=== PATIENT | male | born 1965 | race Caucasian/White ===

== ENCOUNTER 2020-01-25 12:42 | Outpatient (REF) | payer OTHER, SELFPAY ==
--- NOTE | 2020-01-25 13:19 | US_ITS ---
EXAMINATION: NONINVASIVE ASSESSMENT OF THE ARTERIES OF LEFT LOWER EXTREMITY Anoml Miguel MD CLINICAL INFORMATION: Left calf pain with history of stent TECHNIQUE: Left lower extremity duplex ultrasound was performed with velocity measurements and waveform analysis in the common femoral arteries, profunda femoris arteries, proximal mid and distal superficial femoral arteries, popliteal arteries and tibial vessels. This study was performed only at rest. COMPARISON: None FINDINGS: Velocities in cm/sec and phasicity as well as the presence of plaque are reported below. LEFT LEG: Minimal plaque is seen and triphasic throughout. Common Femoral: 76 Profunda Femoris: 37 Proximal SFA: 58 Mid SFA: 70 Distal SFA: 73 Popliteal: 33 Posterior tibial: 49 IMPRESSION: There is no evidence of any hemodynamically significant lower extremity arterial disease by pressure, waveform or duplex Doppler criteria at rest.
[2020-01-25 14:43] LABS: MANUAL DIFF FLAG NO
[2020-01-25 14:46] LABS: Basophils Absolute Auto 0.1 X10*3/uL (0.0-0.2); Basophils Percent Auto 0.7 % (0-2); Eosinophils Absolute Auto 0.7 X10*3/uL (0.0-0.4); Eosinophils Percent Auto 6.5 % (0-4); Hematocrit 39.7 % (42-52); Imm Gran Abs Auto 0.06 X10*3/uL (0.00-0.03); Imm Gran Pct Auto 0.6 % (0.0-0.4); Lymphocytes Absolute Auto 2.7 X10*3/uL (1.2-4.9); Lymphocytes Percent Auto 25.1 % (20-40); Mean Corpuscular HGB Conc 32.7 g/dl (31.0-36.0); Mean Corpuscular Hemoglobin 29.9 pg (27.0-33.0); Mean Corpuscular Volume 91.3 fL (80-98); Mean Platelet Volume 10.7 fL (9.4-12.4); Monocytes Absolute Auto 0.7 X10*3/uL (0.1-1.2); Neutrophils Absolute Auto 6.4 X10*3/uL (2.0-8.3); Neutrophils Percent Auto 60.1 % (45-73); Platelet Count 238 X10*3/uL (160-400); Red Blood Count 4.35 X10*6/uL (4.60-5.80); White Blood Count 10.6 X10*3/uL (4.8-10.8)
[2020-01-25 15:11] LABS: Estimated Average Glucose 306 mg/dL; Hemoglobin A1c % 12.3 %
[2020-01-25 15:12] LABS: Alanine Aminotransferase 39 U/L (0-40); Albumin Level 4.2 g/dL (3.5-5.0); Alkaline Phosphatase 90 U/L (39-117); Anion Gap 13 (12-20); Aspartate Amino Transferase 31 U/L (5-37); Bilirubin Total 0.5 mg/dL (0.0-1.0); Blood Urea Nitrogen 21 mg/dL (9-16); C Reactive Protein 1.14 mg/dL (< or = 0.50); Calcium 10.1 mg/dL (8.4-10.2); Carbon Dioxide 29 mmol/L (22-29); Chloride 99 mmol/L (96-108); Estimated Glomerular Filt Rate > 60; Glucose Random 332 mg/dL (60-115); Potassium 5.1 mmol/l (3.3-5.1); Sodium 136 mmol/L (135-145); Total Protein 7.6 g/dL (6.5-8.0)
== END 2020-01-25 12:43 | disposition home or self-care (01) ==
LOC: HO.US 12:42
PROVIDERS: PCP Internal Medicine; Visit Provider Internal Medicine
DX: M79.662 Pain in left lower leg (principal)
CPT/HCPCS: 36415; 80053; 83036; 85025; 86140; 93926; 93971

== ENCOUNTER 2020-04-19 11:45 | Outpatient (REF) | payer OTHER, SELFPAY ==
[2020-04-19 12:38] LABS: MANUAL DIFF FLAG NO
[2020-04-19 12:39] LABS: Basophils Absolute Auto 0.1 X10*3/uL (0.0-0.2); Basophils Percent Auto 0.7 % (0-2); Eosinophils Absolute Auto 0.6 X10*3/uL (0.0-0.4); Eosinophils Percent Auto 5.7 % (0-4); Hematocrit 40.8 % (42-52); Hemoglobin 13.4 g/dl (14.0-18.0); Imm Gran Abs Auto 0.04 X10*3/uL (0.00-0.03); Imm Gran Pct Auto 0.4 % (0.0-0.4); Lymphocytes Absolute Auto 2.7 X10*3/uL (1.2-4.9); Lymphocytes Percent Auto 26.6 % (20-40); Mean Corpuscular HGB Conc 32.8 g/dl (31.0-36.0); Mean Corpuscular Volume 91.5 fL (80-98); Mean Platelet Volume 10.4 fL (9.4-12.4); Monocytes Absolute Auto 0.7 X10*3/uL (0.1-1.2); Monocytes Percent Auto 6.3 % (2-11); Neutrophils Absolute Auto 6.2 X10*3/uL (2.0-8.3); Neutrophils Percent Auto 60.3 % (45-73); Platelet Count 248 X10*3/uL (160-400); Red Blood Count 4.46 X10*6/uL (4.60-5.80); Red Cell Distribution Width 12.9 % (11.0-16.0); White Blood Count 10.3 X10*3/uL (4.8-10.8)
[2020-04-19 12:48] LABS: Estimated Average Glucose 312 mg/dL; Hemoglobin A1c % 12.5 %
[2020-04-19 13:06] LABS: Alanine Aminotransferase 35 U/L (0-40); Albumin Level 4.3 g/dL (3.5-5.0); Alkaline Phosphatase 86 U/L (39-117); Anion Gap 14 (12-20); Aspartate Amino Transferase 21 U/L (5-37); Bilirubin Total 0.6 mg/dL (0.0-1.0); Blood Urea Nitrogen 21 mg/dL (9-16); Calcium 9.8 mg/dL (8.4-10.2); Carbon Dioxide 28 mmol/L (22-29); Chloride 99 mmol/L (96-108); Estimated Glomerular Filt Rate > 60; Glucose Random 348 mg/dL (60-115); Potassium 5.1 mmol/l (3.3-5.1); Sodium 136 mmol/L (135-145)
[2020-04-19 14:37] LABS: Creatinine Urine 63.44 mg/dL; Microalbum/Creatinine Ratio Ur 77.2 ug/mg cr
== END 2020-04-19 11:46 | disposition home or self-care (01) ==
LOC: HO.LAB 11:45
PROVIDERS: PCP Internal Medicine; Visit Provider Internal Medicine
DX: E11.9 Type 2 diabetes mellitus without complications (principal); I10 Essential (primary) hypertension
CPT/HCPCS: 36415; 80053; 82043; 83036; 85025

== ENCOUNTER → 2020-05-15 12:59 | Outpatient (BNVA) | payer OTHER, SELFPAY | PROVIDERS: PCP Internal Medicine; Visit Provider Internal Medicine | DX: E66.01 Morbid (severe) obesity due to excess calories (principal); G47.33 Obstructive sleep apnea (adult) (pediatric); J98.4 Other disorders of lung | CPT/HCPCS: 99202 ==

== ENCOUNTER 2020-05-15 14:09 | Outpatient (REF) | payer OTHER, SELFPAY ==
--- NOTE | 2020-05-15 16:51 | PFT_ITS ---
FLOWS: FEV1 of 70% of predicted at 2.89 L. FVC 64% of predicted at 3.40 L. FEV1 to FVC ratio of 0.85. No bronchodilator response. LUNG VOLUMES: Total lung capacity 86% of predicted at 6.40 L. Residual volume 118% of predicted at 2.63 L. Slow vital capacity 73% of predicted at 3.77 L. Expiratory reserve volume 4% of predicted at 0.08 L. Diffusion capacity is normal. IMPRESSION: No obstructive or restrictive ventilatory defect. No bronchodilator response. Decreased expiratory reserve volume suggests extrathoracic restriction likely secondary to abdominal obesity. Neymar Vazquez MD AP/MODL / [id number]
== END 2020-05-15 14:10 | disposition home or self-care (01) ==
LOC: HO.RESP 14:09
PROVIDERS: Visit Provider Internal Medicine
DX: J98.4 Other disorders of lung (principal); E66.01 Morbid (severe) obesity due to excess calories
CPT/HCPCS: 94060; 94727; 94729

== ENCOUNTER 2020-06-26 12:36 | Emergency (ER) | payer OTHER, SELFPAY ==
--- NOTE | ~2020-06-26 | XR_ITS ---
EXAMINATION: XR FOOT, LEFT CLINICAL INFORMATION: Question foreign body COMPARISON: 01/15/2019 TECHNIQUE: AP, lateral, and oblique views of the left foot. FINDINGS: Patient is status post amputation of the fifth ray. There is a chronic fourth metatarsal fracture with prominent callus formation and bony remodeling. Increased healing since the prior study from 2019. There is no acute fractures seen. Alignment is otherwise maintained. No osseous erosions. Achilles heel spur. Mild soft tissue swelling of the forefoot. No radiopaque foreign body. XR/XR foot LT min 3V IMPRESSION: No radiopaque foreign body. Continued healing of the fourth metatarsal fracture with bone callus formation present. No acute osseous abnormality.
[2020-06-26 12:50] VITALS: BP 183/81; PULSE 91; RESP 16; TEMP 36.6; O2SAT 97; BMI 47.2
--- NOTE | 2020-06-26 15:14 | ED_ITS ---
HPI - Wound/Laceration General Chief Complaint: Wound/Laceration Stated Complaint: puncture wound - foot Time Seen by Provider: 06/26/20 15:14 Source: patient Mode of arrival: ambulatory Limitations: no limitations History of Present Illness HPI narrative: 54-year-old male with a past medical history of diabetes and neuropathy being followed by his PCP presenting to the ED with complaints of a puncture wound to his left foot after walking outside with his crocs outside unsure how he sustained a puncture wound. He is unsure if he has a foreign body. Reports he recently had his tetanus approximately 1 year ago. Denies any other symptoms complaints or concerns at this time. Onset (ago): hour(s) (A few hours prior to arrival) Location: other (Left foot plantar aspect) Place: outdoors Patient tetanus UTD: Yes Context: accidental Associated symptoms: none Related Data Home Medications Medication Instructions Recorded Confirmed clopidogrel 75 mg tablet 75 mg PO DAILY 05/15/20 gabapentin 300 mg capsule 300 mg PO QID PRN cap 05/15/20 glipizide 5 mg tablet 5 mg PO BID 05/15/20 insulin glargine 100 unit/mL (3 64 unit SUBCUT ONCE ml 05/15/20 mL) subcutaneous pen lisinopril 2.5 mg tablet 2.5 mg PO DAILY 05/15/20 metformin 1,000 mg tablet 1,000 mg PO BID 05/15/20 simvastatin 20 mg tablet 20 mg PO DAILY 05/15/20 Previous Rx's Medication Instructions Recorded ciprofloxacin HCl [Cipro] 500 mg PO BID 14 Days #28 tab 06/26/20 doxycycline monohydrate 100 mg PO BID 14 Days #28 cap 06/26/20 Allergies Allergy/AdvReac Type Severity Reaction Status Date / Time penicillin G Allergy Unknown Unknown Verified 05/15/20 13:31 Review of Systems Review of Systems: Constitutional : No Fever, No Chills, Cardiovascular : No Chest Pain, No SOB Respiratory : No Dyspnea Gastrointestinal : No abdominal pain Musculoskeletal : No Joint Swelling Skin : positive skin laceration, No Foreign bodies, No rash, No surrounding erythema Neuro : No Weakness, No Numbness/tingling Psych : No SI/HI/thoughts of self injury Yes all other systems are reviewed and are negative PMFSH Past Medical History Attestation statement: The following information was validated with the patient. Medical History Diabetes Morbid obesity RIGOBERTO (obstructive sleep apnea) Restrictive lung disease Social History Social History Advance Directives: No Advance Directives Information Provided: No Physical Exam Vital Signs: Vital Signs: Last Vital Signs Temp 97.8 F 06/26/20 12:50 Pulse 91 06/26/20 12:50 Resp 16 06/26/20 12:50 BP 183/81 H 06/26/20 12:50 Pulse Ox 97 06/26/20 12:50 Body Mass Index 47.2 vital signs have been reviewed as normal and appeared to be correct. Blood pressure hypertensive. Heart rate normal. Respiration rate normal. Temperature normal. Oxygen saturation normal. Appearance: Alert. Oriented X3. No acute distress. Head: Normal external exam. Normocephalic. Atraumatic. Eyes: PERRLA. EOMI. Conjunctiva and sclera normal. Eyelids normal. ENT: EAC normal. TM's Normal. Pharynx normal. Uvula midline. Moist mucous membranes. Neck: Normal inspection. Neck supple. FROM. No adenopathy. No meningeal signs. No neck mass noted. CVS: Normal heart rate and rhythm. Heart sound normal. No murmurs noted. Pulses normal throughout. Respiratory: No respiratory distress. Painless inspiration. Breath sounds normal. No wheezes/rales/rhonchi noted. Chest nontender. No accessory muscle usage noted or decreased air movement noted. Back: Full range of motion noted. Skin: Skin warm and dry. Normal skin color. Normal skin turgor. No rashes/lesions/lacerations noted. Extremities: To left plantar aspect distal aspect patient has puncture wound no foreign bodies noted. No signs of infection. No streaking/induration/fluctuance noted. No lower extremity edema. No calf tenderness noted. Otherwise all other Extremities exhibit normal range of motion and nontender. Neuro: Oriented X 3. No motor deficit. No sensory deficit. Reflexes normal. Course Course Course Narrative: 54-year-old male with a past medical history of diabetes and diabetic neuropathy being followed by his PCP presenting to the ED after he sustained a puncture wound prior to arrival outside of his house while wearing his shoes. He is unsure how he sustained the injury. No signs of infection at this time. X-ray negative for any foreign bodies. Will DC home with antibiotics and symptomatic treatment as patient is already on up-to-date on his tetanus and instructions return if any new or worsening symptoms to follow up with primary care provider. Patient understands agrees the plan. MDM - Wound/Laceration Medical Records Attestation: I reviewed the patient's medical records. Imaging Data Left foot x-ray: Attestation: I personally reviewed and interpreted this imaging study as follows: Radiologist's impression: FINDINGS: Patient is status post amputation of the fifth ray. There is a chronic fourth metatarsal fracture with prominent callus formation and bony remodeling. Increased healing since the prior study from 2019. There is no acute fractures seen. Alignment is otherwise maintained. No osseous erosions. Achilles heel spur. Mild soft tissue swelling of the forefoot. No radiopaque foreign body. XR/XR foot LT min 3V IMPRESSION: No radiopaque foreign body. Continued healing of the fourth metatarsal fracture with bone callus formation present. No acute osseous abnormality. Discharge Plan Discharge Clinical Impression: Puncture wound of foot Patient Disposition: Home, Self-Care Instructions: Puncture Wound in the Foot (ED) Additional Instructions: Your left foot x-ray revealed FINDINGS: Patient is status post amputation of the fifth ray. There is a chronic fourth metatarsal fracture with prominent callus formation and bony remodeling. Increased healing since the prior study from 2019. There is no acute fractures seen. Alignment is otherwise maintained. No osseous erosions. Achilles heel spur. Mild soft tissue swelling of the forefoot. No radiopaque foreign body. XR/XR foot LT min 3V IMPRESSION: No radiopaque foreign body. Continued healing of the fourth metatarsal fracture with bone callus formation present. No acute osseous abnormality. Please follow-up with your primary care provider and I provided you a efficiency clerk below. Return if any new or worsening symptoms. Prescriptions: New ciprofloxacin HCl [Cipro] 500 mg tablet 500 mg PO BID 14 Days Qty: 28 RF: 0 doxycycline monohydrate 100 mg capsule 100 mg PO BID 14 Days Qty: 28 RF: 0 No Action metformin 1,000 mg tablet 1,000 mg PO BID RF: 0 simvastatin 20 mg tablet 20 mg PO DAILY RF: 0 glipizide 5 mg tablet 5 mg PO BID RF: 0 lisinopril 2.5 mg tablet 2.5 mg PO DAILY RF: 0 clopidogrel [Plavix] 75 mg tablet 75 mg PO DAILY RF: 0 gabapentin 300 mg capsule 300 mg PO QID PRNRF: 0 Lantus Solostar U-100 Insulin 100 unit/mL (3 mL) insulin pen 64 unit subcut ONCE RF: 0 Referrals: Gagan Prater [Physician] - 2 days Print Language: Amharic
== END 2020-06-26 15:45 | disposition home or self-care (01) ==
PROVIDERS: Emergency Provider Emergency Medicine; PCP Internal Medicine
DX: S91.332A Puncture wound without foreign body, left foot, initial encounter (principal); W45.8XXA Other foreign body or object entering through skin, initial encounter; E11.9 Type 2 diabetes mellitus without complications; Y93.01 Activity, walking, marching and hiking; Y92.480 Sidewalk as the place of occurrence of the external cause; Y99.9 Unspecified external cause status
CPT/HCPCS: 73630; 99283

== ENCOUNTER → 2020-07-03 08:40 | Outpatient (REF) | payer OTHER, SELFPAY | LOC: HO.SL 08:40 | PROVIDERS: PCP Internal Medicine; Visit Provider Internal Medicine | DX: G47.33 Obstructive sleep apnea (adult) (pediatric) (principal); E66.01 Morbid (severe) obesity due to excess calories | CPT/HCPCS: 95806 ==

== ENCOUNTER 2020-07-05 08:54 | Outpatient (REF) | payer OTHER, SELFPAY ==
[2020-07-05 10:27] LABS: Basophils Absolute Auto 0.1 X10*3/uL (0.0-0.2); Basophils Percent Auto 0.7 % (0-2); Eosinophils Absolute Auto 0.6 X10*3/uL (0.0-0.4); Eosinophils Percent Auto 6.5 % (0-4); Hematocrit 40.9 % (42-52); Hemoglobin 13.2 g/dl (14.0-18.0); Imm Gran Abs Auto 0.02 X10*3/uL (0.00-0.03); Imm Gran Pct Auto 0.2 % (0.0-0.4); Lymphocytes Absolute Auto 2.4 X10*3/uL (1.2-4.9); Lymphocytes Percent Auto 24.8 % (20-40); MANUAL DIFF FLAG NO; Mean Corpuscular HGB Conc 32.3 g/dl (31.0-36.0); Mean Corpuscular Hemoglobin 29.7 pg (27.0-33.0); Mean Corpuscular Volume 91.9 fL (80-98); Mean Platelet Volume 10.4 fL (9.4-12.4); Monocytes Absolute Auto 0.6 X10*3/uL (0.1-1.2); Monocytes Percent Auto 6.5 % (2-11); Neutrophils Absolute Auto 5.8 X10*3/uL (2.0-8.3); Neutrophils Percent Auto 61.3 % (45-73); Platelet Count 227 X10*3/uL (160-400); Red Blood Count 4.45 X10*6/uL (4.60-5.80); Red Cell Distribution Width 12.8 % (11.0-16.0); White Blood Count 9.5 X10*3/uL (4.8-10.8)
[2020-07-05 10:42] LABS: Estimated Average Glucose 298 mg/dL
[2020-07-05 11:06] LABS: Alanine Aminotransferase 34 U/L (0-40); Albumin Level 4.3 g/dL (3.5-5.0); Alkaline Phosphatase 82 U/L (39-117); Anion Gap 14 (12-20); Aspartate Amino Transferase 27 U/L (5-37); Bilirubin Total 1.1 mg/dL (0.0-1.0); Blood Urea Nitrogen 19 mg/dL (9-16); Calcium 9.1 mg/dL (8.4-10.2); Carbon Dioxide 28 mmol/L (22-29); Chloride 98 mmol/L (96-108); Estimated Glomerular Filt Rate > 60; Glucose Fasting 325 mg/dL (60-99); Potassium 5.2 mmol/L (3.3-5.1); Sodium 135 mmol/L (135-145); Total Protein 7.7 g/dL (6.5-8.0)
== END 2020-07-05 08:55 | disposition home or self-care (01) ==
LOC: HO.10HDL 08:54
PROVIDERS: Visit Provider Internal Medicine
DX: E11.9 Type 2 diabetes mellitus without complications (principal); I12.9 Hypertensive chronic kidney disease with stage 1 through stage 4 chronic kidney disease, or unspecified chronic kidney disease; N18.9 Chronic kidney disease, unspecified
CPT/HCPCS: 36415; 80053; 83036; 85025

== ENCOUNTER → 2020-07-10 09:30 | Outpatient (BNVA) | payer OTHER, SELFPAY | PROVIDERS: PCP Internal Medicine; Visit Provider Internal Medicine | DX: G47.33 Obstructive sleep apnea (adult) (pediatric) (principal); E66.01 Morbid (severe) obesity due to excess calories; Z99.81 Dependence on supplemental oxygen | CPT/HCPCS: 99212 ==

== ENCOUNTER → 2020-08-08 19:18 | Outpatient (REF) | payer OTHER, SELFPAY | LOC: HO.SL 19:18 | PROVIDERS: PCP Internal Medicine; Visit Provider Internal Medicine | DX: G47.33 Obstructive sleep apnea (adult) (pediatric) (principal); G47.34 Idiopathic sleep related nonobstructive alveolar hypoventilation; R06.83 Snoring; E66.01 Morbid (severe) obesity due to excess calories | CPT/HCPCS: 95811 ==

== ENCOUNTER 2020-08-20 15:41 | Emergency (ER) | payer OTHER, SELFPAY ==
--- NOTE | ~2020-08-20 | XR_ITS ---
EXAMINATION: XR FOOT, LEFT CLINICAL INFORMATION: Concern for osteomyelitis of the metatarsal bone COMPARISON: 06/26/2020 TECHNIQUE: AP, lateral, and oblique views of the left foot. FINDINGS: Status post amputation of the fifth ray. Chronic fourth metatarsal fracture with surrounding callus formation and bony remodeling. No focal loss of bone mineral density to suggest osteomyelitis. There is cystic change in the middle cuneiform, which is unchanged since the prior study. Overlying soft tissues are intact. No radiopaque foreign body. XR/XR foot LT min 3V IMPRESSION: No radiographic evidence for osteomyelitis. Cystic change within the middle cuneiform, similar to the prior study. Status post amputation of the fifth ray. Chronic fourth metatarsal fracture with callus formation and bony remodeling.
[2020-08-20 15:58] VITALS: BP 148/90; PULSE 100; RESP 20; TEMP 36.8; O2SAT 95; BMI 44.7
--- NOTE | 2020-08-20 16:16 | ED.LOWEXIN ---
HPI - Extremity Injury (Lower) General Chief Complaint: Extremity Injury, Lower Stated Complaint: wound check Time Seen by Provider: 08/20/20 16:04 Source: patient Mode of arrival: ambulatory Limitations: no limitations History of Present Illness HPI Narrative: 54 yo male with DM, PVD here with chronic wound to L foot near 5th metatarsal - usually debrided at podiatry office but missed last week - notes last night increased blood spots and the area around it is white and raised no systemic symptoms, he did shower then put a bandaid on the wound ? area raised due to being wet complaint: other (chronic L foot wound) Onset (ago): day(s) (chronic but noted blood spots last night) Injury: Left: foot Type of Injury: puncture wound (nail puncture 5 weeks ago) Severity: mild Relieving factors: nothing Exacerbating factors: nothing Context: stepped on nail (5 weeks with podiatry since wound gets debrided weekly ) Associated symptoms: other (no foul odors but noted it seems to be more white with some red blood spots) Other symptoms: none Treatments prior to arrival: bandage Related Data Home Medications Medication Instructions Recorded Confirmed clopidogrel 75 mg tablet 75 mg PO DAILY 05/15/20 gabapentin 300 mg capsule 300 mg PO QID PRN cap 05/15/20 glipizide 5 mg tablet 5 mg PO BID 05/15/20 insulin glargine 100 unit/mL (3 64 unit SUBCUT ONCE ml 05/15/20 mL) subcutaneous pen lisinopril 2.5 mg tablet 2.5 mg PO DAILY 05/15/20 metformin 1,000 mg tablet 1,000 mg PO BID 05/15/20 simvastatin 20 mg tablet 20 mg PO DAILY 05/15/20 blood sugar diagnostic #10 ea 07/10/20 pen needle, diabetic 32 gauge x #50 ea 07/10/20 Previous Rx's Medication Instructions Recorded ciprofloxacin HCl [Cipro] 500 mg PO BID 14 Days #28 tab 06/26/20 doxycycline monohydrate 100 mg PO BID 14 Days #28 cap 06/26/20 cephalexin 500 mg PO BID 7 Days #14 cap 08/20/20 doxycycline hyclate 100 mg PO BID 7 Days #14 cap 08/20/20 Allergies Allergy/AdvReac Type Severity Reaction Status Date / Time penicillin G Allergy Unknown Unknown Verified 07/10/20 09:50 Review of Systems Review of Systems: Constitutional : No Fever, No Chills, Cardiovascular : No Chest Pain, No SOB Respiratory : No Dyspnea Gastrointestinal : No abdominal pain Musculoskeletal : No Joint Swelling Skin : No rash, positive skin lesion Neuro : No Weakness, No Numbness : no urinary smptoms All other systems are reviewed and are negative [facility] Past Medical History Attestation statement: The following information was validated with the patient. Medical History Diabetes Morbid obesity Nocturnal hypoxemia RIGOBERTO (obstructive sleep apnea) Restrictive lung disease Social History Social History (Updated 08/20/20 @ 16:21 by Renee Strong DO) Smoking Status: Never smoker Use of substances other than those prescribed or required for medical reasons: No Advance Directives: No Advance Directives Information Provided: No Physical Exam Vital Signs: Vital Signs: Last Vital Signs Temp 98.3 F 08/20/20 15:58 Pulse 100 08/20/20 15:58 Resp 20 08/20/20 15:58 BP 148/90 H 08/20/20 15:58 Pulse Ox 95 08/20/20 15:58 Body Mass Index 44.7 Appearance: Alert. Oriented X3. No acute distress. Eyes: Pupils equal, round and reactive to light. ENT: Pharynx normal. Neck: Normal inspection. Neck supple. CVS: Normal heart rate and rhythm. Pulses normal. Respiratory: No respiratory distress. Breath sounds normal. Abdomen: Soft and nontender. Skin: Skin warm and dry. Normal skin color. Normal skin turgor. Extremities: No lower extremity edema. No calf ttp L foot plantar surface puncture wound mild ss drainage no foul odor, area around it is thickened and white almost like a wet callous no signs of purulence, no cellulitis, no odor, 2+ DP pulse Neuro: Oriented X 3. No motor deficit. No sensory deficit. Course Course Course Narrative: chronically elevated glucose SQ insulin ordered, chronic elevated CRP, no WBC count no shift likely PO antibiotics and DC with close podiatry follow up at this time MDM - Extremity Injury (Lower) MDM Narrative Medical decision making narrative: 54 yo male with DM here with L foot chronic puncture wound - no signs of infection, suspect he kept a wet bandaid on the area and it became more thickened - no obvious infection, at this time given risk factors xray for osteo ordered, labs, infl markers, can follow up with his cosmetic consultant today - dispo per results and findings. Lab Data Result diagrams: 08/20/20 16:31 08/20/20 16:31 Labs: Lab Results 08/20/20 08/20/20 Range/Units 16:31 16:31 WBC 10.6 (4.8-10.8) X10*3/uL RBC 4.21 L (4.60-5.80) X10*6/uL Hgb 12.7 L (14.0-18.0) g/dl Hct 38.5 L (42-52) % MCV 91.4 (80-98) fL MCH 30.2 (27.0-33.0) pg MCHC 33.0 (31.0-36.0) g/dl RDW 13.0 (11.0-16.0) % Plt Count 197 (160-400) X10*3/uL MPV 10.1 (9.4-12.4) fL Immature Gran % (Auto) 0.2 (0.0-0.4) % Neut % (Auto) 70.1 (45-73) % Lymph % (Auto) 15.9 L (20-40) % Edwards % (Auto) 8.4 (2-11) % Eos % (Auto) 4.9 H (0-4) % Baso % (Auto) 0.5 (0-2) % Lymph # (Auto) 1.7 (1.2-4.9) X10*3/uL Edwards # (Auto) 0.9 (0.1-1.2) X10*3/uL Eos # (Auto) 0.5 H (0.0-0.4) X10*3/uL Baso # (Auto) 0.1 (0.0-0.2) X10*3/uL Abs Immat Gran (auto) 0.02 (0.00-0.03) X10*3/uL Absolute Neuts (auto) 7.5 (2.0-8.3) X10*3/uL Absolute Nucleated RBC 0.000 (0.0-0.012) X10*3/uL Nucleated RBC % (auto) 0.0 (0.0-0.2) /100WBC Sodium 135 (135-145) mmol/L Potassium 5.0 (3.3-5.1) mmol/L Chloride 98 (96-108) mmol/L Carbon Dioxide 28 (22-29) mmol/L Anion Gap 14 (12-20) BUN 21 H (9-16) mg/dL Creatinine 1.23 (0.5-1.4) mg/dL Estim Creat Clear Calc 104.5 Estimated GFR > 60 Random Glucose 417 H* (60-115) mg/dL Calcium 9.6 (8.4-10.2) mg/dL C-Reactive Protein 2.72 H (< or = 0.50) mg/dL Discharge Plan Discharge Clinical Impression: Puncture wound, Callus of foot, Acute hyperglycemia Patient Disposition: Home, Self-Care Instructions: Puncture Wound (ED) Additional Instructions: return to ED for any worsening symptoms or concerns PLEASE SEE YOUR ANVIL WORKER THIS WEEK SOON POSSIBLE keep wound clean and dry at all times Prescriptions: New doxycycline hyclate 100 mg capsule 100 mg PO BID 7 Days Qty: 14 RF: 0 cephalexin 500 mg capsule 500 mg PO BID 7 Days Qty: 14 RF: 0 No Action ciprofloxacin HCl [Cipro] 500 mg tablet 500 mg PO BID 14 Days Qty: 28 RF: 0 doxycycline monohydrate 100 mg capsule 100 mg PO BID 14 Days Qty: 28 RF: 0 (DME) pen needle, diabetic 32 gauge x 5/32 needle See Rx Instructions ea .ROUTE .MEDSUPPLY Qty: 50 RF: 0 (DME) FreeStyle Test Strip See Rx Instructions ea .ROUTE BID Qty: 10 RF: 0 metformin 1,000 mg tablet 1,000 mg PO BID RF: 0 simvastatin 20 mg tablet 20 mg PO DAILY RF: 0 glipizide 5 mg tablet 5 mg PO BID RF: 0 lisinopril 2.5 mg tablet 2.5 mg PO DAILY RF: 0 clopidogrel [Plavix] 75 mg tablet 75 mg PO DAILY RF: 0 gabapentin 300 mg capsule 300 mg PO QID PRNRF: 0 Lantus Solostar U-100 Insulin 100 unit/mL (3 mL) insulin pen 64 unit subcut ONCE RF: 0 Stand Alone Forms: Work/School Release
[2020-08-20 16:35] LABS: MANUAL DIFF FLAG NO
[2020-08-20 16:37] LABS: Basophils Absolute Auto 0.1 X10*3/uL (0.0-0.2); Basophils Percent Auto 0.5 % (0-2); Eosinophils Absolute Auto 0.5 X10*3/uL (0.0-0.4); Eosinophils Percent Auto 4.9 % (0-4); Hematocrit 38.5 % (42-52); Hemoglobin 12.7 g/dl (14.0-18.0); Imm Gran Abs Auto 0.02 X10*3/uL (0.00-0.03); Imm Gran Pct Auto 0.2 % (0.0-0.4); Lymphocytes Absolute Auto 1.7 X10*3/uL (1.2-4.9); Lymphocytes Percent Auto 15.9 % (20-40); Mean Corpuscular Hemoglobin 30.2 pg (27.0-33.0); Mean Corpuscular Volume 91.4 fL (80-98); Mean Platelet Volume 10.1 fL (9.4-12.4); Monocytes Absolute Auto 0.9 X10*3/uL (0.1-1.2); Monocytes Percent Auto 8.4 % (2-11); Neutrophils Absolute Auto 7.5 X10*3/uL (2.0-8.3); Neutrophils Percent Auto 70.1 % (45-73); Platelet Count 197 X10*3/uL (160-400); Red Blood Count 4.21 X10*6/uL (4.60-5.80); White Blood Count 10.6 X10*3/uL (4.8-10.8)
[2020-08-20 17:12] LABS: Anion Gap 14 (12-20); Blood Urea Nitrogen 21 mg/dL (9-16); C Reactive Protein 2.72 mg/dL (< or = 0.50); Calcium 9.6 mg/dL (8.4-10.2); Carbon Dioxide 28 mmol/L (22-29); Chloride 98 mmol/L (96-108); Creatinine Clr Calc Pharmacy 104.5; Estimated Glomerular Filt Rate > 60; Glucose Random 417 mg/dL (60-115); Sodium 135 mmol/L (135-145)
[2020-08-20 17:29] LABS: Erythrocyte Sedimentation Rate 44 MM/HR (0-15)
[2020-08-20] MEDS: Insulin Lispro 100 UNIT/ML 3 ML VIAL SUBCUT (18:19)
[2020-08-20] MEDS: cephALEXin 500 MG CAPSULE PO (18:19)
[2020-08-20 18:37] VITALS: BP 133/78; PULSE 97; RESP 14; O2SAT 100
[2020-08-20 19:04] LABS: Glucose, Whole Blood 291 mg/dL (60-115)
--- NOTE | 2020-08-20 19:07 | PC.NURSE ---
POC 291. DR CASTELAN aware. ok to d/c.
== END 2020-08-20 19:10 | disposition home or self-care (01) ==
PROVIDERS: Emergency Provider Emergency Medicine; PCP Internal Medicine
DX: L84 Corns and callosities (principal); E11.65 Type 2 diabetes mellitus with hyperglycemia; S91.332D Puncture wound without foreign body, left foot, subsequent encounter; W45.0XXD Nail entering through skin, subsequent encounter; Z79.4 Long term (current) use of insulin
CPT/HCPCS: 36415; 73630; 80048; 82947; 85025; 85652; 86140; 99283; 99284

== ENCOUNTER 2020-10-06 06:48 | Outpatient (REF) | payer OTHER, SELFPAY ==
[2020-10-06 07:47] LABS: MANUAL DIFF FLAG NO
[2020-10-06 07:54] LABS: Basophils Absolute Auto 0.1 X10*3/uL (0.0-0.2); Basophils Percent Auto 0.7 % (0-2); Eosinophils Absolute Auto 0.6 X10*3/uL (0.0-0.4); Hematocrit 40.6 % (42-52); Hemoglobin 13.1 g/dl (14.0-18.0); Imm Gran Abs Auto 0.04 X10*3/uL (0.00-0.03); Imm Gran Pct Auto 0.4 % (0.0-0.4); Lymphocytes Absolute Auto 2.3 X10*3/uL (1.2-4.9); Lymphocytes Percent Auto 25.4 % (20-40); Mean Corpuscular HGB Conc 32.3 g/dl (31.0-36.0); Mean Corpuscular Hemoglobin 29.4 pg (27.0-33.0); Mean Corpuscular Volume 91.2 fL (80-98); Mean Platelet Volume 10.5 fL (9.4-12.4); Monocytes Absolute Auto 0.7 X10*3/uL (0.1-1.2); Monocytes Percent Auto 8.1 % (2-11); Neutrophils Absolute Auto 5.5 X10*3/uL (2.0-8.3); Neutrophils Percent Auto 59.4 % (45-73); Platelet Count 239 X10*3/uL (160-400); Red Blood Count 4.45 X10*6/uL (4.60-5.80); Red Cell Distribution Width 13.2 % (11.0-16.0); White Blood Count 9.2 X10*3/uL (4.8-10.8)
[2020-10-06 08:03] LABS: Estimated Average Glucose 306 mg/dL; Hemoglobin A1c % 12.3 %
[2020-10-06 08:08] LABS: Microalbum/Creatinine Ratio Ur 94.7 ug/mg cr
[2020-10-06 08:12] LABS: Alanine Aminotransferase 35 U/L (0-40); Albumin Level 4.2 g/dL (3.5-5.0); Alkaline Phosphatase 82 U/L (39-117); Anion Gap 15 (12-20); Aspartate Amino Transferase 22 U/L (5-37); Bilirubin Total 0.5 mg/dL (0.0-1.0); Blood Urea Nitrogen 22 mg/dL (9-16); Calcium 9.4 mg/dL (8.4-10.2); Carbon Dioxide 23 mmol/L (22-29); Chloride 102 mmol/L (96-108); Estimated Glomerular Filt Rate 57; Glucose Random 273 mg/dL (60-115); Potassium 5.1 mmol/L (3.3-5.1); Sodium 135 mmol/L (135-145); Total Protein 7.8 g/dL (6.5-8.0)
== END 2020-10-06 06:49 | disposition home or self-care (01) ==
LOC: HO.LAB 06:48
PROVIDERS: PCP Internal Medicine; Visit Provider Internal Medicine
DX: E11.9 Type 2 diabetes mellitus without complications (principal); I10 Essential (primary) hypertension; G62.9 Polyneuropathy, unspecified; R25.2 Cramp and spasm
CPT/HCPCS: 36415; 80053; 82043; 83036; 85025

== ENCOUNTER 2020-10-07 14:38 | Inpatient (IN) | payer OTHER, SELFPAY ==
[2020-10-07] VITALS (8 sets, daily range): BP systolic 112–150; BP diastolic 56–81; PULSE 105–116; RESP 16–26; TEMP 37.7–39.4; O2SAT 92–95; BMI 44.7
--- NOTE | ~2020-10-07 | XR_ITS ---
EXAMINATION: XR FOOT, LEFT CLINICAL INFORMATION: Left foot pain, rule out osteomyelitis. COMPARISON: 08/20/2020 left foot radiographs. TECHNIQUE: AP, lateral, and oblique views of the left foot. FINDINGS: Post surgical changes are again seen with resection of the fifth digit. There is a healed fracture with callus formation and associated deformity in the fourth metatarsal. Nonacute deformity is also seen in the proximal aspects of the second and third metatarsals. Cystic changes in the middle cuneiform as well as in the anterior calcaneus is again seen without significant change. There is a moderate-sized retrocalcaneal spur. Mild soft tissue swelling is seen. XR/XR foot LT min 3V IMPRESSION: Old healed fractures and degenerative changes without fracture or overt evidence for osteomyelitis.
--- NOTE | ~2020-10-07 | MR_ITS ---
EXAMINATION: MRI FOOT, LEFT WITHOUT AND WITH CONTRAST CLINICAL INFORMATION: Nonhealing diabetic wound COMPARISON: Radiograph 10/07/2020. MRI 05/18/2018 TECHNIQUE: Multisequence multidimensional MR acquisition of the left forefoot on a 1.5 Sujey magnet performed before and after administration of 10 mL of Gadavist IV contrast. FINDINGS: Chronic healed fracture of the fourth metatarsal shaft. Chronic amputation of the fifth ray. No definite soft tissue defect identified. There is minimal superficial enhancement along the plantar aspect of the first digit. This may represent a wound. There is also some heterogeneous enhancement in the soft tissues laterally, near the base of the fourth metatarsal at the site of previous fifth digit amputation. No fluid collection. No bone marrow signal abnormality. No marrow edema. No abnormal enhancement. No clear evidence of osseous erosion. Small amount of fluid seen at the distal aspect of the extensor tendon sheath of the fourth digit, possibly tenosynovitis. Mild deep muscular edema. MR/MR foot LT wo/w con IMPRESSION: Chronic changes with amputation of the fifth ray. Chronic healed fourth metatarsal fracture. No acute bone marrow signal abnormality. There is mild soft tissue irregularity along the lateral forefoot. No drainable fluid collection identified.
--- NOTE | ~2020-10-07 | US_ITS ---
EXAMINATION: NONINVASIVE ASSESSMENT OF THE ARTERIES OF BOTH LOWER EXTREMITIES WITH DUPLEX CLINICAL INFORMATION: Nonhealing wound left foot TECHNIQUE: Bilateral duplex Doppler techniques with wave form analysis and measurement of velocities in the common femoral, profunda femoral, superficial femoral, popliteal and tibial arteries. The study was performed only at rest. COMPARISON: Previous exam January 2020 FINDINGS: a) AT REST: RIGHT LEG: Right direct duplex Doppler findings: There is vessel wall calcification. * Common femoral artery: 118 cm/s, Diastolic flow reversal: Yes * Superficial femoral artery (proximal, mid, distal): 82, 98 and 57 cm/s, Diastolic flow reversal: Yes * Popliteal artery: 45 cm/s, Diastolic flow reversal: Yes * Posterior tibial artery: 127 cm/s, Diastolic flow reversal: No area in the right peroneal artery is not seen. LEFT LEG: Left direct duplex Doppler findings: There is vessel wall calcification. * Common femoral artery: 96 cm/s, Diastolic flow reversal: Yes * Superficial femoral artery (proximal, mid, distal): 92, 112 and 75 cm/s, Diastolic flow reversal: Yes * Popliteal artery: 63 cm/s, Diastolic flow reversal: Yes * Posterior tibial artery: Occluded. The left peroneal artery is patent. Peak systolic velocities are 80 cm/s with a biphasic waveform. 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 Occluded left posterior tibial artery and increased peak systolic velocity and abnormal waveform in the right posterior tibial artery.
--- NOTE | ~2020-10-07 | US_ITS ---
EXAMINATION: US VENOUS ULTRASOUND WITH DOPPLER LOWER EXTREMITY, LEFT CLINICAL INFORMATION: Pain, swelling, rule out DVT COMPARISON: Venous ultrasound 10/04/2019 TECHNIQUE: Ultrasound of the deep veins is performed from the hip to the calf with compression sonography and color and pulse Doppler assessment. Spectral analysis with color-flow imaging is performed. Technically challenging exam due to patient body habitus and inability to completely compress due to discomfort. FINDINGS: There is normal venous compression and respiratory variation and augmented flow. The visualized common femoral vein, superficial femoral vein, profunda femoral vein, popliteal vein, and the trifurcation region shows no evidence of deep venous thrombosis. There is no significant popliteal fossa cyst. There is a shadowing calcification along the anterior lam If the patient's symptoms persist, followup ultrasound in 5 days 7 days might be of value to exclude proximal propagation from a non-visualized calf vein. US/US venous duplex LE LT IMPRESSION: No DVT demonstrated in the left lower extremity.
[2020-10-07] MEDS: Acetaminophen 325 MG TABLET 650 MG PO (15:13)
--- NOTE | 2020-10-07 15:30 | ED.WOUNDLAC ---
HPI - Wound/Laceration General Chief Complaint: Wound/Laceration Stated Complaint: wound check Time Seen by Provider: 10/07/20 15:03 Source: patient Mode of arrival: ambulatory Limitations: no limitations History of Present Illness HPI narrative: 54 yo male with hx of DM, PVD sees Nicki has had stent in the past, chronic L foot wound post stepping on a nail in August - follows up with [facility] wound management, they have had him on bactrim for increased drainage and changes to the wound on L foot for the past week, last night he noted fevers and increased purulence Onset (ago): month(s) (since August fluctuating in intensity but much worse in past two days) Extremity Location: left: foot Place: home Patient tetanus UTD: Yes Context: other (stepped on a nail in August) Associated symptoms: fever and other (nausea, increased drainage and odor from foot) Treatments prior to arrival: other (has been on bactrim) Related Data Home Medications Medication Instructions Recorded Confirmed clopidogrel 75 mg tablet 75 mg PO DAILY 05/15/20 gabapentin 300 mg capsule 300 mg PO QID PRN cap 05/15/20 glipizide 5 mg tablet 5 mg PO BID 05/15/20 insulin glargine 100 unit/mL (3 64 unit SUBCUT ONCE ml 05/15/20 mL) subcutaneous pen lisinopril 2.5 mg tablet 2.5 mg PO DAILY 05/15/20 metformin 1,000 mg tablet 1,000 mg PO BID 05/15/20 simvastatin 20 mg tablet 20 mg PO DAILY 05/15/20 blood sugar diagnostic #10 ea 07/10/20 pen needle, diabetic 32 gauge x #50 ea 07/10/20 Previous Rx's Medication Instructions Recorded ciprofloxacin HCl [Cipro] 500 mg PO BID 14 Days #28 tab 06/26/20 doxycycline monohydrate 100 mg PO BID 14 Days #28 cap 06/26/20 cephalexin 500 mg PO BID 7 Days #14 cap 08/20/20 doxycycline hyclate 100 mg PO BID 7 Days #14 cap 08/20/20 Allergies Allergy/AdvReac Type Severity Reaction Status Date / Time penicillin G Allergy Unknown Unknown Verified 07/10/20 09:50 Review of Systems Review of Systems: Constitutional : pos Fever, pos Chills ENT/Mouth : No sore throat, No Rhinorrhea Eyes: No Eye Pain, No Swelling, No Redness Cardiovascular : No Chest Pain, No SOB Respiratory : No Cough, No Sputum Gastrointestinal : No Nausea, No Vomiting, No Diarrhea, No abdominal Pain Genitourinary : No Dysuria, No Hematuria Musculoskeletal : No joint pain, No Myalgias, No Joint Swelling, pos L calf pain Skin : pos Skin Lesions, no skin rash Neuro : No Weakness, No Numbness, No Headache Psych : No Anxiety, No Depression Heme/Lymph: No Bruising, No Bleeding,No Lymphadenopathy Endocrine : No Polyuria, No Polydipsia All other systems reviewed and are negative [facility] Past Medical History Attestation statement: The following information was validated with the patient. Medical History Diabetes Morbid obesity Nocturnal hypoxemia RIGOBERTO (obstructive sleep apnea) Restrictive lung disease Social History Social History (Updated 10/07/20 @ 15:49 by Renee Strong DO) Patient Tobacco Use Status: Never used Tobacco Use of substances other than those prescribed or required for medical reasons: No Advance Directives: No Advance Directives Information Provided: No Physical Exam Vital Signs: Vital Signs: Last Vital Signs Temp 102.9 F H 10/07/20 14:58 Pulse 116 H 10/07/20 14:58 Resp 26 H 10/07/20 14:58 BP 119/75 10/07/20 14:58 Pulse Ox 94 10/07/20 14:58 Body Mass Index 44.7 Appearance: Alert. Oriented X3. No acute distress. Eyes: Pupils equal, round and reactive to light. ENT: Pharynx normal. Neck: Normal inspection. Neck supple. CVS: Normal heart rate and rhythm. Pulses normal. Respiratory: No respiratory distress. Breath sounds normal. Abdomen: Soft and nontender. Skin: Skin warm and dry. Normal skin color. Normal skin turgor. Extremities: No lower extremity edema. L mild calf ttp, good pulses noted foot is warm to the touch, plantar surface ulcerated area over L 5th MTP with odor and yellow drainage noted, area is wet Neuro: Oriented X 3. No motor deficit. No sensory deficit. MDM - Wound/Laceration MDM Narrative Medical decision making narrative: 54 yo male with hx of DM, PVD sees Nicki has had stent in the past, chronic L foot wound post stepping on a nail in August - follows up with [facility] wound management, they have had him on bactrim for increased drainage and changes to the wound on L foot for the past week, last night he noted fevers and increased purulence at this time is febrile, tachycardic no obvious abscess noted, will need xray for osteo, labs, infl markers, COVID swab, start empiric cefepime and vancomycin, hx of same in the past Discharge Plan Discharge Clinical Impression: Fever, 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 Patient Disposition: Admitted As Inpatient Prescriptions: No Action ciprofloxacin HCl [Cipro] 500 mg tablet 500 mg PO BID 14 Days Qty: 28 RF: 0 doxycycline monohydrate 100 mg capsule 100 mg PO BID 14 Days Qty: 28 RF: 0 doxycycline hyclate 100 mg capsule 100 mg PO BID 7 Days Qty: 14 RF: 0 cephalexin 500 mg capsule 500 mg PO BID 7 Days Qty: 14 RF: 0 (DME) pen needle, diabetic 32 gauge x 5/32 needle See Rx Instructions ea .ROUTE .MEDSUPPLY Qty: 50 RF: 0 (DME) FreeStyle Test Strip See Rx Instructions ea .ROUTE BID Qty: 10 RF: 0 metformin 1,000 mg tablet 1,000 mg PO BID RF: 0 simvastatin 20 mg tablet 20 mg PO DAILY RF: 0 glipizide 5 mg tablet 5 mg PO BID RF: 0 lisinopril 2.5 mg tablet 2.5 mg PO DAILY RF: 0 clopidogrel [Plavix] 75 mg tablet 75 mg PO DAILY RF: 0 gabapentin 300 mg capsule 300 mg PO QID PRNRF: 0 Lantus Solostar U-100 Insulin 100 unit/mL (3 mL) insulin pen 64 unit subcut ONCE RF: 0
[2020-10-07] MEDS: 0.9 % Sodium Chloride 500 ML IV (15:41)
[2020-10-07] MEDS: cefEPime HCl 2 GM in 0.9 % Sodium Chloride 50 ML IV (15:51)
[2020-10-07 15:55] LABS: MANUAL DIFF FLAG NO
[2020-10-07 15:56] LABS: Basophils Percent Auto 0.3 % (0-2); Eosinophils Absolute Auto 0.4 X10*3/uL (0.0-0.4); Eosinophils Percent Auto 4.8 % (0-4); Hematocrit 40.1 % (42-52); Hemoglobin 13.2 g/dl (14.0-18.0); Imm Gran Abs Auto 0.03 X10*3/uL (0.00-0.03); Imm Gran Pct Auto 0.4 % (0.0-0.4); Lymphocytes Absolute Auto 0.7 X10*3/uL (1.2-4.9); Lymphocytes Percent Auto 8.4 % (20-40); Mean Corpuscular HGB Conc 32.9 g/dl (31.0-36.0); Mean Corpuscular Hemoglobin 29.7 pg (27.0-33.0); Mean Corpuscular Volume 90.3 fL (80-98); Mean Platelet Volume 10.1 fL (9.4-12.4); Monocytes Absolute Auto 1.1 X10*3/uL (0.1-1.2); Monocytes Percent Auto 14.7 % (2-11); Neutrophils Absolute Auto 5.6 X10*3/uL (2.0-8.3); Neutrophils Percent Auto 71.4 % (45-73); Platelet Count 207 X10*3/uL (160-400); Red Blood Count 4.44 X10*6/uL (4.60-5.80); Red Cell Distribution Width 13.3 % (11.0-16.0); White Blood Count 7.8 X10*3/uL (4.8-10.8)
[2020-10-07 16:04] LABS: INTERNATIONAL NORM RATIO 1.1 (0.9-1.1); Prothrombin Time 13.4 SEC (10.8-13.0)
[2020-10-07 16:07] LABS: Partial Thromboplastin Time 30.6 SEC (24.1-38.0)
[2020-10-07 16:17] LABS: COVID-19 Test Negative (Negative)
[2020-10-07 16:25] LABS: Alanine Aminotransferase 34 U/L (0-40); Albumin Level 4.3 g/dL (3.5-5.0); Alkaline Phosphatase 81 U/L (39-117); Anion Gap 14 (12-20); Aspartate Amino Transferase 28 U/L (5-37); Bilirubin Direct 0.3 mg/dL (0.0-0.5); Bilirubin Total 0.6 mg/dL (0.0-1.0); Blood Urea Nitrogen 20 mg/dL (9-16); C Reactive Protein 2.46 mg/dL (< or = 0.50); Calcium 9.4 mg/dL (8.4-10.2); Carbon Dioxide 26 mmol/L (22-29); Chloride 100 mmol/L (96-108); Creatinine Clr Calc Pharmacy 82.9; Estimated Glomerular Filt Rate 47; Glucose Random 229 mg/dL (60-115); Magnesium 1.6 mg/dL (1.6-2.6); Potassium 4.8 mmol/L (3.3-5.1); Sodium 135 mmol/L (135-145); Total Protein 7.9 g/dL (6.5-8.0)
--- NOTE | 2020-10-07 16:31 | PC.NURSE ---
pt is here for evaluation and sepsis work up regarding a chronic wound on left outside foot approximately 1/2 dollar in size with yellow drainage noted on home dressing. pt has fever. Tylenol is pending effectiveness.
[2020-10-07 16:44] LABS: Lactic Acid 2.3 mmol/L (0.5-2.0)
[2020-10-07] MEDS: vancomycin HCL 1,000 MG, vancomycin HCL 750 MG in 0.9 % Sodium Chloride 500 ML 267.5 MG IV (16:47)
[2020-10-07] MEDS: ondansetron HCL 4 MG/2 ML VIAL IVPUSH (16:59)
--- NOTE | 2020-10-07 17:00 | PC.NURSE ---
episode vomiting x3 bile and water. vss. dr. wang provided verbal order for iv zofran.
[2020-10-07 17:50] LABS: Reflex Lactate? Lactic Acid Added
--- NOTE | 2020-10-07 18:16 | PC.NURSE ---
md aware of temp and plan to pack with ice.
[2020-10-07] MEDS: Ibuprofen 600 MG TABLET PO (18:40)
[2020-10-07 18:44] LABS: ~Lactic Acid-LAB USE ONLY 1.8 mmol/L (0.5-2.0)
[2020-10-07 21:24] LABS: Erythrocyte Sedimentation Rate 50 MM/HR (0-15)
[2020-10-07] MEDS: 0.9 % Sodium Chloride 1,000 ML 100 ML IVCONT (22:59)
[2020-10-07] MEDS: Heparin Sodium,Porcine 5,000 UNIT/ML VIAL 5000 UNIT SUBCUT (23:00)
[2020-10-07] MEDS: Gabapentin 300 MG CAPSULE PO (23:00)
--- NOTE | 2020-10-07 23:28 | PC.NURSE ---
first call to give report.
--- NOTE | 2020-10-07 23:59 | PC.NURSE ---
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 rn had no questions.
[2020-10-08] VITALS (9 sets, daily range): BP systolic 99–158; BP diastolic 61–82; PULSE 84–109; RESP 18–20; TEMP 37–38.8; O2SAT 91–95; BMI 47.2; BMI 45.1
[2020-10-08] MEDS: vancomycin HCL 500 MG in 0.9 % Sodium Chloride 100 ML 110 MG IV ×3 (01:15→15:16)
[2020-10-08] MEDS: 0.9 % Sodium Chloride Flush 3 ML SYRINGE IVFLUSH ×3 (01:15→15:17)
[2020-10-08] MEDS: Acetaminophen 325 MG TABLET 650 MG PO ×2 (03:27→12:12)
[2020-10-08] MEDS: cefEPime HCl 1 GM in 0.9 % Sodium Chloride 50 ML IV ×3 (03:35→20:43)
--- NOTE | 2020-10-08 06:13 | P.HPHOSP_ITS ---
History of Present Illness Date of Service: 10/07/20 Chief Complaint: non-healing wound This is a 54-year-old male with past medical history of diabetes, RIGOBERTO, nocturnal hypoxemia, restrictive lung disease, who presents to the hospital with a nonhealing left plantar wound. Patient reports that he has been dealing with this wound for 6 weeks, currently following wound care clinic at [facility], reports that he has been on antibiotics twice at this time and currently on Bactrim supposed to be completing it on Friday but he developed a fever at home and decided to come to the hospital. His fever at home was 99.5, he is also having chills, no significant pain in the foot but has constant drainage and malodorous discharge. Patient reports that he was feeling nauseous today had few episodes of vomiting, denies any abdominal pain diarrhea constipation, no urinary symptoms and no lower extremity edema. To the ED patient hemodynamically stable with vital significant for a temp of 102.9?, heart rate of 116, respiratory rate of 26, blood pressure 119/75, satting 94% on room air Labs are significant for WBC count of 7.8, hemoglobin of 13.2, a ESR 50, CRP of 2.46, BUN of 20, creatinine of 1.5 with a baseline around 1.2-1.3 Venous duplex shows no DVT demonstrated in the left lower extremity, Foot x-ray showed healed fractures and degenerative changes without fracture or overt evidence of osteomyelitis Patient will be admitted for further management Review of Systems Review of Systems: Yes all other systems are reviewed and are negative [facility] [place] Medical History Diabetes Morbid obesity Nocturnal hypoxemia RIGOBERTO (obstructive sleep apnea) Restrictive lung disease Social History Household Members: Family Do you presently have visiting nurse or other home services: No Patient Tobacco Use Status: Never used Tobacco Smoked in Last 30 Days: No Patient Interested in Nicotine Replacement: No Patient Given Instructions on How to Stop Smoking: No Second Hand Smoke Exposure: No Use of substances other than those prescribed or required for medical reasons: No Have you been hit, kicked, punched, or otherwise hurt by someone within the past year? If so, by whom?: No Do you feel safe in your current relationship?: No Is there a partner from a previous relationship who is making you feel unsafe now?: No Are you made to feel afraid or neglected: No [employer] Practices: roman catholic Cultural Healthcare Practices: would accept blood transfusion Advance Directives: No Advance Directives Information Provided: No Do you have thoughts of harming others: None Do you have a plan to hurt others: No Plan Meds Allergies Allergy/AdvReac Type Severity Reaction Status Date / Time penicillin G Allergy Unknown Unknown Verified 07/10/20 09:50 Active Medications: Current Medications Generic Name Dose Route Start Last Admin Trade Name Freq PRN Reason Stop Dose Admin Acetaminophen 650 mg 10/07/20 21:58 10/08/20 03:27 Acetaminophen 325 Mg Tablet PO 650 mg Q6H PRN Administration Pain, Mild (Pain Scale 1-3) Atorvastatin Calcium 20 mg 10/08/20 21:00 Atorvastatin Calcium 20 Mg Tablet PO BEDTIME [facility] Clopidogrel Bisulfate 75 mg 10/08/20 09:00 Clopidogrel Bisulfate 75 Mg Tablet PO DAILY MICHAEL Docusate Sodium 100 mg 10/07/20 21:58 Docusate Sodium 100 Mg Capsule PO DAILY PRN Constipation Gabapentin 300 mg 10/07/20 22:00 10/07/20 23:00 Gabapentin 300 Mg Capsule PO 300 mg TID MICHAEL Administration Heparin Sodium (Porcine) 5,000 unit 10/07/20 22:00 10/07/20 23:00 Heparin Sodium,Porcine 5,000 Unit/Ml Vial SUBCUT 5,000 unit Q12H MICHAEL Administration Sodium Chloride 1,000 mls @ 100 mls/hr 10/07/20 22:00 10/07/20 22:59 Ns IVCONT 100 mls/hr .Q10H MICHAEL Administration Vancomycin HCl 500 mg/ Sodium 110 mls @ 110 mls/hr 10/08/20 00:00 10/08/20 02:19 Chloride IV Infused Q8H [facility] Infusion Insulin Glargine 80 unit 10/08/20 09:00 Insulin Glargine,Hum.Rec.Anlog 100 Unit/Ml 10 Ml Vial SUBCUT DAILY [facility] Insulin Human Lispro 0 unit 10/08/20 07:30 Insulin Lispro 100 Unit/Ml 3 Ml Vial SUBCUT QIDACHS [facility] Protocol Lisinopril 2.5 mg 10/08/20 09:00 Lisinopril 2.5 Mg Tablet PO DAILY [facility] Protocol Ondansetron HCl 4 mg 10/07/20 21:58 Ondansetron Hcl 4 Mg/2 Ml Vial IVPUSH Q8H PRN Nausea and Vomiting Oxycodone HCl 5 mg 10/07/20 21:58 Oxycodone Hcl Immed Release 5 Mg Tablet PO Q6H PRN Pain, Severe (Pain Scale 7-10) Pharmacy Consult 1 each 10/07/20 21:58 Consult Rx Vancomycin Dosing MISCELLANE DAILY PRN Consult order Sodium Chloride 3 ml 10/08/20 00:00 10/08/20 01:15 0.9 % Sodium Chloride Flush 3 Ml Syringe IVFLUSH 3 ml [facility] Administration Home Medications Medication Instructions Recorded Confirmed Last Taken Type blood sugar diagnostic [FreeStyle 10/07/20 10/07/20 1 Day Ago History Test] ~10/06/20 clopidogrel 1 tab PO DAILY 10/07/20 10/07/20 1 Day Ago History ~10/06/20 gabapentin 1 cap PO TID 10/07/20 10/07/20 1 Day Ago History ~10/06/20 glipizide 1 tab PO BID 10/07/20 10/07/20 1 Day Ago History ~10/06/20 insulin glargine [Lantus Solostar 80 unit SUBCUT DAILY 10/07/20 10/07/20 1 Day Ago History U-100 Insulin] ~10/06/20 lisinopril 1 tab PO DAILY 10/07/20 10/07/20 1 Day Ago History ~10/06/20 metformin 1 tab PO BID 10/07/20 10/07/20 1 Day Ago History ~10/06/20 simvastatin 40 mg PO QPM 10/07/20 10/07/20 1 Day Ago History ~10/06/20 sulfamethoxazole-trimethoprim 1 tab PO BID 10/07/20 10/07/20 1 Day Ago History ~10/06/20 Physical Exam Vital Signs and Narrative: Vital Signs: Last Vital Signs Temp 99.8 F 10/08/20 04:47 Pulse 109 H 10/08/20 03:17 Resp 20 10/08/20 03:17 BP 158/78 H 10/08/20 03:17 Pulse Ox 94 10/08/20 03:17 Body Mass Index 45.1 Const: General: cooperative and no acute distress Orientation/consciousness: patient oriented x3 Eyes: General: appearance normal, both eyes and all related structures Pupils: Equal, round and reactive pupils present Resp: Effort & Inspection: normal respiratory effort and able to speak in complete sentences Cardio: Rate: regular rate Rhythm: regular rhythm GI: Palpation (GI): Soft to palpation Auscultation: normal bowel sounds Skin: General skin exam: no rashes or lesions noted Neuro: General: patient oriented x3 Cranial nerves: Yes Equal, round and reactive pupils present Cognition (Neuro): normal cognition Extrem: Other: Left plantar aspect of the foot with about 5 cm open wound, clear drainage, malodorous discharge General: Yes no pedal edema Results Labs CBC and Chem 7: 10/07/20 15:38 10/07/20 15:38 Labs: Laboratory Results - last 24 hr 10/07/20 10/07/20 10/07/20 15:38 15:38 15:38 MCV 90.3 MCH 29.7 MCHC 32.9 RDW 13.3 Plt Count 207 MPV 10.1 Immature Gran % (Auto) 0.4 Neut % (Auto) 71.4 Lymph % (Auto) 8.4 L Mills % (Auto) 14.7 H Eos % (Auto) 4.8 H Baso % (Auto) 0.3 Lymph # (Auto) 0.7 L Mills # (Auto) 1.1 Eos # (Auto) 0.4 Baso # (Auto) 0.0 Abs Immat Gran (auto) 0.03 Absolute Neuts (auto) 5.6 Absolute Nucleated RBC 0.000 Nucleated RBC % (auto) 0.0 ESR PT 13.4 H INR 1.1 APTT 30.6 Anion Gap 14 Estim Creat Clear Calc 82.9 Estimated GFR 47 Random Glucose 229 H Lactic Acid Lactic Acid Fup @ 2Hr Calcium 9.4 Magnesium 1.6 Total Bilirubin 0.6 Direct Bilirubin 0.3 AST 28 ALT 34 Alkaline Phosphatase 81 C-Reactive Protein 2.46 H Total Protein 7.9 Albumin 4.3 COVID-19 (VIVEK) COVID-19 Clin Com 10/07/20 10/07/20 10/07/20 15:38 15:39 15:39 MCV MCH MCHC RDW Plt Count MPV Immature Gran % (Auto) Neut % (Auto) Lymph % (Auto) Mills % (Auto) Eos % (Auto) Baso % (Auto) Lymph # (Auto) Mills # (Auto) Eos # (Auto) Baso # (Auto) Abs Immat Gran (auto) Absolute Neuts (auto) Absolute Nucleated RBC Nucleated RBC % (auto) ESR 50 H PT INR APTT Anion Gap Estim Creat Clear Calc Estimated GFR Random Glucose Lactic Acid 2.3 H* Lactic Acid Fup @ 2Hr Calcium Magnesium Total Bilirubin Direct Bilirubin AST ALT Alkaline Phosphatase C-Reactive Protein Total Protein Albumin COVID-19 (VIVEK) Negative COVID-19 Clin Com See Note 10/07/20 18:07 MCV MCH MCHC RDW Plt Count MPV Immature Gran % (Auto) Neut % (Auto) Lymph % (Auto) Mills % (Auto) Eos % (Auto) Baso % (Auto) Lymph # (Auto) Mills # (Auto) Eos # (Auto) Baso # (Auto) Abs Immat Gran (auto) Absolute Neuts (auto) Absolute Nucleated RBC Nucleated RBC % (auto) ESR PT INR APTT Anion Gap Estim Creat Clear Calc Estimated GFR Random Glucose Lactic Acid Lactic Acid Fup @ 2Hr 1.8 Calcium Magnesium Total Bilirubin Direct Bilirubin AST ALT Alkaline Phosphatase C-Reactive Protein Total Protein Albumin COVID-19 (VIVEK) COVID-19 Clin Com Imaging Radiologist's Impressions: Impressions Foot X-Ray 10/07/20 15:06 IMPRESSION: Old healed fractures and degenerative changes without fracture or overt evidence for osteomyelitis. Venous Duplex 10/07/20 15:21 IMPRESSION: No DVT demonstrated in the left lower extremity. Assessment and Plan (1) Sepsis: Status: Acute (2) Non-healing wound: Status: Acute (3) BIB (acute kidney injury): Status: Acute This is a 54-year-old male with past medical history of diabetes who presents to the hospital with complaints of nonhealing left plantar wound # sepsis - secondary to a diabetic foot wound - has fever, tachypnea, tachycardia with no leukocytosis - lactic acid of 2.3, elevated ESR and CRP - will start patient on broad-spectrum antibiotics including vanc and cefepime given history of diabetes - follow culture - IV fluids # nonhealing wound - cannot rule out osteomyelitis - elevated ESR and CRP - failed outpatient therapy x2 - MRI of the foot - surgical and infectious disease consult # BIB - possibly secondary to acute infection versus back to - discontinue After - IV fluids - follow BMP # diabetes - continue home meds - add low-dose sliding scale insulin - diabetic diet DVT prophylaxis: heparin subq Quality Stroke Does the patient have a stroke diagnosis?: No VTE Prior VTE?: No VTE Risk Level:: Medical - moderate - high VTE Device Contraindication: Treatment Not Indicated VTE Drug Contraindication: N/A - Med Ordered
[2020-10-08 06:27] LABS: MANUAL DIFF FLAG NO
[2020-10-08 06:31] LABS: Basophils Percent Auto 0.1 % (0-2); Eosinophils Absolute Auto 0.3 X10*3/uL (0.0-0.4); Eosinophils Percent Auto 3.5 % (0-4); Hematocrit 36.4 % (42-52); Imm Gran Abs Auto 0.03 X10*3/uL (0.00-0.03); Imm Gran Pct Auto 0.4 % (0.0-0.4); Lymphocytes Absolute Auto 0.7 X10*3/uL (1.2-4.9); Lymphocytes Percent Auto 9.3 % (20-40); Mean Corpuscular Hemoglobin 29.9 pg (27.0-33.0); Mean Corpuscular Volume 90.8 fL (80-98); Mean Platelet Volume 9.9 fL (9.4-12.4); Monocytes Absolute Auto 1.2 X10*3/uL (0.1-1.2); Neutrophils Percent Auto 69.7 % (45-73); Platelet Count 178 X10*3/uL (160-400); Red Blood Count 4.01 X10*6/uL (4.60-5.80); Red Cell Distribution Width 13.7 % (11.0-16.0); White Blood Count 7.2 X10*3/uL (4.8-10.8)
[2020-10-08] MEDS: Lactated Ringers 1,000 ML 100 ML IVCONT ×3 (06:50→17:43)
[2020-10-08 07:06] LABS: Anion Gap 14 (12-20); Blood Urea Nitrogen 22 mg/dL (9-16); Calcium 8.3 mg/dL (8.4-10.2); Carbon Dioxide 22 mmol/L (22-29); Chloride 102 mmol/L (96-108); Creatinine Clr Calc Pharmacy 92.3; Estimated Glomerular Filt Rate 53; Glucose Random 327 mg/dL (60-115); Sodium 133 mmol/L (135-145)
[2020-10-08 07:35] LABS: Glucose, Whole Blood 293 mg/dL (60-115)
[2020-10-08] MEDS: Heparin Sodium,Porcine 5,000 UNIT/ML VIAL 5000 UNIT SUBCUT ×2 (08:11→20:30)
[2020-10-08] MEDS: Gabapentin 300 MG CAPSULE PO ×3 (08:11→20:26)
[2020-10-08] MEDS: lisinopriL 2.5 MG TABLET PO (08:11)
[2020-10-08] MEDS: Clopidogrel Bisulfate 75 MG TABLET PO (08:11)
[2020-10-08] MEDS: Insulin Glargine,Hum.rec.anlog 100 UNIT/ML 10 ML VIAL 80 UNIT SUBCUT (08:12)
[2020-10-08] MEDS: Insulin Lispro 100 UNIT/ML 3 ML VIAL SUBCUT ×4 (08:12→20:29)
[2020-10-08] MEDS: metroNIDAZOLE/NS 500 MG/100 ML PIGGYBACK 100 MG IV ×2 (09:24→16:40)
--- NOTE | 2020-10-08 09:59 | P.CONGS_ITS ---
History of Present Illness Consult details Consult date: 10/08/20 Requesting physician: Rosita Gillespie Narrative: Mitchel Augustin is a 54-year-old male patient with history of diabetes, obstructive sleep apnea, and restrictive lung disease presenting with a heel of a nonhealing wound of the left foot and associated fever while at home. The injury to the foot occurred approximately 6 weeks ago after stepping on a nail. He has been treated and debrided by his plsql developer and by the [facility]. He has been treated with antibiotics in the past including most recent dose of Bactrim. He feels the wound has remained fairly stable with some bloody and yellowish discharge. He denies significant pain in the foot or redness extending up the foot. He did have fever and chills while at home there for presented to the emergency department. Previous workup in 2019 for infection of the left 5th toe revealed arterial occlusion in the left leg. He subsequently underwent a stent placement by Dr. Caceres. Subsequent noninvasive vascular studies on 01/25/2020 revealed no evidence of any hemodynamically significant lower extremity arterial disease by pressure, waveform or duplex Doppler criteria at rest. Foot x-rays obtained in the emergency department revealed no evidence of osteomyelitis. Laboratories revealed WBC of 7.8, ESR 50, CRP of 2.46, and venous Doppler negative for DVT. The patient is scheduled for a left foot MRI possibly today. Review of Systems Review of Systems: Yes all other systems are reviewed and are negative Constitutional: Constitutional: Reports chills, Reports fever(s) and Reports snoring Cardiovascular: Cardiovascular: Denies chest pain, Denies edema, Denies irregular heart rhythm and Reports dyspnea on exertion Respiratory: Respiratory: Reports dyspnea on exertion and Reports snoring Gastrointestinal: Gastrointestinal: Reports no additional gastrointestinal complaints Musculoskeletal: Musculoskeletal: Reports as per HPI Hematologic/Lymphatic: Hematologic/Lymphatic: Denies lymphadenopathy PMFSH Past Medical History Medical History Diabetes Morbid obesity Nocturnal hypoxemia RIGOBERTO (obstructive sleep apnea) Restrictive lung disease Social History Social History Household Members: Family Do you presently have visiting nurse or other home services: No Patient Tobacco Use Status: Never used Tobacco Smoked in Last 30 Days: No Patient Interested in Nicotine Replacement: No Patient Given Instructions on How to Stop Smoking: No Second Hand Smoke Exposure: No Use of substances other than those prescribed or required for medical reasons: No Currently Displaying Signs/Symptoms of Drug Intoxication Withdrawal: No Have you been hit, kicked, punched, or otherwise hurt by someone within the past year? If so, by whom?: No Do you feel safe in your current relationship?: No Is there a partner from a previous relationship who is making you feel unsafe now?: No Are you made to feel afraid or neglected: No Muslim Healthcare Practices: nondenominational Cultural Healthcare Practices: would accept blood transfusion Advance Directives: No Advance Directives Information Provided: No Do you have thoughts of harming others: None Do you have a plan to hurt others: No Plan Meds Allergies Allergy/AdvReac Type Severity Reaction Status Date / Time penicillin G Allergy Unknown Unknown Verified 07/10/20 09:50 Active Medications: Current Medications Generic Name Dose Route Start Last Admin Trade Name Freq PRN Reason Stop Dose Admin Acetaminophen 650 mg 10/07/20 21:58 10/08/20 03:27 Acetaminophen 325 Mg Tablet PO 650 mg Q6H PRN Administration Pain, Mild (Pain Scale 1-3) Atorvastatin Calcium 20 mg 10/08/20 21:00 Atorvastatin Calcium 20 Mg Tablet PO BEDTIME MICHAEL Clopidogrel Bisulfate 75 mg 10/08/20 09:00 10/08/20 08:11 Clopidogrel Bisulfate 75 Mg Tablet PO 75 mg DAILY MICHAEL Administration Docusate Sodium 100 mg 10/07/20 21:58 Docusate Sodium 100 Mg Capsule PO DAILY PRN Constipation Gabapentin 300 mg 10/07/20 22:00 10/08/20 08:11 Gabapentin 300 Mg Capsule PO 300 mg TID MICHAEL Administration Heparin Sodium (Porcine) 5,000 unit 10/07/20 22:00 10/08/20 08:11 Heparin Sodium,Porcine 5,000 Unit/Ml Vial SUBCUT 5,000 unit Q12H MICHAEL Administration Sodium Chloride 1,000 mls @ 100 mls/hr 10/07/20 22:00 10/08/20 09:01 Ns IVCONT Infused .Q10H MICHAEL Infusion Vancomycin HCl 500 mg/ Sodium 110 mls @ 110 mls/hr 10/08/20 00:00 10/08/20 09:15 Chloride IV Infused Q8H MICHAEL Infusion Lactated Ringer's 1,000 mls @ 100 mls/hr 10/08/20 06:30 10/08/20 08:13 Lr IVCONT 100 mls/hr .Q10H MICHAEL Administration Cefepime HCl 1 gm/ Sodium 50 mls @ 100 mls/hr 10/08/20 12:00 Chloride IV Q8H MICHAEL Metronidazole 500 mg in 100 mls @ 100 mls/hr 10/08/20 09:00 10/08/20 09:24 Flagyl IV 100 mls/hr Q8H MICHAEL Administration Insulin Glargine 80 unit 10/08/20 09:00 10/08/20 08:12 Insulin Glargine,Hum.Rec.Anlog 100 Unit/Ml 10 Ml Vial SUBCUT 80 unit DAILY [facility] Administration Insulin Human Lispro 0 unit 10/08/20 07:30 10/08/20 08:12 Insulin Lispro 100 Unit/Ml 3 Ml Vial SUBCUT 6 unit QIDACHS [facility] Administration Protocol Lisinopril 2.5 mg 10/08/20 09:00 10/08/20 08:11 Lisinopril 2.5 Mg Tablet PO 2.5 mg DAILY [facility] Administration Protocol Ondansetron HCl 4 mg 10/07/20 21:58 Ondansetron Hcl 4 Mg/2 Ml Vial IVPUSH Q8H PRN Nausea and Vomiting Oxycodone HCl 5 mg 10/07/20 21:58 Oxycodone Hcl Immed Release 5 Mg Tablet PO Q6H PRN Pain, Severe (Pain Scale 7-10) Pharmacy Consult 1 each 10/07/20 21:58 Consult Rx Vancomycin Dosing MISCELLANE DAILY PRN Consult order Sodium Chloride 3 ml 10/08/20 00:00 10/08/20 08:13 0.9 % Sodium Chloride Flush 3 Ml Syringe IVFLUSH 3 ml QSHIFT [facility] Administration Home Medications Medication Instructions Recorded Confirmed Last Taken Type blood sugar diagnostic [FreeStyle 10/07/20 10/07/20 1 Day Ago History Test] ~10/06/20 clopidogrel 1 tab PO DAILY 10/07/20 10/07/20 1 Day Ago History ~10/06/20 gabapentin 1 cap PO TID 10/07/20 10/07/20 1 Day Ago History ~10/06/20 glipizide 1 tab PO BID 10/07/20 10/07/20 1 Day Ago History ~10/06/20 insulin glargine [Lantus Solostar 80 unit SUBCUT DAILY 10/07/20 10/07/20 1 Day Ago History U-100 Insulin] ~10/06/20 lisinopril 1 tab PO DAILY 10/07/20 10/07/20 1 Day Ago History ~10/06/20 metformin 1 tab PO BID 10/07/20 10/07/20 1 Day Ago History ~10/06/20 simvastatin 40 mg PO QPM 10/07/20 10/07/20 1 Day Ago History ~10/06/20 sulfamethoxazole-trimethoprim 1 tab PO BID 10/07/20 10/07/20 1 Day Ago History ~10/06/20 Physical Exam Vital Signs: Vital Signs: Last Vital Signs Temp 98.7 F 10/08/20 07:55 Pulse 98 10/08/20 08:11 Resp 20 10/08/20 07:55 BP 118/70 10/08/20 08:11 Pulse Ox 94 10/08/20 07:55 Body Mass Index 45.1 Const: General: cooperative, comfortable, no acute distress, alert and awake Nutritional Appearance: obese Orientation/consciousness: patient oriented x3 Limitations: no limitations HENMT: Head: Yes normocephalic and Yes atraumatic Ears: hearing grossly normal bilaterally Resp: Effort & Inspection: normal respiratory effort Cardio: Jugular venous distension: no JVD Rate: regular rate Rhythm: regular rhythm Skin: General skin exam: no rashes or lesions noted Neuro: General: patient oriented x3 Extrem: Other: Ulceration on the plantar surface of the left foot located over the 4th and 5th metatarsal measuring approximately 2.5 cm in diameter. There is a small amount of callus surrounding the wound but no necrotic tissue. The base of the wound is granulating with a central area of yellow discharge. No exposed metatarsal is identified. (See photo below) Results Labs Result diagrams: 10/08/20 05:36 10/08/20 05:36 Labs: Abnormal lab results 10/07/20 10/07/20 10/07/20 Range/Units 15:38 15:38 15:38 RBC 4.44 L (4.60-5.80) X10*6/uL Hgb 13.2 L (14.0-18.0) g/dl Hct 40.1 L (42-52) % Lymph % (Auto) 8.4 L (20-40) % [place] % (Auto) 14.7 H (2-11) % Eos % (Auto) 4.8 H (0-4) % Lymph # (Auto) 0.7 L (1.2-4.9) X10*3/uL ESR (0-15) MM/HR PT 13.4 H (10.8-13.0) SEC Sodium (135-145) mmol/L BUN 20 H (9-16) mg/dL Creatinine 1.55 H (0.5-1.4) mg/dL POC Glucose (60-115) mg/dL Random Glucose 229 H (60-115) mg/dL Lactic Acid (0.5-2.0) mmol/L Calcium (8.4-10.2) mg/dL C-Reactive Protein 2.46 H (< or = 0.50) mg/dL 10/07/20 10/07/20 10/08/20 Range/Units 15:39 15:39 05:36 RBC 4.01 L (4.60-5.80) X10*6/uL Hgb 12.0 L (14.0-18.0) g/dl Hct 36.4 L (42-52) % Lymph % (Auto) 9.3 L (20-40) % [place] % (Auto) 17.0 H (2-11) % Eos % (Auto) (0-4) % Lymph # (Auto) 0.7 L (1.2-4.9) X10*3/uL ESR 50 H (0-15) MM/HR PT (10.8-13.0) SEC Sodium (135-145) mmol/L BUN (9-16) mg/dL Creatinine (0.5-1.4) mg/dL POC Glucose (60-115) mg/dL Random Glucose (60-115) mg/dL Lactic Acid 2.3 H* (0.5-2.0) mmol/L Calcium (8.4-10.2) mg/dL C-Reactive Protein (< or = 0.50) mg/dL 10/08/20 10/08/20 Range/Units 05:36 07:13 RBC (4.60-5.80) X10*6/uL Hgb (14.0-18.0) g/dl Hct (42-52) % Lymph % (Auto) (20-40) % [place] % (Auto) (2-11) % Eos % (Auto) (0-4) % Lymph # (Auto) (1.2-4.9) X10*3/uL ESR (0-15) MM/HR PT (10.8-13.0) SEC Sodium 133 L (135-145) mmol/L BUN 22 H (9-16) mg/dL Creatinine (0.5-1.4) mg/dL POC Glucose 293 H (60-115) mg/dL Random Glucose 327 H D (60-115) mg/dL Lactic Acid (0.5-2.0) mmol/L Calcium 8.3 L D (8.4-10.2) mg/dL C-Reactive Protein (< or = 0.50) mg/dL Short CBC 10/07/20 10/08/20 Range/Units 15:38 05:36 WBC 7.8 7.2 (4.8-10.8) X10*3/uL Hgb 13.2 L 12.0 L (14.0-18.0) g/dl Hct 40.1 L 36.4 L (42-52) % Plt Count 207 178 (160-400) X10*3/uL BMP 10/07/20 10/08/20 15:38 05:36 Sodium 135 133 L Potassium 4.8 5.0 Chloride 100 102 Carbon Dioxide 26 22 BUN 20 H 22 H Creatinine 1.55 H 1.40 Calcium 9.4 8.3 L D Liver Function 10/07/20 Range/Units 15:38 Total Bilirubin 0.6 (0.0-1.0) mg/dL Direct Bilirubin 0.3 (0.0-0.5) mg/dL AST 28 (5-37) U/L ALT 34 (0-40) U/L Alkaline Phosphatase 81 (39-117) U/L Albumin 4.3 (3.5-5.0) g/dL All other labs normal. Assessment and Plan (1) 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: Qualifiers: Diabetes mellitus type: type 1 Diabetic foot ulcer location: other Laterality: left Qualified Code(s): E10.621 - Type 1 diabetes mellitus with foot ulcer; L97.522 - Non-pressure chronic ulcer of other part of left foot with fat layer exposed Status: Acute 54-year-old male patient with history of diabetes and peripheral vascular disease, status post left 5th toe amputation now with a nonhealing wound of the plantar surface, possibly due to osteomyelitis. Initial x-rays are negative for osteomyelitis and an MRI is pending. No surgical debridement is required at this time. Wounds were redressed with silver calcium alginate and dry sterile dressings. If osteomyelitis is found on MRI, prolonged IV antibiotics may be required. Continue local wound care with silver calcium alginate and dry sterile dressings daily. Follow-up with wound care upon discharge. Procedures Date of Service Date of Service: 10/08/20
--- NOTE | 2020-10-08 11:08 | MHC.CM.PN ---
met with pt who stated he goes to [facility] he does not anticipate needing additional services and he will his own transportation home
[2020-10-08 11:32] LABS: Glucose, Whole Blood 330 mg/dL (60-115)
[2020-10-08 15:23] LABS: Glucose, Whole Blood 251 mg/dL (60-115)
--- NOTE | 2020-10-08 15:24 | HO.PM.IMPN ---
Subjective Subjective Date of Service: 10/08/20 Interval History: No pain of foot but he is neuropathic No fever/chills Physical Exam Vital Signs: Vital Signs: Last Vital Signs Temp 99.6 F 10/08/20 15:18 Pulse 89 10/08/20 15:18 Resp 18 10/08/20 15:18 BP 99/61 10/08/20 15:18 Pulse Ox 92 10/08/20 15:18 Body Mass Index 45.1 Gen: in no acute distress HEENT: sclera anicteric, moist mucus membranes Neck: supple Lungs: clear to auscultation bilaterally Heart: regular rate and rhythm, no murmurs Abd: soft, obese non-tender, non-distended Ext: no edema Skin: L plantar ulcer with yellow discharge. L 5th toe surgically absent Neuro: alert and oriented x3, dense neuropathy of feet Psych: appropriate affect Objective Data Current Medications Generic Name Dose Route Start Last Admin Trade Name Freq PRN Reason Stop Dose Admin Acetaminophen 650 mg 10/07/20 21:58 10/08/20 12:12 Acetaminophen 325 Mg Tablet PO 650 mg Q6H PRN Administration Pain, Mild (Pain Scale 1-3) Atorvastatin Calcium 20 mg 10/08/20 21:00 Atorvastatin Calcium 20 Mg Tablet PO BEDTIME MICHAEL Clopidogrel Bisulfate 75 mg 10/08/20 09:00 10/08/20 08:11 Clopidogrel Bisulfate 75 Mg Tablet PO 75 mg DAILY MICHAEL Administration Docusate Sodium 100 mg 10/07/20 21:58 Docusate Sodium 100 Mg Capsule PO DAILY PRN Constipation Gabapentin 300 mg 10/07/20 22:00 10/08/20 15:16 Gabapentin 300 Mg Capsule PO 300 mg TID MICHAEL Administration Heparin Sodium (Porcine) 5,000 unit 10/07/20 22:00 10/08/20 08:11 Heparin Sodium,Porcine 5,000 Unit/Ml Vial SUBCUT 5,000 unit Q12H MICHAEL Administration Sodium Chloride 1,000 mls @ 100 mls/hr 10/07/20 22:00 10/08/20 09:01 Ns IVCONT Infused .Q10H MICHAEL Infusion Vancomycin HCl 500 mg/ Sodium 110 mls @ 110 mls/hr 10/08/20 00:00 10/08/20 15:16 Chloride IV 110 mls/hr Q8H MICHAEL Administration Lactated Ringer's 1,000 mls @ 100 mls/hr 10/08/20 06:30 10/08/20 08:13 Lr IVCONT 100 mls/hr .Q10H [facility] Administration Cefepime HCl 1 gm/ Sodium 50 mls @ 100 mls/hr 10/08/20 12:00 10/08/20 12:21 Chloride IV Infused Q8H MICHAEL Infusion Metronidazole 500 mg in 100 mls @ 100 mls/hr 10/08/20 09:00 10/08/20 10:24 Flagyl IV Infused Q8H [facility] Infusion Insulin Glargine 80 unit 10/08/20 09:00 10/08/20 08:12 Insulin Glargine,Hum.Rec.Anlog 100 Unit/Ml 10 Ml Vial SUBCUT 80 unit DAILY [facility] Administration Insulin Human Lispro 0 unit 10/08/20 07:30 10/08/20 11:38 Insulin Lispro 100 Unit/Ml 3 Ml Vial SUBCUT 8 unit QIDACHS [facility] Administration Protocol Lisinopril 2.5 mg 10/08/20 09:00 10/08/20 08:11 Lisinopril 2.5 Mg Tablet PO 2.5 mg DAILY [facility] Administration Protocol Ondansetron HCl 4 mg 10/07/20 21:58 Ondansetron Hcl 4 Mg/2 Ml Vial IVPUSH Q8H PRN Nausea and Vomiting Oxycodone HCl 5 mg 10/07/20 21:58 Oxycodone Hcl Immed Release 5 Mg Tablet PO Q6H PRN Pain, Severe (Pain Scale 7-10) Pharmacy Consult 1 each 10/07/20 21:58 Consult Rx Vancomycin Dosing MISCELLANE DAILY PRN Consult order Sodium Chloride 3 ml 10/08/20 00:00 10/08/20 15:17 0.9 % Sodium Chloride Flush 3 Ml Syringe IVFLUSH 3 ml QSHIFT [facility] Administration Labs CBC & Chem 7: 10/08/20 05:36 10/08/20 05:36 Labs: Laboratory Results - last 24 hr 10/07/20 10/07/20 10/07/20 15:38 15:38 15:38 WBC 7.8 RBC 4.44 L Hgb 13.2 L Hct 40.1 L MCV 90.3 MCH 29.7 MCHC 32.9 RDW 13.3 Plt Count 207 MPV 10.1 Immature Gran % (Auto) 0.4 Neut % (Auto) 71.4 Lymph % (Auto) 8.4 L [place] % (Auto) 14.7 H Eos % (Auto) 4.8 H Baso % (Auto) 0.3 Lymph # (Auto) 0.7 L [place] # (Auto) 1.1 Eos # (Auto) 0.4 Baso # (Auto) 0.0 Abs Immat Gran (auto) 0.03 Absolute Neuts (auto) 5.6 Absolute Nucleated RBC 0.000 Nucleated RBC % (auto) 0.0 ESR PT 13.4 H INR 1.1 APTT 30.6 Sodium 135 Potassium 4.8 Chloride 100 Carbon Dioxide 26 Anion Gap 14 BUN 20 H Creatinine 1.55 H Estim Creat Clear Calc 82.9 Estimated GFR 47 POC Glucose Random Glucose 229 H Lactic Acid Lactic Acid Fup @ 2Hr Calcium 9.4 Magnesium 1.6 Total Bilirubin 0.6 Direct Bilirubin 0.3 AST 28 ALT 34 Alkaline Phosphatase 81 C-Reactive Protein 2.46 H Total Protein 7.9 Albumin 4.3 COVID-19 (VIVEK) COVID-19 Brigade 10/07/20 10/07/20 10/07/20 15:38 15:39 15:39 WBC RBC Hgb Hct MCV MCH MCHC RDW Plt Count MPV Immature Gran % (Auto) Neut % (Auto) Lymph % (Auto) [place] % (Auto) Eos % (Auto) Baso % (Auto) Lymph # (Auto) [place] # (Auto) Eos # (Auto) Baso # (Auto) Abs Immat Gran (auto) Absolute Neuts (auto) Absolute Nucleated RBC Nucleated RBC % (auto) ESR 50 H PT INR APTT Sodium Potassium Chloride Carbon Dioxide Anion Gap BUN Creatinine Estim Creat Clear Calc Estimated GFR POC Glucose Random Glucose Lactic Acid 2.3 H* Lactic Acid Fup @ 2Hr Calcium Magnesium Total Bilirubin Direct Bilirubin AST ALT Alkaline Phosphatase C-Reactive Protein Total Protein Albumin COVID-19 (VIVEK) Negative COVID-19 Brigade See Note 10/07/20 10/08/20 10/08/20 18:07 05:36 05:36 WBC 7.2 RBC 4.01 L Hgb 12.0 L Hct 36.4 L MCV 90.8 MCH 29.9 MCHC 33.0 RDW 13.7 Plt Count 178 MPV 9.9 Immature Gran % (Auto) 0.4 Neut % (Auto) 69.7 Lymph % (Auto) 9.3 L [place] % (Auto) 17.0 H Eos % (Auto) 3.5 Baso % (Auto) 0.1 Lymph # (Auto) 0.7 L [place] # (Auto) 1.2 Eos # (Auto) 0.3 Baso # (Auto) 0.0 Abs Immat Gran (auto) 0.03 Absolute Neuts (auto) 5.0 Absolute Nucleated RBC 0.000 Nucleated RBC % (auto) 0.0 ESR PT INR APTT Sodium 133 L Potassium 5.0 Chloride 102 Carbon Dioxide 22 Anion Gap 14 BUN 22 H Creatinine 1.40 Estim Creat Clear Calc 92.3 Estimated GFR 53 POC Glucose Random Glucose 327 H D Lactic Acid Lactic Acid Fup @ 2Hr 1.8 Calcium 8.3 L D Magnesium Total Bilirubin Direct Bilirubin AST ALT Alkaline Phosphatase C-Reactive Protein Total Protein Albumin COVID-19 (VIVEK) COVID-19 Brigade 10/08/20 10/08/20 10/08/20 07:13 11:04 15:15 WBC RBC Hgb Hct MCV MCH MCHC RDW Plt Count MPV Immature Gran % (Auto) Neut % (Auto) Lymph % (Auto) [place] % (Auto) Eos % (Auto) Baso % (Auto) Lymph # (Auto) [place] # (Auto) Eos # (Auto) Baso # (Auto) Abs Immat Gran (auto) Absolute Neuts (auto) Absolute Nucleated RBC Nucleated RBC % (auto) ESR PT INR APTT Sodium Potassium Chloride Carbon Dioxide Anion Gap BUN Creatinine Estim Creat Clear Calc Estimated GFR POC Glucose 293 H 330 H 251 H Random Glucose Lactic Acid Lactic Acid Fup @ 2Hr Calcium Magnesium Total Bilirubin Direct Bilirubin AST ALT Alkaline Phosphatase C-Reactive Protein Total Protein Albumin COVID-19 (VIVEK) COVID-19 Brigade Quality Stroke Does the patient have a stroke diagnosis?: No VTE Prior VTE?: No VTE Risk Level:: Medical - moderate - high VTE Device Contraindication: Treatment Not Indicated VTE Drug Contraindication: N/A - Med Ordered Assessment and Plan (1) Non-healing wound: Status: Acute (2) BIB (acute kidney injury): Status: Acute Assessment and Plan: 54yo M with uncontrolled DM2 [A1c 12.3], restrictive lung disease, RIGOBERTO, PAD s/p angioplasty L posterior tibial artery 2019 has had non-healing L plantar wound for past 6 weeks followed by [facility], most recently on SMX/TMP but developed fever admitted with severe sepsis from diabetic foot infection # infected diabetic foot ulcer - vanco + cefepime + metronidazole d#2. follow BCx. Superficial wound Cx at [facility] grew GBS + Aeromonas hydrophila - lactate normalized - concern of underling osteomyelitis- MRI pending - Surgery consulted, no debridement indicated; recommend local wound care with silver calcium alginate and dry sterile dressings daily - arterial Doppler US # BIB - likely due to sepsis, improving with IV fluid hydration # HTN - continue lisinopril # PAD - continue statin, clopidogrel # DM2 - basal/bolus insulin # VTE px - UFH
[2020-10-08 15:28] LABS: Vancomycin Trough 6.3 mcg/mL (10.0-20.0)
--- NOTE | 2020-10-08 18:37 | PC.NURSE ---
Patient OOB to recliner for majority of the day. General surgeon changed dressing to left foot. Vanco trough drawn. US of BLE's completed. No complaints of pain. Able to amb independently to bathroom. MRI pending. No complaints, no complications.
[2020-10-08 20:08] LABS: Glucose, Whole Blood 280 mg/dL (60-115)
[2020-10-08] MEDS: Atorvastatin Calcium 20 MG TABLET PO (20:26)
[2020-10-09] VITALS (7 sets, daily range): BP systolic 119–144; BP diastolic 62–78; PULSE 66–82; RESP 14–20; TEMP 36.4–37.2; O2SAT 92–95; BMI 46.5
[2020-10-09] MEDS: vancomycin HCL 1,250 MG in 0.9 % Sodium Chloride 250 ML 166.67 MG IV ×2 (00:29→07:58)
[2020-10-09] MEDS: Acetaminophen 325 MG TABLET 650 MG PO ×2 (01:57→21:01)
[2020-10-09] MEDS: metroNIDAZOLE/NS 500 MG/100 ML PIGGYBACK 100 MG IV ×3 (02:42→19:33)
[2020-10-09] MEDS: cefEPime HCl 1 GM in 0.9 % Sodium Chloride 50 ML IV ×3 (04:32→21:02)
[2020-10-09] MEDS: Lactated Ringers 1,000 ML 100 ML IVCONT (05:26)
[2020-10-09 06:40] LABS: Hematocrit 37.4 % (42-52); Hemoglobin 11.9 g/dl (14.0-18.0); Mean Corpuscular HGB Conc 31.8 g/dl (31.0-36.0); Mean Corpuscular Hemoglobin 29.3 pg (27.0-33.0); Mean Corpuscular Volume 92.1 fL (80-98); Mean Platelet Volume 10.4 fL (9.4-12.4); Platelet Count 162 X10*3/uL (160-400); Red Blood Count 4.06 X10*6/uL (4.60-5.80); Red Cell Distribution Width 13.6 % (11.0-16.0); White Blood Count 5.5 X10*3/uL (4.8-10.8)
[2020-10-09 06:56] LABS: Anion Gap 12 (12-20); Blood Urea Nitrogen 19 mg/dL (9-16); Calcium 8.4 mg/dL (8.4-10.2); Carbon Dioxide 25 mmol/L (22-29); Chloride 102 mmol/L (96-108); Creatinine Clr Calc Pharmacy 108.2; Estimated Glomerular Filt Rate > 60; Glucose Random 304 mg/dL (60-115); Sodium 134 mmol/L (135-145)
[2020-10-09 07:44] LABS: Glucose, Whole Blood 259 mg/dL (60-115)
[2020-10-09] MEDS: Insulin Lispro 100 UNIT/ML 3 ML VIAL SUBCUT ×4 (07:50→21:01)
[2020-10-09] MEDS: 0.9 % Sodium Chloride Flush 3 ML SYRINGE IVFLUSH ×3 (07:51→21:02)
[2020-10-09] MEDS: lisinopriL 2.5 MG TABLET PO (08:12)
[2020-10-09] MEDS: Gabapentin 300 MG CAPSULE PO ×3 (08:12→21:01)
[2020-10-09] MEDS: Clopidogrel Bisulfate 75 MG TABLET PO (08:12)
[2020-10-09] MEDS: Insulin Glargine,Hum.rec.anlog 100 UNIT/ML 10 ML VIAL 80 UNIT SUBCUT (09:02)
[2020-10-09] MEDS: Heparin Sodium,Porcine 5,000 UNIT/ML VIAL 5000 UNIT SUBCUT ×2 (10:11→21:03)
[2020-10-09 11:26] LABS: Glucose, Whole Blood 336 mg/dL (60-115)
--- NOTE | 2020-10-09 11:36 | MHC.CM.PN ---
Per ROUNDS discussion, Patient is not yet medically cleared for dc (MRI & ID Consult needed).Home/resume [facility] clinic is the goal and CM will follow for possible need to adjust the dc plan.
--- NOTE | 2020-10-09 12:17 | P.CONGS_ITS ---
History of Present Illness Consult details Consult date: 10/09/20 Narrative: Morbidly obese 55-year-old male presents for evaluation regarding nonhealing left lower extremity ulceration. Of note he is an uncontrolled diabetic. He has had a nonhealing ulcer and toe amputation in the past. He had undergone endovascular intervention and subsequently went on to heal that wound. Most recently 2-3 days ago [facility] noted increased pain and drainage from the plantar aspect of the foot. He noted some fevers and chills and subsequently came to the hospital. He now presents to us for vascular evaluation. Review of Systems Review of Systems: Yes all other systems are reviewed and are negative Constitutional: Constitutional: Reports no additional constitutional complaints ENT: Reports Normal hearing present Cardiovascular: Cardiovascular: Denies chest pain, Denies chest pain at rest, Denies chest pain with activity and Denies pedal edema Respiratory: Respiratory: Denies cough Gastrointestinal: Gastrointestinal: Denies abdominal pain Musculoskeletal: Musculoskeletal: Denies abnormal gait, Denies muscle cramps and Denies radiating pain into limb Integumentary/Breasts: Skin/Breast: Denies skin ulcer and Denies wounds Neurologic: Reports Normal hearing present and Denies abnormal gait Psychiatric: Psychiatric: Reports no additional psychiatric complaints PMFSH Past Medical History Medical History Diabetes Morbid obesity Nocturnal hypoxemia RIGOBERTO (obstructive sleep apnea) Restrictive lung disease Social History Social History Household Members: Family Do you presently have visiting nurse or other home services: No Patient Tobacco Use Status: Never used Tobacco Smoked in Last 30 Days: No Patient Interested in Nicotine Replacement: No Patient Given Instructions on How to Stop Smoking: No Second Hand Smoke Exposure: No Use of substances other than those prescribed or required for medical reasons: No Currently Displaying Signs/Symptoms of Drug Intoxication Withdrawal: No Have you been hit, kicked, punched, or otherwise hurt by someone within the past year? If so, by whom?: No Do you feel safe in your current relationship?: No Is there a partner from a previous relationship who is making you feel unsafe now?: No Are you made to feel afraid or neglected: No Congregational Healthcare Practices: advent Cultural Healthcare Practices: would accept blood transfusion Advance Directives: No Advance Directives Information Provided: No Do you have thoughts of harming others: None Do you have a plan to hurt others: No Plan service: No Meds Allergies Allergy/AdvReac Type Severity Reaction Status Date / Time penicillin G Allergy Unknown Unknown Verified 07/10/20 09:50 Active Medications: Current Medications Generic Name Dose Route Start Last Admin Trade Name Freq PRN Reason Stop Dose Admin Acetaminophen 650 mg 10/07/20 21:58 10/09/20 01:57 Acetaminophen 325 Mg Tablet PO 650 mg Q6H PRN Administration Pain, Mild (Pain Scale 1-3) Atorvastatin Calcium 20 mg 10/08/20 21:00 10/08/20 20:26 Atorvastatin Calcium 20 Mg Tablet PO 20 mg BEDTIME MICHAEL Administration Clopidogrel Bisulfate 75 mg 10/08/20 09:00 10/09/20 08:12 Clopidogrel Bisulfate 75 Mg Tablet PO 75 mg DAILY MICHAEL Administration Docusate Sodium 100 mg 10/07/20 21:58 Docusate Sodium 100 Mg Capsule PO DAILY PRN Constipation Gabapentin 300 mg 10/07/20 22:00 10/09/20 08:12 Gabapentin 300 Mg Capsule PO 300 mg TID MICHAEL Administration Heparin Sodium (Porcine) 5,000 unit 10/07/20 22:00 10/09/20 10:11 Heparin Sodium,Porcine 5,000 Unit/Ml Vial SUBCUT 5,000 unit Q12H MICHAEL Administration Cefepime HCl 1 gm/ Sodium 50 mls @ 100 mls/hr 10/08/20 12:00 10/09/20 05:30 Chloride IV Infused Q8H MICHAEL Infusion Metronidazole 500 mg in 100 mls @ 100 mls/hr 10/08/20 09:00 10/09/20 11:10 Flagyl IV Infused Q8H MICHAEL Infusion Vancomycin HCl 1,250 mg/ 250 mls @ 166.667 mls/hr 10/09/20 00:00 10/09/20 09:57 Sodium Chloride IV Infused Q8H MICHAEL Infusion Insulin Glargine 80 unit 10/08/20 09:00 10/09/20 09:02 Insulin Glargine,Hum.Rec.Anlog 100 Unit/Ml 10 Ml Vial SUBCUT 80 unit DAILY MICHAEL Administration Insulin Human Lispro 0 unit 10/08/20 07:30 10/09/20 11:43 Insulin Lispro 100 Unit/Ml 3 Ml Vial SUBCUT 10 unit QIDACHS MICHAEL Administration Protocol Lisinopril 2.5 mg 10/08/20 09:00 10/09/20 08:12 Lisinopril 2.5 Mg Tablet PO 2.5 mg DAILY [facility] Administration Protocol Ondansetron HCl 4 mg 10/07/20 21:58 Ondansetron Hcl 4 Mg/2 Ml Vial IVPUSH Q8H PRN Nausea and Vomiting Oxycodone HCl 5 mg 10/07/20 21:58 Oxycodone Hcl Immed Release 5 Mg Tablet PO Q6H PRN Pain, Severe (Pain Scale 7-10) Pharmacy Consult 1 each 10/07/20 21:58 Consult Rx Vancomycin Dosing MISCELLANE DAILY PRN Consult order Sodium Chloride 3 ml 10/08/20 00:00 10/09/20 07:51 0.9 % Sodium Chloride Flush 3 Ml Syringe IVFLUSH 3 ml QSHIFT [facility] Administration Home Medications Medication Instructions Recorded Confirmed Last Taken Type blood sugar diagnostic [FreeStyle 10/07/20 10/07/20 1 Day Ago History Test] ~10/06/20 clopidogrel 1 tab PO DAILY 10/07/20 10/07/20 1 Day Ago History ~10/06/20 gabapentin 1 cap PO TID 10/07/20 10/07/20 1 Day Ago History ~10/06/20 glipizide 1 tab PO BID 10/07/20 10/07/20 1 Day Ago History ~10/06/20 insulin glargine [Lantus Solostar 80 unit SUBCUT DAILY 10/07/20 10/07/20 1 Day Ago History U-100 Insulin] ~10/06/20 lisinopril 1 tab PO DAILY 10/07/20 10/07/20 1 Day Ago History ~10/06/20 metformin 1 tab PO BID 10/07/20 10/07/20 1 Day Ago History ~10/06/20 simvastatin 40 mg PO QPM 10/07/20 10/07/20 1 Day Ago History ~10/06/20 sulfamethoxazole-trimethoprim 1 tab PO BID 10/07/20 10/07/20 1 Day Ago History ~10/06/20 Physical Exam Vital Signs: Vital Signs: Last Vital Signs Temp 98.0 F 10/09/20 10:53 Pulse 75 10/09/20 10:53 Resp 20 10/09/20 10:53 BP 119/78 10/09/20 10:53 Pulse Ox 92 10/09/20 10:53 Body Mass Index 46.5 Const: General: cooperative, healthy appearing and comfortable O rientation/consciousness: oriented to person, oriented to place and oriented to time HENMT: Head: Yes normal to inspection Neck: Neck: Yes normal visual inspection Carotids: no bruits Chest: Chest palpation & inspection: normal inspection of the chest Resp: Effort & Inspection: normal respiratory effort and able to speak in complete sentences Auscultation: clear to auscultation bilaterally, no crackles, no rales, no rhonchi and no wheezes Cardio: Rate: regular rate Rhythm: regular rhythm Heart sounds: S1 normal heart sound present and S2 normal heart sound present Bruits: no carotid bruits Peripheral pulses: dorsalis pedis present (Left side DP signal) GI: Inspection: Yes normal to inspection Skin: Wounds: no wounds Hair: normal Neuro: General: oriented to person, oriented to place and oriented to time Cranial nerves: Yes CN's II-XII intact bilaterally and Yes Normal hearing present Cognition (Neuro): normal cognition Motor exam (neuro): 5/5 motor strength present throughout Extrem: Other: venous exam: No significant superficial varicosities or spider telangiectasias, minimal edema General: No clubbing, No cyanosis and No edema Psych: Appearance: grossly normal Mental Status: mental status grossly normal Speech and movement: Normal speech and movement present Results Labs Result diagrams: 10/09/20 05:17 10/09/20 05:17 Labs: Abnormal lab results 10/08/20 10/08/20 10/08/20 Range/Units 14:50 15:15 20:03 RBC (4.60-5.80) X10*6/uL Hgb (14.0-18.0) g/dl Hct (42-52) % Sodium (135-145) mmol/L BUN (9-16) mg/dL POC Glucose 251 H 280 H (60-115) mg/dL Random Glucose (60-115) mg/dL Vancomycin Trough 6.3 L (10.0-20.0) mcg/mL 10/09/20 10/09/20 10/09/20 Range/Units 05:17 05:17 07:10 RBC 4.06 L (4.60-5.80) X10*6/uL Hgb 11.9 L (14.0-18.0) g/dl Hct 37.4 L (42-52) % Sodium 134 L (135-145) mmol/L BUN 19 H (9-16) mg/dL POC Glucose 259 H (60-115) mg/dL Random Glucose 304 H (60-115) mg/dL Vancomycin Trough (10.0-20.0) mcg/mL 10/09/20 Range/Units 10:55 RBC (4.60-5.80) X10*6/uL Hgb (14.0-18.0) g/dl Hct (42-52) % Sodium (135-145) mmol/L BUN (9-16) mg/dL POC Glucose 336 H (60-115) mg/dL Random Glucose (60-115) mg/dL Vancomycin Trough (10.0-20.0) mcg/mL Short CBC 10/09/20 Range/Units 05:17 WBC 5.5 (4.8-10.8) X10*3/uL Hgb 11.9 L (14.0-18.0) g/dl Hct 37.4 L (42-52) % Plt Count 162 (160-400) X10*3/uL BMP 10/09/20 05:17 Sodium 134 L Potassium 5.0 Chloride 102 Carbon Dioxide 25 BUN 19 H Creatinine 1.20 Calcium 8.4 All other labs normal. Assessment and Plan (1) PAD (peripheral artery disease): Status: Acute In short patient has a nonhealing left foot ulcer. It appears that he has uncontrolled blood sugars. He has a plantar ulceration that may be mul tifactorial. I did discuss the importance of offloading. He may benefit from a peripheral intervention. We will await results of MR a study. Will plan for potential endovascular intervention pending results of that. General surgery following in regards to the wound. Thank you for allowing us to assist in this patient's care. If there are any questions or concerns please do not hesitate to contact us. Procedures Date of Service Date of Service: 10/09/20
--- NOTE | 2020-10-09 12:43 | HO.PM.IMPN ---
Subjective Subjective Date of Service: 10/09/20 Interval History: No foot pain but neuropathic No fever No N/V Upset at being hospitalized on [birth year] birthday Physical Exam Vital Signs: Vital Signs: Last Vital Signs Temp 98.0 F 10/09/20 10:53 Pulse 75 10/09/20 10:53 Resp 20 10/09/20 10:53 BP 119/78 10/09/20 10:53 Pulse Ox 92 10/09/20 10:53 Body Mass Index 46.5 Gen: in no acute distress HEENT: sclera anicteric, moist mucus membranes Neck: supple Lungs: clear to auscultation bilaterally Heart: regular rate and rhythm, no murmurs Abd: soft, obese non-tender, non-distended Ext: no edema Skin: L plantar ulcer, L 5th toe surgically absent Neuro: alert and oriented x3, dense neuropathy of feet Psych: appropriate affect Objective Data Current Medications Generic Name Dose Route Start Last Admin Trade Name Freq PRN Reason Stop Dose Admin Acetaminophen 650 mg 10/07/20 21:58 10/09/20 01:57 Acetaminophen 325 Mg Tablet PO 650 mg Q6H PRN Administration Pain, Mild (Pain Scale 1-3) Atorvastatin Calcium 20 mg 10/08/20 21:00 10/08/20 20:26 Atorvastatin Calcium 20 Mg Tablet PO 20 mg BEDTIME MICHAEL Administration Clopidogrel Bisulfate 75 mg 10/08/20 09:00 10/09/20 08:12 Clopidogrel Bisulfate 75 Mg Tablet PO 75 mg DAILY MICHAEL Administration Docusate Sodium 100 mg 10/07/20 21:58 Docusate Sodium 100 Mg Capsule PO DAILY PRN Constipation Gabapentin 300 mg 10/07/20 22:00 10/09/20 08:12 Gabapentin 300 Mg Capsule PO 300 mg TID MICHAEL Administration Heparin Sodium (Porcine) 5,000 unit 10/07/20 22:00 10/09/20 10:11 Heparin Sodium,Porcine 5,000 Unit/Ml Vial SUBCUT 5,000 unit Q12H MICHAEL Administration Cefepime HCl 1 gm/ Sodium 50 mls @ 100 mls/hr 10/08/20 12:00 10/09/20 05:30 Chloride IV Infused Q8H MCIHAEL Infusion Metronidazole 500 mg in 100 mls @ 100 mls/hr 10/08/20 09:00 10/09/20 11:10 Flagyl IV Infused Q8H MICHAEL Infusion Vancomycin HCl 1,250 mg/ 250 mls @ 166.667 mls/hr 10/09/20 00:00 10/09/20 09:57 Sodium Chloride IV Infused Q8H [facility] Infusion Insulin Glargine 80 unit 10/08/20 09:00 10/09/20 09:02 Insulin Glargine,Hum.Rec.Anlog 100 Unit/Ml 10 Ml Vial SUBCUT 80 unit DAILY [facility] Administration Insulin Human Lispro 0 unit 10/08/20 07:30 10/09/20 11:43 Insulin Lispro 100 Unit/Ml 3 Ml Vial SUBCUT 10 unit QIDACHS [facility] Administration Protocol Lisinopril 2.5 mg 10/08/20 09:00 10/09/20 08:12 Lisinopril 2.5 Mg Tablet PO 2.5 mg DAILY [facility] Administration Protocol Ondansetron HCl 4 mg 10/07/20 21:58 Ondansetron Hcl 4 Mg/2 Ml Vial IVPUSH Q8H PRN Nausea and Vomiting Oxycodone HCl 5 mg 10/07/20 21:58 Oxycodone Hcl Immed Release 5 Mg Tablet PO Q6H PRN Pain, Severe (Pain Scale 7-10) Pharmacy Consult 1 each 10/07/20 21:58 Consult Rx Vancomycin Dosing MISCELLANE DAILY PRN Consult order Sodium Chloride 3 ml 10/08/20 00:00 10/09/20 07:51 0.9 % Sodium Chloride Flush 3 Ml Syringe IVFLUSH 3 ml QSHIFT [facility] Administration Labs CBC & Chem 7: 10/09/20 05:17 10/09/20 05:17 Labs: Laboratory Results - last 24 hr 10/08/20 10/08/20 10/08/20 14:50 15:15 20:03 WBC RBC Hgb Hct MCV MCH MCHC RDW Plt Count MPV Absolute Nucleated RBC Nucleated RBC % (auto) Sodium Potassium Chloride Carbon Dioxide Anion Gap BUN Creatinine Estim Creat Clear Calc Estimated GFR POC Glucose 251 H 280 H Random Glucose Calcium Vancomycin Trough 6.3 L 10/09/20 10/09/20 10/09/20 05:17 05:17 07:10 WBC 5.5 RBC 4.06 L Hgb 11.9 L Hct 37.4 L MCV 92.1 MCH 29.3 MCHC 31.8 RDW 13.6 Plt Count 162 MPV 10.4 Absolute Nucleated RBC 0.000 Nucleated RBC % (auto) 0.0 Sodium 134 L Potassium 5.0 Chloride 102 Carbon Dioxide 25 Anion Gap 12 BUN 19 H Creatinine 1.20 Estim Creat Clear Calc 108.2 Estimated GFR > 60 POC Glucose 259 H Random Glucose 304 H Calcium 8.4 Vancomycin Trough 10/09/20 10:55 WBC RBC Hgb Hct MCV MCH MCHC RDW Plt Count MPV Absolute Nucleated RBC Nucleated RBC % (auto) Sodium Potassium Chloride Carbon Dioxide Anion Gap BUN Creatinine Estim Creat Clear Calc Estimated GFR POC Glucose 336 H Random Glucose Calcium Vancomycin Trough ITS Impressions Foot X-Ray 10/07/20 15:06 IMPRESSION: Old healed fractures and degenerative changes without fracture or overt evidence for osteomyelitis. Venous Duplex 10/07/20 15:21 IMPRESSION: No DVT demonstrated in the left lower extremity. Duplex Scan Lower Extremity Artery 10/08/20 10:54 IMPRESSION: Bilateral vessel wall calcification and trifurcation disease. Occluded left posterior tibial artery and increased peak systolic velocity and abnormal waveform in the right posterior tibial artery. Microbiology Microbiology Results: Microbiology 10/07/20 15:38 Blood Culture - Preliminary Blood - Venous No growth after 24 hours. 10/07/20 15:38 Blood Culture - Preliminary Blood - Venous No growth after 24 hours. Quality Stroke Does the patient have a stroke diagnosis?: No VTE Prior VTE?: No VTE Risk Level:: Medical - moderate - high VTE Device Contraindication: Treatment Not Indicated VTE Drug Contraindication: N/A - Med Ordered Assessment and Plan (1) Non-healing wound: Status: Acute (2) BIB (acute kidney injury): Status: Acute Assessment and Plan: hospital d#3 54yo M with uncontrolled DM2 [A1c 12.3], restrictive lung disease, RIGOBERTO, PAD s/p angioplasty L posterior tibial artery 2019 has had non-healing L plantar wound for past 6 weeks followed by [facility], most recently on SMX/TMP but developed fever admitted with severe sepsis from diabetic foot infection # infected diabetic foot ulcer - vanco + cefepime + metronidazole d#3. follow BCx; [place] [facility] [place] GBS + Aeromonas hydrophila - lactate normalized - concern of underling osteomyelitis- MRI pending - ID consult pending - Surgery consulted, no debridement indicated; recommend local wound care with silver calcium alginate and dry sterile dressings daily # PAD - L [employer] occlusion on arterial Doppler which has developed since prior negative exam 01/25/20 - Vascular Surgery consult # BIB - likely due to sepsis, resolved with IV fluid hydration # HTN - continue lisinopril # PAD - continue statin, clopidogrel # DM2 - basal/bolus insulin # VTE px - UFH
[2020-10-09 16:05] LABS: Glucose, Whole Blood 285 mg/dL (60-115)
[2020-10-09 17:25] LABS: Vancomycin Trough 13.2 mcg/mL (10.0-20.0)
[2020-10-09] MEDS: vancomycin HCL 1,000 MG in 0.9 % Sodium Chloride 250 ML 270 MG IV (17:58)
[2020-10-09 20:51] LABS: Glucose, Whole Blood 271 mg/dL (60-115)
[2020-10-09] MEDS: Atorvastatin Calcium 20 MG TABLET PO (21:01)
[2020-10-10] VITALS (7 sets, daily range): BP systolic 116–152; BP diastolic 62–87; PULSE 68–83; RESP 12–20; TEMP 36.3–36.8; O2SAT 92–98; BMI 45.3
[2020-10-10] MEDS: metroNIDAZOLE/NS 500 MG/100 ML PIGGYBACK 100 MG IV ×3 (01:29→16:52)
[2020-10-10] MEDS: cefEPime HCl 1 GM in 0.9 % Sodium Chloride 50 ML IV (04:17)
[2020-10-10] MEDS: vancomycin HCL 1,000 MG in 0.9 % Sodium Chloride 250 ML 270 MG IV (05:59)
[2020-10-10 07:04] LABS: Estimated Average Glucose 303 mg/dL; Hemoglobin A1c % 12.2 %
[2020-10-10 07:55] LABS: Glucose, Whole Blood 229 mg/dL (60-115)
[2020-10-10] MEDS: Insulin Lispro 100 UNIT/ML 3 ML VIAL SUBCUT ×4 (08:17→20:45)
[2020-10-10] MEDS: Gabapentin 300 MG CAPSULE PO ×3 (08:18→20:45)
[2020-10-10] MEDS: Insulin Glargine,Hum.rec.anlog 100 UNIT/ML 10 ML VIAL 85 UNIT SUBCUT (08:18)
[2020-10-10] MEDS: lisinopriL 2.5 MG TABLET PO (08:18)
[2020-10-10] MEDS: Clopidogrel Bisulfate 75 MG TABLET PO (08:18)
[2020-10-10] MEDS: 0.9 % Sodium Chloride Flush 3 ML SYRINGE IVFLUSH ×2 (08:19→20:45)
[2020-10-10 08:39] LABS: Anion Gap 13 (12-20); Blood Urea Nitrogen 16 mg/dL (9-16); Calcium 8.9 mg/dL (8.4-10.2); Carbon Dioxide 26 mmol/L (22-29); Chloride 101 mmol/L (96-108); Creatinine Clr Calc Pharmacy 131.9; Estimated Glomerular Filt Rate > 60; Glucose Random 247 mg/dL (60-115); Potassium 5.3 mmol/L (3.3-5.1); Sodium 135 mmol/L (135-145)
[2020-10-10] MEDS: Heparin Sodium,Porcine 5,000 UNIT/ML VIAL 5000 UNIT SUBCUT ×2 (09:18→20:45)
--- NOTE | 2020-10-10 10:25 | HO.VASCPN ---
Subjective Subjective Date of Service: 10/10/20 Patient reports: no new complaints Interval history: Pleasant obese 55-year-old diabetic gentleman presents for follow-up regarding nonhealing left foot ulceration. Of note he has undergone MRI and noninvasive arterial testing. He is now for vascular follow-up. Physical Exam Vital Signs: Vital Signs: Last Vital Signs Temp 98.1 F 10/10/20 08:00 Pulse 76 10/10/20 08:18 Resp 20 10/10/20 08:00 BP 145/86 H 10/10/20 08:18 Pulse Ox 98 10/10/20 08:00 Body Mass Index 45.3 Const: General: cooperative, healthy appearing and no acute distress Orientation/consciousness: oriented to person, oriented to place and oriented to time HENMT: Head: Yes normal to inspection Neck: Carotids: no bruits Chest: Chest palpation & inspection: normal inspection of the chest Resp: Effort & Inspection: normal respiratory effort and able to speak in complete sentences Auscultation: clear to auscultation bilaterally Cardio: Rate: regular rate Heart sounds: S1 normal heart sound present and S2 normal heart sound present GI: Inspection: Yes normal to inspection Skin: General skin exam: no rashes or lesions noted Wounds: wounds noted (Left plantar foot ulcer) Neuro: General: oriented to person, oriented to place, oriented to time and CN's II-XI intact bilaterally Extrem: General: Yes normal to inspection, Yes full ROM and Yes no clubbing, cyanosis or edema Psych: Appearance: grossly normal and well kempt Speech and movement: Normal speech and movement present Affect: normal affect Progress Note: A&P Assessment and plan (1) PAD (peripheral artery disease): Status: Acute Assessment and Plan: Patient has a nonhealing left foot ulceration. I have discussed the pathophysiology of peripheral vascular disease with the patient. I have also discussed risk factor modification. I have reviewed the patient's arterial testing which reveals occluded posterior tibial artery. the patient would benefit from a left leg endovascular peripheral angiogram with possible angioplasty, stent, and/or atherectomy. This has been discussed in detail with the patient along with risks, benefits, and complications. This includes but is not limited to bleeding, infection, heart attack, need for emergent surgical repair, limb ischemia, blood vessel damage, bleeding, puncture, kidney injury, bruising, allergic reaction, and skin reaction. The patient demonstrates a clear understanding. We will schedule for tomorrow morning. Thank you for allowing us to assist in this patient's care. Fall Risk Details Current Medications: Current Medications Generic Name Dose Route Start Last Admin Trade Name Nataly PRN Reason Stop Dose Admin Acetaminophen 650 mg 10/07/20 21:58 10/09/20 21:01 Acetaminophen 325 Mg Tablet PO 650 mg Q6H PRN Administration Pain, Mild (Pain Scale 1-3) Atorvastatin Calcium 20 mg 10/08/20 21:00 10/09/20 21:01 Atorvastatin Calcium 20 Mg Tablet PO 20 mg BEDTIME MICHAEL Administration Clopidogrel Bisulfate 75 mg 10/08/20 09:00 10/10/20 08:18 Clopidogrel Bisulfate 75 Mg Tablet PO 75 mg DAILY MICHAEL Administration Docusate Sodium 100 mg 10/07/20 21:58 Docusate Sodium 100 Mg Capsule PO DAILY PRN Constipation Gabapentin 300 mg 10/07/20 22:00 10/10/20 08:18 Gabapentin 300 Mg Capsule PO 300 mg TID MICHAEL Administration Heparin Sodium (Porcine) 5,000 unit 10/07/20 22:00 10/10/20 09:18 Heparin Sodium,Porcine 5,000 Unit/Ml Vial SUBCUT 5,000 unit Q12H MICHAEL Administration Cefepime HCl 1 gm/ Sodium 50 mls @ 100 mls/hr 10/08/20 12:00 10/10/20 04:48 Chloride IV Infused Q8H MICHAEL Infusion Metronidazole 500 mg in 100 mls @ 100 mls/hr 10/08/20 09:00 10/10/20 09:17 Flagyl IV 100 mls/hr Q8H MICHAEL Administration Vancomycin HCl 1,000 mg/ 270 mls @ 270 mls/hr 10/09/20 18:00 10/10/20 07:10 Sodium Chloride IV Infused Q12H MICHAEL Infusion Insulin Glargine 85 unit 10/10/20 09:00 10/10/20 08:18 Insulin Glargine,Hum.Rec.Anlog 100 Unit/Ml 10 Ml Vial SUBCUT 85 unit DAILY MICHAEL Administration Insulin Human Lispro 0 unit 10/08/20 07:30 10/10/20 08:17 Insulin Lispro 100 Unit/Ml 3 Ml Vial SUBCUT 6 unit QIDACHS MICHAEL Administration Protocol Lisinopril 2.5 mg 10/08/20 09:00 10/10/20 08:18 Lisinopril 2.5 Mg Tablet PO 2.5 mg DAILY MICHAEL Administration Protocol Ondansetron HCl 4 mg 10/07/20 21:58 Ondansetron Hcl 4 Mg/2 Ml Vial IVPUSH Q8H PRN Nausea and Vomiting Oxycodone HCl 5 mg 10/07/20 21:58 Oxycodone Hcl Immed Release 5 Mg Tablet PO Q6H PRN Pain, Severe (Pain Scale 7-10) Pharmacy Consult 1 each 10/07/20 21:58 Consult Rx Vancomycin Dosing MISCELLANE DAILY PRN Consult order Sodium Chloride 3 ml 10/08/20 00:00 10/10/20 08:19 0.9 % Sodium Chloride Flush 3 Ml Syringe IVFLUSH 3 ml QSHIFT MICHAEL Administration Time Spent With Patient Time: Total time spent is greater than 50% in coordination of care (as documented) at patient's floor/unit and/or counseling patient: Time with patient: 25 - 35 minutes Procedures Date of Service Date of Service: 10/10/20 Quality Stroke Does the patient have a stroke diagnosis?: No VTE Prior VTE?: No VTE Risk Level:: Medical - moderate - high VTE Device Contraindication: Treatment Not Indicated VTE Drug Contraindication: N/A - Med Ordered
--- NOTE | 2020-10-10 11:13 | W.PM.IDCN ---
History of Present Illness Data of Consult Service Date: 10/10/20 Requesting physician: Krystle Schilling Primary Care Provider: Shreyas Da Silva MD HPI Reason for consult: fever of unknown origin He presents to hospital with fever acutely three days ago. He has had left foot exudate worsening yellow then as well. He has temperature 102 and blood culture negative He has had fifth toe infection in past MRI shows no osteomyelitis. Review of Systems Review of Systems: Yes all other systems are reviewed and are negative PMFSH Past Medical History Medical History Diabetes Morbid obesity Nocturnal hypoxemia RIGOBERTO (obstructive sleep apnea) Restrictive lung disease Social History Social History Household Members: Family Do you presently have visiting nurse or other home services: No Patient Tobacco Use Status: Never used Tobacco Smoked in Last 30 Days: No Patient Interested in Nicotine Replacement: No Patient Given Instructions on How to Stop Smoking: No Second Hand Smoke Exposure: No Use of substances other than those prescribed or required for medical reasons: No Currently Displaying Signs/Symptoms of Drug Intoxication Withdrawal: No Have you been hit, kicked, punched, or otherwise hurt by someone within the past year? If so, by whom?: No Do you feel safe in your current relationship?: No Is there a partner from a previous relationship who is making you feel unsafe now?: No Are you made to feel afraid or neglected: No Zoroastrian Healthcare Practices: restoration Cultural Healthcare Practices: would accept blood transfusion Advance Directives: No Advance Directives Information Provided: No Do you have thoughts of harming others: None Do you have a plan to hurt others: No Plan service: No Meds Allergies Allergy/AdvReac Type Severity Reaction Status Date / Time penicillin G Allergy Unknown Unknown Verified 07/10/20 09:50 Active Medications: Current Medications Generic Name Dose Route Start Last Admin Trade Name Freq PRN Reason Stop Dose Admin Acetaminophen 650 mg 10/07/20 21:58 10/09/20 21:01 Acetaminophen 325 Mg Tablet PO 650 mg Q6H PRN Administration Pain, Mild (Pain Scale 1-3) Atorvastatin Calcium 20 mg 10/08/20 21:00 10/09/20 21:01 Atorvastatin Calcium 20 Mg Tablet PO 20 mg BEDTIME MICHAEL Administration Clopidogrel Bisulfate 75 mg 10/08/20 09:00 10/10/20 08:18 Clopidogrel Bisulfate 75 Mg Tablet PO 75 mg DAILY MICHAEL Administration Docusate Sodium 100 mg 10/07/20 21:58 Docusate Sodium 100 Mg Capsule PO DAILY PRN Constipation Gabapentin 300 mg 10/07/20 22:00 10/10/20 08:18 Gabapentin 300 Mg Capsule PO 300 mg TID MICHAEL Administration Heparin Sodium (Porcine) 5,000 unit 10/07/20 22:00 10/10/20 09:18 Heparin Sodium,Porcine 5,000 Unit/Ml Vial SUBCUT 5,000 unit Q12H MICHAEL Administration Metronidazole 500 mg in 100 mls @ 100 mls/hr 10/08/20 09:00 10/10/20 10:29 Flagyl IV Infused Q8H MICHAEL Infusion Vancomycin HCl 1,000 mg/ 270 mls @ 270 mls/hr 10/09/20 18:00 10/10/20 07:10 Sodium Chloride IV Infused Q12H MICHAEL Infusion Sodium Chloride 1,000 mls @ 100 mls/hr 10/11/20 06:00 Ns IVCONT .Q10H MICHAEL Insulin Glargine 85 unit 10/10/20 09:00 10/10/20 08:18 Insulin Glargine,Hum.Rec.Anlog 100 Unit/Ml 10 Ml Vial SUBCUT 85 unit DAILY [facility] Administration Insulin Human Lispro 0 unit 10/08/20 07:30 10/10/20 08:17 Insulin Lispro 100 Unit/Ml 3 Ml Vial SUBCUT 6 unit QIDACHS [facility] Administration Protocol Lisinopril 2.5 mg 10/08/20 09:00 10/10/20 08:18 Lisinopril 2.5 Mg Tablet PO 2.5 mg DAILY [facility] Administration Protocol Ondansetron HCl 4 mg 10/07/20 21:58 Ondansetron Hcl 4 Mg/2 Ml Vial IVPUSH Q8H PRN Nausea and Vomiting Oxycodone HCl 5 mg 10/07/20 21:58 Oxycodone Hcl Immed Release 5 Mg Tablet PO Q6H PRN Pain, Severe (Pain Scale 7-10) Pharmacy Consult 1 each 10/07/20 21:58 Consult Rx Vancomycin Dosing MISCELLANE DAILY PRN Consult order Sodium Chloride 3 ml 10/08/20 00:00 10/10/20 08:19 0.9 % Sodium Chloride Flush 3 Ml Syringe IVFLUSH 3 ml QSMTFT [facility] Administration Home Medications Medication Instructions Recorded Confirmed Last Taken Type blood sugar diagnostic [FreeStyle 10/07/20 10/07/20 1 Day Ago History Test] ~10/06/20 clopidogrel 1 tab PO DAILY 10/07/20 10/07/20 1 Day Ago History ~10/06/20 gabapentin 1 cap PO TID 10/07/20 10/07/20 1 Day Ago History ~10/06/20 glipizide 1 tab PO BID 10/07/20 10/07/20 1 Day Ago History ~10/06/20 insulin glargine [Lantus Solostar 80 unit SUBCUT DAILY 10/07/20 10/07/20 1 Day Ago History U-100 Insulin] ~10/06/20 lisinopril 1 tab PO DAILY 10/07/20 10/07/20 1 Day Ago History ~10/06/20 metformin 1 tab PO BID 10/07/20 10/07/20 1 Day Ago History ~10/06/20 simvastatin 40 mg PO QPM 10/07/20 10/07/20 1 Day Ago History ~10/06/20 sulfamethoxazole-trimethoprim 1 tab PO BID 10/07/20 10/07/20 1 Day Ago History ~10/06/20 Physical Exam Vital Signs: Vital Signs: Last Vital Signs Temp 97.4 F 10/10/20 11:00 Pulse 83 10/10/20 11:00 Resp 20 10/10/20 11:00 BP 129/74 10/10/20 11:00 Pulse Ox 95 10/10/20 11:00 Body Mass Index 45.3 Const: General: cooperative HENMT: Head: Yes normal to inspection Mouth: Normal oral and palatal mucosa present Resp: Effort & Inspection: normal respiratory effort Cardio: Rate: regular rate Rhythm: regular rhythm GI: Palpation (GI): Soft to palpation and nontender : General: Yes no CVA tenderness Back/Spine/Pelvis: Back: no CVA tenderness Skin: General skin exam: no rashes or lesions noted Extrem: Other: left foot slight exudate laterally,no acute purulence Results Labs CBC & Chem 7: 10/09/20 05:17 10/10/20 07:48 Labs: BMP 10/10/20 07:48 Sodium 135 Potassium 5.3 H Chloride 101 Carbon Dioxide 26 BUN 16 Creatinine 0.97 Calcium 8.9 Microbiology Microbiology Results: Microbiology 10/07/20 15:38 Blood - Venous Blood Culture - Preliminary No growth after 48 hours. 10/07/20 15:38 Blood - Venous Blood Culture - Preliminary No growth after 48 hours. Assessment and Plan (1) Sepsis: Status: Acute (2) Fever: Qualifiers: Fever type: unspecified Qualified Code(s): R50.9 - Fever, unspecified Status: Acute He has had fever He has possible reaction to Bactrim causing fever or more likely abscess in foot ,now resolving Suggest Since cultures are negative would give po Ceftin and Flagyl for 10 days as long as improving.
[2020-10-10 11:30] LABS: Glucose, Whole Blood 317 mg/dL (60-115)
[2020-10-10] MEDS: cefTRIAXone sodium 1 GM in 0.9 % Sodium Chloride 50 ML IV (11:50)
--- NOTE | 2020-10-10 15:00 | PC.NURSE ---
Skin assessment completed today. Pt. has a left plantar foot diabetic ulcer, Welch grade 1. No drainage noted. Silver alginate applied to wound bed covered with gauze and roll gauze. Edema noted on bilateral [id number]. Left 5th toe surgically absent.
--- NOTE | 2020-10-10 15:10 | P.PNIM_ITS ---
Subjective Subjective Date of Service: 10/10/20 Interval History: No new complaints Physical Exam Vital Signs: Vital Signs: Last Vital Signs Temp 98.1 F 10/10/20 15:00 Pulse 82 10/10/20 15:00 Resp 18 10/10/20 15:00 BP 152/86 H 10/10/20 15:00 Pulse Ox 96 10/10/20 15:00 Body Mass Index 45.3 Gen: in no acute distress HEENT: sclera anicteric, moist mucus membranes Neck: supple Lungs: clear to auscultation bilaterally Heart: regular rate and rhythm, no murmurs Abd: soft, obese non-tender, non-distended Ext: no edema Skin: L plantar ulcer, L 5th toe surgically absent Neuro: alert and oriented x3, dense neuropathy of feet Psych: appropriate affect Objective Data Current Medications Generic Name Dose Route Start Last Admin Trade Name Freq PRN Reason Stop Dose Admin Acetaminophen 650 mg 10/07/20 21:58 10/09/20 21:01 Acetaminophen 325 Mg Tablet PO 650 mg Q6H PRN Administration Pain, Mild (Pain Scale 1-3) Atorvastatin Calcium 20 mg 10/08/20 21:00 10/09/20 21:01 Atorvastatin Calcium 20 Mg Tablet PO 20 mg BEDTIME MICHAEL Administration Clopidogrel Bisulfate 75 mg 10/08/20 09:00 10/10/20 08:18 Clopidogrel Bisulfate 75 Mg Tablet PO 75 mg DAILY MICHAEL Administration Docusate Sodium 100 mg 10/07/20 21:58 Docusate Sodium 100 Mg Capsule PO DAILY PRN Constipation Gabapentin 300 mg 10/07/20 22:00 10/10/20 08:18 Gabapentin 300 Mg Capsule PO 300 mg TID MICHAEL Administration Heparin Sodium (Porcine) 5,000 unit 10/07/20 22:00 10/10/20 09:18 Heparin Sodium,Porcine 5,000 Unit/Ml Vial SUBCUT 5,000 unit Q12H MICHAEL Administration Metronidazole 500 mg in 100 mls @ 100 mls/hr 10/08/20 09:00 10/10/20 10:29 Flagyl IV Infused Q8H MICHAEL Infusion Vancomycin HCl 1,000 mg/ 270 mls @ 270 mls/hr 10/09/20 18:00 10/10/20 07:10 Sodium Chloride IV Infused Q12H MICHAEL Infusion Sodium Chloride 1,000 mls @ 100 mls/hr 10/11/20 06:00 Ns IVCONT .Q10H [facility] Ceftriaxone Sodium 1 gm/ 50 mls @ 100 mls/hr 10/10/20 12:00 10/10/20 12:20 Sodium Chloride IV Infused Q24H [facility] Infusion Insulin Glargine 85 unit 10/10/20 09:00 10/10/20 08:18 Insulin Glargine,Hum.Rec.Anlog 100 Unit/Ml 10 Ml Vial SUBCUT 85 unit DAILY [facility] Administration Insulin Human Lispro 0 unit 10/08/20 07:30 10/10/20 11:45 Insulin Lispro 100 Unit/Ml 3 Ml Vial SUBCUT 10 unit QIDACHS [facility] Administration Protocol Lisinopril 2.5 mg 10/08/20 09:00 10/10/20 08:18 Lisinopril 2.5 Mg Tablet PO 2.5 mg DAILY [facility] Administration Protocol Ondansetron HCl 4 mg 10/07/20 21:58 Ondansetron Hcl 4 Mg/2 Ml Vial IVPUSH Q8H PRN Nausea and Vomiting Oxycodone HCl 5 mg 10/07/20 21:58 Oxycodone Hcl Immed Release 5 Mg Tablet PO Q6H PRN Pain, Severe (Pain Scale 7-10) Pharmacy Consult 1 each 10/07/20 21:58 Consult Rx Vancomycin Dosing MISCELLANE DAILY PRN Consult order Sodium Chloride 3 ml 10/08/20 00:00 10/10/20 08:19 0.9 % Sodium Chloride Flush 3 Ml Syringe IVFLUSH 3 ml QSHIFT [facility] Administration Labs CBC & Chem 7: 10/09/20 05:17 10/10/20 07:48 Labs: Laboratory Results - last 24 hr 10/09/20 10/09/20 10/09/20 15:58 16:10 20:48 Sodium Potassium Chloride Carbon Dioxide Anion Gap BUN Creatinine Estim Creat Clear Calc Estimated GFR POC Glucose 285 H 271 H Random Glucose Estimat Average Glucose Hemoglobin A1c % Calcium Vancomycin Trough 13.2 10/10/20 10/10/20 10/10/20 05:57 07:28 07:48 Sodium 135 Potassium 5.3 H Chloride 101 Carbon Dioxide 26 Anion Gap 13 BUN 16 Creatinine 0.97 Estim Creat Clear Calc 131.9 Estimated GFR > 60 POC Glucose 229 H Random Glucose 247 H Estimat Average Glucose 303 Hemoglobin A1c % 12.2 Calcium 8.9 Vancomycin Trough 10/10/20 10:53 Sodium Potassium Chloride Carbon Dioxide Anion Gap BUN Creatinine Estim Creat Clear Calc Estimated GFR POC Glucose 317 H Random Glucose Estimat Average Glucose Hemoglobin A1c % Calcium Vancomycin Trough Microbiology Microbiology Results: Microbiology 10/07/20 15:38 Blood Culture - Preliminary Blood - Venous No growth after 48 hours. 10/07/20 15:38 Blood Culture - Preliminary Blood - Venous No growth after 48 hours. Quality Stroke Does the patient have a stroke diagnosis?: No VTE Prior VTE?: No VTE Risk Level:: Medical - moderate - high VTE Device Contraindication: Treatment Not Indicated VTE Drug Contraindication: N/A - Med Ordered Assessment and Plan (1) Non-healing wound: Status: Acute (2) BIB (acute kidney injury): Status: Acute Assessment and Plan: hospital d#4 54yo M with uncontrolled DM2 [A1c 12.3], restrictive lung disease, RIGOBERTO, PAD s/p angioplasty L posterior tibial artery 2019 has had non-healing L plantar wound for past 6 weeks followed by [facility], most recently on SMX/TMP but developed fever admitted with severe sepsis from diabetic foot infection # infected diabetic foot ulcer - ID consulted, ABX narrowed to ceftriaxone + metronidazole d#4; plan to d/c on cefuroxime + metronidazole for total 10 days. no evidence of osteomyelitis on MRI and no bacteremia; no hx of MRSA. 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
[2020-10-10 15:56] LABS: Glucose, Whole Blood 292 mg/dL (60-115)
[2020-10-10 20:09] LABS: Glucose, Whole Blood 295 mg/dL (60-115)
[2020-10-10] MEDS: Atorvastatin Calcium 20 MG TABLET PO (20:45)
[2020-10-11] VITALS (11 sets, daily range): BP systolic 114–147; BP diastolic 72–99; PULSE 61–95; RESP 16–18; TEMP -13.6–36.7; O2SAT 95–97
[2020-10-11] MEDS: metroNIDAZOLE/NS 500 MG/100 ML PIGGYBACK 100 MG IV ×2 (00:58→10:25)
[2020-10-11 06:19] LABS: Glucose, Whole Blood 236 mg/dL (60-115)
--- NOTE | 2020-10-11 06:22 | PC.NURSE ---
Pt valuables sent to security preop.
[2020-10-11] MEDS: 0.9 % Sodium Chloride 1,000 ML 100 ML IVCONT (06:34)
--- NOTE | 2020-10-11 09:19 | P.OP_ITS ---
Operative Note Operative Note Date of Service: 10/11/20 Narrative: Angiogram report from [facility] Preoperative diagnosis: Atherosclerosis of Left lower extremity with nonhealing ulcer Postoperative diagnosis: Same Procedure: 1. Ultrasound-guided right common femoral access 2. Aortogram with left lower extremity runoff 3. StarClose closure device placement Surgeon:Wilbur Caceres M.D. [employer] Teacher:None Anesthesia: Local with moderate conscious sedation for a total of 22 minutes, performed by vt Specimens:none Drains:none Estimated blood loss: Less than 10 ml Indications: 55-year-old gentleman with history of diabetes nonhealing left foot ulcer presents for endovascular intervention. The patient has signed the informed consent after reviewing risks, complications, benefits, and alternatives previously discussed with the patient in my office. The patient was given the opportunity to ask any additional questions or voice any concerns. All questions were answered to the patient's satisfaction. Procedure in detail: Patient was brought to the angiography suite prior to which a time-out was called for patient identification and site verification. Bilateral groins were prepped and draped in the standard surgical fashion. Under ultrasound guidance right common femoral was punctured with micro puncture needle and wire. Subsequently a precision 4 Spanish sheath was then placed. [place] wire was advanced to the level of the aorta. 4 Spanish Flush catheter was brought up and parked at the level of the renal arteries. Aortogram was then undertaken. Catheter was brought down to the level of the iliac bifurcation. Iliacs were subsequently imaged. Catheter was then brought in up and over to the left side SFA. Runoff study was then undertaken. we t hen exchanged out for a 90 cm trail Blazer catheter which was parked in the distal SFA through which below-knee study was undertaken. no intervention was indicated. Catheter wire and sheath were then removed and direct pressure was held for 10 minutes. Patient tolerated the procedure well. Was returned to recovery with stable vitals. Interpretation of films: 1. Ultrasound demonstrates appropriate femoral puncture. Image of which was saved. 2. Aortogram demonstrates appropriate caliber aorta. Minimal disease. Appropriate take-off of the renals. 3. Iliac images demonstrate Good flow with significant tortuosity 4. left lower extremity demonstrated good flow through the common femoral and profundus femoris. SFA was patent all the way to the popliteal popliteal was patent below knee vessels posterior tibial was most dominant and supplied all the way to the foot arch anterior tibial and peroneal were present somewhat smaller but did go to the level of the ankle. Conclusion: 1. Successful diagnostic angiogram. No intervention indicated. Adequate supply to heal ulcer. This note is constructed using voice recognition software. While every effort has been made to ensure accuracy, emergency medicine physician errors may have been included. Thank you for allowing me to participate in the care of your patient. Yours sincerely, Wilbur Caceres MD, FACS, R.P.V.I.
[2020-10-11] MEDS: Gabapentin 300 MG CAPSULE PO (10:19)
[2020-10-11] MEDS: lisinopriL 2.5 MG TABLET PO (10:19)
[2020-10-11] MEDS: Clopidogrel Bisulfate 75 MG TABLET PO (10:19)
[2020-10-11] MEDS: Acetaminophen 325 MG TABLET 650 MG PO (10:19)
[2020-10-11] MEDS: Heparin Sodium,Porcine 5,000 UNIT/ML VIAL 5000 UNIT SUBCUT (10:20)
--- NOTE | 2020-10-11 10:56 | MHC.CM.PN ---
Per ROUNDS discussion, Patient will be medically cleared for dc to home today to resume [facility] services. CM met with Patient who does not feel that he will need the VNA (he explained that his Daughter has been trained to do his dressing changes; DARLIN made MD aware). Patient is aware of the dc plan and eager to go home.
[2020-10-11] MEDS: Lidocaine HCl 1 % MPF 5 ML VIAL SUBCUT (11:35)
[2020-10-11 11:43] LABS: Glucose, Whole Blood 218 mg/dL (60-115)
--- NOTE | 2020-10-11 11:44 | P.DS_ITS ---
DS: Providers Provider Date of Service: 10/11/20 Date of admission: 10/07/20 21:57 Primary care physician: Shreyas Da Silva MD Consults: 10/07/20 21:58 Consult to General Surgery Routine Consulting Provider: Gagan Oshea Reason for consultation: non-healing wound Has provider been notified: No Consult to Infectious Diseases Routine Consulting Provider: Lor Delatorre Reason for consultation: 5 Has provider been notified: No 10/09/20 08:09 Consult to Vascular Surgery Routine Consulting Provider: Wilbur Caceres Reason for consultation: Occluded left posterior tibial artery DS: Diagnosis Discharge Diagnosis (1) Non-healing wound: Status: Acute (2) BIB (acute kidney injury): Status: Acute (3) Severe sepsis: Status: Acute (4) 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: Status: Acute (5) Diabetic foot infection: Status: Acute (6) PAD (peripheral artery disease): Status: Acute (7) Uncontrolled type 2 diabetes mellitus: Status: Acute DS: Medications Discharge Medications Home Medications: Home Medications Medication Instructions Recorded Confirmed FreeStyle Test 10/07/20 10/07/20 Lantus Solostar U-100 Insulin 80 unit SUBCUT DAILY 10/07/20 10/07/20 clopidogrel 1 tab PO DAILY 10/07/20 10/07/20 gabapentin 1 cap PO TID 10/07/20 10/07/20 glipizide 1 tab PO BID 10/07/20 10/07/20 lisinopril 1 tab PO DAILY 10/07/20 10/07/20 metformin 1 tab PO BID 10/07/20 10/07/20 simvastatin 40 mg PO QPM 10/07/20 10/07/20 Previous Rx's Medication Instructions Recorded cefuroxime axetil 500 mg PO BID #20 tab 10/11/20 metronidazole 500 mg PO TID #30 tab 10/11/20 DS: Summary Hospital Course Hospital Course: from admission history and physical by hospitalist Rosita Gillespie, 10/08/20: This is a 54-year-old male with past medical history of diabetes, RIGOBERTO, noct urnal hypoxemia, restrictive lung disease, who presents to the hospital with a nonhealing left plantar wound. Patient reports that he has been dealing with this wound for 6 weeks, currently following wound care clinic at [facility], reports that he has been on antibiotics twice at this time and currently on Bactrim supposed to be completing it on Friday but he developed a fever at home and decided to come to the hospital. His fever at home was 99.5, he is also having chills, no significant pain in the foot but has constant drainage and malodorous discharge. Patient reports that he was feeling nauseous today had few episodes of vomiting, denies any abdominal pain diarrhea constipation, no urinary symptoms and no lower extremity edema. To the ED patient hemodynamically stable with vital significant for a temp of 102.9?, heart rate of 116, respiratory rate of 26, blood pressure 119/75, satting 94% on room air Labs are significant for WBC count of 7.8, hemoglobin of 13.2, a ESR 50, CRP of 2.46, BUN of 20, creatinine of 1.5 with a baseline around 1.2-1.3 Venous duplex shows no DVT demonstrated in the left lower extremity, Foot x-ray showed healed fractures and degenerative changes without fracture or overt evidence of osteomyelitis The patient was admitted for severe sepsis from an infected non-healing left foot plantar wound. Sepsis resolved with broad-spectrum antibiotic treatment. Acute kidney injury resolved with IV fluid hydration. He was not bacteremic, and there was no osteomyelitis per MRI. ID was consulted and antibiotic coverage was narrowed to ceftriaxone and metronidazole. Surgery was consulted, and no debridement was indicated; local wound care with silver calcium alginate and dry sterile dressings daily was recommended. The rajwinder has a history of prior angioplasty of the left posterior tibial artery 2019; he was demonstrated to have another left posterior tibal artery occlusion on arterial Doppler. Vascular Surgery was consulted, and the patient was taken to the OR 10/11/20 for diagnostic angiogram, which demonstrated the left lower extremity had good flow through the common femoral and profundus femoris. The left SFA was patent all the way to the popliteal; the popliteal was patent below knee vessels; the posterior tibial was most dominant and supplied all the way to the foot arch; anterior tibial and peroneal were present, somewhat smaller, but did go to the level of the ankle. No angioplasty was needed. He was discharged home to continue follow up with [facility] and should see his primary care doctor in 1 week and the vascular surgeon in 2 weeks. He was prescribed 10 days of cefuroxime and metronidazole. Diabetes was noted to be uncontrolled with A1c of 12.2. The importance of low-carbohydrate diet was discussed and he was counseled to consider getting referred for a continuous glucose monitor to help better control his blood sugar. Time Spent with Patient Time attestation: Total time spent providing and/or coordinating discharge services: 40 Discharge coordination time: Greater than 30 minutes Quality: Stroke Does the patient have a stroke diagnosis?: No Physical Exam Vital Signs: Vital Signs: Last Vital Signs Temp 98 F 10/11/20 10:05 Pulse 80 10/11/20 11:30 Resp 18 10/11/20 11:30 BP 126/73 10/11/20 11:30 Pulse Ox 95 10/11/20 11:00 Body Mass Index 45.3 Gen: in no acute distress HEENT: sclera anicteric, moist mucus membranes Neck: supple Lungs: clear to auscultation bilaterally Heart: regular rate and rhythm, no murmurs Abd: soft, obese non-tender, non-distended Ext: no edema Skin: L plantar ulcer, L 5th toe surgically absent, no bleeding from angiogram site Neuro: alert and oriented x3, dense neuropathy of feet Psych: appropriate affect DS: Data Data Completed and Pending Completed studies during hospitalization [Text1]: Laboratory Results WBC 5.5 X10*3/uL (4.8-10.8) 10/09/20 05:17 RBC 4.06 X10*6/uL (4.60-5.80) L 10/09/20 05:17 Hgb 11.9 g/dl (14.0-18.0) L 10/09/20 05:17 Hct 37.4 % (42-52) L 10/09/20 05:17 MCV 92.1 fL (80-98) 10/09/20 05:17 MCH 29.3 pg (27.0-33.0) 10/09/20 05:17 MCHC 31.8 g/dl (31.0-36.0) 10/09/20 05:17 RDW 13.6 % (11.0-16.0) 10/09/20 05:17 Plt Count 162 X10*3/uL (160-400) 10/09/20 05:17 MPV 10.4 fL (9.4-12.4) 10/09/20 05:17 Immature Gran % (Auto) 0.4 % (0.0-0.4) 10/08/20 05:36 Neut % (Auto) 69.7 % (45-73) 10/08/20 05:36 Lymph % (Auto) 9.3 % (20-40) L 10/08/20 05:36 Bertie % (Auto) 17.0 % (2-11) H 10/08/20 05:36 Eos % (Auto) 3.5 % (0-4) 10/08/20 05:36 Baso % (Auto) 0.1 % (0-2) 10/08/20 05:36 Lymph # (Auto) 0.7 X10*3/uL (1.2-4.9) L 10/08/20 05:36 Bertie # (Auto) 1.2 X10*3/uL (0.1-1.2) 10/08/20 05:36 Eos # (Auto) 0.3 X10*3/uL (0.0-0.4) 10/08/20 05:36 Baso # (Auto) 0.0 X10*3/uL (0.0-0.2) 10/08/20 05:36 Abs Immat Gran (auto) 0.03 X10*3/uL (0.00-0.03) 10/08/20 05:36 Absolute Neuts (auto) 5.0 X10*3/uL (2.0-8.3) 10/08/20 05:36 Absolute Nucleated RBC 0.000 X10*3/uL (0.0-0.012) 10/09/20 05:17 Nucleated RBC % (auto) 0.0 /100WBC (0.0-0.2) 10/09/20 05:17 ESR 50 MM/HR (0-15) H 10/07/20 15:39 PT 13.4 SEC (10.8-13.0) H 10/07/20 15:38 INR 1.1 (0.9-1.1) 10/07/20 15:38 APTT 30.6 SEC (24.1-38.0) 10/07/20 15:38 Sodium 135 mmol/L (135-145) 10/10/20 07:48 Potassium 5.3 mmol/L (3.3-5.1) H 10/10/20 07:48 Chloride 101 mmol/L (96-108) 10/10/20 07:48 Carbon Dioxide 26 mmol/L (22-29) 10/10/20 07:48 Anion Gap 13 (12-20) 10/10/20 07:48 BUN 16 mg/dL (9-16) 10/10/20 07:48 Creatinine 0.97 mg/dL (0.5-1.4) 10/10/20 07:48 Estim Creat Clear Calc 131.9 10/10/20 07:48 Estimated GFR > 60 10/10/20 07:48 POC Glucose 218 mg/dL (60-115) H 10/11/20 10:55 Random Glucose 247 mg/dL (60-115) H 10/10/20 07:48 Estimat Average Glucose 303 mg/dL 10/10/20 05:57 Hemoglobin A1c % 12.2 % 10/10/20 05:57 Lactic Acid 2.3 mmol/L (0.5-2.0) H* 10/07/20 15:39 Lactic Acid Fup @ 2Hr 1.8 mmol/L (0.5-2.0) 10/07/20 18:07 Calcium 8.9 mg/dL (8.4-10.2) 10/10/20 07:48 Magnesium 1.6 mg/dL (1.6-2.6) 10/07/20 15:38 Total Bilirubin 0.6 mg/dL (0.0-1.0) 10/07/20 15:38 Direct Bilirubin 0.3 mg/dL (0.0-0.5) 10/07/20 15:38 AST 28 U/L (5-37) 10/07/20 15:38 ALT 34 U/L (0-40) 10/07/20 15:38 Alkaline Phosphatase 81 U/L (39-117) 10/07/20 15:38 C-Reactive Protein 2.46 mg/dL (< or = 0.50) H 10/07/20 15:38 Total Protein 7.9 g/dL (6.5-8.0) 10/07/20 15:38 Albumin 4.3 g/dL (3.5-5.0) 10/07/20 15:38 Vancomycin Trough 13.2 mcg/mL (10.0-20.0) 10/09/20 16:10 COVID-19 (VIVEK) Negative (Negative) 10/07/20 15:38 COVID-19 Clin Com See Note 10/07/20 15:38 Impressions Foot X-Ray 10/07/20 15:06 IMPRESSION: Old healed fractures and degenerative changes without fracture or overt evidence for osteomyelitis. Venous Duplex 10/07/20 15:21 IMPRESSION: No DVT demonstrated in the left lower extremity. Duplex Scan Lower Extremity Artery 10/08/20 10:54 IMPRESSION: Bilateral vessel wall calcification and trifurcation disease. Occluded left posterior tibial artery and increased peak systolic velocity and abnormal waveform in the right posterior tibial artery. 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 Chronic healed fourth metatarsal fracture. No acute bone marrow signal abnormality. There is mild soft tissue irregularity along the lateral forefoot. No drainable fluid collection identified. Discharge Plan Discharge Patient Disposition: Home, Self-Care Discharge Diagnosis: severe sepsis from infected diabetic foot ulcer peripheral arterial disease acute kidney injury, resolved uncontrolled diet Referrals: Shreyas Da Silva MD [Primary Care Provider] - 1 Week Wilbur Caceres MD [Physician] - 2 Weeks Discharge Medications: New cefuroxime axetil 500 mg tablet 500 mg PO BID Qty: 20 RF: 0 metronidazole 500 mg tablet 500 mg PO TID Qty: 30 RF: 0 Continued glipizide 10 mg tablet 1 tab PO BID RF: 0 clopidogrel 75 mg tablet 1 tab PO DAILY RF: 0 (DME) FreeStyle Test Strip MISCELLANEOUS RF: 0 simvastatin 40 mg tablet 40 mg PO QPM RF: 0 metformin 1,000 mg tablet 1 tab PO BID RF: 0 gabapentin 300 mg capsule 1 cap PO TID RF: 0 lisinopril 2.5 mg tablet 1 tab PO DAILY RF: 0 Lantus Solostar U-100 Insulin 100 unit/mL (3 mL) insulin pen 80 unit subcut DAILY RF: 0 Discontinued sulfamethoxazole-trimethoprim 800-160 mg tablet 1 tab PO BID RF: 0 Discharge Orders: Discharge Order (Routine); Ordered 10/11/20 Ordered By: Krystle Schilling Diet: diabetic diet and other Activity on Discharge: low-carb Stand Alone Forms: Patient Portal Discharge page Activity Restrictions/Additional Instructions: wound care: silver calcium alginate and dry sterile dressings daily Care Plan Goals: resolution of infection, closing of ulcer Health Concerns: sepsis from infected diabetic foot ulcer peripheral arterial disease uncontrolled diabetes Plan of Treatment: take 2 antibiotics for 10 days: cefuroxime 500 mg twice daily metronidazole 500 mg three times daily [do not drink alcohol while taking this medication] follow up with your primary care doctor in 1 week follow up with Dr Caceres, the vascular surgeon, in 2 weeks continue clopidogrel [Plavix] follow a low-carbohydrate diet and consider getting a continuous glucose monitor for tighter blood sugar control Assessment: as above Patient Instructions: Diabetic Foot Ulcers (DC)
[2020-10-11] MEDS: Insulin Glargine,Hum.rec.anlog 100 UNIT/ML 10 ML VIAL 85 UNIT SUBCUT (12:07)
[2020-10-11] MEDS: Insulin Lispro 100 UNIT/ML 3 ML VIAL SUBCUT (12:07)
[2020-10-11] MEDS: cefTRIAXone sodium 1 GM in 0.9 % Sodium Chloride 50 ML IV (12:14)
--- NOTE | 2020-10-11 12:37 | PC.NURSE ---
Diabetic ulcer on left plantar foot was seen and dressing was changed. Patient is being discharged today and will continue going to the wound clinic.
== END 2020-10-11 13:36 | disposition home or self-care (01) | DRG 720 ==
LOC: HO.ED 15:53 → HO.EDOVER 22:39 → HO.IMC 23:22
PROVIDERS: Internal Medicine; Surgery Vascular Surgery; Admitting Provider Internal Medicine; Emergency Provider Emergency Medicine; PCP Internal Medicine; Visit Provider Family Medicine
PROC: B41DZZZ Fluoroscopy of Aorta and Bilateral Lower Extremity Arteries (ICD-10-PCS; principal; 2020-10-11 07:30)
DX: A41.9 Sepsis, unspecified organism (principal); N17.9 Acute kidney failure, unspecified; E11.42 Type 2 diabetes mellitus with diabetic polyneuropathy; E11.51 Type 2 diabetes mellitus with diabetic peripheral angiopathy without gangrene; E11.621 Type 2 diabetes mellitus with foot ulcer; L97.522 Non-pressure chronic ulcer of other part of left foot with fat layer exposed; G47.33 Obstructive sleep apnea (adult) (pediatric); E66.01 Morbid (severe) obesity due to excess calories; R65.20 Severe sepsis without septic shock; Z68.42 Body mass index [BMI] 45.0-49.9, adult; I70.245 Atherosclerosis of native arteries of left leg with ulceration of other part of foot; Z20.822 Contact with and (suspected) exposure to COVID-19; Z88.0 Allergy status to penicillin; Z79.4 Long term (current) use of insulin; Z79.02 Long term (current) use of antithrombotics/antiplatelets; Z79.899 Other long term (current) drug therapy
CPT/HCPCS: 36247; 36415; 73630; 73720; 75630; 76937; 80048; 80076; 80202; 82947; 83036; 83605; 83735; 85025; 85027; 85610; 85652; 85730; 86140; 87040; 87635; 93925; 93971; 99152; 99285; A9585; C1769; C1887; J0692; J0696; J2405; J3370

== ENCOUNTER 2020-12-22 07:08 | Outpatient (REF) | payer MEDICARE, SELFPAY ==
[2020-12-22 08:09] LABS: Alanine Aminotransferase 24 U/L (0-40); Alkaline Phosphatase 70 U/L (39-117); Anion Gap 13 (12-20); Aspartate Amino Transferase 18 U/L (5-37); Bilirubin Total 0.6 mg/dL (0.0-1.0); Blood Urea Nitrogen 17 mg/dL (9-16); Calcium 9.7 mg/dL (8.4-10.2); Carbon Dioxide 25 mmol/L (22-29); Chloride 104 mmol/L (96-108); Estimated Glomerular Filt Rate > 60; Glucose Random 194 mg/dL (60-115); Potassium 4.8 mmol/L (3.3-5.1); Sodium 137 mmol/L (135-145); Total Protein 7.1 g/dL (6.5-8.0)
[2020-12-22 10:04] LABS: Estimated Average Glucose 226 mg/dL; Hemoglobin A1c % 9.5 %
== END 2020-12-22 07:09 | disposition home or self-care (01) ==
LOC: HO.LAB 07:08
PROVIDERS: PCP Internal Medicine; Visit Provider Internal Medicine
DX: E11.9 Type 2 diabetes mellitus without complications (principal); I10 Essential (primary) hypertension; G47.33 Obstructive sleep apnea (adult) (pediatric)
CPT/HCPCS: 36415; 80053; 83036

== ENCOUNTER 2021-02-22 07:50 | Outpatient (REF) | payer MEDICARE, SELFPAY ==
[2021-02-22 09:06] LABS: Estimated Average Glucose 223 mg/dL; Hemoglobin A1c % 9.4 %
[2021-02-22 09:12] LABS: Alanine Aminotransferase 27 U/L (0-40); Albumin Level 4.1 g/dL (3.5-5.0); Alkaline Phosphatase 82 U/L (39-117); Anion Gap 11 (12-20); Aspartate Amino Transferase 23 U/L (5-37); Bilirubin Total 0.7 mg/dL (0.0-1.0); Blood Urea Nitrogen 20 mg/dL (9-16); Calcium 9.6 mg/dL (8.4-10.2); Carbon Dioxide 28 mmol/L (22-29); Chloride 104 mmol/L (96-108); Estimated Glomerular Filt Rate > 60; Glucose Random 190 mg/dL (60-115); Potassium 5.3 mmol/L (3.3-5.1); Sodium 138 mmol/L (135-145); Total Protein 7.5 g/dL (6.5-8.0)
== END 2021-02-22 07:51 | disposition home or self-care (01) ==
LOC: HO.LAB 07:50
PROVIDERS: PCP Internal Medicine; Visit Provider Internal Medicine
DX: E11.9 Type 2 diabetes mellitus without complications (principal); E78.00 Pure hypercholesterolemia, unspecified
CPT/HCPCS: 36415; 80053; 83036

== ENCOUNTER 2021-03-27 07:07 | Outpatient (REF) | payer MEDICARE, SELFPAY ==
[2021-03-27 08:16] LABS: Estimated Average Glucose 229 mg/dL; Hemoglobin A1c % 9.6 %
[2021-03-27 08:23] LABS: Anion Gap 15 (12-20); Blood Urea Nitrogen 16 mg/dL (9-16); Carbon Dioxide 27 mmol/L (22-29); Chloride 102 mmol/L (96-108); Estimated Glomerular Filt Rate > 60; Glucose Random 216 mg/dL (60-115); Potassium 5.4 mmol/L (3.3-5.1); Sodium 139 mmol/L (135-145)
== END 2021-03-27 07:08 | disposition home or self-care (01) ==
LOC: HO.LAB 07:07
PROVIDERS: PCP Internal Medicine; Visit Provider Internal Medicine
DX: I10 Essential (primary) hypertension (principal); E11.9 Type 2 diabetes mellitus without complications; G47.33 Obstructive sleep apnea (adult) (pediatric); Z79.4 Long term (current) use of insulin
CPT/HCPCS: 36415; 80048; 83036

== ENCOUNTER 2021-07-16 07:07 | Outpatient (REF) | payer MEDICARE, MEDICAID, SELFPAY ==
[2021-07-16 08:33] LABS: Estimated Average Glucose 243 mg/dL; Hemoglobin A1c % 10.1 %
[2021-07-16 08:44] LABS: Anion Gap 14 (12-20); Blood Urea Nitrogen 17 mg/dL (9-16); Calcium 9.3 mg/dL (8.4-10.2); Carbon Dioxide 27 mmol/L (22-29); Chloride 102 mmol/L (96-108); Estimated Glomerular Filt Rate > 60; Glucose Random 195 mg/dL (60-115); Potassium 4.7 mmol/L (3.3-5.1); Sodium 138 mmol/L (135-145)
== END 2021-07-16 07:08 | disposition home or self-care (01) ==
LOC: HO.LAB 07:07
PROVIDERS: PCP Internal Medicine; Visit Provider Internal Medicine
DX: E11.9 Type 2 diabetes mellitus without complications (principal); G47.33 Obstructive sleep apnea (adult) (pediatric); I10 Essential (primary) hypertension; R60.0 Localized edema
CPT/HCPCS: 36415; 80048; 83036

== ENCOUNTER 2021-10-12 10:44 | Outpatient (REF) | payer MEDICARE, SELFPAY ==
[2021-10-12 13:22] LABS: MANUAL DIFF FLAG NO
[2021-10-12 13:26] LABS: Basophils Percent Auto 0.4 % (0-2); Eosinophils Absolute Auto 0.8 X10*3/uL (0.0-0.4); Eosinophils Percent Auto 8.8 % (0-4); Hematocrit 41.6 % (42.0-52.0); Hemoglobin 13.3 g/dl (14.0-18.0); Imm Gran Abs Auto 0.04 X10*3/uL (0.00-0.03); Imm Gran Pct Auto 0.4 % (0.0-0.4); Lymphocytes Absolute Auto 2.1 X10*3/uL (1.2-4.9); Lymphocytes Percent Auto 22.4 % (20-40); Mean Corpuscular Hemoglobin 29.5 pg (27.0-33.0); Mean Corpuscular Volume 92.2 fL (80.0-98.0); Mean Platelet Volume 10.6 fL (9.4-12.4); Monocytes Absolute Auto 0.7 X10*3/uL (0.1-1.2); Monocytes Percent Auto 7.1 % (2-11); Neutrophils Absolute Auto 5.8 x10*3/uL (2.0-8.3); Neutrophils Percent Auto 60.9 % (45-73); Platelet Count 232 X10*3/uL (160-400); Red Blood Count 4.51 X10*6/uL (4.60-5.80); White Blood Count 9.5 X10*3/uL (4.8-10.8)
[2021-10-12 13:41] LABS: Alanine Aminotransferase 30 U/L (0-40); Albumin Level 4.1 g/dL (3.5-5.0); Alkaline Phosphatase 100 U/L (39-117); Anion Gap 17 (12-20); Aspartate Amino Transferase 23 U/L (5-37); Bilirubin Total 0.7 mg/dL (0.0-1.0); Blood Urea Nitrogen 19 mg/dL (9-16); Calcium 9.7 mg/dL (8.4-10.2); Carbon Dioxide 27 mmol/L (22-29); Chloride 95 mmol/L (96-108); Estimated Glomerular Filt Rate 56; Glucose Random 399 mg/dL (60-115); Potassium 5.2 mmol/L (3.3-5.1); Sodium 134 mmol/L (135-145); Total Protein 7.9 g/dL (6.5-8.0)
[2021-10-12 14:09] LABS: Estimated Average Glucose 283 mg/dL; Hemoglobin A1c % 11.5 %
== END 2021-10-12 10:45 | disposition home or self-care (01) ==
LOC: HO.10HDL 10:44
PROVIDERS: Visit Provider Internal Medicine
DX: E11.9 Type 2 diabetes mellitus without complications (principal); G47.33 Obstructive sleep apnea (adult) (pediatric); I73.9 Peripheral vascular disease, unspecified
CPT/HCPCS: 36415; 80053; 83036; 85025

== ENCOUNTER 2021-11-01 08:36 | Outpatient (RCR) | payer MEDICARE, MEDICAID, SELFPAY | END 2022-01-09 12:29 | disposition home or self-care (01) | LOC: HO.WCC 08:36 | PROVIDERS: PCP Internal Medicine; Visit Provider Surgery | DX: E11.621 Type 2 diabetes mellitus with foot ulcer (principal); L97.522 Non-pressure chronic ulcer of other part of left foot with fat layer exposed; E11.40 Type 2 diabetes mellitus with diabetic neuropathy, unspecified; E11.610 Type 2 diabetes mellitus with diabetic neuropathic arthropathy; Z89.422 Acquired absence of other left toe(s); Z87.891 Personal history of nicotine dependence | CPT/HCPCS: 11042; 29445; 97597; 99212 ==

== ENCOUNTER 2022-01-01 18:35 | Emergency (ER) | payer MEDICARE, MEDICAID, SELFPAY ==
--- NOTE | ~2022-01-01 | CT_ITS ---
EXAMINATION: CT ABDOMEN AND PELVIS WITHOUT CONTRAST CLINICAL INFORMATION: Bilateral flank pain COMPARISON: None TECHNIQUE: Multidetector volumetric imaging was performed from the superior aspect of the liver through the pubic symphysis. Sagittal and coronal reformatted images were obtained on the technologist's workstation. This CT examination was performed using dose optimization techniques as appropriate, variously including the following: *Automated exposure control *Adjustment of mA and/or kV according to patient size (this includes techniques or standardized protocols for targeted exams where dose is matched to indication/reason for exam; i.e. extremities or head) *Use of iterative reconstruction technique DLP: 1525 mGy-cm FINDINGS: LUNG BASES: Heart size normal. Marked coronary calcifications are present. No suspicious lung masses are lesions are seen. LIVER, GALLBLADDER, AND BILIARY TREE: The liver is enlarged measuring 26 cm in cephalocaudad dimension but demonstrates attenuation which is probably low although it is greater than the spleen. I suspect hepatic steatosis as there appears to be focal fatty sparing around the gallbladder (4:38). No focal hepatic lesion or biliary ductal dilatation is present. The gallbladder is unremarkable with no evidence of radiopaque gallstones, gallbladder wall thickening, or obvious pericholecystic inflammatory changes. PANCREAS: Unremarkable. SPLEEN: Mild splenomegaly with the spleen measuring a maximum of 13.7 cm. ADRENAL GLANDS: Unremarkable. KIDNEYS AND URETERS: The kidneys are normal in size, shape, and attenuation. No hydronephrosis, hydroureter, or calculi seen. No perinephric stranding. BLADDER: Unremarkable. GASTROINTESTINAL TRACT: The small and large bowel are unremarkable. The appendix is quite small but unremarkable. ABDOMINAL WALL: A small right inguinal hernia is seen. LYMPH NODES: No retroperitoneal lymphadenopathy. VASCULAR: Atherosclerotic changes are present in aorta with some minimal infrarenal aortic dilatation with the maximal dimension of only 2.7 cm. PELVIC VISCERA: The prostate and seminal vesicles are unremarkable. OSSEOUS STRUCTURES: Degenerative changes are noted throughout the spine with the most disc space narrowing at L4-L5 with vacuum phenomena. CT/CT abdomen pelvis wo IV con IMPRESSION: 1. A cause for the patient's bilateral flank pain has not been found. 2. No nephrolithiasis. 3. Markedly enlarged fatty liver with mild splenomegaly. Other incidental findings as described above Fleischner guidelines were followed.
[2022-01-01 20:17] LABS: MANUAL DIFF FLAG NO
[2022-01-01 20:19] LABS: Basophils Absolute Auto 0.1 X10*3/uL (0.0-0.2); Basophils Percent Auto 0.8 % (0-2); Eosinophils Absolute Auto 0.5 X10*3/uL (0.0-0.4); Eosinophils Percent Auto 5.4 % (0-4); Hematocrit 40.8 % (42.0-52.0); Hemoglobin 13.5 g/dl (14.0-18.0); Imm Gran Abs Auto 0.03 X10*3/uL (0.00-0.03); Imm Gran Pct Auto 0.3 % (0.0-0.4); Lymphocytes Absolute Auto 2.5 X10*3/uL (1.2-4.9); Lymphocytes Percent Auto 27.6 % (20-40); Mean Corpuscular HGB Conc 33.1 g/dl (31.0-36.0); Mean Corpuscular Hemoglobin 29.9 pg (27.0-33.0); Mean Corpuscular Volume 90.3 fL (80.0-98.0); Mean Platelet Volume 10.3 fL (9.4-12.4); Monocytes Absolute Auto 0.6 X10*3/uL (0.1-1.2); Monocytes Percent Auto 6.5 % (2-11); Neutrophils Absolute Auto 5.4 x10*3/uL (2.0-8.3); Neutrophils Percent Auto 59.4 % (45-73); Platelet Count 215 X10*3/uL (160-400); Red Blood Count 4.52 X10*6/uL (4.60-5.80); Red Cell Distribution Width 13.3 % (11.0-16.0); White Blood Count 9.1 X10*3/uL (4.8-10.8)
[2022-01-01 20:38] LABS: COVID-19 Test Negative (Negative); IDNOW Serial# 16C4AD1C
[2022-01-01 21:06] LABS: Alanine Aminotransferase 31 U/L (0-40); Albumin Level 4.2 g/dL (3.5-5.0); Alkaline Phosphatase 87 U/L (39-117); Anion Gap 17 (12-20); Aspartate Amino Transferase 24 U/L (5-37); Bilirubin Total 0.5 mg/dL (0.0-1.0); Blood Urea Nitrogen 17 mg/dL (9-16); Calcium 9.5 mg/dL (8.4-10.2); Carbon Dioxide 28 mmol/L (22-29); Chloride 96 mmol/L (96-108); Estimated Glomerular Filt Rate 52; Glucose Random 520 mg/dL (60-115); Lipase 57 U/L (8-78); Potassium 4.6 mmol/L (3.3-5.1); Sodium 136 mmol/L (135-145); Total Protein 8.2 g/dL (6.5-8.0)
[2022-01-01 22:29] VITALS: BP 153/80; PULSE 95; RESP 16; TEMP 37.5; O2SAT 95; BMI 45.4
== END 2022-01-02 04:14 | disposition left against medical advice (07) ==
PROVIDERS: Physician Assistant; Emergency Provider Emergency Medicine
DX: R10.9 Unspecified abdominal pain (principal); R50.9 Fever, unspecified; Z20.822 Contact with and (suspected) exposure to COVID-19; E11.9 Type 2 diabetes mellitus without complications; E66.01 Morbid (severe) obesity due to excess calories; Z68.42 Body mass index [BMI] 45.0-49.9, adult
CPT/HCPCS: 36415; 74176; 80053; 83690; 85025; 87635; 99281; 99284

== ENCOUNTER 2022-01-02 11:51 | Outpatient (REF) | payer MEDICARE, MEDICAID, SELFPAY ==
--- NOTE | ~2022-01-02 | XR_ITS ---
EXAMINATION: XR CERVICAL SPINE CLINICAL INFORMATION: Neck pain. COMPARISON: X-ray of the cervical spine December 2013 TECHNIQUE: 4 views of the cervical spine were obtained. FINDINGS: Exam is slightly limited as the cervicothoracic junction is obscured by overlying bone and soft tissues on the lateral projection which includes swimmer's view. There are no prevertebral soft tissue or bony abnormalities demonstrated. No compression fractures or subluxations are identified. Alignment is maintained at the atlanto-axial articulation. The disc spaces are preserved. No endplate changes are seen. The prevertebral soft tissues are normal. The foramina are patent. XR/XR cervical spine 3V IMPRESSION: 1. Unremarkable exam and unchanged. 2. Slightly limited as the cervicothoracic junction is obscured on the lateral view.
== END 2022-01-02 11:52 | disposition home or self-care (01) ==
LOC: HO.XRAY 11:51
PROVIDERS: PCP Internal Medicine; Visit Provider Internal Medicine
DX: M54.2 Cervicalgia (principal)
CPT/HCPCS: 72040

== ENCOUNTER → 2022-01-14 14:22 | Outpatient (BNVA) | payer MEDICARE, MEDICAID, SELFPAY | PROVIDERS: PCP Internal Medicine; Visit Provider Internal Medicine | DX: G47.33 Obstructive sleep apnea (adult) (pediatric) (principal); J98.4 Other disorders of lung; E66.01 Morbid (severe) obesity due to excess calories | CPT/HCPCS: 99212 ==

== ENCOUNTER 2022-04-03 11:55 | Outpatient (REF) | payer MEDICARE, MEDICAID, SELFPAY ==
[2022-04-03 13:54] LABS: MANUAL DIFF FLAG NO
[2022-04-03 14:00] LABS: Basophils Absolute Auto 0.1 X10*3/uL (0.0-0.2); Basophils Percent Auto 0.9 % (0-2); Eosinophils Absolute Auto 0.5 X10*3/uL (0.0-0.4); Eosinophils Percent Auto 5.6 % (0-4); Hematocrit 40.7 % (42.0-52.0); Hemoglobin 13.4 g/dl (14.0-18.0); Imm Gran Abs Auto 0.03 X10*3/uL (0.00-0.03); Imm Gran Pct Auto 0.3 % (0.0-0.4); Lymphocytes Percent Auto 20.4 % (20-40); Mean Corpuscular HGB Conc 32.9 g/dl (31.0-36.0); Mean Corpuscular Hemoglobin 29.7 pg (27.0-33.0); Mean Corpuscular Volume 90.2 fL (80.0-98.0); Mean Platelet Volume 10.7 fL (9.4-12.4); Monocytes Absolute Auto 0.5 X10*3/uL (0.1-1.2); Monocytes Percent Auto 5.7 % (2-11); Neutrophils Absolute Auto 6.4 x10*3/uL (2.0-8.3); Neutrophils Percent Auto 67.1 % (45-73); Platelet Count 196 X10*3/uL (160-400); Red Blood Count 4.51 X10*6/uL (4.60-5.80); Red Cell Distribution Width 13.2 % (11.0-16.0); White Blood Count 9.5 X10*3/uL (4.8-10.8)
[2022-04-03 14:40] LABS: Estimated Average Glucose 289 mg/dL; Hemoglobin A1c % 11.7 %
[2022-04-03 15:12] LABS: Creatinine Urine 67.84 mg/dL; Microalbum/Creatinine Ratio Ur 73.7 ug/mg cr
[2022-04-03 15:18] LABS: Alanine Aminotransferase 27 U/L (0-40); Albumin Level 4.1 g/dL (3.5-5.0); Alkaline Phosphatase 85 U/L (39-117); Anion Gap 17 (12-20); Aspartate Amino Transferase 25 U/L (5-37); Bilirubin Total 0.9 mg/dL (0.0-1.0); Blood Urea Nitrogen 18 mg/dL (9-16); Calcium 9.6 mg/dL (8.4-10.2); Carbon Dioxide 27 mmol/L (22-29); Chloride 98 mmol/L (96-108); Estimated Glomerular Filt Rate > 60; Glucose Random 422 mg/dL (60-115); Potassium 4.8 mmol/L (3.3-5.1); Sodium 137 mmol/L (135-145); Total Protein 7.5 g/dL (6.5-8.0)
== END 2022-04-03 11:56 | disposition home or self-care (01) ==
LOC: HO.10HDL 11:55
PROVIDERS: Visit Provider Internal Medicine
DX: E11.9 Type 2 diabetes mellitus without complications (principal); N18.9 Chronic kidney disease, unspecified; G47.33 Obstructive sleep apnea (adult) (pediatric)
CPT/HCPCS: 36415; 80053; 82043; 83036; 85025

== ENCOUNTER 2022-07-17 10:26 | Outpatient (REF) | payer MEDICARE, MEDICAID, SELFPAY ==
[2022-07-17 13:34] LABS: MANUAL DIFF FLAG NO
[2022-07-17 13:39] LABS: Basophils Absolute Auto 0.1 X10*3/uL (0.0-0.2); Basophils Percent Auto 0.7 % (0-2); Eosinophils Absolute Auto 0.5 X10*3/uL (0.0-0.4); Eosinophils Percent Auto 5.8 % (0-4); Hematocrit 39.2 % (42.0-52.0); Hemoglobin 13.1 g/dl (14.0-18.0); Imm Gran Abs Auto 0.03 X10*3/uL (0.00-0.03); Imm Gran Pct Auto 0.4 % (0.0-0.4); Lymphocytes Absolute Auto 2.3 X10*3/uL (1.2-4.9); Lymphocytes Percent Auto 28.3 % (20-40); Mean Corpuscular HGB Conc 33.4 g/dl (31.0-36.0); Mean Corpuscular Hemoglobin 30.7 pg (27.0-33.0); Mean Corpuscular Volume 91.8 fL (80.0-98.0); Mean Platelet Volume 11.1 fL (9.4-12.4); Monocytes Absolute Auto 0.6 X10*3/uL (0.1-1.2); Monocytes Percent Auto 6.8 % (2-11); Neutrophils Absolute Auto 4.8 x10*3/uL (2.0-8.3); Platelet Count 194 X10*3/uL (160-400); Red Blood Count 4.27 X10*6/uL (4.60-5.80); Red Cell Distribution Width 13.1 % (11.0-16.0); White Blood Count 8.3 X10*3/uL (4.8-10.8)
[2022-07-17 13:54] LABS: Alanine Aminotransferase 27 U/L (0-40); Alkaline Phosphatase 83 U/L (39-117); Anion Gap 13 (12-20); Aspartate Amino Transferase 21 U/L (5-37); Blood Urea Nitrogen 11 mg/dL (9-16); Calcium 9.1 mg/dL (8.4-10.2); Carbon Dioxide 27 mmol/L (22-29); Chloride 103 mmol/L (96-108); Estimated Glomerular Filt Rate > 60; Glucose Random 230 mg/dL (60-115); Iron 80 mcg/dL (45-160); Magnesium 1.6 mg/dL (1.6-2.6); Percent Iron Saturation 30 % (15-50); Potassium 4.7 mmol/L (3.3-5.1); Sodium 138 mmol/L (135-145); Total Iron Binding Capacity 271 mcg/dL (228-428); Total Protein 7.3 g/dL (6.5-8.0); Unsaturated Iron Binding 191 ug/dL
[2022-07-17 14:05] LABS: Estimated Average Glucose 324 mg/dL; Hemoglobin A1c % 12.9 %
== END 2022-07-17 10:27 | disposition home or self-care (01) ==
LOC: HO.10HDL 10:26
PROVIDERS: Visit Provider Internal Medicine
DX: E11.9 Type 2 diabetes mellitus without complications (principal); G62.9 Polyneuropathy, unspecified
CPT/HCPCS: 36415; 80053; 83036; 83540; 83735; 85025

== ENCOUNTER 2022-09-30 17:52 | Emergency (ER) | payer MEDICARE, MEDICAID, SELFPAY ==
--- NOTE | ~2022-09-30 | CT_ITS ---
EXAMINATION: CT ABDOMEN AND PELVIS WITH CONTRAST CLINICAL INFORMATION: abd pain COMPARISON: 01/01/2022 TECHNIQUE: Multidetector volumetric imaging was performed from the superior aspect of the liver through the pubic symphysis following administration of 100 mL Omnipaque 300 intravenous contrast. Sagittal and coronal reformatted images were obtained on the technologist workstation.. This CT examination was performed using dose optimization techniques as appropriate, variously including the following: *Automated exposure control *Adjustment of mA and/or kV according to patient size (this includes techniques or standardized protocols for targeted exams where dose is matched to indication/reason for exam; i.e. extremities or head) *Use of iterative reconstruction technique DLP: 1166 mGy-cm FINDINGS: LUNG BASES: The visualized lung bases are unremarkable. Extensive coronary artery calcification again noted LIVER, GALLBLADDER, AND BILIARY TREE: Mild diffuse fatty infiltration of the liver but no focal hepatic lesions seen. The gallbladder is unremarkable with no evidence of radiopaque gallstones, gallbladder wall thickening, or obvious pericholecystic inflammatory changes. PANCREAS: Unremarkable. SPLEEN: Unremarkable. ADRENAL GLANDS: Unremarkable. KIDNEYS AND URETERS: The kidneys are normal in size, shape, and attenuation. No hydronephrosis, hydroureter, or calculi seen. No perinephric stranding. BLADDER: Decompressed but otherwise unremarkable GASTROINTESTINAL TRACT: A few scattered colonic diverticula are seen but no colonic wall thickening to suggest diverticulitis the appendix is grossly unremarkable where seen. Visualized small bowel grossly unremarkable ABDOMINAL WALL: Fat-containing left flank hernia similar to the prior study. Likely prior right inguinal hernia repair similar in appearance to the prior study. LYMPHOVASCULAR STRUCTURES: Vascular calcification within the abdominal aortic system. No bulky retroperitoneal or mesenteric adenopathy PELVIC VISCERA: Unremarkable. OSSEOUS STRUCTURES: Mild multilevel degenerative changes in the spine CT/CT abdomen pelvis w IV con IMPRESSION: Chronic appearing changes similar to the 01/01/2022 study. I do not appreciate any acute intra-abdominal process.
[2022-09-30 18:34] VITALS: BP 151/91; PULSE 97; RESP 18; TEMP 36.4; O2SAT 95; BMI 46.5
--- NOTE | 2022-09-30 18:34 | ED.NAVMDI ---
HPI - Nausea/Vomiting/Diarrhea General Chief complaint: Nausea/Vomiting/Diarrhea Stated complaint: Diarrhea Time Seen by Provider: 09/30/22 19:54 Related Data Home Medications Medication Instructions Recorded Confirmed blood sugar diagnostic (FreeStyle 10/07/20 10/07/20 Test strips) clopidogrel 75 mg tablet 1 tab PO DAILY 10/07/20 10/07/20 glipizide 10 mg tablet 1 tab PO BID 10/07/20 10/07/20 insulin glargine 100 unit/mL (3 80 unit subcut DAILY 10/07/20 10/07/20 mL) subcutaneous pen (Lantus Solostar U-100 Insulin) lisinopril 2.5 mg tablet 1 tab PO DAILY 10/07/20 10/07/20 metformin 1,000 mg tablet 1 tab PO BID 10/07/20 10/07/20 simvastatin 40 mg tablet 40 mg PO QPM 10/07/20 10/07/20 gabapentin 300 mg capsule 600 mg PO TID 01/14/22 Allergies Allergy/AdvReac Type Severity Reaction Status Date / Time penicillin G Allergy Unknown Unknown Verified 09/30/22 18:34 [facility] Past Medical History 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 Fever Morbid obesity Nocturnal hypoxemia Non-healing wound RIGOBERTO (obstructive sleep apnea) PAD (peripheral artery disease) Restrictive lung disease Sepsis Social History Social History Household Members: Family Do you presently have visiting nurse or other home services: No Alcohol intake: current Alcohol intake frequency: holidays/special occasions only Patient Tobacco Use Status: Former Tobacco user Smoked in Last 30 Days: No Second Hand Smoke Exposure: No Use of substances other than those prescribed or required for medical reasons: No Advance Directives: No Advance Directives Information Provided: No service: No Physical Exam Vital Signs: Vital Signs: Last Vital Signs Temp 97.5 F 09/30/22 20:01 Pulse 87 09/30/22 20:01 Resp 18 09/30/22 20:01 BP 138/79 09/30/22 20:01 Pulse Ox 93 09/30/22 20:01 O2 Del Method Room Air 09/30/22 20:01 BMI result Body Mass Index 46.5 Course Course Course Narrative: RME: 56yo M w/PMHx restrictive lung dz, obesity, RIGOBERTO, DM, c/o watery diarrhea x2 weeks. Denies brbpr or melena. denies recent abx, abdominal pain. Took Imodium with little relief Labs, UA, stool studies including C diff ordered Full HPI, ROS and PE to be performed by primary ED provider. Medications Administered Discontinued Medications Generic Name Dose Route Start Last Admin Trade Name Freq PRN Reason Stop Dose Admin Sodium Chloride 1,000 mls @ 999 mls/hr 09/30/22 20:45 09/30/22 21:16 Ns IV 09/30/22 21:45 999 mls/hr .Q1H1M MICHAEL Administration Insulin Human Regular 5 unit 09/30/22 20:41 09/30/22 21:14 Insulin Regular, Human 100 Unit/Ml 3 Ml Vial IVPUSH 09/30/22 20:42 5 unit ONCE ONE Administration Iohexol 100 ml 09/30/22 21:02 09/30/22 21:03 Iohexol 350 Mg/Ml 100 Ml Infus..Btl IV 09/30/22 21:03 100 ml ONCE ONE Administration Medical Decision Making Lab Data 09/30/22 18:43 09/30/22 18:43 Labs: Lab Results 09/30/22 09/30/22 09/30/22 Range/Units 18:43 18:43 21:05 WBC 12.0 H (4.8-10.8) X10*3/uL RBC 4.35 L (4.60-5.80) X10*6/uL Hgb 13.0 L (14.0-18.0) g/dl Hct 38.8 L (42.0-52.0) % MCV 89.2 (80.0-98.0) fL MCH 29.9 (27.0-33.0) pg MCHC 33.5 (31.0-36.0) g/dl RDW 13.3 (11.0-16.0) % Plt Count 210 (160-400) X10*3/uL MPV 10.5 (9.4-12.4) fL Immature Gran % (Auto) 0.3 (0.0-0.4) % Neut % (Auto) 59.2 (45-73) % Lymph % (Auto) 24.0 (20-40) % [place] % (Auto) 6.4 (2-11) % Eos % (Auto) 9.8 H (0-4) % Baso % (Auto) 0.3 (0-2) % Lymph # (Auto) 2.9 (1.2-4.9) X10*3/uL [place] # (Auto) 0.8 (0.1-1.2) X10*3/uL Eos # (Auto) 1.2 H (0.0-0.4) X10*3/uL Baso # (Auto) 0.0 (0.0-0.2) X10*3/uL Abs Immat Gran (auto) 0.04 H (0.00-0.03) X10*3/uL Absolute Neuts (auto) 7.1 (2.0-8.3) x10*3/uL Absolute Nucleated RBC 0.000 (0.0-0.012) X10*3/uL Nucleated RBC % (auto) 0.0 (0.0-0.2) /100WBC Sodium 139 (135-145) mmol/L Potassium 4.2 (3.3-5.1) mmol/L Chloride 103 (96-108) mmol/L Carbon Dioxide 26 (22-29) mmol/L Anion Gap 14 (12-20) BUN 14 (9-16) mg/dL Creatinine 1.13 (0.5-1.4) mg/dL Estim Creat Clear Calc 113.7 Estimated GFR > 60 Random Glucose 349 H (60-115) mg/dL Calcium 9.6 (8.4-10.2) mg/dL Magnesium 1.5 L (1.6-2.6) mg/dL Total Bilirubin 0.8 (0.0-1.0) mg/dL Direct Bilirubin 0.2 (0.0-0.5) mg/dL AST 17 (5-37) U/L ALT 24 (0-40) U/L Alkaline Phosphatase 87 (39-117) U/L Total Protein 7.4 (6.5-8.0) g/dL Albumin 3.9 (3.5-5.0) g/dL Lipase 93 H (8-78) U/L Urine Color Yellow Urine Appearance Clear Urine pH 5.5 (5.0-9.0) Ur Specific [place] >= 1.030 H (1.005-1.025) Urine Protein Trace (Neg-Trace) mg/dL Urine Glucose (UA) >=1000 H (Negative) mg/dL Urine Ketones Trace (Negative) mg/dL Urine Blood Negative (Negative) Urine Nitrite Negative (Negative) Ur Leukocyte Esterase Negative (Negative) Urine RBC 0-2 (0-2) /HPF Urine WBC 0-5 (0-5) /HPF Ur Squamous Epith Cells 0-2 (0-2) /HPF Urine Bacteria None Seen (None Seen) Hyaline Casts 0-2 (0-2) /LPF Discharge Plan Discharge Clinical Impression: Diarrhea Patient Disposition: Home, Self-Care Instructions: Acute Diarrhea (ED) Prescriptions: No Action glipizide 10 mg tablet 1 tab PO BID clopidogrel 75 mg tablet 1 tab PO DAILY (DME) FreeStyle Test Strip MISCELLANEOUS simvastatin 40 mg tablet 40 mg PO QPM metformin 1,000 mg tablet 1 tab PO BID lisinopril 2.5 mg tablet 1 tab PO DAILY Lantus Solostar U-100 Insulin 100 unit/mL (3 mL) insulin pen 80 unit subcut DAILY gabapentin 300 mg capsule 600 mg PO TID Referrals: Shreyas Da Silva MD [Primary Care Provider] - 10/02/22 Interventions: ED Discharge Assessment Last Done: 09/30/22 22:58 Discharge Date/Time: 09/30/22 22:59
[2022-09-30 18:52] LABS: MANUAL DIFF FLAG NO
[2022-09-30 19:07] LABS: Alanine Aminotransferase 24 U/L (0-40); Albumin Level 3.9 g/dL (3.5-5.0); Alkaline Phosphatase 87 U/L (39-117); Anion Gap 14 (12-20); Aspartate Amino Transferase 17 U/L (5-37); Bilirubin Direct 0.2 mg/dL (0.0-0.5); Bilirubin Total 0.8 mg/dL (0.0-1.0); Blood Urea Nitrogen 14 mg/dL (9-16); Calcium 9.6 mg/dL (8.4-10.2); Carbon Dioxide 26 mmol/L (22-29); Chloride 103 mmol/L (96-108); Creatinine Clr Calc Pharmacy 113.7; Estimated Glomerular Filt Rate > 60; Glucose Random 349 mg/dL (60-115); Lipase 93 U/L (8-78); Magnesium 1.5 mg/dL (1.6-2.6); Potassium 4.2 mmol/L (3.3-5.1); Sodium 139 mmol/L (135-145); Total Protein 7.4 g/dL (6.5-8.0)
[2022-09-30 19:10] LABS: Basophils Percent Auto 0.3 % (0-2); Eosinophils Absolute Auto 1.2 X10*3/uL (0.0-0.4); Eosinophils Percent Auto 9.8 % (0-4); Hematocrit 38.8 % (42.0-52.0); Imm Gran Abs Auto 0.04 X10*3/uL (0.00-0.03); Imm Gran Pct Auto 0.3 % (0.0-0.4); Lymphocytes Absolute Auto 2.9 X10*3/uL (1.2-4.9); Mean Corpuscular HGB Conc 33.5 g/dl (31.0-36.0); Mean Corpuscular Hemoglobin 29.9 pg (27.0-33.0); Mean Corpuscular Volume 89.2 fL (80.0-98.0); Mean Platelet Volume 10.5 fL (9.4-12.4); Monocytes Absolute Auto 0.8 X10*3/uL (0.1-1.2); Monocytes Percent Auto 6.4 % (2-11); Neutrophils Absolute Auto 7.1 x10*3/uL (2.0-8.3); Neutrophils Percent Auto 59.2 % (45-73); Platelet Count 210 X10*3/uL (160-400); Red Blood Count 4.35 X10*6/uL (4.60-5.80); Red Cell Distribution Width 13.3 % (11.0-16.0)
[2022-09-30 20:01] VITALS: BP 138/79; PULSE 87; RESP 18; TEMP 36.4; O2SAT 93
--- NOTE | 2022-09-30 20:46 | ED_ITS ---
HPI - Nausea/Vomiting/Diarrhea General Chief complaint: Nausea/Vomiting/Diarrhea Stated complaint: Diarrhea Time Seen by Provider: 09/30/22 19:54 History of Present Illness HPI Narrative: Patient is a 56-year-old male presents today with having diarrhea has been ongoing for about 2 weeks. Initially had some nausea associated with it now symptom has improved. Continue to have brown stool that is loose. Patient claims that the diarrhea has improved to a pasty kind of consistency. There is no fever no chills. Minimal abdominal pain. Patient is from home. No coughing or congestion or history symptom. Positive history diabetes. Positive history of peripheral vascular disease status post stents. No coughing or congestion or upper respiratory symptoms. No blood in stool. Related Data Home Medications Medication Instructions Recorded Confirmed blood sugar diagnostic (FreeStyle 10/07/20 10/07/20 Test strips) clopidogrel 75 mg tablet 1 tab PO DAILY 10/07/20 10/07/20 glipizide 10 mg tablet 1 tab PO BID 10/07/20 10/07/20 insulin glargine 100 unit/mL (3 80 unit subcut DAILY 10/07/20 10/07/20 mL) subcutaneous pen (Lantus Solostar U-100 Insulin) lisinopril 2.5 mg tablet 1 tab PO DAILY 10/07/20 10/07/20 metformin 1,000 mg tablet 1 tab PO BID 10/07/20 10/07/20 simvastatin 40 mg tablet 40 mg PO QPM 10/07/20 10/07/20 gabapentin 300 mg capsule 600 mg PO TID 01/14/22 Allergies Allergy/AdvReac Type Severity Reaction Status Date / Time penicillin G Allergy Unknown Unknown Verified 09/30/22 18:34 Review of Systems Review of Systems: Positive vomiting diarrhea Yes all other systems are reviewed and are negative PMFSH Past Medical History Attestation statement: The following information was validated with the patient. 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 Fever Morbid obesity Nocturnal hypoxemia Non-healing wound RIGOBERTO (obstructive sleep apnea) PAD (peripheral artery disease) Restrictive lung disease Sepsis Social History Social History Household Members: Family Do you presently have visiting nurse or other home services: No Alcohol intake: current Alcohol intake frequency: holidays/special occasions only Patient Tobacco Use Status: Former Tobacco user Smoked in Last 30 Days: No Second Hand Smoke Exposure: No Use of substances other than those prescribed or required for medical reasons: No Advance Directives: No Advance Directives Information Provided: No service: No Physical Exam Vital Signs: Vital Signs: Last Vital Signs Temp 97.5 F 09/30/22 20:01 Pulse 87 09/30/22 20:01 Resp 18 09/30/22 20:01 BP 138/79 09/30/22 20:01 Pulse Ox 93 09/30/22 20:01 O2 Del Method Room Air 09/30/22 20:01 BMI result Body Mass Index 46.5 Appearance: Alert. Oriented X3. No acute distress. Eyes: Pupils equal, round and reactive to light. ENT: Pharynx normal. Neck: Normal inspection. Neck supple. No lymph nodes noted. No crepitus CVS: Normal heart rate and rhythm. Pulses normal. Normal S1 and S2 Respiratory: No respiratory distress. Breath sounds normal. No Wheezing. No ra les Abdomen: Soft and nontender. No rigidity. No distention. good BS x4 Skin: Skin warm and dry. Normal skin color. Normal skin turgor. Extremities: No lower extremity edema. Neurovascular intact to all extremities. No Lacerations. No Rash Neuro: Oriented X 3. No motor deficit. No sensory deficit. Moving all extermities. No slurred speech Medications Administered Discontinued Medications Generic Name Dose Route Start Last Admin Trade Name Freq PRN Reason Stop Dose Admin Sodium Chloride 1,000 mls @ 999 mls/hr 09/30/22 20:45 09/30/22 21:16 Ns IV 09/30/22 21:45 999 mls/hr .Q1H1M MICHAEL Administration Insulin Human Regular 5 unit 09/30/22 20:41 09/30/22 21:14 Insulin Regular, Human 100 Unit/Ml 3 Ml Vial IVPUSH 09/30/22 20:42 5 unit ONCE ONE Administration Iohexol 100 ml 09/30/22 21:02 09/30/22 21:03 Iohexol 350 Mg/Ml 100 Ml Infus..Btl IV 09/30/22 21:03 100 ml ONCE ONE Administration Medical Decision Making Medical Decision Making MDM Narrative: Patient presents today with having loose stool generalized malaise diarrhea. The hemoglobin is 13 white count is 12. Patient's urine was grossly negative for any acute evidence of infection. CT scan of the abdomen pelvis was done. No obstruction noted. No abscess no perforation no evidence of diverticulitis. Patient well-appearing. Repeat abdominal exam is soft nontender. Will discharge patient home. Differential Diagnosis Differential Diagnoses: The differential diagnosis associated with the presentation includes Diarrhea, loose stool, obstruction, abscess, appendicitis Lab Data MDM Lab Attestation statement: I reviewed the patient's lab results. 09/30/22 18:43 09/30/22 18:43 Labs: Lab Results 09/30/22 09/30/22 09/30/22 Range/Units 18:43 18:43 21:05 WBC 12.0 H (4.8-10.8) X10*3/uL RBC 4.35 L (4.60-5.80) X10*6/uL Hgb 13.0 L (14.0-18.0) g/dl Hct 38.8 L (42.0-52.0) % MCV 89.2 (80.0-98.0) fL MCH 29.9 (27.0-33.0) pg MCHC 33.5 (31.0-36.0) g/dl RDW 13.3 (11.0-16.0) % Plt Count 210 (160-400) X10*3/uL MPV 10.5 (9.4-12.4) fL Immature Gran % (Auto) 0.3 (0.0-0.4) % Neut % (Auto) 59.2 (45-73) % Lymph % (Auto) 24.0 (20-40) % Cameron % (Auto) 6.4 (2-11) % Eos % (Auto) 9.8 H (0-4) % Baso % (Auto) 0.3 (0-2) % Lymph # (Auto) 2.9 (1.2-4.9) X10*3/uL Cameron # (Auto) 0.8 (0.1-1.2) X10*3/uL Eos # (Auto) 1.2 H (0.0-0.4) X10*3/uL Baso # (Auto) 0.0 (0.0-0.2) X10*3/uL Abs Immat Gran (auto) 0.04 H (0.00-0.03) X10*3/uL Absolute Neuts (auto) 7.1 (2.0-8.3) x10*3/uL Absolute Nucleated RBC 0.000 (0.0-0.012) X10*3/uL Nucleated RBC % (auto) 0.0 (0.0-0.2) /100WBC Sodium 139 (135-145) mmol/L Potassium 4.2 (3.3-5.1) mmol/L Chloride 103 (96-108) mmol/L Carbon Dioxide 26 (22-29) mmol/L Anion Gap 14 (12-20) BUN 14 (9-16) mg/dL Creatinine 1.13 (0.5-1.4) mg/dL Estim Creat Clear Calc 113.7 Estimated GFR > 60 Random Glucose 349 H (60-115) mg/dL Calcium 9.6 (8.4-10.2) mg/dL Magnesium 1.5 L (1.6-2.6) mg/dL Total Bilirubin 0.8 (0.0-1.0) mg/dL Direct Bilirubin 0.2 (0.0-0.5) mg/dL AST 17 (5-37) U/L ALT 24 (0-40) U/L Alkaline Phosphatase 87 (39-117) U/L Total Protein 7.4 (6.5-8.0) g/dL Albumin 3.9 (3.5-5.0) g/dL Lipase 93 H (8-78) U/L Urine Color Yellow Urine Appearance Clear Urine pH 5.5 (5.0-9.0) Ur Specific [place] >= 1.030 H (1.005-1.025) Urine Protein Trace (Neg-Trace) mg/dL Urine Glucose (UA) >=1000 H (Negative) mg/dL Urine Ketones Trace (Negative) mg/dL Urine Blood Negative (Negative) Urine Nitrite Negative (Negative) Ur Leukocyte Esterase Negative (Negative) Urine RBC 0-2 (0-2) /HPF Urine WBC 0-5 (0-5) /HPF Ur Squamous Epith Cells 0-2 (0-2) /HPF Urine Bacteria None Seen (None Seen) Hyaline Casts 0-2 (0-2) /LPF Radiology Impression Discussion of test interpretation with radiology: I have reviewed the radiologist's reading. External Record Review External record reviewed: Inpatient record Chronic Conditions Patient?s care impacted by: Diabetes Discharge Plan Discharge Clinical Impression: Diarrhea Patient Disposition: Home, Self-Care Instructions: Acute Diarrhea (ED) Prescriptions: No Action glipizide 10 mg tablet 1 tab PO BID clopidogrel 75 mg tablet 1 tab PO DAILY (DME) FreeStyle Test Strip MISCELLANEOUS simvastatin 40 mg tablet 40 mg PO QPM metformin 1,000 mg tablet 1 tab PO BID lisinopril 2.5 mg tablet 1 tab PO DAILY Lantus Solostar U-100 Insulin 100 unit/mL (3 mL) insulin pen 80 unit subcut DAILY gabapentin 300 mg capsule 600 mg PO TID Referrals: Shreyas Da Silva MD [Primary Care Provider] - 10/02/22
[2022-09-30] MEDS: iohexoL 350 MG/ML 100 ML INFUS..BTL IV (21:03)
[2022-09-30 21:12] LABS: Appearance Urine Clear; Color Urine Yellow; Glucose Urine UA >=1000 mg/dL (Negative); Leukocyte Esterase Urine Negative (Negative); Nitrite Urine Negative (Negative); PH 5.5 (5.0-9.0); Specific Gravity - Urine >= 1.030 (1.005-1.025); UMIC TRIGGER UACC YES; Urine Blood Negative (Negative); Urine Ketones Trace mg/dL (Negative); Urine Protein Trace mg/dL (Neg-Trace)
[2022-09-30] MEDS: Insulin Regular, Human 100 UNIT/ML 3 ML VIAL IVPUSH (21:14)
[2022-09-30 21:15] LABS: Bacteria Urine None Seen (None Seen); Hyaline Casts Urine 0-2 /LPF (0-2); RBC Urine 0-2 /HPF (0-2); Squamous Epithelial Cell Urine 0-2 /HPF (0-2); WBC Urine 0-5 /HPF (0-5)
[2022-09-30] MEDS: 0.9 % Sodium Chloride 1,000 ML 999 ML IV (21:16)
== END 2022-09-30 22:59 | disposition home or self-care (01) ==
PROVIDERS: Physician Assistant; Emergency Provider Emergency Medicine Emergency Medical Services; PCP Internal Medicine
DX: R19.7 Diarrhea, unspecified (principal); E11.9 Type 2 diabetes mellitus without complications; E66.01 Morbid (severe) obesity due to excess calories; Z68.42 Body mass index [BMI] 45.0-49.9, adult; G47.33 Obstructive sleep apnea (adult) (pediatric)
CPT/HCPCS: 36415; 74177; 80048; 80076; 81001; 83690; 83735; 85025; 96374; 99284; Q9967

== ENCOUNTER 2022-11-15 | Outpatient (REF) | payer MEDICARE, MEDICAID, SELFPAY ==
[2022-11-15 15:12] LABS: Glucose Random 85 mg/dL (60-115)
[2022-11-15 15:16] LABS: Estimated Average Glucose 243 mg/dL; Hemoglobin A1c % 10.1 %
== END 2022-11-15 00:01 | disposition home or self-care (01) ==
LOC: HO.LAB
PROVIDERS: Visit Provider Physician Assistant Surgical
DX: E11.65 Type 2 diabetes mellitus with hyperglycemia (principal); E66.9 Obesity, unspecified; I10 Essential (primary) hypertension; Z68.41 Body mass index [BMI] 40.0-44.9, adult
CPT/HCPCS: 36415; 82947; 83036; 99453

== ENCOUNTER 2022-11-15 13:30 | Outpatient (AMB) | payer MEDICARE, MEDICAID, SELFPAY ==
--- NOTE | 2022-11-15 14:26 | HO.OFFWMMET ---
Intake VS Expanded 11/15/22 14:51 Height 6 ft Weight 329 lb BMI 44.6 BP 133/65 Blood Pressure Location Rt brachial Blood Pressure Position Sitting Pulse 87 Pulse Source Pulse Oximeter Temp 98.2 F Temperature Source Temporal Artery Scan Pulse Oximetry 97 Oxygen Delivery Method Room Air Body Fat 127.2 Body Fat Percentage 38.7 Free Fat Mass 201.8 Muscle Mass 192 Visceral Mass 26.0 Water Mass 154.6 BMR 2,853 Intake Visit Reasons: (OV) metabolic group clinic Allergies penicillin G Allergy (Unknown, Verified 09/30/22 18:34) Unknown HPI HPI Comments History of Present Illness Details This is a 57 year old male who presents for metabolic clinic. They are being followed for obesity and related conditions, including diabetes and hypertension. Initial weight upon presentation on 11/15/22 was 329 pounds with a BMI of 44.6. Patient reports he is interested in the metabolic clinic and hopes to reduce weight and reliance on medications for his DM. 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 Fever Morbid obesity Nocturnal hypoxemia Non-healing wound RIGOBERTO (obstructive sleep apnea) PAD (peripheral artery disease) Restrictive lung disease Sepsis Social History Household Members: Family Do you presently have visiting nurse or other home services: No Alcohol intake: current Alcohol intake frequency: holidays/special occasions only Patient Tobacco Use Status: Former Tobacco user Second Hand Smoke Exposure: No service: No Physical Exam Vital Signs: Last Vital Signs Temp 98.2 F 11/15/22 14:51 Pulse 87 11/15/22 14:51 BP 133/65 11/15/22 14:51 Pulse Ox 97 11/15/22 14:51 Oxygen Delivery Method Room Air 11/15/22 14:51 BMI result Body Mass Index 44.6 Results Reviewed Results Reviewed: HgbA1c 10.1 down from 12.9 07/09/22 Assessment & Plan Assessment & Plan Orders: Orders Glucose Random Today E11.65 - Type 2 diabetes mellitus with hyperglycemia Hemoglobin A1c Today E11.65 - Type 2 diabetes mellitus with hyperglycemia Coding Level of Care Code 92522 [facility] Intital setup, [facility] Diagnoses
[2022-11-15 14:51] VITALS: BP 133/65; PULSE 87; TEMP 36.8; O2SAT 97; BMI 44.6
== END 2022-11-15 17:42 | disposition home or self-care (01) ==
LOC: HO.META 13:30
PROVIDERS: PCP Internal Medicine; Visit Provider Physician Assistant Surgical
DX: E11.65 Type 2 diabetes mellitus with hyperglycemia (principal)

== ENCOUNTER → 2022-11-22 13:45 | Outpatient (BNVA) | payer MEDICARE, MEDICAID, SELFPAY | PROVIDERS: PCP Internal Medicine; Visit Provider Physician Assistant Surgical | DX: E11.65 Type 2 diabetes mellitus with hyperglycemia (principal) ==

== ENCOUNTER 2022-11-29 13:35 | Outpatient (AMB) | payer MEDICARE, MEDICAID, SELFPAY ==
--- NOTE | 2022-11-29 13:51 | A.OFFVIS_ITS ---
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 Since last week, he had multiple hypoglycemic episodes including 1 where his blood sugar went down to 62, he was symptomatic and had some juice. Since then his Lantus has been discontinued as well as his glipizide and metformin. We have also recommended he stop his Jardiance. He did take his Jardiance this morning, blood sugar this morning was 112 and at 14:30 hours it was 72 although he was asymptomatic. He will not take any diabetic medications tomorrow although he is taking Ozempic and wishes to continue this until such time he can see that his hemoglobin A1c has responded favorably or if he continues to continue to run with symptomatic hypoglycemia. He reports that he continues to undergo weekly wound care for his left 4th metatarsal head wound on the plantar aspect of his foot and is expected to get a total contact cast. He states that he is going to go to [employer] in [place] to attempt to get gym membership. We have encouraged him to use the recumbent bike as this would cause the least amount of pressure on the plantar aspect of his left foot wound. He did report loose stools today, otherwise has been tolerating the meal plan. Weight today 318.6 lb, representing a 10.6 lb weight loss since initial presentation to the program on 11/15/22. Monitoring is data on the [employer] website reveals stable blood pressure, weight has been decreasing as above, and blood sugars as listed above. 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 Fever Morbid obesity Nocturnal hypoxemia Non-healing wound RIGOBERTO (obstructive sleep apnea) PAD (peripheral artery disease) Restrictive lung disease Sepsis Social History Household Members: Family Do you presently have visiting nurse or other home services: No Alcohol intake: current Alcohol intake frequency: holidays/special occasions only Patient Tobacco Use Status: Former Tobacco user Second Hand Smoke Exposure: No service: No Physical Exam Vital Signs: Last Vital Signs Temp 97.8 F 11/29/22 14:05 Pulse 92 11/29/22 14:05 BP 119/65 11/29/22 14:05 Pulse Ox 96 11/29/22 14:05 Oxygen Delivery Method Room Air 11/29/22 14:05 BMI result Body Mass Index 43.2 Assessment & Plan Assessment & Plan (1) Morbid obesity: Code(s): E66.01 - Morbid (severe) obesity due to excess calories Plan: Overall, he has shown significant improvement, he has been taken off of 4 diabetic medications. He will continue to monitor his blood sugars twice daily and as needed. It is recommended that he decrease the number of forks at dinner from 12 down to 10. He will continue his shakes and protein bar. Return to clinic next week. Coding Level of Care Code 92853 RPM each addnl 20 min Diagnoses Morbid obesity E66.01
[2022-11-29 14:05] VITALS: BP 119/65; PULSE 92; TEMP 36.6; O2SAT 96; BMI 43.2
== END 2022-11-29 15:43 | disposition home or self-care (01) ==
LOC: HO.META 13:35
PROVIDERS: PCP Internal Medicine; Visit Provider Physician Assistant Surgical
DX: E66.01 Morbid (severe) obesity due to excess calories (principal)
CPT/HCPCS: 99457

== ENCOUNTER → 2022-11-29 13:35 | Outpatient (BNVA) | payer MEDICARE, MEDICAID, SELFPAY | PROVIDERS: PCP Internal Medicine; Visit Provider Physician Assistant Surgical | DX: E11.65 Type 2 diabetes mellitus with hyperglycemia (principal); E66.01 Morbid (severe) obesity due to excess calories ==

== ENCOUNTER 2022-12-02 08:35 | Outpatient (RCR) | payer MEDICARE, MEDICAID, SELFPAY ==
--- NOTE | ~2022-12-02 | XR_ITS ---
EXAMINATION: XR FOOT, LEFT CLINICAL INFORMATION: Nonhealing wound; question osteomyelitis. COMPARISON: Prior radiographs, most recently 10/17/2020. TECHNIQUE: AP, lateral, and oblique views of the left foot. FINDINGS: Bony mineralization is normal. There is a pes planus configuration. There is very mild osteoarthritic change of the tibiotalar joint. Boehler's angle is normal. There is a large posterior calcaneal spur, and a minimal plantar calcaneal spur is seen. There are degenerative changes of the dorsal midfoot. There has been a prior amputation of the fifth digit. There is a healed fracture of the fourth metacarpal bone. There is periosteal thickening of the second and third metacarpal bones. There is mild osteoarthritic change of the first metatarsophalangeal joint. Mild bunion formation is seen. There is no focal soft tissue swelling, gas or foreign body. XR/XR foot LT min 3V IMPRESSION: There are stable postoperative and posttraumatic changes. No focal finding is seen to suggest acute osteomyelitis.
== END 2023-02-14 14:44 | disposition home or self-care (01) ==
LOC: HO.WCC 08:35
PROVIDERS: PCP Internal Medicine; Visit Provider Physician Assistant
DX: E11.621 Type 2 diabetes mellitus with foot ulcer (principal); E11.51 Type 2 diabetes mellitus with diabetic peripheral angiopathy without gangrene; L97.522 Non-pressure chronic ulcer of other part of left foot with fat layer exposed; E11.40 Type 2 diabetes mellitus with diabetic neuropathy, unspecified; Z89.422 Acquired absence of other left toe(s); Z87.891 Personal history of nicotine dependence
CPT/HCPCS: 11042; 11043; 15275; 73630; 97597; 99212; Q4187

== ENCOUNTER 2022-12-05 07:50 | Outpatient (REF) | payer MEDICARE, MEDICAID, SELFPAY ==
[2022-12-05 09:07] LABS: Estimated Average Glucose 203 mg/dL; Hemoglobin A1c % 8.7 %
[2022-12-05 09:42] LABS: Alanine Aminotransferase 19 U/L (0-40); Albumin Level 3.9 g/dL (3.5-5.0); Alkaline Phosphatase 83 U/L (39-117); Anion Gap 13 (12-20); Aspartate Amino Transferase 16 U/L (5-37); Bilirubin Total 0.7 mg/dL (0.0-1.0); Blood Urea Nitrogen 23 mg/dL (9-16); Calcium 9.5 mg/dL (8.4-10.2); Carbon Dioxide 24 mmol/L (22-29); Chloride 105 mmol/L (96-108); Estimated Glomerular Filt Rate > 60; Glucose Random 159 mg/dL (60-115); Potassium 4.7 mmol/L (3.3-5.1); Sodium 137 mmol/L (135-145)
[2022-12-05 11:05] LABS: Creatinine Urine 130.22 mg/dL; Microalbum/Creatinine Ratio Ur 37.6 ug/mg cr
== END 2022-12-05 07:51 | disposition home or self-care (01) ==
LOC: HO.LAB 07:50
PROVIDERS: PCP Internal Medicine; Visit Provider Internal Medicine
DX: E11.9 Type 2 diabetes mellitus without complications (principal); I73.9 Peripheral vascular disease, unspecified; E78.00 Pure hypercholesterolemia, unspecified
CPT/HCPCS: 36415; 80053; 82043; 83036

== ENCOUNTER 2022-12-11 08:45 | Outpatient (REF) | payer MEDICARE, MEDICAID, SELFPAY ==
[2022-12-11 09:10] LABS: MANUAL DIFF FLAG NO
[2022-12-11 10:01] LABS: Basophils Absolute Auto 0.1 X10*3/uL (0.0-0.2); Basophils Percent Auto 0.6 % (0-2); Eosinophils Absolute Auto 0.5 X10*3/uL (0.0-0.4); Eosinophils Percent Auto 4.9 % (0-4); Hematocrit 42.5 % (42.0-52.0); Hemoglobin 13.7 g/dl (14.0-18.0); Imm Gran Abs Auto 0.03 X10*3/uL (0.00-0.03); Imm Gran Pct Auto 0.3 % (0.0-0.4); Lymphocytes Absolute Auto 1.8 X10*3/uL (1.2-4.9); Lymphocytes Percent Auto 19.1 % (20-40); Mean Corpuscular HGB Conc 32.2 g/dl (31.0-36.0); Mean Platelet Volume 10.1 fL (9.4-12.4); Monocytes Absolute Auto 0.7 X10*3/uL (0.1-1.2); Monocytes Percent Auto 7.1 % (2-11); Neutrophils Absolute Auto 6.4 x10*3/uL (2.0-8.3); Platelet Count 244 X10*3/uL (160-400); Red Blood Count 4.72 X10*6/uL (4.60-5.80); Red Cell Distribution Width 13.2 % (11.0-16.0); White Blood Count 9.4 X10*3/uL (4.8-10.8)
[2022-12-11 10:26] LABS: Anion Gap 12 (12-20); Blood Urea Nitrogen 26 mg/dL (9-16); C Reactive Protein 1.47 mg/dL (< or = 0.50); Calcium 9.6 mg/dL (8.4-10.2); Carbon Dioxide 24 mmol/L (22-29); Chloride 105 mmol/L (96-108); Estimated Glomerular Filt Rate > 60; Glucose Random 221 mg/dL (60-115); Potassium 4.2 mmol/L (3.3-5.1); Sodium 137 mmol/L (135-145)
[2022-12-11 10:58] LABS: Erythrocyte Sedimentation Rate 53 MM/HR (0-15)
== END 2022-12-11 08:46 | disposition home or self-care (01) ==
LOC: HO.LAB 08:45
PROVIDERS: PCP Internal Medicine; Visit Provider Surgery
DX: S91.302A Unspecified open wound, left foot, initial encounter (principal)
CPT/HCPCS: 36415; 80048; 85025; 85652; 86140

== ENCOUNTER 2023-02-03 08:21 | Outpatient (REF) | payer MEDICARE, MEDICAID, SELFPAY ==
[2023-02-03 09:38] LABS: Alanine Aminotransferase 21 U/L (0-40); Alkaline Phosphatase 86 U/L (39-117); Anion Gap 13 (12-20); Aspartate Amino Transferase 20 U/L (5-37); Bilirubin Total 1.4 mg/dL (0.0-1.0); Blood Urea Nitrogen 15 mg/dL (9-16); Calcium 9.8 mg/dL (8.4-10.2); Carbon Dioxide 26 mmol/L (22-29); Chloride 104 mmol/L (96-108); Estimated Glomerular Filt Rate > 60; Glucose Random 134 mg/dL (60-115); Sodium 138 mmol/L (135-145); Total Protein 8.2 g/dL (6.5-8.0)
[2023-02-03 09:52] LABS: Estimated Average Glucose 140 mg/dL; Hemoglobin A1c % 6.5 % (<6.0)
== END 2023-02-03 08:22 | disposition home or self-care (01) ==
LOC: HO.LAB 08:21
PROVIDERS: PCP Internal Medicine; Visit Provider Internal Medicine
DX: E11.9 Type 2 diabetes mellitus without complications (principal); Z79.4 Long term (current) use of insulin
CPT/HCPCS: 36415; 80053; 83036

== ENCOUNTER 2023-02-08 14:34 | Emergency (ER) | payer MEDICARE, MEDICAID, SELFPAY ==
--- NOTE | 2023-02-08 15:06 | ED_ITS ---
HPI - General Adult General Chief complaint: Eye Problems Stated complaint: right eye pain Time Seen by Provider: 02/08/23 18:31 Source: patient, RN notes reviewed and old records reviewed Mode of arrival: ambulatory Limitations: no limitations History of Present Illness HPI narrative: 57-year-old male with past medical history significant for diabetes, hypertension, RIGOBERTO morbid obesity presents for evaluation of right eye pain. patient reports that he has an infection in his right eye and has been followed by ophthalmology for the last few weeks He follows with the [facility]. the patient was seen there 3 days ago on Friday. He reports that his symptoms were improving at that time however they decreased his tobramycin / dexamethasone from t.i.d. to b.i.d. since then the patient's symptoms have worsened he complains of irritation in his eye and some mild blurry vision he states that he now has some redness to his eyelids Related Data Home Medications Medication Instructions Recorded Confirmed blood sugar diagnostic (FreeStyle 10/07/20 11/29/22 Test strips) clopidogrel 75 mg tablet 1 tab PO DAILY 10/07/20 11/29/22 lisinopril 2.5 mg tablet 1 tab PO DAILY 10/07/20 11/29/22 simvastatin 40 mg tablet 40 mg PO QPM 10/07/20 11/29/22 pregabalin 300 mg capsule 300 mg PO BID 11/15/22 11/29/22 semaglutide 1 mg/dose (2 mg/1.5 1 mg subcut QWEEK 11/15/22 11/29/22 mL) subcutaneous pen injector (Ozempic) semaglutide 0.25 mg or 0.5 mg (2 mg subcut 11/22/22 11/29/22 mg/3 mL) subcutaneous pen injector (Ozempic) semaglutide 1 mg/dose (4 mg/3 mL) 1 mg subcut QWEEK 11/22/22 11/29/22 subcutaneous pen injector (Ozempic) Previous Rx's Medication Instructions Recorded blood sugar diagnostic #50 ea 12/27/22 sulfamethoxazole 800 1 tab PO BID #14 tabs 02/08/23 mg-trimethoprim 160 mg tablet (Bactrim DS) Allergies Allergy/AdvReac Type Severity Reaction Status Date / Time penicillin G Allergy Unknown Unknown Verified 02/08/23 15:20 Review of Systems Constitutional: Constitutional: Denies chills and Denies fever(s) Eyes: Eyes: Reports blurry vision, Reports eye discharge, Reports irritation and Reports eye pain PMF Past Medical History 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 Fever Morbid obesity Nocturnal hypoxemia Non-healing wound RIGOBERTO (obstructive sleep apnea) PAD (peripheral artery disease) Restrictive lung disease Sepsis Social History Social History Household Members: Family Do you presently have visiting nurse or other home services: No Alcohol intake: current Alcohol intake frequency: holidays/special occasions only Patient Tobacco Use Status: Former Tobacco user Smoked in Last 30 Days: No Second Hand Smoke Exposure: No Use of substances other than those prescribed or required for medical reasons: No Advance Directives: No Advance Directives Information Provided: No service: No Physical Exam ED Vital Signs: Vital Signs - 24 hr 02/08/23 15:07 02/08/23 18:57 Temperature 98.2 F 98.4 F Pulse Rate 86 86 Respiratory Rate 20 18 Blood Pressure 133/87 124/81 Pulse Oximetry 100 93 Oxygen Delivery Method Room Air Room Air BMI result Body Mass Index 38.0 Const General: healthy appearing, comfortable, no acute distress, alert and awake Nutritional Appearance: well nourished Orientation/consciousness: patient oriented x3 HENMT Head: Yes normocephalic and Yes atraumatic Eyes Other: patient has full range of motion of extraocular movements in all cardinal directions bilaterally without any discomfort Alignment and Position: alignment normal Periorbital: periorbital findings abnormal right periorbital swelling, periorbital tenderness and periorbital erythema; no ecchymosis and no crepitus Conjunctivae: conjunctival abnormal right conjunctival injection diffuse and discharge; Negative for conjunctival icterus, without chemosis, without pterygia and without subconjunctival hemmorhages Sclerae: scleral abnormal right without foreign bodies and without hemorrhages Pupils: Equal, round and reactive pupils present EOM: EOMs intact bilaterally and No Nystagmus present Neck Neck: Yes full ROM Resp Effort & Inspection: normal respiratory effort, able to speak in complete sentences and not labored Skin General skin exam: elasticity normal Neuro General: patient oriented x3 Cranial nerves: Yes CN's II-XII intact bilaterally, Yes Equal, round and reactive pupils present, Yes Bilaterally intact EOM present and No Nystagmus present Cognition (Neuro): normal cognition Extrem Other: Moving all extremities well without any obvious deformities Course Course Course Narrative: This is a rapid medical exam: Additional HPI, ROS, PE not included below will be deferred to primary provider. Patient is a 57-year-old male with history of DM reporting that he is currently being treated for an infection to his right eye. Is currently on tobramycin with dexamethasone drops. 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 Woke today with increased redness, pain, and swelling. Reports blurred vision in right eye. Medications Administered Discontinued Medications Generic Name Dose Route Start Last Admin Trade Name Nataly PRN Reason Stop Dose Admin Trimethoprim/Sulfamethoxazole 1 tab 02/08/23 19:40 02/08/23 19:48 Sulfamethox/Trimeth 800/160 Tablet PO 02/08/23 19:41 1 tab ONCE ONE Administration Medical Decision Making Medical Decision Making MDM Narrative: 57-year-old male presents for evaluation of right eye pain. He is being treated for conjunctivitis with tobramycin and dexamethasone. He appears to have some mild periorbital erythema and edema. I have a low suspicion for preseptal cellulitis as the patient has full range of motion without any discomfort whatsoever. His symptoms are rather acute has a worsened over the last 24 hours. He does appear to have a mild cellulitis around the eye however which will be treated with Bactrim. however, I did still offered to get a CT scan and labs to completely rule this out. The patient declines as he feels is less likely and I agree. I am comfortable discharging the patient without a CT scan at this time but encouraged the patient to return for new or worsening symptoms. He was encouraged to return immediately if he has any loss of vision. Intra-ocular pressure is 12-13 mmHg on the right measured with a Johnathon-Pen. This rules out glaucoma. the patient reports that he has very close follow-up with his railroad yard worker Differential Diagnosis Differential Diagnoses: The differential diagnosis associated with the presentation includes Cellulitis Conjunctivitis Scleritis Iritis Preseptal cellulitis glaucoma Tests considered The following testing was considered but not selected: labs and a CT scan. Patient ultimately declined after discussing risks and benefits Discharge Plan Discharge Clinical Impression: Cellulitis, periorbital Patient Disposition: Home, Self-Care Instructions: Cellulitis (ED) Additional Instructions: I recommend increasing your eye drops back to 3 times a day take Bactrim twice daily for the next 7 days call your railroad yard worker on Friday to schedule follow-up and explain your symptoms return for new or worsening symptoms Prescriptions: New sulfamethoxazole-trimethoprim [Bactrim DS] 800-160 mg tablet 1 tab PO BID Qty: 14 0RF No Action (DME) blood sugar diagnostic Strip See Rx Instructions .Route Qty: 50 6RF Rx Instructions: As directed clopidogrel 75 mg tablet 1 tab PO DAILY (DME) FreeStyle Test Strip MISCELLANEOUS simvastatin 40 mg tablet 40 mg PO QPM lisinopril 2.5 mg tablet 1 tab PO DAILY pregabalin 300 mg capsule 300 mg PO BID Ozempic 1 mg/dose (2 mg/1.5 mL) pen injector 1 mg subcut QWEEK Ozempic 1 mg/dose (4 mg/3 mL) pen injector 1 mg subcut QWEEK Ozempic 0.25 mg or 0.5 mg (2 mg/3 mL) pen injector subcut Interventions: ED Discharge Assessment Last Done: 02/08/23 19:48 Discharge Date/Time: 02/08/23 19:50
[2023-02-08 15:07] VITALS: BP 133/87; PULSE 86; RESP 20; TEMP 36.8; O2SAT 100; BMI 38.0
[2023-02-08 18:57] VITALS: BP 124/81; PULSE 86; RESP 18; TEMP 36.9; O2SAT 93
[2023-02-08] MEDS: Sulfamethox/Trimeth 800/160 TABLET 1 TAB PO (19:48)
== END 2023-02-08 19:50 | disposition home or self-care (01) ==
PROVIDERS: Emergency Provider Emergency Medicine; PCP Internal Medicine
DX: L03.213 Periorbital cellulitis (principal); H57.11 Ocular pain, right eye; E11.9 Type 2 diabetes mellitus without complications; I10 Essential (primary) hypertension; E66.9 Obesity, unspecified; Z68.38 Body mass index [BMI] 38.0-38.9, adult; Z87.891 Personal history of nicotine dependence; Z79.899 Other long term (current) drug therapy
CPT/HCPCS: 99283; 99284

== ENCOUNTER 2023-09-03 06:55 | Emergency (ER) | payer MEDICARE, MEDICAID, SELFPAY ==
--- NOTE | ~2023-09-03 | XR_ITS ---
EXAMINATION: XR FOOT, LEFT CLINICAL INFORMATION: Wound plantar surface. COMPARISON: 12/10/2022 TECHNIQUE: 3 views of the left foot. FINDINGS: Prior amputation of the fifth digit. Old healed fracture deformities of third and fourth metatarsals. No acute osseous injury. No periarticular osteoporosis, erosions or active periostitis. Question presence of superficial wound at the lateral and plantar aspect of the foot. There is no deep soft tissue gas or radiopaque foreign body. There are calcaneal enthesophytes at sites of attachment of the Achilles tendon and plantar aponeurosis. An old stable lucency within the calcaneus could represent an intraosseous lipoma. Peripheral vascular calcifications are noted. XR/XR foot LT min 3V IMPRESSION: No acute radiographic abnormalities within the chronically deformed left foot. No evidence of osteomyelitis.
[2023-09-03 07:10] VITALS: BP 115/88; PULSE 121; RESP 16; TEMP 36.5; O2SAT 98; BMI 42.4
--- NOTE | 2023-09-03 07:14 | ECG_ITS ---
Test Reason : tachy Blood Pressure : / mmHG Vent. Rate : 104 BPM Atrial Rate : 104 BPM P-R Int : 192 ms QRS Dur : 098 ms QT Int : 358 ms P-R-T Axes : 006 -18 072 degrees QTc Int : 470 ms Sinus tachycardia Otherwise normal ECG When compared with ECG of 09-MAY-2006 03:42, No significant change was found Referred By: Generic ED Physician Electronically Signed By:MARGARET MEJIA MD
[2023-09-03 07:32] LABS: MANUAL DIFF FLAG NO
[2023-09-03 07:35] LABS: Basophils Absolute Auto 0.1 X10*3/uL (0.0-0.2); Basophils Percent Auto 0.7 % (0-2); Eosinophils Absolute Auto 0.5 X10*3/uL (0.0-0.4); Eosinophils Percent Auto 5.3 % (0-4); Hemoglobin 14.5 g/dl (14.0-18.0); Imm Gran Abs Auto 0.03 X10*3/uL (0.00-0.03); Imm Gran Pct Auto 0.3 % (0.0-0.4); Lymphocytes Absolute Auto 1.1 X10*3/uL (1.2-4.9); Lymphocytes Percent Auto 11.2 % (20-40); Mean Corpuscular HGB Conc 33.7 g/dl (31.0-36.0); Mean Corpuscular Hemoglobin 30.1 pg (27.0-33.0); Mean Corpuscular Volume 89.2 fL (80.0-98.0); Mean Platelet Volume 10.1 fL (9.4-12.4); Monocytes Absolute Auto 0.8 X10*3/uL (0.1-1.2); Monocytes Percent Auto 8.7 % (2-11); Neutrophils Percent Auto 73.8 % (45-73); Platelet Count 199 X10*3/uL (160-400); Red Blood Count 4.82 X10*6/uL (4.60-5.80); White Blood Count 9.6 X10*3/uL (4.8-10.8)
[2023-09-03 07:47] LABS: Lactic Acid 1.4 mmol/L (0.5-2.0)
[2023-09-03 07:49] LABS: Anion Gap 16 (12-20); Blood Urea Nitrogen 13 mg/dL (9-16); Calcium 9.8 mg/dL (8.4-10.2); Carbon Dioxide 23 mmol/L (22-29); Chloride 102 mmol/L (96-108); Creatinine Clr Calc Pharmacy 94.9; Estimated Glomerular Filt Rate 59; Glucose Random 289 mg/dL (60-115); Potassium 4.2 mmol/L (3.3-5.1); Sodium 137 mmol/L (135-145)
--- NOTE | 2023-09-03 11:53 | ED_ITS ---
HPI - General Adult General Chief complaint: Nausea/Vomiting/Diarrhea Stated complaint: n/v Related Data Home Medications ?Medication ?Instructions ?Recorded ?Confirmed blood sugar diagnostic (FreeStyle 10/07/20 11/29/22 Test strips) clopidogrel 75 mg tablet 1 tab PO DAILY 10/07/20 11/29/22 lisinopril 2.5 mg tablet 1 tab PO DAILY 10/07/20 11/29/22 simvastatin 40 mg tablet 40 mg PO QPM 10/07/20 11/29/22 pregabalin 300 mg capsule 300 mg PO BID 11/15/22 11/29/22 semaglutide 1 mg/dose (2 mg/1.5 1 mg subcut QWEEK 11/15/22 11/29/22 mL) subcutaneous pen injector (Ozempic) semaglutide 0.25 mg or 0.5 mg (2 mg subcut 11/22/22 11/29/22 mg/3 mL) subcutaneous pen injector (Ozempic) semaglutide 1 mg/dose (4 mg/3 mL) 1 mg subcut QWEEK 11/22/22 11/29/22 subcutaneous pen injector (Ozempic) Previous Rx's ?Medication ?Instructions ?Recorded blood sugar diagnostic #50 ea 12/27/22 sulfamethoxazole 800 1 tab PO BID #14 tabs 02/08/23 mg-trimethoprim 160 mg tablet (Bactrim DS) Allergies Allergy/AdvReac Type Severity Reaction Status Date / Time penicillin G Allergy Unknown Unknown Verified 09/03/23 07:12 [facility] Past Medical History 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 Fever Morbid obesity Nocturnal hypoxemia Non-healing wound RIGOBERTO (obstructive sleep apnea) PAD (peripheral artery disease) Restrictive lung disease Sepsis Social History Social History Household Members: Family Do you presently have visiting nurse or other home services: No Alcohol intake: current Alcohol intake frequency: holidays/special occasions only Patient Tobacco Use Status: Former Tobacco user Second Hand Smoke Exposure: No Advance Directives: Yes Advance Directives Information Provided: No Advance Directives on File: No service: No Physical Exam ED Vital Signs: Vital Signs - 24 hr 09/03/23 07:10 Temperature 97.7 F Pulse Rate 121 H Respiratory Rate 16 Blood Pressure 115/88 Pulse Oximetry 98 Oxygen Delivery Method Room Air BMI result Body Mass Index 42.4 Course Course Course Narrative: This is a rapid medical exam performed by Malathi Osman NP: Additional HPI, ROS, PE not included below will be deferred to primary provider. Patient initially triage prior to arrival of this provider. Patient returned to triage to ask about labs and reporting wound to left foot. States the wound is chronic and [facility], was last seen there approximately October of last year. Denies fevers. Reports last night noted bloody drainage. Patient is diabetic. Black wound to plantar surface of left foot, no active drainage, 2+ DP and PT pulses, prior toe amputation. Plan: x-ray, viral swabs, add ESR/CRP Medical Decision Making Lab Data 09/03/23 07:26 09/03/23 07:26 Labs: Lab Results 09/03/23 09/03/23 Range/Units 07:26 15:29 WBC 9.6 (4.8-10.8) X10*3/uL RBC 4.82 (4.60-5.80) X10*6/uL Hgb 14.5 (14.0-18.0) g/dl Hct 43.0 (42.0-52.0) % MCV 89.2 (80.0-98.0) fL MCH 30.1 (27.0-33.0) pg MCHC 33.7 (31.0-36.0) g/dl RDW 14.0 (11.0-16.0) % Plt Count 199 (160-400) X10*3/uL MPV 10.1 (9.4-12.4) fL Immature Gran % (Auto) 0.3 (0.0-0.4) % Neut % (Auto) 73.8 H (45-73) % Lymph % (Auto) 11.2 L (20-40) % Sharp % (Auto) 8.7 (2-11) % Eos % (Auto) 5.3 H (0-4) % Baso % (Auto) 0.7 (0-2) % Lymph # (Auto) 1.1 L (1.2-4.9) X10*3/uL Sharp # (Auto) 0.8 (0.1-1.2) X10*3/uL Eos # (Auto) 0.5 H (0.0-0.4) X10*3/uL Baso # (Auto) 0.1 (0.0-0.2) X10*3/uL Abs Immat Gran (auto) 0.03 (0.00-0.03) X10*3/uL Absolute Neuts (auto) 7.0 (2.0-8.3) x10*3/uL Absolute Nucleated RBC 0.000 (0.0-0.012) X10*3/uL Nucleated RBC % (auto) 0.0 (0.0-0.2) /100WBC ESR 34 H (0-15) MM/HR Sodium 137 (135-145) mmol/L Potassium 4.2 (3.3-5.1) mmol/L Chloride 102 (96-108) mmol/L Carbon Dioxide 23 (22-29) mmol/L Anion Gap 16 (12-20) BUN 13 (9-16) mg/dL Creatinine 1.27 (0.5-1.4) mg/dL Estim Creat Clear Calc 94.9 Estimated GFR 59 Random Glucose 289 H (60-115) mg/dL Lactic Acid 1.4 (0.5-2.0) mmol/L Calcium 9.8 (8.4-10.2) mg/dL C-Reactive Protein 1.55 H (< or = 0.50) mg/dL Influenza Type A (PCR) NEGATIVE (Negative) Influenza Type B (PCR) NEGATIVE (Negative) RSV RNA Qual (PCR) NEGATIVE (Negative) SARS-CoV-2 RNA (RT-PCR) NEGATIVE (Negative) Discharge Plan Discharge Clinical Impression: Diagnosis unknown Patient Disposition: Left W/O Completing Treatment Prescriptions: No Action (DME) blood sugar diagnostic Strip See Rx Instructions .Route Qty: 50 6RF Rx Instructions: As directed clopidogrel 75 mg tablet 1 tab PO DAILY (DME) FreeStyle Test Strip MISCELLANEOUS simvastatin 40 mg tablet 40 mg PO QPM lisinopril 2.5 mg tablet 1 tab PO DAILY sulfamethoxazole-trimethoprim [Bactrim DS] 800-160 mg tablet 1 tab PO BID Qty: 14 0RF pregabalin 300 mg capsule 300 mg PO BID Ozempic 1 mg/dose (2 mg/1.5 mL) pen injector 1 mg subcut QWEEK Ozempic 1 mg/dose (4 mg/3 mL) pen injector 1 mg subcut QWEEK Ozempic 0.25 mg or 0.5 mg (2 mg/3 mL) pen injector subcut Discharge Date/Time: 09/03/23 17:26
[2023-09-03 13:48] LABS: C Reactive Protein 1.55 mg/dL (< or = 0.50)
[2023-09-03 14:25] LABS: Erythrocyte Sedimentation Rate 34 MM/HR (0-15)
[2023-09-03 16:21] LABS: Influenza A PCR NEGATIVE (Negative); Influenza B PCR NEGATIVE (Negative); Resp Syncy Virus RNA Qual PCR NEGATIVE (Negative); SARS COV2 PCR INHOUSE NEGATIVE (Negative)
== END 2023-09-03 17:26 | disposition left against medical advice (07) ==
PROVIDERS: Registered Nurse Emergency; Emergency Provider Emergency Medicine; PCP Internal Medicine
DX: L97.529 Non-pressure chronic ulcer of other part of left foot with unspecified severity (principal); R11.2 Nausea with vomiting, unspecified; R00.0 Tachycardia, unspecified; E11.9 Type 2 diabetes mellitus without complications; Z79.899 Other long term (current) drug therapy; Z03.818 Encounter for observation for suspected exposure to other biological agents ruled out
CPT/HCPCS: 0241U; 36415; 73630; 80048; 83605; 85025; 85652; 86140; 87040; 93005; 99283

== ENCOUNTER → 2023-09-03 07:14 | Outpatient (BNV) | payer MEDICARE, MEDICAID, SELFPAY | PROVIDERS: PCP Internal Medicine; Visit Provider Internal Medicine Cardiovascular Disease | DX: R00.0 Tachycardia, unspecified (principal) | CPT/HCPCS: 93010 ==

== ENCOUNTER 2023-10-02 08:20 | Outpatient (AMB) | payer MEDICARE, MEDICAID, SELFPAY ==
--- NOTE | 2023-10-02 08:30 | A.OFFVIS_ITS ---
Vital Signs 3 10/02/23 08:36 Height 6 ft Weight 295 lb BMI 40.0 Intake Visit Reasons: Lump on neck, needs drainage Intake Note: Patient is seen in office for evaluation and treatment of a lump on the neck, needs drainage. Pt c/o: onset 2 wks ago, redness, swelling, painful to the touch and when sleeping, denies discharge, or other concerns Wheel Buffer Required: No Accompanied by: Self / Same As Patient Allergies penicillin G Allergy (Unknown, Verified 10/02/23 08:31) Unknown Medication List - Last Reconciled 10/02/23 by Gagan Oshea MD blood sugar diagnostic (FreeStyle Test strips) blood sugar diagnostic As directed clopidogrel 1 tab PO DAILY glipizide 10 mg PO BID lisinopril 1 tab PO DAILY metformin 1,000 mg PO BID pregabalin 300 mg PO BID semaglutide (Ozempic) mg subcut simvastatin 40 mg PO QPM HPI Comments Details: 57-year-old male patient presenting with skin infection involving the left posterior neck. This started prior to and he was placed on oral antibiotics (doxycycline) which did not help and in fact area of redness increased. He subsequently was evaluated at [facility] and admitted for IV antibiotics and further testing. CT and ultrasound was negative for abscess collection. He was admitted over the weekend and subsequently discharged home on Keflex which did seem to help decrease the size, although not completely. He returns today off the antibiotics noting increased pain and redness at the same location. He presents today for possible incision and drainage. 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 Fever Nocturnal hypoxemia Diabetes Restrictive lung disease RIGOBERTO (obstructive sleep apnea) Morbid obesity Surgical History Hx of amputation Hx of right inguinal hernia repair Hx of eye surgery Social History Household Members: Family Do you presently have visiting nurse or other home services: No Alcohol intake: current Alcohol intake frequency: holidays/special occasions only Patient Tobacco Use Status: Former Tobacco user Second Hand Smoke Exposure: No service: No Review of Systems Const All systems reviewed & are unremarkable except as noted in HPI and below Denies chills, Denies fever(s), Denies headache(s), Denies poor appetite and Denies weakness ENT Denies headache(s) Card Denies chest pain, Denies irregular heart rhythm, Denies palpitations and Denies dyspnea Resp Denies cough, Denies excessive phlegm production and Denies dyspnea GI Denies abdominal pain, Denies bloating, Denies change in bowel habits, Denies constipation, Denies heartburn, Denies diarrhea, Denies nausea and Denies vomiting Denies difficulty urinating and Denies urinary frequency Musc Denies back pain, Denies muscle weakness and Denies numbness Skin/Breast Reports as per HPI, Denies changing lesions, Reports erythema and Denies unusual bruising Neuro Denies headache(s), Denies numbness, Denies paresthesias and Denies weakness Psych Denies anxiety and Denies depression Endo Denies palpitations Rivera/Lymph Denies lymphadenopathy Physical Exam Vital Signs: BMI result Body Mass Index 40.0 Const General: cooperative and no acute distress Nutritional Appearance: well nourished Orientation/consciousness: patient oriented x3 Limitations: no limitations HEENT Head: Yes normocephalic and Yes atraumatic Ears: hearing grossly normal bilaterally Neck Other: Area of redness involving the left posterior neck below the hairline. Area measuring approximately 3 cm is noted which is tender to palpation. No fluctuant areas are appreciated. No palpable cyst is noted within this location. No clear evidence of an abscess. Neck images: 2 1. Area of redness and tenderness posterior left neck. Resp Effort & Inspection: normal respiratory effort, no audible wheezes, no cough and no respiratory distress Cardio Jugular venous distension: no JVD GI Inspection: Yes normal to inspection Skin Other: Warm, dry, no rash Neuro General: patient oriented x3 Extrem General: Yes no clubbing, cyanosis or edema Assessment & Plan Assessment & Plan (1) Cellulitis, neck: Code(s): L03.221 - Cellulitis of neck Category: Medical Plan 57-year-old male patient presenting with persistent area of pain, redness and no fluctuance. There is no evidence of an abscess at this time by clinical examination. I recommended restarting antibiotics which may need to be extended for a longer period of time. He will return in 1 week for follow-up examination. Medications: New 2 cephalexin 750 mg PO BID 28 caps 0RF 14 days L03.221 - Cellulitis of neck Coding Level of Care Code New Pt Level 4 (00661) Diagnoses Cellulitis, neck L03.221
[2023-10-02 08:36] VITALS: BMI 40.0
== END 2023-10-02 08:49 | disposition home or self-care (01) ==
PROVIDERS: PCP Internal Medicine; Referring Provider Internal Medicine; Visit Provider Surgery
DX: L03.221 Cellulitis of neck (principal)
CPT/HCPCS: 99214

== ENCOUNTER → 2023-10-02 08:20 | Outpatient (BNVA) | payer MEDICARE, MEDICAID, SELFPAY | PROVIDERS: PCP Internal Medicine; Referring Provider Internal Medicine; Visit Provider Surgery | DX: L03.221 Cellulitis of neck (principal) | CPT/HCPCS: 99212 ==

== ENCOUNTER 2023-10-09 09:14 | Outpatient (AMB) | payer MEDICARE, MEDICAID, SELFPAY ==
--- NOTE | 2023-10-09 09:16 | A.OFFVIS_ITS ---
Vital Signs 3 10/09/23 09:22 Height 6 ft Weight 301 lb BMI 40.8 BP 172/96 H Blood Pressure Location Lt brachial Position Sitting Pulse 111 H Intake Visit Reasons: 1 week follow up Lump on neck Intake Note: Patient is seen in office for one week follow up visit, following lump on the neck. 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 Resources Benefits Coordinator Required: No Accompanied by: Self / Same As Patient Allergies penicillin G Allergy (Unknown, Verified 10/02/23 08:31) Unknown Medication List - Last Reconciled 10/09/23 by Gagan Oshea MD blood sugar diagnostic (FreeStyle Test strips) blood sugar diagnostic As directed cephalexin 750 mg PO BID 14 days clopidogrel 1 tab PO DAILY glipizide 10 mg PO BID lisinopril 1 tab PO DAILY metformin 1,000 mg PO BID pregabalin 300 mg PO BID semaglutide (Ozempic) mg subcut simvastatin 40 mg PO QPM HPI Comments Details: Patient returns 1 week following previous examination of the posterior neck cellulitis. Overall he feels improved and has continued to take his antibiotics as prescribed. He denies any difficulty with the antibiotics. He still feels a several small lumps in his small amount of discomfort when palpated however there is overall improvement. 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 Fever Nocturnal hypoxemia Diabetes Restrictive lung disease RIGOBERTO (obstructive sleep apnea) Morbid obesity Surgical History Hx of amputation Hx of right inguinal hernia repair Hx of eye surgery Social History Household Members: Family Do you presently have visiting nurse or other home services: No Alcohol intake: current Alcohol intake frequency: holidays/special occasions only Patient Tobacco Use Status: Former Tobacco user Second Hand Smoke Exposure: No service: No Review of Systems Const All systems reviewed & are unremarkable except as noted in HPI and below Physical Exam Const General: cooperative and no acute distress Nutritional Appearance: well nourished Orientation/consciousness: patient oriented x3 Limitations: no limitations HEENT Head: Yes normocephalic and Yes atraumatic Ears: hearing grossly normal bilaterally Neck Other: Area of redness involving the left posterior neck below the hairline. Area measuring approximately 2 cm and is much smaller than previously noted last week. Two small pustules are noted in the periphery but did not appear to be a central cause of this cellulitis. No palpable abscess/fluctuance is noted. Neck images: 2 1. 2 cm area of erythema Resp Effort & Inspection: normal respiratory effort, no audible wheezes, no cough and no respiratory distress Cardio Jugular venous distension: no JVD GI Inspection: Yes normal to inspection Skin Other: Warm, dry, no rash Neuro General: patient oriented x3 Extrem General: Yes no clubbing, cyanosis or edema Assessment & Plan Assessment & Plan (1) Cellulitis, neck: Code(s): L03.221 - Cellulitis of neck Category: Medical Plan: Overall patient is improved with decreased tenderness and redness in the posterior neck. He will continue the antibiotics as prescribed and return in 2 weeks for follow-up examination. He is welcome to call sooner for any new concerns. Coding Level of Care Code Est Pt Level 3 (83240) Diagnoses Cellulitis, neck L03.221
[2023-10-09 09:22] VITALS: BP 172/96; PULSE 111; BMI 40.8
== END 2023-10-09 09:29 | disposition home or self-care (01) ==
PROVIDERS: PCP Internal Medicine; Visit Provider Surgery
DX: L03.221 Cellulitis of neck (principal)
CPT/HCPCS: 99213

== ENCOUNTER → 2023-10-09 09:14 | Outpatient (BNVA) | payer MEDICARE, MEDICAID, SELFPAY | PROVIDERS: PCP Internal Medicine; Visit Provider Surgery | DX: L03.221 Cellulitis of neck (principal) | CPT/HCPCS: 99212 ==

== ENCOUNTER 2023-10-20 08:36 | Outpatient (RCR) | payer MEDICARE, MEDICAID, SELFPAY ==
--- NOTE | ~2023-10-20 | XR_ITS ---
EXAMINATION: XR CHEST CLINICAL INFORMATION: Pretreatment for hyperbaric chamber. COMPARISON: 05/18/2018 TECHNIQUE: 2 views of the chest were obtained. FINDINGS: The lungs are moderately expanded. No focal consolidation. No pleural effusion. Cardiac silhouette is unchanged. XR/XR chest 2V IMPRESSION: No acute abnormality.
[2023-11-04 12:16] LABS: MANUAL DIFF FLAG NO
[2023-11-04 12:25] LABS: Basophils Absolute Auto 0.1 X10*3/uL (0.0-0.2); Basophils Percent Auto 1.1 % (0-2); Eosinophils Absolute Auto 0.3 X10*3/uL (0.0-0.4); Hematocrit 40.3 % (42.0-52.0); Hemoglobin 13.7 g/dl (14.0-18.0); Imm Gran Abs Auto 0.03 X10*3/uL (0.00-0.03); Imm Gran Pct Auto 0.4 % (0.0-0.4); Lymphocytes Absolute Auto 1.9 X10*3/uL (1.2-4.9); Mean Corpuscular Volume 88.2 fL (80.0-98.0); Mean Platelet Volume 9.4 fL (9.4-12.4); Monocytes Absolute Auto 0.6 X10*3/uL (0.1-1.2); Monocytes Percent Auto 7.4 % (2-11); Neutrophils Percent Auto 63.1 % (45-73); Platelet Count 276 X10*3/uL (160-400); Red Blood Count 4.57 X10*6/uL (4.60-5.80); Red Cell Distribution Width 12.9 % (11.0-16.0)
[2023-11-04 12:45] LABS: Estimated Average Glucose 286 mg/dL; Hemoglobin A1C 361.6629 umol/L; Hemoglobin A1c % 11.6 % (<6.0)
[2023-11-04 13:00] LABS: Anion Gap 14 (12-20); Blood Urea Nitrogen 13 mg/dL (9-16); C Reactive Protein 0.84 mg/dL (< or = 0.50); Calcium 9.5 mg/dL (8.4-10.2); Carbon Dioxide 25 mmol/L (22-29); Chloride 97 mmol/L (96-108); Estimated Glomerular Filt Rate 57; Glucose Random 509 mg/dL (60-115); Sodium 131 mmol/L (135-145)
[2023-11-04 13:12] LABS: Erythrocyte Sedimentation Rate 61 MM/HR (0-15)
--- NOTE | 2023-11-17 | ECG_ITS ---
Test Reason : PRE TREATMENT HYPERBARIC OXYGEN Blood Pressure : / mmHG Vent. Rate : 102 BPM Atrial Rate : 102 BPM P-R Int : 174 ms QRS Dur : 096 ms QT Int : 338 ms P-R-T Axes : -08 -24 051 degrees QTc Int : 440 ms Sinus tachycardia Normal ECG When compared with ECG of 03-SEP-2023 07:15, No significant change was found Referred By: Carrie Barnhart Electronically Signed By:Karel Real
== END 2024-02-27 15:07 | disposition admitted as inpatient to this hospital (09) ==
LOC: HO.WCC 08:36
PROVIDERS: PCP Internal Medicine; Visit Provider Physician Assistant
DX: E11.621 Type 2 diabetes mellitus with foot ulcer (principal); L97.522 Non-pressure chronic ulcer of other part of left foot with fat layer exposed; L97.526 Non-pressure chronic ulcer of other part of left foot with bone involvement without evidence of necrosis; E11.40 Type 2 diabetes mellitus with diabetic neuropathy, unspecified; L84 Corns and callosities; L08.9 Local infection of the skin and subcutaneous tissue, unspecified; A49.02 Methicillin resistant Staphylococcus aureus infection, unspecified site; L53.9 Erythematous condition, unspecified; I10 Essential (primary) hypertension; Z79.84 Long term (current) use of oral hypoglycemic drugs; Z79.2 Long term (current) use of antibiotics; Z89.422 Acquired absence of other left toe(s); Z87.891 Personal history of nicotine dependence
CPT/HCPCS: 11042; 11044; 36415; 71046; 80048; 83036; 84134; 85025; 85652; 86140; 87070; 87073; 87077; 87147; 87185; 87186; 87205; 93005; 99213

== ENCOUNTER 2023-10-24 08:39 | Outpatient (REF) | payer MEDICARE, MEDICAID, SELFPAY | END 2023-10-24 08:40 | disposition home or self-care (01) | LOC: HO.LNP 08:39 | PROVIDERS: PCP Internal Medicine; Visit Provider Surgery | DX: L72.3 Sebaceous cyst (principal); L03.221 Cellulitis of neck; Z79.2 Long term (current) use of antibiotics | CPT/HCPCS: 11421; 88304 ==

== ENCOUNTER 2023-10-24 08:39 | Outpatient (AMB) | payer MEDICARE, MEDICAID, SELFPAY ==
[2023-10-24 08:54] VITALS: BMI 40.8
--- NOTE | 2023-10-24 08:54 | MHC.OFFVIS ---
Vital Signs 10/24/23 08:54 Height 6 ft Weight 301 lb BMI 40.8 Intake Visit Reasons: 2 week follow up Lump on neck Intake Note: This patient presents for a two week follow-up for cellulitis neck. Patient c/o; reports swelling has improved, reports still has a few more tablets left to complete antibiotic. 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 He was treated with antibiotics and is now much improved. He still feels a palpable lump of the lower hairline and would like to have this excised. There has been no bleeding or discharge noted. 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 Fever Nocturnal hypoxemia Diabetes Restrictive lung disease RIGOBERTO (obstructive sleep apnea) Morbid obesity Surgical History Hx of amputation Hx of right inguinal hernia repair Hx of eye surgery Social History Household Members: Family Do you presently have visiting nurse or other home services: No Alcohol intake: current Alcohol intake frequency: holidays/special occasions only Patient Tobacco Use Status: Former Tobacco user Second Hand Smoke Exposure: No service: No Review of Systems Const All systems reviewed & are unremarkable except as noted in HPI and below Physical Exam Vital Signs: BMI result Body Mass Index 40.8 Const General: cooperative and no acute distress Nutritional Appearance: well nourished Orientation/consciousness: patient oriented x3 Limitations: no limitations HEENT Head: Yes normocephalic and Yes atraumatic Ears: hearing grossly normal bilaterally Neck Other: Previous 2 cm area of inflammation is now much smaller measuring approximately 1 cm in diameter. There is no fluctuance and the surrounding erythema is gone. Neck images: 1. Resp Effort & Inspection: normal respiratory effort, no audible wheezes, no cough and no respiratory distress Cardio Jugular venous distension: no JVD GI Inspection: Yes normal to inspection Skin Other: Warm, dry, no rash Neuro General: patient oriented x3 Extrem General: Yes no clubbing, cyanosis or edema Office Procedures Excision Details: Preoperative diagnosis: Sebaceous cyst posterior neck Postoperative diagnosis: Same Procedure: Excision of sebaceous cyst posterior neck Surgeon: Gagan Oshea MD Hadoop Application Developer: None Anesthesia: Local Indications for procedure: Previously infected sebaceous cyst posterior neck now measuring 1 cm in diameter Operative findings: 1 cm sebaceous cyst posterior neck without abscess Specimen: Sebaceous cyst posterior neck Estimated blood loss: Less than 2 mL Complications: None Procedure details: Patient was placed in a right lateral decubitus position. The site of surgery was confirmed with the patient informed consent assured. Skin was prepped with Betadine and draped in a sterile fashion. Local anesthesia was infiltrated circumferentially around the palpable cyst. Elliptical incision was then made with a scalpel and carried out through subcutaneous tissue. The cyst was completely excised and sent to pathology for further examination. Light pressure was held to maintain hemostasis. Skin was then closed using interrupted 4-0 nylon sutures. Sterile dressings consisting of 2 x 2 gauze and paper tape were then applied. The patient tolerated the procedure well. He was discharged in stable condition. [id number] scalp/neck/hands/feet/genitalia 0.6cm-1cm Procedure code (CPT) selection complete Assessment & Plan Assessment & Plan (1) Cellulitis, neck: Code(s): L03.221 - Cellulitis of neck Category: Medical Plan Patient underwent excision of a sebaceous cyst today and tolerated the procedure well. He will return in 1 week for suture removal. Coding Level of Care Code Procedure Only Diagnoses Cellulitis, neck L03.221 CPT Codes Scalp/Neck/Hands/Feet/Genetalia - CPT: 82790-[id number] scalp/neck/hands/feet/genitalia 0.6cm-1cm ([id number])
== END 2023-10-24 09:29 | disposition home or self-care (01) ==
PROVIDERS: PCP Internal Medicine; Visit Provider Surgery
DX: L03.221 Cellulitis of neck (principal)
CPT/HCPCS: 11421

== ENCOUNTER 2023-10-31 09:16 | Outpatient (AMB) | payer MEDICARE, MEDICAID, SELFPAY ==
--- NOTE | 2023-10-31 09:18 | MHC.OFFVIS ---
Vital Signs 10/31/23 09:25 Height 6 ft Weight 293 lb BMI 39.7 BP 164/92 H Blood Pressure Location Lt brachial Position Sitting Pulse 113 H Intake Visit Reasons: 1 week follow up Lump on neck Intake Note: Patient is seen in office for follow up visit, post excision of neck lump. 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 He tolerated the procedure well and returns today for suture removal. Pathology results were consistent with a ruptured epidermal inclusion cyst. 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 Fever Nocturnal hypoxemia Diabetes Restrictive lung disease RIGOBERTO (obstructive sleep apnea) Morbid obesity Surgical History Hx of amputation Hx of right inguinal hernia repair Hx of eye surgery Social History Household Members: Family Do you presently have visiting nurse or other home services: No Alcohol intake: current Alcohol intake frequency: holidays/special occasions only Patient Tobacco Use Status: Former Tobacco user Second Hand Smoke Exposure: No service: No Physical Exam Const General: no acute distress Nutritional Appearance: well nourished Orientation/consciousness: patient oriented x3 Limitations: no limitations Neck Other: Incision clean, dry, and intact. Sutures removed and wounds found to be well healed. Skin Other: Warm, dry, no rash Neuro General: patient oriented x3 Assessment & Plan Assessment & Plan (1) Sebaceous cyst: Code(s): L72.3 - Sebaceous cyst Category: Medical Plan 58-year-old male patient returning 1 week following excision of an epidermal inclusion cyst of the neck. He tolerated the procedure well and his wounds are healing nicely. He should follow up as needed. Coding Level of Care Code Global (11652) Diagnoses Sebaceous cyst L72.3
[2023-10-31 09:25] VITALS: BP 164/92; PULSE 113; BMI 39.7
== END 2023-10-31 09:28 | disposition home or self-care (01) ==
PROVIDERS: PCP Internal Medicine; Visit Provider Surgery
DX: L72.3 Sebaceous cyst (principal)
CPT/HCPCS: 99024

== ENCOUNTER → 2023-10-31 09:16 | Outpatient (BNVA) | payer MEDICARE, MEDICAID, SELFPAY | PROVIDERS: PCP Internal Medicine; Visit Provider Surgery | DX: Z48.817 Encounter for surgical aftercare following surgery on the skin and subcutaneous tissue (principal); Z98.890 Other specified postprocedural states | CPT/HCPCS: 99212 ==

== ENCOUNTER 2023-11-04 12:16 | Outpatient (REF) | payer MEDICARE, MEDICAID, SELFPAY ==
--- NOTE | ~2023-11-04 | MR_ITS ---
EXAMINATION: MR FOOT WITHOUT AND WITH CONTRAST, LEFT CLINICAL INFORMATION: Left foot infection. Nonhealing wound. Evaluate for osteomyelitis. 5th metatarsal resection. COMPARISON: Multiple priors, most recent left foot radiographs dated 09/03/2023 and MRI dated 10/09/2020. TECHNIQUE: MRI of the left foot was performed before and after the intravenous administration of 10 mL Gadavist on a high-field scanner. FINDINGS: Soft tissue ulceration and postsurgical artifact along the lateral aspect of the midfoot in the region of the resected 5th metatarsal. Adjacent skin thickening and subcutaneous edema with postcontrast enhancement, consistent with cellulitis. No organized fluid collection or discrete abscess formation. The 4th metatarsal again demonstrates a chronic fracture in unchanged anatomic alignment. There is marrow edema within the mid shaft of the 4th metatarsal in the region of the fracture. This is adjacent to the soft tissue ulceration/cellulitis and demonstrates increased T2 with mildly decreased T1 signal and postcontrast enhancement. Given the proximity to the ulceration, findings likely represent early osteomyelitis. No 1st, 2nd, or 3rd metatarsal stress reaction or fracture. No concerning lytic or blastic osseous lesion. Diffuse fatty replacement of the visualized flexor and extensor tendons. No acute tendon tear or tendon retraction. Intact Lisfranc ligament. MR/MR foot LT wo/w con IMPRESSION: 1. Soft tissue ulceration and cellulitis along the lateral aspect of the midfoot in the region of the resected 5th metatarsal. No discrete abscess formation. 2. Marrow edema within the mid shaft of the 4th metatarsal adjacent to the soft tissue ulceration, likely representing early osteomyelitis. There is an associated healed fracture in this region which appears similar when compared to prior examinations. 3. Diffuse fatty replacement of the visualized flexor and extensor tendons.
[2023-11-04] MEDS: gadobutroL 10 ML VIAL IVPUSH (14:23)
== END 2023-11-04 12:17 | disposition home or self-care (01) ==
LOC: HO.MRI 12:16
PROVIDERS: PCP Internal Medicine; Visit Provider Physician Assistant
DX: L08.9 Local infection of the skin and subcutaneous tissue, unspecified (principal)
CPT/HCPCS: 73720; A9585

== ENCOUNTER → 2023-11-17 10:37 | Outpatient (BNV) | payer MEDICARE, MEDICAID, SELFPAY | PROVIDERS: PCP Internal Medicine; Visit Provider Internal Medicine Cardiovascular Disease | DX: R00.0 Tachycardia, unspecified (principal) | CPT/HCPCS: 93010 ==

== ENCOUNTER 2024-01-03 07:54 | Outpatient (REF) | payer MEDICARE, SELFPAY ==
[2024-01-03 08:16] LABS: MANUAL DIFF FLAG NO
[2024-01-03 08:53] LABS: Basophils Absolute Auto 0.1 X10*3/uL (0.0-0.2); Basophils Percent Auto 0.9 % (0-2); Eosinophils Absolute Auto 0.5 X10*3/uL (0.0-0.4); Eosinophils Percent Auto 6.7 % (0-4); Hematocrit 40.5 % (42.0-52.0); Hemoglobin 13.2 g/dl (14.0-18.0); Imm Gran Abs Auto 0.02 X10*3/uL (0.00-0.03); Imm Gran Pct Auto 0.2 % (0.0-0.4); Lymphocytes Percent Auto 24.3 % (20-40); Mean Corpuscular HGB Conc 32.6 g/dl (31.0-36.0); Mean Corpuscular Hemoglobin 29.2 pg (27.0-33.0); Mean Corpuscular Volume 89.6 fL (80.0-98.0); Mean Platelet Volume 9.5 fL (9.4-12.4); Monocytes Absolute Auto 0.8 X10*3/uL (0.1-1.2); Monocytes Percent Auto 9.7 % (2-11); Neutrophils Absolute Auto 4.7 x10*3/uL (2.0-8.3); Neutrophils Percent Auto 58.2 % (45-73); Platelet Count 272 X10*3/uL (160-400); Red Blood Count 4.52 X10*6/uL (4.60-5.80); Red Cell Distribution Width 13.9 % (11.0-16.0); White Blood Count 8.1 X10*3/uL (4.8-10.8)
[2024-01-03 09:14] LABS: Estimated Average Glucose 177 mg/dL; Hemoglobin A1c % 7.8 % (<6.0)
[2024-01-03 09:22] LABS: Alanine Aminotransferase 17 U/L (0-40); Albumin Level 3.8 g/dL (3.5-5.0); Alkaline Phosphatase 96 U/L (39-117); Anion Gap 13 (12-20); Aspartate Amino Transferase 16 U/L (5-37); Bilirubin Total 0.8 mg/dL (0.0-1.0); Blood Urea Nitrogen 19 mg/dL (9-16); Calcium 9.4 mg/dL (8.4-10.2); Carbon Dioxide 25 mmol/L (22-29); Chloride 103 mmol/L (96-108); Cholesterol 202 mg/dL (<200); Estimated Glomerular Filt Rate > 60; Glucose Fasting 157 mg/dL (60-99); HDL Cholesterol 38 mg/dL (>40); LDL Cholesterol Calculated 140 mg/dL (<100); Potassium 4.1 mmol/L (3.3-5.1); Sodium 137 mmol/L (135-145); Total Protein 8.2 g/dL (6.5-8.0); Triglycerides 122 mg/dL (<150)
[2024-01-03 09:26] LABS: Creatinine Urine 171.17 mg/dL; Microalbum/Creatinine Ratio Ur 24.5 ug/mg cr (<30)
[2024-01-03 09:39] LABS: Prostate Specific Antigen 0.28 ng/mL (<0.05-4.0)
[2024-01-03 14:57] LABS: Appearance Urine Clear; Color Urine Yellow; Glucose Urine UA Negative (Negative); Leukocyte Esterase Urine Negative (Negative); Nitrite Urine Negative (Negative); Specific Gravity - Urine 1.025 (1.005-1.025); Urine Blood Negative (Negative); Urine Ketones Negative (Negative); Urine Protein Trace mg/dL (Neg-Trace)
== END 2024-01-03 07:55 | disposition home or self-care (01) ==
LOC: HO.LAB 07:54
PROVIDERS: PCP Internal Medicine; Visit Provider Internal Medicine
DX: I10 Essential (primary) hypertension (principal); E11.9 Type 2 diabetes mellitus without complications; E78.00 Pure hypercholesterolemia, unspecified; Z12.5 Encounter for screening for malignant neoplasm of prostate
CPT/HCPCS: 36415; 80053; 80061; 81003; 82043; 82570; 83036; 84153; 85025

== ENCOUNTER 2024-01-07 14:24 | Inpatient (IN) | payer MEDICARE, SELFPAY ==
--- NOTE | ~2024-01-07 | XR_ITS ---
EXAMINATION: XR FOOT, LEFT CLINICAL INFORMATION: Evaluate for osteomyelitis. COMPARISON: X-rays of right foot August 2023. TECHNIQUE: AP, lateral, and oblique views of the left foot. FINDINGS: There are postoperative changes related to resection of the 5th metatarsal, distal 4th metatarsal and middle 3rd portion of the 3rd metatarsal. The remaining bony joints are unremarkable. Arterial calcification present. Posterior calcaneal spurs. XR/XR foot LT min 3V IMPRESSION: Postoperative changes . No radiographic signs of osteomyelitis Electronically signed by: Jose Carolina MD 01/07/2024 04:54 PM EDT
--- NOTE | ~2024-01-07 | US_ITS ---
EXAMINATION: COLOR-FLOW DUPLEX IMAGING OF THE BILATERAL LOWER EXTREMITY ARTERIAL SYSTEM WITH VELOCITY MEASUREMENTS CLINICAL INFORMATION: The patient is a 58 year-old man with risk factors for peripheral vascular disease including hyperlipidemia and diabetes. The patient presents with a nonhealing ulcer. RIGHT FEMORAL RUNOFF VELOCITIES: The right common femoral artery peak systolic velocity is 76.4 cm/s. The waveform is triphasic. The right profunda femoral artery peak systolic velocity is 43.7 cm/s. The waveform is triphasic. The right proximal superficial femoral artery peak systolic velocity is 78.9 cm/s. The waveform is triphasic. The right mid superficial femoral artery peak systolic velocity is 70.2 cm/s. The waveform is triphasic. The right distal superficial femoral artery peak systolic velocity is 60.9 cm/s. The waveform is triphasic. The right popliteal artery peak systolic velocity is 55.3 cm/s. The waveform is triphasic. The right posterior tibial artery peak systolic velocity is 102.0 cm/s. The waveform is triphasic. LEFT FEMORAL RUNOFF VELOCITIES: The left common femoral artery peak systolic velocity 83.4 cm/s. The waveform is triphasic. The left profunda femoral artery peak systolic velocity is 54.3 cm/s. The waveform is monophasic. The left proximal superficial femoral artery peak systolic velocity is 73.0 cm/s. The waveform is triphasic. The left mid superficial femoral artery peak systolic velocity is 88.8 cm/s. The waveform is triphasic. The left distal superficial femoral artery peak systolic velocity is 65.9 cm/s. The waveform is triphasic. The left popliteal artery peak systolic velocity is 57.8 cm/s. The waveform is triphasic. The left posterior tibial artery peak systolic velocity is 126.0 cm/s. The waveform is monophasic. US/US arterial duplex LE BI IMPRESSION: 1. No hemodynamically significant right lower extremity inflow or outflow arterial disease is seen. 2. There is hemodynamically significant obstructive arterial disease of the left posterior tibial artery. Electronically signed by: Gagan He MD 01/12/2024 09:56 PM EDT
--- NOTE | ~2024-01-07 | US_ITS ---
EXAMINATION: Noninvasive assessment of the arteries of both lower extremities to include a single level PVR exam and ANKLE BRACHIAL INDICES (ABIs). CLINICAL INFORMATION: Peripheral vascular disease TECHNIQUE: The ankle/brachial indices of the distal posterior tibial and the dorsalis pedis arteries were obtained of the lower extremity arterial system bilaterally; along with pressures and pulse volume recordings at the ankle level. The study was performed at rest. COMPARISON: None FINDINGS: 1. ANKLE-BRACHIAL INDICES: RIGHT: Noncompressible LEFT: Noncompressible 2. ANKLE PVR WAVEFORMS: RIGHT: Normal LEFT: Normal US/US JUAN complete IMPRESSION: Noncompressible ankle brachial indices Electronically signed by: Wilton Flores MD 03/03/2024 02:06 PM [facility]
--- NOTE | ~2024-01-07 | MR_ITS ---
EXAMINATION: MR FOOT WITHOUT AND WITH CONTRAST, LEFT CLINICAL INFORMATION: Left foot edema. Erythema. Plantar wound infection. COMPARISON: Radiograph dated 01/07/2024. TECHNIQUE: MRI of the left foot was performed before and after the intravenous administration of 10 mL Gadavist on a high-field scanner. FINDINGS: The fifth metatarsal and toe are absent, as are the distal half of the fourth metatarsal and a small portion of the third metatarsal shaft. There is a plantar/lateral wound at the left forefoot/midfoot in the region of prior surgery measuring 1.5 x 2.4 cm with surrounding skin thickening and hyperenhancement. There is a fluid-containing tract deep to this, contiguous with a 4 x 1.2 x 3.5 cm complex peripherally enhancing collection, most consistent with a abscess. This abscess abuts the plantar/lateral margins of the remaining portions of the fourth and third metatarsal bases. Marrow edema signal and postcontrast enhancement are present in both. There is loss of fat signal intensity within the distal margin of the fourth metatarsal base on T1-weighted images, consistent with osteomyelitis. There is a high probability of osteomyelitis in the distal margin third metatarsal base based upon the marrow signal abnormality in the adjacent abscess. Additional edema signal and enhancement are noted at the proximal margin of the shaft fragment of the third metatarsal, also concerning for osteomyelitis in the context of the adjacent abscess. No additional sites of osteomyelitis are identified. 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 There is fatty atrophy of the intrinsic foot musculature with increased signal intensity on T2-weighted images this is most typical of denervation atrophy from diabetic neuropathy. Soft tissues are diffusely swollen with associated subcutaneous edema. No appreciable tenosynovitis. MR/MR foot LT wo/w con IMPRESSION: 1. A 4 cm abscess at the plantar/lateral margin of the left forefoot/midfoot with a contiguous plantar wound. 2. Osteomyelitis at the distal margin of the fourth metatarsal base. The margins of the third metatarsal fragments are also edematous and enhancing which, in the context of the adjacent abscess, constitutes a high probability of acute osteomyelitis. Electronically signed by: Juanpablo Warren MD 01/08/2024 03:49 PM EDT
--- NOTE | 2024-01-07 15:03 | ED_ITS ---
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 For last 24 hours it is noticed slight redness of the dorsum of the foot no fever no chills also has a slight purulent discharge at the base of the 3th metatarsal patient came here as a re-evaluation is not happy at [facility] Related Data Home Medications ?Medication ?Instructions ?Recorded ?Confirmed blood sugar diagnostic (FreeStyle 10/07/20 10/24/23 Test strips) clopidogrel 75 mg tablet 1 tab PO DAILY 10/07/20 10/24/23 lisinopril 2.5 mg tablet 1 tab PO DAILY 10/07/20 10/24/23 simvastatin 40 mg tablet 40 mg PO QPM 10/07/20 10/24/23 pregabalin 300 mg capsule 300 mg PO BID 11/15/22 10/24/23 semaglutide 0.25 mg or 0.5 mg (2 mg subcut 11/22/22 10/24/23 mg/3 mL) subcutaneous pen injector (Ozempic) glipizide 10 mg tablet 10 mg PO BID 10/02/23 10/24/23 metformin 1,000 mg tablet 1,000 mg PO BID 10/02/23 10/24/23 Previous Rx's ?Medication ?Instructions ?Recorded blood sugar diagnostic #50 ea 12/27/22 cephalexin 750 mg capsule 750 mg PO BID 14 days #28 caps 10/02/23 Allergies Allergy/AdvReac Type Severity Reaction Status Date / Time penicillin G Allergy Unknown Unknown Verified 01/07/24 15:09 Review of Systems 2 Review of Systems: Yes all other systems are reviewed and are negative PMFSH Past Medical History Medical History PAD (peripheral artery disease) Non-healing wound Sepsis 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 Fever Nocturnal hypoxemia Diabetes Restrictive lung disease RIGOBERTO (obstructive sleep apnea) Morbid obesity Surgical History Hx of amputation Hx of right inguinal hernia repair Hx of eye surgery Social History Social History Household Members: Family Do you presently have visiting nurse or other home services: No Alcohol intake: current Alcohol intake frequency: does not drink Patient Tobacco Use Status: Former Tobacco user Smoked in Last 30 Days: No Second Hand Smoke Exposure: No Use of substances other than those prescribed or required for medical reasons: No Advance Directives: No Advance Directives Information Provided: No service: No Physical Exam ED Vital Signs: Vital Signs - 24 hr 01/07/24 15:05 01/08/24 01:28 Temperature 99.3 F 98.4 F Pulse Rate 118 H 87 Respiratory Rate 20 17 Blood Pressure 142/82 H 102/70 Pulse Oximetry 97 95 Oxygen Delivery Method Room Air Room Air BMI result Body Mass Index 40.0 Appearance: Alert. Oriented X3. No acute distress. Obese Eyes: No pallor or icterus ENT: Pharynx normal. Oral Mucosa moist Neck: Normal inspection. Neck supple. CVS: Normal heart rate and rhythm. Pulses normal. Respiratory: No respiratory distress. Equal air entry bilateral, no wheezing/rales/rhonchi Abdomen: Soft and nontender. Bowel sounds are present, , no CVA tenderness Skin: Skin warm and dry. Normal skin color. Normal skin turgor. Extremities: No lower extremity edema. No calf tenderness erythematous area of the dorsum of the left foot with wound in the bottom in the picture as described Neuro: Oriented X 3. No motor deficit. Course Course Course Narrative: This is a rapid medical exam performed by Malathi Osman NP: Additional HPI, ROS, PE not included below will be deferred to primary provider. Patient is a 58-year-old male presenting to ED with left foot redness, recent surgery at [facility], prior to surgery patient was septic, just finished IV Vanco. Temp 99.1 here. Plan: labs, cultures, xray Medications Administered Generic Name Dose Route Start Last Admin Trade Name Freq PRN Reason Stop Dose Admin Acetaminophen 975 mg 01/08/24 04:53 01/08/24 06:26 Acetaminophen 325 Mg Tablet PO 975 mg Q6H PRN Administration Pain, Mild (Pain Scale 1-3), fever or headache Discontinued Medications Generic Name Dose Route Start Last Admin Trade Name Nataly PRN Reason Stop Dose Admin Acetaminophen 975 mg 01/07/24 23:16 01/07/24 23:19 Acetaminophen 325 Mg Tablet PO 01/07/24 23:17 975 mg ONCE ONE Administration Sodium Chloride 1,000 mls @ 999 mls/hr 01/08/24 02:34 01/08/24 04:14 Ns IV 01/08/24 03:34 Infused .Q1H1M ONE Infusion Vancomycin HCl 2,000 mg in 500 mls @ 250 mls/hr 01/08/24 02:34 01/08/24 04:12 Vancomycin/Ns IV 01/08/24 04:33 250 mls/hr ONCE ONE Administration Cefepime HCl 2 gm/ Sodium 50 mls @ 100 mls/hr 01/08/24 02:36 01/08/24 03:46 Chloride IV 01/08/24 03:05 Infused ONCE ONE Infusion Medical Decision Making Medical Decision Making [facility] Narrative: Patient with reinfection of the left foot x-ray negative for bony erosion vitals slightly elevated will admit patient for IV treatment and surgical evaluation Differential Diagnosis Differential Diagnoses: The differential diagnosis associated with the presentation includes Osteomyelitis/Charcot foot/cellulitis Admission/Observation Consideration of admission/observation: Escalation of care including admission/observation considered Consult Healthcare Provider Management of the patient was discussed with: Hospitalist Lab Data [facility] Lab Attestation statement: I reviewed the patient's lab results. 01/07/24 17:32 01/07/24 17:32 Labs: Lab Results 01/07/24 01/07/24 01/08/24 Range/Units 17:32 21:28 01:42 WBC 13.0 H (4.8-10.8) X10*3/uL RBC 4.21 L (4.60-5.80) X10*6/uL Hgb 12.5 L (14.0-18.0) g/dl Hct 37.5 L (42.0-52.0) % MCV 89.1 (80.0-98.0) fL MCH 29.7 (27.0-33.0) pg MCHC 33.3 (31.0-36.0) g/dl RDW 13.8 (11.0-16.0) % Plt Count 272 (160-400) X10*3/uL MPV 9.6 (9.4-12.4) fL Immature Gran % (Auto) 0.4 (0.0-0.4) % Neut % (Auto) 75.2 H (45-73) % Lymph % (Auto) 13.2 L (20-40) % Hendricks % (Auto) 8.4 (2-11) % Eos % (Auto) 2.3 (0-4) % Baso % (Auto) 0.5 (0-2) % Lymph # (Auto) 1.7 (1.2-4.9) X10*3/uL Hendricks # (Auto) 1.1 (0.1-1.2) X10*3/uL Eos # (Auto) 0.3 (0.0-0.4) X10*3/uL Baso # (Auto) 0.1 (0.0-0.2) X10*3/uL Abs Immat Gran (auto) 0.05 H (0.00-0.03) X10*3/uL Absolute Neuts (auto) 9.8 H (2.0-8.3) x10*3/uL Absolute Nucleated RBC 0.000 (0.0-0.012) X10*3/uL Nucleated RBC % (auto) 0.0 (0.0-0.2) /100WBC ESR 88 H (0-15) MM/HR Sodium 136 (135-145) mmol/L Potassium 4.1 (3.3-5.1) mmol/L Chloride 100 (96-108) mmol/L Carbon Dioxide 28 (22-29) mmol/L Anion Gap 12 (12-20) BUN 15 (9-16) mg/dL Creatinine 1.25 (0.5-1.4) mg/dL Estim Creat Clear Calc 92.2 Estimated GFR 60 POC Glucose 125 H 162 H (60-115) mg/dL Random Glucose 226 H (60-115) mg/dL Lactic Acid 1.2 (0.5-2.0) mmol/L Calcium 9.7 (8.4-10.2) mg/dL Total Bilirubin 1.2 H (0.0-1.0) mg/dL AST 15 (5-37) U/L ALT 11 (0-40) U/L Alkaline Phosphatase 90 (39-117) U/L C-Reactive Protein 23.85 H (< or = 0.50) mg/dL Total Protein 8.8 H (6.5-8.0) g/dL Albumin 3.8 (3.5-5.0) g/dL Independent Interpretation I performed an independent interpretation of an: Plain X-Ray Radiology Impression Discussion of test interpretation with radiology: I have reviewed the radiologist's reading. Discharge Plan Discharge Clinical Impression: Diabetic foot infection Patient Disposition: Admitted As Inpatient Interventions: Admission Worksheet (ED) Last Done: 01/08/24 05:29 Discharge Date/Time: 01/08/24 06:19
[2024-01-07 15:05] VITALS: BP 142/82; PULSE 118; RESP 20; TEMP 37.4; O2SAT 97; BMI 40.0
--- NOTE | 2024-01-07 17:38 | MHC.EDTECH ---
Venipuncture x 2. First attempt unsuccessful. Second attempt collected bc x1 and blood labs. Additional draw needed for 2nd cultures.
[2024-01-07 17:40] LABS: MANUAL DIFF FLAG NO
[2024-01-07 17:44] LABS: Basophils Absolute Auto 0.1 X10*3/uL (0.0-0.2); Basophils Percent Auto 0.5 % (0-2); Eosinophils Absolute Auto 0.3 X10*3/uL (0.0-0.4); Eosinophils Percent Auto 2.3 % (0-4); Hematocrit 37.5 % (42.0-52.0); Hemoglobin 12.5 g/dl (14.0-18.0); Imm Gran Abs Auto 0.05 X10*3/uL (0.00-0.03); Imm Gran Pct Auto 0.4 % (0.0-0.4); Lymphocytes Absolute Auto 1.7 X10*3/uL (1.2-4.9); Lymphocytes Percent Auto 13.2 % (20-40); Mean Corpuscular HGB Conc 33.3 g/dl (31.0-36.0); Mean Corpuscular Hemoglobin 29.7 pg (27.0-33.0); Mean Corpuscular Volume 89.1 fL (80.0-98.0); Mean Platelet Volume 9.6 fL (9.4-12.4); Monocytes Absolute Auto 1.1 X10*3/uL (0.1-1.2); Monocytes Percent Auto 8.4 % (2-11); Neutrophils Absolute Auto 9.8 x10*3/uL (2.0-8.3); Neutrophils Percent Auto 75.2 % (45-73); Platelet Count 272 X10*3/uL (160-400); Red Blood Count 4.21 X10*6/uL (4.60-5.80); Red Cell Distribution Width 13.8 % (11.0-16.0)
[2024-01-07 17:53] LABS: Lactic Acid 1.2 mmol/L (0.5-2.0)
[2024-01-07 17:59] LABS: Alanine Aminotransferase 11 U/L (0-40); Albumin Level 3.8 g/dL (3.5-5.0); Alkaline Phosphatase 90 U/L (39-117); Anion Gap 12 (12-20); Aspartate Amino Transferase 15 U/L (5-37); Bilirubin Total 1.2 mg/dL (0.0-1.0); Blood Urea Nitrogen 15 mg/dL (9-16); C Reactive Protein 23.85 mg/dL (< or = 0.50); Calcium 9.7 mg/dL (8.4-10.2); Carbon Dioxide 28 mmol/L (22-29); Chloride 100 mmol/L (96-108); Creatinine Clr Calc Pharmacy 92.2; Estimated Glomerular Filt Rate 60; Glucose Random 226 mg/dL (60-115); Potassium 4.1 mmol/L (3.3-5.1); Sodium 136 mmol/L (135-145); Total Protein 8.8 g/dL (6.5-8.0)
[2024-01-07 19:50] LABS: Erythrocyte Sedimentation Rate 88 MM/HR (0-15)
[2024-01-07 21:34] LABS: Glucose, Whole Blood 125 mg/dL (60-115)
[2024-01-07] MEDS: Acetaminophen 325 MG TABLET 975 MG PO (23:19)
[2024-01-08 01:28] VITALS: BP 102/70; PULSE 87; RESP 17; TEMP 36.9; O2SAT 95
[2024-01-08 01:48] LABS: Glucose, Whole Blood 162 mg/dL (60-115)
[2024-01-08] MEDS: cefEPime HCl 2 GM in 0.9 % Sodium Chloride 50 ML IV ×3 (03:16→19:41)
[2024-01-08] MEDS: 0.9 % Sodium Chloride 1,000 ML 999 ML IV (03:16)
--- NOTE | 2024-01-08 03:41 | PC.NURSE ---
previous dressing removed for MD assessment. per MD to keep open to air. iv established. ivf and abx infusing per mar. awaiting admission orders. pt is axox4 had steady gait with ambulation call niño within reach.
[2024-01-08] MEDS: vancomycin/NS 2,000 MG/500 ML PLAST..BAG 250 MG IV (04:12)
--- NOTE | 2024-01-08 05:11 | P.HPHOSP_ITS ---
History of Present Illness Date of Service: 01/08/24 Attending physician on admission: Nica Mann Chief Complaint: Left foot swelling and redness Mitchel Augustin is a 58 years old man with past medical history significant for type 2 diabetes mellitus on insulin, hyperlipidemia, peripheral vascular disease and obesity presents to the emergency department complaining of left foot swelling and worsening redness that he noted yesterday. He denied any fever or chills. Patient recently underwent left 5th toe amputation at [facility] due to osteomyelitis and received a course of vancomycin IV which he was completed last week. He was noted to have drainage from the surgical site by REPRODUCTION TECHNICIAN. He reported no acute cardiopulmonary, gastrointestinal or genitourinary symptoms. In the ED, he was found to have normal vital signs. Blood workup was remarkable for leukocytosis of 13.0 and elevated CRP, 23.85. There is no lactic acidosis. There are no electrolyte imbalances and renal function is normal. LFTs are unremarkable. Left foot x-ray showed no radiographic signs of osteomyelitis. ED tx: Acetaminophen 900 75 mg p.o., NS 1 L bolus, vancomycin 2 g IV, cefepime 2 g IV Review of Systems 2 Review of Systems: All 12 systems were reviewed and normal except as noted in HPI. [facility] Medical History PAD (peripheral artery disease) Non-healing wound Sepsis 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 Fever Nocturnal hypoxemia Diabetes Restrictive lung disease RIGOBERTO (obstructive sleep apnea) Morbid obesity Surgical History Hx of amputation Hx of right inguinal hernia repair Hx of eye surgery Social History Household Members: Family Do you presently have visiting nurse or other home services: No Alcohol intake: current Alcohol intake frequency: does not drink Patient Tobacco Use Status: Former Tobacco user Smoked in Last 30 Days: No Second Hand Smoke Exposure: No Use of substances other than those prescribed or required for medical reasons: No Advance Directives: No Advance Directives Information Provided: No service: No Meds Allergies Allergy/AdvReac Type Severity Reaction Status Date / Time penicillin G Allergy Unknown Unknown Verified 01/07/24 15:09 Active Medications: Current Medications Acetaminophen (Acetaminophen 325 Mg Tablet) 975 mg PO Q6H PRN PRN Reason: Pain, Mild (Pain Scale 1-3), fever or headache Enoxaparin Sodium (Enoxaparin Sodium 40 Mg/0.4 Ml Syringe) 40 mg SUBCUT Q24H [facility] Sodium Chloride (0.9 % Sodium Chloride Flush 3 Ml Syringe) 3 ml IVFLUSH QSHIFT [facility] Home Medications ?Medication ?Instructions ?Recorded ?Confirmed ?Last Taken ?Type blood sugar diagnostic (FreeStyle 10/07/20 10/24/23 1 Day Ago History Test strips) ~10/06/20 clopidogrel 75 mg tablet 1 tab PO DAILY 10/07/20 10/24/23 1 Day Ago History ~10/06/20 lisinopril 2.5 mg tablet 1 tab PO DAILY 10/07/20 10/24/23 1 Day Ago History ~10/06/20 simvastatin 40 mg tablet 40 mg PO QPM 10/07/20 10/24/23 1 Day Ago History ~10/06/20 pregabalin 300 mg capsule 300 mg PO BID 11/15/22 10/24/23 Unknown History semaglutide 0.25 mg or 0.5 mg (2 mg subcut 11/22/22 10/24/23 Unknown History mg/3 mL) subcutaneous pen injector (Ozempic) glipizide 10 mg tablet 10 mg PO BID 10/02/23 10/24/23 Unknown History metformin 1,000 mg tablet 1,000 mg PO BID 10/02/23 10/24/23 Unknown History Physical Exam 2 Vital Signs and Narrative: Vital Signs: Last Vital Signs Temp 98.4 F 01/08/24 01:28 Pulse 87 01/08/24 01:28 Resp 17 01/08/24 01:28 BP 102/70 01/08/24 01:28 Pulse Ox 95 01/08/24 01:28 O2 Del Method Room Air 01/08/24 01:28 BMI result Body Mass Index 40.0 Constitutional - Awake and Alert, No apparent distress. Pleasant. Cooperative. Obese. HEENT - PERRL, EOMI Heart - S1S2, RRR, No edema Lungs - Normal lung expansion, Normal respiratory effort, No respiratory distress, CTA bilaterally Abdomen - NT / ND; +BS; No rebound or guarding Extremities: Skin - Warm/Dry Neurological - Alert & oriented x3. No focal weakness grossly noted. Normal speech. Psychological - Appropriate affect Results Labs 01/07/24 17:32 01/07/24 17:32 Labs: Laboratory Results - last 24 hr 01/07/24 01/07/24 01/08/24 17:32 21:28 01:42 MCV 89.1 MCH 29.7 MCHC 33.3 RDW 13.8 Plt Count 272 MPV 9.6 Immature Gran % (Auto) 0.4 Neut % (Auto) 75.2 H Lymph % (Auto) 13.2 L Preble % (Auto) 8.4 Eos % (Auto) 2.3 Baso % (Auto) 0.5 Lymph # (Auto) 1.7 Preble # (Auto) 1.1 Eos # (Auto) 0.3 Baso # (Auto) 0.1 Abs Immat Gran (auto) 0.05 H Absolute Neuts (auto) 9.8 H Absolute Nucleated RBC 0.000 Nucleated RBC % (auto) 0.0 ESR 88 H Anion Gap 12 Estim Creat Clear Calc 92.2 Estimated GFR 60 POC Glucose 125 H 162 H Random Glucose 226 H Lactic Acid 1.2 Calcium 9.7 Total Bilirubin 1.2 H AST 15 ALT 11 Alkaline Phosphatase 90 C-Reactive Protein 23.85 H Total Protein 8.8 H Albumin 3.8 Imaging Radiologist's Impressions: Impressions Foot X-Ray 01/07/24 15:05 IMPRESSION: Postoperative changes . No radiographic signs of osteomyelitis Electronically signed by: Jose Carolina MD 01/07/2024 04:54 PM EDT RP Assessment and Plan (1) Cellulitis of left foot: Status: Acute (2) RIGOBERTO (obstructive sleep apnea): Status: Acute (3) Morbid obesity: Status: Acute Plan Mitchel Augustin is a 58 y/o man admitted with. * Left foot cellulitis, suspecting associated osteomyelitis and infected plantar diabetic ulcer. Admit to hospitalist service. She had wound culture. Continue empiric IV antibiotic therapy with ceftriaxone and vancomycin. Surgery consult. * Type 2 diabetes mellitus. BG checks before meals at bedtime. Continue Lantus, insulin sliding scale and glipizide. Diabetic diet. Check hemoglobin A1c. * Peripheral vascular disease. Continue Plavix and statin. * Obesity. BMI 40.0 kg/m2. Weight loss. He is on Ozempic. * Hyperlipidemia. Continue statin. * On lisinopril. Renal protective purposes. * Obstructive sleep apnea. Will order nocturnal CPAP. DVT prophylaxis: Lovenox Code status: Full Patient will need hospitalization for at least 2 midnights for left foot cellulitis and possible osteomyelitis treatment with IV antibiotics and evaluation by Surgical Service. Quality Stroke Does the patient have a stroke diagnosis?: No VTE Prior VTE?: No VTE Risk Level:: Medical - moderate - high VTE Device Contraindication: Treatment Not Indicated VTE Drug Contraindication: N/A - Med Ordered
[2024-01-08] MEDS: Acetaminophen 325 MG TABLET 975 MG PO (06:26)
[2024-01-08 07:08] VITALS: BP 117/61; PULSE 84; RESP 18; TEMP 36.7; O2SAT 97
[2024-01-08 07:35] LABS: Glucose, Whole Blood 148 mg/dL (60-115)
[2024-01-08 07:58] LABS: Creatinine Clr Calc Pharmacy 113.1; Estimated Glomerular Filt Rate > 60
[2024-01-08] MEDS: Enoxaparin Sodium 40 MG/0.4 ML SYRINGE SUBCUT (09:07)
[2024-01-08] MEDS: 0.9 % Sodium Chloride Flush 3 ML SYRINGE IVFLUSH ×3 (09:14→21:38)
--- NOTE | 2024-01-08 09:30 | PHA.MEDREC ---
Pharmacy Consult ? Medication Reconciliation Pharmacy has completed the medication reconciliation. Spoke to patient and confirmed medication list. Patient stated he finished his vanco infusion on 12/29/23, he no longer takes ibuprofen, he uses 80 units of basaglar at bedtime and he injects 2 mg of ozempic every friday (last dose 01/06/24). Last medication dose was yesterday morning.
[2024-01-08 11:22] LABS: Glucose, Whole Blood 250 mg/dL (60-115)
[2024-01-08] MEDS: Insulin Lispro 100 UNIT/ML 3 ML VIAL SUBCUT ×3 (11:56→21:27)
[2024-01-08] MEDS: Morphine Sulfate 2 MG/ML CARTRIDGE IVPUSH ×3 (12:32→21:34)
[2024-01-08] MEDS: gadobutroL 10 ML VIAL IVPUSH (14:26)
--- NOTE | 2024-01-08 14:50 | MHC.CM.PN ---
IMM delivered. Patient lives in a home w/ daughter, son in law, grandchildren. Reports his son in law assists w/ ADL's PRN. Daughter provides meals. Ambulates w/ walking boot. Uses electric scooter for long distances. Has a CPAP, but reports he has not used it in years and does not have a supplier for replacement supplies. Active w/ [facility] for SN/wound care. Recently finished a course of IV vanco at home, supplied by [facility]. PCP Shreyas Da Silva MD States his daughter, Michelle, is HCA. Copy of HCP requested. DP: Goal is home resume services. Awaiting surgical consult. If IV abx are needed, would prefer to use [facility] again. Daughter will transport. CM will continue to follow.
--- NOTE | 2024-01-08 15:09 | P.CONGS_ITS ---
History of Present Illness Consult details Consult date: 01/09/24 Requesting physician: Radha Navarro Narrative: THE PATIENT IS A 58-YEAR-OLD MALE WITH DIABETES WHO IS KNOWN TO me from wound care who had left lateral foot infection with underlying osteomyelitis and underwent extensive resection with primary closure at [facility] with Dr. Gabriel. Generally his wound was doing pretty well with just a small opening which Dr. Garbiel was following. He was discharged from the Wound Care Service last week after evaluating him and everything looks really quite good. Apparently the wound started getting worse last few days having more discharge and increased erythema coming all the way up his foot. As a result the patient comes into the emergency room and is admitted for diabetic foot infection with cellulitis. Review of Systems 2 Review of Systems: Yes all other systems are reviewed and are negative PMFSH Past Medical History Medical History PAD (peripheral artery disease) Non-healing wound Sepsis 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 Fever Nocturnal hypoxemia Diabetes Restrictive lung disease RIGOBERTO (obstructive sleep apnea) Morbid obesity Surgical History Surgical History Hx of amputation Hx of right inguinal hernia repair Hx of eye surgery Social History Social History Household Members: Family Housing: Apartment Do you presently have visiting nurse or other home services: Yes ([facility], wound clinic) Alcohol intake: current Alcohol intake frequency: does not drink Patient Tobacco Use Status: Former Tobacco user Smoked in Last 30 Days: No Second Hand Smoke Exposure: No Use of substances other than those prescribed or required for medical reasons: No Currently Displaying Signs/Symptoms of Drug Intoxication Withdrawal: No Have you been hit, kicked, punched, or otherwise hurt by someone within the past year? If so, by whom?: No Do you feel safe in your current relationship?: No Current Relationship Is there a partner from a previous relationship who is making you feel unsafe now?: No Are you made to feel afraid or neglected: No Advance Directives: No Advance Directives Information Provided: Yes Advance Directives on File: Yes Do you have a plan to hurt others: No Plan Recently lost weight without trying: No Eating poorly because of decreased appetite: No Nutrition Risks: No Nutritional Risk Poor oral hygiene: No service: No Meds Allergies Allergy/AdvReac Type Severity Reaction Status Date / Time penicillin G Allergy Unknown Unknown Verified 01/07/24 15:09 Active Medications: Current Medications Acetaminophen (Acetaminophen 325 Mg Tablet) 975 mg PO Q6H PRN PRN Reason: Pain, Mild (Pain Scale 1-3), fever or headache Last Admin: 01/08/24 06:26 Dose: 975 mg Enoxaparin Sodium (Enoxaparin Sodium 40 Mg/0.4 Ml Syringe) 40 mg SUBCUT Q24H [facility] Last Admin: 01/08/24 09:07 Dose: 40 mg Glucose (Glucose Gel 15 Gm Gel..Gram.) 15 gm PO Q15M PRN; Protocol PRN Reason: per Hypoglycemia Standing Ord. Dextrose (D10) 250 mls @ 750 mls/hr IV Q15M PRN; Protocol PRN Reason: per Hypoglycemia Standing Ord. Cefepime HCl 2 gm/ Sodium (Chloride) 50 mls @ 100 mls/hr IV Q8H [facility] Last Infusion: 01/08/24 12:31 Dose: Infused Vancomycin HCl 1,000 mg/ (Sodium Chloride) 270 mls @ 270 mls/hr IV Q12H [facility] Insulin Human Lispro (Insulin Lispro 100 Unit/Ml 3 Ml Vial) 0 unit SUBCUT QIDACHS [facility]; Protocol Last Admin: 01/08/24 11:56 Dose: 4 unit Morphine Sulfate (Morphine Sulfate 2 Mg/Ml Cartridge) 2 mg IVPUSH Q4H PRN; Protocol PRN Reason: Pain, Moderate(Pain Scale 4-6) Last Admin: 01/08/24 12:32 Dose: 2 mg Pharmacy Consult (Consult Rx Vancomycin Dosing) 1 each MISCELLANE DAILY PRN PRN Reason: Consult order Sodium Chloride (0.9 % Sodium Chloride Flush 3 Ml Syringe) 3 ml IVFLUSH QSHIFT [facility] Last Admin: 01/08/24 09:14 Dose: 3 ml Home Medications ?Medication ?Instructions ?Recorded ?Confirmed ?Last Taken ?Type blood sugar diagnostic (FreeStyle 10/07/20 10/24/23 1 Day Ago History Test strips) ~10/06/20 clopidogrel 75 mg tablet 1 tab PO DAILY 10/07/20 01/08/24 01/07/24 History lisinopril 2.5 mg tablet 1 tab PO DAILY 10/07/20 01/08/24 01/07/24 History simvastatin 40 mg tablet 40 mg PO DAILY@199910/07/20 01/08/24 01/06/24 History semaglutide 0.25 mg or 0.5 mg (2 2 mg subcut TU 11/22/22 01/08/24 01/06/24 History mg/3 mL) subcutaneous pen injector (Ozempic) glipizide 10 mg tablet 10 mg PO BID 10/02/23 01/08/24 01/07/24 History metformin 1,000 mg tablet 1,000 mg PO BID 10/02/23 01/08/24 01/07/24 History empagliflozin 10 mg tablet 10 mg PO DAILY 01/08/24 01/08/24 01/07/24 History (Jardiance) insulin glargine 100 unit/mL (3 80 unit subcut BEDTIME 01/08/24 01/08/24 01/06/24 History mL) subcutaneous pen (Basaglar KwikPen U-100 Insulin) Physical Exam 2 Vital Signs: Vital Signs: Last Vital Signs Temp 98.1 F 01/08/24 07:08 Pulse 84 01/08/24 07:08 Resp 18 01/08/24 07:08 BP 117/61 01/08/24 07:08 Pulse Ox 97 01/08/24 07:08 O2 Del Method Room Air 01/08/24 07:08 BMI result Body Mass Index 40.0 Const: General: cooperative, healthy appearing, comfortable and no acute distress Skin: Other: Patient's left foot going to lower leg area has some extensive erythema and some swelling and edema that has more prominent than it was last week. There is an opening along the incision area which when probing has some purulent material and tracts superiorly and medially. From around the 6 o'clock to 12 o'clock position. The area was irrigated and then packed. Results Labs 01/07/24 17:32 01/08/24 07:36 Labs: Abnormal lab results 01/07/24 01/07/24 01/08/24 Range/Units 17:32 21:28 01:42 WBC 13.0 H (4.8-10.8) X10*3/uL RBC 4.21 L (4.60-5.80) X10*6/uL Hgb 12.5 L (14.0-18.0) g/dl Hct 37.5 L (42.0-52.0) % Neut % (Auto) 75.2 H (45-73) % Lymph % (Auto) 13.2 L (20-40) % Abs Immat Gran (auto) 0.05 H (0.00-0.03) X10*3/uL Absolute Neuts (auto) 9.8 H (2.0-8.3) x10*3/uL ESR 88 H (0-15) MM/HR POC Glucose 125 H 162 H (60-115) mg/dL Random Glucose 226 H (60-115) mg/dL Total Bilirubin 1.2 H (0.0-1.0) mg/dL C-Reactive Protein 23.85 H (< or = 0.50) mg/dL Total Protein 8.8 H (6.5-8.0) g/dL 01/08/24 01/08/24 Range/Units 07:12 11:18 WBC (4.8-10.8) X10*3/uL RBC (4.60-5.80) X10*6/uL Hgb (14.0-18.0) g/dl Hct (42.0-52.0) % Neut % (Auto) (45-73) % Lymph % (Auto) (20-40) % Abs Immat Gran (auto) (0.00-0.03) X10*3/uL Absolute Neuts (auto) (2.0-8.3) x10*3/uL ESR (0-15) MM/HR POC Glucose 148 H 250 H (60-115) mg/dL Random Glucose (60-115) mg/dL Total Bilirubin (0.0-1.0) mg/dL C-Reactive Protein (< or = 0.50) mg/dL Total Protein (6.5-8.0) g/dL Short CBC 01/07/24 Range/Units 17:32 WBC 13.0 H (4.8-10.8) X10*3/uL Hgb 12.5 L (14.0-18.0) g/dl Hct 37.5 L (42.0-52.0) % Plt Count 272 (160-400) X10*3/uL BMP 09/18/24 09/19/24 17:32 07:36 Sodium 136 Potassium 4.1 Chloride 100 Carbon Dioxide 28 BUN 15 Creatinine 1.25 1.02 Calcium 9.7 Liver Function 01/07/24 Range/Units 17:32 Total Bilirubin 1.2 H (0.0-1.0) mg/dL AST 15 (5-37) U/L ALT 11 (0-40) U/L Alkaline Phosphatase 90 (39-117) U/L Albumin 3.8 (3.5-5.0) g/dL All other labs normal. Imaging Additional studies: Ordering Physician: Nica Barkley MD Date of Service: 01/08/24 Procedure(s): MR foot LT wo/w con Accession Number(s): [id number] cc: Shreyas Da Silva MD; Nica Barkley MD~ EXAMINATION: MR FOOT WITHOUT AND WITH CONTRAST, LEFT CLINICAL INFORMATION: Left foot edema. Erythema. Plantar wound infection. COMPARISON: Radiograph dated 01/07/2024. TECHNIQUE: MRI of the left foot was performed before and after the intravenous administration of 10 mL Gadavist on a high-field scanner. FINDINGS: The fifth metatarsal and toe are absent, as are the distal half of the fourth metatarsal and a small portion of the third metatarsal shaft. There is a plantar/lateral wound at the left forefoot/midfoot in the region of prior surgery measuring 1.5 x 2.4 cm with surrounding skin thickening and hyperenhancement. There is a fluid-containing tract deep to this, contiguous with a 4 x 1.2 x 3.5 cm complex peripherally enhancing collection, most consistent with a abscess. This abscess abuts the plantar/lateral margins of the remaining portions of the fourth and third metatarsal bases. Marrow edema signal and postcontrast enhancement are present in both. There is loss of fat signal intensity within the distal margin of the fourth metatarsal base on T1-weighted images, consistent with osteomyelitis. There is a high probability of osteomyelitis in the distal margin third metatarsal base based upon the marrow signal abnormality in the adjacent abscess. Additional edema signal and enhancement are noted at the proximal margin of the shaft fragment of the third metatarsal, also concerning for osteomyelitis in the context of the adjacent abscess. No additional sites of osteomyelitis are identified. 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 There is fatty atrophy of the intrinsic foot musculature with increased signal intensity on T2-weighted images this is most typical of denervation atrophy from diabetic neuropathy. Soft tissues are diffusely swollen with associated subcutaneous edema. No appreciable tenosynovitis. MR/MR foot LT wo/w con IMPRESSION: 1. A 4 cm abscess at the plantar/lateral margin of the left forefoot/midfoot with a contiguous plantar wound. 2. Osteomyelitis at the distal margin of the fourth metatarsal base. The margins of the third metatarsal fragments are also edematous and enhancing which, in the context of the adjacent abscess, constitutes a high probability of acute osteomyelitis. Electronically signed by: Juanpablo Warren MD 01/08/2024 03:49 PM EDT Dictated By: Juanpablo Warren MD Signed By: <Electronically signed by Juanpablo Warren MD in OV> 01/08/24 1549 Assessment and Plan (1) Diabetic foot infection: Status: Acute Plan 58-year-old male recently status post left lateral foot resection for osteomyelitis at [facility] with Dr. Gabriel. Postoperatively initially did very well except for now the wound has opened there is a deeper open space consistent with a abscess. The area was probed and irrigated in his guide rail cleaner. Area will be packed with Nu Gauze and plan to change daily. IV antibiotics as prescribed by medical team and follow up on culture results. Apparently the MRI done today shows findings consistent with acute osteomyelitis. Procedures Date of Service Date of Service: 01/09/24
--- NOTE | 2024-01-08 15:35 | HO.WOUND ---
Wound consult: Attempted Arrival to bedside patient reports he was just seen by Dr. Ochoa - will defer topical treatments to Dr. Lopes.
[2024-01-08 16:00] VITALS: BP 157/74; PULSE 92; RESP 16; TEMP 36.8; O2SAT 98
--- NOTE | 2024-01-08 16:06 | PM.EVENT ---
Event Note Date of Service: 01/08/24 Event Note: Patient already seen by hospitalist team this morning Seen and examined again Still has lot of left foot pain Physical exam nebs per H and P Assessment and plan as per H and P: Left foot cellulitis/with plantar ulcer Continue IV antibiotics, vascular consult IV pain medication for pain control. Time Spent With Patient Time: Total time managing care of this patient today ____ minutes.
[2024-01-08] MEDS: vancomycin HCL 1,000 MG in 0.9 % Sodium Chloride 250 ML 270 MG IV (16:25)
[2024-01-08 16:29] LABS: Glucose, Whole Blood 221 mg/dL (60-115)
[2024-01-08] MEDS: Atorvastatin Calcium 20 MG TABLET PO (19:42)
[2024-01-08 19:56] VITALS: BP 138/82; PULSE 112; RESP 18; TEMP 37; O2SAT 97
--- NOTE | 2024-01-08 20:13 | PC.RT ---
pt refused CPAP
[2024-01-08 20:29] LABS: Glucose, Whole Blood 209 mg/dL (60-115)
[2024-01-08] MEDS: Insulin Glargine,Hum.rec.anlog 100 UNIT/ML 10 ML VIAL 80 UNIT SUBCUT (21:28)
[2024-01-09] MEDS: cefEPime HCl 2 GM in 0.9 % Sodium Chloride 50 ML IV ×3 (03:08→19:55)
[2024-01-09] MEDS: vancomycin HCL 1,000 MG in 0.9 % Sodium Chloride 250 ML 270 MG IV ×2 (03:55→16:29)
[2024-01-09 03:57] VITALS: BP 131/62; PULSE 98; RESP 18; TEMP 37.2; O2SAT 95
[2024-01-09 05:57] LABS: MANUAL DIFF FLAG NO
[2024-01-09 06:02] LABS: Basophils Absolute Auto 0.1 X10*3/uL (0.0-0.2); Basophils Percent Auto 0.6 % (0-2); Eosinophils Absolute Auto 0.4 X10*3/uL (0.0-0.4); Eosinophils Percent Auto 3.5 % (0-4); Hematocrit 34.5 % (42.0-52.0); Hemoglobin 11.7 g/dl (14.0-18.0); Imm Gran Abs Auto 0.06 X10*3/uL (0.00-0.03); Imm Gran Pct Auto 0.6 % (0.0-0.4); Lymphocytes Absolute Auto 1.3 X10*3/uL (1.2-4.9); Lymphocytes Percent Auto 12.6 % (20-40); Mean Corpuscular HGB Conc 33.9 g/dl (31.0-36.0); Mean Corpuscular Volume 88.5 fL (80.0-98.0); Mean Platelet Volume 9.9 fL (9.4-12.4); Monocytes Percent Auto 9.5 % (2-11); Neutrophils Absolute Auto 7.4 x10*3/uL (2.0-8.3); Neutrophils Percent Auto 73.2 % (45-73); Platelet Count 276 X10*3/uL (160-400); Red Cell Distribution Width 13.3 % (11.0-16.0)
[2024-01-09 06:17] LABS: Anion Gap 12 (12-20); Blood Urea Nitrogen 17 mg/dL (9-16); Calcium 9.1 mg/dL (8.4-10.2); Carbon Dioxide 25 mmol/L (22-29); Chloride 101 mmol/L (96-108); Creatinine Clr Calc Pharmacy 97.7; Estimated Glomerular Filt Rate > 60; Glucose Random 195 mg/dL (60-115); Sodium 134 mmol/L (135-145)
[2024-01-09 07:25] LABS: Estimated Average Glucose 169 mg/dL; Hemoglobin A1c % 7.5 % (<6.0)
[2024-01-09 07:29] VITALS: BP 122/74; PULSE 92; RESP 16; TEMP 37; O2SAT 95
--- NOTE | 2024-01-09 07:51 | P.PNIM_ITS ---
Subjective Subjective Date of Service: 01/09/24 Interval History: foot osteo Review of Systems pain somewhat improving no fevers or chills Physical Exam 2 Vital Signs: Vital Signs: Last Vital Signs Temp 98.6 F 01/09/24 07:29 Pulse 92 01/09/24 07:29 Resp 16 01/09/24 07:29 BP 122/74 01/09/24 07:29 Pulse Ox 95 01/09/24 07:29 O2 Del Method Room Air 01/09/24 07:29 BMI result Body Mass Index 40.0 Appearance: Alert.? Oriented X3.? cvs: [id number], [id number] . res: clear to auscultation ,no rhonchii or wheezing abd: no rebound or guarding ,nt, bs present. ext : left foot erythema/swelling seems similar neuro: axo3 , nonfocal. Objective Data Active Medications Acetaminophen (Acetaminophen 325 Mg Tablet) 975 mg PO Q6H PRN PRN Reason: Pain, Mild (Pain Scale 1-3), fever or headache Last Admin: 01/08/24 06:26 Dose: 975 mg Documented By: THOR Atorvastatin Calcium (Atorvastatin Calcium 20 Mg Tablet) 20 mg PO DAILY@1999 [facility] Last Admin: 01/08/24 19:42 Dose: 20 mg Documented By: KILO Clopidogrel Bisulfate (Clopidogrel Bisulfate 75 Mg Tablet) 75 mg PO DAILY [facility] Empagliflozin (Empagliflozin 10 Mg Tablet) 10 mg PO DAILY [facility] Enoxaparin Sodium (Enoxaparin Sodium 40 Mg/0.4 Ml Syringe) 40 mg SUBCUT Q24H [facility] Last Admin: 01/08/24 09:07 Dose: 40 mg Documented By: ALEJA Glucose (Glucose Gel 15 Gm Gel..Gram.) 15 gm PO Q15M PRN; Protocol PRN Reason: per Hypoglycemia Standing Ord. Dextrose (D10) 250 mls @ 750 mls/hr IV Q15M PRN; Protocol PRN Reason: per Hypoglycemia Standing Ord. Cefepime HCl 2 gm/ Sodium (Chloride) 50 mls @ 100 mls/hr IV Q8H [facility] Last Infusion: 01/09/24 03:51 Dose: Infused Documented By: KILO Vancomycin HCl 1,000 mg/ (Sodium Chloride) 270 mls @ 270 mls/hr IV Q12H [facility] Last Infusion: 01/09/24 05:02 Dose: Infused Documented By: KILO Insulin Glargine (Insulin Glargine,Hum.Rec.Anlog 100 Unit/Ml 10 Ml Vial) 80 unit SUBCUT BEDTIME [facility] Last Admin: 01/08/24 21:28 Dose: 80 unit Documented By: KILO Insulin Human Lispro (Insulin Lispro 100 Unit/Ml 3 Ml Vial) 0 unit SUBCUT QIDACHS [facility]; Protocol Last Admin: 01/08/24 21:27 Dose: 4 unit Documented By: KILO Lisinopril (Lisinopril 2.5 Mg Tablet) 2.5 mg PO DAILY [facility]; Protocol Morphine Sulfate (Morphine Sulfate 2 Mg/Ml Cartridge) 2 mg IVPUSH Q4H PRN; Protocol PRN Reason: Pain, Moderate(Pain Scale 4-6) Last Admin: 01/08/24 21:34 Dose: 2 mg Documented By: KLIO Non-Formulary Medication (Semaglutide [Ozempic]) 2 mg SUBCUT TU [facility] Pharmacy Consult (Consult Rx Vancomycin Dosing) 1 each MISCELLANE DAILY PRN PRN Reason: Consult order Sodium Chloride (0.9 % Sodium Chloride Flush 3 Ml Syringe) 3 ml IVFLUSH QSHIFT [facility] Last Admin: 01/08/24 21:38 Dose: 3 ml Documented By: KILO Labs 01/09/24 05:40 01/09/24 05:40 Labs: Laboratory Results - last 24 hr 01/08/24 01/08/24 01/08/24 07:36 11:18 16:19 MCV MCH MCHC RDW Plt Count MPV Immature Gran % (Auto) Neut % (Auto) Lymph % (Auto) [place] % (Auto) Eos % (Auto) Baso % (Auto) Lymph # (Auto) [place] # (Auto) Eos # (Auto) Baso # (Auto) Abs Immat Gran (auto) Absolute Neuts (auto) Absolute Nucleated RBC Nucleated RBC % (auto) Anion Gap Estim Creat Clear Calc 113.1 Estimated GFR > 60 POC Glucose 250 H 221 H Random Glucose Estimat Average Glucose Hemoglobin A1c % Calcium 01/08/24 01/09/24 20:25 05:40 MCV 88.5 MCH 30.0 MCHC 33.9 RDW 13.3 Plt Count 276 MPV 9.9 Immature Gran % (Auto) 0.6 H Neut % (Auto) 73.2 H Lymph % (Auto) 12.6 L [place] % (Auto) 9.5 Eos % (Auto) 3.5 Baso % (Auto) 0.6 Lymph # (Auto) 1.3 [place] # (Auto) 1.0 Eos # (Auto) 0.4 Baso # (Auto) 0.1 Abs Immat Gran (auto) 0.06 H Absolute Neuts (auto) 7.4 Absolute Nucleated RBC 0.000 Nucleated RBC % (auto) 0.0 Anion Gap 12 Estim Creat Clear Calc 97.7 Estimated GFR > 60 POC Glucose 209 H Random Glucose 195 H Estimat Average Glucose 169 Hemoglobin A1c % 7.5 H Calcium 9.1 D Microbiology Microbiology Results: Microbiology 01/07/24 19:35 Blood Culture - Preliminary Blood - Venous No growth after 24 hours. 01/07/24 17:32 Blood Culture - Preliminary Blood - Venous No growth after 24 hours. 01/08/24 06:20 Gram Stain - Final Foot - Drainage Assessment and Plan (1) Cellulitis of left foot: Status: Acute Assessment and Plan: 58 y/o man admitted with. Left foot cellulitis, suspecting associated osteomyelitis and infected plantar diabetic ulcer. esr 88,crp 23.8 blood cultures neg@24hrs mri-4 cm abscess at the plantar/lateral margin of the left forefoot/midfoot with a contiguous plantar wound. Osteomyelitis at the distal margin of the fourth metatarsal base. The margins of the third metatarsal fragments are also edematous and enhancing which, in the context of the adjacent abscess, constitutes a high probability of acute osteomyelitis. continue IV antibiotic therapy with ceftriaxone and vancomycin. surgery following Type 2 diabetes mellitus. hemoglobin A1c 7.5. BG checks before meals at bedtime. Continue Lantus, insulin sliding scale and glipizide. Diabetic diet. Peripheral vascular disease. Continue Plavix and statin. Obesity. BMI 40.0 kg/m2. Weight loss. He is on Ozempic. Hyperlipidemia. Continue statin.On lisinopril. Obstructive sleep apnea. Will order nocturnal CPAP. mprbid obesity -encouraged to lose weight and cut down calories. DVT prophylaxis: Lovenox Code status: Full ongoing need hospitalization for left foot cellulitis and osteomyelitis treatment with IV antibiotics and evaluation by Surgical Service Quality Stroke Does the patient have a stroke diagnosis?: No VTE Prior VTE?: No VTE Risk Level:: Medical - moderate - high VTE Device Contraindication: Treatment Not Indicated VTE Drug Contraindication: N/A - Med Ordered
[2024-01-09 08:01] LABS: Glucose, Whole Blood 199 mg/dL (60-115)
[2024-01-09] MEDS: Morphine Sulfate 2 MG/ML CARTRIDGE IVPUSH ×2 (08:10→15:40)
[2024-01-09] MEDS: Insulin Lispro 100 UNIT/ML 3 ML VIAL SUBCUT ×4 (08:11→19:59)
[2024-01-09] MEDS: Clopidogrel Bisulfate 75 MG TABLET PO (08:12)
[2024-01-09] MEDS: Enoxaparin Sodium 40 MG/0.4 ML SYRINGE SUBCUT (08:12)
[2024-01-09] MEDS: Empagliflozin 10 MG TABLET PO (08:12)
[2024-01-09] MEDS: 0.9 % Sodium Chloride Flush 3 ML SYRINGE IVFLUSH ×3 (08:12→20:00)
[2024-01-09] MEDS: lisinopriL 2.5 MG TABLET PO (08:12)
[2024-01-09 11:24] LABS: Glucose, Whole Blood 218 mg/dL (60-115)
--- NOTE | 2024-01-09 12:34 | MHC.CM.PN ---
EMR reviewed and per MD rounds, pt is not medically cleared for discharge due to management of cellulitis and osteomyelitis, with blood cultures pending.
[2024-01-09 15:08] LABS: Vancomycin Random 13.7 mcg/mL (15-20)
[2024-01-09 15:40] VITALS: RESP 18
[2024-01-09 16:00] VITALS: BP 145/75; PULSE 91; RESP 18; TEMP 36.8; O2SAT 98
[2024-01-09 16:16] LABS: Glucose, Whole Blood 241 mg/dL (60-115)
--- NOTE | 2024-01-09 18:03 | PM.PNGS ---
Subjective Subjective Date of Service: 01/09/24 Interval history: No new complaints Denies severe pain States left foot feels ?puffy? Physical Exam Vital Signs: Vital Signs: Last Vital Signs Temp 98.2 F 01/09/24 16:00 Pulse 91 01/09/24 16:00 Resp 18 01/09/24 16:00 BP 145/75 H 01/09/24 16:00 Pulse Ox 98 01/09/24 16:00 O2 Del Method Room Air 01/09/24 16:00 BMI result Body Mass Index 40.0 Const: General: comfortable and no acute distress Resp: Effort & Inspection: normal respiratory effort Extrem: Other: Some cellulitis of the left foot, wound on the plantar aspect, no pus, appears clean Objective Data Active Medications Acetaminophen (Acetaminophen 325 Mg Tablet) 975 mg PO Q6H PRN PRN Reason: Pain, Mild (Pain Scale 1-3), fever or headache Last Admin: 01/08/24 06:26 Dose: 975 mg Documented By: THOR Atorvastatin Calcium (Atorvastatin Calcium 20 Mg Tablet) 20 mg PO DAILY@1999 [facility] Last Admin: 01/08/24 19:42 Dose: 20 mg Documented By: KILO Clopidogrel Bisulfate (Clopidogrel Bisulfate 75 Mg Tablet) 75 mg PO DAILY [facility] Last Admin: 01/09/24 08:12 Dose: 75 mg Documented By: ALBERTO Empagliflozin (Empagliflozin 10 Mg Tablet) 10 mg PO DAILY [facility] Last Admin: 01/09/24 08:12 Dose: 10 mg Documented By: ALBERTO Enoxaparin Sodium (Enoxaparin Sodium 40 Mg/0.4 Ml Syringe) 40 mg SUBCUT Q24H [facility] Last Admin: 01/09/24 08:12 Dose: 40 mg Documented By: ALBERTO Glucose (Glucose Gel 15 Gm Gel..Gram.) 15 gm PO Q15M PRN; Protocol PRN Reason: per Hypoglycemia Standing Ord. Dextrose (D10) 250 mls @ 750 mls/hr IV Q15M PRN; Protocol PRN Reason: per Hypoglycemia Standing Ord. Cefepime HCl 2 gm/ Sodium (Chloride) 50 mls @ 100 mls/hr IV Q8H [facility] Last Infusion: 01/09/24 11:36 Dose: Infused Documented By: ALBERTO Vancomycin HCl 1,000 mg/ (Sodium Chloride) 270 mls @ 270 mls/hr IV Q12H [facility] Last Infusion: 01/09/24 17:36 Dose: Infused Documented By: JESSICA Insulin Glargine (Insulin Glargine,Hum.Rec.Anlog 100 Unit/Ml 10 Ml Vial) 80 unit SUBCUT BEDTIME [facility] Last Admin: 01/08/24 21:28 Dose: 80 unit Documented By: KILO Insulin Human Lispro (Insulin Lispro 100 Unit/Ml 3 Ml Vial) 0 unit SUBCUT QIDACHS [facility]; Protocol Last Admin: 01/09/24 16:29 Dose: 4 unit Documented By: JESSICA Lisinopril (Lisinopril 2.5 Mg Tablet) 2.5 mg PO DAILY [facility]; Protocol Last Admin: 01/09/24 08:12 Dose: 2.5 mg Documented By: ALBERTO Morphine Sulfate (Morphine Sulfate 2 Mg/Ml Cartridge) 2 mg IVPUSH Q4H PRN; Protocol PRN Reason: Pain, Moderate(Pain Scale 4-6) Last Admin: 01/09/24 15:40 Dose: 2 mg Documented By: JESSICA Non-Formulary Medication (Semaglutide [Ozempic]) 2 mg SUBCUT TU [facility] Pharmacy Consult (Consult Rx Vancomycin Dosing) 1 each MISCELLANE DAILY PRN PRN Reason: Consult order Sodium Chloride (0.9 % Sodium Chloride Flush 3 Ml Syringe) 3 ml IVFLUSH QSHIFT [facility] Last Admin: 01/09/24 15:43 Dose: 3 ml Documented By: JESSICA Labs 01/09/24 05:40 01/09/24 05:40 Labs: Laboratory Results - last 24 hr 01/08/24 01/09/24 01/09/24 20:25 05:40 07:57 MCV 88.5 MCH 30.0 MCHC 33.9 RDW 13.3 Plt Count 276 MPV 9.9 Immature Gran % (Auto) 0.6 H Neut % (Auto) 73.2 H Lymph % (Auto) 12.6 L [place] % (Auto) 9.5 Eos % (Auto) 3.5 Baso % (Auto) 0.6 Lymph # (Auto) 1.3 [place] # (Auto) 1.0 Eos # (Auto) 0.4 Baso # (Auto) 0.1 Abs Immat Gran (auto) 0.06 H Absolute Neuts (auto) 7.4 Absolute Nucleated RBC 0.000 Nucleated RBC % (auto) 0.0 Anion Gap 12 Estim Creat Clear Calc 97.7 Estimated GFR > 60 POC Glucose 209 H 199 H Random Glucose 195 H Estimat Average Glucose 169 Hemoglobin A1c % 7.5 H Calcium 9.1 D Random Vancomycin 01/09/24 01/09/24 01/09/24 11:19 13:59 16:11 MCV MCH MCHC RDW Plt Count MPV Immature Gran % (Auto) Neut % (Auto) Lymph % (Auto) [place] % (Auto) Eos % (Auto) Baso % (Auto) Lymph # (Auto) [place] # (Auto) Eos # (Auto) Baso # (Auto) Abs Immat Gran (auto) Absolute Neuts (auto) Absolute Nucleated RBC Nucleated RBC % (auto) Anion Gap Estim Creat Clear Calc Estimated GFR POC Glucose 218 H 241 H Random Glucose Estimat Average Glucose Hemoglobin A1c % Calcium Random Vancomycin 13.7 L Microbiology Microbiology Results: Microbiology 01/08/24 06:20 Gram Stain - Final Foot - Drainage Routine Culture - Preliminary Culture in progress. 01/07/24 19:35 Blood Culture - Preliminary Blood - Venous No growth after 24 hours. 01/07/24 17:32 Blood Culture - Preliminary Blood - Venous No growth after 24 hours. Procedures Date of Service Date of Service: 01/09/24 Progress Note: A&P Assessment and plan (1) Cellulitis of left foot: Status: Acute Assessment and Plan: Has open wound on the plantar aspect from bone resection by addiction medicine physician with some cellulitic changes Continue IV antibiotics Left leg elevation Looks well overall Time Spent With Patient Time: Total time managing care of this patient today ____ minutes. Quality Stroke Does the patient have a stroke diagnosis?: No VTE Prior VTE?: No VTE Risk Level:: Medical - moderate - high VTE Device Contraindication: Treatment Not Indicated VTE Drug Contraindication: N/A - Med Ordered
[2024-01-09 19:39] VITALS: BP 141/73; PULSE 95; RESP 16; TEMP 36.6; O2SAT 97
[2024-01-09 19:45] LABS: Glucose, Whole Blood 185 mg/dL (60-115)
[2024-01-09] MEDS: Atorvastatin Calcium 20 MG TABLET PO (19:55)
[2024-01-09] MEDS: Insulin Glargine,Hum.rec.anlog 100 UNIT/ML 10 ML VIAL 80 UNIT SUBCUT (19:56)
[2024-01-10] MEDS: cefEPime HCl 2 GM in 0.9 % Sodium Chloride 50 ML IV ×3 (02:57→18:08)
[2024-01-10] MEDS: vancomycin HCL 1,000 MG in 0.9 % Sodium Chloride 250 ML 270 MG IV ×2 (02:58→15:22)
[2024-01-10] MEDS: Morphine Sulfate 2 MG/ML CARTRIDGE IVPUSH ×2 (03:39→11:38)
[2024-01-10 03:57] VITALS: BP 124/71; PULSE 107; RESP 16; TEMP 36.3; O2SAT 92
[2024-01-10 07:23] VITALS: BP 130/69; PULSE 80; RESP 18; TEMP 36.5; O2SAT 93
[2024-01-10 07:29] LABS: Glucose, Whole Blood 183 mg/dL (60-115)
[2024-01-10 07:47] LABS: Creatinine Clr Calc Pharmacy 91.5; Estimated Glomerular Filt Rate 59
[2024-01-10] MEDS: Insulin Lispro 100 UNIT/ML 3 ML VIAL SUBCUT ×4 (07:55→21:37)
[2024-01-10 08:24] VITALS: BP 130/69
[2024-01-10] MEDS: Enoxaparin Sodium 40 MG/0.4 ML SYRINGE SUBCUT (08:24)
[2024-01-10] MEDS: lisinopriL 2.5 MG TABLET PO (08:24)
[2024-01-10] MEDS: 0.9 % Sodium Chloride Flush 3 ML SYRINGE IVFLUSH ×3 (08:25→21:39)
[2024-01-10] MEDS: Empagliflozin 10 MG TABLET PO (08:25)
[2024-01-10] MEDS: Clopidogrel Bisulfate 75 MG TABLET PO (08:30)
--- NOTE | 2024-01-10 08:59 | HO.PM.IMPN ---
Subjective Subjective Date of Service: 01/10/24 Interval History: foot osteo Review of Systems pain somewhat improving no fevers or chills Physical Exam Vital Signs: Vital Signs: Last Vital Signs Temp 97.7 F 01/10/24 07:23 Pulse 80 01/10/24 07:23 Resp 18 01/10/24 07:23 BP 130/69 01/10/24 08:24 Pulse Ox 93 01/10/24 07:23 O2 Del Method Room Air 01/10/24 07:23 BMI result Body Mass Index 40.0 Appearance: Alert.? Oriented X3.? cvs: rrr, [id number] . res: clear to auscultation ,no rhonchii or wheezing abd: no rebound or guarding ,nt, bs present. ext : left foot erythema/swelling seems similar neuro: axo3 , nonfocal. Objective Data Active Medications Acetaminophen (Acetaminophen 325 Mg Tablet) 975 mg PO Q6H PRN PRN Reason: Pain, Mild (Pain Scale 1-3), fever or headache Last Admin: 01/08/24 06:26 Dose: 975 mg Documented By: THOR Atorvastatin Calcium (Atorvastatin Calcium 20 Mg Tablet) 20 mg PO DAILY@1999 [facility] Last Admin: 01/09/24 19:55 Dose: 20 mg Documented By: KILO Clopidogrel Bisulfate (Clopidogrel Bisulfate 75 Mg Tablet) 75 mg PO DAILY [facility] Last Admin: 01/10/24 08:30 Dose: 75 mg Documented By: GAGAN Empagliflozin (Empagliflozin 10 Mg Tablet) 10 mg PO DAILY [facility] Last Admin: 01/10/24 08:25 Dose: 10 mg Documented By: GAGAN Enoxaparin Sodium (Enoxaparin Sodium 40 Mg/0.4 Ml Syringe) 40 mg SUBCUT Q24H [facility] Last Admin: 01/10/24 08:24 Dose: 40 mg Documented By: GAGAN Glucose (Glucose Gel 15 Gm Gel..Gram.) 15 gm PO Q15M PRN; Protocol PRN Reason: per Hypoglycemia Standing Ord. Dextrose (D10) 250 mls @ 750 mls/hr IV Q15M PRN; Protocol PRN Reason: per Hypoglycemia Standing Ord. Cefepime HCl 2 gm/ Sodium (Chloride) 50 mls @ 100 mls/hr IV Q8H [facility] Last Infusion: 01/10/24 03:29 Dose: Infused Documented By: KILO Vancomycin HCl 1,000 mg/ (Sodium Chloride) 270 mls @ 270 mls/hr IV Q12H [facility] Last Infusion: 01/10/24 04:36 Dose: Infused Documented By: KILO Insulin Glargine (Insulin Glargine,Hum.Rec.Anlog 100 Unit/Ml 10 Ml Vial) 80 unit SUBCUT BEDTIME [facility] Last Admin: 01/09/24 19:56 Dose: 80 unit Documented By: KILO Insulin Human Lispro (Insulin Lispro 100 Unit/Ml 3 Ml Vial) 0 unit SUBCUT QIDACHS [facility]; Protocol Last Admin: 01/10/24 07:55 Dose: 2 unit Documented By: GAGAN Lisinopril (Lisinopril 2.5 Mg Tablet) 2.5 mg PO DAILY [facility]; Protocol Last Admin: 01/10/24 08:24 Dose: 2.5 mg Documented By: GAGAN Morphine Sulfate (Morphine Sulfate 2 Mg/Ml Cartridge) 2 mg IVPUSH Q4H PRN; Protocol PRN Reason: Pain, Moderate(Pain Scale 4-6) Last Admin: 01/10/24 03:39 Dose: 2 mg Documented By: KILO Non-Formulary Medication (Semaglutide [Ozempic]) 2 mg SUBCUT TU [facility] Pharmacy Consult (Consult Rx Vancomycin Dosing) 1 each MISCELLANE DAILY PRN PRN Reason: Consult order Sodium Chloride (0.9 % Sodium Chloride Flush 3 Ml Syringe) 3 ml IVFLUSH QSHIFT [facility] Last Admin: 01/10/24 08:25 Dose: 3 ml Documented By: GAGAN Labs 01/09/24 05:40 01/10/24 05:52 Labs: Laboratory Results - last 24 hr 01/09/24 01/09/24 01/09/24 11:19 13:59 16:11 Estim Creat Clear Calc Estimated GFR POC Glucose 218 H 241 H Random Vancomycin 13.7 L 01/09/24 01/10/24 01/10/24 19:41 05:52 07:26 Estim Creat Clear Calc 91.5 Estimated GFR 59 POC Glucose 185 H 183 H Random Vancomycin Microbiology Microbiology Results: Microbiology 01/08/24 06:20 Gram Stain - Final Foot - Drainage Routine Culture - Preliminary Culture in progress. 01/07/24 19:35 Blood Culture - Preliminary Blood - Venous No growth after 48 hours. 01/07/24 17:32 Blood Culture - Preliminary Blood - Venous No growth after 48 hours. Assessment and Plan (1) Cellulitis of left foot: Status: Acute Assessment and Plan: 58 y/o man admitted with. Left foot cellulitisand acute osteomyelitis od 4th metatarsal as well as possible 3metatarsal also and infected plantar diabetic ulcer. esr 88,crp 23.8 blood cultures neg@48 hrs mri-4 cm abscess at the plantar/lateral margin of the left forefoot/midfoot with a contiguous plantar wound. Osteomyelitis at the distal margin of the fourth metatarsal base. The margins of the third metatarsal fragments are also edematous and enhancing which, in the context of the adjacent abscess, constitutes a high probability of acute osteomyelitis. continue IV antibiotic therapy with ceftriaxone and vancomycin. Id eval added for antibbiotics management,surgery following-cellulitis Type 2 diabetes mellitus. hemoglobin A1c 7.5. BG checks before meals at bedtime. Continue Lantus, insulin sliding scale and glipizide. Diabetic diet. Peripheral vascular disease. Continue Plavix and statin. Obesity. BMI 40.0 kg/m2. Weight loss. He is on Ozempic. Hyperlipidemia. Continue statin.On lisinopril. Obstructive sleep apnea. Will order nocturnal CPAP. mprbid obesity -encouraged to lose weight and cut down calories. DVT prophylaxis: Lovenox. Code status: Full ongoing need hospitalization for left foot cellulitis and osteomyelitis treatment with IV antibiotics and evaluation by Surgical Service Quality Stroke Does the patient have a stroke diagnosis?: No VTE Prior VTE?: No VTE Risk Level:: Medical - moderate - high VTE Device Contraindication: Treatment Not Indicated VTE Drug Contraindication: N/A - Med Ordered
--- NOTE | 2024-01-10 09:44 | PM.PNGS ---
Subjective Subjective Date of Service: 01/10/24 Interval history: Denies complaints Denies significant pain Says he wants to go home Physical Exam Vital Signs: Vital Signs: Last Vital Signs Temp 97.7 F 01/10/24 07:23 Pulse 80 01/10/24 07:23 Resp 18 01/10/24 07:23 BP 130/69 01/10/24 08:24 Pulse Ox 93 01/10/24 07:23 O2 Del Method Room Air 01/10/24 07:23 BMI result Body Mass Index 40.0 Const: General: comfortable and no acute distress Resp: Effort & Inspection: normal respiratory effort Extrem: Other: Left foot - open wound on the plantar aspect clean, packing in place Cellulitis on the foot has improved significantly Objective Data Active Medications Acetaminophen (Acetaminophen 325 Mg Tablet) 975 mg PO Q6H PRN PRN Reason: Pain, Mild (Pain Scale 1-3), fever or headache Last Admin: 01/08/24 06:26 Dose: 975 mg Documented By: THOR Atorvastatin Calcium (Atorvastatin Calcium 20 Mg Tablet) 20 mg PO DAILY@1999 [facility] Last Admin: 01/09/24 19:55 Dose: 20 mg Documented By: KILO Clopidogrel Bisulfate (Clopidogrel Bisulfate 75 Mg Tablet) 75 mg PO DAILY [facility] Last Admin: 01/10/24 08:30 Dose: 75 mg Documented By: GAGAN Empagliflozin (Empagliflozin 10 Mg Tablet) 10 mg PO DAILY [facility] Last Admin: 01/10/24 08:25 Dose: 10 mg Documented By: GAGAN Enoxaparin Sodium (Enoxaparin Sodium 40 Mg/0.4 Ml Syringe) 40 mg SUBCUT Q24H [facility] Last Admin: 01/10/24 08:24 Dose: 40 mg Documented By: GAGAN Glucose (Glucose Gel 15 Gm Gel..Gram.) 15 gm PO Q15M PRN; Protocol PRN Reason: per Hypoglycemia Standing Ord. Dextrose (D10) 250 mls @ 750 mls/hr IV Q15M PRN; Protocol PRN Reason: per Hypoglycemia Standing Ord. Cefepime HCl 2 gm/ Sodium (Chloride) 50 mls @ 100 mls/hr IV Q8H [facility] Last Infusion: 01/10/24 03:29 Dose: Infused Documented By: KILO Vancomycin HCl 1,000 mg/ (Sodium Chloride) 270 mls @ 270 mls/hr IV Q12H [facility] Last Infusion: 01/10/24 04:36 Dose: Infused Documented By: KILO Insulin Glargine (Insulin Glargine,Hum.Rec.Anlog 100 Unit/Ml 10 Ml Vial) 80 unit SUBCUT BEDTIME [facility] Last Admin: 01/09/24 19:56 Dose: 80 unit Documented By: KILO Insulin Human Lispro (Insulin Lispro 100 Unit/Ml 3 Ml Vial) 0 unit SUBCUT QIDACHS [facility]; Protocol Last Admin: 01/10/24 07:55 Dose: 2 unit Documented By: GAGAN Lisinopril (Lisinopril 2.5 Mg Tablet) 2.5 mg PO DAILY [facility]; Protocol Last Admin: 01/10/24 08:24 Dose: 2.5 mg Documented By: GAGAN Morphine Sulfate (Morphine Sulfate 2 Mg/Ml Cartridge) 2 mg IVPUSH Q4H PRN; Protocol PRN Reason: Pain, Moderate(Pain Scale 4-6) Last Admin: 01/10/24 03:39 Dose: 2 mg Documented By: KILO Non-Formulary Medication (Semaglutide [Ozempic]) 2 mg SUBCUT TU [facility] Pharmacy Consult (Consult Rx Vancomycin Dosing) 1 each MISCELLANE DAILY PRN PRN Reason: Consult order Sodium Chloride (0.9 % Sodium Chloride Flush 3 Ml Syringe) 3 ml IVFLUSH QSHIFT [facility] Last Admin: 01/10/24 08:25 Dose: 3 ml Documented By: GAGAN Labs 01/09/24 05:40 01/10/24 05:52 Labs: Laboratory Results - last 24 hr 01/09/24 01/09/24 01/09/24 11:19 13:59 16:11 Estim Creat Clear Calc Estimated GFR POC Glucose 218 H 241 H Random Vancomycin 13.7 L 01/09/24 01/10/24 01/10/24 19:41 05:52 07:26 Estim Creat Clear Calc 91.5 Estimated GFR 59 POC Glucose 185 H 183 H Random Vancomycin Microbiology Microbiology Results: Microbiology 01/08/24 06:20 Gram Stain - Final Foot - Drainage Routine Culture - Preliminary Culture in progress. 01/07/24 19:35 Blood Culture - Preliminary Blood - Venous No growth after 48 hours. 01/07/24 17:32 Blood Culture - Preliminary Blood - Venous No growth after 48 hours. Procedures Date of Service Date of Service: 01/10/24 Progress Note: A&P Assessment and plan (1) Cellulitis of left foot: Status: Acute Assessment and Plan: I have changed the packing on his the wound Cellulitis much improved Continue daily wound care Antibiotics Will need VNA on discharge Recommend follow up with his trust administrative assistant on discharge Time Spent With Patient Time: Total time managing care of this patient today ____ minutes. Quality Stroke Does the patient have a stroke diagnosis?: No VTE Prior VTE?: No VTE Risk Level:: Medical - moderate - high VTE Device Contraindication: Treatment Not Indicated VTE Drug Contraindication: N/A - Med Ordered
[2024-01-10 11:11] LABS: Glucose, Whole Blood 185 mg/dL (60-115)
[2024-01-10 14:30] LABS: Vancomycin Random 17.2 mcg/mL (15-20)
--- NOTE | 2024-01-10 14:38 | HE.PHANOTE ---
re: vanco dosing continue with current regimen and recheck levels 01/10 @1400. May need a dose decrease if continues to have increases in vanco levels as he is slightly higher than expected at this time (trough today is 17.2 but expected trough is 15.5). As peak expected trough is 17.9 this may lead to levels greater than 20.
[2024-01-10 15:11] VITALS: BP 143/76; PULSE 88; RESP 18; TEMP 36.6; O2SAT 95
[2024-01-10 16:09] LABS: Glucose, Whole Blood 170 mg/dL (60-115)
[2024-01-10 19:51] VITALS: BP 116/59; PULSE 116; RESP 18; TEMP 36.9; O2SAT 96
[2024-01-10 20:42] LABS: Glucose, Whole Blood 229 mg/dL (60-115)
[2024-01-10] MEDS: Atorvastatin Calcium 20 MG TABLET PO (21:37)
[2024-01-10] MEDS: Insulin Glargine,Hum.rec.anlog 100 UNIT/ML 10 ML VIAL 80 UNIT SUBCUT (21:38)
[2024-01-11] VITALS: BP 127/59; PULSE 107; RESP 18; TEMP 37.1; O2SAT 94
[2024-01-11] MEDS: Morphine Sulfate 2 MG/ML CARTRIDGE IVPUSH ×3 (00:13→20:55)
[2024-01-11 00:40] VITALS: RESP 16
[2024-01-11] MEDS: cefEPime HCl 2 GM in 0.9 % Sodium Chloride 50 ML IV ×3 (03:25→18:07)
[2024-01-11] MEDS: vancomycin HCL 1,000 MG in 0.9 % Sodium Chloride 250 ML 270 MG IV (04:08)
[2024-01-11 06:52] LABS: Creatinine Clr Calc Pharmacy 93.8; Estimated Glomerular Filt Rate > 60
[2024-01-11 07:29] LABS: Glucose, Whole Blood 153 mg/dL (60-115)
[2024-01-11 07:52] VITALS: BP 120/69
[2024-01-11] MEDS: Clopidogrel Bisulfate 75 MG TABLET PO (07:52)
[2024-01-11] MEDS: Empagliflozin 10 MG TABLET PO (07:52)
[2024-01-11] MEDS: Insulin Lispro 100 UNIT/ML 3 ML VIAL SUBCUT ×4 (07:52→20:49)
[2024-01-11] MEDS: Enoxaparin Sodium 40 MG/0.4 ML SYRINGE SUBCUT (07:52)
[2024-01-11] MEDS: lisinopriL 2.5 MG TABLET PO (07:52)
[2024-01-11] MEDS: 0.9 % Sodium Chloride Flush 3 ML SYRINGE IVFLUSH ×2 (07:58→17:19)
[2024-01-11 08:01] VITALS: BP 120/67; PULSE 96; RESP 12; TEMP 36.6; O2SAT 94
[2024-01-11 11:45] LABS: Glucose, Whole Blood 177 mg/dL (60-115)
--- NOTE | 2024-01-11 13:33 | P.PNIM_ITS ---
Subjective Subjective Date of Service: 01/11/24 Interval History: foot osteo Review of Systems pain somewhat improving no fevers or chills Physical Exam 2 Vital Signs: Vital Signs: Last Vital Signs Temp 97.8 F 01/11/24 08:01 Pulse 96 01/11/24 08:01 Resp 12 01/11/24 08:01 BP 120/67 01/11/24 08:01 Pulse Ox 94 01/11/24 08:01 O2 Del Method Room Air 01/11/24 08:01 BMI result Body Mass Index 40.0 Appearance: Alert.? Oriented X3.? cvs: rrr, [id number] . res: clear to auscultation ,no rhonchii or wheezing abd: no rebound or guarding ,nt, bs present. ext : left foot erythema/swelling seems similar neuro: axo3 , nonfocal. Objective Data Active Medications Acetaminophen (Acetaminophen 325 Mg Tablet) 975 mg PO Q6H PRN PRN Reason: Pain, Mild (Pain Scale 1-3), fever or headache Last Admin: 01/08/24 06:26 Dose: 975 mg Documented By: THOR Atorvastatin Calcium (Atorvastatin Calcium 20 Mg Tablet) 20 mg PO DAILY@1999 [facility] Last Admin: 01/10/24 21:37 Dose: 20 mg Documented By: KILO Clopidogrel Bisulfate (Clopidogrel Bisulfate 75 Mg Tablet) 75 mg PO DAILY [facility] Last Admin: 01/11/24 07:52 Dose: 75 mg Documented By: GAGAN Empagliflozin (Empagliflozin 10 Mg Tablet) 10 mg PO DAILY [facility] Last Admin: 01/11/24 07:52 Dose: 10 mg Documented By: GAGAN Enoxaparin Sodium (Enoxaparin Sodium 40 Mg/0.4 Ml Syringe) 40 mg SUBCUT Q24H [facility] Last Admin: 01/11/24 07:52 Dose: 40 mg Documented By: GAGAN Glucose (Glucose Gel 15 Gm Gel..Gram.) 15 gm PO Q15M PRN; Protocol PRN Reason: per Hypoglycemia Standing Ord. Dextrose (D10) 250 mls @ 750 mls/hr IV Q15M PRN; Protocol PRN Reason: per Hypoglycemia Standing Ord. Cefepime HCl 2 gm/ Sodium (Chloride) 50 mls @ 100 mls/hr IV Q8H [facility] Last Infusion: 01/11/24 11:42 Dose: Infused Documented By: GAGAN Vancomycin HCl 1,000 mg/ (Sodium Chloride) 270 mls @ 270 mls/hr IV Q12H [facility] Last Infusion: 01/11/24 05:26 Dose: Infused Documented By: ADALGISA Insulin Glargine (Insulin Glargine,Hum.Rec.Anlog 100 Unit/Ml 10 Ml Vial) 80 unit SUBCUT BEDTIME [facility] Last Admin: 01/10/24 21:38 Dose: 80 unit Documented By: KILO Insulin Human Lispro (Insulin Lispro 100 Unit/Ml 3 Ml Vial) 0 unit SUBCUT QIDACHS [facility]; Protocol Last Admin: 01/11/24 11:53 Dose: 2 unit Documented By: GAGAN Lisinopril (Lisinopril 2.5 Mg Tablet) 2.5 mg PO DAILY [facility]; Protocol Last Admin: 01/11/24 07:52 Dose: 2.5 mg Documented By: GAGAN Morphine Sulfate (Morphine Sulfate 2 Mg/Ml Cartridge) 2 mg IVPUSH Q4H PRN; Protocol PRN Reason: Pain, Moderate(Pain Scale 4-6) Last Admin: 01/11/24 07:58 Dose: 2 mg Documented By: GAGAN Non-Formulary Medication (Semaglutide [Ozempic]) 2 mg SUBCUT TU [facility] Pharmacy Consult (Consult Rx Vancomycin Dosing) 1 each MISCELLANE DAILY PRN PRN Reason: Consult order Sodium Chloride (0.9 % Sodium Chloride Flush 3 Ml Syringe) 3 ml IVFLUSH QSHIFT [facility] Last Admin: 01/11/24 07:58 Dose: 3 ml Documented By: GAGAN Labs 01/09/24 05:40 01/11/24 05:41 Labs: Laboratory Results - last 24 hr 01/10/24 01/10/24 01/10/24 13:58 16:00 20:34 Estim Creat Clear Calc Estimated GFR POC Glucose 170 H 229 H Random Vancomycin 17.2 01/11/24 01/11/24 01/11/24 05:41 07:18 11:40 Estim Creat Clear Calc 93.8 Estimated GFR > 60 POC Glucose 153 H 177 H Random Vancomycin Microbiology Microbiology Results: Microbiology 01/08/24 06:20 Gram Stain - Final Foot - Drainage Routine Culture - Preliminary Staphylococcus aureus Assessment and Plan (1) Cellulitis of left foot: Status: Acute Assessment and Plan: 58 y/o man admitted with. Left foot cellulitisand acute osteomyelitis od 4th metatarsal as well as possible 3metatarsal also and infected plantar diabetic ulcer. esr 88,crp 23.8 blood cultures neg@48 hrs mri-4 cm abscess at the plantar/lateral margin of the left forefoot/midfoot with a contiguous plantar wound. Osteomyelitis at the distal margin of the fourth metatarsal base. The margins of the third metatarsal fragments are also edematous and enhancing which, in the context of the adjacent abscess, constitutes a high probability of acute osteomyelitis. continue IV antibiotic therapy with ceftriaxone and vancomycin. Id eval added for antibbiotics management,surgery following-cellulitis ,picc line order placed. Type 2 diabetes mellitus. hemoglobin A1c 7.5. BG checks before meals at bedtime. Continue Lantus, insulin sliding scale and glipizide. Diabetic diet. Peripheral vascular disease. Continue Plavix and statin. Obesity. BMI 40.0 kg/m2. Weight loss. He is on Ozempic. Hyperlipidemia. Continue statin.On lisinopril. Obstructive sleep apnea. Will order nocturnal CPAP. mprbid obesity -encouraged to lose weight and cut down calories. DVT prophylaxis: Lovenox. Code status: Full ongoing need hospitalization for left foot cellulitis and osteomyelitis treatment with IV antibiotics and evaluation by Surgical Service Quality Stroke Does the patient have a stroke diagnosis?: No VTE Prior VTE?: No VTE Risk Level:: Medical - moderate - high VTE Device Contraindication: Treatment Not Indicated VTE Drug Contraindication: N/A - Med Ordered
[2024-01-11 14:34] LABS: Vancomycin Random 19.9 mcg/mL (15-20)
--- NOTE | 2024-01-11 14:54 | HE.PHANOTE ---
RE VANCO SCR STABLE AT 1.23 BUT LEVEL IS HIGHER THAN EXPECTED AT 19.9. WILL DECREASE DOSE TO 750 Q12 WITH EXPECTED AUC 443 AND TROUGH 14.8. RECHECK LEVEL 01/11 @1700 (ALSO PUSHED BACK DOSING BY 3 HOURS TO GIVE PT SOME TIME TO CLEAR A LITTLE MORE VANCO BEFORE NEXT DOSE)
[2024-01-11 15:05] VITALS: BP 135/77; PULSE 98; RESP 18; TEMP 36.3; O2SAT 98
[2024-01-11 16:11] LABS: Glucose, Whole Blood 221 mg/dL (60-115)
[2024-01-11] MEDS: vancomycin HCL 750 MG in 0.9 % Sodium Chloride 250 ML 265 MG IV (18:34)
[2024-01-11 20:13] LABS: Glucose, Whole Blood 193 mg/dL (60-115)
[2024-01-11] MEDS: Atorvastatin Calcium 20 MG TABLET PO (20:45)
[2024-01-11] MEDS: Insulin Glargine,Hum.rec.anlog 100 UNIT/ML 10 ML VIAL 80 UNIT SUBCUT (20:49)
[2024-01-11 23:53] VITALS: BP 134/63; PULSE 84; RESP 16; TEMP 36.6; O2SAT 95
[2024-01-12] MEDS: 0.9 % Sodium Chloride Flush 3 ML SYRINGE IVFLUSH ×3 (00:57→16:11)
[2024-01-12] MEDS: cefEPime HCl 2 GM in 0.9 % Sodium Chloride 50 ML IV ×3 (03:43→18:54)
[2024-01-12] MEDS: vancomycin HCL 750 MG in 0.9 % Sodium Chloride 250 ML 265 MG IV ×2 (06:03→20:05)
[2024-01-12 07:15] VITALS: BP 146/68; PULSE 87; RESP 16; TEMP 36.6; O2SAT 95
[2024-01-12] MEDS: Empagliflozin 10 MG TABLET PO (07:24)
[2024-01-12] MEDS: Enoxaparin Sodium 40 MG/0.4 ML SYRINGE SUBCUT (07:24)
[2024-01-12] MEDS: Clopidogrel Bisulfate 75 MG TABLET PO (07:24)
[2024-01-12 07:27] LABS: Glucose, Whole Blood 212 mg/dL (60-115)
[2024-01-12] MEDS: Insulin Lispro 100 UNIT/ML 3 ML VIAL SUBCUT ×4 (07:27→20:06)
[2024-01-12 07:31] LABS: Creatinine Clr Calc Pharmacy 93.8; Estimated Glomerular Filt Rate > 60
[2024-01-12] MEDS: oxyCODONE HCl Immed Release 5 MG TABLET 10 MG PO ×2 (09:22→13:34)
--- NOTE | 2024-01-12 11:09 | HO.PICC ---
PICC Line Insertion NPICC Diagnosis: Osteomyelitis left foot Indication: Long-Term antibiotics Pertinent Labs: reviewed Technique: Following informed consent including risks, benefits and alternatives and using sterile technique including cap and mask, sterile gown, glove and drape, the right arm was prepped and draped in the usual sterile fashion of full barrier technique with CHG. Following completion of [place] Protocol the skin and soft tissues were anesthetized with 1% Lidocaine plain. Using ultrasound guidance, right basilic vein access was obtained on second attempt. Over an 0.018 wire through peel-away sheath, a 4FR single lumen PASV PICC line was positioned. Catheter length is 48 CM internal length, 0 CM external length, for a total trimmed length of 48 CM. The procedure was performed in S272. Tip verification was performed by Maribel Curran with Nila 3CG. Tip located in SVC. Ultrasound was used to document vein patency and for needle entry. A formal ultrasound picture and cardiac rhythm strip was recorded. [employer] has released the line for use and it is currently dressed with a StatLock, Tegaderm, and CHG disc. Verification has been performed for blood return and line patency. Arm Circumference: 41 CM Equipment: iProcure PowerPICC SOLO Catheter Type: 4FR single lumen PASV PICC Lot #: [id number]
--- NOTE | 2024-01-12 11:16 | PM.CNGS ---
History of Present Illness Consult details Consult date: 01/12/24 Reason for consult: wound care Narrative: 58-year-old gentleman presented to the hospital for nonhealing left foot ulcer. He had actually been seen back in September of 2020 for similar reason. Of note he is a type 2 diabetic with a history of hyperlipidemia and peripheral vascular disease. Of note he most recently underwent left 5th toe amputation at [facility] secondary to osteomyelitis. He presented to our emergency department with drainage from the wound site. He now presents to us for vascular evaluation. Review of Systems Review of Systems: Yes all other systems are reviewed and are negative Constitutional: Constitutional: Reports no additional constitutional complaints ENT: Reports Normal hearing present Cardiovascular: Cardiovascular: Denies chest pain, Denies chest pain at rest, Denies chest pain with activity and Denies pedal edema Respiratory: Respiratory: Denies cough Gastrointestinal: Gastrointestinal: Denies abdominal pain Musculoskeletal: Musculoskeletal: Denies abnormal gait, Denies muscle cramps and Denies radiating pain into limb Integumentary/Breasts: Skin/Breast: Denies skin ulcer and Denies wounds Neurologic: Reports Normal hearing present and Denies abnormal gait Psychiatric: Psychiatric: Reports no additional psychiatric complaints [facility] Past Medical History Medical History (Updated 01/12/24 @ 11:19 by Wilbur Caceres MD) PAD (peripheral artery disease) Non-healing wound Sepsis 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 Fever Nocturnal hypoxemia Diabetes Restrictive lung disease RIGOBERTO (obstructive sleep apnea) Morbid obesity Surgical History Surgical History Hx of amputation Hx of right inguinal hernia repair Hx of eye surgery Social History Social History Household Members: Family Housing: Apartment Do you presently have visiting nurse or other home services: Yes ([facility]na, wound clinic) Alcohol intake: current Alcohol intake frequency: does not drink Patient Tobacco Use Status: Former Tobacco user Smoked in Last 30 Days: No Second Hand Smoke Exposure: No Use of substances other than those prescribed or required for medical reasons: No Currently Displaying Signs/Symptoms of Drug Intoxication Withdrawal: No Have you been hit, kicked, punched, or otherwise hurt by someone within the past year? If so, by whom?: No Do you feel safe in your current relationship?: No Current Relationship Is there a partner from a previous relationship who is making you feel unsafe now?: No Are you made to feel afraid or neglected: No Advance Directives: No Advance Directives Information Provided: No Advance Directives on File: Yes Do you have a plan to hurt others: No Plan Recently lost weight without trying: No Eating poorly because of decreased appetite: No Nutrition Risks: No Nutritional Risk Poor oral hygiene: No service: No Meds Allergies Allergy/AdvReac Type Severity Reaction Status Date / Time penicillin G Allergy Unknown Unknown Verified 01/07/24 15:09 Active Medications: Current Medications Acetaminophen (Acetaminophen 325 Mg Tablet) 975 mg PO Q6H PRN PRN Reason: Pain, Mild (Pain Scale 1-3), fever or headache Last Admin: 01/08/24 06:26 Dose: 975 mg Atorvastatin Calcium (Atorvastatin Calcium 20 Mg Tablet) 20 mg PO DAILY@1999 [facility] Last Admin: 01/11/24 20:45 Dose: 20 mg Clopidogrel Bisulfate (Clopidogrel Bisulfate 75 Mg Tablet) 75 mg PO DAILY [facility] Last Admin: 01/12/24 07:24 Dose: 75 mg Empagliflozin (Empagliflozin 10 Mg Tablet) 10 mg PO DAILY [facility] Last Admin: 01/12/24 07:24 Dose: 10 mg Enoxaparin Sodium (Enoxaparin Sodium 40 Mg/0.4 Ml Syringe) 40 mg SUBCUT Q24H [facility] Last Admin: 01/12/24 07:24 Dose: 40 mg Glucose (Glucose Gel 15 Gm Gel..Gram.) 15 gm PO Q15M PRN; Protocol PRN Reason: per Hypoglycemia Standing Ord. Dextrose (D10) 250 mls @ 750 mls/hr IV Q15M PRN; Protocol PRN Reason: per Hypoglycemia Standing Ord. Cefepime HCl 2 gm/ Sodium (Chloride) 50 mls @ 100 mls/hr IV Q8H [facility] Last Infusion: 01/12/24 04:13 Dose: Infused Vancomycin HCl 750 mg/ Sodium (Chloride) 265 mls @ 265 mls/hr IV Q12H [facility] Last Infusion: 01/12/24 07:18 Dose: Infused Insulin Glargine (Insulin Glargine,Hum.Rec.Anlog 100 Unit/Ml 10 Ml Vial) 80 unit SUBCUT BEDTIME [facility] Last Admin: 01/11/24 20:49 Dose: 80 unit Insulin Human Lispro (Insulin Lispro 100 Unit/Ml 3 Ml Vial) 0 unit SUBCUT QIDACHS [facility]; Protocol Last Admin: 01/12/24 07:27 Dose: 4 unit Non-Formulary Medication (Semaglutide [Ozempic]) [address] [facility] Oxycodone HCl (Oxycodone Hcl Immed Release 5 Mg Tablet) 10 mg PO Q4H PRN PRN Reason: Pain, Mild (Pain Scale 1-3) Last Admin: 01/12/24 09:22 Dose: 10 mg Pharmacy Consult (Consult Rx Vancomycin Dosing) 1 each MISCELLANE DAILY PRN PRN Reason: Consult order Sodium Chloride (0.9 % Sodium Chloride Flush 3 Ml Syringe) 3 ml IVFLUSH [facility] Last Admin: 01/12/24 07:23 Dose: 3 ml Home Medications ?Medication ?Instructions ?Recorded ?Confirmed ?Last Taken ?Type blood sugar diagnostic (FreeStyle 10/07/20 10/24/23 1 Day Ago History Test strips) ~10/06/20 clopidogrel 75 mg tablet 1 tab PO DAILY 10/07/20 01/08/24 01/07/24 History lisinopril 2.5 mg tablet 1 tab PO DAILY 10/07/20 01/08/24 01/07/24 History simvastatin 40 mg tablet 40 mg PO DAILY@199910/07/20 01/08/24 01/06/24 History semaglutide 0.25 mg or 0.5 mg (2 2 mg subcut 11/22/22 01/08/24 01/06/24 History mg/3 mL) subcutaneous pen injector (Ozempic) glipizide 10 mg tablet 10 mg PO BID 10/02/23 01/08/24 01/07/24 History metformin 1,000 mg tablet 1,000 mg PO BID 10/02/23 01/08/24 01/07/24 History empagliflozin 10 mg tablet 10 mg PO DAILY 01/08/24 01/08/24 01/07/24 History (Jardiance) insulin glargine 100 unit/mL (3 80 unit subcut BEDTIME 01/08/24 01/08/24 01/06/24 History mL) subcutaneous pen (Basaglar KwikPen U-100 Insulin) Physical Exam Vital Signs: Vital Signs: Last Vital Signs Temp 97.9 F 01/12/24 07:15 Pulse 87 01/12/24 07:15 Resp 16 01/12/24 07:15 BP 146/68 H 01/12/24 07:15 Pulse Ox 95 01/12/24 07:15 O2 Del Method Room Air 01/12/24 07:15 O2 Flow Rate 3 01/11/24 23:53 BMI result Body Mass Index 40.0 Const: General: cooperative, healthy appearing and comfortable Orientation/consciousness: oriented to person, oriented to place and oriented to time HEENT: Head: Yes normal to inspection Neck: Neck: Yes normal visual inspection Carotids: no bruits Chest: Chest palpation & inspection: normal inspection of the chest Resp: Effort & Inspection: normal respiratory effort and able to speak in complete sentences Auscultation: clear to auscultation bilaterally, no crackles, no rales, no rhonchi and no wheezes Cardio: Rate: regular rate Rhythm: regular rhythm Heart sounds: S1 normal heart sound present and S2 normal heart sound present Bruits: no carotid bruits Peripheral pulses: Peripheral pulses 2+ throughout GI: Inspection: Yes normal to inspection Skin: Other: Left 5th toe amp site with drainage some mild erythema of the foot Wounds: amputation site Hair: normal Neuro: General: oriented to person, oriented to place and oriented to time Cranial nerves: Yes CN's II-XII intact bilaterally and Yes Normal hearing present Cognition (Neuro): normal cognition Motor exam (neuro): 5/5 motor strength present throughout Extrem: Other: venous exam: No significant superficial varicosities or spider telangiectasias, minimal edema General: No clubbing, No cyanosis and No edema Psych: Appearance: grossly normal Mental Status: mental status grossly normal Speech and movement: Normal speech and movement present Results Labs 01/09/24 05:40 01/12/24 05:25 Labs: Abnormal lab results 01/11/24 01/11/24 01/11/24 Range/Units 11:40 15:52 20:01 POC Glucose 177 H 221 H 193 H (60-115) mg/dL 01/12/24 Range/Units 07:19 POC Glucose 212 H (60-115) mg/dL BMP 01/12/24 05:25 Creatinine 1.23 All other labs normal. Assessment and Plan (1) PAD (peripheral artery disease): Status: Acute Plan In short patient is a diabetic with a nonhealing ulcer. He may have an element of peripheral vascular disease. He is in the process of getting a PICC line with IV antibiotics which may be helpful for him. I would like to better assess his arterial status to ensure that that is intact. We did check it in September of 2020 and has not followed up since that time. I have ordered noninvasive testing and will follow up with the patient after noninvasive testing. Thank you for allowing us to assist in his care. If there are any questions or concerns please do not hesitate to contact us. Procedures Date of Service Date of Service: 01/12/24
[2024-01-12 11:20] LABS: Glucose, Whole Blood 154 mg/dL (60-115)
[2024-01-12] MEDS: Acetaminophen 325 MG TABLET 975 MG PO (13:34)
--- NOTE | 2024-01-12 14:00 | MHC.CM.PN ---
EMR REVIEWED AND PER MD ROUNDS, PT WILL NOT BE CLEARED FOR DC HOME WITH RESUMPTION OF CARE WITH ENHABIT. (NEEDS PICC, CONSULT WITH VASCULAR SURGERY) PT WILL DC TOMORROW, [facility] UPDATED WELL ENHABIT FOR RESUMPTION OF IV RX AND FDC. CM WILL CONTINUE TO FOLLOW FOR ANY CHANGE TO DC PLAN. FINAL IMM DELIVERED TO PT
--- NOTE | 2024-01-12 14:21 | P.PNIM_ITS ---
Subjective Subjective Date of Service: 01/12/24 Interval History: foot osteo Review of Systems seems improving blood culture neg @48hrs no fevers picc line placed Physical Exam 2 Vital Signs: Vital Signs: Last Vital Signs Temp 97.9 F 01/12/24 07:15 Pulse 87 01/12/24 07:15 Resp 16 01/12/24 07:15 BP 146/68 H 01/12/24 07:15 Pulse Ox 95 01/12/24 07:15 O2 Del Method Room Air 01/12/24 07:15 O2 Flow Rate 3 01/11/24 23:53 BMI result Body Mass Index 40.0 Appearance: Alert.? Oriented X3.? cvs: rrr, [id number] . res: clear to auscultation ,no rhonchii or wheezing abd: no rebound or guarding ,nt, bs present. ext : left foot erythema soemwhat improving neuro: axo3 , nonfocal. Objective Data Active Medications Acetaminophen (Acetaminophen 325 Mg Tablet) 975 mg PO Q6H PRN PRN Reason: Pain, Mild (Pain Scale 1-3), fever or headache Last Admin: 01/12/24 13:34 Dose: 975 mg Documented By: KATIE Atorvastatin Calcium (Atorvastatin Calcium 20 Mg Tablet) 20 mg PO DAILY@1999 [facility] Last Admin: 01/11/24 20:45 Dose: 20 mg Documented By: SANTIAGO Clopidogrel Bisulfate (Clopidogrel Bisulfate 75 Mg Tablet) 75 mg PO DAILY [facility] Last Admin: 01/12/24 07:24 Dose: 75 mg Documented By: KATIE Empagliflozin (Empagliflozin 10 Mg Tablet) 10 mg PO DAILY [facility] Last Admin: 01/12/24 07:24 Dose: 10 mg Documented By: KATIE Enoxaparin Sodium (Enoxaparin Sodium 40 Mg/0.4 Ml Syringe) 40 mg SUBCUT Q24H [facility] Last Admin: 01/12/24 07:24 Dose: 40 mg Documented By: KATIE Glucose (Glucose Gel 15 Gm Gel..Gram.) 15 gm PO Q15M PRN; Protocol PRN Reason: per Hypoglycemia Standing Ord. Dextrose (D10) 250 mls @ 750 mls/hr IV Q15M PRN; Protocol PRN Reason: per Hypoglycemia Standing Ord. Cefepime HCl 2 gm/ Sodium (Chloride) 50 mls @ 100 mls/hr IV Q8H [facility] Last Infusion: 01/12/24 12:06 Dose: Infused Documented By: KATIE Vancomycin HCl 750 mg/ Sodium (Chloride) 265 mls @ 265 mls/hr IV Q12H [facility] Last Infusion: 01/12/24 07:18 Dose: Infused Documented By: KATIE Insulin Glargine (Insulin Glargine,Hum.Rec.Anlog 100 Unit/Ml 10 Ml Vial) 80 unit SUBCUT BEDTIME [facility] Last Admin: 01/11/24 20:49 Dose: 80 unit Documented By: SANTIAGO Insulin Human Lispro (Insulin Lispro 100 Unit/Ml 3 Ml Vial) 0 unit SUBCUT QIDACHS [facility]; Protocol Last Admin: 01/12/24 11:32 Dose: 2 unit Documented By: KATIE Non-Formulary Medication (Semaglutide [Ozempic]) 2 mg SUBCUT TU [facility] Oxycodone HCl (Oxycodone Hcl Immed Release 5 Mg Tablet) 10 mg PO Q4H PRN PRN Reason: Pain, Mild (Pain Scale 1-3) Last Admin: 01/12/24 13:34 Dose: 10 mg Documented By: KATIE Pharmacy Consult (Consult Rx Vancomycin Dosing) 1 each MISCELLANE DAILY PRN PRN Reason: Consult order Sodium Chloride (0.9 % Sodium Chloride Flush 3 Ml Syringe) 3 ml IVFLUSH QSHIFT [facility] Last Admin: 01/12/24 07:23 Dose: 3 ml Documented By: KATIE Labs 01/09/24 05:40 01/12/24 05:25 Labs: Laboratory Results - last 24 hr 01/11/24 01/11/24 01/11/24 14:09 15:52 20:01 Estim Creat Clear Calc Estimated GFR POC Glucose 221 H 193 H Random Vancomycin 19.9 01/12/24 01/12/24 01/12/24 05:25 07:19 11:16 Estim Creat Clear Calc 93.8 Estimated GFR > 60 POC Glucose 212 H 154 H Random Vancomycin Microbiology Microbiology Results: Microbiology 01/08/24 06:20 Gram Stain - Final Foot - Drainage Routine Culture - Final Methicillin Res Staph Aureus Assessment and Plan (1) Cellulitis of left foot: Status: Acute Assessment and Plan: 58 y/o man admitted with. Left foot cellulitisand acute osteomyelitis od 4th metatarsal as well as possible 3metatarsal also and infected plantar diabetic ulcer. esr 88,crp 23.8 blood cultures neg@48 hrs mri-4 cm abscess at the plantar/lateral margin of the left forefoot/midfoot with a contiguous plantar wound. Osteomyelitis at the distal margin of the fourth metatarsal base. The margins of the third metatarsal fragments are also edematous and enhancing which, in the context of the adjacent abscess, constitutes a high probability of acute osteomyelitis. vanco trough 19.9 continue IV antibiotic therapy with cefpime and vancomycin( intialted 01/07). d/w vascular -doppler studies added Id eval added for antibbiotics management,surgery following-cellulitis ,picc line order placed. Type 2 diabetes mellitus. hemoglobin A1c 7.5. BG checks before meals at bedtime. Continue Lantus, insulin sliding scale and glipizide. Diabetic diet. Peripheral vascular disease. Continue Plavix and statin. Obesity. BMI 40.0 kg/m2. Weight loss. He is on Ozempic. Hyperlipidemia. Continue statin.On lisinopril. Obstructive sleep apnea. Will order nocturnal CPAP. mprbid obesity -encouraged to lose weight and cut down calories. DVT prophylaxis: Lovenox. Code status: Full ongoing need hospitalization for left foot cellulitis and osteomyelitis treatment with IV antibiotics, picc line ,antibiotics arrnagement ,vascular dopplers and vascular follow up Quality Stroke Does the patient have a stroke diagnosis?: No VTE Prior VTE?: No VTE Risk Level:: Medical - moderate - high VTE Device Contraindication: Treatment Not Indicated VTE Drug Contraindication: N/A - Med Ordered
--- NOTE | 2024-01-12 14:44 | P.CNID_ITS ---
History of Present Illness Data of Consult Service Date: 01/12/24 Requesting physician: Radha Navraro Primary Care Provider: Shreyas Da Silva MD HPI Reason for consult: left foot OM He presents with left foot discomfort over last two weeks. 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 He has had orthopedics he said work on shaving bone over last year. Review of Systems 2 Review of Systems: Yes all other systems are reviewed and are negative PMFSH Past Medical History Medical History PAD (peripheral artery disease) Non-healing wound Sepsis 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 Fever Nocturnal hypoxemia Diabetes Restrictive lung disease RIGOBERTO (obstructive sleep apnea) Morbid obesity Family History Family history: reviewed and not pertinent Surgical History Surgical History Hx of amputation Hx of right inguinal hernia repair Hx of eye surgery Social History Social History Household Members: Family Housing: Apartment Do you presently have visiting nurse or other home services: Yes ([facility]na, wound clinic) Alcohol intake: current Alcohol intake frequency: does not drink Patient Tobacco Use Status: Former Tobacco user Smoked in Last 30 Days: No Second Hand Smoke Exposure: No Use of substances other than those prescribed or required for medical reasons: No Currently Displaying Signs/Symptoms of Drug Intoxication Withdrawal: No Have you been hit, kicked, punched, or otherwise hurt by someone within the past year? If so, by whom?: No Do you feel safe in your current relationship?: No Current Relationship Is there a partner from a previous relationship who is making you feel unsafe now?: No Are you made to feel afraid or neglected: No Advance Directives: No Advance Directives Information Provided: No Advance Directives on File: Yes Do you have a plan to hurt others: No Plan Recently lost weight without trying: No Eating poorly because of decreased appetite: No Nutrition Risks: No Nutritional Risk Poor oral hygiene: No service: No Meds Allergies Allergy/AdvReac Type Severity Reaction Status Date / Time penicillin G Allergy Unknown Unknown Verified 01/07/24 15:09 Active Medications: Current Medications Acetaminophen (Acetaminophen 325 Mg Tablet) 975 mg PO Q6H PRN PRN Reason: Pain, Mild (Pain Scale 1-3), fever or headache Last Admin: 01/12/24 13:34 Dose: 975 mg Atorvastatin Calcium (Atorvastatin Calcium 20 Mg Tablet) 20 mg PO DAILY@1999 [facility] Last Admin: 01/11/24 20:45 Dose: 20 mg Clopidogrel Bisulfate (Clopidogrel Bisulfate 75 Mg Tablet) 75 mg PO DAILY [facility] Last Admin: 01/12/24 07:24 Dose: 75 mg Empagliflozin (Empagliflozin 10 Mg Tablet) 10 mg PO DAILY [facility] Last Admin: 01/12/24 07:24 Dose: 10 mg Enoxaparin Sodium (Enoxaparin Sodium 40 Mg/0.4 Ml Syringe) 40 mg SUBCUT Q24H [facility] Last Admin: 01/12/24 07:24 Dose: 40 mg Glucose (Glucose Gel 15 Gm Gel..Gram.) 15 gm PO Q15M PRN; Protocol PRN Reason: per Hypoglycemia Standing Ord. Dextrose (D10) 250 mls @ 750 mls/hr IV Q15M PRN; Protocol PRN Reason: per Hypoglycemia Standing Ord. Cefepime HCl 2 gm/ Sodium (Chloride) 50 mls @ 100 mls/hr IV Q8H [facility] Last Infusion: 01/12/24 12:06 Dose: Infused Vancomycin HCl 750 mg/ Sodium (Chloride) 265 mls @ 265 mls/hr IV Q12H [facility] Last Infusion: 01/12/24 07:18 Dose: Infused Insulin Glargine (Insulin Glargine,Hum.Rec.Anlog 100 Unit/Ml 10 Ml Vial) 80 unit SUBCUT BEDTIME [facility] Last Admin: 01/11/24 20:49 Dose: 80 unit Insulin Human Lispro (Insulin Lispro 100 Unit/Ml 3 Ml Vial) 0 unit SUBCUT QIDACHS [facility]; Protocol Last Admin: 01/12/24 11:32 Dose: 2 unit Non-Formulary Medication (Semaglutide [Ozempic]) 2 mg SUBCUT TU [facility] Oxycodone HCl (Oxycodone Hcl Immed Release 5 Mg Tablet) 10 mg PO Q4H PRN PRN Reason: Pain, Mild (Pain Scale 1-3) Last Admin: 01/12/24 13:34 Dose: 10 mg Pharmacy Consult (Consult Rx Vancomycin Dosing) 1 each MISCELLANE DAILY PRN PRN Reason: Consult order Sodium Chloride (0.9 % Sodium Chloride Flush 3 Ml Syringe) 3 ml IVFLUSH QSHIFT [facility] Last Admin: 01/12/24 07:23 Dose: 3 ml Home Medications ?Medication ?Instructions ?Recorded ?Confirmed ?Last Taken ?Type blood sugar diagnostic (FreeStyle 10/07/20 10/24/23 1 Day Ago History Test strips) ~10/06/20 clopidogrel 75 mg tablet 1 tab PO DAILY 10/07/20 01/08/24 01/07/24 History lisinopril 2.5 mg tablet 1 tab PO DAILY 10/07/20 01/08/24 01/07/24 History simvastatin 40 mg tablet 40 mg PO DAILY@199910/07/20 01/08/24 01/06/24 History semaglutide 0.25 mg or 0.5 mg (2 2 mg subcut TU 11/22/22 01/08/24 01/06/24 History mg/3 mL) subcutaneous pen injector (Ozempic) glipizide 10 mg tablet 10 mg PO BID 10/02/23 01/08/24 01/07/24 History metformin 1,000 mg tablet 1,000 mg PO BID 10/02/23 01/08/24 01/07/24 History empagliflozin 10 mg tablet 10 mg PO DAILY 01/08/24 01/08/24 01/07/24 History (Jardiance) insulin glargine 100 unit/mL (3 80 unit subcut BEDTIME 01/08/24 01/08/24 01/06/24 History mL) subcutaneous pen (Basaglar KwikPen U-100 Insulin) Physical Exam 2 Vital Signs: Vital Signs: Last Vital Signs Temp 97.9 F 01/12/24 07:15 Pulse 87 01/12/24 07:15 Resp 16 01/12/24 07:15 BP 146/68 H 01/12/24 07:15 Pulse Ox 95 01/12/24 07:15 O2 Del Method Room Air 01/12/24 07:15 O2 Flow Rate 3 01/11/24 23:53 BMI result Body Mass Index 40.0 Const: General: cooperative HEENT: Head: Yes normal to inspection Face and sinus: Yes normal facial exam Mouth: Normal oral and palatal mucosa present Teeth and gingiva: d entition normal Eyes: General: appearance normal, both eyes and all related structures P upils: Equal, round and reactive pupils present Resp: Effort & Inspection: normal respiratory effort Cardio: Rate: regular rate Rhythm: regular rhythm GI: Palpation (GI): Soft to palpation and nontender : General: Yes no CVA tenderness Back/Spine/Pelvis: Back: no CVA tenderness Skin: General skin exam: no rashes or lesions noted Neuro: General: moves all extremities Cranial nerves: Yes Equal, round and reactive pupils present Extrem: Other: left foot redness/swelling laterally neuropathy General: Yes normal to inspection Psych: Appearance: grossly normal Results Labs 01/09/24 05:40 01/12/24 05:25 Labs: BMP 01/12/24 05:25 Creatinine 1.23 Microbiology Microbiology Results: Microbiology 01/08/24 06:20 Foot - Drainage Gram Stain - Final 01/08/24 06:20 Foot - Drainage Routine Culture - Final Methicillin Res Staph Aureus 01/07/24 19:35 Blood - Venous Blood Culture - Preliminary No growth after 48 hours. 01/07/24 17:32 Blood - Venous Blood Culture - Preliminary No growth after 48 hours. Assessment and Plan (1) PAD (peripheral artery disease): Status: Acute (2) Cellulitis of left foot: Status: Acute (3) Diabetic foot infection: Status: Acute Plan He has likely despite amputation left fifth toe some OM left in metatarsals. Would give six weeks IV Vancomycin , weekly creatinine and Vancomycin levels and switch to Daptomycin if not working. F/u Dr Caceres.
[2024-01-12 15:28] VITALS: BP 116/72; PULSE 89; RESP 20; TEMP 36.4; O2SAT 95
[2024-01-12 16:19] LABS: Glucose, Whole Blood 178 mg/dL (60-115)
--- NOTE | 2024-01-12 18:18 | HE.PHANOTE ---
RE: VANCO DOSING Random came back as 18. Continue with dose of 750 mg q12h, next random is scheduled for 01/12/24 @1700.
[2024-01-12 19:17] VITALS: BP 112/71; PULSE 90; RESP 20; TEMP 36.8; O2SAT 93
[2024-01-12 20:05] LABS: Glucose, Whole Blood 240 mg/dL (60-115)
[2024-01-12] MEDS: Insulin Glargine,Hum.rec.anlog 100 UNIT/ML 10 ML VIAL 80 UNIT SUBCUT (20:05)
[2024-01-12] MEDS: Atorvastatin Calcium 20 MG TABLET PO (20:06)
[2024-01-12] MEDS: 0.9 % Sodium Chloride Flush 10 ML SYRINGE 5 ML IVFLUSH (20:23)
[2024-01-13] MEDS: 0.9 % Sodium Chloride Flush 3 ML SYRINGE IVFLUSH ×2 (00:02→08:03)
[2024-01-13] MEDS: cefEPime HCl 2 GM in 0.9 % Sodium Chloride 50 ML IV (04:34)
[2024-01-13 04:35] VITALS: BP 126/64; PULSE 85; RESP 16; TEMP 36.1; O2SAT 94
[2024-01-13 06:59] LABS: Anion Gap 13 (12-20); Blood Urea Nitrogen 24 mg/dL (9-16); Carbon Dioxide 26 mmol/L (22-29); Chloride 102 mmol/L (96-108); Creatinine Clr Calc Pharmacy 99.4; Estimated Glomerular Filt Rate > 60; Glucose Random 190 mg/dL (60-115); Potassium 4.5 mmol/L (3.3-5.1); Sodium 136 mmol/L (135-145)
[2024-01-13 07:30] VITALS: BP 144/88; PULSE 74; RESP 16; TEMP 36; O2SAT 98
[2024-01-13 07:38] LABS: Glucose, Whole Blood 160 mg/dL (60-115)
[2024-01-13] MEDS: vancomycin HCL 750 MG in 0.9 % Sodium Chloride 250 ML 265 MG IV (08:03)
[2024-01-13] MEDS: Clopidogrel Bisulfate 75 MG TABLET PO (08:03)
[2024-01-13] MEDS: Empagliflozin 10 MG TABLET PO (08:03)
[2024-01-13] MEDS: 0.9 % Sodium Chloride Flush 10 ML SYRINGE 5 ML IVFLUSH (08:04)
[2024-01-13] MEDS: Insulin Lispro 100 UNIT/ML 3 ML VIAL SUBCUT (08:04)
[2024-01-13] MEDS: Enoxaparin Sodium 40 MG/0.4 ML SYRINGE SUBCUT (08:05)
[2024-01-13] MEDS: oxyCODONE HCl Immed Release 5 MG TABLET 10 MG PO (08:12)
--- NOTE | 2024-01-13 10:10 | PM.DS ---
DS: Providers Provider Date of Service: 01/13/24 Date of admission: 01/08/24 04:59 Date of discharge: 01/13/24 Primary care physician: Shreyas Da Silva MD Consults: 01/08/24 06:04 Consult to Wound Care Routine Reason for consultation: Left plantar ulcer 01/08/24 06:22 Consult to General Surgery Routine Consulting Provider: [facility] [place] General Surgeons Reason for consultation: Left foot infected diabetic ulcer Has provider been notified: No 01/08/24 08:23 Consult to Vascular Surgery Routine Consulting Provider: [facility] [place] Vascular Services Reason for consultation: foot infection/dm foot Has provider been notified: No 01/10/24 09:31 Consult to Infectious Diseases Routine Consulting Provider: [facility] [place] Infectious Disease [facility] Reason for consultation: Foot osteo Has provider been notified: No DS: Diagnosis Discharge Diagnosis (1) PAD (peripheral artery disease): Status: Acute (2) Cellulitis of left foot: Status: Acute (3) Diabetic foot infection: Status: Acute DS: Summary Hospital Course Hospital Course: from initial hpi: 58 years old man with past medical history significant for type 2 diabetes mellitus on insulin, hyperlipidemia, peripheral vascular disease and obesity presents to the emergency department complaining of left foot swelling and worsening redness that he noted yesterday. He denied any fever or chills. Patient recently underwent left 5th toe amputation at [facility] due to osteomyelitis and received a course of vancomycin IV which he was completed last week. He was noted to have drainage from the surgical site by [employer]. He reported no acute cardiopulmonary, gastrointestinal or genitourinary symptoms. In the ED, he was found to have normal vital signs. Blood workup was remarkable for leukocytosis of 13.0 and elevated CRP, 23.85. There is no lactic acidosis. There are no electrolyte imbalances and renal function is normal. LFTs are unremarkable. Left foot x-ray showed no radiographic signs of osteomyelitis. ED tx: Acetaminophen 900 75 mg p.o., NS 1 L bolus, vancomycin 2 g IV, cefepime 2 g IV hospital course: Patient was admitted for left foot cellulitis and acute osteomyelitis of the 4th metatarsal as well as possible 3rd metatarsal and infected plantar diabetic foot ulcer. Arterial duplex did show left posterior tibial occlusive disease, patient will continue on Plavix and statin and follow up outpatient for vascular follow-up. Was seen by infectious disease recommended 6 weeks of IV vancomycin which will be completed 02/18/2024. Patient will continue treatment at home. For diabetes was continued on basal bolus insulin, for morbid obesity weight loss recommended he is on Ozempic at home. For hyperlipidemia he will continue on statin. Time Attestation Discharge Coordination Time (in mins): 32 Quality: Safe Use of Opioids Does Pt have an Active Cancer Diagnosis on the Problem List?: No Quality: Stroke Does the patient have a stroke diagnosis?: No Physical Exam Vital Signs: Vital Signs: Last Vital Signs Temp 96.8 F 01/13/24 07:30 Pulse 74 01/13/24 07:30 Resp 16 01/13/24 07:30 BP 144/88 H 01/13/24 07:30 Pulse Ox 98 01/13/24 07:30 O2 Del Method Room Air 01/13/24 07:30 O2 Flow Rate 3 01/11/24 23:53 BMI result Body Mass Index 40.0 General: AO X 3, no acute distress Resp: CTA bilateral, no accessory muscles used CVS: S1,S2,RRR GI: soft, non tender, non distended Neuro: motor grossly intact, alert Psych: appropriate affect, appropriate insight DS: Data Data Completed and Pending Completed studies during hospitalization [Text1]: Procedures Fluoroscopy of Aorta and Bilateral Lower Extremity Arteries (10/07/20) Labs on day of discharge: Laboratory Results - last 24 hr 01/12/24 01/12/24 01/12/24 11:16 16:09 17:25 Sodium Potassium Chloride Carbon Dioxide Anion Gap BUN Creatinine Estim Creat Clear Calc Estimated GFR POC Glucose 154 H 178 H Random Glucose Calcium Random Vancomycin 18.0 01/12/24 01/13/24 01/13/24 19:56 06:13 07:32 Sodium 136 Potassium 4.5 Chloride 102 Carbon Dioxide 26 Anion Gap 13 BUN 24 H Creatinine 1.16 Estim Creat Clear Calc 99.4 Estimated GFR > 60 POC Glucose 240 H 160 H Random Glucose 190 H Calcium 10.0 D Random Vancomycin Discharge Plan Discharge Anticipated Discharge Date/Time: 01/13/24 10:05 Patient Disposition: Home Health Service Discharge Diagnosis: dfu/om, pvd Referrals: Shreyas Da Silva MD [Primary Care Provider] - 1 Week Lor Delatorre MD [Physician] - 1 Week Wilbur Marie MD [Physician] - 1 Week Discharge Medications: New vancomycin 750 mg recon soln 750 mg IV Q12H Qty: 10 0RF Continued (DME) blood sugar diagnostic Strip See Rx Instructions .Route Qty: 50 6RF Rx Instructions: As directed clopidogrel 75 mg tablet 1 tab PO DAILY (DME) FreeStyle Test Strip MISCELLANEOUS simvastatin 40 mg tablet 40 mg PO DAILY@2000 lisinopril 2.5 mg tablet 1 tab PO DAILY Jardiance 10 mg tablet 10 mg PO DAILY insulin glargine [Basaglar KwikPen U-100 Insulin] 100 unit/mL (3 mL) insulin pen 80 unit subcut BEDTIME Ozempic 0.25 mg or 0.5 mg (2 mg/3 mL) pen injector 2 mg subcut TU metformin 1,000 mg tablet 1,000 mg PO BID glipizide 10 mg tablet 10 mg PO BID Discharge Orders: Discharge Order (Routine); Ordered 01/13/24 Ordered By: Xavi Monae Diet: Diabetic diet Activity on Discharge: As tolerated Stand Alone Forms: Patient Portal Discharge page Print Language: Sami Care Plan Goals: manage dfu/om, pvd Health Concerns: dfu/om, pvd Plan of Treatment: 6 weeks of iv vancomycin - end date feb 18, 2024, follow up with dr marie for PVD - continue plavix and statin Assessment: see above
--- NOTE | 2024-01-13 10:16 | P.F2F_ITS ---
Service Date Service Date: 01/13/24 Encounter Date of encounter: 01/13/24 Reasons for Services Signs and symptoms assessed: Difficulty ambulating due to left lower extremity diabetic foot ulcer Reason for long term: medication management, medication treatment and teach disease management Homebound: Leaving the home is medically contraindicated at this time without the asist of a device and/or another person due th the listed conditions above and below. Reason homebound: unsteady gait / fall risk Certification: Based on the above findings, I certify that this patient is confined to the home and needs intermittent long term care, physical therapy and/or speech therapy, or continues to need occupational therapy. The patient is under my care, and I have initiated the establishment of the plan of care. The patient will be followed by a physician who will periodically review the plan of care. Time Spent With Patient Time: Total time managing care of this patient today ____ minutes.
--- NOTE | 2024-01-13 10:31 | MHC.CM.PN ---
Per MD rounds patient medically cleared for dc home w/ [facility] and [place] for IV vanco. Daughter will provide transport home. RN aware. Patient will administer vanco dose tonight and Mikala will see patient tomorrow. Patient recently completed a course of IV abx at home and is proficient w/ administration.
== END 2024-01-13 10:55 | disposition home health service (06) | DRG 565 ==
LOC: HO.ED 01-08 02:02 → HO.EDOVER 01-08 05:02 → HO.S3 01-08 05:28
PROVIDERS: Internal Medicine; Registered Nurse Emergency; Admitting Provider Internal Medicine; Emergency Provider Internal Medicine; PCP Internal Medicine; Visit Provider Internal Medicine
DX: T87.44 Infection of amputation stump, left lower extremity (principal); L02.612 Cutaneous abscess of left foot; L03.116 Cellulitis of left lower limb; Z68.41 Body mass index [BMI] 40.0-44.9, adult; M86.172 Other acute osteomyelitis, left ankle and foot; L97.426 Non-pressure chronic ulcer of left heel and midfoot with bone involvement without evidence of necrosis; I70.244 Atherosclerosis of native arteries of left leg with ulceration of heel and midfoot; E78.5 Hyperlipidemia, unspecified; G47.33 Obstructive sleep apnea (adult) (pediatric); E11.51 Type 2 diabetes mellitus with diabetic peripheral angiopathy without gangrene; E66.01 Morbid (severe) obesity due to excess calories; Z71.3 Dietary counseling and surveillance; Z87.891 Personal history of nicotine dependence; Z79.4 Long term (current) use of insulin; Z79.84 Long term (current) use of oral hypoglycemic drugs; Z79.85 Long-term (current) use of injectable non-insulin antidiabetic drugs; Z79.899 Other long term (current) drug therapy
CPT/HCPCS: 36415; 36573; 73630; 73720; 80048; 80053; 80202; 82565; 82947; 83036; 83605; 85025; 85652; 86140; 87040; 87070; 87077; 87186; 87205; 93923; 93925; 99285; A9585; C1751; J0692; J1650; J2270; J3370

== ENCOUNTER → 2024-01-08 04:59 | Outpatient (BNV) | payer MEDICARE, SELFPAY | PROVIDERS: Admitting Provider Internal Medicine; Emergency Provider Internal Medicine; PCP Internal Medicine; Visit Provider Surgery | DX: L03.116 Cellulitis of left lower limb (principal) | CPT/HCPCS: 99222; 99231; 99232 ==

== ENCOUNTER → 2024-01-08 04:59 | Outpatient (BNV) | payer MEDICARE, SELFPAY | PROVIDERS: Admitting Provider Internal Medicine; Emergency Provider Internal Medicine; PCP Internal Medicine; Visit Provider Internal Medicine | DX: I73.9 Peripheral vascular disease, unspecified (principal); L03.116 Cellulitis of left lower limb; E11.628 Type 2 diabetes mellitus with other skin complications; L08.9 Local infection of the skin and subcutaneous tissue, unspecified | CPT/HCPCS: 99222 ==

== ENCOUNTER → 2024-01-08 04:59 | Outpatient (BNV) | payer MEDICARE, SELFPAY | PROVIDERS: Admitting Provider Internal Medicine; Emergency Provider Internal Medicine; PCP Internal Medicine; Visit Provider Internal Medicine | DX: L03.116 Cellulitis of left lower limb (principal); E11.621 Type 2 diabetes mellitus with foot ulcer | CPT/HCPCS: 99223; 99231; 99232; 99239; 99499; G0180 ==

== ENCOUNTER → 2024-01-08 04:59 | Outpatient (BNV) | payer MEDICARE, SELFPAY | PROVIDERS: Admitting Provider Internal Medicine; Emergency Provider Internal Medicine; PCP Internal Medicine; Visit Provider Surgery Vascular Surgery | DX: E11.621 Type 2 diabetes mellitus with foot ulcer (principal); L03.116 Cellulitis of left lower limb; I73.9 Peripheral vascular disease, unspecified | CPT/HCPCS: 99222 ==

== ENCOUNTER 2024-01-23 13:17 | Outpatient (REF) | payer MEDICARE, SELFPAY | END 2024-01-23 13:18 | disposition home or self-care (01) | LOC: HO.RADIR 13:17 | PROVIDERS: Visit Provider Radiology Vascular & Interventional Radiology | DX: Z13.89 Encounter for screening for other disorder (principal) ==

== ENCOUNTER 2024-01-26 07:42 | Outpatient (REF) | payer MEDICARE, SELFPAY ==
--- NOTE | ~2024-01-26 | IR_ITS ---
CLINICAL HISTORY: Current PICC is partially dislodged. PROCEDURES: 1. Real-time ultrasound-guided access into the right basilic vein after documentation of selected vessel patency, and permanent imaging storing in the patient record. 2. Placement of a 5 fr 48 cm, dual lumen power PICC CLINICIANS: Tony Chirinos PA-C MEDICATIONS: -Lidocaine 1% 10 mL SQ. -Antibiotics: None. Complications: None. Estimated blood loss: <5 ml Specimens: None. Contrast: None. Fluoroscopy time: 0.7 min Procedure note: The procedure, risks, benefits, and alternatives were carefully explained to the patient and written informed consent was obtained. The patient was placed supine on the fluoroscopy table. A timeout was performed. The right arm was prepped and draped in usual sterile fashion. Using ultrasound and fluoroscopic guidance, venous access was achieved into the basilic vein with a micropuncture set. A peel-away sheath was advanced over the wire. The 0.018 inch wire was advanced into the right atrium. A 5 fr, 48 cm, single-lumen power PICC was advanced over the wire, with the tip positioned at the cavoatrial junction. The wire was removed. The catheter was tested and secured with a a 3-0 nylon suture. The previous, nonfunctioning PICC was then removed entirely. A permanent ultrasound image and chest fluoroscopic image was saved to PACS. The patient was stable after the procedure and was transferred to the floor. FINDINGS: 1. Patent right basilic vein 2. Placement of a 5 fr 48 cm, single-lumen PASV PICC 3. Removal of nonfunctioning PICC IR/IR cvc replace non tunneled IMPRESSION: Placement of a 5 fr 48 cm, single-lumen PASV power PICC and removal of the previous nonfunctioning PACS. PLAN: -The catheter may be used immediately. This procedure was performed by Tony Chirinos PA-C, and directly supervised by Dr. Stewart Electronically signed by: Juanpablo Stewart MD 01/26/2024 05:09 PM EDT
[2024-01-26 10:53] LABS: Vancomycin Trough 11.6 mcg/mL (10.0-20.0)
== END 2024-01-26 07:43 | disposition home or self-care (01) ==
LOC: HO.RADIR 07:42
PROVIDERS: PCP Internal Medicine; Visit Provider Internal Medicine
DX: L03.116 Cellulitis of left lower limb (principal)
CPT/HCPCS: 36415; 36580; 76937; 80202; C1751; J2003

== ENCOUNTER → 2024-01-26 08:00 | Outpatient (BNV) | payer MEDICARE, SELFPAY | PROVIDERS: PCP Internal Medicine; Visit Provider Radiology Diagnostic Radiology | DX: T82.524A Displacement of infusion catheter, initial encounter (principal) | CPT/HCPCS: 36580; 76937; 77001 ==

== ENCOUNTER 2024-01-28 11:27 | Outpatient (AMB) | payer MEDICARE, SELFPAY ==
--- NOTE | 2024-01-28 11:24 | MHC.OFFVIS ---
Vital Signs 01/28/24 11:37 Height 6 ft Weight 314 lb BMI 42.6 Pulse 100 Pulse Source Pulse Oximeter Temp 98.7 F Temp Source Oral Pulse Oximetry (%) 98 Oxygen Delivery Method Room Air Intake Visit Reasons: [facility] re[facility] osteomyelitis Allergies penicillin G Allergy (Unknown, Verified 01/28/24 11:24) Unknown HPI HPI [facility] reff osteomyelitis: Details: He has complaints about PICC line discomfort. He has had line evaluated . He feels better at this time but wondered who to contact if has line discomfort. [facility] Medical History PAD (peripheral artery disease) Non-healing wound Sepsis 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 Fever Nocturnal hypoxemia Diabetes Restrictive lung disease RIGOBERTO (obstructive sleep apnea) Morbid obesity Surgical History Hx of amputation Hx of right inguinal hernia repair Hx of eye surgery Social History Household Members: Family Housing: Apartment Do you presently have visiting nurse or other home services: Yes ([facility]na, wound clinic) Alcohol intake: current Alcohol intake frequency: does not drink Patient Tobacco Use Status: Former Tobacco user Second Hand Smoke Exposure: No service: No Review of Systems Const All systems reviewed & are unremarkable except as noted in HPI and below Physical Exam Vital Signs: Last Vital Signs Temp 98.7 F 01/28/24 11:37 Pulse 100 01/28/24 11:37 Pulse Ox 98 01/28/24 11:37 Oxygen Delivery Method Room Air 01/28/24 11:37 BMI result Body Mass Index 42.6 Const General: cooperative Orientation/consciousness: patient oriented x3 HEENT Head: Yes normal to inspection Mouth: Normal oral and palatal mucosa present Eyes General: appearance normal, both eyes and all related structures Pupils: Equal, round and reactive pupils present Resp Effort & Inspection: normal respiratory effort Cardio Rate: regular rate Rhythm: regular rhythm GI Palpation (GI): Soft to palpation and nontender General: Yes no CVA tenderness Back/Spine/Pelvis Back: no CVA tenderness Skin General skin exam: no rashes or lesions noted Neuro General: patient oriented x3 Cranial nerves: Yes CN's II-XII intact bilaterally and Yes Equal, round and reactive pupils present Extrem Other: still healing wound area,no cellulitis Psych Appearance: grossly normal Assessment & Plan Assessment & Plan (1) Cellulitis of left foot: Code(s): L03.116 - Cellulitis of left lower limb Category: Medical Plan: na (2) PAD (peripheral artery disease): Code(s): I73.9 - Peripheral vascular disease, unspecified Category: Medical Plan: Continue antibiotics. Call PCP if not feeling well or ER if chills or foot looks worse. See as scheduled. Coding Level of Care Code Est Pt Level 3 (32862) Diagnoses Cellulitis of left foot L03.116 PAD (peripheral artery disease) I73.9
[2024-01-28 11:37] VITALS: PULSE 100; TEMP 37.1; O2SAT 98; BMI 42.6
== END 2024-01-28 13:08 | disposition home or self-care (01) ==
PROVIDERS: PCP Internal Medicine; Visit Provider Internal Medicine
DX: L03.116 Cellulitis of left lower limb (principal); I73.9 Peripheral vascular disease, unspecified
CPT/HCPCS: 99213

== ENCOUNTER → 2024-01-28 11:27 | Outpatient (BNVA) | payer MEDICARE, SELFPAY | PROVIDERS: PCP Internal Medicine; Visit Provider Internal Medicine | DX: M86.9 Osteomyelitis, unspecified (principal); L03.116 Cellulitis of left lower limb; I73.9 Peripheral vascular disease, unspecified; Z79.2 Long term (current) use of antibiotics; Z95.828 Presence of other vascular implants and grafts | CPT/HCPCS: 99212 ==

== ENCOUNTER 2024-02-09 11:18 | Outpatient (AMB) | payer MEDICARE, SELFPAY ==
--- NOTE | 2024-02-09 11:26 | MHC.OFFVIS ---
Vital Signs 02/09/24 11:33 Height 6 ft Weight 315 lb BMI 42.7 Pulse 112 H Pulse Source Pulse Oximeter Temp 99.1 F Temp Source Oral Pulse Oximetry (%) 97 Oxygen Delivery Method Room Air Intake Visit Reasons: follow up wound/ok per Allergies penicillin G Allergy (Unknown, Verified 02/09/24 11:33) Unknown HPI HPI follow up wound/ok per : Details: He has MRSA tetracycline resistant He is done with antibiotics on February 17 [facility] Medical History PAD (peripheral artery disease) Non-healing wound Sepsis 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 Fever Nocturnal hypoxemia Diabetes Restrictive lung disease RIGOBERTO (obstructive sleep apnea) Morbid obesity Surgical History Hx of amputation Hx of right inguinal hernia repair Hx of eye surgery Social History Household Members: Family Housing: Apartment Do you presently have visiting nurse or other home services: Yes ([facility]na, wound clinic) Alcohol intake: current Alcohol intake frequency: does not drink Patient Tobacco Use Status: Former Tobacco user Second Hand Smoke Exposure: No service: No Review of Systems Const All systems reviewed & are unremarkable except as noted in HPI and below Physical Exam Vital Signs: Last Vital Signs Temp 99.1 F 02/09/24 11:33 Pulse 112 H 02/09/24 11:33 Pulse Ox 97 02/09/24 11:33 Oxygen Delivery Method Room Air 02/09/24 11:33 BMI result Body Mass Index 42.7 Const Other: General: cooperative Orientation/consciousness: patient oriented x3 HEENT Head: Yes normal to inspection Mouth: Normal oral and palatal mucosa present Eyes General: appearance normal, both eyes and all related structures Pupils: Equal, round and reactive pupils present Resp Effort & Inspection: normal respiratory effort Cardio Rate: regular rate Rhythm: regular rhythm GI Palpation (GI): Soft to palpation and nontender General: Yes no CVA tenderness Back/Spine/Pelvis Back: no CVA tenderness Skin General skin exam: no rashes or lesions noted Neuro General: patient oriented x3 Cranial nerves: Yes CN's II-XII intact bilaterally and Yes Equal, round and reactive pupils present Extrem General: Yes normal to inspection Psych Appearance: grossly normal Assessment & Plan Assessment & Plan (1) Diabetic foot infection: Comment: He has clean foot ulcer Code(s): E11.628 - Type 2 diabetes mellitus with other skin complications; L08.9 - Local infection of the skin and subcutaneous tissue, unspecified Category: Medical Plan Stop antibiotics Followup Wound Care. Orders: Orders IR cvc remove any age 1002/09/24 E11.628 - Type 2 diabetes mellitus with other skin complications, L08.9 - Local infection of the skin and subcutaneous tissue, unspecified Coding Level of Care Code Est Pt Level 3 (57380) Diagnoses Diabetic foot infection E11.628; L08.9
[2024-02-09 11:33] VITALS: PULSE 112; TEMP 37.3; O2SAT 97; BMI 42.7
== END 2024-02-09 12:04 | disposition home or self-care (01) ==
LOC: HO.HID 11:18
PROVIDERS: PCP Internal Medicine; Visit Provider Internal Medicine
DX: E11.628 Type 2 diabetes mellitus with other skin complications (principal); L08.9 Local infection of the skin and subcutaneous tissue, unspecified
CPT/HCPCS: 99213

== ENCOUNTER → 2024-02-09 11:18 | Outpatient (BNVA) | payer MEDICARE, SELFPAY | PROVIDERS: PCP Internal Medicine; Visit Provider Internal Medicine | DX: E11.628 Type 2 diabetes mellitus with other skin complications (principal); L08.9 Local infection of the skin and subcutaneous tissue, unspecified | CPT/HCPCS: 99212 ==

== ENCOUNTER 2024-03-10 11:10 | Inpatient (IN) | payer MEDICARE, SELFPAY ==
--- NOTE | ~2024-03-10 | XR_ITS ---
EXAMINATION: XR FOOT, LEFT CLINICAL INFORMATION: hx of amputations, c/f osteo COMPARISON: X-ray dated January 07, 2024 TECHNIQUE: AP, lateral, and oblique views of the left foot. FINDINGS: Periosteal bone reaction and sclerosis at the proximal third and fourth metatarsals. Edema pattern in the plantar and dorsal aspect of the lateral foot. Postsurgical changes, unchanged. Well-corticated to lytic lesion in the calcaneus, likely benign Atherosclerosis disease.. XR/XR foot LT min 3V IMPRESSION: Concerning cellulitis/ osteomyelitis at the proximal fourth and fifth metatarsals and lateral aspect of the left foot. Electronically signed by: Rafael Dias MD 03/10/2024 12:29 PM [facility]
--- NOTE | ~2024-03-10 | IR_ITS ---
CLINICAL HISTORY: Needs long-term IV access for IV antibiotics.] Right upper extremity DVT. PROCEDURES: 1. Real-time ultrasound guided access into the right internal jugular vein after documentation of selective vessel patency, and permanent imaging storing in the patient records. 2. Placement of a 5 Fr, 23 cm tunneled, single-lumen power injectable Fraga CLINICIAN: Tony Chirinos PA-C MEDICATIONS: -Lidocaine 1% 10 ml, SQ. -Additional details, please see nursing flowsheet. Complications: None. Estimated blood loss: <5 ml Specimens: None. Contrast: None. Fluoroscopy time: 0.9 min PROCEDURE NOTE: The procedure, risks, benefits, and alternatives were carefully explained to the patient and written informed consent was obtained. The patient was placed supine on the fluoroscopy table. A timeout was performed. The right neck and chest was prepped and draped in usual sterile fashion. Local anesthesia was administered to the right neck access site with lidocaine. Under ultrasound guidance, the right internal jugular vein was accessed with a 5 fr micropuncture set. A permanent ultrasound picture was saved. A peel-away sheath was advanced over the wire. The catheter was measured and cut to length. Next, subcutaneous lidocaine was administered to the chest. Using blunt dissection, a subcutaneous tunnel was created that connects from the upper chest to the venotomy site. The catheter was pulled through the tunnel. The catheter was advanced through the sheath, which was subsequent peeled away. The catheter was tested, flushed, and sutured to the skin with its tip in the cavoatrial junction. The venotomy site was closed with surgical glue. A dry sterile dressing was applied to the chest and the venotomy site. A permanent chest fluoroscopic image was saved demonstrating the catheter tip in the cavoatrial junction. The patient was stable after the procedure was transferred back to the floor. IR/IR cvc insert central tunnel IMPRESSION: Placement of a tunneled single lumen Fraga catheter. PLAN: -The catheter may be used immediately. This procedure was performed by Tony Chirinos PA-C, and supervised by Dr. Raygoza Electronically signed by: Edwar Ovalle MD 03/22/2024 04:21 PM [facility]
--- NOTE | ~2024-03-10 | XR_ITS ---
EXAMINATION: XR CHEST CLINICAL INFORMATION: Line placement COMPARISON: November 17, 2023 TECHNIQUE: Frontal portable view of the chest was obtained. 1547 hours FINDINGS: No significant abnormality is noted involving the heart, lungs, mediastinum, bony thorax or soft tissues. XR/XR chest 1V IMPRESSION: Unremarkable examination. Electronically signed by: William Wolf MD 03/15/2024 06:18 PM [facility]
--- NOTE | ~2024-03-10 | US_ITS ---
EXAMINATION: US TRIPLEX LOWER EXTREMITY, LEFT CLINICAL INFORMATION: Recurrent foot infection, thigh pain COMPARISON: None available. TECHNIQUE: Color-flow triplex imaging with spectral analysis and compression Doppler were performed on the left lower extremity. FINDINGS: Respiratory variation, normal compression and augmented flow are noted throughout the left lower extremity. The visualized common femoral vein, superficial femoral vein, profunda femoral vein, popliteal vein and posterior tibial venous segments show no evidence of deep venous thrombosis. The left peroneal vein is not well visualized. There is no Yi's cyst. US/US venous duplex LE LT IMPRESSION: No evidence of deep venous thrombosis involving the left lower extremity. Electronically signed by: Mitchel Carrizales MD 03/10/2024 12:20 PM [facility]
--- NOTE | 2024-03-10 11:18 | ED_ITS ---
HPI - General Adult General Chief complaint: Extremity Injury, Lower Stated complaint: l foot [id number] Time Seen by Provider: 03/10/24 11:56 Source: patient Mode of arrival: ambulatory Limitations: no limitations History of Present Illness ED Provider: Irene Nevarez PA-C HPI narrative: Patient is a 58 year old assigned male at with a history of RIGOBERTO, PAD, DM, and left 5th metatarsal amputation presenting to the emergency department today feeling generally unwell with concerns of a worsening left foot infection. Patient states that he saw his fiber machine tender yesterday he debrided the wound and packed it with iodine then started him on PO Bactrim. Patient states that he took 1 dose of his antibiotic. Patient states that he started to feel unwell with nausea and general malaise. Patient denies any dizziness, lightheadedness, abdominal pain, vomiting, fever, chills, blurry vision, double vision, loss of vision, chest pain, difficulty breathing, shortness of breath, back pain, night sweats, pain with urination, increased urinary frequency, increased urinary urgency, blood in his urine or stool, syncope or a near syncopal episode, recent trauma or falls, bowel incontinence, bladder incontinence, or any other complaints at this time. Relieving factors: none Exacerbating factors: none Associated symptoms: nausea/vomiting Treatments prior to arrival: other (Bactrim - 1 dose.) Related Data Home Medications ?Medication ?Instructions ?Recorded ?Confirmed blood sugar diagnostic (FreeStyle 10/07/20 10/24/23 Test strips) clopidogrel 75 mg tablet 1 tab PO DAILY 10/07/20 03/10/24 simvastatin 40 mg tablet 40 mg PO DAILY@1900 10/07/20 03/10/24 semaglutide 0.25 mg or 0.5 mg (2 2 mg subcut SA 11/22/22 03/10/24 mg/3 mL) subcutaneous pen injector (Ozempic) glipizide 10 mg tablet 10 mg PO BID 10/02/23 03/10/24 metformin 1,000 mg tablet 1,000 mg PO BID 10/02/23 03/10/24 empagliflozin 10 mg tablet 10 mg PO DAILY 01/08/24 03/10/24 (Jardiance) insulin glargine 100 unit/mL (3 80 unit subcut BEDTIME 01/08/24 03/10/24 mL) subcutaneous pen (Basaglar KwikPen U-100 Insulin) lisinopril 2.5 mg tablet 2.5 mg PO DAILY 02/09/24 03/10/24 insulin glargine 100 unit/mL (3 30 unit subcut DAILY 03/10/24 03/10/24 mL) subcutaneous pen (Basaglar KwikPen U-100 Insulin) omeprazole 20 mg capsule,delayed 20 mg PO BID@0630,1630 03/10/24 03/10/24 release sulfamethoxazole 800 1 tab PO BID 03/10/24 03/10/24 mg-trimethoprim 160 mg tablet Previous Rx's ?Medication ?Instructions ?Recorded blood sugar diagnostic #50 ea 12/27/22 Allergies Allergy/AdvReac Type Severity Reaction Status Date / Time penicillin G Allergy Unknown Unknown Verified 03/10/24 11:20 Review of Systems 2 Constitutional: Constitutional: Reports no additional constitutional complaints, Denies chills, Denies fever(s), Reports malaise and Denies night sweats Eyes: Eyes: Reports no additional eye complaints, Denies blurry vision, Denies change in vision, Denies diplopia, Denies eye discharge, Denies loss of vision and Denies eye pain ENT: Denies dizziness Cardiovascular: Cardiovascular: Reports no additional cardiovascular complaints, Denies chest pain, Denies lightheadedness, Denies Loss of Consciousness and Denies dyspnea Respiratory: Respiratory: Reports no additional respiratory complaints and Denies dyspnea Gastrointestinal: Gastrointestinal: Reports no additional gastrointestinal complaints, Denies abdominal pain, Denies melena, Denies hematochezia, Denies change in bowel habits, Denies change in stool character, Reports nausea and Denies vomiting Genitourinary: Genitourinary: Reports no additional male genitourinary complaints, Denies hematuria, Denies oliguria, Denies difficulty urinating, Denies dysuria, Denies urinary frequency, Denies urinary hesitancy, Denies urinary incontinence and Denies urinary urgency Musculoskeletal: Musculoskeletal: Reports no additional musculoskeletal complaints, Denies numbness and Denies tingling Comments: left foot wound Neurologic: Denies dizziness, Denies loss of vision, Denies numbness and Denies tingling Psychiatric: Psychiatric: Reports no additional psychiatric complaints Endocrine: Endocrine: Reports no additional endocrine complaints Hematologic/Lymphatic: Hematologic/Lymphatic: Reports no additional hematologic/lymphatic complaints Allergic/Immunologic: Allergic/Immunologic: Reports no additional allergic/immunologic complaints [facility] Past Medical History Attestation statement: The following information was validated with the patient. Source: old records reviewed and nursing notes reviewed Medical History PAD (peripheral artery disease) Non-healing wound Sepsis 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 Fever Nocturnal hypoxemia Diabetes Restrictive lung disease RIGOBERTO (obstructive sleep apnea) Morbid obesity Surgical History Hx of amputation Hx of right inguinal hernia repair Hx of eye surgery Social History Social History Household Members: Family Housing: Apartment Do you presently have visiting nurse or other home services: Yes ([facility], wound clinic) Alcohol intake: current Alcohol intake frequency: holidays/special occasions only Alcohol type: hard liquor Patient Tobacco Use Status: Former Tobacco user Smoked in Last 30 Days: No Second Hand Smoke Exposure: No Use of substances other than those prescribed or required for medical reasons: No Advance Directives: No Advance Directives Information Provided: Yes Do you have a plan to hurt others: No Plan service: No Physical Exam ED Vital Signs: Vital Signs - 24 hr 03/10/24 11:19 03/10/24 12:00 Temperature 98.9 F 99.6 F Pulse Rate 122 H 118 H Respiratory Rate 19 20 Blood Pressure 114/81 142/72 H Pulse Oximetry 99 96 Oxygen Delivery Method Room Air Room Air BMI result Body Mass Index 41.0 Const General: cooperative, no acute distress, alert and awake Nutritional Appearance: well nourished Orientation/consciousness: patient oriented x3 Limitations: no limitations [facility] Head: Yes normal to inspection and Yes atraumatic Ears: hearing grossly normal bilaterally and external ears normal General nose exam: Normal external nose present, no nasal discharge noted and no epistaxis Face and sinus: Yes normal facial exam, No abrasion and No laceration Mouth: Normal oral and palatal mucosa present, no drooling and no muffled voice Eyes General: appearance normal, both eyes and all related structures Periorbital: periorbital findings normal Eyelids: Yes eyelids normal Conjunctivae: conjunctivae normal Pupils: Equal, round and reactive pupils present EOM: EOMs intact bilaterally Neck Neck: Yes normal visual inspection, Yes full ROM and Yes no lymphadenopathy Chest Chest palpation & inspection: normal inspection of the chest Resp Effort & Inspection: normal respiratory effort and able to speak in complete sentences GI Inspection: Yes normal to inspection Neuro General: patient oriented x3 and moves all extremities Cranial nerves: Yes Equal, round and reactive pupils present Cognition (Neuro): normal cognition Extrem Other: left foot is status post 5th metatarsal amputation wound present to the lateroplantar left foot with surrounding erythema extending to the dorsal aspect of the left foot General: Yes capillary refill normal Psych Appearance: grossly normal Mental Status: mental status grossly normal Affect: normal affect Attitude: cooperative Thought process: Normal thought process present Thought content: Normal thought content present Insight: Good insight present (Psych) Course Course Course Narrative: This is a rapid medical exam performed by Malathi Osman NP: Additional HPI, ROS, PE not included below will be deferred to primary provider. Patient is a 58-year-old male with history of DM, recurrent diabetic foot infections including surgery presenting with complaint of left foot swelling. Saw his surgeon yesterday who was concerned with how the foot appeared, referred pt to the ED. Patient also complaining of left thigh pain today which is new for him. Decreased appetite. Plan: labs, U/S, blood cultures, xray Medications Administered Generic Name Dose Route Start Last Admin Trade Name Freq PRN Reason Stop Dose Admin Enoxaparin Sodium 40 mg 03/10/24 14:00 03/10/24 13:48 Enoxaparin Sodium 40 Mg/0.4 Ml Syringe SUBCUT 40 mg Q24H MICHAEL Administration Discontinued Medications Generic Name Dose Route Start Last Admin Trade Name Freq PRN Reason Stop Dose Admin Ceftriaxone Sodium 1 gm 03/10/24 12:38 03/10/24 12:44 Ceftriaxone Sodium 1 Gm Vial IVPUSH 03/10/24 12:39 1 gm ONCE ONE Administration Vancomycin HCl 2,000 mg in 500 mls @ 250 mls/hr 03/10/24 12:45 03/10/24 12:53 Vancomycin/Ns IV 03/10/24 14:44 250 mls/hr ONCE ONE Administration Lactated Ringer's 1,000 mls @ 999 mls/hr 03/10/24 13:45 03/10/24 13:48 Lr IV 03/10/24 14:45 999 mls/hr .Q1H1M MICHAEL Administration Ondansetron HCl 4 mg 03/10/24 12:47 03/10/24 12:52 Ondansetron Hcl 4 Mg/2 Ml Vial IVPUSH 03/10/24 12:48 4 mg ONCE ONE Administration Medical Decision Making Medical Decision Making [facility] Narrative: Patient is a 58 year old assigned male at with a history of RIGOBERTO, PAD, DM, and left 5th metatarsal amputation presenting to the emergency department today feeling generally unwell with concerns of a worsening left foot infection. Patient's physical exam was as noted in the physical exam portion of this note. Patient's blood work showed WBC 15.4, ESR 88, lactic 2.2, and CRP 35.55. Patient's x-ray of the right foot showed worsening osteomyelitis. I spoke to the hospitalist team who agreed to admission. Patient's clinical presentation is not consistent with sepsis @1238. I spoke to the hospitalist team who agreed to admission. I explained my physical exam findings as well as all test results to the patient. I answered all questions asked by the patient. Patient received IV vanc and ceftriaxone (rather than Zosyn because of PCN allergy). Patient verbalized agreement and understanding with this treatment plan and admission. Differential Diagnosis Differential Diagnoses: The differential diagnosis associated with the presentation includes Osteomyelitis Admission/Observation Consideration of admission/observation: Escalation of care including admission/observation considered Patient admitted. Consult Healthcare Provider Management of the patient was discussed with: Hospitalist (agreed to admission as noted in the MDM Rationale portion of this note.) Lab Data [facility] Lab Attestation statement: I reviewed the patient's lab results. My interpretation of these results are in the MDM Rationale portion of this note. 03/10/24 11:49 03/10/24 11:49 Labs: Lab Results 03/10/24 03/10/24 Range/Units 11:43 11:49 WBC 15.4 H (4.8-10.8) X10*3/uL RBC 4.43 L (4.60-5.80) X10*6/uL Hgb 13.3 L (14.0-18.0) g/dl Hct 38.8 L (42.0-52.0) % MCV 87.6 (80.0-98.0) fL MCH 30.0 (27.0-33.0) pg MCHC 34.3 (31.0-36.0) g/dl RDW 13.4 (11.0-16.0) % Plt Count 184 D (160-400) X10*3/uL MPV 10.5 (9.4-12.4) fL Immature Gran % (Auto) 0.6 H (0.0-0.4) % Neut % (Auto) 82.1 H (45-73) % Lymph % (Auto) 8.3 L (20-40) % [place] % (Auto) 7.5 (2-11) % Eos % (Auto) 1.0 (0-4) % Baso % (Auto) 0.5 (0-2) % Lymph # (Auto) 1.3 (1.2-4.9) X10*3/uL [place] # (Auto) 1.2 (0.1-1.2) X10*3/uL Eos # (Auto) 0.2 (0.0-0.4) X10*3/uL Baso # (Auto) 0.1 (0.0-0.2) X10*3/uL Abs Immat Gran (auto) 0.10 H (0.00-0.03) X10*3/uL Absolute Neuts (auto) 12.7 H (2.0-8.3) x10*3/uL Absolute Nucleated RBC 0.000 (0.0-0.012) X10*3/uL Nucleated RBC % (auto) 0.0 (0.0-0.2) /100WBC ESR 88 H (0-15) MM/HR Sodium 133 L (135-145) mmol/L Potassium 4.1 (3.3-5.1) mmol/L Chloride 97 (96-108) mmol/L Carbon Dioxide 27 (22-29) mmol/L Anion Gap 13 (12-20) BUN 14 (9-16) mg/dL Creatinine 1.16 (0.5-1.4) mg/dL Estim Creat Clear Calc 100.7 Estimated GFR > 60 POC Glucose 349 H (60-115) mg/dL Random Glucose 392 H* (60-115) mg/dL Lactic Acid 2.2 H* (0.5-2.0) mmol/L Calcium 9.6 (8.4-10.2) mg/dL Total Bilirubin 1.9 H (0.0-1.0) mg/dL AST 25 (5-37) U/L ALT 14 (0-40) U/L Alkaline Phosphatase 104 (39-117) U/L C-Reactive Protein 35.55 H (< or = 0.50) mg/dL Total Protein 8.9 H (6.5-8.0) g/dL Albumin 4.0 (3.5-5.0) g/dL Independent Interpretation I performed an independent interpretation of an: Plain X-Ray and Ultrasound Interpretation: My interpretation is in agreement with the radiologist's impression of these imaging studies. L EXAMINATION: XR FOOT, LEFT CLINICAL INFORMATION: hx of amputations, c/f osteo COMPARISON: X-ray dated January 07, 2024 TECHNIQUE: AP, lateral, and oblique views of the left foot. FINDINGS: Periosteal bone reaction and sclerosis at the proximal third and fourth metatarsals. Edema pattern in the plantar and dorsal aspect of the lateral foot. Postsurgical changes, unchanged. Well-corticated to lytic lesion in the calcaneus, likely benign Atherosclerosis disease.. XR/XR foot LT min 3V IMPRESSION: Concerning cellulitis/ osteomyelitis at the proximal fourth and fifth metatarsals and lateral aspect of the left foot. Electronically signed by: Rafael Dias MD 03/10/2024 12:29 PM [facility] Dictated By: Rafael Burton MD Signed By: Electronically signed by Rafael Cash MD 03/10/24 1229 EXAMINATION: US TRIPLEX LOWER EXTREMITY, LEFT CLINICAL INFORMATION: Recurrent foot infection, thigh pain COMPARISON: None available. TECHNIQUE: Color-flow triplex imaging with spectral analysis and compression Doppler were performed on the left lower extremity. FINDINGS: Respiratory variation, normal compression and augmented flow are noted throughout the left lower extremity. The visualized common femoral vein, superficial femoral vein, profunda femoral vein, popliteal vein and posterior tibial venous segments show no evidence of deep venous thrombosis. The left peroneal vein is not well visualized. There is no Yi's cyst. US/US venous duplex LE LT IMPRESSION: No evidence of deep venous thrombosis involving the left lower extremity. Electronically signed by: Mitchel Carrizales MD 03/10/2024 12:20 PM [facility] Dictated By: Mitchel Carrizales MD Signed By: Electronically signed by Mitchel Carrizales MD 03/10/24 1220 Radiology Impression Discussion of test interpretation with radiology: I have reviewed the radiologist's reading. Chronic Conditions Patient?s care impacted by: Diabetes Critical Care Time Critical Care Time Critical Care Time: Yes Total Critical Care Time: 57 Attestation: I spent 57 minutes of Critical Care Time with this patient. This does not include time spent on separately reported billable procedures. Discharge Plan Discharge Clinical Impression: Osteomyelitis Patient Disposition: Admitted As Inpatient
[2024-03-10 11:19] VITALS: BP 114/81; PULSE 122; RESP 19; TEMP 37.2; O2SAT 99; BMI 41.0
[2024-03-10 11:46] LABS: Glucose, Whole Blood 349 mg/dL (60-115)
[2024-03-10 11:56] LABS: MANUAL DIFF FLAG NO
[2024-03-10 11:57] LABS: Basophils Absolute Auto 0.1 X10*3/uL (0.0-0.2); Basophils Percent Auto 0.5 % (0-2); Eosinophils Absolute Auto 0.2 X10*3/uL (0.0-0.4); Hematocrit 38.8 % (42.0-52.0); Hemoglobin 13.3 g/dl (14.0-18.0); Imm Gran Pct Auto 0.6 % (0.0-0.4); Lymphocytes Absolute Auto 1.3 X10*3/uL (1.2-4.9); Lymphocytes Percent Auto 8.3 % (20-40); Mean Corpuscular HGB Conc 34.3 g/dl (31.0-36.0); Mean Corpuscular Volume 87.6 fL (80.0-98.0); Mean Platelet Volume 10.5 fL (9.4-12.4); Monocytes Absolute Auto 1.2 X10*3/uL (0.1-1.2); Monocytes Percent Auto 7.5 % (2-11); Neutrophils Absolute Auto 12.7 x10*3/uL (2.0-8.3); Neutrophils Percent Auto 82.1 % (45-73); Platelet Count 184 X10*3/uL (160-400); Red Blood Count 4.43 X10*6/uL (4.60-5.80); Red Cell Distribution Width 13.4 % (11.0-16.0); White Blood Count 15.4 X10*3/uL (4.8-10.8)
[2024-03-10 12:00] VITALS: BP 142/72; PULSE 118; RESP 20; TEMP 37.6; O2SAT 96
[2024-03-10 12:15] LABS: Lactic Acid 2.2 mmol/L (0.5-2.0)
[2024-03-10 12:16] LABS: Alanine Aminotransferase 14 U/L (0-40); Alkaline Phosphatase 104 U/L (39-117); Anion Gap 13 (12-20); Aspartate Amino Transferase 25 U/L (5-37); Bilirubin Total 1.9 mg/dL (0.0-1.0); Blood Urea Nitrogen 14 mg/dL (9-16); C Reactive Protein 35.55 mg/dL (< or = 0.50); Calcium 9.6 mg/dL (8.4-10.2); Carbon Dioxide 27 mmol/L (22-29); Chloride 97 mmol/L (96-108); Creatinine Clr Calc Pharmacy 100.7; Estimated Glomerular Filt Rate > 60; Glucose Random 392 mg/dL (60-115); Potassium 4.1 mmol/L (3.3-5.1); Sodium 133 mmol/L (135-145); Total Protein 8.9 g/dL (6.5-8.0)
[2024-03-10 12:31] LABS: Erythrocyte Sedimentation Rate 88 MM/HR (0-15)
[2024-03-10] MEDS: cefTRIAXone sodium 1 GM VIAL IVPUSH (12:44)
[2024-03-10] MEDS: ondansetron HCL 4 MG/2 ML VIAL IVPUSH (12:52)
[2024-03-10] MEDS: vancomycin/NS 2,000 MG/500 ML PLAST..BAG 250 MG IV (12:53)
--- NOTE | 2024-03-10 12:58 | PM.IMHP ---
History of Present Illness Date of Service: 03/10/24 Attending physician on admission: Bernarda De Paz Chief Complaint: Foot infection, fever Pt is a 58-year-old male with a PMH significant for HLD, insulin-dependent type 2 diabetes, peripheral vascular disease, hx of osteo, and RIGOBERTO not compliant with CPAP who presents to the ED with?fever and worsening left foot infection. Patient previously diagnosed with osteomyelitis in at [facility] and had amputation of left 5th digit. Was discharged on 6 weeks of vancomycin. Patient presented to the hospital here at [facility] on 01/08/2024 and treated for acute osteomyelitis of 4th metatarsal as well as possible 3rd metatarsal and was discharged again on 6 weeks of vancomycin. Patient follows with Dr. Gabriel at [facility] and presented there yesterday for follow-up visit where patient had temperature of 101.4 degrees, and left foot was noted to be swollen and red after 8 was unwrapped. Wound was debrided and packed with iodine and patient was started on Bactrim p.o.. Patient's fever increased at home to 103.4 last night inpatient began taking Tylenol. This morning awoke and felt much worse with nausea, vomiting, and general malaise. Denies abdominal pain or diarrhea. No chest pain/pressure, palpitations. Denies shortness or breath or difficulty breathing. In the ED pt was tachycardic up to 122, hypertensive up to 142/72, and mildly elevated temp of 99.6 degrees. Labs were significant for leukocytosis of 15.4, ESR 88, CRP 35.55, sodium 133, glucose 392, lactic acid 2.2, and T bili of 1.9. X-ray of left foot concerning for cellulitis/osteomyelitis at proximal 4th and 5th metatarsals and lateral aspect of left foot. ?Left lower extremity venous duplex negative for DVT. Pt was treated with ondansetron, ceftriaxone, and vancomycin. Pt will be admitted to the hospital for treatment and further evaluation of acute osteomyelitis of left foot with sepsis. Review of Systems Review of Systems: Negative except for that which is stated in the HPI. [facility] Medical History PAD (peripheral artery disease) Non-healing wound Sepsis 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 Fever Nocturnal hypoxemia Diabetes Restrictive lung disease RIGOBERTO (obstructive sleep apnea) Morbid obesity Surgical History Hx of amputation Hx of right inguinal hernia repair Hx of eye surgery Social History Household Members: Family Housing: Apartment Do you presently have visiting nurse or other home services: Yes ([facility], wound clinic) Alcohol intake: current Alcohol intake frequency: does not drink Patient Tobacco Use Status: Former Tobacco user Second Hand Smoke Exposure: No Advance Directives: No Advance Directives Information Provided: Yes Do you have a plan to hurt others: No Plan service: No Meds Allergies Allergy/AdvReac Type Severity Reaction Status Date / Time penicillin G Allergy Unknown Unknown Verified 03/10/24 11:20 Active Medications: Current Medications Vancomycin HCl (Vancomycin/Ns) 2,000 mg in 500 mls @ 250 mls/hr IV ONCE ONE Stop: 03/10/24 14:44 Last Admin: 03/10/24 12:53 Dose: 250 mls/hr Home Medications ?Medication ?Instructions ?Recorded ?Confirmed ?Last Taken ?Type blood sugar diagnostic (FreeStyle 10/07/20 10/24/23 1 Day Ago History Test strips) ~10/06/20 clopidogrel 75 mg tablet 1 tab PO DAILY 10/07/20 01/08/24 01/07/24 History simvastatin 40 mg tablet 40 mg PO DAILY@199910/07/20 01/08/24 01/06/24 History semaglutide 0.25 mg or 0.5 mg (2 2 mg subcut TU 11/22/22 01/08/24 01/06/24 History mg/3 mL) subcutaneous pen injector (Ozempic) glipizide 10 mg tablet 10 mg PO BID 10/02/23 01/08/24 01/07/24 History metformin 1,000 mg tablet 1,000 mg PO BID 10/02/23 01/08/24 01/07/24 History empagliflozin 10 mg tablet 10 mg PO DAILY 01/08/24 01/08/24 01/07/24 History (Jardiance) insulin glargine 100 unit/mL (3 80 unit subcut BEDTIME 01/08/24 01/08/24 01/06/24 History mL) subcutaneous pen (Stan Scott U-100 Insulin) lisinopril 2.5 mg tablet 2.5 mg PO DAILY 02/09/24 Unknown History Physical Exam Vital Signs and Narrative: Vital Signs: Last Vital Signs Temp 99.6 F 03/10/24 12:00 Pulse 118 H 03/10/24 12:00 Resp 20 03/10/24 12:00 BP 142/72 H 03/10/24 12:00 Pulse Ox 96 03/10/24 12:00 O2 Del Method Room Air 03/10/24 12:00 BMI result Body Mass Index 41.0 General: AOx3, no acute distress Resp: CTA bilaterally CVS: S1, S2, regular rate, tachycardic GI: +BS, NT, no distention Skin: Warm, dry Neuro: Cranial nerves II-XII grossly intact bilaterally. Motor grossly intact bilaterally Extremities: Left foot erythematous and swollen with chronic wound on plantar aspect as pictured below Psych: Appropriate affect Results Labs 03/10/24 11:49 03/10/24 11:49 Labs: Laboratory Results - last 24 hr 03/10/24 03/10/24 11:43 11:49 MCV 87.6 MCH 30.0 MCHC 34.3 RDW 13.4 Plt Count 184 D MPV 10.5 Immature Gran % (Auto) 0.6 H Neut % (Auto) 82.1 H Lymph % (Auto) 8.3 L [place] % (Auto) 7.5 Eos % (Auto) 1.0 Baso % (Auto) 0.5 Lymph # (Auto) 1.3 [place] # (Auto) 1.2 Eos # (Auto) 0.2 Baso # (Auto) 0.1 Abs Immat Gran (auto) 0.10 H Absolute Neuts (auto) 12.7 H Absolute Nucleated RBC 0.000 Nucleated RBC % (auto) 0.0 ESR 88 H Anion Gap 13 Estim Creat Clear Calc 100.7 Estimated GFR > 60 POC Glucose 349 H Random Glucose 392 H* Lactic Acid 2.2 H* Calcium 9.6 Total Bilirubin 1.9 H AST 25 ALT 14 Alkaline Phosphatase 104 C-Reactive Protein 35.55 H Total Protein 8.9 H Albumin 4.0 Imaging Radiologist's Impressions: Impressions Foot X-Ray 03/10/24 11:20 IMPRESSION: Concerning cellulitis/ osteomyelitis at the proximal fourth and fifth metatarsals and lateral aspect of the left foot. Electronically signed by: Rafael Dias MD 03/10/2024 12:29 PM EST RP Venous Duplex 03/10/24 11:49 IMPRESSION: No evidence of deep venous thrombosis involving the left lower extremity. Electronically signed by: Mitchel Carrizales MD 03/10/2024 12:20 PM EST RP Assessment and Plan (1) Cellulitis of left foot: Status: Acute (2) Diabetic foot infection: Status: Acute (3) Osteomyelitis: Qualifiers: Osteomyelitis type: other acute Osteomyelitis location: foot Laterality: left Qualified Code(s): M86.172 - Other acute osteomyelitis, left ankle and foot Status: Acute Plan Pt is a 58-year-old male with a PMH significant for HLD, insulin-dependent type 2 diabetes, peripheral vascular disease, hx of osteo, and RIGOBERTO not compliant with CPAP who presents to the ED with?fever and worsening left foot infection. Pt will be admitted to the hospital for treatment and further evaluation of acute osteomyelitis of left foot with sepsis. Acute left foot osteomyelitis Secondary to chronic diabetic foot ulcer ESR 88, CRP 35.55, x-ray showing likely cellulitis/osteomyelitis at proximal 4th and 5th metatarsals and lateral aspect of left foot Meets sepsis criteria: Tachycardia, leukocytosi; lactic acid 2.2 Will give IVF, treat with vancomycin and ceftriaxone, started 03/10/2024 Vascular surgery consult Insulin-dependent type 2 diabetes Poorly controlled, random glucose 392 at time of presentation Place on sliding scale insulin, Lantus Diabetic diet Continue glipizide, Jardiance, and lisinopril Hold metformin HLD Continue statin Peripheral artery disease Continue clopidogrel Full Code Attending:?Dr. De Paz DVT Prophylaxis: Lovenox Pt will require a hospitalization of at least two nights for treatment of?acute left foot osteomyelitis meeting sepsis criteria that will require administration of IV antibiotics and specialist consultation with vascular surgery for possible surgical intervention. Quality Stroke Does the patient have a stroke diagnosis?: No VTE Prior VTE?: No VTE Risk Level:: Medical - moderate - high VTE Device Contraindication: Treatment Not Indicated VTE Drug Contraindication: N/A - Med Ordered
[2024-03-10] MEDS: Lactated Ringers 1,000 ML 999 ML IV (13:48)
[2024-03-10] MEDS: Enoxaparin Sodium 40 MG/0.4 ML SYRINGE SUBCUT (13:48)
[2024-03-10 13:54] LABS: Reflex Lactate? Lactic Acid Added
--- NOTE | 2024-03-10 14:11 | PHA.MEDREC ---
Pharmacy Consult ? Medication Reconciliation Pharmacy has completed the medication reconciliation. Spoke to patient and confirmed medication list. Patient said he takes Basaglar 30 units in the morning and 80 units at bedtime. He confirmed he is still taking Jardiance 10 mg (even though I reminded him that he last picked up 30 day supply on 11/03/23) and lisinopril 2.5 mg (last parts picker 90 day supply on 08/25/23). He takes Ozempic 2 mg on Friday. He no longer takes oxycodone nor ibuprofen. He took one dose of the Bactrim DS yesterday 03/09/24. Last dose of medications was yesterday 03/09/24 morning.
--- NOTE | 2024-03-10 14:22 | PM.CNGS ---
History of Present Illness Consult details Consult date: 03/10/24 Narrative: We are consulted for Serafin, a pleasant 58-year-old male patient, presenting to the ER today with concerns of an ongoing left foot ulcer with infection. He recently completed a 12 week course of IV vanco, completing on February 17. He is also status post L5 toe amputation by [facility] [place]. He has been seen by Dr. Caceres on January 11 when he came into the ER for similar issues of a nonhealing ulcer and recently had an arterial duplex on that day. He endorses pain in the foot. He just recently saw his vascular surgeon yesterday and was placed on p.o. Bactrim for the infection. X-ray in the ER today notes osteomyelitis in the proximal 4th and 5th metatarsals and lateral aspect of the left foot. He is being admitted for IV antibiotics. Review of Systems Constitutional: Constitutional: Reports as per HPI and Denies weakness ENT: Reports Normal hearing present and Denies dizziness Cardiovascular: Cardiovascular: Reports as per HPI, Denies chest pain, Denies chest pain at rest, Denies chest pain with activity, Denies dyspnea and Denies dyspnea on exertion Respiratory: Respiratory: Reports as per HPI, Denies cough, Denies dyspnea and Denies dyspnea on exertion Gastrointestinal: Gastrointestinal: Reports as per HPI, Denies abdominal pain, Denies nausea and Denies vomiting Musculoskeletal: Musculoskeletal: Denies numbness Integumentary/Breasts: Skin/Breast: Reports as per HPI, Denies erythema and Denies wounds Neurologic: Reports Normal hearing present, Denies dizziness, Denies numbness, Denies Sensory deficit (Neuro) and Denies weakness Psychiatric: Psychiatric: Reports no additional psychiatric complaints Endocrine: Endocrine: Reports no additional endocrine complaints [facility] Past Medical History Medical History PAD (peripheral artery disease) Non-healing wound Sepsis 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 Fever Nocturnal hypoxemia Diabetes Restrictive lung disease RIGOBERTO (obstructive sleep apnea) Morbid obesity Surgical History Surgical History Hx of amputation Hx of right inguinal hernia repair Hx of eye surgery Social History Social History Household Members: Family Housing: Apartment Do you presently have visiting nurse or other home services: Yes (vna, wound clinic) Alcohol intake: current Alcohol intake frequency: holidays/special occasions only Alcohol type: hard liquor Patient Tobacco Use Status: Former Tobacco user Smoked in Last 30 Days: No Second Hand Smoke Exposure: No Use of substances other than those prescribed or required for medical reasons: No Advance Directives: No Advance Directives Information Provided: Yes Do you have a plan to hurt others: No Plan service: No Meds Allergies Allergy/AdvReac Type Severity Reaction Status Date / Time penicillin G Allergy Unknown Unknown Verified 03/10/24 11:20 Active Medications: Current Medications Acetaminophen (Acetaminophen 325 Mg Tablet) 650 mg PO Q6H PRN PRN Reason: Pain, Mild (Pain Scale 1-3), fever or headache Benzonatate (Benzonatate 100 Mg Capsule) 100 mg PO TID PRN PRN Reason: Cough Calcium Carbonate (Calcium Carbonate 750 Mg Tab.Chew) 750 mg PO Q4H PRN PRN Reason: Heartburn Ceftriaxone Sodium (Ceftriaxone Sodium 1 Gm Vial) 1 gm IVPUSH Q24H MICHAEL Enoxaparin Sodium (Enoxaparin Sodium 40 Mg/0.4 Ml Syringe) 40 mg SUBCUT Q24H [facility] Last Admin: 03/10/24 13:48 Dose: 40 mg Glucose (Glucose Gel 15 Gm Gel..Gram.) 15 gm PO Q15M PRN; Protocol PRN Reason: per Hypoglycemia Standing Ord. Vancomycin HCl (Vancomycin/Ns) 2,000 mg in 500 mls @ 250 mls/hr IV ONCE ONE Stop: 03/10/24 14:44 Last Admin: 03/10/24 12:53 Dose: 250 mls/hr Dextrose (D10) 250 mls @ 750 mls/hr IV Q15M PRN; Protocol PRN Reason: per Hypoglycemia Standing Ord. Lactated Ringer's (Lr) 1,000 mls @ 999 mls/hr IV .Q1H1M MICHAEL Stop: 03/10/24 14:45 Last Admin: 03/10/24 13:48 Dose: 999 mls/hr Vancomycin HCl 1,250 mg/ (Sodium Chloride) 250 mls @ 166.667 mls/hr IV Q12H MICHAEL Insulin Human Lispro (Insulin Lispro 100 Unit/Ml 3 Ml Vial) 0 unit SUBCUT QIDACHS [facility]; Protocol Magnesium Hydroxide (Milk Of Magnesia 30 Ml Oral.Susp) 30 ml PO DAILY PRN PRN Reason: Constipation Melatonin (Melatonin 3 Mg Tablet) 6 mg PO BEDTIME PRN PRN Reason: Insomnia Ondansetron HCl (Ondansetron Hcl 4 Mg/2 Ml Vial) 4 mg IVPUSH Q8H PRN PRN Reason: Nausea and Vomiting Pharmacy Consult (Consult Rx Vancomycin Dosing) 1 each MISCELLANE DAILY PRN PRN Reason: Consult order Sodium Chloride (0.9 % Sodium Chloride Flush 3 Ml Syringe) 3 ml IVFLUSH [facility] Medications ?Medication ?Instructions ?Recorded ?Confirmed ?Last Taken ?Type blood sugar diagnostic (FreeStyle 10/07/20 10/24/23 1 Day Ago History Test strips) ~10/06/20 clopidogrel 75 mg tablet 1 tab PO DAILY 10/07/20 03/10/24 03/09/24 History simvastatin 40 mg tablet 40 mg PO DAILY@1900 10/07/20 03/10/24 03/08/24 History semaglutide 0.25 mg or 0.5 mg (2 2 mg subcut SA 11/22/22 03/10/24 03/06/24 History mg/3 mL) subcutaneous pen injector (Ozempic) glipizide 10 mg tablet 10 mg PO BID 10/02/23 03/10/24 03/09/24 History metformin 1,000 mg tablet 1,000 mg PO BID 10/02/23 03/10/24 03/09/24 History empagliflozin 10 mg tablet 10 mg PO DAILY 01/08/24 03/10/24 03/09/24 History (Jardiance) insulin glargine 100 unit/mL (3 80 unit subcut BEDTIME 01/08/24 03/10/24 03/08/24 History mL) subcutaneous pen (Basaglar KwikPen U-100 Insulin) lisinopril 2.5 mg tablet 2.5 mg PO DAILY 02/09/24 03/10/24 03/09/24 History insulin glargine 100 unit/mL (3 30 unit subcut DAILY 03/10/24 03/10/24 03/09/24 History mL) subcutaneous pen (Basaglar KwikPen U-100 Insulin) omeprazole 20 mg capsule,delayed 20 mg PO BID@0630,1630 03/10/24 03/10/24 03/09/24 History release sulfamethoxazole 800 1 tab PO BID 03/10/24 03/10/24 03/09/24 History mg-trimethoprim 160 mg tablet Physical Exam Vital Signs: Vital Signs: Last Vital Signs Temp 99.6 F 03/10/24 12:00 Pulse 118 H 03/10/24 12:00 Resp 20 03/10/24 12:00 BP 142/72 H 03/10/24 12:00 Pulse Ox 96 03/10/24 12:00 O2 Del Method Room Air 03/10/24 12:00 BMI result Body Mass Index 41.0 Const: General: comfortable and no acute distress Orientation/consciousness: patient oriented x3 HEENT: Ears: hearing grossly normal bilaterally Resp: Effort & Inspection: normal respiratory effort and able to speak in complete sentences Auscultation: clear to auscultation bilaterally Cardio: Rate: regular rate Rhythm: regular rhythm Heart sounds: S1 normal heart sound present and S2 normal heart sound present Bruits: no abdominal aortic bruits, no carotid bruits, no femoral bruits and no renal bruits GI: Palpation (GI): No Abdominal aortic bruit present Neuro: General: patient oriented x3 Cranial nerves: Yes Normal hearing present Sensory Exam: No Sensory deficit (Neuro) Extrem: Other: Left foot: Wrapped in Kerlix, just dressed, did not take dressing down. Palpable DP pulses. Results Labs 03/10/24 11:49 03/10/24 11:49 Labs: Abnormal lab results 03/10/24 03/10/24 Range/Units 11:43 11:49 WBC 15.4 H (4.8-10.8) X10*3/uL RBC 4.43 L (4.60-5.80) X10*6/uL Hgb 13.3 L (14.0-18.0) g/dl Hct 38.8 L (42.0-52.0) % Immature Gran % (Auto) 0.6 H (0.0-0.4) % Neut % (Auto) 82.1 H (45-73) % Lymph % (Auto) 8.3 L (20-40) % Abs Immat Gran (auto) 0.10 H (0.00-0.03) X10*3/uL Absolute Neuts (auto) 12.7 H (2.0-8.3) x10*3/uL ESR 88 H (0-15) MM/HR Sodium 133 L (135-145) mmol/L POC Glucose 349 H (60-115) mg/dL Random Glucose 392 H* (60-115) mg/dL Lactic Acid 2.2 H* (0.5-2.0) mmol/L Total Bilirubin 1.9 H (0.0-1.0) mg/dL C-Reactive Protein 35.55 H (< or = 0.50) mg/dL Total Protein 8.9 H (6.5-8.0) g/dL Short CBC 03/10/24 Range/Units 11:49 WBC 15.4 H (4.8-10.8) X10*3/uL Hgb 13.3 L (14.0-18.0) g/dl Hct 38.8 L (42.0-52.0) % Plt Count 184 D (160-400) X10*3/uL BMP 03/10/24 11:49 Sodium 133 L Potassium 4.1 Chloride 97 Carbon Dioxide 27 BUN 14 Creatinine 1.16 Calcium 9.6 Liver Function 03/10/24 Range/Units 11:49 Total Bilirubin 1.9 H (0.0-1.0) mg/dL AST 25 (5-37) U/L ALT 14 (0-40) U/L Alkaline Phosphatase 104 (39-117) U/L Albumin 4.0 (3.5-5.0) g/dL All other labs normal. Assessment and Plan (1) PAD (peripheral artery disease): Status: Acute Plan Mitchel presented to the ER earlier today with concerns of an infection in his left foot. He saw his surgeon yesterday at [facility] for a follow up to left 5 toe amputation. He recently completed a 12 week course of IV vanco on February 17. He was recently seen by Dr. Caceres on 01/11 at a last ER visit, and an arterial duplex was completed, which reveals left post tibial occlusive disease. He was advised to follow up outpatient with Dr. Caceres, there was no further appointments made after discharge. At this point, there is no acute surgical intervention required. We will not need to repeat the arterial duplex at this point, since it was only done less than 2 months ago. We will continue to monitor. We do advise the patient follow up with his vascular surgeon at [facility]. Thank you for the consult. If there are any questions or concerns, please do not hesitate to reach out to us. Procedures Date of Service Date of Service: 03/10/24
[2024-03-10 14:54] LABS: ~Lactic Acid-LAB USE ONLY 1.9 mmol/L (0.5-2.0)
[2024-03-10] MEDS: Acetaminophen 325 MG TABLET 650 MG PO (17:11)
[2024-03-10 17:14] VITALS: BP 123/59; PULSE 112; RESP 16; TEMP 38.3; O2SAT 93
[2024-03-10 17:16] LABS: Glucose, Whole Blood 297 mg/dL (60-115)
[2024-03-10] MEDS: Insulin Lispro 100 UNIT/ML 3 ML VIAL SUBCUT ×2 (17:17→21:29)
[2024-03-10] MEDS: oxyCODONE HCl Immed Release 5 MG TABLET PO (17:21)
--- NOTE | 2024-03-10 17:29 | PC.NURSE ---
Patient came in with lle cellulitis. iv 20g right AC getting iv vanco, and rocephin. Alert and oriented x 3. ambulates independently. voiding in urinal. Hx of iv antibiotics at home via PICC line . POC- cover with 6 units. temp-101.0 tylenol just given and oxycodone for 7/10 pain in left foot (wears a walking boot)
[2024-03-10 18:34] VITALS: BP 104/55; PULSE 112; RESP 20; TEMP 37.3; O2SAT 93
[2024-03-10 19:55] LABS: Glucose, Whole Blood 328 mg/dL (60-115)
[2024-03-10] MEDS: vancomycin HCL 1,250 MG in 0.9 % Sodium Chloride 250 ML 166.67 MG IV (23:15)
[2024-03-10] MEDS: Insulin Glargine,Hum.rec.anlog 100 UNIT/ML 10 ML VIAL 56 UNIT SUBCUT (23:17)
[2024-03-10] MEDS: glipiZIDE 10 MG TABLET PO (23:23)
[2024-03-11] MEDS: Acetaminophen 325 MG TABLET 650 MG PO (03:25)
[2024-03-11 03:58] VITALS: BP 131/60; PULSE 85; RESP 20; TEMP 36.8; O2SAT 95
--- NOTE | 2024-03-11 04:58 | PC.NURSE ---
postive blood cx gram positive cocci in clusters aware
[2024-03-11] MEDS: Pantoprazole Sodium 20 MG TABLET.DR 40 MG PO ×2 (05:53→16:06)
[2024-03-11 06:48] LABS: Anion Gap 13 (12-20); Blood Urea Nitrogen 16 mg/dL (9-16); Carbon Dioxide 23 mmol/L (22-29); Chloride 101 mmol/L (96-108); Creatinine Clr Calc Pharmacy 107.1; Estimated Glomerular Filt Rate > 60; Glucose Random 199 mg/dL (60-115); Potassium 3.6 mmol/L (3.3-5.1); Sodium 133 mmol/L (135-145)
[2024-03-11 06:55] LABS: Hematocrit 33.2 % (42.0-52.0); Hemoglobin 11.4 g/dl (14.0-18.0); Mean Corpuscular HGB Conc 34.3 g/dl (31.0-36.0); Mean Corpuscular Hemoglobin 29.8 pg (27.0-33.0); Mean Corpuscular Volume 86.9 fL (80.0-98.0); Mean Platelet Volume 10.3 fL (9.4-12.4); Platelet Count 180 X10*3/uL (160-400); Red Blood Count 3.82 X10*6/uL (4.60-5.80); Red Cell Distribution Width 13.4 % (11.0-16.0); White Blood Count 11.9 X10*3/uL (4.8-10.8)
[2024-03-11 07:06] VITALS: BP 135/72; PULSE 102; RESP 18; TEMP 36.8; O2SAT 99
[2024-03-11 07:24] LABS: Glucose, Whole Blood 166 mg/dL (60-115)
[2024-03-11] MEDS: Insulin Lispro 100 UNIT/ML 3 ML VIAL SUBCUT ×3 (08:17→16:29)
[2024-03-11] MEDS: Insulin Glargine,Hum.rec.anlog 100 UNIT/ML 10 ML VIAL 23 UNIT SUBCUT (08:18)
[2024-03-11] MEDS: glipiZIDE 10 MG TABLET PO ×2 (08:18→21:16)
[2024-03-11] MEDS: Empagliflozin 10 MG TABLET PO (08:18)
[2024-03-11] MEDS: Clopidogrel Bisulfate 75 MG TABLET PO (08:19)
[2024-03-11] MEDS: 0.9 % Sodium Chloride Flush 3 ML SYRINGE IVFLUSH ×3 (08:20→22:00)
[2024-03-11 08:23] VITALS: BP 120/59
[2024-03-11] MEDS: lisinopriL 2.5 MG TABLET PO (08:23)
--- NOTE | 2024-03-11 09:39 | MHC.CM.PN ---
IMM DELIVERED PT LIVES WITH DAUGHTER AND GRANDCHILDREN. PT USES WALKING BOOT FOR MOBILITY. USES CANE PRN. PT HAS AN ELECTRIC SCOOTER FOR LONG DISTANCE. ACTIVE WITH ENHABIT VNA. + HCP PER PT, STATES HE HAS ONE ON FILE HERE. WILL ATTEMPT TO LOCATE. PCP DR. PICHARDO DP: HOME WITH RESUMPTION OF ENHABIT [facility]NA IS THE GOAL. DAUGHTER WILL TRANSPORT. CM WILL CONTINUE TO FOLLOW FOR ANY CHANGE TO DC PLAN/NEEDS.
--- NOTE | 2024-03-11 09:54 | HO.PM.IMPN ---
Subjective Subjective Date of Service: 03/11/24 Interval History: Follow-up on MRSA bacteremia, and osteomyelitis of the foot Physical Exam Vital Signs: Vital Signs: Last Vital Signs Temp 98.2 F 03/11/24 07:06 Pulse 102 H 03/11/24 07:06 Resp 18 03/11/24 07:06 BP 120/59 L 03/11/24 08:23 Pulse Ox 99 03/11/24 07:06 O2 Del Method Room Air 03/11/24 07:06 BMI result Body Mass Index 41.0 General: AO X 3, no acute distress Resp: CTA bilateral CVS: S1,S2,RRR GI: +BS, NT, no distention Skin/msk: see pics in H and P Neuro: motor grossly intact Psych: appropriate affect Objective Data Active Medications Acetaminophen (Acetaminophen 325 Mg Tablet) 650 mg PO Q6H PRN PRN Reason: Pain, Mild (Pain Scale 1-3), fever or headache Last Admin: 03/11/24 03:25 Dose: 650 mg Documented By: TRENT Atorvastatin Calcium (Atorvastatin Calcium 20 Mg Tablet) 20 mg PO DAILY@1900 [facility] Benzonatate (Benzonatate 100 Mg Capsule) 100 mg PO TID PRN PRN Reason: Cough Calcium Carbonate (Calcium Carbonate 750 Mg Tab.Chew) 750 mg PO Q4H PRN PRN Reason: Heartburn Ceftriaxone Sodium (Ceftriaxone Sodium 1 Gm Vial) 1 gm IVPUSH Q24H [facility] Clopidogrel Bisulfate (Clopidogrel Bisulfate 75 Mg Tablet) 75 mg PO DAILY [facility] Last Admin: 03/11/24 08:19 Dose: 75 mg Documented By: DEVON Empagliflozin (Empagliflozin 10 Mg Tablet) 10 mg PO DAILY [facility] Last Admin: 03/11/24 08:18 Dose: 10 mg Documented By: DEVON Enoxaparin Sodium (Enoxaparin Sodium 40 Mg/0.4 Ml Syringe) 40 mg SUBCUT Q24H [facility] Last Admin: 03/10/24 13:48 Dose: 40 mg Documented By: RACHEL Glipizide (Glipizide 10 Mg Tablet) 10 mg PO BID [facility] Last Admin: 03/11/24 08:18 Dose: 10 mg Documented By: DEVON Glucose (Glucose Gel 15 Gm Gel..Gram.) 15 gm PO Q15M PRN; Protocol PRN Reason: per Hypoglycemia Standing Ord. Dextrose (D10) 250 mls @ 750 mls/hr IV Q15M PRN; Protocol PRN Reason: per Hypoglycemia Standing Ord. Vancomycin HCl 1,250 mg/ (Sodium Chloride) 250 mls @ 166.667 mls/hr IV Q12H [facility] Last Infusion: 03/11/24 00:53 Dose: Infused Documented By: OLAMIDE Insulin Glargine (Insulin Glargine,Hum.Rec.Anlog 100 Unit/Ml 10 Ml Vial) 56 unit SUBCUT BEDTIME [facility] Last Admin: 03/10/24 23:17 Dose: 56 unit Documented By: OLAMIDE Insulin Glargine (Insulin Glargine,Hum.Rec.Anlog 100 Unit/Ml 10 Ml Vial) 23 unit SUBCUT DAILY [facility] Last Admin: 03/11/24 08:18 Dose: 23 unit Documented By: DEVON Insulin Human Lispro (Insulin Lispro 100 Unit/Ml 3 Ml Vial) 0 unit SUBCUT QIDACHS [facility]; Protocol Last Admin: 03/11/24 08:17 Dose: 2 unit Documented By: DEVON Lisinopril (Lisinopril 2.5 Mg Tablet) 2.5 mg PO DAILY [facility]; Protocol Last Admin: 03/11/24 08:23 Dose: 2.5 mg Documented By: DEVON Magnesium Hydroxide (Milk Of Magnesia 30 Ml Oral.Susp) 30 ml PO DAILY PRN PRN Reason: Constipation Melatonin (Melatonin 3 Mg Tablet) 6 mg PO BEDTIME PRN PRN Reason: Insomnia Ondansetron HCl (Ondansetron Hcl 4 Mg/2 Ml Vial) 4 mg IVPUSH Q8H PRN PRN Reason: Nausea and Vomiting Oxycodone HCl (Oxycodone Hcl Immed Release 5 Mg Tablet) 5 mg PO Q4H PRN PRN Reason: Pain, Severe (Pain Scale 7-10) Last Admin: 03/10/24 17:21 Dose: 5 mg Documented By: RACHEL Pantoprazole Sodium (Pantoprazole Sodium 20 Mg Tablet.) 40 mg PO BID@0630,1630 [facility] Last Admin: 03/11/24 05:53 Dose: 40 mg Documented By: OLAMIDE Pharmacy Consult (Consult Rx Vancomycin Dosing) 1 each MISCELLANE DAILY PRN PRN Reason: Consult order Sodium Chloride (0.9 % Sodium Chloride Flush 3 Ml Syringe) 3 ml IVFLUSH QSHIFT [facility] Last Admin: 03/11/24 08:20 Dose: 3 ml Documented By: DEVON Labs 03/11/24 05:48 03/11/24 05:48 Labs: Laboratory Results - last 24 hr 03/10/24 03/10/24 03/10/24 11:43 11:49 14:34 MCV 87.6 MCH 30.0 MCHC 34.3 RDW 13.4 Plt Count 184 D MPV 10.5 Immature Gran % (Auto) 0.6 H Neut % (Auto) 82.1 H Lymph % (Auto) 8.3 L [place] % (Auto) 7.5 Eos % (Auto) 1.0 Baso % (Auto) 0.5 Lymph # (Auto) 1.3 [place] # (Auto) 1.2 Eos # (Auto) 0.2 Baso # (Auto) 0.1 Abs Immat Gran (auto) 0.10 H Absolute Neuts (auto) 12.7 H Absolute Nucleated RBC 0.000 Nucleated RBC % (auto) 0.0 ESR 88 H Anion Gap 13 Estim Creat Clear Calc 100.7 Estimated GFR > 60 POC Glucose 349 H Random Glucose 392 H* Lactic Acid 2.2 H* Lactic Acid F/U @ 2Hr 1.9 Calcium 9.6 Total Bilirubin 1.9 H AST 25 ALT 14 Alkaline Phosphatase 104 C-Reactive Protein 35.55 H Total Protein 8.9 H Albumin 4.0 03/10/24 03/10/24 03/11/24 17:09 19:51 05:48 MCV 86.9 MCH 29.8 MCHC 34.3 RDW 13.4 Plt Count 180 MPV 10.3 Immature Gran % (Auto) Neut % (Auto) Lymph % (Auto) [place] % (Auto) Eos % (Auto) Baso % (Auto) Lymph # (Auto) [place] # (Auto) Eos # (Auto) Baso # (Auto) Abs Immat Gran (auto) Absolute Neuts (auto) Absolute Nucleated RBC 0.000 Nucleated RBC % (auto) 0.0 ESR Anion Gap 13 Estim Creat Clear Calc 107.1 Estimated GFR > 60 POC Glucose 297 H 328 H Random Glucose 199 H Lactic Acid Lactic Acid F/U @ 2Hr Calcium 9.0 D Total Bilirubin AST ALT Alkaline Phosphatase C-Reactive Protein Total Protein Albumin 03/11/24 07:08 MCV MCH MCHC RDW Plt Count MPV Immature Gran % (Auto) Neut % (Auto) Lymph % (Auto) [place] % (Auto) Eos % (Auto) Baso % (Auto) Lymph # (Auto) [place] # (Auto) Eos # (Auto) Baso # (Auto) Abs Immat Gran (auto) Absolute Neuts (auto) Absolute Nucleated RBC Nucleated RBC % (auto) ESR Anion Gap Estim Creat Clear Calc Estimated GFR POC Glucose 166 H Random Glucose Lactic Acid Lactic Acid F/U @ 2Hr Calcium Total Bilirubin AST ALT Alkaline Phosphatase C-Reactive Protein Total Protein Albumin Microbiology Microbiology Results: Microbiology 03/10/24 11:49 Blood Culture - Preliminary Blood - Venous Prelim: GPC Gram Stain only 03/10/24 11:49 Blood Culture - Preliminary Blood - Venous Prelim: GPC Gram Stain only Assessment and Plan (1) Osteomyelitis: Status: Acute (2) MRSA bacteremia: Status: Acute Plan 58/m with HLD, insulin-dependent type 2 diabetes, peripheral vascular disease, hx of osteo and MRSA bacteremia completed 6 weeks of IV vanco on february 18, , and RIGOBERTO not compliant with CPAP who presents to the ED with?fever and worsening left foot infection and is admitted again with osteomylitis and MRSA bacteremia again. Acute left foot osteomyelitis MRSA bacteremia Secondary to chronic diabetic foot ulcer -continue Vanco and discuss with ID to consider Dapto -surgery consult (Iss[facility]) Acute lactic acidosis d/t sepsis, resolved. Insulin-dependent type 2 diabetes with hyperglycemia Poorly controlled, better today continue lantus and ssi, glipizide and jardiance diabetic diet metformin on hold HLD Continue statin Peripheral artery disease Continue clopidogrel Full Code DVT Prophylaxis: Lovenox need for inpt: IV Abx for bacteremia and osteomylitis and waiting for final cultues Quality Stroke Does the patient have a stroke diagnosis?: No VTE Prior VTE?: No VTE Risk Level:: Medical - moderate - high VTE Device Contraindication: Treatment Not Indicated VTE Drug Contraindication: N/A - Med Ordered
[2024-03-11 10:25] LABS: Vancomycin Random 14.2 mcg/mL (15-20)
[2024-03-11 11:01] LABS: Glucose, Whole Blood 254 mg/dL (60-115)
[2024-03-11] MEDS: vancomycin HCL 1,250 MG in 0.9 % Sodium Chloride 250 ML 166.6 MG IV (11:42)
--- NOTE | 2024-03-11 11:46 | MHC.IC ---
Blood Culture preliminary result + for MRSA. Place contact precautions pending final result.
[2024-03-11] MEDS: cefTRIAXone sodium 1 GM VIAL IVPUSH (12:06)
[2024-03-11] MEDS: Enoxaparin Sodium 40 MG/0.4 ML SYRINGE SUBCUT (13:47)
--- NOTE | 2024-03-11 14:02 | P.PNVS_ITS ---
<Statement entered by Wilbur Caceres MD - 03/11/24 16:43> I have seen and evaluated the patient and agree with history, findings, assessment and plan documented by Eva Bowen PA-c. This is a complex 58-year-old gentleman actually known to me. We had seen him several years back and on 10/11/2020 he underwent angiogram and at that time it was shown to be negative. He has recurrent nonhealing ulcers of his left foot with underlying osteomyelitis. He does see podiatry from [facility]. At the current time his vascular status does appear to be stable. He has elected to go with additional IV antibiotics in is not interested in further amputation at the current time. He is stable from our perspective and can follow up with us as an outpatient. Thank you for allowing us to assist in his care. Subjective Subjective Date of Service: 03/11/24 Interval history: Mitchel is doing fine, he is frustrated about not knowing the reasons why his foot continues to get infected despite treatment. He does continue to have pain in his left foot. He has no other concerns today. Physical Exam Vital Signs: Vital Signs: Last Vital Signs Temp 98.2 F 03/11/24 07:06 Pulse 102 H 03/11/24 07:06 Resp 18 03/11/24 07:06 BP 120/59 L 03/11/24 08:23 Pulse Ox 99 03/11/24 07:06 O2 Del Method Room Air 03/11/24 07:06 BMI result Body Mass Index 41.0 Const: General: comfortable and no acute distress Orientation/consciousness: patient oriented x3 HEENT: Ears: hearing grossly normal bilaterally Resp: Effort & Inspection: normal respiratory effort and able to speak in complete sentences Auscultation: clear to auscultation bilaterally Cardio: Rate: regular rate Rhythm: regular rhythm Heart sounds: S1 normal heart sound present and S2 normal heart sound present Bruits: no abdominal aortic bruits, no carotid bruits, no femoral bruits and no renal bruits GI: Palpation (GI): No Abdominal aortic bruit present Neuro: General: patient oriented x3 Cranial nerves: Yes CN's II-XII intact bilaterally Extrem: Other: Dressing just applied to left foot, not taken down. Progress Note: A&P Assessment and plan (1) Osteomyelitis: Status: Acute Assessment and Plan: Mitchel presented yesterday for increased pain in his foot with possible infection. He is frustrated that this has continued despite multiple IV Abx for it. He continues on IV Abx. He states his foot continues to hurt. He is followed by [facility]iat[facility], whom mentioned that, due to his Charcot foot, he may benefit from a surgery to correct this once the infection can clear. Arterial duplex was done in Dec and revealed hemodynamically significant arterial dx of the left posterior tibial artery. He did not follow up with us after that. His last diagnostic angio was in September 2020, which revealed no barriers to healing ulcers. At this point, there is no acute surgical intervention. We will follow up with him outpatient with possible endovascular intervention. Thank you for the consult. We will continue to monitor. If there are any questions or concerns, please do not hesitate to reach out. Time Spent With Patient Time: Total time managing care of this patient today __25__ minutes. Procedures Date of Service Date of Service: 03/11/24 Quality Stroke Does the patient have a stroke diagnosis?: No VTE Prior VTE?: No VTE Risk Level:: Medical - moderate - high VTE Device Contraindication: Treatment Not Indicated VTE Drug Contraindication: N/A - Med Ordered
--- NOTE | 2024-03-11 14:30 | HO.WOUND ---
Wound Consult: Initial 58yr old? Male admitted to [facility] on 03/10/24 - See progress notes and H&P for detailed history.? Wound consult placed for Left Foot wound.? Patient agreeable to assessment and photo documentation.? Left Plantar Wound Etiology: Diabetic wound Measurements: 0.3cm x 0.3cm x 1.5cm Wound Bed: unable to visualize wound bed Drainage / Odor: no odor serosang noted Edges: ? macerated and unattached Martha wound: hot / warm, red pink erythema and swelling noted Pain: denies reports neuropathy Goals of Treatment: ? Packing to allow for autolytic debridement Recommendations: 1. Provide adequate and supplemental nutrition.? 2. When applicable maintain blood glucose levels per Providers order. 3. Left Plantar Wound - Cleanse and Irrigate with NS, apply skin prep to periwound allow to dry. Lightly pack wound bed with gauze strip packing, be sure to leave wick for easy removal, cover with dry gauze, ABD and wrap. Change daily. Re-consult wound care Nurse for wound deterioration or wound changes.
--- NOTE | 2024-03-11 14:59 | PM.CNGS ---
History of Present Illness Consult details Consult date: 03/11/24 Narrative: 58-year-old male with multiple medical problems including diabetes, obstructive sleep apnea, with a chronic plantar ulcer on the left foot. He has no neuropathy as well. He was admitted because of fever up to 103. He also was bacteremic. He had a biopsy of the 4th metatarsal by a avionics repair technician in the past. The site apparently has not healed at all in several months He has had recurrent osteomyelitis on this area. He has been treated with antibiotics multiple times in the past He is admitted now for another episode of osteomyelitis with an ulcer on the plantar aspect with drainage. He denies any fever or chills otherwise Review of Systems Constitutional: Constitutional: Denies chills and Denies fever(s) Cardiovascular: Cardiovascular: Denies chest pain and Reports dyspnea on exertion Respiratory: Respiratory: Denies cough and Reports dyspnea on exertion Gastrointestinal: Gastrointestinal: Denies hematochezia and Denies change in bowel habits Genitourinary: Genitourinary: Denies hematuria and Denies difficulty urinating Musculoskeletal: Musculoskeletal: Denies back pain and Denies limited range of motion Neurologic: Denies focal weakness and Denies convulsions Psychiatric: Psychiatric: Denies depression and Denies mood swings PMFSH Past Medical History Medical History PAD (peripheral artery disease) Non-healing wound Sepsis 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 Fever Nocturnal hypoxemia Diabetes Restrictive lung disease RIGOBERTO (obstructive sleep apnea) Morbid obesity Surgical History Surgical History Hx of amputation Hx of right inguinal hernia repair Hx of eye surgery Social History Social History Household Members: Family Housing: Apartment Do you presently have visiting nurse or other home services: No Alcohol intake: current Alcohol intake frequency: holidays/special occasions only Alcohol type: hard liquor Patient Tobacco Use Status: Former Tobacco user Second Hand Smoke Exposure: No service: No Meds Allergies Allergy/AdvReac Type Severity Reaction Status Date / Time penicillin G Allergy Unknown Unknown Verified 03/10/24 11:20 Active Medications: Current Medications Acetaminophen (Acetaminophen 325 Mg Tablet) 650 mg PO Q6H PRN PRN Reason: Pain, Mild (Pain Scale 1-3), fever or headache Last Admin: 03/11/24 03:25 Dose: 650 mg Atorvastatin Calcium (Atorvastatin Calcium 20 Mg Tablet) 20 mg PO DAILY@1900 [facility] Benzonatate (Benzonatate 100 Mg Capsule) 100 mg PO TID PRN PRN Reason: Cough Calcium Carbonate (Calcium Carbonate 750 Mg Tab.Chew) 750 mg PO Q4H PRN PRN Reason: Heartburn Ceftriaxone Sodium (Ceftriaxone Sodium 1 Gm Vial) 1 gm IVPUSH Q24H [facility] Last Admin: 03/11/24 12:06 Dose: 1 gm Clopidogrel Bisulfate (Clopidogrel Bisulfate 75 Mg Tablet) 75 mg PO DAILY [facility] Last Admin: 03/11/24 08:19 Dose: 75 mg Empagliflozin (Empagliflozin 10 Mg Tablet) 10 mg PO DAILY [facility] Last Admin: 03/11/24 08:18 Dose: 10 mg Enoxaparin Sodium (Enoxaparin Sodium 40 Mg/0.4 Ml Syringe) 40 mg SUBCUT Q24H [facility] Last Admin: 03/11/24 13:47 Dose: 40 mg Glipizide (Glipizide 10 Mg Tablet) 10 mg PO BID [facility] Last Admin: 03/11/24 08:18 Dose: 10 mg Glucose (Glucose Gel 15 Gm Gel..Gram.) 15 gm PO Q15M PRN; Protocol PRN Reason: per Hypoglycemia Standing Ord. Dextrose (D10) 250 mls @ 750 mls/hr IV Q15M PRN; Protocol PRN Reason: per Hypoglycemia Standing Ord. Vancomycin HCl 1,250 mg/ (Sodium Chloride) 250 mls @ 166.667 mls/hr IV Q12H [facility] Last Infusion: 03/11/24 13:50 Dose: Infused Insulin Glargine (Insulin Glargine,Hum.Rec.Anlog 100 Unit/Ml 10 Ml Vial) 56 unit SUBCUT BEDTIME [facility] Last Admin: 03/10/24 23:17 Dose: 56 unit Insulin Glargine (Insulin Glargine,Hum.Rec.Anlog 100 Unit/Ml 10 Ml Vial) 23 unit SUBCUT DAILY [facility] Last Admin: 03/11/24 08:18 Dose: 23 unit Insulin Human Lispro (Insulin Lispro 100 Unit/Ml 3 Ml Vial) 0 unit SUBCUT QIDACHS [facility]; Protocol Last Admin: 03/11/24 11:42 Dose: 6 unit Lisinopril (Lisinopril 2.5 Mg Tablet) 2.5 mg PO DAILY [facility]; Protocol Last Admin: 03/11/24 08:23 Dose: 2.5 mg Magnesium Hydroxide (Milk Of Magnesia 30 Ml Oral.Susp) 30 ml PO DAILY PRN PRN Reason: Constipation Melatonin (Melatonin 3 Mg Tablet) 6 mg PO BEDTIME PRN PRN Reason: Insomnia Ondansetron HCl (Ondansetron Hcl 4 Mg/2 Ml Vial) 4 mg IVPUSH Q8H PRN PRN Reason: Nausea and Vomiting Oxycodone HCl (Oxycodone Hcl Immed Release 5 Mg Tablet) 5 mg PO Q4H PRN PRN Reason: Pain, Severe (Pain Scale 7-10) Last Admin: 03/10/24 17:21 Dose: 5 mg Pantoprazole Sodium (Pantoprazole Sodium 20 Mg Tablet.) 40 mg PO BID@0630,1630 [facility] Last Admin: 03/11/24 05:53 Dose: 40 mg Pharmacy Consult (Consult Rx Vancomycin Dosing) 1 each MISCELLANE DAILY PRN PRN Reason: Consult order Sodium Chloride (0.9 % Sodium Chloride Flush 3 Ml Syringe) 3 ml IVFLUSH QSHIFT [facility] Last Admin: 03/11/24 08:20 Dose: 3 ml Home Medications ?Medication ?Instructions ?Recorded ?Confirmed ?Last Taken ?Type blood sugar diagnostic (Charleeyle 10/07/20 10/24/23 1 Day Ago History Test strips) ~10/06/20 clopidogrel 75 mg tablet 1 tab PO DAILY 10/07/20 03/10/24 03/09/24 History simvastatin 40 mg tablet 40 mg PO DAILY@1900 10/07/20 03/10/24 03/08/24 History semaglutide 0.25 mg or 0.5 mg (2 2 mg subcut SA 11/22/22 03/10/24 03/06/24 History mg/3 mL) subcutaneous pen injector (Ozempic) glipizide 10 mg tablet 10 mg PO BID 10/02/23 03/10/24 03/09/24 History metformin 1,000 mg tablet 1,000 mg PO BID 10/02/23 03/10/24 03/09/24 History empagliflozin 10 mg tablet 10 mg PO DAILY 01/08/24 03/10/24 03/09/24 History (Jardiance) lisinopril 2.5 mg tablet 2.5 mg PO DAILY 02/09/24 03/10/24 03/09/24 History omeprazole 20 mg capsule,delayed 20 mg PO BID@0630,1630 03/10/24 03/10/24 03/09/24 History release Physical Exam Vital Signs: Vital Signs: Last Vital Signs Temp 98.2 F 03/11/24 07:06 Pulse 102 H 03/11/24 07:06 Resp 18 03/11/24 07:06 BP 120/59 L 03/11/24 08:23 Pulse Ox 99 03/11/24 07:06 O2 Del Method Room Air 03/11/24 07:06 BMI result Body Mass Index 41.0 Const: Other: Morbidly obese, appears comfortable General: comfortable and no acute distress Orientation/consciousness: patient oriented x3 Neck: Neck: Yes no lymphadenopathy Resp: Auscultation: clear to auscultation bilaterally Cardio: Rhythm: regular rhythm GI: Palpation (GI): Soft to palpation, nontender and no guarding Neuro: General: patient oriented x3 Extrem: Other: Chronic edema of the left foot, with a plantar ulcer about 1.5 cm in diameter, scanty drainage Results Labs 03/11/24 05:48 03/15/24 05:09 Labs: Abnormal lab results 03/10/24 03/10/24 03/11/24 Range/Units 17:09 19:51 05:48 WBC 11.9 H (4.8-10.8) X10*3/uL RBC 3.82 L (4.60-5.80) X10*6/uL Hgb 11.4 L (14.0-18.0) g/dl Hct 33.2 L (42.0-52.0) % Sodium 133 L (135-145) mmol/L POC Glucose 297 H 328 H (60-115) mg/dL Random Glucose 199 H (60-115) mg/dL Random Vancomycin (15-20) mcg/mL 03/11/24 03/11/24 03/11/24 Range/Units 07:08 10:03 10:57 WBC (4.8-10.8) X10*3/uL RBC (4.60-5.80) X10*6/uL Hgb (14.0-18.0) g/dl Hct (42.0-52.0) % Sodium (135-145) mmol/L POC Glucose 166 H 254 H (60-115) mg/dL Random Glucose (60-115) mg/dL Random Vancomycin 14.2 L (15-20) mcg/mL Short CBC 03/11/24 Range/Units 05:48 WBC 11.9 H (4.8-10.8) X10*3/uL Hgb 11.4 L (14.0-18.0) g/dl Hct 33.2 L (42.0-52.0) % Plt Count 180 (160-400) X10*3/uL BMP 03/11/24 05:48 Sodium 133 L Potassium 3.6 Chloride 101 Carbon Dioxide 23 BUN 16 Creatinine 1.09 Calcium 9.0 D All other labs normal. Imaging Additional studies: Laboratory Results WBC 11.9 X10*3/uL (4.8-10.8) H 03/11/24 05:48 RBC 3.82 X10*6/uL (4.60-5.80) L 03/11/24 05:48 Hgb 11.4 g/dl (14.0-18.0) L 03/11/24 05:48 Hct 33.2 % (42.0-52.0) L 03/11/24 05:48 MCV 86.9 fL (80.0-98.0) 03/11/24 05:48 MCH 29.8 pg (27.0-33.0) 03/11/24 05:48 MCHC 34.3 g/dl (31.0-36.0) 03/11/24 05:48 RDW 13.4 % (11.0-16.0) 03/11/24 05:48 Plt Count 180 X10*3/uL (160-400) 03/11/24 05:48 MPV 10.3 fL (9.4-12.4) 03/11/24 05:48 Immature Gran % (Auto) 0.6 % (0.0-0.4) H 03/10/24 11:49 Neut % (Auto) 82.1 % (45-73) H 03/10/24 11:49 Lymph % (Auto) 8.3 % (20-40) L 03/10/24 11:49 [place] % (Auto) 7.5 % (2-11) 03/10/24 11:49 Eos % (Auto) 1.0 % (0-4) 03/10/24 11:49 Baso % (Auto) 0.5 % (0-2) 03/10/24 11:49 Lymph # (Auto) 1.3 X10*3/uL (1.2-4.9) 03/10/24 11:49 [place] # (Auto) 1.2 X10*3/uL (0.1-1.2) 03/10/24 11:49 Eos # (Auto) 0.2 X10*3/uL (0.0-0.4) 03/10/24 11:49 Baso # (Auto) 0.1 X10*3/uL (0.0-0.2) 03/10/24 11:49 Abs Immat Gran (auto) 0.10 X10*3/uL (0.00-0.03) H 03/10/24 11:49 Absolute Neuts (auto) 12.7 x10*3/uL (2.0-8.3) H 03/10/24 11:49 Absolute Nucleated RBC 0.000 X10*3/uL (0.0-0.012) 03/11/24 05:48 Nucleated RBC % (auto) 0.0 /100WBC (0.0-0.2) 03/11/24 05:48 ESR 88 MM/HR (0-15) H 03/10/24 11:49 Sodium 133 mmol/L (135-145) L 03/11/24 05:48 Potassium 3.6 mmol/L (3.3-5.1) 03/11/24 05:48 Chloride 101 mmol/L (96-108) 03/11/24 05:48 Carbon Dioxide 23 mmol/L (22-29) 03/11/24 05:48 Anion Gap 13 (12-20) 03/11/24 05:48 BUN 16 mg/dL (9-16) 03/11/24 05:48 Creatinine 1.09 mg/dL (0.5-1.4) 03/11/24 05:48 Estim Creat Clear Calc 107.1 03/11/24 05:48 Estimated GFR > 60 03/11/24 05:48 POC Glucose 254 mg/dL (60-115) H 03/11/24 10:57 Random Glucose 199 mg/dL (60-115) H 03/11/24 05:48 Lactic Acid 2.2 mmol/L (0.5-2.0) H* 03/10/24 11:49 Lactic Acid F/U @ 2Hr 1.9 mmol/L (0.5-2.0) 03/10/24 14:34 Calcium 9.0 mg/dL (8.4-10.2) D 03/11/24 05:48 Total Bilirubin 1.9 mg/dL (0.0-1.0) H 03/10/24 11:49 AST 25 U/L (5-37) 03/10/24 11:49 ALT 14 U/L (0-40) 03/10/24 11:49 Alkaline Phosphatase 104 U/L (39-117) 03/10/24 11:49 C-Reactive Protein 35.55 mg/dL (< or = 0.50) H 03/10/24 11:49 Total Protein 8.9 g/dL (6.5-8.0) H 03/10/24 11:49 Albumin 4.0 g/dL (3.5-5.0) 03/10/24 11:49 Random Vancomycin 14.2 mcg/mL (15-20) L 03/11/24 10:03 Impressions Foot X-Ray 03/10/24 11:20 IMPRESSION: Concerning cellulitis/ osteomyelitis at the proximal fourth and fifth metatarsals and lateral aspect of the left foot. Electronically signed by: Rafael Dias MD 03/10/2024 12:29 PM EST RP Venous Duplex 03/10/24 11:49 IMPRESSION: No evidence of deep venous thrombosis involving the left lower extremity. Electronically signed by: Mitchel Carrizales MD 03/10/2024 12:20 PM EST RP Assessment and Plan (1) Osteomyelitis: Qualifiers: Laterality: left Osteomyelitis location: foot Osteomyelitis type: other acute Qualified Code(s): M86.172 - Other acute osteomyelitis, left ankle and foot Status: Acute He has a persistent plantar ulcer on the left foot along with suggestion of osteomyelitis in the 4th and the 3rd proximal metatarsals. He had a previous biopsy of this metatarsal in the past He has had this treated with antibiotics 3 times with a PICC line. He had been evaluated by vascular surgery and there is no intervention planned I did explain to him the option of BKA in view of this recurrent and persistent plantar ulcer with osteomyelitis of the metatarsals proximally but he does not want this option. He says he wants to proceed with another round of long-term IV antibiotics. He does not appear septic at this time. I emphasized to him that good blood sugar control is important for control of his chronic infection as well. Procedures Date of Service Date of Service: 03/23/24
[2024-03-11 15:10] VITALS: BP 123/63; PULSE 83; RESP 16; TEMP 36.7; O2SAT 97
[2024-03-11 16:16] LABS: Glucose, Whole Blood 164 mg/dL (60-115)
[2024-03-11] MEDS: Atorvastatin Calcium 20 MG TABLET PO (18:37)
[2024-03-11 19:15] VITALS: BP 126/62; PULSE 84; RESP 18; TEMP 37.1; O2SAT 94
[2024-03-11 20:18] LABS: Glucose, Whole Blood 146 mg/dL (60-115)
[2024-03-11] MEDS: oxyCODONE HCl Immed Release 5 MG TABLET PO (21:15)
[2024-03-11] MEDS: Insulin Glargine,Hum.rec.anlog 100 UNIT/ML 10 ML VIAL 56 UNIT SUBCUT (21:16)
[2024-03-11] MEDS: vancomycin HCL 1,250 MG in 0.9 % Sodium Chloride 250 ML 166.67 MG IV (22:06)
[2024-03-12 03:46] VITALS: BP 129/64; PULSE 84; RESP 18; TEMP 36.9; O2SAT 98
[2024-03-12] MEDS: Pantoprazole Sodium 20 MG TABLET.DR 40 MG PO ×2 (06:28→17:11)
[2024-03-12 07:07] VITALS: BP 150/77; PULSE 102; RESP 18; TEMP 36.6; O2SAT 98
[2024-03-12 07:29] LABS: Glucose, Whole Blood 144 mg/dL (60-115)
--- NOTE | 2024-03-12 08:20 | P.PNIM_ITS ---
Subjective Subjective Date of Service: 03/12/24 Interval History: Follow-up on MRSA bacteremia, and osteomyelitis of the foot The patient has previously completed 12 weeks of IV antibioitics ending end january Physical Exam 2 Vital Signs: Vital Signs: Last Vital Signs Temp 97.9 F 03/12/24 07:07 Pulse 102 H 03/12/24 07:07 Resp 18 03/12/24 07:07 BP 150/77 H 03/12/24 07:07 Pulse Ox 98 03/12/24 07:07 O2 Del Method Room Air 03/12/24 07:07 BMI result Body Mass Index 41.0 Const: Other: General: AO X 3, no acute distress Resp: CTA bilateral CVS: S1,S2,RRR GI: +BS, NT, no distention Skin: No rash MSK: wound dressing in place Neuro: motor grossly intact Psych: appropriate affect Objective Data Active Medications Acetaminophen (Acetaminophen 325 Mg Tablet) 650 mg PO Q6H PRN PRN Reason: Pain, Mild (Pain Scale 1-3), fever or headache Last Admin: 03/11/24 03:25 Dose: 650 mg Documented By: TRENT Atorvastatin Calcium (Atorvastatin Calcium 20 Mg Tablet) 20 mg PO DAILY@1900 [facility] Last Admin: 03/11/24 18:37 Dose: 20 mg Documented By: DEVON Benzonatate (Benzonatate 100 Mg Capsule) 100 mg PO TID PRN PRN Reason: Cough Calcium Carbonate (Calcium Carbonate 750 Mg Tab.Chew) 750 mg PO Q4H PRN PRN Reason: Heartburn Ceftriaxone Sodium (Ceftriaxone Sodium 1 Gm Vial) 1 gm IVPUSH Q24H [facility] Last Admin: 03/11/24 12:06 Dose: 1 gm Documented By: DEVON Clopidogrel Bisulfate (Clopidogrel Bisulfate 75 Mg Tablet) 75 mg PO DAILY [facility] Last Admin: 03/11/24 08:19 Dose: 75 mg Documented By: DEVON Empagliflozin (Empagliflozin 10 Mg Tablet) 10 mg PO DAILY [facility] Last Admin: 03/11/24 08:18 Dose: 10 mg Documented By: DEVON Enoxaparin Sodium (Enoxaparin Sodium 40 Mg/0.4 Ml Syringe) 40 mg SUBCUT Q24H [facility] Last Admin: 03/11/24 13:47 Dose: 40 mg Documented By: DEVON Glipizide (Glipizide 10 Mg Tablet) 10 mg PO BID [facility] Last Admin: 03/11/24 21:16 Dose: 10 mg Documented By: BETTY Glucose (Glucose Gel 15 Gm Gel..Gram.) 15 gm PO Q15M PRN; Protocol PRN Reason: per Hypoglycemia Standing Ord. Dextrose (D10) 250 mls @ 750 mls/hr IV Q15M PRN; Protocol PRN Reason: per Hypoglycemia Standing Ord. Vancomycin HCl 1,250 mg/ (Sodium Chloride) 250 mls @ 166.667 mls/hr IV Q12H [facility] Insulin Glargine (Insulin Glargine,Hum.Rec.Anlog 100 Unit/Ml 10 Ml Vial) 56 unit SUBCUT BEDTIME [facility] Last Admin: 03/11/24 21:16 Dose: 56 unit Documented By: BETTY Insulin Glargine (Insulin Glargine,Hum.Rec.Anlog 100 Unit/Ml 10 Ml Vial) 23 unit SUBCUT DAILY [facility] Last Admin: 03/11/24 08:18 Dose: 23 unit Documented By: DEVON Insulin Human Lispro (Insulin Lispro 100 Unit/Ml 3 Ml Vial) 0 unit SUBCUT QIDACHS [facility]; Protocol Last Admin: 03/12/24 07:46 Dose: Not Given Documented By: DEVON Non-Admin Reason: No Insulin Coverage Lisinopril (Lisinopril 2.5 Mg Tablet) 2.5 mg PO DAILY [facility]; Protocol Last Admin: 03/11/24 08:23 Dose: 2.5 mg Documented By: DEVON Magnesium Hydroxide (Milk Of Magnesia 30 Ml Oral.Susp) 30 ml PO DAILY PRN PRN Reason: Constipation Melatonin (Melatonin 3 Mg Tablet) 6 mg PO BEDTIME PRN PRN Reason: Insomnia Ondansetron HCl (Ondansetron Hcl 4 Mg/2 Ml Vial) 4 mg IVPUSH Q8H PRN PRN Reason: Nausea and Vomiting Oxycodone HCl (Oxycodone Hcl Immed Release 5 Mg Tablet) 5 mg PO Q4H PRN PRN Reason: Pain, Severe (Pain Scale 7-10) Last Admin: 03/11/24 21:15 Dose: 5 mg Documented By: BETTY Pantoprazole Sodium (Pantoprazole Sodium 20 Mg Tablet.) 40 mg PO BID@0630,1630 [facility] Last Admin: 03/12/24 06:28 Dose: 40 mg Documented By: BETTY Pharmacy Consult (Consult Rx Vancomycin Dosing) 1 each MISCELLANE DAILY PRN PRN Reason: Consult order Sodium Chloride (0.9 % Sodium Chloride Flush 3 Ml Syringe) 3 ml IVFLUSH QSHIFT [facility] Last Admin: 03/11/24 22:00 Dose: 3 ml Documented By: BETTY Labs 03/11/24 05:48 03/12/24 08:11 Labs: Laboratory Results - last 24 hr 03/11/24 03/11/24 03/11/24 10:03 10:57 16:12 POC Glucose 254 H 164 H Random Vancomycin 14.2 L 03/11/24 03/12/24 20:11 07:13 POC Glucose 146 H 144 H Random Vancomycin Microbiology Microbiology Results: Microbiology 03/10/24 11:49 Blood Culture - Preliminary Blood - Venous Prelim: GPC Gram Stain only 03/10/24 11:49 Blood Culture - Preliminary Blood - Venous Prelim: GPC Gram Stain only Assessment and Plan (1) Osteomyelitis: Status: Acute (2) MRSA bacteremia: Status: Acute Plan 58/m with HLD, insulin-dependent type 2 diabetes, peripheral vascular disease, hx of osteo and MRSA bacteremia completed 6 weeks of IV vanco on february 18, , and RIGOBERTO not compliant with CPAP who presents to the ED with?fever and worsening left foot infection and is admitted again with osteomylitis and MRSA bacteremia again. Acute left foot osteomyelitis, recurrne recurrent MRSA bacteremia Secondary to chronic diabetic foot ulcer -continue Vanco and discuss with ID to consider Dapto -surgery consult (Issac) recommend possible ampuation but he doesn't want ampuation done in the hospital and will follow up with his plastics fabricator or welder -repeat blood cultures today Acute lactic acidosis d/t sepsis, resolved. Insulin-dependent type 2 diabetes with hyperglycemia Poorly controlled, better today continue lantus and ssi, glipizide and jardiance diabetic diet metformin on hold HLD Continue statin Peripheral artery disease Continue clopidogrel Full Code DVT Prophylaxis: Lovenox need for inpt: IV Abx for bacteremia and osteomylitis and waiting for final cultues Quality Stroke Does the patient have a stroke diagnosis?: No VTE Prior VTE?: No VTE Risk Level:: Medical - moderate - high VTE Device Contraindication: Treatment Not Indicated VTE Drug Contraindication: N/A - Med Ordered
--- NOTE | 2024-03-12 08:29 | HO.VASCPN ---
Subjective Subjective Date of Service: 03/12/24 Interval history: Mitchel is doing well this morning. He is sleeping well, and getting out of bed. He is eating and drinking well. He continues to endorse pain in the left foot. Physical Exam Vital Signs: Vital Signs: Last Vital Signs Temp 97.9 F 03/12/24 07:07 Pulse 102 H 03/12/24 07:07 Resp 18 03/12/24 07:07 BP 150/77 H 03/12/24 07:07 Pulse Ox 98 03/12/24 07:07 O2 Del Method Room Air 03/12/24 07:07 BMI result Body Mass Index 41.0 Const: General: comfortable and no acute distress Orientation/consciousness: patient oriented x3 HEENT: Ears: hearing grossly normal bilaterally Resp: Effort & Inspection: normal respiratory effort and able to speak in complete sentences Auscultation: clear to auscultation bilaterally Cardio: Rate: regular rate Rhythm: regular rhythm Heart sounds: S1 normal heart sound present and S2 normal heart sound present Bruits: no abdominal aortic bruits, no carotid bruits, no femoral bruits and no renal bruits GI: Palpation (GI): No Abdominal aortic bruit present Neuro: General: patient oriented x3 Cranial nerves: Yes CN's II-XII intact bilaterally Extrem: Other: Left foot wrapped, not taken down this morning. Progress Note: A&P Assessment and plan (1) Cellulitis of left foot: Status: Acute Assessment and Plan: Mitchel remains stable from a vascular standpoint. We will follow him outpatient for further evaluation and treatment. We will continue to monitor. If there are any questions or concerns, please do not hesitate to reach out. Time Spent With Patient Time: Total time managing care of this patient today __20__ minutes. Procedures Date of Service Date of Service: 03/12/24 Quality Stroke Does the patient have a stroke diagnosis?: No VTE Prior VTE?: No VTE Risk Level:: Medical - moderate - high VTE Device Contraindication: Treatment Not Indicated VTE Drug Contraindication: N/A - Med Ordered
[2024-03-12 08:42] LABS: Creatinine Clr Calc Pharmacy 99.8; Estimated Glomerular Filt Rate > 60; Vancomycin Random 20.3 mcg/mL (15-20)
[2024-03-12] MEDS: Insulin Glargine,Hum.rec.anlog 100 UNIT/ML 10 ML VIAL 23 UNIT SUBCUT (08:51)
[2024-03-12] MEDS: Clopidogrel Bisulfate 75 MG TABLET PO (08:52)
[2024-03-12 08:53] VITALS: BP 121/71
[2024-03-12] MEDS: lisinopriL 2.5 MG TABLET PO (08:53)
[2024-03-12] MEDS: 0.9 % Sodium Chloride Flush 3 ML SYRINGE IVFLUSH ×3 (08:53→20:20)
[2024-03-12] MEDS: Empagliflozin 10 MG TABLET PO (08:53)
[2024-03-12] MEDS: glipiZIDE 10 MG TABLET PO ×2 (08:54→20:16)
[2024-03-12] MEDS: vancomycin HCL 1,000 MG in 0.9 % Sodium Chloride 250 ML 270 MG IV (09:04)
[2024-03-12 11:04] LABS: Glucose, Whole Blood 223 mg/dL (60-115)
[2024-03-12] MEDS: cefTRIAXone sodium 1 GM VIAL IVPUSH (12:15)
[2024-03-12] MEDS: Insulin Lispro 100 UNIT/ML 3 ML VIAL SUBCUT ×2 (12:15→20:17)
--- NOTE | 2024-03-12 12:22 | MHC.CM.PN ---
EMR REVIEWED AND PER MD ROUNDS, PT WILL NEED 6 WKS IV ABT RX. DAUGHTER/PT MANAGE IV AT HOME, WILL REFER TO [facility] ([facility] WAS USED PREVIOUSLY BUT NO LONGER IN BUSINESS) PICC LINE TO BE PLACED WHEN CULTURES CLEARED. CM WILL CONTINUE TO FOLLOW FOR ANY CHANGE TO DC PLAN/NEEDS.
--- NOTE | 2024-03-12 12:24 | PC.NURSE ---
Patient upset and anxious this am about Vanco trough not being drawn on time,phlebotomy was contacted twice by police department secretary,strap stitcher Cristiana was able to obtain specimen,Vanco dose was administered within time parameters,patient reassured.
[2024-03-12] MEDS: Enoxaparin Sodium 40 MG/0.4 ML SYRINGE SUBCUT (14:13)
[2024-03-12 15:34] VITALS: BP 128/69; PULSE 81; RESP 18; TEMP 36.8; O2SAT 96
[2024-03-12 16:23] LABS: Glucose, Whole Blood 135 mg/dL (60-115)
[2024-03-12] MEDS: DAPTOmycin 1,000 MG in 0.9 % Sodium Chloride 50 ML 140 MG IV (18:50)
[2024-03-12 19:55] VITALS: BP 128/66; PULSE 89; RESP 17; TEMP 37; O2SAT 93
[2024-03-12 20:03] LABS: Glucose, Whole Blood 188 mg/dL (60-115)
[2024-03-12] MEDS: Atorvastatin Calcium 20 MG TABLET PO (20:16)
[2024-03-12] MEDS: Insulin Glargine,Hum.rec.anlog 100 UNIT/ML 10 ML VIAL 56 UNIT SUBCUT (20:16)
[2024-03-13 03:19] VITALS: BP 141/76; PULSE 92; RESP 17; TEMP 36.7; O2SAT 94
[2024-03-13] MEDS: Acetaminophen 325 MG TABLET 650 MG PO (03:49)
[2024-03-13] MEDS: Pantoprazole Sodium 20 MG TABLET.DR 40 MG PO ×2 (06:18→18:23)
[2024-03-13 07:33] LABS: Creatinine Clr Calc Pharmacy 94.2; Estimated Glomerular Filt Rate > 60
[2024-03-13 07:48] VITALS: BP 134/73; PULSE 81; RESP 18; TEMP 36.3; O2SAT 96
[2024-03-13 07:58] LABS: Glucose, Whole Blood 183 mg/dL (60-115)
[2024-03-13] MEDS: lisinopriL 2.5 MG TABLET PO (08:53)
[2024-03-13] MEDS: glipiZIDE 10 MG TABLET PO ×2 (08:53→21:20)
[2024-03-13] MEDS: Clopidogrel Bisulfate 75 MG TABLET PO (08:53)
[2024-03-13] MEDS: Empagliflozin 10 MG TABLET PO (08:53)
[2024-03-13] MEDS: Insulin Lispro 100 UNIT/ML 3 ML VIAL SUBCUT ×3 (08:54→21:20)
[2024-03-13] MEDS: 0.9 % Sodium Chloride Flush 3 ML SYRINGE IVFLUSH ×2 (08:56→18:24)
[2024-03-13] MEDS: Insulin Glargine,Hum.rec.anlog 100 UNIT/ML 10 ML VIAL 23 UNIT SUBCUT (08:56)
--- NOTE | 2024-03-13 09:28 | P.PNIM_ITS ---
Subjective Subjective Date of Service: 03/13/24 Interval History: Follow-up on MRSA bacteremia, and osteomyelitis of the foot The patient has previously completed 12 weeks of IV antibioitics ending end january doing ok with no sings or symptoms of sepsis Physical Exam 2 Vital Signs: Vital Signs: Last Vital Signs Temp 97.4 F 03/13/24 07:48 Pulse 81 03/13/24 07:48 Resp 18 03/13/24 07:48 BP 134/73 03/13/24 07:48 Pulse Ox 96 03/13/24 07:48 O2 Del Method Room Air 03/13/24 07:48 BMI result Body Mass Index 41.0 Const: Other: General: AO X 3, no acute distress Resp: CTA bilateral CVS: S1,S2,RRR GI: +BS, NT, no distention Skin: No rash MSK: wound dressing in place Neuro: motor grossly intact Psych: appropriate affect Objective Data Active Medications Acetaminophen (Acetaminophen 325 Mg Tablet) 650 mg PO Q6H PRN PRN Reason: Pain, Mild (Pain Scale 1-3), fever or headache Last Admin: 03/13/24 03:49 Dose: 650 mg Documented By: ANDRZEJ Atorvastatin Calcium (Atorvastatin Calcium 20 Mg Tablet) 20 mg PO DAILY@1900 [facility] Last Admin: 03/12/24 20:16 Dose: 20 mg Documented By: ANDRZEJ Benzonatate (Benzonatate 100 Mg Capsule) 100 mg PO TID PRN PRN Reason: Cough Calcium Carbonate (Calcium Carbonate 750 Mg Tab.Chew) 750 mg PO Q4H PRN PRN Reason: Heartburn Clopidogrel Bisulfate (Clopidogrel Bisulfate 75 Mg Tablet) 75 mg PO DAILY [facility] Last Admin: 03/13/24 08:53 Dose: 75 mg Documented By: PERLA Empagliflozin (Empagliflozin 10 Mg Tablet) 10 mg PO DAILY [facility] Last Admin: 03/13/24 08:53 Dose: 10 mg Documented By: PERLA Enoxaparin Sodium (Enoxaparin Sodium 40 Mg/0.4 Ml Syringe) 40 mg SUBCUT Q24H [facility] Last Admin: 03/12/24 14:13 Dose: 40 mg Documented By: DEVON Glipizide (Glipizide 10 Mg Tablet) 10 mg PO BID [facility] Last Admin: 03/13/24 08:53 Dose: 10 mg Documented By: PERLA Glucose (Glucose Gel 15 Gm Gel..Gram.) 15 gm PO Q15M PRN; Protocol PRN Reason: per Hypoglycemia Standing Ord. Dextrose (D10) 250 mls @ 750 mls/hr IV Q15M PRN; Protocol PRN Reason: per Hypoglycemia Standing Ord. Daptomycin 1,000 mg/ Sodium (Chloride) 70 mls @ 140 mls/hr IV Q24H [facility] Last Infusion: 03/12/24 19:50 Dose: Infused Documented By: ANDRZEJ Insulin Glargine (Insulin Glargine,Hum.Rec.Anlog 100 Unit/Ml 10 Ml Vial) 56 unit SUBCUT BEDTIME [facility] Last Admin: 03/12/24 20:16 Dose: 56 unit Documented By: ANDRZEJ Insulin Glargine (Insulin Glargine,Hum.Rec.Anlog 100 Unit/Ml 10 Ml Vial) 23 unit SUBCUT DAILY [facility] Last Admin: 03/13/24 08:56 Dose: 23 unit Documented By: PERLA Insulin Human Lispro (Insulin Lispro 100 Unit/Ml 3 Ml Vial) 0 unit SUBCUT QIDACHS [facility]; Protocol Last Admin: 03/13/24 08:54 Dose: 2 unit Documented By: PERLA Lisinopril (Lisinopril 2.5 Mg Tablet) 2.5 mg PO DAILY [facility]; Protocol Last Admin: 03/13/24 08:53 Dose: 2.5 mg Documented By: PERLA Magnesium Hydroxide (Milk Of Magnesia 30 Ml Oral.Susp) 30 ml PO DAILY PRN PRN Reason: Constipation Melatonin (Melatonin 3 Mg Tablet) 6 mg PO BEDTIME PRN PRN Reason: Insomnia Ondansetron HCl (Ondansetron Hcl 4 Mg/2 Ml Vial) 4 mg IVPUSH Q8H PRN PRN Reason: Nausea and Vomiting Oxycodone HCl (Oxycodone Hcl Immed Release 5 Mg Tablet) 5 mg PO Q4H PRN PRN Reason: Pain, Severe (Pain Scale 7-10) Last Admin: 03/11/24 21:15 Dose: 5 mg Documented By: BETTY Pantoprazole Sodium (Pantoprazole Sodium 20 Mg Tablet.) 40 mg PO BID@0630,1630 [facility] Last Admin: 03/13/24 06:18 Dose: 40 mg Documented By: ANDRZEJ Pharmacy Consult (Consult Rx Vancomycin Dosing) 1 each MISCELLANE DAILY PRN PRN Reason: Consult order Sodium Chloride (0.9 % Sodium Chloride Flush 3 Ml Syringe) 3 ml IVFLUSH QSHIFT [facility] Last Admin: 03/13/24 08:56 Dose: 3 ml Documented By: PERLA Labs 03/11/24 05:48 03/13/24 06:01 Labs: Laboratory Results - last 24 hr 03/12/24 03/12/24 03/12/24 11:00 16:18 19:40 Hold Purple Top Estim Creat Clear Calc Estimated GFR POC Glucose 223 H 135 H 188 H 03/13/24 03/13/24 06:01 07:33 Hold Purple Top SEE NOTE Estim Creat Clear Calc 94.2 Estimated GFR > 60 POC Glucose 183 H Microbiology Microbiology Results: Microbiology 03/10/24 11:49 Blood Culture - Final Blood - Venous Methicillin Res Staph Aureus 03/10/24 11:49 Blood Culture - Final Blood - Venous Methicillin Res Staph Aureus Assessment and Plan (1) Osteomyelitis: Status: Acute (2) MRSA bacteremia: Status: Acute Plan 58/m with HLD, insulin-dependent type 2 diabetes, peripheral vascular disease, hx of osteo and MRSA bacteremia completed 6 weeks of IV vanco on february 18, , and RIGOBERTO not compliant with CPAP who presents to the ED with?fever and worsening left foot infection and is admitted again with osteomylitis and MRSA bacteremia again. Acute left foot osteomyelitis, Secondary to chronic diabetic foot ulcerrecurrent recurrent MRSA bacteremia previously treated with vanco -vanco changed to Daptomycin on 03/12, follow cpk weekly -repeat culture 03/12 pending -surgery consult (Issac) recommend possible ampuation but he doesn't want ampuation done in the hospital and will follow up with his road train driver. I spoke to his road train driver who agrees that he need amputation but stated that the patient has resisted ampuation only opting for removal of the involved bone. Acute lactic acidosis d/t sepsis, resolved. Insulin-dependent type 2 diabetes with hyperglycemia Poorly controlled, better today continue lantus and ssi, glipizide and jardiance diabetic diet metformin on hold HLD Continue statin Peripheral artery disease Continue clopidogrel Full Code DVT Prophylaxis: Lovenox need for inpt: IV Abx for bacteremia and osteomylitis and waiting for final cultues Quality Stroke Does the patient have a stroke diagnosis?: No VTE Prior VTE?: No VTE Risk Level:: Medical - moderate - high VTE Device Contraindication: Treatment Not Indicated VTE Drug Contraindication: N/A - Med Ordered
[2024-03-13 11:39] LABS: Glucose, Whole Blood 190 mg/dL (60-115)
[2024-03-13] MEDS: Enoxaparin Sodium 40 MG/0.4 ML SYRINGE SUBCUT (13:55)
--- NOTE | 2024-03-13 16:00 | PC.NURSE ---
Pt requested primary RN to see patient after speaking with myself and clin sup. Primary RN notified to see patient per his request.
[2024-03-13 16:22] VITALS: BP 133/79; PULSE 93; RESP 18; TEMP 37.4; O2SAT 98
[2024-03-13 16:24] LABS: Glucose, Whole Blood 125 mg/dL (60-115)
[2024-03-13] MEDS: Atorvastatin Calcium 20 MG TABLET PO (18:23)
[2024-03-13] MEDS: DAPTOmycin 1,000 MG in 0.9 % Sodium Chloride 50 ML 140 MG IV (18:24)
[2024-03-13 20:00] VITALS: BP 113/61; PULSE 82; RESP 18; TEMP 36.8; O2SAT 97
[2024-03-13 20:03] LABS: Glucose, Whole Blood 160 mg/dL (60-115)
[2024-03-13] MEDS: Insulin Glargine,Hum.rec.anlog 100 UNIT/ML 10 ML VIAL 56 UNIT SUBCUT (21:20)
[2024-03-13] MEDS: oxyCODONE HCl Immed Release 5 MG TABLET PO (21:30)
--- NOTE | 2024-03-14 00:21 | W.PM.IDCN ---
History of Present Illness Data of Consult Service Date: 03/13/24 Requesting physician: Abimael Lambert Primary Care Provider: Shreyas Da Silva MD HPI Reason for consult: MRSA bacteremia, left foot chronic nonhealing wound He presents from Podiatrists office with worsening left foot wound when seen in office. He has had chronic MRSA wound in foot since at least October. He has had multiple po and IV antibiotics and area has acutely worsened. He is angry and says it is all the doctors' fault and he is going to do something about it Specifically he finished six weeks IV Vancomycin which I told him wasnt going to be curative but hoping for healing over of wound at least for now. He had prior left 5th amp and has seen Podiatry and Vascular in past. He had foot stable at my prior visit and switched to po Bactrim 02/15 which I did call in to his pharmacy which he claims didnt get the message and it was all because no one could get a hold of me and I dont return Dr Lambert's calls. I told him I called in script and then sent it in again when he says he didnt get it and I do talk to Dr Lambert when he asks a question. When I looked at his foot today in detail he says I dont know how to put his boot on correctly and kicked his left foot out at me. Review of Systems Review of Systems: Yes all other systems are reviewed and are negative [facility] Past Medical History Medical History PAD (peripheral artery disease) Non-healing wound Sepsis 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 Fever Nocturnal hypoxemia Diabetes Restrictive lung disease RIGOBERTO (obstructive sleep apnea) Morbid obesity Family History Family history: reviewed and not pertinent Surgical History Surgical History Hx of amputation Hx of right inguinal hernia repair Hx of eye surgery Social History Social History Household Members: Family Housing: Apartment Do you presently have visiting nurse or other home services: No Alcohol intake: current Alcohol intake frequency: holidays/special occasions only Alcohol type: hard liquor Patient Tobacco Use Status: Former Tobacco user Second Hand Smoke Exposure: No service: No Meds Allergies Allergy/AdvReac Type Severity Reaction Status Date / Time penicillin G Allergy Unknown Unknown Verified 03/10/24 11:20 Active Medications: Current Medications Acetaminophen (Acetaminophen 325 Mg Tablet) 650 mg PO Q6H PRN PRN Reason: Pain, Mild (Pain Scale 1-3), fever or headache Last Admin: 03/13/24 03:49 Dose: 650 mg Atorvastatin Calcium (Atorvastatin Calcium 20 Mg Tablet) 20 mg PO DAILY@1900 [facility] Last Admin: 03/13/24 18:23 Dose: 20 mg Benzonatate (Benzonatate 100 Mg Capsule) 100 mg PO TID PRN PRN Reason: Cough Calcium Carbonate (Calcium Carbonate 750 Mg Tab.Chew) 750 mg PO Q4H PRN PRN Reason: Heartburn Clopidogrel Bisulfate (Clopidogrel Bisulfate 75 Mg Tablet) 75 mg PO DAILY [facility] Last Admin: 03/13/24 08:53 Dose: 75 mg Empagliflozin (Empagliflozin 10 Mg Tablet) 10 mg PO DAILY [facility] Last Admin: 03/13/24 08:53 Dose: 10 mg Enoxaparin Sodium (Enoxaparin Sodium 40 Mg/0.4 Ml Syringe) 40 mg SUBCUT Q24H [facility] Last Admin: 03/13/24 13:55 Dose: 40 mg Glipizide (Glipizide 10 Mg Tablet) 10 mg PO BID [facility] Last Admin: 03/13/24 21:20 Dose: 10 mg Glucose (Glucose Gel 15 Gm Gel..Gram.) 15 gm PO Q15M PRN; Protocol PRN Reason: per Hypoglycemia Standing Ord. Dextrose (D10) 250 mls @ 750 mls/hr IV Q15M PRN; Protocol PRN Reason: per Hypoglycemia Standing Ord. Daptomycin 1,000 mg/ Sodium (Chloride) 70 mls @ 140 mls/hr IV Q24H [facility] Last Infusion: 03/13/24 19:05 Dose: Infused Insulin Glargine (Insulin Glargine,Hum.Rec.Anlog 100 Unit/Ml 10 Ml Vial) 56 unit SUBCUT BEDTIME [facility] Last Admin: 03/13/24 21:20 Dose: 56 unit Insulin Glargine (Insulin Glargine,Hum.Rec.Anlog 100 Unit/Ml 10 Ml Vial) 23 unit SUBCUT DAILY [facility] Last Admin: 03/13/24 08:56 Dose: 23 unit Insulin Human Lispro (Insulin Lispro 100 Unit/Ml 3 Ml Vial) 0 unit SUBCUT QIDACHS [facility]; Protocol Last Admin: 03/13/24 21:20 Dose: 2 unit Lisinopril (Lisinopril 2.5 Mg Tablet) 2.5 mg PO DAILY [facility]; Protocol Last Admin: 03/13/24 08:53 Dose: 2.5 mg Magnesium Hydroxide (Milk Of Magnesia 30 Ml Oral.Susp) 30 ml PO DAILY PRN PRN Reason: Constipation Melatonin (Melatonin 3 Mg Tablet) 6 mg PO BEDTIME PRN PRN Reason: Insomnia Ondansetron HCl (Ondansetron Hcl 4 Mg/2 Ml Vial) 4 mg IVPUSH Q8H PRN PRN Reason: Nausea and Vomiting Oxycodone HCl (Oxycodone Hcl Immed Release 5 Mg Tablet) 5 mg PO Q4H PRN PRN Reason: Pain, Severe (Pain Scale 7-10) Last Admin: 03/13/24 21:30 Dose: 5 mg Pantoprazole Sodium (Pantoprazole Sodium 20 Mg Tablet.) 40 mg PO BID@0630,1630 [facility] Last Admin: 03/13/24 18:23 Dose: 40 mg Pharmacy Consult (Consult Rx Vancomycin Dosing) 1 each MISCELLANE DAILY PRN PRN Reason: Consult order Sodium Chloride (0.9 % Sodium Chloride Flush 3 Ml Syringe) [facility] Last Admin: 03/13/24 18:24 Dose: 3 ml Home Medications ?Medication ?Instructions ?Recorded ?Confirmed ?Last Taken ?Type blood sugar diagnostic (FreeStyle 10/07/20 10/24/23 1 Day Ago History Test strips) ~10/06/20 clopidogrel 75 mg tablet 1 tab PO DAILY 10/07/20 03/10/24 03/09/24 History simvastatin 40 mg tablet 40 mg PO DAILY@1900 10/07/20 03/10/24 03/08/24 History semaglutide 0.25 mg or 0.5 mg (2 2 mg subcut SA 11/22/22 03/10/24 03/06/24 History mg/3 mL) subcutaneous pen injector (Ozempic) glipizide 10 mg tablet 10 mg PO BID 10/02/23 03/10/24 03/09/24 History metformin 1,000 mg tablet 1,000 mg PO BID 10/02/23 03/10/24 03/09/24 History empagliflozin 10 mg tablet 10 mg PO DAILY 01/08/24 03/10/24 03/09/24 History (Jardiance) insulin glargine 100 unit/mL (3 80 unit subcut BEDTIME 01/08/24 03/10/24 03/08/24 History mL) subcutaneous pen (Basaglar KwikPen U-100 Insulin) lisinopril 2.5 mg tablet 2.5 mg PO DAILY 02/09/24 03/10/24 03/09/24 History insulin glargine 100 unit/mL (3 30 unit subcut DAILY 03/10/24 03/10/24 03/09/24 History mL) subcutaneous pen (Basaglar KwikPen U-100 Insulin) omeprazole 20 mg capsule,delayed 20 mg PO BID@0630,1630 03/10/24 03/10/24 03/09/24 History release sulfamethoxazole 800 1 tab PO BID 03/10/24 03/10/24 03/09/24 History mg-trimethoprim 160 mg tablet Physical Exam Vital Signs: Vital Signs: Last Vital Signs Temp 98.2 F 03/13/24 20:00 Pulse 82 03/13/24 20:00 Resp 18 03/13/24 20:00 BP 113/61 03/13/24 20:00 Pulse Ox 97 03/13/24 20:00 O2 Del Method Room Air 03/13/24 20:00 BMI result Body Mass Index 41.0 Extrem: Other: left foot open area laterally plantar some malodor,drainage neuropathy Results Labs 03/11/24 05:48 03/13/24 06:01 Labs: BMP 03/13/24 06:01 Creatinine 1.24 Microbiology Microbiology Results: Microbiology 03/12/24 08:17 Blood - Venous Blood Culture - Preliminary No growth after 24 hours. 03/12/24 08:11 Blood - Venous Blood Culture - Preliminary No growth after 24 hours. 03/10/24 11:49 Blood - Venous Blood Culture - Final Methicillin Res Staph Aureus 03/10/24 11:49 Blood - Venous Blood Culture - Final Methicillin Res Staph Aureus Assessment and Plan (1) MRSA bacteremia: Status: Acute (2) Osteomyelitis: Status: Acute (3) Osteomyelitis: Qualifiers: Osteomyelitis type: other acute Osteomyelitis location: foot Laterality: left Qualified Code(s): M86.172 - Other acute osteomyelitis, left ankle and foot Status: Acute Plan MRSA bacteremia ,likely from nonhealing left foot OM He has had multiple attempts at healing He has had Vancomycin in past and levels regularly done and therapeutic (17-19 usually). He can have Daptomycin,but it doesnt have superiority over Vancomycin here,but can be alternative but Vancomycin which howeverv would not have negatively affected his healing earlier. Check TTE evaluate endocarditis. Vascular opinion for some definitive surgical possibilities,including and not limited to amputation. Recheck blood cultures. May follow with [facility] per patient choice.
--- NOTE | 2024-03-14 00:41 | PM.EVENT ---
Event Note Date of Service: 03/14/24 Event Note: needs six week IV Daptomycin with weekly CK and creatinine and CBC Time Spent With Patient Time: Total time managing care of this patient today ____ minutes.
[2024-03-14 03:38] VITALS: BP 118/64; PULSE 74; RESP 20; TEMP 36.2; O2SAT 94
[2024-03-14] MEDS: Pantoprazole Sodium 20 MG TABLET.DR 40 MG PO ×2 (05:55→16:59)
[2024-03-14 06:52] LABS: Creatinine Clr Calc Pharmacy 105.2; Estimated Glomerular Filt Rate > 60
--- NOTE | 2024-03-14 07:33 | P.PNIM_ITS ---
Subjective Subjective Date of Service: 03/14/24 Interval History: Follow-up on MRSA bacteremia, and osteomyelitis of the foot The patient has previously completed 12 weeks of IV antibioitics (Vanco) ending end of january doing ok with no sings or symptoms of sepsis Physical Exam 2 Vital Signs: Vital Signs: Last Vital Signs Temp 97.2 F 03/14/24 03:38 Pulse 74 03/14/24 03:38 Resp 20 03/14/24 03:38 BP 118/64 03/14/24 03:38 Pulse Ox 94 03/14/24 03:38 O2 Del Method Room Air 03/14/24 03:38 BMI result Body Mass Index 41.0 Const: Other: General: AO X 3, no acute distress Resp: CTA bilateral CVS: S1,S2,RRR GI: +BS, NT, no distention Skin: No rash MSK: wound dressing in place Neuro: motor grossly intact Psych: appropriate affect Objective Data Active Medications Acetaminophen (Acetaminophen 325 Mg Tablet) 650 mg PO Q6H PRN PRN Reason: Pain, Mild (Pain Scale 1-3), fever or headache Last Admin: 03/13/24 03:49 Dose: 650 mg Documented By: ANDRZEJ Atorvastatin Calcium (Atorvastatin Calcium 20 Mg Tablet) 20 mg PO DAILY@1900 [facility] Last Admin: 03/13/24 18:23 Dose: 20 mg Documented By: PERLA Benzonatate (Benzonatate 100 Mg Capsule) 100 mg PO TID PRN PRN Reason: Cough Calcium Carbonate (Calcium Carbonate 750 Mg Tab.Chew) 750 mg PO Q4H PRN PRN Reason: Heartburn Clopidogrel Bisulfate (Clopidogrel Bisulfate 75 Mg Tablet) 75 mg PO DAILY [facility] Last Admin: 03/13/24 08:53 Dose: 75 mg Documented By: PERLA Empagliflozin (Empagliflozin 10 Mg Tablet) 10 mg PO DAILY [facility] Last Admin: 03/13/24 08:53 Dose: 10 mg Documented By: PERLA Enoxaparin Sodium (Enoxaparin Sodium 40 Mg/0.4 Ml Syringe) 40 mg SUBCUT Q24H [facility] Last Admin: 03/13/24 13:55 Dose: 40 mg Documented By: PERAL Glipizide (Glipizide 10 Mg Tablet) 10 mg PO BID [facility] Last Admin: 03/13/24 21:20 Dose: 10 mg Documented By: ANDRZEJ Glucose (Glucose Gel 15 Gm Gel..Gram.) 15 gm PO Q15M PRN; Protocol PRN Reason: per Hypoglycemia Standing Ord. Dextrose (D10) 250 mls @ 750 mls/hr IV Q15M PRN; Protocol PRN Reason: per Hypoglycemia Standing Ord. Daptomycin 1,000 mg/ Sodium (Chloride) 70 mls @ 140 mls/hr IV Q24H [facility] Last Infusion: 03/13/24 19:05 Dose: Infused Documented By: ANDRZEJ Insulin Glargine (Insulin Glargine,Hum.Rec.Anlog 100 Unit/Ml 10 Ml Vial) 56 unit SUBCUT BEDTIME [facility] Last Admin: 03/13/24 21:20 Dose: 56 unit Documented By: ANDRZEJ Insulin Glargine (Insulin Glargine,Hum.Rec.Anlog 100 Unit/Ml 10 Ml Vial) 23 unit SUBCUT DAILY [facility] Last Admin: 03/13/24 08:56 Dose: 23 unit Documented By: PERLA Insulin Human Lispro (Insulin Lispro 100 Unit/Ml 3 Ml Vial) 0 unit SUBCUT QIDACHS [facility]; Protocol Last Admin: 03/13/24 21:20 Dose: 2 unit Documented By: ANDRZEJ Lisinopril (Lisinopril 2.5 Mg Tablet) 2.5 mg PO DAILY [facility]; Protocol Last Admin: 03/13/24 08:53 Dose: 2.5 mg Documented By: PERLA Magnesium Hydroxide (Milk Of Magnesia 30 Ml Oral.Susp) 30 ml PO DAILY PRN PRN Reason: Constipation Melatonin (Melatonin 3 Mg Tablet) 6 mg PO BEDTIME PRN PRN Reason: Insomnia Ondansetron HCl (Ondansetron Hcl 4 Mg/2 Ml Vial) 4 mg IVPUSH Q8H PRN PRN Reason: Nausea and Vomiting Oxycodone HCl (Oxycodone Hcl Immed Release 5 Mg Tablet) 5 mg PO Q4H PRN PRN Reason: Pain, Severe (Pain Scale 7-10) Last Admin: 03/13/24 21:30 Dose: 5 mg Documented By: ANDRZEJ Pantoprazole Sodium (Pantoprazole Sodium 20 Mg Tablet.) 40 mg PO BID@0630,1630 [facility] Last Admin: 03/14/24 05:55 Dose: 40 mg Documented By: ANDRZEJ Pharmacy Consult (Consult Rx Vancomycin Dosing) 1 each MISCELLANE DAILY PRN PRN Reason: Consult order Sodium Chloride (0.9 % Sodium Chloride Flush 3 Ml Syringe) 3 ml IVFLUSH QSHIFT [facility] Last Admin: 03/14/24 01:13 Dose: Not Given Documented By: ANDRZEJ Non-Admin Reason: Previously Administered Labs 03/11/24 05:48 03/14/24 05:42 Labs: Laboratory Results - last 24 hr 03/13/24 03/13/24 03/13/24 06:01 07:33 11:27 Estim Creat Clear Calc 94.2 Estimated GFR > 60 POC Glucose 183 H 190 H 03/13/24 03/13/24 03/14/24 16:16 19:48 05:42 Estim Creat Clear Calc 105.2 Estimated GFR > 60 POC Glucose 125 H 160 H Microbiology Microbiology Results: Microbiology 03/12/24 08:17 Blood Culture - Preliminary Blood - Venous No growth after 24 hours. 03/12/24 08:11 Blood Culture - Preliminary Blood - Venous No growth after 24 hours. 03/10/24 11:49 Blood Culture - Final Blood - Venous Methicillin Res Staph Aureus 03/10/24 11:49 Blood Culture - Final Blood - Venous Methicillin Res Staph Aureus Assessment and Plan (1) Osteomyelitis: Status: Acute (2) MRSA bacteremia: Status: Acute Plan 58/m with HLD, insulin-dependent type 2 diabetes, peripheral vascular disease, hx of osteo and MRSA bacteremia completed 6 weeks of IV vanco on february 18, , and RIGOBERTO not compliant with CPAP who presents to the ED with?fever and worsening left foot infection and is admitted again with osteomylitis and MRSA bacteremia again. Acute left foot osteomyelitis, Secondary to chronic diabetic foot ulcerrecurrent recurrent MRSA bacteremia previously treated with vanco -vanco changed to Daptomycin on 03/12, follow cpk weekly -repeat culture 03/12 pending -surgery consult (Issac) recommend possible ampuation but he doesn't want ampuation done in the hospital and will follow up with his skid road worker. I spoke to his skid road worker who agrees that he need amputation but stated that the patient has resisted ampuation only opting for removal of the involved bone. -Seen by vascular: no indication for acute intervention -TTE tomorrow Acute lactic acidosis d/t sepsis, resolved. Insulin-dependent type 2 diabetes with hyperglycemia Poorly controlled, better today continue lantus and ssi, glipizide and jardiance diabetic diet metformin on hold HLD Continue statin Peripheral artery disease Continue clopidogrel Full Code DVT Prophylaxis: Lovenox need for inpt: IV Abx for bacteremia and osteomylitis and waiting for final cultues Quality Stroke Does the patient have a stroke diagnosis?: No VTE Prior VTE?: No VTE Risk Level:: Medical - moderate - high VTE Device Contraindication: Treatment Not Indicated VTE Drug Contraindication: N/A - Med Ordered
[2024-03-14 07:50] LABS: Glucose, Whole Blood 131 mg/dL (60-115)
[2024-03-14 08:00] VITALS: BP 135/76; PULSE 107; RESP 18; TEMP 36.5; O2SAT 98
[2024-03-14] MEDS: lisinopriL 2.5 MG TABLET PO (08:59)
[2024-03-14] MEDS: Clopidogrel Bisulfate 75 MG TABLET PO (08:59)
[2024-03-14] MEDS: glipiZIDE 10 MG TABLET PO ×2 (08:59→20:35)
[2024-03-14] MEDS: 0.9 % Sodium Chloride Flush 3 ML SYRINGE IVFLUSH ×2 (08:59→16:59)
[2024-03-14] MEDS: Empagliflozin 10 MG TABLET PO (09:00)
[2024-03-14] MEDS: Insulin Glargine,Hum.rec.anlog 100 UNIT/ML 10 ML VIAL 23 UNIT SUBCUT (09:00)
[2024-03-14 11:20] LABS: Glucose, Whole Blood 180 mg/dL (60-115)
[2024-03-14] MEDS: Insulin Lispro 100 UNIT/ML 3 ML VIAL SUBCUT (12:06)
[2024-03-14] MEDS: Enoxaparin Sodium 40 MG/0.4 ML SYRINGE SUBCUT (13:16)
[2024-03-14 15:19] VITALS: BP 126/73; PULSE 78; RESP 18; TEMP 36.9; O2SAT 97
[2024-03-14 16:33] LABS: Glucose, Whole Blood 107 mg/dL (60-115)
[2024-03-14] MEDS: DAPTOmycin 1,000 MG in 0.9 % Sodium Chloride 50 ML 140 MG IV (17:00)
[2024-03-14] MEDS: oxyCODONE HCl Immed Release 5 MG TABLET PO (17:19)
[2024-03-14] MEDS: Atorvastatin Calcium 20 MG TABLET PO (17:52)
[2024-03-14 20:00] VITALS: BP 122/73; PULSE 86; RESP 20; TEMP 36.8; O2SAT 97
[2024-03-14 20:13] LABS: Glucose, Whole Blood 136 mg/dL (60-115)
[2024-03-14] MEDS: Insulin Glargine,Hum.rec.anlog 100 UNIT/ML 10 ML VIAL 56 UNIT SUBCUT (20:34)
[2024-03-15 03:14] VITALS: BP 128/62; PULSE 87; RESP 20; TEMP 36.2; O2SAT 96
[2024-03-15 05:53] LABS: Estimated Glomerular Filt Rate 53
[2024-03-15] MEDS: Pantoprazole Sodium 20 MG TABLET.DR 40 MG PO ×2 (06:09→17:51)
--- NOTE | 2024-03-15 07:00 | CA_ITS ---
Transthoracic Echocardiogram Patient (Last, First, Middle): Mitchel Augustin A Gender: Male Date of : 1965 Age: 58 Procedure Date: 03/15/2024 Procedure Type: Transthoracic Echocardiogram Location: S3E Height: 182.88 cm Weight: 136.08 kg BSA: 2.53 m2 Heart Rate: bpm BP: 122 / 80 mmHg Order Builder Loader: JADEN Referring MD: Abimael Lambert MD Symptoms: bacteremia Study Quality: Technically Difficult due to body habitus ECG Rhythm: Sinus Conclusions: - The left ventricular systolic function is low normal. The calculated ejection fraction is 53% by biplane method. - No obvious valvular pathology seen on this study. Findings Left Ventricle Normal left ventricular cavity size. There is mildly increased left ventricular wall thickness. The left ventricular systolic function is low normal. The calculated ejection fraction is 53% by biplane method. There is no evidence of regional wall motion abnormalities. Evidence suggests grade I (mild) diastolic dysfunction. Right Ventricle Moderately increased right ventricular cavity size. There is normal right ventricular systolic function. Atria The left atrium is mildly dilated. The right atrium is normal in size. Aortic Valve There is a normal trileaflet aortic valve. There is no aortic valve stenosis. There is no aortic valve regurgitation. Mitral Valve The mitral valve appears normal. There is no mitral valve regurgitation. There is no mitral valve stenosis. Pulmonic Valve The pulmonic valve is likely normal. Tricuspid Valve There is trace tricuspid valve regurgitation. There is no evidence of pulmonary hypertension. Great Vessels The asc aorta is normal in size. Venous The inferior vena cava is mildly dilated and collapses greater than 50% with inspiration. Pericardium/Pleural There is no evidence of pericardial effusion. Prior Study Comparison No prior study available for comparison. Recommendations, Care & Conclusions No obvious valvular pathology seen on this study. Consider a MICAELA if clinically appropriate. Measurements 2D Linear Measurements IVSd: 1.22 0.6-0.9/0.6-1.0 cm LVIDd: 4.85 3.9-5.3/4.2-5.9 cm LVIDd Index: 1.92 2.4-3.2/2.2-3.1 cm/m2 LVIDs: 3.27 2.0-3.6 cm LVPWd: 1.25 0.7-1.1 cm Ao Root: 3.50 2.1-3.5 cm LA Diam: 4.30 2.7-3.8/3.0-4.0 cm LAIDs Index: 1.70 1.5-2.3 cm/m2 LV Mass: 289.26 67-162/88-224 g LV Mass Index: 114.33 43-95/49-115 g/m2 LVOT Diam: 2.50 3.0+(-)1.3 cm 2D Systolic Function EF 4C: 50.70 >55% EF 2C: 51.60 >55% EF BiP: 53.00 >55% Mitral Valve MV VTI: 0.24 MV Pk Everardo: 0.98 MV Mn Everardo: 0.59 MV Pk Grad: 4.00 MV Mn Grad: 2.00 MV Pk E: 0.57 MV PK A: 1.04 MV Decel Time: 158.00 E/A: 0.60 E'Lateral: 4.68 E'Medial: 5.00 E/E' Med: 11.50 E/E' Lat: 12.30 PHT: 46.00 MVA PHT: 4.78 MVA Continuity: 4.18 Decel [place]: 3.63 Aortic Valve AoV Pk Everardo: 1.66 AoV Mn Everardo: 1.08 AoV VTI: 0.35 AoV Pk Grad: 11.00 Aov Mn Grad: 6.00 JONO Cont.VTI: 2.89 LVOT LVOT Pk Everardo: 0.97 LVOT Mn Everardo: 0.65 LVOT VTI: 0.21 LVOT Pk Grad: 4.00 LVOT Mn Grad: 2.00 LVOT Diam: 2.50 LVOT Area: 4.91 Diastolic Function MV Pk E: 0.57 MV Pk A: 1.04 E/A: 0.60 E'Medial: 5.00 E/E' Med: 11.50 E' Laterial: 4.68 E/E' Lat: 12.30 Right Ventricle TAPSE (mm): 36.00 TVS' Everardo: 14.00 Tricuspid Valve TR Pk Everardo: 1.72 TR Pk Grad: 12.00 RA Press: 3.00 RVSP: 15.00 Great Vessels Aorta Ao Root-2D: 3.50 2.0-3.7 cm Ao Asc: 3.50 2.1-3.4 cm Pulmonary Valve PV Pk Everardo: 1.46 Peak PV Grad: 9.00 Updated in Other Vendor System with Status of Final Des Ramirez MD electronically signed on 03/15/2024 11:24:05 AM with status of Final
[2024-03-15 07:35] LABS: Glucose, Whole Blood 169 mg/dL (60-115)
[2024-03-15 07:57] VITALS: BP 106/59; PULSE 88; RESP 18; TEMP 36.6; O2SAT 97
[2024-03-15] MEDS: Insulin Lispro 100 UNIT/ML 3 ML VIAL SUBCUT ×2 (08:18→11:47)
[2024-03-15] MEDS: Insulin Glargine,Hum.rec.anlog 100 UNIT/ML 10 ML VIAL 23 UNIT SUBCUT (08:19)
[2024-03-15] MEDS: Clopidogrel Bisulfate 75 MG TABLET PO (08:19)
[2024-03-15] MEDS: lisinopriL 2.5 MG TABLET PO (08:19)
[2024-03-15] MEDS: glipiZIDE 10 MG TABLET PO ×2 (08:20→20:59)
[2024-03-15] MEDS: Empagliflozin 10 MG TABLET PO (08:20)
--- NOTE | 2024-03-15 08:30 | P.PNIM_ITS ---
Subjective Subjective Date of Service: 03/15/24 Interval History: Follow-up on MRSA bacteremia, and osteomyelitis of the foot he previously completed 12 weeks of IV antibioitics (Vanco) ending end january no sings of sepsis, recent blood culture from 03/12 negative at 48 hrs Physical Exam 2 Vital Signs: Vital Signs: Last Vital Signs Temp 97.2 F 03/15/24 03:14 Pulse 87 03/15/24 03:14 Resp 20 03/15/24 03:14 BP 128/62 03/15/24 03:14 Pulse Ox 96 03/15/24 03:14 O2 Del Method Room Air 03/15/24 03:14 BMI result Body Mass Index 41.0 Const: Other: General: AO X 3, no acute distress Resp: CTA bilateral CVS: S1,S2,RRR GI: +BS, NT, no distention Skin: No rash MSK: wound dressing in place Neuro: motor grossly intact Psych: appropriate affect Objective Data Active Medications Acetaminophen (Acetaminophen 325 Mg Tablet) 650 mg PO Q6H PRN PRN Reason: Pain, Mild (Pain Scale 1-3), fever or headache Last Admin: 03/13/24 03:49 Dose: 650 mg Documented By: ANDRZEJ Atorvastatin Calcium (Atorvastatin Calcium 20 Mg Tablet) 20 mg PO DAILY@1900 [facility] Last Admin: 03/14/24 17:52 Dose: 20 mg Documented By: ALBERTO Benzonatate (Benzonatate 100 Mg Capsule) 100 mg PO TID PRN PRN Reason: Cough Calcium Carbonate (Calcium Carbonate 750 Mg Tab.Chew) 750 mg PO Q4H PRN PRN Reason: Heartburn Clopidogrel Bisulfate (Clopidogrel Bisulfate 75 Mg Tablet) 75 mg PO DAILY [facility] Last Admin: 03/14/24 08:59 Dose: 75 mg Documented By: ALBERTO Empagliflozin (Empagliflozin 10 Mg Tablet) 10 mg PO DAILY [facility] Last Admin: 03/14/24 09:00 Dose: 10 mg Documented By: ALBERTO Enoxaparin Sodium (Enoxaparin Sodium 40 Mg/0.4 Ml Syringe) 40 mg SUBCUT Q24H [facility] Last Admin: 03/14/24 13:16 Dose: 40 mg Documented By: ALBERTO Glipizide (Glipizide 10 Mg Tablet) 10 mg PO BID [facility] Last Admin: 03/14/24 20:35 Dose: 10 mg Documented By: SCARLETT Glucose (Glucose Gel 15 Gm Gel..Gram.) 15 gm PO Q15M PRN; Protocol PRN Reason: per Hypoglycemia Standing Ord. Dextrose (D10) 250 mls @ 750 mls/hr IV Q15M PRN; Protocol PRN Reason: per Hypoglycemia Standing Ord. Daptomycin 1,000 mg/ Sodium (Chloride) 70 mls @ 140 mls/hr IV Q24H [facility] Last Infusion: 03/14/24 17:52 Dose: Infused Documented By: ALBERTO Insulin Glargine (Insulin Glargine,Hum.Rec.Anlog 100 Unit/Ml 10 Ml Vial) 56 unit SUBCUT BEDTIME [facility] Last Admin: 03/14/24 20:34 Dose: 56 unit Documented By: SCARLETT Insulin Glargine (Insulin Glargine,Hum.Rec.Anlog 100 Unit/Ml 10 Ml Vial) 23 unit SUBCUT DAILY [facility] Last Admin: 03/14/24 09:00 Dose: 23 unit Documented By: ALBERTO Insulin Human Lispro (Insulin Lispro 100 Unit/Ml 3 Ml Vial) 0 unit SUBCUT QIDACHS [facility]; Protocol Last Admin: 03/14/24 21:34 Dose: Not Given Documented By: SCARLETT Non-Admin Reason: No Insulin Coverage Lisinopril (Lisinopril 2.5 Mg Tablet) 2.5 mg PO DAILY [facility]; Protocol Last Admin: 03/14/24 08:59 Dose: 2.5 mg Documented By: ALBERTO Magnesium Hydroxide (Milk Of Magnesia 30 Ml Oral.Susp) 30 ml PO DAILY PRN PRN Reason: Constipation Melatonin (Melatonin 3 Mg Tablet) 6 mg PO BEDTIME PRN PRN Reason: Insomnia Ondansetron HCl (Ondansetron Hcl 4 Mg/2 Ml Vial) 4 mg IVPUSH Q8H PRN PRN Reason: Nausea and Vomiting Oxycodone HCl (Oxycodone Hcl Immed Release 5 Mg Tablet) 5 mg PO Q4H PRN PRN Reason: Pain, Severe (Pain Scale 7-10) Last Admin: 03/14/24 17:19 Dose: 5 mg Documented By: ALBERTO Pantoprazole Sodium (Pantoprazole Sodium 20 Mg Tablet.Dr) 40 mg PO BID@0630,1630 [facility] Last Admin: 03/14/24 16:59 Dose: 40 mg Documented By: ALBERTO Pharmacy Consult (Consult Rx Vancomycin Dosing) 1 each MISCELLANE DAILY PRN PRN Reason: Consult order Sodium Chloride (0.9 % Sodium Chloride Flush 3 Ml Syringe) 3 ml IVFLUSH QSHIFT [facility] Last Admin: 03/14/24 22:42 Dose: Not Given Documented By: SCARLETT Non-Admin Reason: No Access Labs 03/11/24 05:48 03/15/24 05:09 Labs: Laboratory Results - last 24 hr 03/14/24 03/14/24 03/14/24 05:42 07:34 11:15 Estim Creat Clear Calc 105.2 Estimated GFR > 60 POC Glucose 131 H 180 H 03/14/24 03/14/24 16:29 19:58 Estim Creat Clear Calc Estimated GFR POC Glucose 107 136 H Microbiology Microbiology Results: Microbiology 03/12/24 08:17 Blood Culture - Preliminary Blood - Venous No growth after 48 hours. 03/12/24 08:11 Blood Culture - Preliminary Blood - Venous No growth after 48 hours. Assessment and Plan (1) Osteomyelitis: Status: Acute (2) MRSA bacteremia: Status: Acute Plan 58-year-old male with a history of hyperlipidemia, insulin-dependent type 2 diabetes, peripheral vascular disease, osteomyelitis, and MRSA bacteremia (completed 6 weeks of IV vancomycin on 02/18), as well as RIGOBERTO non-compliant with CPAP. He presents to the ED with fever and worsening left foot infection and is admitted for recurrent osteomyelitis and MRSA bacteremia. Acute left foot osteomyelitis: Secondary to chronic diabetic foot ulcer and recurrent MRSA bacteremia, previously treated with vancomycin. started on vancomycin changed to daptomycin on 03/12; follow CPK weekly. Repeat blood cultures from 03/12 negative at 48 hours. Surgery consultation (Dr. Davenport) recommended possible amputation, but the patient prefers outpatient care and will follow up with his lawn care specialist, who agrees that amputation is needed but notes the patient prefers removal of the involved bone. Vascular surgery consult: No indication for acute intervention. ID recommends 6 weeks of Daptomycin, check weekly CPK and CBC TTE ordered to exclude endocarditis. PICC line requested. Acute lactic acidosis: Secondary to sepsis; resolved. Insulin-dependent type 2 diabetes: Poorly controlled, now improving. Continue Lantus, SSI, glipizide, Jardiance, and diabetic diet. Hold metformin. Hyperlipidemia: Continue statin. Peripheral artery disease: Continue clopidogrel. DVT prophylaxis: Lovenox. Plan: Inpatient admission for IV antibiotics (daptomycin) to treat bacteremia and osteomyelitis, awaiting final cultures. Code Status: Full code. Quality Stroke Does the patient have a stroke diagnosis?: No VTE Prior VTE?: No VTE Risk Level:: Medical - moderate - high VTE Device Contraindication: Treatment Not Indicated VTE Drug Contraindication: N/A - Med Ordered
--- NOTE | 2024-03-15 08:56 | P.DS_ITS ---
DS: Providers Provider Date of admission: 03/10/24 13:35 Primary care physician: Shreyas Da Silva MD Consults: 03/10/24 13:34 Consult to Vascular Surgery Routine Consulting Provider: [facility] V[facility] Services Reason for consultation: Osteo left foot, hx of PAD 03/10/24 19:23 Consult to Wound Care Routine Reason for consultation: left foot wound Has provider been notified: No 03/11/24 10:13 Consult to General Surgery Routine Consulting Provider: Shreyas Davenport Reason for consultation: osteomylitis ? need ampuation 03/12/24 16:23 Consult to Infectious Diseases Routine Consulting Provider: [facility] Infectious Disease Center Reason for consultation: MRSA bacteremia Has provider been notified: No DS: Diagnosis Discharge Diagnosis (1) Osteomyelitis: Status: Acute (2) MRSA bacteremia: Status: Acute DS: Summary Hospital Course Hospital Course: admission hpi Chief Complaint: Foot infection, fever Pt is a 58-year-old male with a PMH significant for HLD, insulin-dependent type 2 diabetes, peripheral vascular disease, hx of osteo, and RIGOBERTO not compliant with CPAP who presents to the ED with?fever and worsening left foot infection. Patient previously diagnosed with osteomyelitis in October/November at [facility] and had amputation of left 5th digit. Was discharged on 6 weeks of vancomycin. Patient presented to the hospital here at [facility] on 01/08/2024 and treated for acute osteomyelitis of 4th metatarsal as well as possible 3rd metatarsal and was discharged again on 6 weeks of vancomycin. Patient follows with Dr. Gabriel at [facility] and presented there yesterday for follow-up visit where patient had temperature of 101.4 degrees, and left foot was noted to be swollen and red after 8 was unwrapped. Wound was debrided and packed with iodine and patient was started on Bactrim p.o.. Patient's fever increased at home to 103.4 last night inpatient began taking Tylenol. This morning awoke and felt much worse with nausea, vomiting, and general malaise. Denies abdominal pain or diarrhea. No chest pain/pressure, palpitations. Denies shortness or breath or difficulty breathing. In the ED pt was tachycardic up to 122, hypertensive up to 142/72, and mildly elevated temp of 99.6 degrees. Labs were significant for leukocytosis of 15.4, ESR 88, CRP 35.55, sodium 133, glucose 392, lactic acid 2.2, and T bili of 1.9. X-ray of left foot concerning for cellulitis/osteomyelitis at proximal 4th and 5th metatarsals and lateral aspect of left foot. ?Left lower extremity venous duplex negative for DVT. Pt was treated with ondansetron, ceftriaxone, and vancomycin. Pt will be admitted to the hospital for treatment and further evaluation of acute Hospital course: Acute osteomylitis of the left food, MRSA bacteremia 58-year-old male with a history of hyperlipidemia, insulin-dependent type 2 diabetes, peripheral vascular disease, osteomyelitis, and MRSA bacteremia (completed 6 weeks of IV vancomycin on 02/18), as well as RIGOBERTO non-compliant with CPAP. He presented to the ED with fever and worsening left foot infection, and workup revealed osteomyelitis of the left foot associated with recurrent MRSA bacteremia. He was evaluated by surgery (Dr. Davenport), and due to the non-healing nature of the wound and bone, possible amputation was advised. However, the patient is not ready for amputation at this time and will explore this with his aluminum hydroxide process operator on an outpatient basis. In the meantime, he opted for another course of IV antibiotics. Vancomycin was initiated but changed to daptomycin on 03/12 per ID recommendations, with a planned six-week course and weekly monitoring of CPK and CBC. Repeat blood cultures from 03/10 were negative at 48 hours. A PICC line was placed for home infusion of IV antibiotics. The patient was seen by vascular surgery (Dr. Caceres), which recommended possible outpatient vascular testing. I discussed the case with his aluminum hydroxide process operator (Dr. Jhony Gabriel), who also advised amputation, but the patient again declined and prefers removal of the involved bone instead, to be addressed on an outpatient basis. An echocardiogram showed no evidence of endocarditis. Acute lactic acidosis: Secondary to sepsis; resolved. Insulin-dependent type 2 diabetes: resume home meds Hyperlipidemia: Continue statin. Peripheral artery disease: Continue Plavix dispo: home with [facility] Time Attestation Discharge Coordination Time (in mins): 40 Quality: Safe Use of Opioids Does Pt have an Active Cancer Diagnosis on the Problem List?: No Quality: Stroke Does the patient have a stroke diagnosis?: No Physical Exam Vital Signs: Vital Signs: Last Vital Signs Temp 97.9 F 03/15/24 07:57 Pulse 88 03/15/24 07:57 Resp 18 03/15/24 07:57 BP 106/59 L 03/15/24 07:57 Pulse Ox 97 03/15/24 07:57 O2 Del Method Room Air 03/15/24 07:57 BMI result Body Mass Index 41.0 DS: Data Data Completed and Pending Completed studies during hospitalization [Text1]: Procedures Labs on day of discharge: Laboratory Results - last 24 hr 03/14/24 03/14/24 03/14/24 11:15 16:29 19:58 Creatinine Estim Creat Clear Calc Estimated GFR POC Glucose 180 H 107 136 H Total Creatine Kinase 03/15/24 03/15/24 05:09 07:31 Creatinine 1.39 Estim Creat Clear Calc 84.0 Estimated GFR 53 POC Glucose 169 H Total Creatine Kinase 81 Preliminary micro results at discharge 03/12/24 08:17 Blood Culture - Preliminary Blood - Venous No growth after 48 hours. 03/12/24 08:11 Blood Culture - Preliminary Blood - Venous No growth after 48 hours. Discharge Plan Discharge Patient Disposition: Home, Self-Care Discharge Diagnosis: MRSA bacteremia, osteomylitis of the foot, diabetic foot ulcer Referrals: Shreyas Da Silva MD [Primary Care Provider] - 1 Week Discharge Medications: New daptomycin 500 mg Recon Soln 1,000 mg IV Q24H Qty: 38 0RF Continued (DME) blood sugar diagnostic Strip See Rx Instructions .Route Qty: 50 6RF Rx Instructions: As directed clopidogrel 75 mg tablet 1 tab PO DAILY (DME) FreeStyle Test Strip MISCELLANEOUS simvastatin 40 mg tablet 40 mg PO DAILY@1900 Jardiance 10 mg tablet 10 mg PO DAILY insulin glargine [Basaglar KwikPen U-100 Insulin] 100 unit/mL (3 mL) insulin pen 80 unit subcut BEDTIME omeprazole 20 mg capsule,delayed release(DR/EC) 20 mg PO BID@0630,1630 insulin glargine [Basaglar KwikPen U-100 Insulin] 100 unit/mL (3 mL) insulin pen 30 unit subcut DAILY Ozempic 0.25 mg or 0.5 mg (2 mg/3 mL) pen injector 2 mg subcut SA metformin 1,000 mg tablet 1,000 mg PO BID glipizide 10 mg tablet 10 mg PO BID lisinopril 2.5 mg tablet 2.5 mg PO DAILY Discontinued sulfamethoxazole-trimethoprim 800-160 mg tablet 1 tab PO BID Diet: Diabetic diet Activity on Discharge: As tolerated Stand Alone Forms: Patient Portal Discharge page Print Language: Maltese Care Plan Goals: resolution of MRSA bacteremia and Osteomylitis of the foot Health Concerns: MRSA bacteremia, osteomyelitis of the foot, diabetic foot ulcer Plan of Treatment: IV Daptomycin daily until 2024 Check CPK and CBC every week on Mondays while on daptomycin. Follow-up with your doctor in a week Ask your doctor to make infectious Disease follow-up will Norman Munoz infectious Disease Assessment: See above
[2024-03-15 11:31] LABS: Glucose, Whole Blood 210 mg/dL (60-115)
--- NOTE | 2024-03-15 13:14 | MHC.CM.PN ---
DP: PT IS AWAITING PICC PLACEMENT TODAY THEN DC HOME WITH RESUMPTION OF [facility] AND RESUMPTION OF HOME SERVICES [facility]. [facility] LIAISON IN TO MEET AND DO TEACH.
--- NOTE | 2024-03-15 14:00 | PC.NURSE ---
Patient off unit for PICC placement
--- NOTE | 2024-03-15 17:17 | PC.NURSE ---
This nurse placed a#22 g angio to L hand + blood return and flushes with ease
[2024-03-15] MEDS: DAPTOmycin 1,000 MG in 0.9 % Sodium Chloride 50 ML 140 MG IV (17:29)
--- NOTE | 2024-03-15 17:30 | PC.NURSE ---
Patient came up at 1720, IR unable to placed PICC, 22 gauge peripheral IV placed by IR RN in the left hand. Plan is to have IR place PICC tomorrow morning. Patient agreeable with the plan. Daptomycin administred as scheduled
[2024-03-15 17:51] LABS: Glucose, Whole Blood 109 mg/dL (60-115)
[2024-03-15] MEDS: 0.9 % Sodium Chloride Flush 3 ML SYRINGE IVFLUSH ×2 (17:52→21:13)
[2024-03-15 19:06] VITALS: BP 121/70; PULSE 82; RESP 16; TEMP 36.7; O2SAT 94
[2024-03-15] MEDS: oxyCODONE HCl Immed Release 5 MG TABLET PO (19:17)
--- NOTE | 2024-03-15 19:22 | PC.NURSE ---
Left plantar wound dressing ordered to be changed daily, dressing changed per order, patient tolerated procedure well but started to complain of pain and asked for pain medication. Msg sent to provider to order pain medication for patient. Patient aware.
[2024-03-15 20:49] LABS: Glucose, Whole Blood 113 mg/dL (60-115)
--- NOTE | 2024-03-15 21:11 | PC.NURSE ---
Pt poc-113 pt refused lantus insulin.
[2024-03-16 03:45] VITALS: BP 110/67; PULSE 86; RESP 18; TEMP 36.4; O2SAT 96
[2024-03-16] MEDS: Pantoprazole Sodium 20 MG TABLET.DR 40 MG PO (05:31)
[2024-03-16 07:17] VITALS: BP 125/77; PULSE 81; RESP 18; TEMP 36.2; O2SAT 95
[2024-03-16 07:28] LABS: Glucose, Whole Blood 159 mg/dL (60-115)
[2024-03-16] MEDS: glipiZIDE 10 MG TABLET PO (08:14)
[2024-03-16] MEDS: Insulin Lispro 100 UNIT/ML 3 ML VIAL SUBCUT (08:14)
[2024-03-16] MEDS: Insulin Glargine,Hum.rec.anlog 100 UNIT/ML 10 ML VIAL 23 UNIT SUBCUT (08:14)
[2024-03-16] MEDS: lisinopriL 2.5 MG TABLET PO (08:14)
[2024-03-16] MEDS: Clopidogrel Bisulfate 75 MG TABLET PO (08:14)
[2024-03-16] MEDS: Empagliflozin 10 MG TABLET PO (08:14)
[2024-03-16] MEDS: 0.9 % Sodium Chloride Flush 3 ML SYRINGE IVFLUSH (08:18)
--- NOTE | 2024-03-16 08:52 | HO.VASCPN ---
Subjective Subjective Date of Service: 03/16/24 Interval history: Mitchel is doing well this morning. He is waiting to go down and have a PICC line placed for outpatient IV Abx. He states his foot feels the same. He has been up and out of bed and using a boot to walk around. Physical Exam Vital Signs: Vital Signs: Last Vital Signs Temp 97.1 F 03/16/24 07:17 Pulse 81 03/16/24 07:17 Resp 18 03/16/24 07:17 BP 125/77 03/16/24 07:17 Pulse Ox 95 03/16/24 07:17 O2 Del Method Room Air 03/16/24 07:17 BMI result Body Mass Index 41.0 Const: General: comfortable and no acute distress Orientation/consciousness: patient oriented x3 HEENT: Ears: hearing grossly normal bilaterally Resp: Effort & Inspection: normal respiratory effort and able to speak in complete sentences Auscultation: clear to auscultation bilaterally Cardio: Rate: regular rate Rhythm: regular rhythm Heart sounds: S1 normal heart sound present and S2 normal heart sound present Bruits: no abdominal aortic bruits, no carotid bruits, no femoral bruits and no renal bruits GI: Palpation (GI): No Abdominal aortic bruit present Neuro: General: patient oriented x3 Cranial nerves: Yes CN's II-XII intact bilaterally Extrem: Other: Left foot in boot this morning. Progress Note: A&P Assessment and plan (1) PAD (peripheral artery disease): Status: Acute Assessment and Plan: Mitchel is stable from a vascular standpoint. We will have him follow up with us outpatient for further evaluation and treatment. He can continue with his current dressing changes and wear the boot. If there are any questions or concerns, please do not hesitate to reach out to us. Time Spent With Patient Time: Total time managing care of this patient today ___25_ minutes. Procedures Date of Service Date of Service: 03/16/24 Quality Stroke Does the patient have a stroke diagnosis?: No VTE Prior VTE?: No VTE Risk Level:: Medical - moderate - high VTE Device Contraindication: Treatment Not Indicated VTE Drug Contraindication: N/A - Med Ordered
[2024-03-16 11:26] VITALS: BP 147/82; PULSE 86; RESP 15; O2SAT 99
[2024-03-16 11:36] VITALS: BP 136/96; PULSE 88; RESP 14; O2SAT 98
[2024-03-16 11:46] VITALS: BP 142/87; PULSE 77; RESP 12; O2SAT 98
--- NOTE | 2024-03-16 11:50 | PM.PROC ---
Brief Operative Note Date of procedure: 03/16/24 Pre-op diagnosis: Needs medical secretary receptionist IV access for antibiotics Post-op diagnosis: other (Same, RUE DVT) Procedure: RUE PICC attempted however, wire would not pass centrally. Venogram demonstrates extensive clot throughout right subclavian vein. Given these findings, it was determined a Fraga would be most appropriate catheter. Right IJ 24 cm SL Fraga placed using US and FL. Tip at cavoatrial junction. Ok for use. Medical team was contacted regarding RUE DVT. They will start anticoagulation after placement of Fraga. Given the patient's lack of symtpoms (no arm edema or pain), no thrombectomy/thrombolysis is needed at this time.
[2024-03-16 11:56] VITALS: BP 131/93; PULSE 77; RESP 10; TEMP 36.2; O2SAT 98
[2024-03-16] MEDS: Heparin Sodium,Porcine Flush 500 UNIT/5 ML SYRINGE IVFLUSH (12:01)
[2024-03-16 12:52] LABS: Glucose, Whole Blood 182 mg/dL (60-115)
--- NOTE | 2024-03-16 13:06 | P.DS_ITS ---
DS: Providers Provider Date of Service: 03/16/24 Date of admission: 03/10/24 13:35 Date of discharge: 03/16/24 Primary care physician: Shreyas Da Silva MD Consults: 03/10/24 13:34 Consult to Vascular Surgery Routine Consulting Provider: [facility] [place] [place] Vascular Services Reason for consultation: Osteo left foot, hx of PAD 03/10/24 19:23 Consult to Wound Care Routine Reason for consultation: left foot wound Has provider been notified: No 03/11/24 10:13 Consult to General Surgery Routine Consulting Provider: Shreyas Davenport Reason for consultation: osteomylitis ? need ampuation 03/12/24 16:23 Consult to Infectious Diseases Routine Consulting Provider: [facility] [place] [place] Infectious Disease Center Reason for consultation: MRSA bacteremia Has provider been notified: No Attending physician on discharge: Radha Navarro Discharging clinician: Radha Navarro DS: Diagnosis Discharge Diagnosis (1) PAD (peripheral artery disease): Status: Acute DS: Summary Hospital Course Hospital Course: admission hpi Chief Complaint: Foot infection, fever Pt is a 58-year-old male with a PMH significant for HLD, insulin-dependent type 2 diabetes, peripheral vascular disease, hx of osteo, and RIGOBERTO not compliant with CPAP who presents to the ED with?fever and worsening left foot infection. Patient previously diagnosed with osteomyelitis in at [facility] and had amputation of left 5th digit. Was discharged on 6 weeks of vancomycin. Patient presented to the hospital here at [facility] [place] [place] on 01/08/2024 and treated for acute osteomyelitis of 4th metatarsal as well as possible 3rd metatarsal and was discharged again on 6 weeks of vancomycin. Patient follows with Dr. Gabriel at [facility] Podiatry and presented there yesterday for follow-up visit where patient had temperature of 101.4 degrees, and left foot was noted to be swollen and red after 8 was unwrapped. Wound was debrided and packed with iodine and patient was started on Bactrim p.o.. Patient's fever increased at home to 103.4 last night inpatient began taking Tylenol. This morning awoke and felt much worse with nausea, vomiting, and general malaise. Denies abdominal pain or diarrhea. No chest pain/pressure, palpitations. Denies shortness or breath or difficulty breathing. In the ED pt was tachycardic up to 122, hypertensive up to 142/72, and mildly elevated temp of 99.6 degrees. Labs were significant for leukocytosis of 15.4, ESR 88, CRP 35.55, sodium 133, glucose 392, lactic acid 2.2, and T bili of 1.9. X-ray of left foot concerning for cellulitis/osteomyelitis at proximal 4th and 5th metatarsals and lateral aspect of left foot. ?Left lower extremity venous duplex negative for DVT. Pt was treated with ondansetron, ceftriaxone, and vanco mycin. Pt will be admitted to the hospital for treatment and further evaluation of acute Hospital course: Acute osteomylitis of the left food, MRSA bacteremia: 58-year-old male with a history of hyperlipidemia, insulin-dependent type 2 diabetes, peripheral vascular disease, osteomyelitis, and MRSA bacteremia (completed 6 weeks of IV vancomycin on 02/18), as well as RIGOBERTO non-compliant with CPAP. He presented to the ED with fever and worsening left foot infection, and workup revealed osteomyelitis of the left foot associated with recurrent MRSA bacteremia. He was evaluated by surgery (Dr. Davenport), and due to the non-healing nature of the wound and bone, possible amputation was advised. However, the patient is not ready for amputation at this time and will explore this with his certified nutritionist on an outpatient basis. In the meantime, he opted for another course of IV antibiotics. Vancomycin was initiated but changed to daptomycin on 03/12 per ID recommendati ons, with a planned six-week course and weekly monitoring of CPK and CBC. Repeat blood cultures from 03/10 were negative at 48 hours. A PICC line was placed for home infusion of IV antibiotics. The patient was seen by vascular surgery (Dr. Caceres), which recommended possible outpatient vascular testing. I discussed the case with his certified nutritionist (Dr. Jhony Gabriel), who also advised amputation, but the patient again declined and prefers removal of the involved bone instead, to be addressed on an outpatient basis. An echocardiogram showed no evidence of endocarditis. Acute lactic acidosis: Secondary to sepsis; resolved. patient went for picc line where venogram found to have Extensive clot throughout right subclavian vein-start on eliquis( use 10 mg(2tabs) po bid until 03/22/24 , then switch to eliquis 5 mg po bid ( on 03/23/24) .hold plavix until on eliquis. Peripheral artery disease: hold Plavix until on eliquis plan: IV Daptomycin daily until 2024 Check CPK and CBC every week on Mondays while on daptomycin. extensive clot throughout right subclavian vein-start on eliquis( use 10 mg(2tabs) po bid until 03/22/24 , then switch to eliquis 5 mg po bid ( on 03/23/24) .hold plavix until on eliquis. Follow-up with your doctor in a week Ask your doctor to make infectious Disease follow-up will Norman Munoz inf ectious Disease. consider follow up outpatient with vascular . Stop taking Simvastatin until after you complete Daptomycin therapy. dm:lantus adjusted to 56 units at bedtime and 23 units daily. follow up pcp ,vascular surgery outpatient ,also consider hematology eval outpatient for dvt(new right subclavian-please see above). Please see wound care instructions in discharge instructions. Assessment and plan coordination time spent 40 minute. Above management discussed with the patient detail length he understand and in agreement with the plan. Time Attestation Total time managing care of this patient today: 40 mintues. Discharge Coordination Time (in mins): 40 min Quality: Safe Use of Opioids Does Pt have an Active Cancer Diagnosis on the Problem List?: No Quality: Stroke Does the patient have a stroke diagnosis?: No Physical Exam Vital Signs: Vital Signs: Last Vital Signs Temp 97.1 F 03/16/24 11:56 Pulse 77 03/16/24 11:56 Resp 10 L 03/16/24 11:56 BP 131/93 H 03/16/24 11:56 Pulse Ox 98 03/16/24 11:56 O2 Del Method Room Air 03/16/24 11:56 BMI result Body Mass Index 41.0 General: AO X 3, no acute distress Resp: CTA bilateral CVS: S1,S2,RRR GI: +BS, NT, no distention Skin: No rash MSK: wound dressing in place Neuro: motor grossly intact Psych: appropriate affect DS: Data Data Completed and Pending Completed studies during hospitalization [Text1]: Procedures Fluoroscopy of Aorta and Bilateral Lower Extremity Arteries (10/07/20) Insertion of Infusion Device into Superior Vena Cava, Percutaneous Approach (01/08/24) Ultrasonography of Superior Vena Cava, Guidance (01/08/24) Labs on day of discharge: Laboratory Results - last 24 hr 03/15/24 03/15/24 03/16/24 17:47 20:35 07:22 POC Glucose 109 113 159 H 03/16/24 12:47 POC Glucose 182 H Preliminary micro results at discharge 03/12/24 08:17 Blood Culture - Preliminary Blood - Venous No growth after 48 hours. 03/12/24 08:11 Blood Culture - Preliminary Blood - Venous No growth after 48 hours. Imaging Chest x-ray: Radiologist's impression: ITS Impressions Foot X-Ray 03/10/24 11:20 IMPRESSION: Concerning cellulitis/ osteomyelitis at the proximal fourth and fifth metatarsals and lateral aspect of the left foot. Electronically signed by: Rafael Dias MD 03/10/2024 12:29 PM EST RP Venous Duplex 03/10/24 11:49 IMPRESSION: No evidence of deep venous thrombosis involving the left lower extremity. Electronically signed by: Mitchel Carrizales MD 03/10/2024 12:20 PM EST RP Chest X-Ray 03/15/24 15:45 IMPRESSION: Unremarkable examination. Electronically signed by: William Wolf MD 03/15/2024 06:18 PM EST RP Discharge Plan Discharge Anticipated Discharge Date/Time: 03/15/24 16:39 Patient Disposition: Home, Self-Care Discharge Diagnosis: MRSA bacteremia, osteomylitis of the foot, diabetic foot ulcer, dvt right subclavian Referrals: [facility] [Other] - 1 Week (HOME INFUSION SERVICES FOR IV MEDICATION/SUPPLIES) [facility] [Outside] - 3-5 Days (RESUMPTION OF HOME CARE SERVICES: A NURSE WILL CALL YOU TO SET UP RESUMPTION VISIT) Shreyas Da Silva MD [Primary Care Provider] - 1 Week Wilbur Caceres MD [Physician] - 1 Week Discharge Medications: New daptomycin 500 mg Recon Soln 1,000 mg IV Q24H Qty: 38 0RF Eliquis 5 mg Tablet 10 mg PO BID Qty: 90 0RF Rx Instructions: take eliquis 10 mg(2 tabs ) po bid until 03/22/24 then switch to eliquis 5 mg po bid ( on 03/23/24). oxycodone 5 mg capsule 5 mg PO BID PRN (Reason: pain (scale score 4-6)) Qty: 10 0RF Rx Instructions: Partial Fill upon patient request. Continued (DME) blood sugar diagnostic Strip See Rx Instructions .Route Qty: 50 6RF Rx Instructions: As directed (DME) FreeStyle Test Strip MISCELLANEOUS Jardiance 10 mg tablet 10 mg PO DAILY omeprazole 20 mg capsule,delayed release(DR/EC) 20 mg PO BID@0630,1630 Ozempic 0.25 mg or 0.5 mg (2 mg/3 mL) pen injector 2 mg subcut SA metformin 1,000 mg tablet 1,000 mg PO BID glipizide 10 mg tablet 10 mg PO BID lisinopril 2.5 mg tablet 2.5 mg PO DAILY Changed insulin glargine [Basaglar KwikPen U-100 Insulin] 100 unit/mL (3 mL) insulin pen 56 unit subcut BEDTIME Qty: 15 0RF insulin glargine [Basaglar KwikPen U-100 Insulin] 100 unit/mL (3 mL) insulin pen 23 unit subcut DAILY Qty: 15 0RF Held clopidogrel 75 mg tablet 1 tab PO DAILY Hold Instructions: Resume on 04/21/24. simvastatin 40 mg tablet 40 mg PO DAILY@1900 Hold Instructions: Resume on 04/27/24. Discontinued sulfamethoxazole-trimethoprim 800-160 mg tablet 1 tab PO BID Discharge Orders: Discharge Order (Routine); Ordered 03/15/24 Ordered By: Abimael Lambert Diet: Diabetic diet Activity on Discharge: As tolerated Stand Alone Forms: Patient Portal Discharge page Print Language: Arabic Activity Restrictions/Additional Instructions: Topical Wound Care Recommendations: 1. Maintain blood glucose levels per Providers order. Blood glucose control will be important in healing. 2. Left Plantar Wound - Cleanse and Irrigate with NS, apply skin prep to periwound allow to dry. Lightly pack wound bed with gauze strip packing, be sure to leave wick for easy removal, cover with dry gauze, ABD and wrap. Change daily. Recommend Dr. Caceres Vascular Surgeon for outpatient follow up.? His office is located at [address] [place] [address] [address], [place] [address], call for an appointment at time of discharge [phone] Care Plan Goals: resolution of MRSA bacteremia and Osteomylitis of the foot Health Concerns: MRSA bacteremia, osteomyelitis of the foot, diabetic foot ulcer Plan of Treatment: IV Daptomycin daily until 2024 Check CPK and CBC every week on Mondays while on daptomycin. extensive clot throughout right subclavian vein-start on eliquis( use 10 mg(2tabs) po bid until 03/22/24 , then switch to eliquis 5 mg po bid ( on 03/23/24) .hold plavix until on eliquis. Follow-up with your doctor in a week Ask your doctor to make infectious Disease follow-up will Norman Munoz infectious Disease. consider follow up outpatient with vascular . Stop taking Simvastatin until after you complete Daptomycin therapy Assessment: See above Discharge Date/Time: 03/16/24 14:46
--- NOTE | 2024-03-16 13:33 | W.MHC.F2F ---
Service Date Service Date: 03/16/24 Encounter Date of encounter: 03/16/24 Encounter: dvt , acute osteomyelitis. Reasons for Services Signs and symptoms assessed: Any new fever, arm pain or new symptoms. Reason for nursing home: medication management, medication treatment and teach disease management MD Overseeing Care: Shreyas Da Silva Homebound: Leaving the home is medically contraindicated at this time without the asist of a device and/or another person due th the listed conditions above and below. Reason homebound: weakness related to hospital stay Homebound supporting statement: Patient is generalized weak with multiple comorbidities including acute osteomyelitis, and acute DVT right subclavian-need long-term antibiotics, help with lab draws, appointments, medical management. Certification: Based on the above findings, I certify that this patient is confined to the home and needs intermittent nursing home care, physical therapy and/or speech therapy, or continues to need occupational therapy. The patient is under my care, and I have initiated the establishment of the plan of care. The patient will be followed by a physician who will periodically review the plan of care. Time Spent With Patient Time: Total time managing care of this patient today ____ minutes.
--- NOTE | 2024-03-16 13:46 | MHC.CM.PN ---
Second IMM given 03/16. Pt is medically cleared for discharge home with resumption of previous [facility] and [facility] home infusion services. Pts daughter will transport him home.
[2024-03-16] MEDS: Apixaban 5 MG TABLET 10 MG PO (14:05)
--- NOTE | 2024-03-16 14:48 | PC.NURSE ---
Pt did not want to wait for narc script. Script faxed to [facility] in [place] at this time.
== END 2024-03-16 14:46 | disposition home or self-care (01) | DRG 872 ==
LOC: HO.ED 11:56 → HO.EDOVER 13:45 → HO.S3 17:17
PROVIDERS: Hospitalist; Internal Medicine; Physician Assistant Surgical; Registered Nurse Emergency; Admitting Provider Student in an Organized Health Care Education/Training Program; Emergency Provider Emergency Medicine; PCP Internal Medicine; Visit Provider Internal Medicine
DX: A41.9 Sepsis, unspecified organism (principal); M86.172 Other acute osteomyelitis, left ankle and foot; L97.429 Non-pressure chronic ulcer of left heel and midfoot with unspecified severity; E87.21 Acute metabolic acidosis; Z68.41 Body mass index [BMI] 40.0-44.9, adult; G47.33 Obstructive sleep apnea (adult) (pediatric); E11.69 Type 2 diabetes mellitus with other specified complication; E78.5 Hyperlipidemia, unspecified; I70.244 Atherosclerosis of native arteries of left leg with ulceration of heel and midfoot; E11.51 Type 2 diabetes mellitus with diabetic peripheral angiopathy without gangrene; B95.62 Methicillin resistant Staphylococcus aureus infection as the cause of diseases classified elsewhere; E66.01 Morbid (severe) obesity due to excess calories; Z71.3 Dietary counseling and surveillance; E11.65 Type 2 diabetes mellitus with hyperglycemia; Z87.891 Personal history of nicotine dependence; Z91.199 Patient's noncompliance with other medical treatment and regimen due to unspecified reason; Z86.14 Personal history of Methicillin resistant Staphylococcus aureus infection; Z79.4 Long term (current) use of insulin; Z79.02 Long term (current) use of antithrombotics/antiplatelets; Z79.84 Long term (current) use of oral hypoglycemic drugs; Z79.85 Long-term (current) use of injectable non-insulin antidiabetic drugs; Z79.899 Other long term (current) drug therapy
CPT/HCPCS: 36415; 36558; 71045; 73630; 75820; 80048; 80053; 80202; 82550; 82565; 82947; 83605; 85025; 85027; 85652; 86140; 87040; 87077; 87147; 87186; 87205; 93306; 93971; 99285; C1751; C1769; J0696; J0878; J1642; J1650; J2405; J3370; J3371; J7120

== ENCOUNTER → 2024-03-10 11:20 | Outpatient (BNV) | payer MEDICARE, SELFPAY | PROVIDERS: Emergency Provider Emergency Medicine; PCP Internal Medicine; Visit Provider Radiology Diagnostic Radiology | DX: L03.116 Cellulitis of left lower limb (principal) | CPT/HCPCS: 73630 ==

== ENCOUNTER 2024-03-10 13:35 | Outpatient (BNV) | payer MEDICARE, SELFPAY | END 2024-03-15 07:00 | PROVIDERS: Admitting Provider Student in an Organized Health Care Education/Training Program; Emergency Provider Emergency Medicine; PCP Internal Medicine; Visit Provider Internal Medicine | DX: I51.89 Other ill-defined heart diseases (principal); R78.81 Bacteremia | CPT/HCPCS: 93306 ==

== ENCOUNTER 2024-03-10 13:35 | Outpatient (BNV) | payer MEDICARE, SELFPAY | END 2024-03-16 11:00 | PROVIDERS: Admitting Provider Student in an Organized Health Care Education/Training Program; Emergency Provider Emergency Medicine; PCP Internal Medicine; Visit Provider Physician Assistant Surgical | DX: I82.621 Acute embolism and thrombosis of deep veins of right upper extremity (principal) | CPT/HCPCS: 36558; 76937 ==

== ENCOUNTER → 2024-03-10 13:35 | Outpatient (BNV) | payer MEDICARE, SELFPAY | PROVIDERS: Admitting Provider Student in an Organized Health Care Education/Training Program; Emergency Provider Emergency Medicine; PCP Internal Medicine; Visit Provider Internal Medicine | DX: R78.81 Bacteremia (principal); B95.62 Methicillin resistant Staphylococcus aureus infection as the cause of diseases classified elsewhere; M86.9 Osteomyelitis, unspecified; M86.172 Other acute osteomyelitis, left ankle and foot | CPT/HCPCS: 99222; 99499 ==

== ENCOUNTER → 2024-03-10 13:35 | Outpatient (BNV) | payer MEDICARE, SELFPAY | PROVIDERS: Admitting Provider Student in an Organized Health Care Education/Training Program; Emergency Provider Emergency Medicine; PCP Internal Medicine; Visit Provider Physician Assistant Surgical | DX: L03.116 Cellulitis of left lower limb (principal) | CPT/HCPCS: 99222; 99232 ==

== ENCOUNTER → 2024-03-10 13:35 | Outpatient (BNV) | payer MEDICARE, SELFPAY | PROVIDERS: Admitting Provider Student in an Organized Health Care Education/Training Program; Emergency Provider Emergency Medicine; PCP Internal Medicine; Visit Provider Surgery | DX: M86.172 Other acute osteomyelitis, left ankle and foot (principal) | CPT/HCPCS: 99222 ==

== ENCOUNTER → 2024-03-10 13:35 | Outpatient (BNV) | payer MEDICARE, SELFPAY | PROVIDERS: Admitting Provider Student in an Organized Health Care Education/Training Program; Emergency Provider Emergency Medicine; PCP Internal Medicine; Visit Provider Student in an Organized Health Care Education/Training Program | DX: I73.9 Peripheral vascular disease, unspecified (principal); E11.621 Type 2 diabetes mellitus with foot ulcer; R78.81 Bacteremia | CPT/HCPCS: 99223; 99232; 99239; G0180 ==

== ENCOUNTER → 2024-05-06 08:46 | Outpatient (BNV) | payer MEDICARE, SELFPAY | PROVIDERS: PCP Internal Medicine; Visit Provider Physician Assistant Surgical | DX: Z45.2 Encounter for adjustment and management of vascular access device (principal) | CPT/HCPCS: 36589 ==

== ENCOUNTER 2024-05-18 07:32 | Outpatient (REF) | payer MEDICARE, SELFPAY ==
--- OUTSIDE RECORDS SUMMARY | 2024-05-18 07:41 | XMS_ITS | Encounter Summary ---
Author Organization [facility] Address [address] [place] [address] Care Team Providers Care [employer] Manager Name Role Phone Shreyas Da Silva MD Primary Care Provider [phone] Reason for Visit * Reason Comments Foot Pain Chronic osteomyeliti s of left foot (CMS/HCC)Dehiscence of operative wound, subsequent encounterUlcer of left heel, with fat layer exposed (CMS/HCC Encounter Details Date Type Department Care Team (Late st Contact Info) Description 05/10/2024 9:15 AM EST Office Visit Orthopedic Surgery - [place] [address] [id number] Gato Gabriel, [address] [facility] Ronnie [address] [place] [id number] Controlled type 2 diabetes mellitus with diabetic polyneuropathy, without long-term current use of insulin ([facility]) (Primary Dx); History of amputation of left foot through metatarsal bone (CMS/[facility]); Charcot foot due to diabetes mellitus (CMS/HCC); Onychomycosis; Callus; Localized edema Social History Tobacco Use Types Packs/Day Years Used Date Smoking Tobacco: Former Cigarettes Passive Smoke Exposure: Past Smokeless Tobacco: Never Tobacco Cessation:Counseling Given: Not Answered Alcohol Use Standard Drinks/Week Comments No 0 (1 standard drink = 0.6 oz pur e alcohol) Sex and Gender Information Value Date Recorded Sex Assigned at Male 03/25/2024 5:25 PM EST Gender Identity Male 03/25/2024 5:25 PM EST Sexual Orientation Straight 03/25/2024 5: 25 PM EST Job Start Date Occupation Industry Not on file Not on file Not on file documented as of this encounter Last Filed Vital Signs Vital Sign Reading Time Taken Comments Blood Pressure - - Pulse - - Temperature - - Respiratory Rate - - Oxygen Saturation - - Inhaled Oxygen Concentration - - Weight 133 kg (294 lb) 05/10/2024 9:14 AM EST Height 182.9 cm (6' 0.01 ) 05/10/2024 9:14 AM ES T Body Mass Index 39.86 05/10/2024 9:14 AM EST documented in this encounter Progress Notes * Gato Gabriel DPM - 05/10/2024 9:15 AM EST Referring MD: Avinash Last PCP visit: 12/09/2023 IDENTIFIER: @TITLE@ Demetria is a 58 y.o. year old male who presents for consultation. CC: Left foot ulceration HPI: 58-year-old diabetic male returns office status post removal of exostosis from the left foot. Patient has gone without a dressing and has been using the cam boot during the previous week. Patient notes that he has had no increased redness or drainage coming from the area. Patient is happy with the progress. Patient notes that he does not have new Plastizote inserts that have been developed since he has had multiple amputation and bone debridements. ROS: GENERAL: Pt denies nausea, fever, vomiting, chills, or shortness of breath. Pt in NAD. CARDIOLOGY: pt denies chest pain, palpitations LUNGS: pt denies shortness of breath MUSCULOSKELETAL: See HPI, otherwise no joint pain or swelling, back pain, or muscle pain. SKIN: see HPI, otherwise no lesions, rash or itching NEURO: No persistent headache, weakness or numbness The remainder of the review of systems is noncontributory PAST MEDICAL HISTORY: Patient Active Problem List Diagnosis Hyperlipidemia Morbid obesity (CMS/HCC) Sleep apnea Type 2 diabetes mellitus (CMS/HCC) Chronic osteomyelitis of left foot (CMS/HCC) Exostosis of left foot SOCIAL HISTORY: Social History Tobacco Use Smoking status: Former Types: Cigarettes Passive exposure: Past Smokeless tobacco: Never Substance Use Topics Alcohol use: No ACTIVE MEDICATIONS: Outpatient Medications Marked as Taking for the 05/10/24 encounter (Office Visit) with Gato Gabriel DPM Medication Sig Dispense Refill apixaban (ELIQUIS) 5 mg tablet Take 1 tablet (5 mg total) by mouth 2 (two) times a day. blood glucose control, normal (Glucose Control) solution Use to calibrate glucometer blood-glucose meter kit 1 Device by Does not apply route. Use daily to blood sugars daily DAPTOmycin in 0.9 % sod chlor 1,000 mg/100 mL piggyback Infuse 4 mg/kg into a venous catheter 1 (one) time each day. empagliflozin (Jardiance) 10 mg tablet Take 1 tablet (10 mg total) by mouth 1 (one) time each day. glipiZIDE (GLUCOTROL) 10 mg tablet Take 1 tablet (10 mg total) by mouth 2 (two) times a day before meals. insulin glargine,hum.rec.anlog (BASAGLAR KWIKPEN U-100 INSULIN SUBQ) Inject 80 Units under the skinat bedtime. insulin glargine,hum.rec.anlog (BASAGLAR KWIKPEN U-100 INSULIN SUBQ) Inject 30 Units under the skin1 (one) time each day. lancets lancets 1 Strip daily. lisinopriL (PRINIVIL,ZESTRIL) 2.5 mg tablet Take 1 tablet (2.5 mg total) by mouth 1 (one) time eachday. metFORMIN (FORTAMET) 1,000 mg 24 hr tablet Take 1 tablet (1,000 mg total) by mouth 2 (two) times a day. Do not crush, chew, or split. semaglutide (OZEMPIC) 2 mg/dose (8 mg/3 mL) injection pen Inject 2 mg under the skin every 7 (seven) days. ALLERGIES: @ALL@ PHYSICAL EXAM: Height 1.829 m (72.01 ), weight 133 kg (294 lb). PODIATRIC EXAMINATION: GENERAL: Patient appears well nourished, with NAD. VASCULAR: Dorsalis pedis pulses are 1/4 bilaterally and Posterior tibial pulses are 2/4 bilaterally. Capillary filling time within normal limits the digits. No pallor on elevation or rubor on dependency. Positive hair growth. No varicosities. Denies rest pain or claudication pain. NEUROLOGICAL: Sharp/dull sensation diminished, protective sensation diminished on [place]. Multipleperipheral rhombus bilaterally ORTHOPEDIC: Good muscle strength 5/5 of all flexors and extensors. Dorsi flexion of ankle ,10 degrees, plantar flexion WNL. No muscle atrophy. 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 Charcot arthropathy of the left foot DERMATOLOGICAL:.No new openings or redness. Scar tissue has continued to resolve to the lateral aspect of the left foot. BIOMECHANICS: STJ ROM wnl, MTJ ROM wnl, 1st MPJ ROM wnl. IMAGING: Imaging: Notable Charcot breakdown of the midtarsal joint with medial displacement. Some concern for heterotopic bone formation at the resected base of the fourth metatarsal. IMPRESSION: 1. Controlled type 2 diabetes mellitus with diabetic polyneuropathy, without long-term current use of insulin ([facility]) 2. History of amputation of left foot through metatarsal bone ([facility]) 3. Charcot foot due to diabetes mellitus ([facility]) 4. Onychomycosis 5. Callus 6. Localized edema PLAN: Pt was seen and examined, history reviewed. Patient's wound to the left lateral foot continues to stay healed. Patient requires updated Plastizote inserts. New prescription was given for a Plastizote insert with a lateral flange to left foot and a toe filler. Patient was also given a prescription for carbon fiber gait plates to decrease forefoot pressure and when ambulating. Patient will start using his old diabetic shoe with Plastizote insert over the next week and will return in 2 weeks for site check Patient was given a prescription for diabetic shoes with 3 sets of custom Plastizote inserts to allow for proper and safe ambulation and decrease chances of future ulceration Gato Gabriel DPM documented in this encounter Plan of Treatment Upcoming Encounters Date Type Department Care Team (Late st Contact Info) Description 05/24/2024 9:00 AM EST Office Visit Orthopedic Surgery - [place] [address] [phone] Gato Gabriel DPM [address] [id number] documented as of this encounter Visit Diagnoses Diagnosis Controlled type 2 diabetes mellitus with diabetic polyneuropathy, without long- term current use of insulin ([facility])- Primary History of amputation of left foot through metatarsal bone ([facility]) Charcot foot due to diabetes mellitus ([facility]) Onychomycosis Dermatophytosis of nail Callus Corns and callosities Localized edema Edema documented in this encounter Orders General Supply Count Last Ordered Date First Or dered Date DIABETIC CUSTOM MOLDED SHOE WITH INSERTS 1 05/10/2024 documented in this encounter Care Teams [employer] Relationship Specialty Start Date End Date Shreyas Da Silva MD [address] [place] [address] Dr Sheila MA PCP - General 11/04/23 documented as of this encounter
--- OUTSIDE RECORDS SUMMARY | 2024-05-18 07:41 | XMS_ITS | Encounter Summary ---
[facility] Organization [facility] Address [address] [place] [address] Care Team Providers Care [employer] Truck Driver Name Role Phone Shreyas Da Silva MD Primary Care Provider [phone] Reason for Visit * Reason Comments Foot Pain A1c- 8.2 11/30/23Chro honorio osteomyelitis of left foot (CMS/HCC)Dehiscence of operative wound, subsequent encounterUlcer of left heel, with fat layer exposed (CMS/HCC Encounter Details Date Type Department Care Team (Late st Contact Info) Description 04/20/2024 8:30 AM EST Office Visit Orthopedic Surgery - [place] [address] [facility] [address] [place] [phone] Gato Gabriel, DPM 175 [facility] [address] [place] [id number] Dehiscence of operative wound, subsequent encounter (Primary Dx); Ulcer of left heel, with fat layer exposed (CMS/HCC) Social History Tobacco Use Types Packs/Day Years [...] - - Weight 133 kg (294 lb) 04/20/2024 8:22 AM EST Height 182.9 cm (6' 0.01 ) 04/20/2024 8:22 AM ES T Body Mass Index 39.86 04/20/2024 8:22 AM EST documented in this encounter Progress Notes * Gato Gabriel DPM - 04/20/2024 8:30 AM EST Referring MD: Avinash Last PCP visit: 12/09/2023 IDENTIFIER: @TITLE@ Demetria is a 58 y.o. year old male who presents for consultation. CC: Left foot ulceration HPI: 58-year-old male returns office 3 week status post removal of exostosis from the left foot. Patienthas been on and off again weightbearing to the left foot in a offloading cam boot. Patient is kept the dressing clean dry and intact to left foot. Patient continues to receive daptomycin IV. Patient denies fever nausea vomit shortness of breath ROS: GENERAL: Pt denies nausea, fever, vomiting, [...] Outpatient Medications Marked as Taking for the 04/20/24 encounter (Office Visit) with Gato Gabriel DPM Medication Sig Dispense Refill acetaminophen (Tylenol 8 Hour) 650 mg 8 hr tablet Take 1 tablet (650 mg total) by mouth every 8 (eight) hours if needed for mild pain. Do not crush, chew, or split. 90 tablet 0 apixaban (ELIQUIS) 5 mg tablet Take 1 [...] Sharp/dull sensation diminished, protective sensation diminished on [place]. Multipleperipheral rhombus bilaterally ORTHOPEDIC: Good muscle strength 5/5 of all flexors and extensors. Dorsi flexion of ankle ,10 degrees, plantar flexion WNL. No muscle atrophy. 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 Charcot arthropathy of the left foot DERMATOLOGICAL:.Wound to the plantar aspect of the foot has healed Wound dehiscence to the lateral aspect of the foot at the surgical site distally. 1 cm has healed well 2 cm remain dehisced. Sutures are not well coapted or holding skin together. Wound extends into the subcutaneous tissue with fibrotic tissue throughout and serous drainage. Some malodor. Periwound erythema that is not streaking or extending proximally BIOMECHANICS: STJ ROM wnl, MTJ ROM wnl, 1st MPJ ROM wnl. IMAGING: Imaging: Notable Charcot breakdown of the midtarsal joint with medial displacement. Some concern for heterotopic bone formation at the resected base of the fourth metatarsal. IMPRESSION: 1. Dehiscence of operative wound, subsequent encounter 2. Ulcer of left heel, with fat layer exposed (CMS/HCC) PLAN: Pt was seen and examined, history reviewed. Patient's left foot shows lateral surgical wound dehiscence. Wound required debridement as described below. Patient was dressed with an offloading U pad and Betadine DSD. Patient structured to continue with dressing changes every other day. Patient instructed to finish course of IV antibiotics. Patient will be reevaluated next week for possible increase or change in antibiotics Open wound selective debridement of devitalized soft tissue, fibrin, epidermis, dermis, thru skin and subcutaneous tissue, first 20 sq cm or less, using sterile sharp dissection #15 scalpel blade of the left foot wound dehiscence. Pt. deferred anesthesia. . Devitalized tissue was not sent to pathology. Gato Gabriel DPM documented in this encounter Plan of Treatment Upcoming Encounters Date Type Department Care Team (Late st Contact Info) Description 05/24/2024 9:00 AM EST Office Visit Orthopedic Surgery - [place] [address] [phone] Gato Gabriel DPM [address] [address] documented as of this encounter Visit Diagnoses Diagnosis Dehiscence of operative wound, subsequent encounter- Primary Ulcer of left heel, with fat layer exposed (CMS/HCC) documented in this encounter Care Teams [employer] Truck Driver Relationship Specialty Start Date End Date Shreyas Da Silva MD [address] [place] [address] Dr Sheila MA PCP - General 11/04/23 documented as of this encounter
--- OUTSIDE RECORDS SUMMARY | 2024-05-18 07:41 | XMS_ITS | Encounter Summary ---
[facility] Address [address] [place] [address] Care Team Providers Care Customer Relations Assistant Name Role Phone Shreyas Da Silva MD Primary Care Provider [phone] Reason for Visit * Reason Comments Foot Pain Chronic osteomyeliti s of left foot (CMS/HCC)Dehiscence of operative wound, subsequent encounterUlcer of left heel, with fat layer exposed (CMS/HCC Encounter Details Date Type Department Care Team (Latest Contact Info) Description 05/03/2024 8:30 AM EST Office Visit Orthopedic Surgery - [place] [address] [phone] Gato Gabriel, DPM [address] [address] Postoperative state (Primary Dx) Social History Tobacco Use Types Packs/Day Years [...] - - Weight 133 kg (294 lb) 05/03/2024 8:44 AM EST Height 182.9 cm (6' 0.01 ) 05/03/2024 8:44 AM ES T Body Mass Index 39.86 05/03/2024 8:44 AM EST documented in this encounter Progress Notes * Gato Gabriel DPM - 05/03/2024 8:30 AM EST Referring MD: Avinash Last PCP visit: 12/09/2023 IDENTIFIER: @TITLE@ Demetria is a 58 y.o. year old male who presents for consultation. CC: Left foot ulceration HPI: 58-year-old male returns office for week status post removal of exostosis from the left foot. Patient has been on and off again weightbearing to the left foot in a offloading cam boot. Patient is kept the dressing clean dry and intact to left foot. Patient is no longer on antibiotics. Patient relates that he recently had some vomiting but denies fever chills shortness of breath or nausea ROS: GENERAL: Pt denies nausea, fever, vomiting, [...] Active Problem List Diagnosis Hyperlipidemia Morbid obesity ([facility]) Sleep apnea Type 2 diabetes mellitus ([facility]) Chronic osteomyelitis of left foot ([facility]) Exostosis of left foot SOCIAL HISTORY: Social History Tobacco Use Smoking status: Former Types: Cigarettes Passive exposure: Past Smokeless tobacco: Never Substance Use Topics Alcohol use: No ACTIVE MEDICATIONS: Outpatient Medications Marked as Taking for the 05/03/24 encounter (Office Visit) with Gato Gabriel DPM [...] Sharp/dull sensation diminished, protective sensation diminished on [place]. Multipleperipheral rhombus bilaterally ORTHOPEDIC: Good muscle strength 5/5 of all flexors and extensors. Dorsi flexion of ankle ,10 degrees, plantar flexion WNL. No muscle atrophy. 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 Charcot arthropathy of the left foot DERMATOLOGICAL:.Wound appears to be close to the plantar aspect of the foot. Incision line to the lateral aspect of the foot is closed as well. Some erythema about the lateral aspect of the foot without concern for infection. No fluctuance no drainage. BIOMECHANICS: STJ ROM wnl, MTJ ROM wnl, 1st MPJ ROM wnl. IMAGING: Imaging: Notable Charcot breakdown of the midtarsal joint with medial displacement. Some concern for heterotopic bone formation at the resected base of the fourth metatarsal. IMPRESSION: 1. Postoperative state PLAN: Pt was seen and examined, history reviewed. Patient's surgical site appears to have closed and healed. Patient placed in a Umang bandage and instructed to use offloading cam boot for the next week. Patient will return after using an offloading pad on the foot for reevaluation. If patient remains closed we will consider a prescription to follow-up with the cable tool operator and create a Plastizote insert with a lateral flange in order to put the footinto a rectus position to decrease pressure on the bony prominences Gato Gabriel DPM documented in this encounter Plan of Treatment Upcoming Encounters Date Type Department Care Team (Late st Contact Info) Description 05/24/2024 9:00 AM EST Office Visit Orthopedic Surgery - [place] [phone] [phone] Gato Gabriel DPM [address] [phone] documented as of this encounter Visit Diagnoses Diagnosis Postoperative state- Primary Other postprocedural status documented in this encounter Care Teams Customer Relations Assistant Relationship Specialty Start Date End Date Shreyas Da Silva MD [address] [place] [address] Dr Trujillo [facility] ISIDRO Sifuentes PCP - General 11/04/23 documented as of this encounter
--- OUTSIDE RECORDS SUMMARY | 2024-05-18 07:41 | XMS_ITS | Clinical Summary ---
Author Organization 175 [facility] Address [address] [place] [address] Phone Care Team Providers Care [employer] Name Role Phone Shreyas Da Silva MD Primary Care Provider [phone] Allergies Active Allergy Reactions Criticality Noted Date Comments Penicillins Unknown Low 11/11/2023 Childhood-unknown rxn Medications Medication Sig Dispensed Refills Start Date End Date Status blood-glucose meter kit 1 Device by Does not apply route. Use daily to blood sugars daily 08/31/2010 Active blood glucose control, normal (Glucose Control) solution Use to calibrate glucometer 08/14/2010 Active lancets lancets 1 Strip daily. 08/14/2010 Activ e DAPTOmycin in 0.9 % sod chlor 1,000 mg/100 mL piggyback Infuse 4 mg/kg into a venous catheter 1 (one) time each day. Active apixaban (ELIQUIS) 5 mg tablet Take 1 tablet (5 mg total) by mouth 2 (two) times a day. Active lisinopriL (PRINIVIL,ZESTRIL) 2.5 mg tablet Take 1 tablet (2.5 mg total) by mouth 1 (one) time each day. Active metFORMIN (FORTAMET) 1,000 mg 24 hr tablet Take 1 tablet (1,000 mg total) by mouth 2 (two) times a day. Do not crush, chew, or split. Active glipiZIDE (GLUCOTROL) 10 mg tablet Take 1 tablet (10 mg total) by mouth 2 (two) times a day before meals. Active insulin glargine,hum.rec.a nlog (BASAGLAR KWIKPEN U-100 INSULIN SUBQ) Inject 80 Units under the skin at bedtime. 10/15/2022 Active insulin glargine,hum.rec.a nlog (BASAGLAR KWIKPEN U-100 INSULIN SUBQ) Inject 30 Units under the skin 1 (one) time each day. Active semaglutide (OZEMPIC) 2 mg/dose (8 mg/3 mL) injection pen Inject 2 mg under the skin every 7 (seven) days. Active empagliflozin (Jardiance) 10 mg tablet Take 1 tablet (10 mg total) by mouth 1 (one) time each day. Active acetaminophen (Tylenol 8 Hour) 650 mg 8 hr tablet Take 1 tablet (650 mg total) by mouth every 8 (eight) hours if needed for mild pain. Do not crush, chew, or split. 90 tablet 04/02/2024 05/02/2024 Active Problems Problem Noted Date Diagnosed Date Chronic osteomyelitis of left foot 03/22/2024 Exostosis of left foot 03/22/2024 Hyperlipidemia 08/14/2010 Morbid obesity 08/14/2010 Type 2 diabetes mellitus 08/14/2010 Sleep apnea 07/31/2010 Encounters Date Type Department Care Team Description 05/10/2024 9:15 AM EST Office Visit Orthopedic Surgery [place] [address] [phone] Gato Gabriel DPM Controlled type 2 diabetes mellitus with diabetic polyneuropathy, without long-term current use of insulin ([facility]) (Primary Dx); History of amputation of left foot through metatarsal bone ([facility]); Charcot foot due to diabetes mellitus ([facility]); Onychomycosis; Callus; Localized edema 05/03/2024 8:30 AM EST Office Visit Orthopedic Surgery [facility] [address] [phone] Gato Gabriel DPM Postoperative state (Primary Dx) 04/26/2024 10:30 AM EST Office Visit Orthopedic Surgery [facility] [address] [address] Gato Gabriel DPM Dehiscence of operative wound, subsequent encounter (Primary Dx); Ulcer of left heel, with fat layer exposed (CMS/HCC) 04/20/2024 8:30 AM EST Office Visit Orthopedic Surgery [facility] [address] [phone] Gato Gabriel DPM Dehiscence of operative wound, subsequent encounter (Primary Dx); Ulcer of left heel, with fat layer exposed (CMS/HCC) 04/08/2024 8:30 AM EST Office Visit Orthopedic Surgery [place] [address] [address] Gato Gabriel DPM Postoperative state (Primary Dx) 04/02/2024 7:30 AM EST Anesthesia Event [facility] OR [address] [place] [phone] [facility]rice Godinez MD [facility] 04/02/2024 7:30 AM EST - 04/02/2024 9:00 AM EST Surgery [facility] OR [address] [place] [phone] Gato Gabriel DPM EXCISION BONE SPUR LEFT LOWER EXTREMITY [21659 (CPT??)] 04/02/2024 6:00 AM EST - 04/02/2024 9:48 AM EST Hospital Encounter [facility] OR [address] [place] [phone] Gato Gabriel DPM Chronic osteomyelitis of left foot (CMS/HCC); Exostosis of left foot Discharge Disposition: Home or Self Care 03/29/2024 9:00 AM EST Office Visit Orthopedic Surgery [place] [address] [address] Gato Gabriel DPM Chronic osteomyelitis of left foot (CMS/HCC) (Primary Dx); Dehiscence of operative wound, subsequent encounter; Cellulitis of left foot; Midfoot ulceration, left, with necrosis of muscle (CMS/HCC) 03/22/2024 8:30 AM EST Office Visit Orthopedic Surgery [place] [address] [phone] Gato Gabriel DPM Left foot pain (Primary Dx); Chronic osteomyelitis of left foot (CMS/HCC); Dehiscence of operative wound, subsequent encounter; Ulcer of left heel, with fat layer exposed (CMS/HCC); Exostosis of left foot 03/12/2024 Telephone Orthopedic Surgery [facility] [address] [phone] Gato Gabriel DPM 03/09/2024 1:45 PM EST Office Visit Orthopedic Surgery [facility] [address] [phone] Gato Gabriel DPM Left foot pain (Primary Dx); Dehiscence of operative wound, subsequent encounter; Chronic osteomyelitis of left foot (CMS/HCC); Cellulitis of left foot; 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, left, with necrosis of bone (CMS/HCC) 03/02/2024 9:00 AM EST Office Visit Orthopedic Surgery [facility] [address] [address] Gato Gabriel DPM Chronic osteomyelitis of left foot (CMS/HCC) (Primary Dx); Dehiscence of operative wound, subsequent encounter; Ulcer of left heel, with fat layer exposed (CMS/HCC) 02/25/2024 10:15 AM EST Office Visit Orthopedic Surgery [place] [address] [address] Gato Gabriel DPM Chronic osteomyelitis of left foot (CMS/HCC) (Primary Dx); Dehiscence of operative wound, subsequent encounter; Ulcer of left heel, with fat layer exposed (CMS/HCC) from Last 3 Months Immunizations Name Administration Dates Next Due Tdap Tetanus diptheria acell ular pertussis (Boostrix; Adacel) 7yo and older 07/31/2010 Surgical History Surgery Date Site/Laterality Comments HERNIA REPAIR R -03/18/01 PROCEDURE: REPAIR INGUINAL HERNIA SMALL INTESTINE SURGERY STENT PERIPHERAL VASCULAR Left CALF FOOT TENDON SURGERY Left BONE CURETTAGE Left FOOT BONE EXOSTOSIS EXCISION Left FOOT Medical History Medical History Date Comments Sleep apnea 07/31/2010 DX:Sleep apnea Morbid obesity (CMS/HCC) 08/14/2010 DX:Morb id obesity ([facility]) Hyperlipidemia 08/14/2010 DX:Hyperlipidemi a Osteomyelitis of ankle or fo ot, left, acute (CMS/HCC) Bone spur of foot left Arm vein blood clot R BICEP Diabetes 1.5, managed as type 2 ([facility]) Port-A-Cath in place ROY R U PPER CHEST Family History Relation Name Status Comments Father (Age 68) PR, diabet es, hyperlipidemia Mother Alive HTN, diabetes, CABG Social History Tobacco Use Types Packs/Day Years [...] file Not on file Not on file Obstetrics History Last Filed Vital Signs Vital Sign Reading Time Taken Comments Blood Pressure 117/81 04/02/2024 8:50 AM EST Pulse 88 04/02/2024 8:50 AM EST Temperature 36.7 ??C (98.1 ??F) 04/02/2024 8:50 AM ES T Respiratory Rate 16 04/02/2024 8:41 AM EST Oxygen Saturation 98% 04/02/2024 8:50 AM EST Inhaled Oxygen Concentration - - Weight 133 kg (294 lb) 05/10/2024 9:14 AM EST Height 182.9 cm (6' 0.01 ) 05/10/2024 9:14 AM ES T Body Mass Index 39.86 05/10/2024 9:14 AM EST Plan of Treatment Upcoming Encounters Date Type Department Care Team (Late st Contact Info) Description 05/24/2024 9:00 AM EST Office Visit Orthopedic Surgery - [place] [address] [phone] Gato Gabriel, EMEKA 175 [facility] [address] [place] [phone] Health Maintenance Due Date Last Done Comments Diabetes: Annual Foot Exam 1976 Diabetes: Annual Retina Eye Exam 1976 Hepatitis B Vaccines (1 of 3 - 19+ 3-dose series) 1985 Diabetes: Annual GFR (Glomerular Filtration Rate) 11/30/2011 11/29/2010 Zoster Vaccines (2 of 2) 07/16/2021 05/21/2021 Cholesterol Screening (Lipid Panel) 05/15/2023 11/29/2010 Colorectal Cancer Screening: Colonoscopy 05/15/2023 Depression Screening 05/15/2023 HIV Screening 05/15/2023 Hepatitis C Screening 05/15/2023 Medicare Annual Wellness Visit 05/15/2023 Social Influencers of Health Screening 05/15/2023 Diabetes: Annual Urine Albumin-Creatinine Ratio (uACR) 05/23/2023 Diabetes: Blood Sugar Control Test (HGBA1C) 05/23/2023 11/29/2010 COVID-19 Vaccine ( season) 2023 02/02/2023, 02/22/2022, 01/24/2021, Additional history exists Influenza Vaccine (#1) 2023 , 02/22/2022, 01/24/2021 DTaP,Tdap,and Td Vaccines (6 - Td or Tdap) 05/09/2032 05/09/2022, 11/25/2018, 10/23/2018, Additional history exists MMR Vaccines Aged Out 12/07/2018 No longer eligi ble based on patient's age to complete this topic Pneumococcal Vaccine: Pediatrics (0 to 5 Years) and At-Risk Patients (6 to 64 Years) Completed 02/02/2023 HIB Vaccines Aged Out No longer eligi ble based on patient's age to complete this topic HPV Vaccines Aged Out No longer eligi ble based on patient's age to complete this topic Hepatitis A Vaccines Aged Out No long er eligible based on patient's age to complete this topic IPV Vaccines Aged Out No longer eligi ble based on patient's age to complete this topic Meningococcal ACWY Vaccine Aged Out N o longer eligible based on patient's age to complete this topic RSV Immunization Patients Under 20 months Aged Out No longer eligible based on patient's age to complete this topic Varicella Vaccines Aged Out No longer eligible based on patient's age to complete this topic Procedures Procedure Name Priority Date/Time Associated Diagnosis Comments XR FOOT 3+ VIEWS LEFT Routine 04/08/2024 8:33 AM EST Follow-up exam TISSUE EXAM Routine 04/02/2024 8:05 AM EST Chronic osteomyelitis of left foot (CMS/HCC) Exostosis of left foot CULTURE WOUND DEEP Routine 04/02/2024 8:05 AM EST Chronic osteomyelitis of left foot (CMS/HCC) Exostosis of left foot IA PARTIAL EXCISION BONE TARSAL OR METATARSAL BONE EXCEPT TALUS/CALCANEUS 04/02/2024 7:30 AM EST Chronic osteomyelitis of left foot (CMS/HCC) Exostosis of left foot Case Notes CONMED IA PARTIAL EXCISION BONE TARSAL OR METATARSAL BONE EXCEPT TALUS/CALCANEUS 04/02/2024 7:30 AM EST Chronic osteomyelitis of left foot (CMS/HCC) Exostosis of left foot Case Notes CONMED POCT GLUCOSE BLOOD Routine 04/02/2024 6:15 AM EST XR FOOT 3+ VIEWS LEFT Routine 03/09/2024 2:00 PM EST Left foot pain ORTHO X-RAY FOOT (3 VIEWS) Routine 02/17/2024 1:37 PM EDT Pain in left foot HM ANNUAL BMP BLOOD TEST Routine 11/29/2010 HEMOGLOBIN A1C Routine 11/29/2010 LIPID PANEL Routine 11/29/2010 from Last 3 Months or Most Recently Relevant to Health Maintenance Results * XR Foot 3+ Views Left (04/08/2024 8:33 AM EST) Only the most recent of2 resultswithin the time period is included. Anatomical Region Laterality Modality Lower Extremities, Foot Left Computed Radiography Narrative 04/16/2024 3:58 PM EST Left foot 3 views weightbearing: Postoperative x-ray showing recent removal of exostosis from the plantar aspect of the left foot Gato Gabriel DPHermelindo IMG XR PROCEDURES * Tissue exam (04/02/2024 8:05 AM EST) Final Diagnosis Foot, Left 4th metatarsal - clean margin : -VIABLE APPEARING BONE WITH REPARATIVE CHANGES 04/06/2024 1:23 PM EST [facility] 04/06/2024 1:23 PM [facility] Gross Description A. Foot, Left, Left 4th metatarsal - clean margin: Labeled left fourth, foot . Received in formalin is a 2.7 x 2.5 x 1.1 cm irregular pink-yellow bone fragment with moderate attached rubbery tissue. The trabecular bone is pink-yellow and unremarkable. The specimen is serially sectioned and entirely submitted in three cassettes following decalcification , two pieces each. TERESO 1 one 04/06/2024 1:23 PM [facility] Disclaimer Unless otherwise specified, all tissue is 10% NB formalin fixed and paraffin embedded. 04/06/2024 1:23 PM [facility] Bone Structure of left foot / Unknown 04/02/2024 8:05 AM EST 04/02/2024 10:26 AM EST Comment:In Formallin @ 08 Gato Gabriel DPHermelindo LAB PATHOLOGY ORDER JAISON [facility] [address] [place] [address], * (ABNORMAL) Culture wound deep (04/02/2024 8:05 AM EST) Culture, Wound Enterobacter cloacae complex(A) CATALINA 04/05/2024 11:18 AM EST [facility] Comment: The organism value for this result has been updated. These results have been appended to the previously preliminary verified report. This is an edited result. Previous organism was Gram negative bacilli on 04/03/2024 at 1105 EST. Gram Stain Result No polymorphonuclear leukocytes, No epithelial cells, and No organisms noted 04/05/2024 11:18 AM EST [facility] Swab Structure of left foot / Unknown 04/02/2024 8:05 AM EST 04/02/2024 8:38 AM EST Narrative Organism Antibiotic Method Susceptibility Enterobacter cloacae complex Amoxicillin/Clavulanate CATALINA >=32 ug/ml: Resistant Enterobacter cloacae complex Cefoxitin CATALINA >=64 ug/ml: Resistant Enterobacter cloacae complex Ceftazidime CATALINA <=0.5 ug/ml: Susceptible Enterobacter cloacae complex Cefepime CATALINA <=0.12 ug/ml: Susceptible Enterobacter cloacae complex Meropenem ACTALINA <=0.25 ug/ml: Susceptible Enterobacter cloacae complex Amikacin CATALINA 4 ug/ml: Susceptible Enterobacter cloacae complex Gentamicin CATALINA <=1 ug/ml: Susceptible Enterobacter cloacae complex Ciprofloxacin CATALINA <=0.06 ug/ml: Susceptible Enterobacter cloacae complex Levofloxacin CATALINA <=0.12 ug/ml: Susceptible Enterobacter cloacae complex Trimethoprim/Sulfamethoxaz ole CATALINA <=20 ug/ml: Susceptible Gato Gabriel DPM LAB MICROBIOLOGY - GENERAL ORDERABLES [facility] [address] [place] [address], * (ABNORMAL) POCT Glucose, blood (04/02/2024 6:15 AM EST) Glucose POCT 312(H) 70 - 100 mg/dL 04/02/2024 6:16 AM EST [facility] Blood Capillary blood specimen / Unknown 04/02/2024 6:15 AM EST 04/02/2024 6:17 AM EST Gtao Gabriel DPM LAB POINT OF CARE T EST DOCKED DEVICE UNSOLICITED RESULTS [facility] [address] [place] [address], * ORTHO X-RAY FOOT (3 VIEWS) (02/17/2024 1:37 PM EDT) Anatomical Region Laterality Modality Radiographic Angelita ging 02/17/2024 1:30 PM EDT Narrative 02/18/2024 8:35 PM EDT Left foot 3 views weightbearing: Charcot arthropathy through the midfoot. ??Severe metatarsus abductus. ??Previous resection of the fifth and fourth metatarsal with pathologic fracture to the third metatarsal. ??Hypertrophic bone formation to the plantar midfoot from removal base of the fourth metatarsal Procedure Note Gato Gabriel DPM - 02/21/2024 Left foot 3 views weightbearing: Charcot arthropathy through the midfoot.Severe metatarsus abductus. Previous resection of the fifth and fourthmetatarsal with pathologic fracture to the third metatarsal. Hypertrophicbone formation to the plantar midfoot from removal base of the fourthmetatarsal Gato Gabriel DPM IMG XR PROCEDURES * Annual BMP Blood Test (11/29/2010) [facility] Annual BMP Blood Test Abstracted Historical Provider [facility] * (ABNORMAL) Hemoglobin A1c (11/29/2010) [facility] Hemoglobin A1C 8.2(A) 4.0 - 6.0 % Blood Venous blood specimen / Unknown Historical Provider LAB BLOOD ORDERAB LES * (ABNORMAL) Lipid panel (11/29/2010) [facility] LDL/HDL Ratio 4 0 - 4 Triglycerides 88 0 - 150 mg/dL Cholesterol 200 0 - 200 mg/dL HDL 55 40 mg/dL LDL Cholesterol 128(A) 0 - 100 mg/dL Blood Venous blood specimen / Unknown Historical Provider LAB BLOOD ORDERAB LES from Last 3 Months or Most Recently Relevant to Health Maintenance Advance Directives * Full Code - Default (Latest Code Status on File) Date Activated Date Inactivated Comments 04/02/2024 6:06 AM 04/02/2024 11:49 AM This is o rder is used when code status has not been discussed with the patient, or code status is otherwise unknown/unconfirmed To update the patient's code status, place a code status order. Do not modify or discontinue any currently active code status orders. Care Teams [employer] Relationship Specialty Start Date End Date Shreyas Da Silva MD [address] [place] [address] Dr Sheila [place] PCP - General 11/04/23
--- OUTSIDE RECORDS SUMMARY | 2024-05-18 07:41 | XMS_ITS | Encounter Summary ---
Author Organization [facility] Address [address] [place] [address] Care Team Providers Care Director Clinical Operations Name Role Phone Shreyas Da Silva MD Primary Care Provider [phone] Reason for Visit * Reason Comments Foot Pain Chronic osteomyeliti s of left foot (CMS/HCC)Dehiscence of operative wound, subsequent encounterUlcer of left heel, with fat layer exposed (CMS/HCC Encounter Details Date Type Department Care Team (Late st Contact Info) Description 04/26/2024 10:30 AM EST Office Visit Orthopedic Surgery - [place] 250 175 [facility] [address] [place] [phone] Gato Gabriel, DPM 175 [facility] [address] [place] [address] Dehiscence of operative wound, subsequent encounter (Primary [...] - - Weight 133 kg (294 lb) 04/26/2024 10:28 AM EST Height 182.9 cm (6' 0.01 ) 04/26/2024 10:28 AM Wing GILMAN Body Mass Index 39.86 04/26/2024 10:28 AM EST documented in this encounter Progress Notes * Gato Gabriel DPM - 04/26/2024 10:30 AM EST Referring MD: Avinash Last PCP [...] Outpatient Medications Marked as Taking for the 04/26/24 encounter (Office Visit) with Gato Gabriel DPM [...] Sharp/dull sensation diminished, protective sensation diminished on [place]. Multipleperipheral rhombus bilaterally ORTHOPEDIC: Good muscle strength 5/5 of all flexors and extensors. Dorsi flexion of ankle ,10 degrees, plantar flexion WNL. No muscle atrophy. 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 Charcot arthropathy of the left foot DERMATOLOGICAL:.Wound to the plantar aspect of the foot has healed Continued wound dehiscence to the lateral aspect of the foot at the surgical site distally. 1 cm has healed well 2 cm remain dehisced. Wound extends into the subcutaneous tissue with fibrotic tissue throughout and serous drainage. No further malodor. Periwound erythema that is not streaking [...] with dressing changes every other day. Patient does not appear to have any continued infection tothe left foot does not require continued antibiotics. Patient will be reevaluated next week Open wound selective debridement of devitalized soft [...] AM EST Office Visit Orthopedic Surgery - [place] [address] [phone] Gato Gabriel DPM [address] [address] documented as of this encounter Visit Diagnoses Diagnosis Dehiscence of operative wound, subsequent encounter- Primary Ulcer of left heel, with fat layer exposed ([facility]) documented in this encounter Care Teams Director Clinical Operations Relationship Specialty Start Date End Date Shreyas Da Silva MD [address] [place] [address] Dr Sheila [place] PCP - General 11/04/23 documented as of this encounter
[2024-05-18 07:58] LABS: MANUAL DIFF FLAG NO
[2024-05-18 08:23] LABS: Basophils Absolute Auto 0.1 X10*3/uL (0.0-0.2); Eosinophils Absolute Auto 0.3 X10*3/uL (0.0-0.4); Hematocrit 39.6 % (42.0-52.0); Imm Gran Abs Auto 0.03 X10*3/uL (0.00-0.03); Imm Gran Pct Auto 0.4 % (0.0-0.4); Lymphocytes Absolute Auto 2.2 X10*3/uL (1.2-4.9); Lymphocytes Percent Auto 27.9 % (20-40); Mean Corpuscular HGB Conc 32.8 g/dl (31.0-36.0); Mean Corpuscular Hemoglobin 29.5 pg (27.0-33.0); Mean Corpuscular Volume 89.8 fL (80.0-98.0); Monocytes Absolute Auto 0.5 X10*3/uL (0.1-1.2); Monocytes Percent Auto 6.2 % (2-11); Neutrophils Absolute Auto 4.7 x10*3/uL (2.0-8.3); Neutrophils Percent Auto 60.5 % (45-73); Platelet Count 210 X10*3/uL (160-400); Red Blood Count 4.41 X10*6/uL (4.60-5.80); Red Cell Distribution Width 13.9 % (11.0-16.0); White Blood Count 7.7 X10*3/uL (4.8-10.8)
[2024-05-18 08:38] LABS: Estimated Average Glucose 352 mg/dL; Hemoglobin A1C 433.0475 umol/L; Hemoglobin A1c % 13.9 % (<6.0); Total Hemoglobin (HGBA1C) 3370.8741 umol/L
[2024-05-18 08:56] LABS: Creatinine Urine 101.79 mg/dL; Microalbum/Creatinine Ratio Ur 168.9 ug/mg cr (<30)
[2024-05-18 09:08] LABS: Alanine Aminotransferase 20 U/L (0-40); Albumin Level 3.9 g/dL (3.5-5.0); Alkaline Phosphatase 101 U/L (39-117); Anion Gap 12 (12-20); Aspartate Amino Transferase 20 U/L (5-37); Bilirubin Total 0.6 mg/dL (0.0-1.0); Blood Urea Nitrogen 18 mg/dL (9-16); Calcium 9.1 mg/dL (8.4-10.2); Carbon Dioxide 26 mmol/L (22-29); Chloride 99 mmol/L (96-108); Estimated Glomerular Filt Rate > 60; Glucose Random 353 mg/dL (60-115); Potassium 4.4 mmol/L (3.3-5.1); Sodium 133 mmol/L (135-145); Total Protein 8.6 g/dL (6.5-8.0)
== END 2024-05-18 07:33 | disposition home or self-care (01) ==
LOC: HO.LAB 07:32
PROVIDERS: PCP Internal Medicine; Visit Provider Internal Medicine
DX: E11.9 Type 2 diabetes mellitus without complications (principal); I10 Essential (primary) hypertension; E78.00 Pure hypercholesterolemia, unspecified
CPT/HCPCS: 36415; 80053; 82043; 82570; 83036; 85025

== ENCOUNTER 2024-06-07 13:49 | Outpatient (REF) | payer MEDICARE, SELFPAY ==
--- NOTE | ~2024-06-07 | MR_ITS ---
EXAMINATION: MR CERVICAL SPINE WITHOUT CONTRAST CLINICAL INFORMATION: Radiculopathy. COMPARISON: None available. TECHNIQUE: MRI of the cervical spine was obtained using routine sequences without contrast. FINDINGS: Craniocervical junction is intact. Multilevel marginal osteophyte formation and disc desiccation C3 C7 more conspicuous at C6-7. Bone marrow STIR signal in the anterior endplates of C6-7. Reverse curvature apex at C5-C6. Grade 1 anterolisthesis C3 C7-T1 and likely C4-5. Cervical spinal cord signal is normal. C2-3: Broad-based disc osteophyte complex formation. Facet joint hypertrophy. Reduced AP diameter of the thecal sac. No cord compression. Left neuroforamina stenosis. C3-4: Asymmetric left-sided disc osteophyte complex formation abutting the cord. No cord signal abnormality. Facet joint hypertrophy. Bilateral neuroforamina stenosis left greater than the right side. C4-5: Central disc osteophyte complex formation abutting the cord. Facet joint hypertrophy. Reduced AP diameter of the thecal sac. C5-6: Central disc osteophyte complex formation resulting in ventral deformity of the spinal cord. No cord signal abnormality. No neuroforamina stenosis. C6-7: Broad-based disc osteophyte complex formation resulting in cord deformity. CSF effacement of the thecal sac. Bilateral neuroforamina stenosis on a degenerative basis. No cord signal abnormality. C7-T1: Broad-based disc osteophyte complex formation. Facet joint hypertrophy as well as ligamentum flavum. Reduced AP diameter of the thecal sac. Left neuroforamina stenosis on a degenerative basis. Flow-void signal within the mean vessels is normal. No prevertebral compartment hematoma or mass. MR/MR cervical spine wo con IMPRESSION: Multilevel cervical spondylosis, C2-3 to C6-7 resulting in central spinal canal stenosis and likely cord compression at C6-7, C5-6 and C3-4 without cord edema and or myelopathy. Electronically signed by: Rafael Dias MD 06/08/2024 11:48 AM EST
--- OUTSIDE RECORDS SUMMARY | 2024-06-07 13:56 | XMS_ITS | Clinical Summary ---
Author Organization 175 [facility] Address [address] [place] [address] Phone Care Team Providers Care Electric Meter Repairer Apprentice Name Role Phone Shreyas Da Silva MD Primary Care Provider Allergies Active Allergy Reactions Criticality Noted Date Comments Penicillins Unknown Low 11/11/2023 Childhood-unknown rxn Medications blood-glucose meter kit 1 Device by Does not apply route. Use daily to blood sugars daily 1 Active blood glucose control, normal (Glucose Control) solution Use to calibrate glucometer 1 Active lancets lancets 1 Strip daily. 1 Active DAPTOmycin in 0.9 % sod chlor 1,000 mg/100 mL piggyback Infuse 4 mg/kg into a venous catheter 1 (one) time each day. Active apixaban (ELIQUIS) 5 mg tablet Take 1 tablet (5 mg total) by mouth 2 (two) times a day. Active lisinopriL (PRINIVIL,ZESTR IL) 2.5 mg tablet Take 1 tablet (2.5 [...] times a day before meals. Active insulin glargine,hum.re c.anlog (BASAGLAR KWIKPEN U-100 INSULIN SUBQ) Inject 80 Units under the skin at bedtime. Active insulin glargine,hum.re c.anlog (BASAGLAR KWIKPEN U-100 INSULIN SUBQ) Inject 30 Units under the skin 1 (one) time each day. Active semaglutide (OZEMPIC) 2 mg/dose (8 mg/3 mL) injection pen Inject 2 mg under the skin every 7 (seven) days. Active empagliflozin (Jardiance) 10 mg tablet Take 1 tablet (10 mg total) by mouth 1 (one) time each day. Active Active Problems Problem Noted Date Diagnosed Date Chronic osteomyelitis of left foot 03/22/2024 Exostosis of left foot 03/22/2024 Hyperlipidemia 08/14/2010 Morbid obesity 08/14/2010 Type 2 diabetes mellitus 08/14/2010 Sleep apnea 07/31/2010 Encounters Date Type Department Care Team Description 05/24/2024 9:00 AM EST Office Visit Orthopedic [address] [phone] Gato Gabriel DPM Controlled type 2 diabetes mellitus with diabetic polyneuropathy, without long-term current use of insulin (CMS/HCC) (Primary Dx); History of amputation of left foot through metatarsal bone (CMS/HCC); Charcot foot due to diabetes mellitus (CMS/HCC); Ulcer of toe of right foot, with fat layer exposed (CMS/HCC); Onychomycosis 05/10/2024 9:15 AM EST Office Visit Orthopedic [address] [phone] Gato Gabriel DPM Controlled type 2 diabetes mellitus with diabetic polyneuropathy, without long-term current use of insulin (CMS/HCC) (Primary Dx); History of amputation of left foot through metatarsal bone (CMS/HCC); Charcot foot due to diabetes mellitus (CMS/HCC); Onychomycosis; Callus; Localized edema 05/03/2024 8:30 AM EST Office Visit Orthopedic [address] [phone] Gato Gabriel DPM Postoperative state (Primary Dx) 04/26/2024 10:30 AM EST Office Visit Orthopedic Surgery [place] [address] [phone] Gato Gabriel DPM Dehiscence of operative wound, subsequent encounter (Primary Dx); Ulcer of left heel, with fat layer exposed ([facility]) 04/20/2024 8:30 AM EST Office Visit Orthopedic Surgery [place] [address] [phone] Gato Gabriel DPM Dehiscence of operative wound, subsequent encounter (Primary Dx); Ulcer of left heel, with fat layer exposed ([facility]) 04/08/2024 8:30 AM EST Office Visit Orthopedic Surgery [place] [address] [phone] Gato Gabriel DPM Postoperative state (Primary Dx) 04/02/2024 7:30 AM EST Anesthesia Event [facility] OR [address] [place] [phone] Patrice Godinez MD [facility] 04/02/2024 7:30 AM EST - 04/02/2024 9:00 AM EST Surgery [facility] OR [address] [place] [phone] Gato Gabriel DPM EXCISION BONE SPUR LEFT LOWER EXTREMITY [31433 (CPT??)] 04/02/2024 6:00 AM EST - 04/02/2024 9:48 AM EST Hospital Encounter [facility] OR [address] [place] [phone] Gato Gabriel DPM Chronic osteomyelitis of left foot ([facility]); Exostosis of left foot Discharge Disposition: Home or Self Care 03/29/2024 9:00 AM EST Office Visit Orthopedic [place] [address] [phone] Gato Gabriel DPM Chronic osteomyelitis of left foot (CMS/HCC) (Primary Dx); Dehiscence of operative wound, subsequent encounter; Cellulitis of left foot; Midfoot ulceration, left, with necrosis of muscle (CMS/HCC) 03/22/2024 8:30 AM EST Office Visit Orthopedic Surgery [place] [address] [phone] Gato Gabriel DPM Left foot pain (Primary Dx); Chronic osteomyelitis of left foot (CMS/HCC); Dehiscence of operative wound, subsequent encounter; Ulcer of left heel, with fat layer exposed (CMS/HCC); Exostosis of left foot 03/12/2024 Telephone Orthopedic Surgery [place] [address] [phone] Gato Gabriel DPM 03/09/2024 1:45 PM EST Office Visit Orthopedic Surgery [place] [address] [phone] Gato Gabriel DPM Left foot pain (Primary Dx); Dehiscence of operative wound, subsequent encounter; Chronic osteomyelitis of left foot (CMS/HCC); Cellulitis of left foot; 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, left, with necrosis of bone (CMS/HCC) from Last 3 Months Immunizations Name [...] Morbid obesity (CMS/HCC) 08/14/2010 DX:Morb id obesity ([facility]) Hyperlipidemia 08/14/2010 DX:Hyperlipidemi a Osteomyelitis of ankle or fo ot, left, acute (CMS/HCC) Bone spur of foot left Arm vein blood clot R BICEP Diabetes 1.5, managed as type 2 (CMS/HCC) Port-A-Cath in place ROY R U PPER CHEST Family History Relation Name Status Comments Father (Age 68) [place], diabet es, hyperlipidemia Mother Alive HTN, diabetes, [...] Assigned at Male 03/25/2024 5:25 PM EST Legal Sex Male 8:19 PM EST Gender Identity Male 03/25/2024 5:25 PM EST Sexual Orientation Straight 03/25/2024 5: 25 PM EST Obstetrics History Last Filed Vital Signs Vital Sign Reading Time Taken Comments Blood Pressure 117/81 04/02/2024 8:50 AM EST Pulse 88 04/02/2024 8:50 AM EST Temperature 36.7 ??C (98.1 ??F) 04/02/2024 8:50 AM ES T Respiratory Rate 16 04/02/2024 8:41 AM EST Oxygen Saturation 98% 04/02/2024 8:50 AM EST Inhaled Oxygen Concentration - - Weight 133 kg (294 lb) 05/24/2024 8:45 AM EST Height 182.9 cm (6' 0.01 ) 05/24/2024 8:45 AM ES T Body Mass Index 39.86 05/24/2024 8:45 AM EST Plan of Treatment Upcoming Encounters Date Type Department Care Team (Late st Contact Info) Description 07/26/2024 8:45 AM EDT Office Visit Orthopedic Surgery - [place] [address] [phone] Hernesto Youssef, DPM [address] [address] Health Maintenance Due Date Last Done Comments [...] age to complete this topic Pneumococcal Vaccine: 50+ Years Completed 02/02/2023 Pneumococcal Vaccine: Pediatrics (0 to 5 Years) [...] patient's age to complete this topic Meningococcal B Vacine Aged Out No lo nger eligible based on patient's age to complete [...] left foot (CMS/HCC) Exostosis of left foot OR PARTIAL EXCISION BONE TARSAL OR METATARSAL BONE EXCEPT TALUS/CALCANEUS 04/02/2024 7:30 AM EST Chronic osteomyelitis of left foot (CMS/HCC) Exostosis of left foot Case Notes CONMED OR PARTIAL EXCISION BONE TARSAL OR METATARSAL BONE EXCEPT TALUS/CALCANEUS 04/02/2024 7:30 AM EST Chronic osteomyelitis of left foot (CMS/HCC) Exostosis of left foot Case Notes CONMED POCT GLUCOSE BLOOD Routine 04/02/2024 6:15 AM EST XR FOOT 3+ VIEWS LEFT Routine 03/09/2024 2:00 PM EST Left foot pain HM ANNUAL BMP BLOOD TEST Routine 11/29/2010 [...] the plantar aspect of the left foot us Gato Gabriel DPM IMG XR PROCEDURES Final Res ult * Tissue exam (04/02/2024 8:05 AM EST) Final Diagnosis Foot, Left 4th metatarsal - clean margin : -VIABLE APPEARING BONE WITH REPARATIVE CHANGES 04/06/2024 1:23 PM EST [facility] Clinical Information In [employer] @ 0810 04/06/2024 1:[address] [facility] Gross Description A. Foot, Left, Left [...] each. TERESO 1 one 04/06/2024 1:[address] [facility] Disclaimer Unless otherwise specified, all tissue is 10% NB formalin fixed and paraffin embedded. 04/06/2024 1:[address] [facility] Bone Structure of left foot / Unknown 04/02/2024 8:05 AM EST 04/02/2024 10:26 AM EST Comment:In [employer] @ 08Weixinhai Gato Gabriel DP LAB PATHOLOGY ORDERABLES Fi nal Result [facility] [address] [place] [address], * (ABNORMAL) Culture wound deep (04/02/2024 8:05 AM EST) Culture, Wound Enterobacter cloacae complex(A) CATALINA 04/05/2024 11:18 AM EST [facility] Comment: The organism value for this result has been updated. These results have been appended to the previously preliminary verified report. This is an edited result. Previous organism was Gram negative bacilli on 04/03/2024 at 1105 EST. Gram Stain Result No polymorphonuclear leukocytes, No epithelial cells, and No organisms noted 04/05/2024 11:18 AM EST [facility] Swab Structure of left foot / Unknown 04/02/2024 8:05 AM EST 04/02/2024 8:38 AM EST Narrative Organism Antibiotic Method Susceptibility Enterobacter cloacae complex Amoxicillin/Clavulanate CATALINA >=32 ug/ml: Resistant Enterobacter cloacae complex Cefoxitin CATALINA >=64 ug/ml: Resistant Enterobacter cloacae complex Ceftazidime CATALINA <=0.5 ug/ml: Susceptible Enterobacter cloacae complex Cefepime CATALINA <=0.12 ug/ml: Susceptible Enterobacter cloacae complex Meropenem CATALINA <=0.25 ug/ml: Susceptible Enterobacter cloacae complex Amikacin CATALINA 4 ug/ml: Susceptible Enterobacter cloacae complex Gentamicin CATALINA <=1 ug/ml: Susceptible Enterobacter cloacae complex Ciprofloxacin CATALINA <=0.06 ug/ml: Susceptible Enterobacter cloacae complex Levofloxacin CATALINA <=0.12 ug/ml: Susceptible Enterobacter cloacae complex Trimethoprim/Sulfamethoxaz ole CATALINA <=20 ug/ml: Susceptible us Gato Gabriel DPM LAB MICROBIOLOGY - GENERAL ORDERABLES Final Result [facility] [address] [place] [address], [place] [phone] * (ABNORMAL) POCT Glucose, blood (04/02/2024 6:15 AM EST) [facility] Glucose POCT 312(H) 70 - 100 mg/dL 04/02/2024 6:16 AM EST [facility] Blood Capillary blood specimen / Unknown 04/02/2024 6:15 AM EST 04/02/2024 6:17 AM EST us Gato Gabriel DPHermelindo LAB POINT OF CARE T EST DOCKED DEVICE UNSOLICITED RESULTS Final Result Performing Organization Address [facility]/ZIP Co de Phone Number [facility] [address] [place] [address], [place] [phone] * Annual BMP Blood Test (11/29/2010) [facility] Annual BMP Blood Test Abstracted Historical Provider HEALTH MAINTENANCE Final Result * (ABNORMAL) Hemoglobin A1c (11/29/2010) Hemoglobin A1C 8.2(A) 4.0 - 6.0 % Blood Venous blood specimen / Unknown [facility] Provider LAB BLOOD ORDERABLES Bibi l Result * (ABNORMAL) Lipid panel (11/29/2010) LDL/HDL Ratio 4 0 - 4 Triglycerides 88 0 - 150 mg/dL Cholesterol 200 0 - 200 mg/dL HDL 55 >=40 mg/dL LDL Cholesterol 128(A) 0 - 100 mg/dL Blood Venous blood specimen / Unknown [facility] Provider LAB BLOOD ORDERABLES Bibi l Result from Last 3 Months or Most Recently Relevant to Health Maintenance Insurance [facility] MEDICARE ADVANTAGE Advance Directives * Full Code - Default [...] currently active code status orders. Care Teams Electric Meter Repairer Apprentice Relationship Specialty Start Date End Date Shreyas Da Silva MD [address] [place] [address] Dr Sheila [place] PCP - General 11/04/23
--- OUTSIDE RECORDS SUMMARY | 2024-06-07 13:56 | XMS_ITS | Encounter Summary ---
Author Organization [facility] Address [address] [place] [address] Care Team Providers Care Radiology Equipment Servicer Name Role Phone Shreyas Da Silva MD Primary Care Provider [phone] Reason for Visit * Reason Comments Foot Pain Chronic osteomyeliti s of left foot (CMS/HCC)Dehiscence of operative wound, subsequent encounterUlcer of left heel, with fat layer exposed (CMS/HCC Encounter Details Date Type Department Care Team (Late st Contact Info) Description 05/10/2024 9:15 AM EST Office Visit Orthopedic Surgery - [place] [address] [phone] Gato Gabriel, DP 175 [facility] Ronnie [address] [place] [phone] Controlled type 2 diabetes mellitus with diabetic polyneuropathy, without long-term current use of insulin ([facility]) (Primary Dx); History of amputation of left foot through metatarsal bone (CMS/[facility]); Charcot foot due to diabetes mellitus (CMS/HCC); [...] Orientation Straight 03/25/2024 5: 25 PM EST documented as of this encounter Last Filed [...] Sharp/dull sensation diminished, protective sensation diminished on [place]. Multipleperipheral rhombus bilaterally ORTHOPEDIC: Good muscle strength [...] polyneuropathy, without long-term current use of insulin ([facility]) 2. History of amputation of left foot through metatarsal bone ([facility]) 3. Charcot foot due to diabetes mellitus ([facility]) 4. Onychomycosis 5. Callus 6. Localized edema [...] AM EDT Office Visit Orthopedic Surgery - [place] [address] [phone] Hernesto Youssef DPM [address] [phone] documented as of this encounter Visit Diagnoses Diagnosis Controlled type 2 diabetes mellitus with diabetic polyneuropathy, without long- term current use of insulin ([facility])- Primary History of amputation of left foot through metatarsal bone ([facility]) Charcot foot due to diabetes mellitus ([facility]) Onychomycosis Dermatophytosis of nail Callus Corns and callosities Localized edema Edema documented in this encounter Orders General Supply Count Last Ordered Date First Or dered Date DIABETIC CUSTOM MOLDED SHOE WITH INSERTS 1 05/10/2024 documented in this encounter Care Teams Radiology Equipment Servicer Relationship Specialty Start Date End Date Shreyas Da Silva MD [address] [place] [address] Dr Sheila [place] PCP - General 11/04/23 documented as of this encounter
--- OUTSIDE RECORDS SUMMARY | 2024-06-07 13:56 | XMS_ITS | Encounter Summary ---
Author Organization [facility] Address [address] [place] [address] Care Team Providers Care Dry Boss Name Role Phone Shreyas Da Silva MD Primary Care Provider [phone] Reason for Visit * Reason Comments Foot Pain Chronic osteomyeliti s of left foot (CMS/HCC)Dehiscence of operative wound, subsequent encounterUlcer of left heel, with fat layer exposed (CMS/HCC Encounter Details Date Type Department Care Team (Late st Contact Info) Description 05/24/2024 9:00 AM EST Office Visit Orthopedic Surgery - [place] [address] [phone] Gato Gabriel, DP [address] [address] Controlled type 2 diabetes mellitus with diabetic polyneuropathy, without long-term current use of insulin (CMS/[facility]) (Primary Dx); History of amputation of left foot through metatarsal bone (CMS/HCC); Charcot foot due to diabetes mellitus (CMS/HCC); Ulcer of toe of right foot, with fat layer exposed (CMS/HCC); Onychomycosis Social History Tobacco Use Types Packs/Day Years [...] Mass Index 39.86 05/24/2024 8:45 AM EST documented in this encounter Progress Notes * Gato Gabriel DPM - 05/24/2024 9:00 AM EST Referring MD: Avinash Last PCP visit: 12/09/2023 IDENTIFIER: @TITLE@ Demetria is a 58 y.o. year old male who presents for consultation. CC: Left foot ulceration HPI: 58-year-old diabetic male returns office. Patient has been dealing with wound dehiscence and open wounds associated with Charcot neuropathy. Patient has been healed as of 05/10/24 and has been using his old diabetic shoes. Patient is waiting for new diabetic shoes to be created with a lateral flangeto prevent turning in of the foot. Patient notes he has not had any open areas or redness. Patient does note a lesion over the right great toe. Patient notes his nails are thickened and misshapened causing rubbing in close toed shoes ROS: GENERAL: Pt denies nausea, fever, vomiting, [...] Outpatient Medications Marked as Taking for the 05/24/24 encounter (Office Visit) with Gato Gabriel DPM Medication Sig Dispense Refill blood glucose control, normal (Glucose Control) solution Use to calibrate glucometer blood-glucose meter kit 1 Device by Does not apply route. Use daily to blood sugars daily empagliflozin (Jardiance) 10 mg tablet Take 1 [...] Sharp/dull sensation diminished, protective sensation diminished on [place]. Multipleperipheral rhombus bilaterally ORTHOPEDIC: Good muscle strength 5/5 of all flexors and extensors. Dorsi flexion of ankle ,10 degrees, plantar flexion WNL. No muscle atrophy. 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 Charcot arthropathy of the left foot DERMATOLOGICAL:.No new openings to the left foot. Some remaining scar tissue from multiple surgeries. Lesion over the right great toe dorsally over the IP joint with some periwound erythema but no breakdown further than skin layer. Area appears to be healing BIOMECHANICS: STJ ROM wnl, MTJ ROM wnl, 1st MPJ ROM wnl. IMAGING: Imaging: Notable Charcot breakdown of the midtarsal joint with medial displacement. Some concern for heterotopic bone formation at the resected base of the fourth metatarsal. IMPRESSION: 1. Controlled type 2 diabetes mellitus with diabetic polyneuropathy, without long-term current use of insulin ([facility]) 2. History of amputation of left foot through metatarsal bone ([facility]) 3. Charcot foot due to diabetes mellitus ([facility]) 4. Ulcer of toe of right foot, with fat layer exposed ([facility]) 5. Onychomycosis PLAN: Pt was seen and examined, history reviewed. Patient instructed to continue checking his feet daily in order to limit chances for new ulcerationand pressure sores from developing. Patient will return immediately if he starts noticing color changes in the bottom of the foot. Patient instructed to follow-up with his round kiln drawer for diabetic shoes with a lateral flange for theleft foot. Patient instructed to keep an eye on the right great toe wound as it could become infected and if it does needs to be treated aggressively. Patient instructed to check his shoes and be sure that his toe is not rubbing in the toebox. Nail debridement performed to nails 1-5 bilateral as nails were described to be causing pain and difficulty for walking while in shoegear at their previous length. They were debrided in thickness andlength, with no incident. Clinical evidence of mycosis is documented which required active treatment. Patient expressed immediate relief. Patient is to RTC in 9 weeks Gato Gabriel DPM documented in this encounter Plan of Treatment Upcoming Encounters Date Type Department Care Team (Late st Contact Info) Description 07/26/2024 8:45 AM EDT Office Visit Orthopedic Surgery - [place] [address] [phone] Hernesto Youssef, DPM [address] [address] documented as of this encounter Visit Diagnoses Diagnosis Controlled type 2 diabetes mellitus with diabetic polyneuropathy, without long- term current use of insulin ([facility])- Primary History of amputation of left foot through metatarsal bone ([facility]) Charcot foot due to diabetes mellitus ([facility]) Ulcer of toe of right foot, with fat layer exposed ([facility]) Onychomycosis Dermatophytosis of nail documented in this encounter Care Teams Dry Boss Relationship Specialty Start Date End Date Shreyas Da Silva MD [address] [place] [address] Dr Sosa [place] PCP - General 11/04/23 documented as of this encounter
== END 2024-06-07 13:50 | disposition home or self-care (01) ==
LOC: HO.MRI 13:49
PROVIDERS: PCP Internal Medicine; Visit Provider Registered Nurse
DX: M54.12 Radiculopathy, cervical region (principal)
CPT/HCPCS: 72141

== ENCOUNTER → 2024-06-07 14:02 | Outpatient (BNV) | payer MEDICARE, SELFPAY | PROVIDERS: PCP Internal Medicine; Visit Provider Radiology Diagnostic Radiology | DX: M47.812 Spondylosis without myelopathy or radiculopathy, cervical region (principal); M48.02 Spinal stenosis, cervical region | CPT/HCPCS: 72141 ==

== ENCOUNTER 2024-06-08 09:25 | Outpatient (REF) | payer MEDICARE, SELFPAY ==
--- NOTE | 2024-06-08 09:30 | EMG_ITS ---
Bilateral median and ulnar motor and sensory studies were performed. Bilateral radial sensory studies were performed and paraspinal muscles were tested with a needle. 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 MD JOSE MANUEL Brown/GRECIA / [id number]
--- OUTSIDE RECORDS SUMMARY | 2024-06-08 10:12 | XMS_ITS | Encounter Summary ---
Author Organization [facility] Address [address] [place] [address] Care Team Providers Care Notary Public Name Role Phone Shreyas Da Silva MD Primary Care Provider Reason for Visit * Reason Comments Foot Pain Chronic osteomyeliti s of left foot (CMS/HCC)Dehiscence of operative wound, subsequent encounterUlcer of left heel, with fat layer exposed (CMS/HCC Encounter Details Date Type Department Care Team (Late st Contact Info) Description 05/24/2024 9:00 AM EST Office Visit Orthopedic Surgery - [place] [address] [phone] Gato Gabriel, DP [address] [address] Controlled type 2 diabetes mellitus with diabetic polyneuropathy, without long-term current use of insulin (CMS/[facility]) (Primary Dx); History of amputation of [...] Sharp/dull sensation diminished, protective sensation diminished on [place]. Multipleperipheral rhombus bilaterally ORTHOPEDIC: Good muscle strength [...] polyneuropathy, without long-term current use of insulin ([facility]) 2. History of amputation of left foot through metatarsal bone ([facility]) 3. Charcot foot due to diabetes mellitus ([facility]) 4. Ulcer of toe of right foot, with fat layer exposed ([facility]) 5. Onychomycosis PLAN: Pt was seen and examined, history reviewed. Patient instructed to continue checking his feet daily in order to limit chances for new ulcerationand pressure sores from developing. Patient will return immediately if he starts noticing color changes in the bottom of the foot. Patient instructed to follow-up with his dietary director for diabetic shoes with a lateral flange [...] AM EDT Office Visit Orthopedic Surgery - [place] [address] [phone] Hernesto Youssef, DPM [address] [address] documented as of this encounter Visit Diagnoses Diagnosis Controlled type 2 diabetes mellitus with diabetic polyneuropathy, without long- term current use of insulin ([facility])- Primary History of amputation of left foot through metatarsal bone ([facility]) Charcot foot due to diabetes mellitus ([facility]) Ulcer of toe of right foot, with fat layer exposed ([facility]) Onychomycosis Dermatophytosis of nail documented in this encounter Care Teams Notary Public Relationship Specialty Start Date End Date Shreyas Da Silva MD [address] [place] [address] Dr Sosa [place] PCP - General 11/04/23 documented as of this encounter
--- OUTSIDE RECORDS SUMMARY | 2024-06-08 10:12 | XMS_ITS | Encounter Summary ---
[facility] Address [address] [place] [address] Care Team Providers Care Benefits Administrator Name Role Phone Shreyas Da Silva MD Primary Care Provider [phone] Reason for Visit * Reason Comments Foot Pain Chronic osteomyeliti s of left foot (CMS/HCC)Dehiscence of operative wound, subsequent encounterUlcer of left heel, with fat layer exposed (CMS/HCC Encounter Details Date Type Department Care Team (Late st Contact Info) Description 05/10/2024 9:15 AM EST Office Visit Orthopedic Surgery - [place] [address] [phone] Gato Gabriel, DP 175 [facility] Ronnie [address] [place] [phone] Controlled type 2 diabetes mellitus with diabetic polyneuropathy, without long-term current use of insulin ([facility]) (Primary Dx); History of amputation of left foot through metatarsal bone (CMS/[facility]); Charcot foot due to diabetes mellitus [...] sensation diminished, protective sensation diminished on [place]. Multipleperipheral rhombus bilaterally ORTHOPEDIC: Good muscle strength [...] polyneuropathy, without long-term current use of insulin ([facility]) 2. History of amputation of left foot through metatarsal bone ([facility]) 3. Charcot foot due to diabetes mellitus ([facility]) 4. Onychomycosis 5. Callus 6. Localized [...] AM EDT Office Visit Orthopedic Surgery - [place] [address] [phone] Hernesto Youssef DPM [address] [address] documented as of this encounter Visit Diagnoses Diagnosis Controlled type 2 diabetes mellitus with diabetic polyneuropathy, without long- term current use of insulin ([facility])- Primary History of amputation of left foot through metatarsal bone ([facility]) Charcot foot due to diabetes mellitus ([facility]) Onychomycosis Dermatophytosis of nail Callus Corns and callosities Localized edema Edema documented in this encounter Orders General Supply Count Last Ordered Date First Or dered Date DIABETIC CUSTOM MOLDED SHOE WITH INSERTS 1 05/10/2024 documented in this encounter Care Teams Benefits Administrator Relationship Specialty Start Date End Date Shreyas Da Silva MD [address] [place] [address] Dr Sheila [place] PCP - General 11/04/23 documented as of this encounter
--- OUTSIDE RECORDS SUMMARY | 2024-06-08 10:12 | XMS_ITS | Clinical Summary ---
Author Organization 175 [facility] Address 175 [place] [address] Phone Care Team Providers Care Ship Washer Name Role Phone Shreyas Da Silva MD Primary Care Provider [phone] Allergies Active Allergy Reactions Criticality Noted Date [...] 05/24/2024 9:00 AM EST Office Visit Orthopedic [address] [phone] Gato Gabriel DPM Controlled type 2 diabetes mellitus with diabetic polyneuropathy, without long-term current use of insulin (CMS/HCC) (Primary Dx); History of amputation of left foot through metatarsal bone (CMS/HCC); Charcot foot due to diabetes mellitus (CMS/HCC); Ulcer of toe of right foot, with fat layer exposed (CMS/HCC); Onychomycosis 05/10/2024 9:15 AM EST Office Visit Orthopedic [address] [phone] Gato Gabriel DPM Controlled type 2 diabetes mellitus with diabetic polyneuropathy, without long-term current use of insulin (CMS/HCC) (Primary Dx); History of amputation of left foot through metatarsal bone (CMS/HCC); Charcot foot due to diabetes mellitus (CMS/HCC); Onychomycosis; Callus; Localized edema 05/03/2024 8:30 AM EST Office Visit Orthopedic [address] [phone] Gato Gabriel DPM Postoperative state (Primary Dx) 04/26/2024 10:30 AM EST Office Visit Orthopedic Surgery [place] [address] [phone] Gato Gabriel DPM Dehiscence of operative wound, subsequent encounter (Primary Dx); Ulcer of left heel, with fat layer exposed ([facility]) 04/20/2024 8:30 AM EST Office Visit Orthopedic Surgery [place] [address] [phone] Gato Gabriel DPM Dehiscence of operative wound, subsequent encounter (Primary Dx); Ulcer of left heel, with fat layer exposed ([facility]) 04/08/2024 8:30 AM EST Office Visit Orthopedic Surgery [place] [address] [phone] Gato Gabriel DPM Postoperative state (Primary Dx) 04/02/2024 7:30 AM EST Anesthesia Event [facility] [place] [address] [place] [phone] Patrice Godinez MD [facility] 04/02/2024 7:30 AM EST - 04/02/2024 9:00 AM EST Surgery [facility] OR [address] [place] [phone] Gato Gabriel DPM EXCISION BONE SPUR LEFT LOWER EXTREMITY [54890 (CPT??)] 04/02/2024 6:00 AM EST - 04/02/2024 9:48 AM EST Hospital Encounter [facility] [place] [address] [place] [phone] Gato Gabriel DPM Chronic osteomyelitis of left foot ([facility]); Exostosis of left foot Discharge Disposition: Home or Self Care 03/29/2024 9:00 AM EST Office Visit Orthopedic [place] [address] [phone] Gato Gabriel DPM Chronic osteomyelitis of left foot (CMS/HCC) (Primary Dx); Dehiscence of operative wound, subsequent encounter; Cellulitis of left foot; Midfoot ulceration, left, with necrosis of muscle (CMS/HCC) 03/22/2024 8:30 AM EST Office Visit Orthopedic Surgery [place] [address] [phone] Gato Gabriel DPM Left foot pain (Primary Dx); Chronic osteomyelitis of left foot (CMS/HCC); Dehiscence of operative wound, subsequent encounter; Ulcer of left heel, with fat layer exposed (CMS/HCC); Exostosis of left foot 03/12/2024 Telephone Orthopedic Surgery [place] [address] [phone] Gato Gabriel DPM 03/09/2024 1:45 PM EST Office Visit Orthopedic Surgery [place] [address] [phone] Gato Gabriel DPM Left foot pain (Primary [...] Morbid obesity (CMS/HCC) 08/14/2010 DX:Morb id obesity ([facility]) Hyperlipidemia 08/14/2010 DX:Hyperlipidemi a Osteomyelitis of ankle or fo ot, left, acute (CMS/HCC) Bone spur of foot left Arm vein blood clot R BICEP Diabetes 1.5, managed as type 2 (CMS/HCC) Port-A-Cath in place ROY R U PPER CHEST Family History Relation Name Status Comments Father (Age 68) [place], diabet es, hyperlipidemia Mother Alive HTN, diabetes, [...] AM EDT Office Visit Orthopedic Surgery - [place] [address] [phone] Hernesto Youssef, DPM [address] [phone] Health Maintenance Due Date Last Done Comments [...] left foot (CMS/HCC) Exostosis of left foot [place] PARTIAL EXCISION BONE TARSAL OR METATARSAL BONE EXCEPT TALUS/CALCANEUS 04/02/2024 7:30 AM EST Chronic osteomyelitis of left foot (CMS/HCC) Exostosis of left foot Case Notes CONMED [place] PARTIAL EXCISION BONE TARSAL OR METATARSAL BONE [...] WITH REPARATIVE CHANGES 04/06/2024 1:23 PM EST [facility] Clinical Information In TapZen @ 0810 04/06/2024 1:23 PM [facility] Gross Description A. Foot, [...] each. TERESO 1 one 04/06/2024 1:23 PM [facility] Disclaimer Unless otherwise specified, all tissue is 10% NB formalin fixed and paraffin embedded. 04/06/2024 1:23 PM [facility] Bone Structure of left foot / Unknown 04/02/2024 8:05 AM EST 04/02/2024 10:26 AM EST Comment:In FormalOpenbucks @ 08Gigaclear Gato Gabriel DP LAB PATHOLOGY ORDERABLES Fi nal Result [facility] [address] [place] [address], * (ABNORMAL) Culture wound deep (04/02/2024 8:05 AM EST) Culture, Wound Enterobacter cloacae complex(A) CATALINA 04/05/2024 11:18 AM EST [facility] Comment: The organism value for this result has been updated. These results have been appended to the previously preliminary verified report. This is an edited result. Previous organism was Gram negative bacilli on 04/03/2024 at 1105 EST. Gram Stain Result No polymorphonuclear leukocytes, No epithelial cells, and No organisms noted 04/05/2024 11:18 AM EST [facility] Swab Structure of left foot [...] LAB MICROBIOLOGY - GENERAL ORDERABLES Final Result [facility] [address] [place] [address], [place] [phone] * (ABNORMAL) POCT Glucose, blood (04/02/2024 6:15 AM EST) [facility] Glucose POCT 312(H) 70 - 100 mg/dL 04/02/2024 6:16 AM EST [facility] Blood Capillary blood specimen / Unknown 04/02/2024 6:15 AM EST 04/02/2024 6:17 AM EST us Gato Gabriel DPHermelindo LAB POINT OF CARE T EST DOCKED DEVICE UNSOLICITED RESULTS Final Result Performing Organization Address [facility]/ZIP Co de Phone Number [facility] [address] [place] [address], [place] [phone] * Annual BMP Blood Test (11/29/2010) [facility] Annual BMP Blood Test Abstracted Historical Provider HEALTH MAINTENANCE Final Result * (ABNORMAL) Hemoglobin A1c (11/29/2010) Hemoglobin A1C 8.2(A) 4.0 - 6.0 % Blood Venous blood specimen / Unknown [facility] Provider LAB BLOOD ORDERABLES Bibi l Result * (ABNORMAL) Lipid panel (11/29/2010) LDL/HDL Ratio 4 0 - 4 Triglycerides 88 0 - 150 mg/dL Cholesterol 200 0 - 200 mg/dL HDL 55 >=40 mg/dL LDL Cholesterol 128(A) 0 - 100 mg/dL Blood Venous blood specimen / Unknown [facility] Provider LAB BLOOD ORDERABLES Bibi l Result from Last 3 Months or Most Recently Relevant to Health Maintenance Insurance [facility] ADVANTAGE Advance Directives * Full Code [...] currently active code status orders. Care Teams Ship Washer Relationship Specialty Start Date End Date Shreyas Da Silva MD [address] [place] [address] Dr Sheila [place] PCP - General 11/04/23
== END 2024-06-08 09:26 | disposition home or self-care (01) ==
LOC: HO.NEURO 09:25
PROVIDERS: PCP Internal Medicine; Visit Provider Registered Nurse
DX: M54.12 Radiculopathy, cervical region (principal)
CPT/HCPCS: 95886; 95911

== ENCOUNTER 2024-06-26 07:30 | Outpatient (REF) | payer MEDICARE, SELFPAY ==
[2024-06-26 08:40] LABS: Estimated Average Glucose 349 mg/dL; Hemoglobin A1c % 13.8 % (<6.0)
[2024-06-26 09:00] LABS: Alanine Aminotransferase 16 U/L (0-40); Anion Gap 13 (12-20); Aspartate Amino Transferase 30 U/L (5-37); Blood Urea Nitrogen 13 mg/dL (9-16); Carbon Dioxide 26 mmol/L (22-29); Chloride 104 mmol/L (96-108); Cholesterol 159 mg/dL (<200); Estimated Glomerular Filt Rate > 60; Glucose Fasting 154 mg/dL (60-99); HDL Cholesterol 30 mg/dL (>40); LDL Cholesterol Calculated 97 mg/dL (<100); Potassium 4.6 mmol/L (3.3-5.1); Sodium 138 mmol/L (135-145); Triglycerides 162 mg/dL (<150)
== END 2024-06-26 07:31 | disposition home or self-care (01) ==
LOC: HO.LAB 07:30
PROVIDERS: Visit Provider Family Medicine
DX: I10 Essential (primary) hypertension (principal); E11.9 Type 2 diabetes mellitus without complications; E78.00 Pure hypercholesterolemia, unspecified
CPT/HCPCS: 36415; 80051; 80061; 82550; 82565; 82947; 83036; 84450; 84460; 84520

== ENCOUNTER 2024-06-30 09:46 | Outpatient (AMB) | payer MEDICARE, SELFPAY ==
--- NOTE | 2024-06-30 09:47 | MHC.PC.OV ---
Vital Signs 06/30/24 09:48 Height 6 ft Weight 294 lb BMI 39.9 BP 124/78 Respiration 16 Pulse 104 H Pulse Source Pulse Oximeter Temp 97.8 F Pulse Oximetry (%) 97 Oxygen Delivery Method Room Air Intake Visit Reasons: needed a 2 week f/u Retail Interior Designer Required: No Accompanied by: Self / Same As Patient Allergies penicillin G Allergy (Unknown, Verified 06/30/24 09:51) Unknown Tobacco use date assessed: 06/30/24 Dental Screening Dental Screen Date: 06/30/24 Did you have a dental visit in the last 12 months?: Yes Did you have a dental problem in the last 6 months where you did not have access to dental care?: No PFSH Medical History PAD (peripheral artery disease) Non-healing wound Sepsis 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 Fever Nocturnal hypoxemia Diabetes Restrictive lung disease RIGOBERTO (obstructive sleep apnea) Morbid obesity Surgical History Hx of amputation Hx of right inguinal hernia repair Hx of eye surgery Family History (Updated 06/30/24 @ 09:56 by JOCELYNE Álvarez) Father Diabetes Heart attack Mother Hypertension Pre-diabetes Social History Household Members: Family Housing: Apartment Do you presently have visiting nurse or other home services: No Alcohol intake: current Alcohol intake frequency: holidays/special occasions only Alcohol type: hard liquor Patient Tobacco Use Status: Former Tobacco user Second Hand Smoke Exposure: No service: No Current occupational status: retired Cognitive needs: No Hearing needs: No Vision needs: Yes (reading glasses) Questionnaire PHQ-9 Over the last 2 weeks, how often have you been bothered by any of the following problems? 1. Little interest or pleasure in doing things: not at all 2. Feeling down, depressed, or hopeless: not at all 3. Trouble falling or staying asleep, or sleeping too much: not at all 4. Feeling tired or having little energy: not at all 5. Poor appetite or overeating: not at all 6. Feeling bad about yourself - or that you are a failure or have let yourself or your family down: not at all 7. Trouble concentrating on things, such as reading the newspaper or watching television: not at all 8. Moving or speaking so slowly that other people could have noticed. Or the opposite - being so fidgety or restless that you have been moving around a lot more than usual: not at all 9. Thoughts that you would be better off or of hurting yourself in some way: not at all Total score: 0 Source: Developed by Drs. Oc Leslie, Albertina Sutherland, Gelacio Harrell and colleagues, with an educational andres from [employer]. Thrive Questionnaire Date Thrive assessed: 06/30/24 I am a: Patient What is your living situation today?: I have a steady place to live Within the past 12 months, did the food you bought not last and you didn't have the money to get more?: Never true Within the past 12 months, did you worry whether your food would run out before you got money to buy more?: Never true Do you have trouble paying for medicines?: No Do you have trouble getting transportation to medical appointments?: No Do you have trouble paying your heating and electricity bill?: No Do you have trouble taking care of your child, family member or friend?: No Do you have trouble with day-to-day activities such as bathing, preparing meals, shopping, managing finances, etc.?: No Are you currently unemployed and looking for a job?: No Are you interested in more education?: No Please select the resources that you would like help with: None THRIVE Score: 0 AUDIT C Alcohol Use Questionnaire (AUDIT-C) 1. How often do you have a drink containing alcohol?: Monthly or less 2. How many drinks containing alcohol do you have on a typical day when you are drinking?: 1 or 2 3. How often do you have six or more drinks on one occasion?: Never Total Score: 1 DANY-7 AMB Questionnaire DANY-7 Date DANY - 7 assessed: 06/30/24 Feeling nervous, anxious, or on edge: 0 = Not at all Not being able to stop or control worryin = Not at all Worrying too much about different things: 0 = Not at all Trouble relaxin = Not at all Being so restless that it is hard to sit still: 0 = Not at all Becoming easily annoyed or irritable: 0 = Not at all Feeling afraid as if something awful might happen: 0 = Not at all Total DANY-7 score (0-4 normal; 5-9 mild; 10-14 moderate; 15-21 severe): 0 Source: Developed by Drs. Oc Leslie, Albertina Sutherland, Gelacio Harrell and colleagues, with an educational andres from [employer]. Physical exam (Primary Care) Vital Signs: Last Vital Signs Temp 97.8 F 06/30/24 09:48 Pulse 104 H 06/30/24 09:48 Resp 16 06/30/24 09:48 BP 124/78 06/30/24 09:48 Pulse Ox 97 06/30/24 09:48 Oxygen Delivery Method Room Air 06/30/24 09:48 BMI result Body Mass Index 39.9 Tobacco/Smoking Status: Tobacco use Status Tobacco use date assessed 06/30/24 06/30/24 09:57 Patient Tobacco Use Status Former Tobacco user 06/30/24 09:47 PHQ-9: PHQ-9 Score PHQ-9: Total score 0 06/30/24 09:57 Thrive Assessment: Date of Thrive Assessment Date Thrive assessed 06/30/24 06/30/24 09:57 Coding Level of Care Code New Pt Level 4 (50000) Complex EM visit Add On G2211 Diagnoses Uncontrolled type 2 diabetes mellitus E11.65 Diabetic foot infection E11.628; L08.9 Assessment & Plan Assessment & Plan (1) Uncontrolled type 2 diabetes mellitus: Code(s): E11.65 - Type 2 diabetes mellitus with hyperglycemia Category: Medical Plan: Patient has now discontinued all antibiotics. Ozempic was restarted a week ago. Steroid injections have been stopped. Glipizide has been discontinued. Basaglar insulin dosage has been increased by 10 units at night. Patient was advised to check blood sugars. Repeat A1c in 2 months. (2) Diabetic foot infection: Comment: He has clean foot ulcer Code(s): E11.628 - Type 2 diabetes mellitus with other skin complications; L08.9 - Local infection of the skin and subcutaneous tissue, unspecified Category: Medical Plan: Condition is stable. Plan History of Present Illness The patient is a 58-year-old male presenting for diabetes management and medication adjustment. The patient has Type 2 Diabetes Mellitus and reports that his blood sugars fluctuated between 112 to 156 mg/dL, with his last A1c notably high. He had a recent foot infection leading to interrupted medication regimens, having been treated with vancomycin and daptomycin. He has since resumed Ozempic and remains on Basaglar insulin. There is noted leg and foot swelling, which has improved significantly but still has tenderness. He reports tingling in his hands, for which he will see a neurosurgeon due to bone spurs on his spine. Additionally, there are concerns about hypertension, but specifics were not discussed. 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 - Participated in gym activities, focusing on walking and gradual fitness improvement following a long period in a TDX boot. - Dietary habits involve minimal sugar and carbohydrate intake though consumes pasta, bread, and simple carbohydrate snacks. Review of Systems - Cardiovascular: Reports previous elevated heart rate 109 bpm, current heart rate 105 bpm. - Musculoskeletal: Reports leg and foot swelling; reports tingling in hands. Physical Exam General: Appearance normal, both eyes and all related structures Nutritional Appearance: Well nourished Orientation/consciousness: Patient oriented x3 Limitations: No limitations Head: Normal to inspection Neck: Normal visual inspection Chest: Normal palpation of entire chest wall Respiratory: Normal respiratory effort Neurology: Patient oriented x3, tingling in hands noted Results - Labs: Reports high A1c value. Plan The plan for managing Type 2 Diabetes Mellitus involves discontinuing Glipizide, increasing Basaglar insulin to 90 units at night while keeping the morning dosage at 30 units, and re-evaluating the patient's A1c in two months. The patient has resumed Ozempic therapy. He will have an upcoming neurosurgical consult for addressed bone spurs contributing to suspected peripheral neuropathy. The patient is encouraged to continue lifestyle modifications through exercise and a controlled diet, focusing on reduced carbohydrate intake. Patient was informed and verbally consented to the use of an ambient scribe for clinic note documentation during this visit. Discussion Notes I discussed the discontinuation of Glipizide with the patient due to the current insulin regimen being adequate. I recommended increasing Basaglar insulin from 80 to 90 units at night to improve glycemic control, while maintaining 30 units in the morning, and arranged for a future A1c re-evaluation. The patient is maintaining communication with his neurosurgical team regarding his spinal condition. Further consultations will be necessary for detailed investigative results from [facility] Neurosurgery. I emphasized the importance of an active lifestyle and low carbohydrate diet to aid in blood sugar control. Patient Instructions - Discontinue Glipizide immediately. - Increase nighttime Basaglar insulin dosage to 90 units. - Maintain morning Basaglar insulin dosage at 30 units. - Continue Ozempic as prescribed. - Schedule an A1c test in two months. - Engage in moderate exercise, focusing on walking to improve fitness safely. - Maintain a balanced diet with reduced carbohydrate intake. - Monitor for any new or worsening symptoms and report to the clinic.
[2024-06-30 09:48] VITALS: BP 124/78; PULSE 104; RESP 16; TEMP 36.6; O2SAT 97; BMI 39.9
--- OUTSIDE RECORDS SUMMARY | 2024-06-30 10:52 | XMS_ITS | Clinical Summary ---
Author Organization 175 [facility] Address [address] [place] [address] Phone Care Team Providers Care Production Support Consultant Name Role Phone Shreyas Da Silva MD Primary Care Provider [phone] Allergies Active Allergy Reactions Criticality Noted Date [...] 05/24/2024 9:00 AM EST Office Visit Orthopedic [address] [phone] Gato Gabriel DPM Controlled type 2 diabetes mellitus with diabetic polyneuropathy, without long-term current use of insulin (CMS/HCC) (Primary Dx); History of amputation of left foot through metatarsal bone (CMS/HCC); Charcot foot due to diabetes mellitus (CMS/HCC); Ulcer of toe of right foot, with fat layer exposed (CMS/HCC); Onychomycosis 05/10/2024 9:15 AM EST Office Visit Orthopedic [address] [phone] Gato Gabriel DPM Controlled type 2 diabetes mellitus with diabetic polyneuropathy, without long-term current use of insulin (CMS/HCC) (Primary Dx); History of amputation of left foot through metatarsal bone (CMS/HCC); Charcot foot due to diabetes mellitus (CMS/HCC); Onychomycosis; Callus; Localized edema 05/03/2024 8:30 AM EST Office Visit Orthopedic [address] [phone] Gato Gabriel DPM Postoperative state (Primary Dx) 04/26/2024 10:30 AM EST Office Visit Orthopedic Surgery [place] [phone] [phone] Gato Gabriel DPM Dehiscence of operative wound, subsequent encounter (Primary Dx); Ulcer of left heel, with fat layer exposed (CMS/HCC) 04/20/2024 8:30 AM EST Office Visit Orthopedic Surgery [place] [address] [phone] Gato Gabriel DPM Dehiscence of operative wound, subsequent encounter (Primary Dx); Ulcer of left heel, with fat layer exposed (CMS/HCC) 04/08/2024 8:30 AM EST Office Visit Orthopedic Surgery [place] [address] [phone] Gato Gabriel DPM Postoperative state (Primary Dx) 04/02/2024 7:30 AM EST Anesthesia Event [facility] OR [address] [place] [phone] Patrice Godinez MD Claudio [facility] 04/02/2024 7:30 AM EST - 04/02/2024 9:00 AM EST Surgery [facility] OR [address] [place] [phone] Gato Gabriel DPM EXCISION BONE SPUR LEFT LOWER EXTREMITY [55853 (CPT??)] 04/02/2024 6:00 AM EST - 04/02/2024 9:48 AM EST Hospital Encounter [facility] [place] [address] [place] [phone] Gato Gabriel DPM Chronic osteomyelitis of left foot (CMS/HCC); Exostosis of left foot Discharge Disposition: Home or Self Care from Last 3 Months Immunizations Name Administration [...] Morbid obesity (CMS/HCC) 08/14/2010 DX:Morb id obesity (HCC) Hyperlipidemia 08/14/2010 DX:Hyperlipidemi a Osteomyelitis of ankle or fo ot, left, acute (CMS/HCC) Bone spur of foot left Arm vein blood clot R BICEP Diabetes 1.5, managed as type 2 (CMS/HCC) Port-A-Cath in place ROY R U PPER CHEST Family History Relation Name Status Comments Father (Age 68) MD, diabet es, hyperlipidemia Mother Alive HTN, diabetes, [...] Care Team (Late st Contact Info) Description 07/02/2024 10:00 AM EDT Office Visit [address] [place] [address] Dayana Terry MD [address] [place] [address] 07/26/2024 8:45 AM EDT Office Visit Orthopedic Surgery - [place] [address] [phone] Hernesto Youssef DPM [address] [phone] Health Maintenance Due Date Last Done Comments [...] GLUCOSE BLOOD Routine 04/02/2024 6:15 AM EST HM ANNUAL BMP BLOOD TEST Routine 11/29/2010 HEMOGLOBIN A1C Routine 11/29/2010 LIPID PANEL Routine 11/29/2010 from Last 3 Months or Most Recently Relevant to Health Maintenance Results * XR Foot 3+ Views Left (04/08/2024 8:33 AM EST) Anatomical Region Laterality Modality Lower Extremities, Foot Left Computed Radiography Narrative 04/16/2024 3:58 PM EST Left foot 3 views weightbearing: Postoperative x-ray showing recent removal of exostosis from the plantar aspect of the left foot Gato Gabriel DPM IMG XR PROCEDURES Final Res ult * Tissue exam (04/02/2024 8:05 AM EST) Final Diagnosis Foot, Left 4th metatarsal - clean margin : -VIABLE APPEARING BONE WITH REPARATIVE CHANGES 04/06/2024 1:23 PM EST [facility] Clinical Information In Fanatic[employer] @ [employer] 04/06/2024 1:23 PM EST [facility] Gross Description A. Foot, Left, [...] each. TERESO 1 one 04/06/2024 1:23 PM EST [facility] Disclaimer Unless otherwise specified, all tissue is 10% NB formalin fixed and paraffin embedded. 04/06/2024 1:23 PM [facility] Bone Structure of left foot / Unknown 04/02/2024 8:05 AM EST 04/02/2024 10:26 AM EST Comment:In F[employer]Force @ [employer] Gato Gabriel DPM LAB PATHOLOGY ORDERABLES Fi nal Result [facility]) [facility] [address] [place] [address], [place] [phone] * (ABNORMAL) Culture wound deep (04/02/2024 8:05 AM EST) Culture, Wound Enterobacter cloacae complex(A) CATALINA 04/05/2024 11:18 AM EST [facility] Comment: The organism value for this result has been updated. These results have been appended to the previously preliminary verified report. This is an edited result. Previous organism was Gram negative bacilli on 04/03/2024 at 1105 EST. Gram Stain Result No polymorphonuclear leukocytes, No epithelial cells, and No organisms noted 04/05/2024 11:18 AM EST [facility] Swab Structure of left foot [...] LAB MICROBIOLOGY - GENERAL ORDERABLES Final Result [facility] [address] [place] [address], [place] [phone] * (ABNORMAL) POCT Glucose, blood (04/02/2024 6:15 AM EST) Glucose POCT 312(H) 70 - 100 mg/dL 04/02/2024 6:16 AM EST [facility] Blood Capillary blood specimen / Unknown 04/02/2024 6:15 AM EST 04/02/2024 6:17 AM EST Gato Gabriel DPM LAB POINT OF CARE T EST DOCKED DEVICE UNSOLICITED RESULTS Final Result [facility] [address] [place] [address], * Annual BMP Blood Test (11/29/2010) [facility] Annual BMP Blood Test Abstracted Historical Provider HEALTH MAINTENANCE Final Result * (ABNORMAL) Hemoglobin A1c (11/29/2010) [facility] Hemoglobin A1C 8.2(A) 4.0 - 6.0 % Blood Venous blood specimen / Unknown Historical Provider LAB BLOOD ORDERABLES Bibi l Result * (ABNORMAL) Lipid panel (11/29/2010) [facility] LDL/HDL Ratio 4 0 - 4 Triglycerides 88 0 - 150 mg/dL Cholesterol 200 0 - 200 mg/dL HDL 55 >=40 mg/dL LDL Cholesterol 128(A) 0 - 100 mg/dL Blood Venous blood specimen / Unknown Historical Provider LAB BLOOD ORDERABLES Bibi l Result from Last 3 Months or Most Recently Relevant to Health Maintenance Insurance [employer] Advance Directives * Full Code [...] currently active code status orders. Care Teams Production Support Consultant Relationship Specialty Start Date End Date Shreyas Da Silva MD [address] [place] [address] Dr Sheila MA PCP - General 11/04/23
== END 2024-06-30 10:20 | disposition home or self-care (01) ==
LOC: HO.HMCHD 09:46
PROVIDERS: Visit Provider Internal Medicine
DX: E11.65 Type 2 diabetes mellitus with hyperglycemia (principal); E11.628 Type 2 diabetes mellitus with other skin complications; L08.9 Local infection of the skin and subcutaneous tissue, unspecified

== ENCOUNTER → 2024-06-30 09:46 | Outpatient (BNVA) | payer MEDICARE, SELFPAY | PROVIDERS: Visit Provider Internal Medicine | DX: E11.65 Type 2 diabetes mellitus with hyperglycemia (principal); E11.628 Type 2 diabetes mellitus with other skin complications; L08.9 Local infection of the skin and subcutaneous tissue, unspecified | CPT/HCPCS: 99202 ==

== ENCOUNTER 2024-07-04 11:09 | Emergency (ER) | payer MEDICARE, MEDICAID, SELFPAY ==
--- NOTE | ~2024-07-04 | CT_ITS ---
CLINICAL HISTORY: posterior headache, nausea, vomiting CT Head without contrast. CT angiography head and neck with contrast. 3D Postprocessing. Comparison: None Findings: HEAD CT: No intra-axial mass, midline shift, hydrocephalus, or acute hemorrhage. There is atrophy-like change or and matter disease. There is no sinus or mastoid fluid. The orbits are unremarkable. No skull fracture. HEAD AND NECK CTA: Examination is limited by suboptimal opacification of the arterial structures due to the phase of contrast. Aortic arch and cervical great vessels are patent. Atherosclerosis calcification of the carotid bulb and cavernous segment of the internal carotid arteries. There is [id number] stenoses of the bilateral proximal internal carotid artery above the bifurcation. Intracranial arteries are patent. No aneurysm, dissection, or occlusion. No abnormal intracranial enhancement. The visualized thyroid gland is unremarkable. No cervical mass or fluid collection. Lung apices clear. No acute fracture. IMPRESSION: 1. No acute intracranial findings on the noncontrast CT. 2. Patent head and neck CTA with limitation due to the phase of contrast. [id number] stenoses of the bilateral proximal internal carotid artery above the bifurcation. Correlation with Doppler ultrasound findings as indicated. This document has been electronically signed by: Breezy Scott MD on 07/04/2024 14:33:08
[2024-07-04 11:13] VITALS: BP 157/94; PULSE 109; RESP 18; TEMP 36.7; O2SAT 97; BMI 39.9
--- NOTE | 2024-07-04 11:13 | ED_ITS ---
HPI - Headache General Chief Complaint: Headache Stated Complaint: headache, neck pain Time Seen by Provider: 07/04/24 11:40 Source: patient Mode of arrival: ambulatory Limitations: no limitations History of Present Illness ED Provider: Irene Nevarez PA-C HPI Narrative: Patient is a 58 year old assigned male at with a history of RIGOBERTO, PAD, DM, and left 5th metatarsal amputation presenting to the emergency department today with a headache, neck pain, nausea, and 1 episode of vomiting. Patient states that he woke up this morning with posterior neck pain that radiates into his head and he had an episode of vomiting. Patient states that he has seen a neurosurgeon for previous neck pain / bilateral upper extremity neuropathy for which they stated he did not need surgery at this time. Patient denies any dizziness, lightheadedness, abdominal pain, fever, chills, blurry vision, double vision, loss of vision, chest pain, difficulty breathing, shortness of breath, back pain, night sweats, pain with urination, increased urinary frequency, increased urinary urgency, blood in his urine or stool, syncope or a near syncopal episode, recent trauma or falls, bowel incontinence, bladder incontinence, or any other complaints at this time. Related Data Home Medications ?Medication ?Instructions ?Recorded ?Confirmed blood sugar diagnostic (FreeStyle 10/07/20 10/24/23 Test strips) clopidogrel 75 mg tablet 1 tab PO DAILY 10/07/20 03/10/24 simvastatin 40 mg tablet 40 mg PO DAILY@1900 10/07/20 03/10/24 semaglutide 0.25 mg or 0.5 mg (2 2 mg subcut SA 11/22/22 03/10/24 mg/3 mL) subcutaneous pen injector (Ozempic) metformin 1,000 mg tablet 1,000 mg PO BID 10/02/23 03/10/24 empagliflozin 10 mg tablet 10 mg PO DAILY 01/08/24 03/10/24 (Jardiance) lisinopril 2.5 mg tablet 2.5 mg PO DAILY 02/09/24 03/10/24 omeprazole 20 mg capsule,delayed 20 mg PO BID@0630,1630 03/10/24 03/10/24 release Previous Rx's ?Medication ?Instructions ?Recorded blood sugar diagnostic #50 ea 12/27/22 insulin glargine 100 unit/mL (3 23 unit (0.23 mL) subcut DAILY #15 03/16/24 mL) subcutaneous pen (Basaglar mL KwikPen U-100 Insulin) insulin glargine 100 unit/mL (3 56 unit (0.56 mL) subcut BEDTIME 03/16/24 mL) subcutaneous pen (Basaglar #15 mL KwikPen U-100 Insulin) cyclobenzaprine 5 mg tablet 5 mg PO TID PRN muscle spasm 7 07/04/24 days #21 tabs Allergies Allergy/AdvReac Type Severity Reaction Status Date / Time penicillin G Allergy Unknown Unknown Verified 07/04/24 11:16 Review of Systems 2 Constitutional: Constitutional: Reports no additional constitutional complaints, Denies chills, Denies fever(s), Reports headache(s) and Denies night sweats Eyes: Eyes: Reports no additional eye complaints, Denies blurry vision, Denies change in vision, Denies diplopia, Denies eye discharge, Denies loss of vision and Denies eye pain ENT: Denies dizziness, Reports headache(s) and Reports neck pain Cardiovascular: Cardiovascular: Reports no additional cardiovascular complaints, Denies chest pain, Denies lightheadedness, Denies Loss of Consciousness and Denies dyspnea Respiratory: Respiratory: Reports no additional respiratory complaints and Denies dyspnea Gastrointestinal: Gastrointestinal: Reports no additional gastrointestinal complaints, Denies abdominal pain, Denies melena, Denies hematochezia, Denies change in bowel habits, Denies change in stool character, Reports nausea and Reports vomiting (once) Genitourinary: Genitourinary: Reports no additional male genitourinary complaints, Denies hematuria, Denies oliguria, Denies difficulty urinating, Denies dysuria, Denies urinary frequency, Denies urinary hesitancy, Denies urinary incontinence and Denies urinary urgency Musculoskeletal: Musculoskeletal: Reports no additional musculoskeletal complaints, Reports neck pain, Denies numbness and Denies tingling Neurologic: Denies dizziness, Reports headache(s), Denies loss of vision, Denies numbness and Denies tingling Psychiatric: Psychiatric: Reports no additional psychiatric complaints Endocrine: Endocrine: Reports no additional endocrine complaints Hematologic/Lymphatic: Hematologic/Lymphatic: Reports no additional hematologic/lymphatic complaints Allergic/Immunologic: Allergic/Immunologic: Reports no additional allergic/immunologic complaints PMFSH Past Medical History Attestation statement: The following information was validated with the patient. Source: old records reviewed and nursing notes reviewed Medical History PAD (peripheral artery disease) Non-healing wound Sepsis 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 Fever Nocturnal hypoxemia Diabetes Restrictive lung disease RIGOBERTO (obstructive sleep apnea) Morbid obesity Surgical History Hx of amputation Hx of right inguinal hernia repair Hx of eye surgery Family History Family History Father Diabetes Heart attack Mother Hypertension Pre-diabetes Social History Social History Household Members: Family Housing: Apartment Do you presently have visiting nurse or other home services: No Unable to assess alcohol history related to: Unknown Alcohol intake: current Alcohol intake frequency: holidays/special occasions only Alcohol type: hard liquor Patient Tobacco Use Status: Former Tobacco user Second Hand Smoke Exposure: No service: No Current occupational status: retired Cognitive needs: No Hearing needs: No Vision needs: Yes (reading glasses) Physical Exam 2 Vital Signs: Vital Signs: Last Vital Signs Temp 99.0 F 07/04/24 15:26 Pulse 99 07/04/24 15:26 Resp 16 07/04/24 15:26 BP 135/80 07/04/24 15:26 Pulse Ox 96 07/04/24 15:26 O2 Del Method Room Air 07/04/24 15:26 BMI result Body Mass Index 39.9 Const: General: cooperative, no acute distress, alert and awake Nutritional Appearance: well nourished Orientation/consciousness: patient oriented x3 Limitations: no limitations HEENT: Head: Yes normal to inspection and Yes atraumatic Ears: hearing grossly normal bilaterally and external ears normal General nose exam: Normal external nose present, no nasal discharge noted and no epistaxis Face and sinus: Yes normal facial exam, No abrasion and No laceration Mouth: Normal oral and palatal mucosa present, no drooling and no muffled voice Eyes: General: appearance normal, both eyes and all related structures P eriorbital: periorbital findings normal Eyelids: Yes eyelids normal C onjunctivae: conjunctivae normal Pupils: Equal, round and reactive pupils present EOM: EOMs intact bilaterally Neck: Neck: Yes normal visual inspection, Yes full ROM and Yes no lymphadenopathy Chest: Chest palpation & inspection: normal inspection of the chest Resp: Effort & Inspection: normal respiratory effort and able to speak in complete sentences GI: Inspection: Yes normal to inspection Neuro: General: patient oriented x3, moves all extremities and CN's II-XI intact bilaterally Cranial nerves: Yes Equal, round and reactive pupils present Cognition (Neuro): normal cognition Extrem: General: Yes normal to inspection, Yes full ROM and Yes capillary refill normal Psych: Appearance: grossly normal Mental Status: mental status grossly normal Affect: normal affect Attitude: cooperative Thought process: N ormal thought process present Thought content: Normal thought content present Insight: Good insight present (Psych) Course Course Course Narrative: This is a Rapid Medical Examination (RME) performed by Levy Chandler PA-C in triage. Full HPI, ROS, assessment and treatment plan per primary provider in the Main ED. 58 yo male with history of DM, restrictive lung disease, hx osteomyelitis and MRSA bacteremia, spinal bone spurs (saw neurosurg this week) who presents to presents to the ER for evaluation of acute onset of posterior headache that started when he woke up this morning. Radiates down his back. Vomited x1 this morning. Pain 9.5/10. No vision changes. Has had chronic bilateral hand tingling and numbness x6 weeks. No new deficits. No fevers. Plan: basic labs, viral PCR. imaging per primary provider Medications Administered Discontinued Medications Generic Name Dose Route Start Last Admin Trade Name Freq PRN Reason Stop Dose Admin Cyclobenzaprine HCl 5 mg 07/04/24 11:55 07/04/24 12:39 Cyclobenzaprine Hcl 5 Mg Tablet PO 07/04/24 11:56 5 mg ONCE ONE Administration Iohexol 100 ml 07/04/24 13:28 07/04/24 13:29 Iohexol 350 Mg/Ml 100 Ml Infus..Btl IV 07/04/24 13:29 70 ml ONCE ONE Administration Methylprednisolone Sodium Succinate 60 mg 07/04/24 11:55 07/04/24 12:39 Methylprednisolone Sod Succ 125 Mg/2 Ml Vial IVPUSH 07/04/24 11:56 60 mg ONCE ONE Administration Ondansetron HCl 4 mg 07/04/24 11:55 07/04/24 12:39 Ondansetron Hcl 4 Mg/2 Ml Vial IVPUSH 07/04/24 11:56 4 mg ONCE ONE Administration Medical Decision Making Medical Decision Making [facility] Narrative: Patient is a 58 year old assigned male at with a history of RIGOBERTO, PAD, DM, and left 5th metatarsal amputation presenting to the emergency department today with a headache, neck pain, nausea, and 1 episode of vomiting. Patient's physical exam was unremarkable. Patient's blood work was unremarkable. Patient's CTA showed no acute process but did show mild-moderate bilateral ICA stenosis. Patient had no focal deficits and his current clinical presentation does not warrant emergent US of the bilateral carotid arteries. I explained my physical exam findings as well as all test results to the patient. I answered all questions asked by the patient. Patient received IV Solu-medrol and PO Flexeril which, upon re-evaluation, he stated it helped his symptoms significantly. I stressed the importance of the patient taking his medication as directed (either prescribed or as the over the counter packaging recommends). I stressed the importance of the patient following up with his primary care provider and vascular surgeon. I stressed the importance of the patient returning to the emergency department immediately if his symptoms were to worsen or if he were to develop any dizziness, shortness of breath, difficulty breathing, chest pain, blurry vision, loss of vision, nausea, vomiting, abdominal pain, fever, chills, back pain, or any other complaints. Patient verbalized agreement and understanding with this treatment plan and discharge. Patient declined to be prescribed PO corticosteroids due to concerns regarding his sugar. Differential Diagnosis Differential Diagnoses: The differential diagnosis associated with the presentation includes Cervical stenosis Neck pain Cervical strain Admission/Observation Consideration of admission/observation: Escalation of care including admission/observation considered Patient would have been admitted to the hospital had his work up had any findings where hospital admission was appropriate and his clinical presentation warranted hospital admission. Lab Data [facility] Lab Attestation statement: I reviewed the patient's lab results. My interpretation of these results are in the [facility] Rationale portion of this note. 07/04/24 12:28 07/04/24 12:28 Labs: Lab Results 07/04/24 Range/Units 12:28 WBC 8.4 (4.8-10.8) X10*3/uL RBC 4.14 L (4.60-5.80) X10*6/uL Hgb 12.2 L (14.0-18.0) g/dl Hct 36.3 L (42.0-52.0) % MCV 87.7 (80.0-98.0) fL MCH 29.5 (27.0-33.0) pg MCHC 33.6 (31.0-36.0) g/dl RDW 14.2 (11.0-16.0) % Plt Count 247 (160-400) X10*3/uL MPV 10.3 (9.4-12.4) fL Immature Gran % (Auto) 0.2 (0.0-0.4) % Neut % (Auto) 69.7 (45-73) % Lymph % (Auto) 15.5 L (20-40) % [place] % (Auto) 8.2 (2-11) % Eos % (Auto) 5.3 H (0-4) % Baso % (Auto) 1.1 (0-2) % Lymph # (Auto) 1.3 (1.2-4.9) X10*3/uL [place] # (Auto) 0.7 (0.1-1.2) X10*3/uL Eos # (Auto) 0.4 (0.0-0.4) X10*3/uL Baso # (Auto) 0.1 (0.0-0.2) X10*3/uL Abs Immat Gran (auto) 0.02 (0.00-0.03) X10*3/uL Absolute Neuts (auto) 5.8 (2.0-8.3) x10*3/uL Absolute Nucleated RBC 0.000 (0.0-0.012) X10*3/uL Nucleated RBC % (auto) 0.0 (0.0-0.2) /100WBC ESR 91 H (0-15) MM/HR Sodium 140 (135-145) mmol/L Potassium 4.3 (3.3-5.1) mmol/L Chloride 105 (96-108) mmol/L Carbon Dioxide 25 (22-29) mmol/L Anion Gap 14 (12-20) BUN 13 (9-16) mg/dL Creatinine 1.05 (0.5-1.4) mg/dL Estim Creat Clear Calc 109.6 Estimated GFR > 60 Random Glucose 130 H (60-115) mg/dL Calcium 9.2 (8.4-10.2) mg/dL Magnesium 1.8 (1.6-2.6) mg/dL Total Bilirubin 0.6 (0.0-1.0) mg/dL Direct Bilirubin 0.2 (0.0-0.5) mg/dL AST 22 (5-37) U/L ALT 14 (0-40) U/L Alkaline Phosphatase 94 (39-117) U/L C-Reactive Protein 1.32 H (< or = 0.50) mg/dL Total Protein 8.3 H (6.5-8.0) g/dL Albumin 3.8 (3.5-5.0) g/dL Hold Red Top See Note Influenza Type A (PCR) NEGATIVE (Negative) Influenza Type B (PCR) NEGATIVE (Negative) RSV RNA Qual (PCR) NEGATIVE (Negative) SARS-CoV-2 RNA (RT-PCR) NEGATIVE (Negative) Independent Interpretation I performed an independent interpretation of an: CT Scan Interpretation: My interpretation is in agreement with the radiologist's impression of this imaging study. L Report Number: [id number]: Total DLP = 1558.00 mGy-cm CLINICAL HISTORY: posterior headache, nausea, vomiting CT Head without contrast. CT angiography head and neck with contrast. 3D Postprocessing. Comparison: None Findings: HEAD CT: No intra-axial mass, midline shift, hydrocephalus, or acute hemorrhage. There is atrophy-like change or and matter disease. There is no sinus or mastoid fluid. The orbits are unremarkable. No skull fracture. HEAD AND NECK CTA: Examination is limited by suboptimal opacification of the arterial structures due to the phase of contrast. Aortic arch and cervical great vessels are patent. Atherosclerosis calcification of the carotid bulb and cavernous segment of the internal carotid arteries. There is [id number] stenoses of the bilateral proximal internal carotid artery above the bifurcation. Intracranial arteries are patent. No aneurysm, dissection, or occlusion. No abnormal intracranial enhancement. The visualized thyroid gland is unremarkable. No cervical mass or fluid collection. Lung apices clear. No acute fracture. IMPRESSION: 1. No acute intracranial findings on the noncontrast CT. 2. Patent head and neck CTA with limitation due to the phase of contrast. [id number] stenoses of the bilateral proximal internal carotid artery above the bifurcation. Correlation with Doppler ultrasound findings as indicated. This document has been electronically signed by: Breezy Scott MD on 07/04/2024 14:33:08 Dictated By: Breezy Scott MD Signed By: Electronically signed by Breezy Scott MD 07/04/24 1433 Radiology Impression Discussion of test interpretation with radiology: I have reviewed the radiologist's reading. Prescription Management I considered prescription management with: Pain Medication (patient prescribed flexeril) Chronic Conditions Patient?s care impacted by: Diabetes Discharge Plan Discharge Clinical Impression: Cervical spinal stenosis Patient Disposition: Home, Self-Care Instructions: Cervical Spinal Stenosis (ED) Additional Instructions: Your work up today was reassuring. Your labs were unremarkable. Your CT scan showed mild stenosis of the bilateral (both) internal carotid arteries. This does not need emergent intervention but you should follow up with your Vascular surgeon about this. Follow up with your primary care provider. Return to the emergency department immediately if your symptoms worsen or if you develop any numbness, tingling, dizziness, shortness of breath, difficulty breathing, chest pain, blurry vision, loss of vision, nausea, vomiting, abdominal pain, fever, chills, back pain, or any other complaints. Please see the information below about our Patient Portal. If you are not yet enrolled in the [facility] Patient Portal, you will receive an enrollment email invitation following your visit to any [facility] setting. You may also self-enroll in the Patient Portal by visiting our website: [email or web address] The following information is required to access the Patient Portal: - Your [facility] Medical Record Number - Your personal home email address (must match what is in your electronic medical record, Registration staff can assist with this) - Name - Date of Capabilities of the Patient Portal: - Message some providers - View upcoming appointments - Access your health summary, medical history, and visit history - View current conditions and allergies - View procedure and lab results - View your medications, including guidelines, side effects, and precautions - Complete pre-appointment questionnaires requested by your provider - Ready summary reports of your office visits and procedures To access the Patient Portal Mobile Oscar, follow these directions: - Search [employer] in the Oscar Store or Google Play Store - Download the Oscar - Search for [facility] - Enter your login/password Prescriptions: New cyclobenzaprine 5 mg tablet 5 mg PO TID PRN (Reason: muscle spasm) 7 Days Qty: 21 0RF No Action (DME) blood sugar diagnostic Strip See Rx Instructions .Route Qty: 50 6RF Rx Instructions: As directed clopidogrel 75 mg tablet 1 tab PO DAILY (DME) FreeStyle Test Strip MISCELLANEOUS simvastatin 40 mg tablet 40 mg PO DAILY@1900 Jardiance 10 mg tablet 10 mg PO DAILY omeprazole 20 mg capsule,delayed release(DR/EC) 20 mg PO BID@0630,1630 insulin glargine [Basaglar KwikPen U-100 Insulin] 100 unit/mL (3 mL) insulin pen 56 unit subcut BEDTIME Qty: 15 0RF insulin glargine [Basaglar KwikPen U-100 Insulin] 100 unit/mL (3 mL) insulin pen 23 unit subcut DAILY Qty: 15 0RF Ozempic 0.25 mg or 0.5 mg (2 mg/3 mL) pen injector 2 mg subcut SA metformin 1,000 mg tablet 1,000 mg PO BID lisinopril 2.5 mg tablet 2.5 mg PO DAILY Referrals: Zaheer Tucker MD [Primary Care Provider] - Interventions: ED Discharge Assessment Last Done: 07/04/24 15:26 Discharge Date/Time: 07/04/24 15:27 Print Language: Wolof
[2024-07-04 12:35] LABS: MANUAL DIFF FLAG NO
[2024-07-04] MEDS: methylPREDNISolone Sod Succ 125 MG/2 ML VIAL 60 MG IVPUSH (12:39)
[2024-07-04] MEDS: Cyclobenzaprine HCl 5 MG TABLET PO (12:39)
[2024-07-04] MEDS: ondansetron HCL 4 MG/2 ML VIAL IVPUSH (12:39)
[2024-07-04 12:40] LABS: Basophils Absolute Auto 0.1 X10*3/uL (0.0-0.2); Basophils Percent Auto 1.1 % (0-2); Eosinophils Absolute Auto 0.4 X10*3/uL (0.0-0.4); Eosinophils Percent Auto 5.3 % (0-4); Hematocrit 36.3 % (42.0-52.0); Hemoglobin 12.2 g/dl (14.0-18.0); Imm Gran Abs Auto 0.02 X10*3/uL (0.00-0.03); Imm Gran Pct Auto 0.2 % (0.0-0.4); Lymphocytes Absolute Auto 1.3 X10*3/uL (1.2-4.9); Lymphocytes Percent Auto 15.5 % (20-40); Mean Corpuscular HGB Conc 33.6 g/dl (31.0-36.0); Mean Corpuscular Hemoglobin 29.5 pg (27.0-33.0); Mean Corpuscular Volume 87.7 fL (80.0-98.0); Mean Platelet Volume 10.3 fL (9.4-12.4); Monocytes Absolute Auto 0.7 X10*3/uL (0.1-1.2); Monocytes Percent Auto 8.2 % (2-11); Neutrophils Absolute Auto 5.8 x10*3/uL (2.0-8.3); Neutrophils Percent Auto 69.7 % (45-73); Platelet Count 247 X10*3/uL (160-400); Red Blood Count 4.14 X10*6/uL (4.60-5.80); Red Cell Distribution Width 14.2 % (11.0-16.0); White Blood Count 8.4 X10*3/uL (4.8-10.8)
[2024-07-04 12:41] VITALS: BP 143/85; PULSE 97; RESP 14; TEMP 37.4; O2SAT 98
[2024-07-04 12:57] LABS: Alanine Aminotransferase 14 U/L (0-40); Albumin Level 3.8 g/dL (3.5-5.0); Alkaline Phosphatase 94 U/L (39-117); Anion Gap 14 (12-20); Aspartate Amino Transferase 22 U/L (5-37); Bilirubin Direct 0.2 mg/dL (0.0-0.5); Bilirubin Total 0.6 mg/dL (0.0-1.0); Blood Urea Nitrogen 13 mg/dL (9-16); C Reactive Protein 1.32 mg/dL (< or = 0.50); Calcium 9.2 mg/dL (8.4-10.2); Carbon Dioxide 25 mmol/L (22-29); Chloride 105 mmol/L (96-108); Creatinine Clr Calc Pharmacy 109.6; Estimated Glomerular Filt Rate > 60; Glucose Random 130 mg/dL (60-115); Magnesium 1.8 mg/dL (1.6-2.6); Potassium 4.3 mmol/L (3.3-5.1); Sodium 140 mmol/L (135-145); Total Protein 8.3 g/dL (6.5-8.0)
[2024-07-04 13:13] LABS: Erythrocyte Sedimentation Rate 91 MM/HR (0-15)
[2024-07-04 13:21] LABS: Influenza A PCR NEGATIVE (Negative); Influenza B PCR NEGATIVE (Negative); Resp Syncy Virus RNA Qual PCR NEGATIVE (Negative); SARS COV2 PCR INHOUSE NEGATIVE (Negative)
[2024-07-04] MEDS: iohexoL 350 MG/ML 100 ML INFUS..BTL IV (13:29)
[2024-07-04 14:16] VITALS: BP 118/80; PULSE 96; RESP 16; TEMP 36.8; O2SAT 97
[2024-07-04 15:19] VITALS: BP 135/80; PULSE 99; RESP 16; TEMP 37.2; O2SAT 96
[2024-07-04 15:26] VITALS: BP 135/80; PULSE 99; RESP 16; TEMP 37.2; O2SAT 96
== END 2024-07-04 15:27 | disposition home or self-care (01) ==
PROVIDERS: Physician Assistant; Emergency Provider Emergency Medicine; PCP Internal Medicine
DX: M48.02 Spinal stenosis, cervical region (principal); M54.2 Cervicalgia; Z03.818 Encounter for observation for suspected exposure to other biological agents ruled out; E11.9 Type 2 diabetes mellitus without complications; E66.9 Obesity, unspecified; Z68.39 Body mass index [BMI] 39.0-39.9, adult; Z79.4 Long term (current) use of insulin; Z79.899 Other long term (current) drug therapy
CPT/HCPCS: 0241U; 36415; 70496; 70498; 80048; 80076; 83735; 85025; 85652; 86140; 96374; 96375; 99284; 99285; J2405; J2919; Q9967

== ENCOUNTER → 2024-07-04 11:55 | Outpatient (BNV) | payer MEDICARE, MEDICAID, SELFPAY | PROVIDERS: Emergency Provider Emergency Medicine; PCP Internal Medicine; Visit Provider Nuclear Medicine | DX: R51.9 Headache, unspecified (principal); R11.2 Nausea with vomiting, unspecified | CPT/HCPCS: 70496; 70498 ==

== ENCOUNTER 2024-10-27 11:21 | Emergency (ER) | payer MEDICARE, MEDICAID, SELFPAY ==
--- NOTE | 2024-10-27 11:45 | ED.GENADULT ---
HPI - General Adult General Chief complaint: Back Pain/Injury Stated complaint: Kidney pain Time Seen by Provider: 10/27/24 14:50 History of Present Illness ED Provider: Scottie Roy MD HPI narrative: [age] male with left flank pain about 2 days constant sharp and deep. No dysuria hematuria no history of kidney stones or kidney abnormalities. No recent injuries or fall. Denies numbness tingling weakness or other neurologic complaints. No midline back pain or IV drug use. Denies abdominal pain he is a former smoker diabetic. Related Data Home Medications ?Medication ?Instructions ?Recorded ?Confirmed simvastatin 40 mg tablet 40 mg PO DAILY@1900 10/07/20 03/10/24 Held on 03/15/24. Instructions: Resume on 04/27/24. semaglutide 0.25 mg or 0.5 mg (2 2 mg subcut SA 11/22/22 03/10/24 mg/3 mL) subcutaneous pen injector (Ozempic) omeprazole 20 mg capsule,delayed 20 mg PO BID@0630,1630 03/10/24 03/10/24 release Previous Rx's ?Medication ?Instructions ?Recorded blood sugar diagnostic #50 ea 12/27/22 cyclobenzaprine 5 mg tablet 5 mg PO TID PRN muscle spasm 7 07/04/24 days #21 tabs Jardiance 10 mg tablet 10 mg PO DAILY #90 tabs 08/21/24 (empagliflozin) clopidogrel 75 mg tablet 75 mg PO DAILY #90 tabs 08/24/24 lisinopril 2.5 mg tablet 2.5 mg PO DAILY #90 tabs 08/24/24 metformin 1,000 mg tablet 1,000 mg PO BID #180 tabs 08/24/24 Ozempic 2 mg/dose (8 mg/3 mL) 2 mg (0.75 mL) subcut QWEEK #3 mL 10/15/24 subcutaneous pen injector (semaglutide) blood sugar diagnostic (FreeStyle #300 ea 10/15/24 Test strips) insulin glargine 100 unit/mL (3 See Rx Instructions .Route 10/19/24 mL) subcutaneous pen (Basaglar .COMPLEX #45 mL KwikPen U-100 Insulin) Allergies Allergy/AdvReac Type Severity Reaction Status Date / Time penicillin G Allergy Unknown Unknown Verified 10/27/24 11:50 [facility] Past Medical History Medical History PAD (peripheral artery disease) Non-healing wound Sepsis 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 Fever Nocturnal hypoxemia Diabetes Restrictive lung disease RIGOBERTO (obstructive sleep apnea) Morbid obesity Surgical History Hx of amputation Hx of right inguinal hernia repair Hx of eye surgery Family History Family History Father Diabetes Heart attack Mother Hypertension Pre-diabetes Social History Social History Household Members: Family Housing: Apartment Do you presently have visiting nurse or other home services: No Unable to assess alcohol history related to: Unknown Alcohol intake: current Alcohol intake frequency: holidays/special occasions only Alcohol type: hard liquor Patient Tobacco Use Status: Former Tobacco user Smoked in Last 30 Days: No Second Hand Smoke Exposure: No Use of substances other than those prescribed or required for medical reasons: No Advance Directives: No Advance Directives Information Provided: No service: No Current occupational status: retired Cognitive needs: No Hearing needs: No Vision needs: Yes (reading glasses) Physical Exam ED Vital Signs: Vital Signs - 24 hr 10/27/24 11:46 10/27/24 14:38 10/27/24 16:33 Temperature 98.6 F 97.7 F 97.9 F Pulse Rate 90 74 90 Respiratory Rate 16 16 18 Blood Pressure 115/65 126/72 116/71 Pulse Oximetry 97 100 97 Oxygen Delivery Method Room Air Room Air Room Air BMI result Body Mass Index 38.6 EXAM: Gen: Alert, awake, well appearing, well hydrated. Head: Atraumatic Eyes: Anicteric, Normal conjunctiva. ENT: Moist mucosa, no pallor. ? Neck: Supple. Skin: ?No observable rash or bruising on exposed or examined skin Respiratory: Breathing comfortably, No distress.Clear to auscultation bilaterally, symmetric chest expansion, No wheeze, rales, ronchi. Cardiovascular: Regular rate and rhythm. No murmurs or rub. Well perfused periphery, warm extremities. No edema. ? Abdominal: No focal tenderness. Soft, no objective distension. No palpable masses or obvious organomegaly. ?No guarding, no rebound tenderness or other peritoneal findings. Intact femoral pulses. : Moderate left flank tenderness without bruising or crepitus or skin rash Neuro: Alert. Gross movement of all extremities intact. ? Psych: Calm. Cooperative. MSK: No grossly visible deformity. Vital signs: See flowsheet Course Course Course Narrative: This is an RME: Additional HPI, ROS, PE not included below will be deferred to primary provider. RME assessment and note performed by: Karla Chavez PA-C This is a [id number]-male with a PMH significant for HLD, insulin-dependent type 2 diabetes, peripheral vascular disease, hx of osteo, and RIGOBERTO, here with left sided flank pain x 3-4 days. Reporting urinary frequency and urgency. No nausea, vomiting, diarrhea or constipation. No known hx of kidney stones or kidney disease. Plan: Labs, UA, further ER eval needed Procedures Procedure Narrative Procedure Narrative: EMERGENCY ULTRASOUND INTERPRETATION-Limited Retroperitoneal Ultrasound Aorta (AAA) [This study was ordered, performed, and interpreted by myself. The study reveals: Impression: NO EVIDENCE OF AAA positive for ectasia or pre aneurysmal measurements ] [Indication: ABDOMINAL PAIN / FLANK PAIN / HYPOTENSION Abdominal Aorta: -Proximal Abdominal Aorta: Positive ectasia measurements between 2 and 3 cm of the aorta. -Distal Abdominal Aorta: Positive ectasia measurements between 2 and 3 cm of the aorta Performed by: Scottie Roy MD Images were stored CPT: 59629] ___ EMERGENCY ULTRASOUND INTERPRETATION-Limited Retroperitoneal (Renal) [This study was ordered, performed, and interpreted by myself. The study reveals: Impression: NO EVIDENCE OF UROLOGIC OBSTRUCTION] [Indication: FLANK PAIN Bladder: ANECHOIC URINE Left Kidney: NO HYDRONEPHROSIS Performed by: Scottie Roy MD Images were stored CPT: 98370] Medical Decision Making Lab Data 10/27/24 12:20 10/27/24 12:20 Labs: Lab Results 10/27/24 10/27/24 Range/Units 12:20 12:28 WBC 9.3 (4.8-10.8) X10*3/uL RBC 4.64 (4.60-5.80) X10*6/uL Hgb 14.0 (14.0-18.0) g/dl Hct 40.1 L (42.0-52.0) % MCV 86.4 (80.0-98.0) fL MCH 30.2 (27.0-33.0) pg MCHC 34.9 (31.0-36.0) g/dl RDW 13.3 (11.0-16.0) % Plt Count 221 (160-400) X10*3/uL MPV 9.8 (9.4-12.4) fL Immature Gran % (Auto) 0.2 (0.0-0.4) % Neut % (Auto) 67.3 (45-73) % Lymph % (Auto) 23.2 (20-40) % Lucas % (Auto) 6.1 (2-11) % Eos % (Auto) 2.7 (0-4) % Baso % (Auto) 0.5 (0-2) % Lymph # (Auto) 2.2 (1.2-4.9) X10*3/uL Lucas # (Auto) 0.6 (0.1-1.2) X10*3/uL Eos # (Auto) 0.3 (0.0-0.4) X10*3/uL Baso # (Auto) 0.1 (0.0-0.2) X10*3/uL Abs Immat Gran (auto) 0.02 (0.00-0.03) X10*3/uL Absolute Neuts (auto) 6.3 (2.0-8.3) x10*3/uL Absolute Nucleated RBC 0.000 (0.0-0.012) X10*3/uL Nucleated RBC % (auto) 0.0 (0.0-0.2) /100WBC Sodium 133 L (135-145) mmol/L Potassium 4.8 (3.3-5.1) mmol/L Chloride 100 (96-108) mmol/L Carbon Dioxide 23 (22-29) mmol/L Anion Gap 15 (12-20) BUN 18 H (9-16) mg/dL Creatinine 1.11 (0.5-1.4) mg/dL Estim Creat Clear Calc 100.7 Estimated GFR > 60 Random Glucose 300 H (60-115) mg/dL Calcium 9.5 (8.4-10.2) mg/dL Magnesium 2.2 (1.6-2.6) mg/dL Total Bilirubin 0.8 (0.0-1.0) mg/dL Direct Bilirubin 0.2 (0.0-0.5) mg/dL AST 20 (5-37) U/L ALT 24 (0-40) U/L Alkaline Phosphatase 87 (39-117) U/L Total Protein 7.9 (6.5-8.0) g/dL Albumin 4.3 (3.5-5.0) g/dL Lipase 38 (8-78) U/L Urine Color Yellow Urine Appearance Clear Urine pH 5.5 (5.0-9.0) Ur Specific Louis[place] >= 1.030 H (1.005-1.025) Urine Protein Negative (Neg-Trace) mg/dL Urine Glucose (UA) >=1000 H (Negative) mg/dL Urine Ketones Negative (Negative) mg/dL Urine Blood Negative (Negative) Urine Nitrite Negative (Negative) Ur Leukocyte Esterase Negative (Negative) Urine RBC 0-2 (0-2) /HPF Urine WBC 0-5 (0-5) /HPF Ur Squamous Epith Cells 0-2 (0-2) /HPF Urine Bacteria None Seen (None Seen) Hyaline Casts 0-2 (0-2) /LPF Discharge Plan Discharge Clinical Impression: Acute left flank pain, Acute hyponatremia Patient Disposition: Home, Self-Care Instructions: Flank Pain (ED) Additional Instructions: DISCHARGE DIAGNOSES: Flank pain left side unclear cause. HISTORY OF PRESENTATION: ?Flank pain 2 days without history of trauma. No blood in the urine no pain with urination. No other symptoms EMERGENCY DEPARTMENT COURSE,TESTS, TREATMENTS: While in the ED today you had an ultrasound in your left kidney which showed no signs of blockage or obstruction or other abnormality. You had an ultrasound of your bladder and abdominal aorta. Bladder was normal your abdominal aorta showed borderline measurements pre aneurysmal this is unlikely to be causing your acute pain but may need to be followed up with comprehensive imaging as an outpatient. You can take ibuprofen for pain. Your kidney function was normal. You had slightly low sodium level 133 this needs to be rechecked in 3-5 days. DISCHARGE MEDICATIONS: ?[We have made no changes to your regular medication regimen] FOLLOW-UP: ?Call your primary or general physician soon as possible to discuss your symptoms, your ED visit and to discuss follow up plans Call your PCP for follow up you need to be seen in 2-3 days for repeat lab work and evaluation of your flank pain as you may need outpatient workup INSTRUCTIONS ?& RETURN PRECAUTIONS: If any symptoms change first call your primary physician, if it is after-hours your primary doctors office should have a provider employee communications specialist you can speak with. If the symptoms are severe or very concerning to you then call 911 or return to the ED. Tylenol for pain. Return to the ED if severe worsening inability urinate focal areas of weakness or sensory issues or worsening flank or abdominal pain or passing out Scottie Roy MD Emergency Physician [facility] Prescriptions: No Action (DME) blood sugar diagnostic Strip See Rx Instructions .Route Qty: 50 6RF Rx Instructions: As directed Jardiance 10 mg tablet 10 mg PO DAILY Qty: 90 3RF clopidogrel 75 mg tablet 75 mg PO DAILY Qty: 90 1RF lisinopril 2.5 mg tablet 2.5 mg PO DAILY Qty: 90 1RF metformin 1,000 mg tablet 1,000 mg PO BID Qty: 180 1RF Ozempic 2 mg/dose (8 mg/3 mL) pen injector 2 mg subcut QWEEK Qty: 3 3RF (DME) FreeStyle Test Strip MISCELLANEOUS Qty: 300 1RF Rx Instructions: As directed insulin glargine [Basaglar KwikPen U-100 Insulin] 100 unit/mL (3 mL) insulin pen See Rx Instructions .ROUTE .COMPLEX Qty: 45 3RF Rx Instructions: Use 30 units am and 100 units bedtime; simvastatin 40 mg tablet 40 mg PO DAILY@1900 omeprazole 20 mg capsule,delayed release(DR/EC) 20 mg PO BID@0630,1630 cyclobenzaprine 5 mg tablet 5 mg PO TID PRN (Reason: muscle spasm) 7 Days Qty: 21 0RF Ozempic 0.25 mg or 0.5 mg (2 mg/3 mL) pen injector 2 mg subcut SA Interventions: ED Discharge Assessment Last Done: 10/27/24 16:33 Discharge Date/Time: 10/27/24 16:34 Print Language: Albanian
[2024-10-27 11:46] VITALS: BP 115/65; PULSE 90; RESP 16; TEMP 37; O2SAT 97; BMI 38.6
[2024-10-27 12:26] LABS: MANUAL DIFF FLAG NO
[2024-10-27 12:29] LABS: Hematocrit 40.1 % (42.0-52.0); Hemoglobin 14.0 g/dl (14.0-18.0); Imm Gran Abs Auto 0.02 X10*3/uL (0.00-0.03); Imm Gran Pct Auto 0.2 % (0.0-0.4); Lymphocytes Absolute Auto 2.2 X10*3/uL (1.2-4.9); Mean Corpuscular HGB Conc 34.9 g/dl (31.0-36.0); Mean Corpuscular Hemoglobin 30.2 pg (27.0-33.0); Mean Corpuscular Volume 86.4 fL (80.0-98.0); NRBC Abs Auto 0.000 X10*3/uL (0.0-0.012); NRBC Pct Auto 0.0 /100WBC (0.0-0.2); Platelet Count 221 X10*3/uL (160-400); Red Blood Count 4.64 X10*6/uL (4.60-5.80); White Blood Count 9.3 X10*3/uL (4.8-10.8)
[2024-10-27 12:36] LABS: Appearance Urine Clear; Glucose Urine UA >=1000 mg/dL (Negative); PH 5.5 (5.0-9.0); Specific Gravity - Urine >= 1.030 (1.005-1.025); UMIC TRIGGER UACC YES
[2024-10-27 12:45] LABS: Alanine Aminotransferase 24 U/L (0-40); Albumin Level 4.3 g/dL (3.5-5.0); Alkaline Phosphatase 87 U/L (39-117); Anion Gap 15 (12-20); Aspartate Amino Transferase 20 U/L (5-37); Blood Urea Nitrogen 18 mg/dL (9-16); Calcium 9.5 mg/dL (8.4-10.2); Carbon Dioxide 23 mmol/L (22-29); Chloride 100 mmol/L (96-108); Creatinine Clr Calc Pharmacy 100.7; Estimated Glomerular Filt Rate > 60; Lipase 38 U/L (8-78); Magnesium 2.2 mg/dL (1.6-2.6); Potassium 4.8 mmol/L (3.3-5.1); Sodium 133 mmol/L (135-145); Total Protein 7.9 g/dL (6.5-8.0)
[2024-10-27 14:38] VITALS: BP 126/72; PULSE 74; RESP 16; TEMP 36.5; O2SAT 100
--- OUTSIDE RECORDS SUMMARY | 2024-10-27 15:27 | XMS_ITS | Clinical Summary ---
Author Organization [address] [facility] Address [address] [place] [address] Phone Care Team Providers Care Roll Up Guider Operator Name Role Phone Zaheer Tucker MD Primary Care Provider [phone] Allergies Active Allergy Reactions Criticality Noted Date Comments Penicillins Unknown Low 11/11/2023 Childhood-unknown rxn Medications blood-glucose meter kit 1 Device by Does not apply route. Use daily to blood sugars daily 1 Active blood glucose control, normal (Glucose Control) solution Use to calibrate glucometer 1 Active lancets lancets 1 Strip daily. 1 Active lisinopriL (PRINIVIL,ZESTR IL) 2.5 mg tablet [...] 80 Units under the skin at bedtime. 3 Active insulin glargine,hum.re c.anlog (BASAGLAR KWIKPEN U-100 INSULIN SUBQ) Inject 30 Units under the skin 1 (one) time each day. Active semaglutide (OZEMPIC) 2 mg/dose (8 mg/3 mL) injection pen Inject 2 mg under the skin every 7 (seven) days. Active empagliflozin (Jardiance) 10 mg tablet Take 1 tablet (10 mg total) by mouth 1 (one) time each day. Active simvastatin (ZOCOR) 40 mg tablet Take 1 tablet (40 mg total) by mouth. Active pregabalin (LYRICA) 300 mg capsule Take 1 capsule (300 mg total) by mouth. 3 Active clopidogreL (PLAVIX) 75 mg tablet Take 1 tablet (75 mg total) by mouth 1 (one) time each day. Active aspirin 81 mg chewable tablet Chew 1 tablet (81 mg total) 1 (one) time each day. Active omeprazole OTC (PriLOSEC OTC) 20 mg EC tablet Take 1 tablet (20 mg total) by mouth 1 (one) time each day. Do not crush, chew, or split. Active Active Problems Problem Noted Date Diagnosed Date Cervical spondylosis without myelopathy 07/03/19 25 Assessment & Plan (07/02/2024 11:04 AM EDT): I reviewed the imaging study in detail with Mr. Kellogg using a spine model to demonstrate the change in alignment and the effect osteophytes have on the thecal sac and at the lower 2 levels, just effacing the cord. There is no radha signal change in the cord and based on the EMG, his symptoms are not from myelopathy or radiculopathy but, rather peripheral neuropathy likely from diabetes. Symptoms have been present for about a month after having been off of his diabetes medication while on antibiotics for the osteo of his left foot. His A1c is 13.8 where he says it was historically much lower. I am hoping that the worst of his symptoms will improve now that he is back on medication and encouraged him to be very mindful of his diet. He has had longstanding symptoms of neuropathy in his feet and a suspect he will now have some permanently in the hands. The clumsiness and incoordination though should hopefully improve. There was no evidence of carpal tunnel syndrome or ulnar neuropathy that could be treated surgically. In terms of his activity, I recommended avoiding heavy overhead lifting and to avoid prolonged extension of the head and neck to hopefully slow down prevent further growth of the osteophytes. Chronic osteomyelitis of lef t foot ([facility] V24, [facility] V28) 03/22/2024 Exostosis of left foot 03/22/2024 Hyperlipidemia 08/14/2010 Morbid obesity ([facility] V24, [facility] V28) 2010 Type 2 diabetes mellitus ([facility] V24, [facility] V 28) 08/14/2010 Sleep apnea 07/31/2010 Encounters Date Type Department Care Team Description 09/27/2024 8:15 AM EDT Office Visit Orthopedic Surgery - [place] [address] [place] [id number] Gato Gabriel DPM Controlled type 2 diabetes mellitus with diabetic polyneuropathy, without long-term current use of insulin ([facility] V24, [facility] V28) (Primary Dx); History of amputation of left foot through metatarsal bone ([facility] V24, [facility] V28); Charcot foot due to diabetes mellitus ([facility] V24, [facility] V28); Onychomycosis from Last 3 Months Immunizations Name Administration [...] Sleep apnea 07/31/2010 DX:Sleep apnea Morbid obesity ([facility] V24, [facility] V28) 011 DX:Morbid obesity ([facility]) Hyperlipidemia 08/14/2010 DX:Hyperlipidemi a Osteomyelitis of ankle or fo ot, left, acute ([facility] V24, [facility] V28) Bone spur of foot left Arm vein blood clot R BICEP Diabetes 1.5, managed as typ e 2 ([facility] V24, [facility] V28) Port-A-Cath in place ROY R U PPER CHEST Family History Relation Name Status Comments Father (Age 68) [place], diabet es, hyperlipidemia Mother Alive HTN, diabetes, [...] 88 04/02/2024 8:50 AM EST Temperature 36.7 C (98.1 F) 04/02/2024 8:50 AM EST Respiratory Rate 16 04/02/2024 8:41 AM EST Oxygen Saturation 98% 04/02/2024 8:50 AM EST Inhaled Oxygen Concentration - - Weight 133 kg (294 lb) 09/27/2024 8:33 AM EDT Height 182.9 cm (6' 0.01 ) 09/27/2024 8:33 AM ED T Body Mass Index 39.86 09/27/2024 8:33 AM EDT Plan of Treatment Upcoming Encounters Date Type Department Care Team (Late st Contact Info) Description 11/29/2024 9:00 AM EDT Office Visit Orthopedic Surgery - [place] [id number] [id number] Gato Gabriel DPM [address] [address] Health Maintenance Due Date Last Done Comments [...] 01/24/2021, Additional history exists Influenza Vaccine (#1) 2024 , 02/22/2022, 01/24/2021 DTaP,Tdap,and Td Vaccines (6 - Td or Tdap) 05/09/2032 05/09/2022, 11/25/2018, 10/23/2018, Additional history exists MMR Vaccines Aged Out 12/07/2018 No longer eligi ble based on patient's age to complete this topic Pneumococcal Vaccine: 50+ Years Completed 02/02/2023 HIB Vaccines Aged Out No [...] age to complete this topic Meningococcal B Vaccine Aged Out No l onger eligible based on patient's age to complete this topic RSV Immunization Patients Under 20 months Aged Out No longer eligible based on patient's age to complete this topic Varicella Vaccines Aged Out No longer eligible based on patient's age to complete this topic Procedures Procedure Name Priority Date/Time Associated Diagnosis Comments ANNUAL BMP BLOOD TEST Routine 11/29/2010 HEMOGLOBIN A1C Routine 11/29/2010 LIPID PANEL Routine 11/29/2010 from Last 3 Months or Most Recently Relevant to Health Maintenance Results * Annual BMP Blood Test (11/29/2010) Pathologist [facility] Annual BMP Blood Test Abstracted [facility] Provider HEALTH MAINTENANCE Final Result * (ABNORMAL) Hemoglobin A1c (11/29/2010) [facility] Hemoglobin A1C 8.2(A) 4.0 - 6.0 % Blood Venous blood specimen / Unknown [facility] Provider LAB BLOOD ORDERABLES Bibi l Result * (ABNORMAL) Lipid panel (11/29/2010) Pathologist [facility] LDL/HDL Ratio 4 0 - 4 Triglycerides 88 0 - 150 mg/dL Cholesterol 200 0 - 200 mg/dL HDL 55 >=40 mg/dL LDL Cholesterol 128(A) 0 - 100 mg/dL Blood Venous blood specimen / Unknown [facility] Provider LAB BLOOD ORDERABLES Bibi l Result from Last 3 Months or Most Recently Relevant to Health Maintenance Insurance [employer] MED[employer] MED[place] - [place] MEDICARE Advance Directives * Full Code - Default [...] currently active code status orders. Care Teams Roll Up Guider Operator Relationship Specialty Start Date End Date Zaheer Tucker MD [facility] [address] [place] [address] [address] [facility] [id number] PCP - General Internal Medicine 07/02/24
[2024-10-27 16:33] VITALS: BP 116/71; PULSE 90; RESP 18; TEMP 36.6; O2SAT 97
== END 2024-10-27 16:34 | disposition home or self-care (01) ==
PROVIDERS: Physician Assistant Medical; Emergency Provider Emergency Medicine; PCP Internal Medicine
DX: N23 Unspecified renal colic (principal); Z87.891 Personal history of nicotine dependence; Z79.899 Other long term (current) drug therapy
CPT/HCPCS: 36415; 80048; 80076; 81001; 83690; 83735; 85025; 99284

== ENCOUNTER 2024-12-27 08:47 | Outpatient (AMB) | payer MEDICARE, MEDICAID, SELFPAY ==
--- NOTE | 2024-12-27 08:49 | MHC.PC.OV ---
Vital Signs 12/27/24 08:59 Height 6 ft Weight 293 lb BMI 39.7 BP 108/52 L Blood Pressure Location Lt brachial Position Sitting Respiration 18 Pulse 91 Pulse Source Pulse Oximeter Temp 97.7 F Temp Source Temporal Artery Scan Pulse Oximetry (%) 97 Oxygen Delivery Method Room Air Intake Visit Reasons: 3 month f/u Director Of Managed Services Required: No Accompanied by: Self / Same As Patient Allergies penicillin G Allergy (Unknown, Verified 12/27/24 08:49) Unknown Tobacco use date assessed: 06/30/24 Dental Screening Dental Screen Date: 06/30/24 HPI HPI Comments History of Present Illness Details The patient is a 59-year-old male presenting with management concerns for diabetes mellitus type 2. The patient has a documented history of severe hyperglycemia, with previous A1c levels exceeding 14%. The patient reports a recent lapse in the use of Ozempic, which previously managed glycemic levels albeit with adverse effects of severe nausea and vomiting upon dose escalation to 2.0 mg. The patient details that while taking lower doses (0.25 mg and 0.5 mg), adverse symptoms were absent which suggests dose sensitivity. He has a past medical history significant for a diabetic foot ulcer requiring multiple surgical interventions. The ulcer, initially exacerbated by a protruding metatarsal bone, was resolved post-bonectomy performed by his television specialist in March, with subsequent healing and closure of the wound. Medical History: - Diabetes mellitus type 2 - Severe hyperglycemia - Diabetic foot ulcer - Peripheral neuropathy Surgical History: - Multiple foot surgeries for diabetic foot ulcer management Medications: - Glipizide for glycemic control - Insulin: 100 units at night (Lantus), 30 units in the morning - Jardiance for glycemic control - Lisinopril for renal protection - Metformin for glycemic control - Simvastatin for hyperlipidemia management Social: - Reports success with previous weight loss interventions [facility] Medical History (Updated 12/27/24 @ 09:40 by Grant Son MD) PAD (peripheral artery disease) Non-healing wound Sepsis 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 Fever Nocturnal hypoxemia Diabetes Restrictive lung disease RIGOBERTO (obstructive sleep apnea) Morbid obesity Surgical History Hx of amputation Hx of right inguinal hernia repair Hx of eye surgery Family History Father Diabetes Heart attack Mother Hypertension Pre-diabetes Social History Household Members: Family Housing: Apartment Do you presently have visiting nurse or other home services: No Unable to assess alcohol history related to: Unknown Alcohol intake: current Alcohol intake frequency: holidays/special occasions only Alcohol type: hard liquor Patient Tobacco Use Status: Former Tobacco user e-Cigarette/Vaping Use: Never Used Second Hand Smoke Exposure: No service: No Current occupational status: retired Cognitive needs: No Hearing needs: No Vision needs: Yes (reading glasses) Questionnaire Thrive Questionnaire Date Thrive assessed: 06/30/24 AUDIT C Alcohol Use Questionnaire (AUDIT-C) 1. How often do you have a drink containing alcohol?: Never 3. How often do you have six or more drinks on one occasion?: Never Total Score: 0 DANY-7 AMB Questionnaire DANY-7 Date DANY - 7 assessed: 06/30/24 Source: Developed by Drs. Oc Leslie, Albertina Sutherland, Gelacio Harrell and colleagues, with an educational andres from [employer]. Review of Systems Const Details: - Constitutional: Denies any current general malaise or fatigue. - Endocrine: Reports wide blood glucose variability; prior A1c was over 14%. - Gastrointestinal: Reports vomiting with higher dosages of Ozempic. - Musculoskeletal: Reports tingling in both hands. - Neurological: Reports peripheral neuropathy symptoms in hands and feet. All systems reviewed & are unremarkable except as noted in HPI and below Physical exam (Primary Care) Vital Signs: Last Vital Signs Temp 97.7 F 12/27/24 08:59 Pulse 91 12/27/24 08:59 Resp 18 12/27/24 08:59 BP 108/52 L 12/27/24 08:59 Pulse Ox 97 12/27/24 08:59 Oxygen Delivery Method Room Air 12/27/24 08:59 BMI result Body Mass Index 39.7 Tobacco/Smoking Status: Tobacco use Status Tobacco use date assessed 06/30/24 12/27/24 08:51 Patient Tobacco Use Status Former Tobacco user 12/27/24 08:51 e-Cigarette/Vaping Use Never Used 12/27/24 08:53 Thrive Assessment: Date of Thrive Assessment Date Thrive assessed 03/12/25 09/08/25 08:51 Const Other: General: Alert and oriented, Well nourished, No acute distress. Eye: Pupils are equal, round and reactive to light, Intact accommodation, Extraocular movements are intact, Normal conjunctiva, Vision unchanged. HENT: Normocephalic, Atraumatic, Tympanic membranes are clear, Normal hearing, Oral mucosa is moist, No pharyngeal erythema, Ear canals patent. Respiratory: Lungs CTA bilaterally, No wheeze, Respirations are non-labored. Cardiovascular: Regular rate, Regular rhythm, S1 auscultated, S2 auscultated, No murmur, Good pulses equal in all extremities, Normal peripheral perfusion, No edema. Gastrointestinal: Soft, Non-tender, Non-distended, Normal bowel sounds, No organomegaly. Musculoskeletal: Normal range of motion, Normal strength, No tenderness, No swelling, No deformity, Normal gait. Integumentary: Warm, Dry, [place], Intact. Neurologic: Alert, Oriented, Normal sensory, Normal motor function, No focal defects, Cranial Nerves II-XII are grossly intact, Normal deep tendon reflexes. Psychiatric: Cooperative, Appropriate mood & affect, Normal judgment. Coding Level of Care Code Est Pt Level 4 (29631) Complex EM visit Add On G2211 Diagnoses Type 2 diabetes mellitus with hyperglycemia, with long-term current use of insulin E11.65; Z79.4 Diabetes mellitus type: type 2 Diabetes mellitus [facility] insulin use: with [facility] use Diabetes mellitus complication status: with hyperglycemia Diabetic foot infection E11.628; L08.9 Peripheral polyneuropathy G62.9 Peripheral neuropathy type: polyneuropathy, unspecified Assessment & Plan Assessment & Plan (1) Diabetes: Comment: - Recommend referral to endocrinology due to high A1c levels. (Previously 14) - Plan to restart Ozempic at 0.25 mg, titrate slowly upwards as tolerated. - Monitor blood glucose levels at home, consider continuous glucose monitoring. - If A1c continues to remain high, will refer to endo Code(s): E11.9 - Type 2 diabetes mellitus without complications Category: Medical Qualifiers: Diabetes mellitus type: type 2 Diabetes mellitus buttermaker helper insulin use: with [facility] use Diabetes mellitus complication status: with hyperglycemia Qualified Code(s): E11.65 - Type 2 diabetes mellitus with hyperglycemia; Z79.4 - senior living (current) use of insulin (2) Diabetic foot infection: Comment: - Continue regular follow-up with podiatry every 6 to 9 weeks. - Ensure patient understands importance of foot care. Code(s): E11.628 - Type 2 diabetes mellitus with other skin complications; L08.9 - Local infection of the skin and subcutaneous tissue, unspecified Category: Medical (3) Peripheral neuropathy: Code(s): G62.9 - Polyneuropathy, unspecified Qualifiers: Peripheral neuropathy type: polyneuropathy, unspecified Qualified Code(s): G62.9 - Polyneuropathy, unspecified Plan: - Initially trial use of a topical cream such as Mama Bear cream. - If ineffective, consider transition to duloxetine after reassessment. Plan During the visit, I discussed management of diabetes and related complications with the patient. We reviewed the adverse effects experienced with Ozempic and formulated a plan for gradual dose escalation starting at 0.25 mg. The risks and benefits of using Ozempic were presented, including its impact on glycemic control and potential gastrointestinal side effects. I recommended a comprehensive diabetic management plan involving endocrinology consultation due to the high A1c level. We discussed the ongoing care for diabetic foot ulcers, stressing regular podiatric surveillance. With regard to peripheral neuropathy, I advised trying a topical application as a first-line approach before re-evaluating pharmacologic options like duloxetine. Finally, I encouraged vigilance in routine screenings, highlighted the importance of regular foot and eye care, and proposed a colonoscopy as a preventative measure. Orders: Orders Hemoglobin A1c Today E11.9 - Type 2 diabetes mellitus without complications Referrals Open Access Screening Colonoscopy Referral Z12.11 - Encounter for screening for malignant neoplasm of colon Medications: New simvastatin 40 mg PO BEDTIME 90 tabs 0RF semaglutide (Ozempic) for 4 weeks 0.25 mg (0.368 mL) subcut QWEEK 3 mL 0RF Patient Instructions: - Titrate Ozempic from 0.25 mg as directed. - Schedule an appointment with an sharepoint architect. - Continue using topical treatments for hand neuropathy. - Monitor blood sugars regularly at home. - Schedule an eye examination. - Maintain regular television specialist visits. - Plan for a colonoscopy within the year. - Contact our office if symptoms worsen or new symptoms develop.
[2024-12-27 08:59] VITALS: BP 108/52; PULSE 91; RESP 18; TEMP 36.5; O2SAT 97; BMI 39.7
--- OUTSIDE RECORDS SUMMARY | 2024-12-27 09:49 | XMS_ITS | Clinical Summary ---
Author Organization 175 [facility] Address [address] [place] [address] Phone Care Team Providers Care Developmental Training Counselor Name Role Phone Zaheer Tucker MD Primary Care Provider [phone]- [phone] Allergies Active Allergy Reactions Criticality Noted Date [...] osteophytes. Chronic osteomyelitis of lef t foot ([facility] V24, [facility] V28) 03/22/2024 Exostosis of left foot 03/22/2024 Hyperlipidemia 08/14/2010 Morbid obesity ([facility] V24, [facility] V28) 2010 Type 2 diabetes mellitus ([facility] V24, [facility] V 28) 08/14/2010 Sleep apnea 07/31/2010 Encounters Date Type Department Care Team Description 11/29/2024 9:00 AM EDT Office Visit Orthopedic Surgery [facility] [address] [phone] Gato Gabriel DPM Controlled type 2 diabetes mellitus with diabetic polyneuropathy, without long-term current use of insulin ([facility] V24, [facility] V28) (Primary Dx); History of amputation of left foot through metatarsal bone ([facility] V24, [facility] V28); Charcot foot due to diabetes mellitus ([facility] V24, [facility] V28); Onychomycosis 09/27/2024 8:15 AM EDT Office Visit Orthopedic Surgery [facility] [address] [phone] Gato Gabriel DPM Controlled type 2 diabetes mellitus with diabetic polyneuropathy, without long-term current use of insulin ([facility] V24, [facility] V28) (Primary Dx); History of amputation of left foot through metatarsal bone ([facility] V24, [facility] V28); Charcot foot due to diabetes mellitus ([facility] V24, [facility] V28); Onychomycosis from Last 3 Months Immunizations [...] Sleep apnea 07/31/2010 DX:Sleep apnea Morbid obesity ([facility] V24, [facility] V28) 011 DX:Morbid obesity ([facility]) Hyperlipidemia 08/14/2010 DX:Hyperlipidemi a Osteomyelitis of ankle or fo ot, left, acute ([facility] V24, [facility] V28) Bone spur of foot left Arm vein blood clot R BICEP Diabetes 1.5, managed as typ e 2 ([facility] V24, [facility] V28) Port-A-Cath in place ROY R U PPER CHEST Family History Relation Name Status Comments Father (Age 68) [place], diabet es, hyperlipidemia Mother Alive HTN, diabetes, [...] Care Team (Late st Contact Info) Description 01/31/2025 9:15 AM EDT Office Visit Orthopedic Surgery - [place] 250 175 [facility] [address] [place] [phone] Gato Gabriel DPM [address] [address] Health Maintenance Due Date Last Done Comments Diabetes: Annual Foot Exam 1976 Diabetes: Annual Retina Eye Exam 1976 Hepatitis B Vaccines (1 of 3 - 19+ 3-dose series) 1985 Diabetes: Annual GFR (Glomerular Filtration Rate) 11/30/2011 11/29/2010 Zoster Vaccines (2 of 2) 07/16/2021 05/21/2021 Cholesterol Screening (Lipid Panel) 05/15/2023 11/29/2010 Colorectal Cancer Screening: Colonoscopy 05/15/2023 HIV Screening 05/15/2023 Hepatitis C Screening 05/15/2023 Medicare Annual Wellness Visit 05/15/2023 Social Influencers of Health Screening 05/15/2023 Diabetes: Annual Urine Albumin-Creatinine Ratio (uACR) 05/23/2023 Diabetes: Blood Sugar Control Test (HGBA1C) 05/23/2023 11/29/2010 Depression Screening 04/21/2024 COVID-19 Vaccine (6 - 2024- season) 2024 02/02/2023, 02/22/2022, 01/24/2021, Additional history exists Influenza [...] Results * Annual BMP Blood Test (11/29/2010) Annual BMP Blood Test Abstracted [facility] Provider HEALTH MAINTENANCE Final Result * (ABNORMAL) Hemoglobin A1c (11/29/2010) Pathologist [facility] Hemoglobin A1C 8.2(A) 4.0 - 6.0 % Blood Venous blood specimen / Unknown [facility] Provider LAB BLOOD ORDERABLES Bibi l Result * (ABNORMAL) Lipid panel (11/29/2010) LDL/HDL Ratio 4 0 - 4 Triglycerides 88 0 - 150 mg/dL Cholesterol 200 0 - 200 mg/dL HDL 55 >=40 mg/dL LDL Cholesterol 128(A) 0 - 100 mg/dL Blood Venous blood specimen / Unknown [facility] Provider LAB BLOOD ORDERABLES Bibi l Result from Last 3 Months or Most Recently Relevant to Health Maintenance Insurance [employer] MEDICARE ADVANTAGE [place]ICAID - [place] MEDICARE Advance [...] currently active code status orders. Care Teams Developmental Training Counselor Relationship Specialty Start Date End Date Zaheer Tucker MD [facility] [address] [place] [address] [address] [place] [address] PCP - General Internal Medicine 07/02/24
== END 2024-12-27 09:24 | disposition home or self-care (01) ==
LOC: HO.HMCHD 08:48
PROVIDERS: PCP Student in an Organized Health Care Education/Training Program; Visit Provider Student in an Organized Health Care Education/Training Program
DX: E11.65 Type 2 diabetes mellitus with hyperglycemia (principal); Z79.4 Long term (current) use of insulin; E11.628 Type 2 diabetes mellitus with other skin complications; L08.9 Local infection of the skin and subcutaneous tissue, unspecified; G62.9 Polyneuropathy, unspecified

== ENCOUNTER → 2024-12-27 08:47 | Outpatient (BNVA) | payer MEDICARE, MEDICAID, SELFPAY | PROVIDERS: PCP Internal Medicine; Visit Provider Student in an Organized Health Care Education/Training Program | DX: Z00.00 Encounter for general adult medical examination without abnormal findings (principal) ==

== ENCOUNTER 2024-12-27 09:36 | Outpatient (REF) | payer MEDICARE, MEDICAID, SELFPAY ==
[2024-12-27 10:33] LABS: Hemoglobin A1C 446.6090 umol/L; Total Hemoglobin (HGBA1C) 3390.8249 umol/L
== END 2024-12-27 09:37 | disposition home or self-care (01) ==
LOC: HO.10HDL 09:36
PROVIDERS: Visit Provider Student in an Organized Health Care Education/Training Program
DX: E11.65 Type 2 diabetes mellitus with hyperglycemia (principal); E11.628 Type 2 diabetes mellitus with other skin complications; G62.9 Polyneuropathy, unspecified; L08.9 Local infection of the skin and subcutaneous tissue, unspecified; Z79.4 Long term (current) use of insulin
CPT/HCPCS: 36415; 83036; 99212

== ENCOUNTER 2024-12-28 12:31 | Outpatient (AMB) | payer MEDICARE, MEDICAID, SELFPAY ==
[2024-12-28 12:45] VITALS: BP 118/72; PULSE 86; O2SAT 93; BMI 40.4
--- NOTE | 2024-12-28 12:45 | MHC.OFFVIS ---
Vital Signs 12/28/24 12:45 Height 6 ft Weight 297 lb 9.985 oz BMI 40.4 BP 118/72 Blood Pressure Location Lt brachial Position Sitting Pulse 86 Pulse Source Pulse Oximeter Pulse Oximetry (%) 93 Oxygen Delivery Method Room Air Intake Visit Reasons: DMT2 Uncontrolled A1c >14.0% Intake Note: New patient internally referred by PCP for Diabetes Mellitus Management. Last Diabetic Eye exam: Patient has appt in 2 weeks Last Podiatry Visit: Last exam was 11/29/24 Random Glucose: 238 mg/dl Hgb A1C: >14.0% 12/27/2024 Research Soil Scientist Required: No Accompanied by: Self / Same As Patient Allergies penicillin G Allergy (Unknown, Verified 12/28/24 12:51) Unknown Medication List - Last Reconciled 12/28/24 by Oc Peña MD aspirin 81 mg PO DAILY blood sugar diagnostic As directed blood sugar diagnostic (FreeStyle Test strips) As directed clopidogrel 75 mg PO DAILY glipizide 10 mg PO BID insulin glargine (Basaglar KwikPen U-100 Insulin) Use 30 units am and 100 units bedtime; Jardiance (empagliflozin) 10 mg PO DAILY NS lisinopril 2.5 mg PO DAILY metformin 1,000 mg PO BID omeprazole 20 mg PO BID@0630,1630 semaglutide (Ozempic) 0.25 mg (0.368 mL) subcut QWEEK simvastatin 40 mg PO BEDTIME HPI Comments Details: 59 YO M who is seen in consultation for T2DM at the request of PCP. Initially diagnosed with T2DM in 10 yrs ago . Never seen endo before Was initially started on treatment with metformin . Current regimen Glipizide 10 mg BID, metformin 1000 mg BID, Ozempic 0.25 mg Qwkly just restarted in 08/2024 . Jardiance 10 mg QD Basaglar 30 units in AM and 100 units HS Checks sugars 2 times per day. Unfortunately, patient did not bring log book or glucometer or sensor to appointment Reports low sugars No . Family history of T2DM in father , mother . Has eyes checked yearly, last eye exam has appt next wk , denies retinopathy. Has neuropathy, last foot exam 11/29/24 , sees podiatry. Denies nephropathy, on NADER/ARB. . Has HLD, on statin. Denies CAD. Had diabetes education. [facility] Medical History (Updated 12/27/24 @ 09:40 by Grant Son MD) PAD (peripheral artery disease) Non-healing wound Sepsis 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 Fever Nocturnal hypoxemia Diabetes Restrictive lung disease RIGOBERTO (obstructive sleep apnea) Morbid obesity Surgical History Hx of amputation Hx of right inguinal hernia repair Hx of eye surgery Family History Father Diabetes Heart attack Mother Hypertension Pre-diabetes Social History Household Members: Family Housing: Apartment Do you presently have visiting nurse or other home services: No Unable to assess alcohol history related to: Unknown Alcohol intake: current Alcohol intake frequency: holidays/special occasions only Alcohol type: hard liquor Patient Tobacco Use Status: Former Tobacco user e-Cigarette/Vaping Use: Never Used Second Hand Smoke Exposure: No service: No Current occupational status: retired Cognitive needs: No Hearing needs: No Vision needs: Yes (reading glasses) Physical Exam Vital Signs: Last Vital Signs Pulse 86 12/28/24 12:45 BP 118/72 12/28/24 12:45 Pulse Ox 93 12/28/24 12:45 Oxygen Delivery Method Room Air 12/28/24 12:45 BMI result Body Mass Index 40.4 Absence of Cushingoid features. Absence of acromegalic features. Neck exam reveals nl size thyroid about 15 gms. No thyroid nodules palpable. No carotid bruits present. Lungs CTA. Heart S1 S2, Reg R/R. No M/R/ G. Skin exam reveals absence of vitiligo or acanthosis nigricans. Abdominal exam reveals Soft NT/ND with NA BS. No organomegaly present. Neck Other: . Extrem Other: Visual exam of foot performed. L foot 5th digit amputationNo ulcerations or open lesions. No onchomycosis, no callouses.Pulses 1 + distally Sensation intactis decreased monofilament exam. Vibratory sensation sensed is decreased with 128 Hz tuning fork Results Reviewed Results Reviewed: Laboratory Last Values Glucose (Clinic) 238 mg/dL (60-115) H 12/28/24 12:53 Assessment & Plan Assessment & Plan (1) Uncontrolled type 2 diabetes mellitus: Code(s): E11.65 - Type 2 diabetes mellitus with hyperglycemia Category: Medical Plan: This is a 59-year-old white male with a history of type 2 diabetes being treated with Ozempic, Jardiance, metformin and basal insulin with poor glycemic control and known microvascular complications namely neuropathy and microalbuminuria Plan is to have the patient check his point of cares pre and post meals. We will talk to the patient about initiating a sensor namely Kevin 3+. Can not adjust the insulin regimen today because of lack of data. We will make referral to certified adaptive physical educator and track sweeper. Had extensive conversation with patient regarding poor glycemic control and development and progression of complications. Once we have more data, would stop the glipizide and patient will most likely the prandial insulin and titration of the G LP 1 Orders: Referrals Diabetes Education Referral E11.65 - Type 2 diabetes mellitus with hyperglycemia Nutrition/Dietitian Referral E11.65 - Type 2 diabetes mellitus with hyperglycemia Medications: New glucagon 3 mg/actuation (Baqsimi) 3 mg intranasal ONCE 2 ea 4RF Coding Level of Care Code New Pt Level 5 (01793) Diagnoses Uncontrolled type 2 diabetes mellitus E11.65 Time Spent (min) 60
[2024-12-28 12:57] LABS: Glucose, Whole Blood 238 mg/dL (60-115)
--- OUTSIDE RECORDS SUMMARY | 2024-12-28 14:52 | XMS_ITS | Clinical Summary ---
Author Organization 175 [facility] Address [address] [place] [address] Phone Care Team Providers Care Mixing Plant Dumper Name Role Phone Zaheer Tucker MD Primary Care Provider [phone]- [phone] Allergies Active Allergy Reactions Criticality Noted Date [...] osteophytes. Chronic osteomyelitis of lef t foot ([facility] V24, [facility] V28) 03/22/2024 Exostosis of left foot 03/22/2024 Hyperlipidemia 08/14/2010 Morbid obesity ([facility] V24, [facility] V28) 2010 Type 2 diabetes mellitus ([facility] V24, [facility] V 28) 08/14/2010 Sleep apnea 07/31/2010 Encounters Date Type Department Care Team Description 11/29/2024 9:00 AM EDT Office Visit Orthopedic Surgery [facility] [address] [phone] Gato Gabriel DPM Controlled type 2 diabetes mellitus with diabetic polyneuropathy, without long-term current use of insulin ([facility] V24, [facility] V28) (Primary Dx); History of amputation of left foot through metatarsal bone ([facility] V24, [facility] V28); Charcot foot due to diabetes mellitus ([facility] V24, [facility] V28); Onychomycosis 09/27/2024 8:15 AM EDT Office Visit Orthopedic Surgery [facility] [address] [phone] Gato Gabriel DPM Controlled type 2 diabetes mellitus with diabetic polyneuropathy, without long-term current use of insulin ([facility] V24, [facility] V28) (Primary Dx); History of amputation of left foot through metatarsal bone ([facility] V24, [facility] V28); Charcot foot due to diabetes mellitus ([facility] V24, [facility] V28); Onychomycosis from Last 3 Months Immunizations [...] Sleep apnea 07/31/2010 DX:Sleep apnea Morbid obesity ([facility] V24, [facility] V28) 011 DX:Morbid obesity ([facility]) Hyperlipidemia 08/14/2010 DX:Hyperlipidemi a Osteomyelitis of ankle or fo ot, left, acute ([facility] V24, [facility] V28) Bone spur of foot left Arm vein blood clot R BICEP Diabetes 1.5, managed as typ e 2 ([facility] V24, [facility] V28) Port-A-Cath in place ROY R U PPER CHEST Family History Relation Name Status Comments Father (Age 68) [place], diabet es, hyperlipidemia Mother Alive HTN, diabetes, [...] AM EDT Office Visit Orthopedic Surgery - [place] 250 175 [facility] [address] [place] [phone] Gato Gabriel DPM [address] [address] Health Maintenance Due Date Last Done Comments [...] Test (11/29/2010) Annual BMP Blood Test Abstracted [facility] Provider HEALTH MAINTENANCE Final Result * (ABNORMAL) Hemoglobin A1c (11/29/2010) Pathologist [facility] Hemoglobin A1C 8.2(A) 4.0 - 6.0 % Blood Venous blood specimen / Unknown [facility] Provider LAB BLOOD ORDERABLES Bibi l Result * (ABNORMAL) Lipid panel (11/29/2010) LDL/HDL Ratio 4 0 - 4 Triglycerides 88 0 - 150 mg/dL Cholesterol 200 0 - 200 mg/dL HDL 55 >=40 mg/dL LDL Cholesterol 128(A) 0 - 100 mg/dL Blood Venous blood specimen / Unknown [facility] Provider LAB BLOOD ORDERABLES Bibi [...] currently active code status orders. Care Teams Mixing Plant Dumper Relationship Specialty Start Date End Date Zaheer Tucker MD [facility] [address] [place] [address] [address] [place] [address] PCP - General Internal Medicine 07/02/24
== END 2024-12-28 13:50 | disposition home or self-care (01) ==
LOC: HO.ENCR 12:31
PROVIDERS: PCP Student in an Organized Health Care Education/Training Program; Visit Provider Internal Medicine Endocrinology, Diabetes & Metabolism
DX: E11.65 Type 2 diabetes mellitus with hyperglycemia (principal); Z79.4 Long term (current) use of insulin
CPT/HCPCS: 99205

== ENCOUNTER → 2024-12-28 12:31 | Outpatient (BNVA) | payer MEDICARE, MEDICAID, SELFPAY | PROVIDERS: PCP Student in an Organized Health Care Education/Training Program; Visit Provider Internal Medicine Endocrinology, Diabetes & Metabolism | DX: E11.65 Type 2 diabetes mellitus with hyperglycemia (principal); Z68.41 Body mass index [BMI] 40.0-44.9, adult; Z79.4 Long term (current) use of insulin | CPT/HCPCS: 82947; 99202 ==

== ENCOUNTER 2025-01-26 11:56 | Outpatient (AMB) | payer MEDICARE, MEDICAID, SELFPAY ==
--- NOTE | 2025-01-26 13:10 | MHC.AMDMED ---
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 Accompanied by: Self / Same As Patient Allergies penicillin G Allergy (Unknown, Verified 12/28/24 12:51) Unknown HPI Comprehensive Diabetes Asmnt Most Recent Diabetes Results: Hemoglobin A1c 12.3 % 12/01/19 Microalb/Creat Ratio, (<30) 168.9 ug/mg cr H 05/18/24 Cholesterol, (<200) 159 mg/dL 06/26/24 HDL Cholesterol, (>40) 30 mg/dL L 06/26/24 Triglycerides, (<150) 162 mg/dL H 06/26/24 Creatinine, (0.5-1.4) 1.11 mg/dL 10/27/24 BUN, (9-16) 18 mg/dL H 10/27/24 Sodium, (135-145) 133 mmol/L L 10/27/24 Potassium, (3.3-5.1) 4.8 mmol/L 10/27/24 Chloride, (96-108) 100 mmol/L 10/27/24 Carbon Dioxide, (22-29) 23 mmol/L 10/27/24 Calcium, (8.4-10.2) 9.5 mg/dL 10/27/24 AST, (5-37) 20 U/L 10/27/24 ALT, (0-40) 24 U/L 10/27/24 Total Protein, (6.5-8.0) 7.9 g/dL 10/27/24 Albumin, (3.5-5.0) 4.3 g/dL 10/27/24 [facility] Medical History (Updated 12/27/24 @ 09:40 by Grant Son MD) PAD (peripheral artery disease) Non-healing wound Sepsis 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 Fever Nocturnal hypoxemia Diabetes Restrictive lung disease RIGOBERTO (obstructive sleep apnea) Morbid obesity Surgical History Hx of amputation Hx of right inguinal hernia repair Hx of eye surgery Family History Father Diabetes Heart attack Mother Hypertension Pre-diabetes Social History Household Members: Family Housing: Apartment Do you presently have visiting nurse or other home services: No Unable to assess alcohol history related to: Unknown Alcohol intake: current Alcohol intake frequency: holidays/special occasions only Alcohol type: hard liquor Patient Tobacco Use Status: Former Tobacco user e-Cigarette/Vaping Use: Never Used Second Hand Smoke Exposure: No service: No Current occupational status: retired Cognitive needs: No Hearing needs: No Vision needs: Yes (reading glasses) Assessment & Plan Assessment & Plan (1) Uncontrolled type 2 diabetes mellitus: Code(s): E11.65 - Type 2 diabetes mellitus with hyperglycemia Plan: Learning objectives: The patient was provided with verbal and written education on the following topics as outlined below. The patient met all learning objectives and was able to verbalize understanding and provide teach back of education topics discussed . The patient was provided with the opportunity to ask questions and all questions were answered. Patient Assessment Assess patient education level/literacy/barriers, patient reports being diagnosed approximately 10 years ago with type 2 diabetes. A1c on 12/27/2024 greater than 14% Since visit with Dr. Peña patient has started Kevin 3+ sensor He is currently taking glargine 60 units daily Jardiance 10 units daily Metformin 1000 mg b.i.d. Ozempic 0.25 mg weekly Glucose let levels have improved see CGM report below Patient reports he is being treated for reoccurring infection in his right foot, and his diabetes medications have been stopped. Discussed with patient the importance of controlling glucose levels while treating infection. Recommended to patient if medications are discontinued, and he is experiencing hyperglycemia to contact diabetes education nurse or Dr. Peña for alternative medication plan Patient questions/concerns What is Diabetes? Pathophysiology How the body produces and uses insulin Identify type of DM Risk factors Signs of Diabetes Brief overview of Diabetes Management Monitoring blood sugar Following a meal plan Regular exercise Maintaining a healthy weight Taking medication as needed Members of the care team (PCP, RN, MA, RD, CDE, survey director) Blood glucose monitoring When/how often to test Target blood sugar ranges Introduction to Nutrition Importance of healthy diet in managing DM Diet is personalized to individual preference Review patient?s regular diet/food preferences Who prepares meals/does food shopping/ Dining out?/ Barriers? How diet effects glucose Eating 3 balanced meals a day with small, healthy snacks between meals Review food groups Carbohydrates: What is a carbohydrate/Which food/food groups are considered carbohydrates Effect of carbohydrates on blood glucose Portion sizes Reading food labels Basic carb counting (if applicable per nursing assessment) Plate method Meal planning Recommendations: Follow plate method, consistent carbs and read nutritional labels. Educational Materials: The patient was provided with the following written educational materials: Planning Healthy Meals Handout Patient Response to instructions: Comprehension of Instructions: Fair Readiness to make changes: Contemplation How confident they feel about making changes: Positive Portions of this note were created using voice recognition software, please excuse any words or phrases that may have been misinterpreted. Patient Instructions: Include regular daily activity. ADA recommends 30 minutes of exercise 5 days a week. Weight loss talk to PCP or Track Laying Machine Operator before starting new plan. Test blood sugar as directed; Fasting and 2hpp largest meal. Watch trends in results. Utilize results and to assess how food, physical activity and medications affect blood sugar results. Bring glucometer or CGM to next visit. Be knowledgeable about diabetes medication, its action, side effects, efficacy, toxicity, prescribed dosage, appropriate timing and frequency of administration, effect of missed and delayed doses and instructions for storage, travel and safety. Problem solving techniques to monitor hypo/hyperglycemia episodes and treatments. Reduce risk reduction behaviors, smoking cessation, regular eye, foot and dental examinations. Coding Level of Care Code Est Pt Level 1 (27140) Diagnoses Uncontrolled type 2 diabetes mellitus E11.65
== END 2025-01-26 13:12 | disposition home or self-care (01) ==
LOC: HO.ENCR 11:57
PROVIDERS: PCP Student in an Organized Health Care Education/Training Program; Visit Provider Registered Nurse Diabetes Educator
DX: E11.65 Type 2 diabetes mellitus with hyperglycemia (principal)

== ENCOUNTER → 2025-01-26 11:56 | Outpatient (BNVA) | payer MEDICARE, MEDICAID, SELFPAY | PROVIDERS: PCP Student in an Organized Health Care Education/Training Program; Visit Provider Registered Nurse Diabetes Educator | DX: E11.65 Type 2 diabetes mellitus with hyperglycemia (principal) | CPT/HCPCS: 99211 ==

== ENCOUNTER 2025-01-27 15:11 | Outpatient (AMB) | payer MEDICARE, MEDICAID, SELFPAY ==
--- NOTE | 2025-01-27 15:13 | A.OFFVIS_ITS ---
Vital Signs 01/27/25 15:15 Height 6 ft Weight 305 lb 1.916 oz BMI 41.4 BP 124/74 Blood Pressure Location Lt brachial Position Sitting Pulse 91 Pulse Source Pulse Oximeter Pulse Oximetry (%) 99 Oxygen Delivery Method Room Air Intake Visit Reasons: T2DM Intake Note: New patient internally referred by PCP for Diabetes Mellitus Management.? 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 Required: No Allergies penicillin G Allergy (Unknown, Verified 01/27/25 15:17) Unknown Medication List - Last Reconciled 01/27/25 by Oc Peña MD aspirin 81 mg PO DAILY blood sugar diagnostic As directed blood sugar diagnostic (FreeStyle Test strips) As directed clopidogrel 75 mg PO DAILY glipizide 5 mg (1/2 x 10 mg) PO BID glucagon 3 mg/actuation (Baqsimi) 3 mg intranasal ONCE insulin glargine (Basaglar KwikPen U-100 Insulin) 60 units at bedtime Jardiance (empagliflozin) 10 mg PO DAILY NS lisinopril 2.5 mg PO DAILY metformin 1,000 mg PO BID omeprazole 20 mg PO BID@0630,1630 semaglutide (Ozempic) 0.25 mg (0.368 mL) subcut QWEEK simvastatin 40 mg PO BEDTIME HPI Comments Details: 59 YO M who is seen in consultation for T2DM at the request of PCP. Initially diagnosed with T2DM in 10 yrs ago . Never seen endo before Was initially started on treatment with metformin . Current regimen Glipizide 5 mg BID, metformin 1000 mg BID, Ozempic 0.25 mg Qwkly just restarted in 08/2024 . Jardiance 10 mg QD Basaglar 60 units in HS Very download shows the sensors active 95% of the time. Average glucose is 143 with G mi of 6.7% and variability of 26.2%. 85% of the blood sugars were in target with 15% hyperglycemia and no hypoglycemia Reports low sugars No . Family history of T2DM in father , mother . Has eyes checked yearly, last eye exam 01/05/25 , denies retinopathy. Has neuropathy, last foot exam 11/29/24 , sees podiatry. Denies nephropathy, on NADER/ARB. . Has HLD, on statin. Denies CAD. Had diabetes education. 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 Fever Nocturnal hypoxemia Diabetes Restrictive lung disease RIGOBERTO (obstructive sleep apnea) Morbid obesity Surgical History Hx of amputation Hx of right inguinal hernia repair Hx of eye surgery Family History Father Diabetes Heart attack Mother Hypertension Pre-diabetes Social History Household Members: Family Housing: Apartment Do you presently have visiting nurse or other home services: No Alcohol intake: current Alcohol intake frequency: holidays/special occasions only Alcohol type: hard liquor Patient Tobacco Use Status: Former Tobacco user e-Cigarette/Vaping Use: Never Used Second Hand Smoke Exposure: No service: No Current occupational status: retired Cognitive needs: No Hearing needs: No Vision needs: Yes (reading glasses) Physical Exam Vital Signs: BMI result Body Mass Index 41.4 Absence of Cushingoid features. Absence of acromegalic features. Neck exam reveals nl size thyroid about 15 gms. No thyroid nodules palpable. No carotid bruits present. Lungs CTA. Heart S1 S2, Reg R/R. No M/R/ G. Skin exam reveals absence of vitiligo or acanthosis nigricans. Abdominal exam reveals Soft NT/ND with NA BS. No organomegaly present. Neck Other: . Extrem Other: Visual exam of foot performed. L foot 5th digit amputationNo ulcerations or open lesions. No onchomycosis, no callouses.Pulses 1 + distally Sensation intactis decreased monofilament exam. Vibratory sensation sensed is decreased with 128 Hz tuning fork Assessment & Plan Assessment & Plan (1) Uncontrolled type 2 diabetes mellitus: Code(s): E11.65 - Type 2 diabetes mellitus with hyperglycemia Category: Medical Plan: This is a 59-year-old white male with a history of type 2 diabetes being treated with Ozempic, Jardiance, metformin and basal insulin with excellent improved glycemic control and known microvascular complications namely neuropathy and microalbuminuria Plan is to increase the Ozempic to 0.5 mg Q weekly and to discontinue the glipizide. As we titrate the G LP 1 agonist we may need to decrease the basal insulin further and the patient was asked to report any hypoglycemia We will have patient follow up with primary care diabetes team in 3 months Medications: New semaglutide (Ozempic) 0.5 mg (0.736 mL) subcut QWEEK 3 mL 5RF Discontinued semaglutide (Ozempic) for 4 weeks Discontinued Reason: Doctor's Order 0.25 mg (0.368 mL) subcut QWEEK 3 mL 0RF glipizide Discontinued Reason: Doctor's Order 5 mg (1/2 x 10 mg) PO BID 30 tabs 1RF Coding Level of Care Code Est Pt Level 4 (64467) Complex EM visit Add On G2211 Diagnoses Uncontrolled type 2 diabetes mellitus E11.65
[2025-01-27 15:15] VITALS: BP 124/74; PULSE 91; O2SAT 99; BMI 41.4
[2025-01-27 15:32] LABS: Glucose, Whole Blood 119 mg/dL (60-115)
== END 2025-01-27 16:07 | disposition home or self-care (01) ==
LOC: HO.ENCR 15:11
PROVIDERS: PCP Student in an Organized Health Care Education/Training Program; Visit Provider Internal Medicine Endocrinology, Diabetes & Metabolism
DX: E11.65 Type 2 diabetes mellitus with hyperglycemia (principal)
CPT/HCPCS: 99214; G2211

== ENCOUNTER → 2025-01-27 15:11 | Outpatient (BNVA) | payer MEDICARE, MEDICAID, SELFPAY | PROVIDERS: PCP Student in an Organized Health Care Education/Training Program; Visit Provider Internal Medicine Endocrinology, Diabetes & Metabolism | DX: E11.65 Type 2 diabetes mellitus with hyperglycemia (principal); Z79.4 Long term (current) use of insulin; Z79.84 Long term (current) use of oral hypoglycemic drugs | CPT/HCPCS: 82947; 99212 ==

== ENCOUNTER 2025-02-08 09:32 | Outpatient (AMB) | payer MEDICARE, MEDICAID, SELFPAY ==
--- NOTE | 2025-02-08 09:51 | A.OFFVIS_ITS ---
Intake Intake Visit Reasons: Type 2 diabetes mellitus with hyperglycemia Audiovisual Aids Technician Required: No Accompanied by: Self / Same As Patient Allergies penicillin G Allergy (Unknown, Verified 01/27/25 15:17) Unknown HPI Comprehensive Diabetes Asmnt Most Recent Diabetes Results: 2 Creatinine, (0.5-1.4) 1.11 mg/dL 10/27/24 BUN, (9-16) 18 mg/dL H 10/27/24 Sodium, (135-145) 133 mmol/L L 10/27/24 Potassium, (3.3-5.1) 4.8 mmol/L 10/27/24 Chloride, (96-108) 100 mmol/L 10/27/24 Carbon Dioxide, (22-29) 23 mmol/L 10/27/24 Calcium, (8.4-10.2) 9.5 mg/dL 10/27/24 AST, (5-37) 20 U/L 10/27/24 ALT, (0-40) 24 U/L 10/27/24 Total Protein, (6.5-8.0) 7.9 g/dL 10/27/24 Albumin, (3.5-5.0) 4.3 g/dL 10/27/24 PFSH Medical History PAD (peripheral artery disease) Non-healing wound Sepsis 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 Fever Nocturnal hypoxemia Diabetes Restrictive lung disease RIGOBERTO (obstructive sleep apnea) Morbid obesity Surgical History Hx of amputation Hx of right inguinal hernia repair Hx of eye surgery Family History Father Diabetes Heart attack Mother Hypertension Pre-diabetes Social History Household Members: Family Housing: Apartment Do you presently have visiting nurse or other home services: No Alcohol intake: current Alcohol intake frequency: holidays/special occasions only Alcohol type: hard liquor Patient Tobacco Use Status: Former Tobacco user e-Cigarette/Vaping Use: Never Used Second Hand Smoke Exposure: No service: No Current occupational status: retired Cognitive needs: No Hearing needs: No Vision needs: Yes (reading glasses) Assessment & Plan Assessment & Plan (1) Uncontrolled type 2 diabetes mellitus: Code(s): E11.65 - Type 2 diabetes mellitus with hyperglycemia Plan: Learning objectives: The patient was provided with verbal and written education on the following topics as outlined below. Assess patient education level/literacy/barriers, patient's last A1c greater than 14% patient will be due for next A1c March 2025 Patient is now taking Ozempic 0.5 mg just started a week ago Basaglar 60 units daily Jardiance 10 mg daily Patient reports 1 episode of hypoglycemia, reports he treated with fruit juice Discussed with patient if he notices an increase in hypoglycemic events to contact Diabetes Clinic for adjustment in Basaglar Reviewed patient's CGM download: At this time glucose levels are within target The patient met all learning objectives and was able to verbalize understanding and provide teach back of education topics discussed . The patient was provided with the opportunity to ask questions and all questions were answered. Topics covered in today?s session included: Insulin/Injectables (If applicable) * Storage/care of insulin?? * Injection sites? * Site rotation? * Onset, peak, duration * Drawing up insulin? * Injecting insulin/other injectables? * Sharps disposal Continuous blood glucose monitoring (if applicable) Hypoglycemia and Hyperglycemia * Signs and symptoms? * Causes?? * Treatment? * Preventing hypoglycemia? * When to seek medical attention Target Goals: * Blood glucose targets and how you feel when your blood glucose is in and out of your target ranges. * Monitoring and knowing your A1C. * What can make blood glucose go up and down and preventing high and low blood glucose. * Review of blood sugar targets in expected goal range and outside of expected goal range. * Problem solving and preventing hyper/hypoglycemia. * Sick day management of diabetes. * Using blood sugar results in decision making process in managing diabetes. ?Patient was receptive to information provided and participated in the discussion. Asked?appropriate questions and demonstrated good understanding of the topics discussed.? ? Educational Materials: The patient was provided with the following written educational materials: Target Goal handout Goal Assessment:? Use rule of 15s to treat hypoglcemia Patient Response to instructions: Comprehension of Instructions: Good Readiness to make changes:? Contemplation How confident they feel about making changes: Positive Portions of this note were created using voice recognition software, please excuse any words or phrases that may have been misinterpreted. Coding Level of Care Code Est Pt Level 1 (48366) Diagnoses Uncontrolled type 2 diabetes mellitus E11.65
== END 2025-02-08 10:41 | disposition home or self-care (01) ==
LOC: HO.ENCR 09:33
PROVIDERS: PCP Student in an Organized Health Care Education/Training Program; Visit Provider Registered Nurse Diabetes Educator
DX: E11.65 Type 2 diabetes mellitus with hyperglycemia (principal)

== ENCOUNTER → 2025-02-08 09:32 | Outpatient (BNVA) | payer MEDICARE, MEDICAID, SELFPAY | PROVIDERS: PCP Student in an Organized Health Care Education/Training Program; Visit Provider Registered Nurse Diabetes Educator | DX: E11.65 Type 2 diabetes mellitus with hyperglycemia (principal) | CPT/HCPCS: 99211 ==

== ENCOUNTER 2025-02-14 10:54 | Outpatient (AMB) | payer MEDICARE, MEDICAID, SELFPAY ==
--- NOTE | 2025-02-14 10:52 | MHC.PC.OV ---
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 He reports constant tingling and pain in both hands, which occurs all day and night. The patient was advised by Dr. Peña that his symptoms are more than just neuropathy and that he needs to see a neurosurgeon. An MRI of the cervical spine from May of this year revealed central canal stenosis and some cord compression without myelopathy. The patient has also undergone an EMG at this facility. He has previously tried both gabapentin and pregabalin for his symptoms and was followed by Dr. Rothman in neurology, who has since retired. The patient has a history of type 2 diabetes with a current GMI of 7.4, a significant improvement from a prior level of over 14. He reports a weight loss of nearly 100 pounds over the last two years. His diabetes is managed by an fitness manager. Past medical history is notable for peripheral artery disease, for which he has a stent in his left calf, coronary artery disease, hyperlipidemia, hypertension, and acid reflux. He also has a diagnosis of obstructive sleep apnea but is unable to tolerate CPAP/BiPAP therapy, having tried various masks without success and finding the sleep study itself intolerable. He is interested in the Inspire implant as a potential treatment. Medical History: - Type 2 Diabetes Mellitus - Peripheral neuropathy - Cervical spinal stenosis with cord compression - Obstructive sleep apnea, non-adherent to CPAP - Coronary artery disease - Peripheral artery disease - Hyperlipidemia - Hypertension - Gastroesophageal reflux disease - Obesity, with significant weight loss Surgical History: - Stent placement in left calf for arterial flow - Unspecified surgery approximately 2 years ago Medications: - Aspirin for coronary artery disease - Plavix for peripheral artery disease, status post stent - Basaglar 60 units at bedtime for diabetes - Jardiance 10 mg for diabetes - Metformin 1000 mg twice a day for diabetes - Ozempic 0.5 mg once a week for diabetes - Lisinopril 2.5 mg for renal protection - Simvastatin 40 mg for cholesterol - Omeprazole for acid reflux Diagnostic Results: - Labs: GMI is 7.4, improved from previous levels of 14+. - Tests and Diagnostics: EMG was previously performed at this facility. - Imaging: MRI of the cervical spine from May of this year showed central canal stenosis and cord compression without myelopathy. 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 - Housing/Family Status: He lives with his daughter and son-in-law and is the primary animal caregiver for his [id number] grandson. - Level of Activity: His functional status is active, taking care of a toddler. [facility] Medical History (Updated 02/14/25 @ 11:31 by Grant Son MD) Hyperlipidemia Cervical spinal stenosis GERD (gastroesophageal reflux disease) Hypertension PAD (peripheral artery disease) Non-healing wound Sepsis 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 Fever Nocturnal hypoxemia Diabetes Restrictive lung disease RIGOBERTO (obstructive sleep apnea) Morbid obesity Surgical History Hx of amputation Hx of right inguinal hernia repair Hx of eye surgery Family History Father Diabetes Heart attack Mother Hypertension Pre-diabetes Social History Household Members: Family Housing: Apartment Do you presently have visiting nurse or other home services: No Alcohol intake: current Alcohol intake frequency: holidays/special occasions only Alcohol type: hard liquor Patient Tobacco Use Status: Former Tobacco user e-Cigarette/Vaping Use: Never Used Second Hand Smoke Exposure: No service: No Current occupational status: retired Cognitive needs: No Hearing needs: No Vision needs: Yes (reading glasses) Questionnaire PHQ-9 Over the last 2 weeks, how often have you been bothered by any of the following problems? 1. Little interest or pleasure in doing things: not at all 2. Feeling down, depressed, or hopeless: not at all 3. Trouble falling or staying asleep, or sleeping too much: not at all 4. Feeling tired or having little energy: not at all 5. Poor appetite or overeating: not at all 6. Feeling bad about yourself - or that you are a failure or have let yourself or your family down: not at all 7. Trouble concentrating on things, such as reading the newspaper or watching television: not at all 8. Moving or speaking so slowly that other people could have noticed. Or the opposite - being so fidgety or restless that you have been moving around a lot more than usual: not at all Source: Developed by Drs. Oc Leslie, Albertina Sutherland, Gelacio Harrell and colleagues, with an educational andres from [employer]. Thrive Questionnaire Date Thrive assessed: 02/14/25 I am a: Patient Within the past 12 months, did the food you bought not last and you didn't have the money to get more?: Never true Do you have trouble paying for medicines?: No Do you have trouble getting transportation to medical appointments?: No Do you have trouble paying your heating and electricity bill?: No Do you have trouble taking care of your child, family member or friend?: No Do you have trouble with day-to-day activities such as bathing, preparing meals, shopping, managing finances, etc.?: No Are you currently unemployed and looking for a job?: No Are you interested in more education?: No THRIVE Score: 0 AUDIT C Alcohol Use Questionnaire (AUDIT-C) 1. How often do you have a drink containing alcohol?: Monthly or less 2. How many drinks containing alcohol do you have on a typical day when you are drinking?: 1 or 2 3. How often do you have six or more drinks on one occasion?: Less than monthly Total Score: 2 DANY-7 AMB Questionnaire DANY-7 Date DANY - 7 assessed: 02/14/25 Feeling nervous, anxious, or on edge: 0 = Not at all Not being able to stop or control worryin = Not at all Worrying too much about different things: 0 = Not at all Trouble relaxin = Not at all Being so restless that it is hard to sit still: 0 = Not at all Becoming easily annoyed or irritable: 0 = Not at all Feeling afraid as if something awful might happen: 0 = Not at all Total DANY-7 score (0-4 normal; 5-9 mild; 10-14 moderate; 15-21 severe): 0 Source: Developed by Drs. Oc Leslie, Albertina Sutherland, Gelacio Harrell and colleagues, with an educational andres from [employer]. Review of Systems Narrative - Constitutional: Reports weight loss of nearly 100 pounds in the past 2 years. - Neurological: Reports constant tingling and pain in both hands. - Respiratory: Denies dyspnea but has a history of obstructive sleep apnea and is intolerant of CPAP therapy. - Gastrointestinal: Reports acid reflux, managed with medication. All systems reviewed & are unremarkable except as reviewed in HPI and above Physical exam (Primary Care) Vital Signs: Last Vital Signs Temp 97.5 F 02/14/25 11:02 Pulse 98 02/14/25 11:02 BP 122/80 02/14/25 11:02 Pulse Ox 98 02/14/25 11:02 Oxygen Delivery Method Room Air 02/14/25 11:02 BMI result Body Mass Index 40.7 Tobacco/Smoking Status: Tobacco use Status Tobacco use date assessed 02/14/25 02/14/25 10:54 Patient Tobacco Use Status Former Tobacco user 02/14/25 10:54 e-Cigarette/Vaping Use Never Used 02/14/25 10:54 Thrive Assessment: Date of Thrive Assessment Date Thrive assessed 02/14/25 02/14/25 10:54 Narrative General: Alert and oriented, Well nourished, No acute distress. Eye: Pupils are equal, round and reactive to light, Intact accommodation, Extraocular movements are intact, Normal conjunctiva, Vision unchanged. HENT: Normocephalic, Atraumatic, Tympanic membranes are clear, Normal hearing, Oral mucosa is moist, No pharyngeal erythema, Ear canals patent. Respiratory: Lungs CTA bilaterally, No wheeze, Respirations are non-labored. Cardiovascular: Regular rate, Regular rhythm, S1 auscultated, S2 auscultated, No murmur, Good pulses equal in all extremities, Normal peripheral perfusion, No edema. Gastrointestinal: Soft, Non-tender, Non-distended, Normal bowel sounds, No organomegaly. Musculoskeletal: Normal range of motion, Normal strength, No tenderness, No swelling, No deformity, Normal gait. Integumentary: Warm, Dry, [place], Intact. Neurologic: Alert, Oriented, Normal sensory, Normal motor function, No focal defects, Cranial Nerves II-XII are grossly intact, Normal deep tendon reflexes. Psychiatric: Cooperative, Appropriate mood & affect, Normal judgment. Coding Level of Care Code Est Pt Level 4 (87659) Complex EM visit Add On G2211 Diagnoses Cervical spinal stenosis M48.02 Type 2 diabetes mellitus with hyperglycemia, with long-term current use of insulin E11.65; Z79.4 Diabetes mellitus complication status: with hyperglycemia Diabetes mellitus terminal supervisor insulin use: with skilled nursing use Diabetes mellitus type: type 2 Hypertension, unspecified type I10 Hypertension type: unspecified Gastroesophageal reflux disease without esophagitis K21.9 Esophagitis presence: without esophagitis RIGOBERTO (obstructive sleep apnea) G47.33 Other hyperlipidemia E78.49 Hyperlipidemia type: other hyperlipidemia Assessment & Plan Assessment & Plan (1) Cervical spinal stenosis: Comment: - The patient's symptoms of tingling and pain in the hands are attributed to a combination of neuropathy and cervical spine pathology. - An MRI from May this year showed central canal stenosis with cord compression. - The plan is to start gabapentin 100 mg three times daily and place a referral to neurosurgery for further evaluation. Code(s): M48.02 - Spinal stenosis, cervical region Category: Medical (2) Diabetes: Comment: - The condition is well-managed with a GMI of 7.4. - The patient will continue his current medication regimen, and he is followed by endocrinology. (Basaglar, Ozempic, Jardiance & Metformin) - A prescription for Basaglar was resent to the pharmacy. 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 (3) Hypertension: Comment: - Currently managed on lisinopril 2.5mg Daily - Pressures stable and used primarily for renoprotection given diabetes Code(s): I10 - Essential (primary) hypertension Category: Medical Qualifiers: Hypertension type: unspecified Qualified Code(s): I10 - Essential (primary) hypertension (4) GERD (gastroesophageal reflux disease): Comment: - Stable on Ozempic Code(s): K21.9 - Gastro-esophageal reflux disease without esophagitis Category: Medical Qualifiers: Esophagitis presence: without esophagitis Qualified Code(s): K21.9 - Gastro-esophageal reflux disease without esophagitis (5) RIGOBERTO (obstructive sleep apnea): Comment: - The patient is non-adherent with CPAP therapy due to intolerance. - He expressed interest in the Inspire implant. - A referral to an ENT specialist will be considered in a few months when a new surgeon joins the practice. - The risks of untreated sleep apnea, including cardiac arrhythmias, were discussed. Code(s): G47.33 - Obstructive sleep apnea (adult) (pediatric) Category: Medical (6) Hyperlipidemia: Comment: - Stable on Simvastatin Code(s): E78.5 - Hyperlipidemia, unspecified Category: Medical Qualifiers: Hyperlipidemia type: other hyperlipidemia Qualified Code(s): E78.49 - Other hyperlipidemia Plan: Health Maintenance: - Weight Management: Patient has lost nearly 100 pounds in the last two years. - Physical Activity: Patient maintains an active lifestyle caring for his [id number] grandson. - Cardiovascular Risk Reduction: The risks of untreated sleep apnea, including cardiac arrhythmias, were discussed. - Preventive Care: Continuation of lisinopril for renal protection. - Follow-up: Scheduled to return in 4 months. Patient was informed and verbally consented to the use of an ambient scribe for clinic note documentation during this visit. Plan I discussed with the patient that his symptoms of tingling and pain in his hands are likely due to a combination of neuropathy and his known cervical spinal stenosis, which was seen on an MRI. We will initiate gabapentin 100 mg three times daily for symptom management and I will place a referral to neurosurgery for further evaluation. We reviewed his diabetes management, which is stable, and I re-sent his prescription for Basaglar insulin to his pharmacy. We also addressed his inability to use CPAP for sleep apnea. I informed him about an ENT surgeon who will be joining our practice in a few months, and we agreed to defer a referral to discuss the Inspire implant until then. I explained the risks of untreated sleep apnea, such as abnormal heart rhythms. The patient agreed with the plan and will follow up in four months. Orders: Referrals Neurosurgery Referral M48.02 - Spinal stenosis, cervical region Medications: New gabapentin 100 mg PO TID 90 caps 0RF Refilled insulin glargine (Basaglar KwikPen U-100 Insulin) 60 units at bedtime 45 mL 3RF Patient Instructions: - Begin taking gabapentin 100 mg by mouth three times a day for the tingling and pain in your hands. - My office will send a referral for you to see a neurosurgeon for your neck and hand issues. - Continue taking all your current medications for diabetes, cholesterol, and blood pressure as prescribed. - Your prescription for Basaglar insulin has been sent again to [facility] pharmacy. - Since you are unable to use your CPAP machine, we will plan to send a referral to an Ear, Nose, and Throat (ENT) doctor at your next visit to discuss other options, like the Inspire implant. - Please schedule a follow-up appointment in our office in four months.
[2025-02-14 11:02] VITALS: BP 122/80; PULSE 98; TEMP 36.4; O2SAT 98; BMI 40.7
--- OUTSIDE RECORDS SUMMARY | 2025-02-14 13:33 | XMS_ITS | Clinical Summary ---
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 Chronic osteomyelitis of lef t foot [place] [place] [facility] [place]) 03/22/2024 Exostosis of left foot 03/22/2024 Hyperlipidemia 08/14/2010 Morbid obesity ([facility] [place], [facility] [place]) 2010 Type 2 diabetes mellitus ([facility], [facility] V 28) 08/14/2010 Sleep apnea 07/31/2010 Encounters Date Type Department Care Team Description 01/31/2025 9:15 AM EDT Office Visit Orthopedic Surgery [facility] [address] [phone] Gato Gabriel DPM Controlled type 2 diabetes mellitus with diabetic polyneuropathy, without long-term current use of insulin ([facility] [place], [facility]28) (Primary Dx); History of amputation of left foot through metatarsal bone ([facility], [facility]); Charcot foot due to diabetes mellitus ([facility], [facility] V28); Onychomycosis 11/29/2024 9:00 AM EDT Office Visit Orthopedic Surgery [facility] [address] [phone] Gato Gabriel DPM Controlled type 2 diabetes mellitus with diabetic polyneuropathy, without long-term current use of insulin ([facility], [facility]) (Primary Dx); History of amputation of left foot through metatarsal bone ([facility], [facility]); Charcot foot due to diabetes mellitus ([facility], [facility]); Onychomycosis from Last 3 Months Immunizations Immunization Administration Dates Next Due Tdap Tetanus diptheria [...] Sleep apnea 07/31/2010 DX:Sleep apnea Morbid obesity ([facility] V24, [facility] V28) 011 DX:Morbid obesity ([facility]) Hyperlipidemia 08/14/2010 DX:Hyperlipidemi a Osteomyelitis of ankle or fo ot, left, acute ([facility] V24, [facility] V28) Bone spur of foot left Arm vein blood clot R BICEP Diabetes 1.5, managed as typ e 2 ([facility], [facility] V28) [place] [...] Care Team (Late st Contact Info) Description 04/04/2025 9:15 AM EST Office Visit Orthopedic Surgery - [place] [address] [facility] [address] [place] [phone] Gato Gabriel DPM [address] [address] Health Maintenance Due Date Last Done Comments Diabetes: Annual Foot Exam 1976 Diabetes: Annual Retina Eye Exam 1976 Hepatitis B Vaccines (1 of 3 - 19+ 3-dose series) 1985 Diabetes: Annual GFR (Glomerular Filtration Rate) 11/30/2011 11/29/2010 RSV Immunization Adult Patients (1 - Risk 50-74 years 1-dose series) 2016 Zoster Vaccines (2 of 2) 07/16/2021 05/21/2021 Cholesterol Screening (Lipid Panel) 05/15/2023 11/29/2010 HIV Screening 05/15/2023 Hepatitis C Screening 05/15/2023 Medicare Annual Wellness Visit 05/15/2023 Social Influencers of Health Screening 05/15/2023 Diabetes: Annual Urine Albumin-Creatinine Ratio (uACR) 05/23/2023 Diabetes: Blood Sugar Control Test (HGBA1C) 05/23/2023 11/29/2010 Depression Screening 04/21/2024 COVID-19 Vaccine ( - season) 2024 02/02/2023, 02/22/2022, 01/24/2021, Additional history exists Influenza Vaccine (#1) 2024 , 02/22/2022, 01/24/2021 Colorectal Cancer Screening: FIT-DNA (Cologuard) 01/15/2025 01/15/2022 DTaP,Tdap,and Td Vaccines (6 - Td or [...] BMP Blood Test (11/29/2010) Pathologist [facility] Annual BMP Blood Test Abstracted Historical Provider HEALTH MAINTENANCE Final Result * (ABNORMAL) Hemoglobin A1c (11/29/2010) [facility] Hemoglobin A1C 8.2(A) 4.0 - 6.0 % Blood Venous blood specimen / Unknown Historical Provider LAB BLOOD ORDERABLES Bibi l Result * (ABNORMAL) Lipid panel (11/29/2010) [facility] LDL/HDL Ratio 4 0 - 4 Triglycerides [...] currently active code status orders. Care Teams Haulage Engine Operator Relationship Specialty Start Date End Date Zaheer Tucker MD [facility] [address] [place] [address] PCP - General Internal Medicine 07/02/24
== END 2025-02-14 11:31 | disposition home or self-care (01) ==
LOC: HO.HMCHD 10:55
PROVIDERS: PCP Student in an Organized Health Care Education/Training Program; Visit Provider Student in an Organized Health Care Education/Training Program
DX: M48.02 Spinal stenosis, cervical region (principal); E11.65 Type 2 diabetes mellitus with hyperglycemia; Z79.4 Long term (current) use of insulin; I10 Essential (primary) hypertension; K21.9 Gastro-esophageal reflux disease without esophagitis; G47.33 Obstructive sleep apnea (adult) (pediatric); E78.49 Other hyperlipidemia

== ENCOUNTER → 2025-02-14 10:54 | Outpatient (BNVA) | payer MEDICARE, MEDICAID, SELFPAY | PROVIDERS: PCP Student in an Organized Health Care Education/Training Program; Visit Provider Student in an Organized Health Care Education/Training Program | DX: M48.02 Spinal stenosis, cervical region (principal); E11.65 Type 2 diabetes mellitus with hyperglycemia; E11.42 Type 2 diabetes mellitus with diabetic polyneuropathy; I10 Essential (primary) hypertension; I25.10 Atherosclerotic heart disease of native coronary artery without angina pectoris; K21.9 Gastro-esophageal reflux disease without esophagitis; G47.33 Obstructive sleep apnea (adult) (pediatric); E78.49 Other hyperlipidemia; I73.9 Peripheral vascular disease, unspecified; Z79.02 Long term (current) use of antithrombotics/antiplatelets; Z79.4 Long term (current) use of insulin; Z79.82 Long term (current) use of aspirin; Z79.899 Other long term (current) drug therapy; Z95.820 Peripheral vascular angioplasty status with implants and grafts; Z13.39 Encounter for screening examination for other mental health and behavioral disorders | CPT/HCPCS: 96127; 99212 ==

== ENCOUNTER 2025-02-21 10:17 | Outpatient (AMB) | payer MEDICARE, MEDICAID, SELFPAY ==
--- NOTE | 2025-02-21 10:23 | A.SPINEOV_ITS ---
Intake Visit Reasons: spinal stenosis Intake Note: Mr. Augustin is here today c/o neck pain. Speaking Unit Assembler Required: No Allergies penicillin G Allergy (Unknown, Verified 02/14/25 10:53) Unknown Assessment & Plan Assessment & Plan (1) Cervical disc disorder: Code(s): M50.90 - Cervical disc disorder, unspecified, unspecified cervical region Category: Medical Plan Dear DR Son, Thank you for referring Mr Augustin to our office today. This is a very nice 59-year-old gentleman, diabetic, who last year or so developed numbness or rather tingling of his hands with loss of dexterity and fine motor movements. It happened sometime around when he was dealing with an osteomyelitis for his left foot and was on antibiotics. He ultimately ended up finishing up the antibiotics, his foot healed, but never really felt right with his hands. He has a loss of strength as well. Also reports some pain in his biceps region radiating down into his forearms, specifically when he is carrying something. He has an overlapping diagnosis of a sensory and motor polyneuropathy in his u pper extremities that was diagnosed on EMG earlier this year. He had seen Dr. Malcolm at [facility] and it was felt that his symptoms were more closely matched to the polyneuropathy rather than the cervical stenosis that was seen on his cervical MRI. He comes in today for a 2nd opinion. The symptoms are not necessarily progressing in the sense that they are getting worse actively, they just really have never gotten better since they started. He had does have balance issues but attributes this mostly to the fact that he has had to the toes amputated on the left foot. He does have numbness of both of his feet and has to wear carbon fiber implants to prevent injuries. He does have neck pain. Occasionally gets radicular arm pain but more less it is the tingling and loss of hand function that brings him here to the office today. PMH: He is a diabetic, his last A1c was in the 14 range, but he has a continuous monitor and it shows over the last month that is projected A1c would be 7.5. He has a history of peripheral vascular disease, had a stent done years ago by Dr. Caceres, has been on Plavix and aspirin since that time. He has had a number of different procedures on his feet to correct deformities or amputate toes that had vascular supply issues. 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 History of high cholesterol, GERD, MRSA bacteremia with osteomyelitis, obstructive sleep apnea, but can not tolerate his mask. Also history of morbid obesity. Social hx: Does not smoke, he quit that about 8 years ago, occasionally uses alcohol, no recreational drugs Medications: Plavix aspirin Lantus Jardiance, omeprazole, metformin, simvastatin, semaglutide, gabapentin, Plavix, aspirin Allergies: Penicillin Physical exam: Awake alert oriented no acute distress, able to stand up on his own, walk down the hallway with normal gait, tandem gait walking revealed significant instability. Gross motor examination reveals excellent strength in the upper extremities. Reflexes diminished throughout. No Dela Cruz's sign. Imaging review: Cervical MRI done at [facility] earlier this year revealed multilevel degenerative disc disease, he has at C5-6 moderate stenosis with some neuroforaminal narrowing, and at C6-7 he has moderate to severe cervical stenosis, no cord signal change seen, bilateral neuroforaminal narrowing. 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 He was seen by Dr. Malcolm at [facility] and evaluated for cervical stenosis that was seen on his imaging. She felt he was not a surgical candidate as most likely his symptoms were coming from the polyneuropathy. The symptoms have never gotten better despite improvements in his blood sugar. He is seeing us here today as a 2nd opinion. The main symptom he is having is the dexterity loss of his hands with fine motor movements and the tingling. He does have a degree of pain that is going from his elbows down into his forearms but it seems to be only when he is bending his arms. I do not think it is a true radicular pain. He does have cervical stenosis at C6-7 and although there is no cord signal change, it is moderate to severe. Cervical stenosis can cause similar symptoms with loss of fine motor movement and tingling. I will ask Dr. Romero if he he thinks this is indication enough for surgery, or if the polyneuropathy diagnosis would not yield enough improvement despite adequate decompression. I did briefly discuss these things with the patient. I will get back to him once I have a chance to speak with Dr. Romero. Thank you for allowing us to care for your patient. The total time spent with this visit with this patient was 45 minutes reviewing history, physical exam, cervical imaging review, and implementation of treatment plan or further diagnostic testing Leonel Romero MD,PhD [facility] Coding Level of Care Code New Pt Level 4 (36135) Diagnoses Cervical disc disorder M50.90
--- OUTSIDE RECORDS SUMMARY | 2025-02-21 12:20 | XMS_ITS | Clinical Summary ---
Author Organization 175 [facility] Address [address] [place] [address] Phone Care Team Providers Care Junior Loan Processor Name Role Phone Zaheer Tucker MD Primary Care Provider [phone]- [phone] Allergies Active Allergy Reactions Criticality Noted Date [...] osteophytes. Chronic osteomyelitis of lef t foot ([facility] V24, [facility] V28) 03/22/2024 Exostosis of left foot 03/22/2024 Hyperlipidemia 08/14/2010 Morbid obesity ([facility] V24, [facility] V28) 2010 Type 2 diabetes mellitus ([facility] V24, [facility] V 28) 08/14/2010 Sleep apnea 07/31/2010 Encounters Date Type Department Care Team Description 01/31/2025 9:15 AM EDT Office Visit Orthopedic Surgery [facility] [address] [phone] Gato Gabriel DPM Controlled type 2 diabetes mellitus with diabetic polyneuropathy, without long-term current use of insulin ([facility] V24, [facility] V28) (Primary Dx); History of amputation of left foot through metatarsal bone ([facility] V24, [facility] V28); Charcot foot due to diabetes mellitus ([facility] V24, [facility] V28); Onychomycosis 11/29/2024 9:00 AM EDT Office Visit Orthopedic Surgery [facility] [address] [phone] Gato Gabriel DPM Controlled type 2 diabetes mellitus with diabetic polyneuropathy, without long-term current use of insulin ([facility] V24, [facility] V28) (Primary Dx); History of amputation of left foot through metatarsal bone ([facility] V24, [facility] V28); Charcot foot due to diabetes mellitus ([facility] V24, [facility] V28); Onychomycosis from Last 3 Months Immunizations [...] Sleep apnea 07/31/2010 DX:Sleep apnea Morbid obesity ([facility] V24, [facility] V28) 011 DX:Morbid obesity ([facility]) Hyperlipidemia 08/14/2010 DX:Hyperlipidemi a Osteomyelitis of ankle or fo ot, left, acute ([facility] V24, [facility] V28) Bone spur of foot left Arm vein blood clot R BICEP Diabetes 1.5, managed as typ e 2 ([facility] V24, [facility] V28) Port-A-Cath in place ROY R U PPER CHEST Family History Relation Name Status Comments Father (Age 68) [place], diabet es, hyperlipidemia Mother Alive HTN, diabetes, [...] AM EST Office Visit Orthopedic Surgery - [place] [address] [place] [address] [place] [phone] Nery, Gato A, [address] [phone] Health Maintenance Due Date Last Done Comments [...] * Annual BMP Blood Test (11/29/2010) Pathologist [facility] Annual BMP Blood Test Abstracted Historical Provider HEALTH MAINTENANCE Final Result * (ABNORMAL) Hemoglobin A1c (11/29/2010) [facility] Hemoglobin A1C 8.2(A) 4.0 - 6.0 % Blood Venous blood specimen / Unknown Historical Provider LAB BLOOD ORDERABLES Bibi l Result * (ABNORMAL) Lipid panel (11/29/2010) [facility] LDL/HDL Ratio 4 0 - 4 Triglycerides [...] currently active code status orders. Care Teams Junior Loan Processor Relationship Specialty Start Date End Date Zaheer Tucker MD [facility] [address] [place] [address] PCP - General Internal Medicine 07/02/24
== END 2025-02-21 11:15 | disposition home or self-care (01) ==
LOC: HO.HNS 10:17
PROVIDERS: PCP Student in an Organized Health Care Education/Training Program; Referring Provider Student in an Organized Health Care Education/Training Program; Visit Provider Physician Assistant
DX: M50.90 Cervical disc disorder, unspecified, unspecified cervical region (principal)
CPT/HCPCS: 99204

== ENCOUNTER → 2025-02-21 10:17 | Outpatient (BNVA) | payer MEDICARE, MEDICAID, SELFPAY | PROVIDERS: PCP Student in an Organized Health Care Education/Training Program; Referring Provider Student in an Organized Health Care Education/Training Program; Visit Provider Physician Assistant | DX: M50.90 Cervical disc disorder, unspecified, unspecified cervical region (principal) | CPT/HCPCS: 99202 ==

== ENCOUNTER 2025-02-23 11:14 | Outpatient (AMB) | payer MEDICARE, MEDICAID, SELFPAY ==
--- NOTE | 2025-02-23 11:28 | A.OFFVIS_ITS ---
VS Expanded 02/23/25 11:42 02/23/25 11:55 Height 6 ft 6 ft Weight 304 lb 7.334 oz 304 lb BMI 41.3 41.2 Intake Visit Reasons: T2DM Allergies penicillin G Allergy (Unknown, Verified 02/14/25 10:53) Unknown Nutrition Presentation Details: Pt presents for MNT for T2DM Patient reports currently having no meal routine. Patient reports having had success with meal replacements in the past and will like to retry meal replacement to help in meal routine in glucose control Food frequency Fruits: 0-1 per day Vegetables: 3 per day Dairy for per day or more Fish 0 to once per week Beverages: Water: Iced tea sometimes soda Physical activity: Daily life activities Alcohol: Occasional MCY-Dueqvnz-Ua.Jeor Equation Height: 6 ft Weight: 304 lb Resting Metabolic Rate: 2240.18 Calculated Activity Level: Sedentary Calories Needed to Maintain Weight: 2688.22 Diagnosis Nutrition problem #1: excessive energy intake As related to (etiology) #1: diagnosis As evidenced by (sign/symptom) #1: high BMI and knowledge deficit of diet [facility] Medical History (Updated 03/01/25 @ 08:33 by Jeanna Peñaloza, RD, LDN) Hyperlipidemia Cervical spinal stenosis GERD (gastroesophageal reflux disease) Hypertension PAD (peripheral artery disease) Non-healing wound Sepsis 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 Fever Nocturnal hypoxemia Diabetes Restrictive lung disease RIGOBERTO (obstructive sleep apnea) Morbid obesity Surgical History Hx of amputation Hx of right inguinal hernia repair Hx of eye surgery Family History Father Diabetes Heart attack Mother Hypertension Pre-diabetes Social History Household Members: Family Housing: Apartment Do you presently have visiting nurse or other home services: No Alcohol intake: current Alcohol intake frequency: holidays/special occasions only Alcohol type: hard liquor Patient Tobacco Use Status: Former Tobacco user e-Cigarette/Vaping Use: Never Used Second Hand Smoke Exposure: No service: No Current occupational status: retired Cognitive needs: No Hearing needs: No Vision needs: Yes (reading glasses) Assessment & Plan Assessment & Plan (1) Diabetes: Code(s): E11.9 - Type 2 diabetes mellitus without complications Category: Medical Qualifiers: Diabetes mellitus type: type 2 Diabetes mellitus custodial insulin use: with superintendent marine oil terminal use Diabetes mellitus complication status: with hyperglycemia Qualified Code(s): E11.65 - Type 2 diabetes mellitus with hyperglycemia; Z79.4 - terminal system operator (current) use of insulin Plan: current wt:138 kg ( ) est kcal needs as per MSJ: 2700 est protein needs as per 1 g/kg BW: 140 est fluid needs as per 30 ml/kg BW: 4100 Recommended fiber > 12 g /day and gradually increase up to 25-28 g /day or as tolerated Nutrition topics discussed : Reviewed (R), Pt verbalized understanding (V) , not applicable (N/A) R, : Healthy Plate Method Concept: R, : Carbohydrates: food sources of carbohydrates, relationship of carbohydrates to blood glucose, fatty liver GI health. Recommended total amount of carbohydrates per meals and snack. Differences between simple carbohydrates and complex carbohydrates R, : Lean protein foods including vegan , vegetarian sources of protein. Benefits of protein (including but not limited to healing, nutritional value , benefits in weight loss, glucose control R, V, N/A: Fats : Source of fats, benefits of fats. Difference between saturated and unsaturated fats. Saturated fats and its contribution to inflammation R, V, N/A: Fiber: food sources and role of fiber in the diet (including but not limited to its role as a prebiotic, benefits in constipation, role in IBS , role in glucose control and cholesterol level) R, : Hydration: role of hydration and prevention of dehydration or over hydration. Foods and water content. R, V, N/A: Vitamins and Minerals in foods and supplements R, V, N/A: Interpreting food labels, including serving size, macronutrients, vitamins, minerals, allergens, ingredient list , % daily value Patient Instructions: Work on reducing total carbs per meal to less than 100 g following healthy plate method (2-3 meals a day) Choose complex carbohydrate Try 1 meal replacement a day Coding Level of Care Code Nutr Indiv Intake (74399) Diagnoses Type 2 diabetes mellitus with hyperglycemia, with long-term current use of insulin E11.65; Z79.4 Diabetes mellitus type: type 2 Diabetes mellitus superintendent marine oil terminal insulin use: with custodial use Diabetes mellitus complication status: with hyperglycemia Time Spent (min) 30
[2025-02-23 11:42] VITALS: BMI 41.3
--- OUTSIDE RECORDS SUMMARY | 2025-02-23 13:38 | XMS_ITS | Clinical Summary ---
Author Organization 175 [facility] Address [address] [place] [address] Phone Care Team Providers Care Skill Labor Name Role Phone Zaheer Tucker MD Primary Care Provider [phone]- [phone] Allergies Active Allergy Reactions Criticality Noted Date [...] osteophytes. Chronic osteomyelitis of lef t foot ([facility] V24, [facility] V28) 03/22/2024 Exostosis of left foot 03/22/2024 Hyperlipidemia 08/14/2010 Morbid obesity ([facility] V24, [facility] V28) 2010 Type 2 diabetes mellitus ([facility] V24, [facility] V 28) 08/14/2010 Sleep apnea 07/31/2010 Encounters Date Type Department Care Team Description 01/31/2025 9:15 AM EDT Office Visit Orthopedic Surgery [facility] [address] [phone] Gato Gabriel DPM Controlled type 2 diabetes mellitus with diabetic polyneuropathy, without long-term current use of insulin ([facility] V24, [facility] V28) (Primary Dx); History of amputation of left foot through metatarsal bone ([facility] V24, [facility] V28); Charcot foot due to diabetes mellitus ([facility] V24, [facility] V28); Onychomycosis 11/29/2024 9:00 AM EDT Office Visit Orthopedic Surgery [facility] [address] [phone] Gato Gabriel DPM Controlled type 2 diabetes mellitus with diabetic polyneuropathy, without long-term current use of insulin ([facility] V24, [facility] V28) (Primary Dx); History of amputation of left foot through metatarsal bone ([facility] V24, [facility] V28); Charcot foot due to diabetes mellitus ([facility] V24, [facility] V28); Onychomycosis from Last 3 Months Immunizations [...] Sleep apnea 07/31/2010 DX:Sleep apnea Morbid obesity ([facility] V24, [facility] V28) 011 DX:Morbid obesity ([facility]) Hyperlipidemia 08/14/2010 DX:Hyperlipidemi a Osteomyelitis of ankle or fo ot, left, acute ([facility] V24, [facility] V28) Bone spur of foot left Arm vein blood clot R BICEP Diabetes 1.5, managed as typ e 2 ([facility] V24, [facility] V28) Port-A-Cath in place ROY R [...] AM EST Office Visit Orthopedic Surgery - [place] [facility] [address] [facility] [address] [place] [phone] Gato Gabriel DPM [address] [phone] Health Maintenance Due Date Last Done Comments [...] * Annual BMP Blood Test (11/29/2010) Pathologist [facility] Annual BMP Blood Test Abstracted Historical Provider HEALTH MAINTENANCE Final Result * (ABNORMAL) Hemoglobin A1c (11/29/2010) [facility] Hemoglobin A1C 8.2(A) 4.0 - 6.0 % Blood Venous blood specimen / Unknown Historical Provider LAB BLOOD ORDERABLES Bibi l Result * (ABNORMAL) Lipid panel (11/29/2010) [facility] LDL/HDL Ratio 4 0 - 4 [...] currently active code status orders. Care Teams Skill Labor Relationship Specialty Start Date End Date Zaheer Tucker MD [facility] [address] [place] [address] PCP - General Internal Medicine 07/02/24
[2025-03-01 08:35] VITALS: BMI 41.2
== END 2025-02-23 12:30 | disposition home or self-care (01) ==
LOC: HO.ENCR 11:15
PROVIDERS: PCP Student in an Organized Health Care Education/Training Program; Visit Provider Dietitian, Registered
DX: E11.65 Type 2 diabetes mellitus with hyperglycemia (principal); Z79.4 Long term (current) use of insulin

== ENCOUNTER → 2025-02-23 11:14 | Outpatient (BNVA) | payer MEDICARE, MEDICAID, SELFPAY | PROVIDERS: PCP Student in an Organized Health Care Education/Training Program; Visit Provider Dietitian, Registered | DX: E11.65 Type 2 diabetes mellitus with hyperglycemia (principal); Z79.4 Long term (current) use of insulin | CPT/HCPCS: 97802 ==

== ENCOUNTER 2025-04-07 10:51 | Outpatient (AMB) | payer MEDICARE, MEDICAID, SELFPAY ==
--- OUTSIDE RECORDS SUMMARY | 2025-04-04 09:15 | XMS_ITS | Encounter Summary ---
Author Organization [facility] Address [address] [place] [address] Care Team Providers Care Double Bottom Driver Name Role Phone Zaheer Tucker MD Primary Care Provider [phone]- [phone] Reason for Visit * Reason Comments Foot Pain Chronic osteomyeliti s of left foot (CMS/HCC)Dehiscence of operative wound, subsequent encounterUlcer of left heel, with fat layer exposed Encounter Details Date Type Department Care Team (Late st Contact Info) Description 04/04/2025 9:15 AM EST Office Visit Orthopedic Surgery - [place] [address] [phone] Gato Gabriel, DPM 175 [facility] [address] [place] [address] Controlled type 2 diabetes mellitus with diabetic polyneuropathy, without long-term current use of insulin (CMS/HCC V24, CMS/HCC V28) (Primary Dx); History of amputation of left foot through metatarsal bone (CMS/HCC V24, CMS/HCC V28); Charcot foot due to diabetes mellitus (CMS/HCC V24, CMS/HCC V28); Onychomycosis Social History Tobacco Use Types Packs/Day Years Used Date Smoking Tobacco: Former Cigarettes Passive Smoke Exposure: Past Smokeless Tobacco: Never Alcohol Use Standard Drinks/Week Comments No 0 (1 standard drink = 0.6 oz pur e alcohol) Sex and Gender Information Value Date Recorded Sex Assigned at Male 03/25/2024 5:25 PM EST Legal Sex Male 8:19 PM EST Gender Identity Male 03/25/2024 5:25 PM EST Sexual Orientation Straight 03/25/2024 5: 25 PM EST documented as of this encounter Progress Notes * Gato Gabriel DPM - 04/04/2025 9:15 AM EST Referring MD: Avinash Last PCP visit: 06/15/2024 IDENTIFIER: Demetria is a 59 y.o. year old male who presents for consultation. CC: Left foot ulceration HPI: 59-year-old male returns office. Patient notes he has been having some increased sharp pain every once in a while to the left lateral foot. Patient denies any recent trauma to the area. Patient is concerned with discoloration to the nail of the right great toe and second toe. Patient denies trauma to that area as well. Patient denies any recent open wounds. Patient is here for evaluation and treatment ROS: GENERAL: Pt denies nausea, fever, vomiting, [...] Active Problem List Diagnosis Hyperlipidemia Morbid obesity ([facility] V24, [facility] V28) Sleep apnea Type 2 diabetes mellitus ([facility] V24, [facility] V28) Chronic osteomyelitis of left foot ([facility] V24, [facility] V28) Exostosis of left foot Cervical spondylosis without myelopathy SOCIAL HISTORY: Social History Tobacco Use Smoking status: Former Types: Cigarettes Passive exposure: Past Smokeless tobacco: Never Substance Use Topics Alcohol use: No ACTIVE MEDICATIONS: No outpatient medications have been marked as taking for the 04/04/25 encounter (Office Visit) withGato aGbriel DPM. ALLERGIES: @ALL@ PHYSICAL EXAM: There were no vitals taken for this visit. PODIATRIC EXAMINATION: GENERAL: Patient appears well nourished, with NAD. VASCULAR: Dorsalis pedis pulses are 1/4 bilaterally and Posterior tibial pulses are 2/4 bilaterally. Capillary filling time within normal limits the digits. No pallor on elevation or rubor on dependency. Positive hair growth. No varicosities. Denies rest pain or claudication pain. NEUROLOGICAL: Sharp/dull sensation diminished, protective sensation diminished on [place]. Multipleperipheral rhombus bilaterally ORTHOPEDIC: Good muscle strength 5/5 of all flexors and extensors. Dorsi flexion of ankle ,10 degrees, plantar flexion WNL. No muscle atrophy. 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 Charcot arthropathy of the left foot DERMATOLOGICAL:.No new openings to the left foot. Some remaining scar tissue from multiple surgeries. Continued wound to the IP joint of the right great toe with no erythema. Nails are elongated dystrophic discolored x 8 with some little break. Callus formation to the lateral column of the left plantar foot BIOMECHANICS: STJ ROM wnl, MTJ ROM wnl, 1st MPJ ROM wnl. IMAGING: Imaging: Notable Charcot breakdown of the midtarsal joint with medial displacement. Some concern for heterotopic bone formation at the resected base of the fourth metatarsal. IMPRESSION: 1. Controlled type 2 diabetes mellitus with diabetic polyneuropathy, without long-term current use of insulin (CMS/HCC V24, CMS/HCC V28) 2. History of amputation of left foot through metatarsal bone ([facility] V24, CMS/HCC V28) 3. Charcot foot due to diabetes mellitus (CMS/HCC V24, CMS/HCC V28) 4. Onychomycosis PLAN: Pt was seen and examined, history reviewed. Patient was encouraged to continue with tight glucose control in order to limit complications associated with diabetes Patient understands that the color changes to the nails are most likely from the rubbing his shoe gear. Patient instructed to check his shoes and be sure there is nothing pushing against his toes when ambulating Patient was encouraged to continue with the proper shoe gear and Plastizote inserts both to supportthe previous amputations but also to decrease further Charcot breakdown Nail debridement performed to nails 1-5 bilateral [...] Care Team (Late st Contact Info) Description 06/09/2025 9:30 AM EST Office Visit Orthopedic Surgery - [place] [address] [phone] Gato Gabriel DPM [address] [address] documented as of this encounter Visit Diagnoses Diagnosis Controlled type 2 diabetes mellitus with diabetic polyneuropathy, without long- term current use of insulin ([facility] V24, [facility] V28)- Primary History of amputation of left foot through metatarsal bone ([facility] V24, [facility] V28) Charcot foot due to diabetes mellitus ([facility] V24, [facility] V28) Onychomycosis Dermatophytosis of nail documented in this encounter Care Teams Double Bottom Driver Relationship Specialty Start Date End Date Zaheer Tucker MD [address] [place] [address] PCP - General Internal Medicine 07/02/24 documented as of this encounter
[2025-04-07 10:57] VITALS: BP 118/82; PULSE 94; O2SAT 96; BMI 41.7
--- NOTE | 2025-04-07 10:57 | MHC.OFFVIS ---
Vital Signs 04/07/25 10:57 Height 6 ft Weight 307 lb 8.717 oz BMI 41.7 BP 118/82 Blood Pressure Location Lt brachial Position Sitting Pulse 94 Pulse Source Pulse Oximeter Pulse Oximetry (%) 96 Oxygen Delivery Method Room Air Intake Visit Reasons: Type 2 diabetes mellitus with hyperglycemia Intake Note: Patient present today for T2DM follow up. 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 Initially diagnosed with T2DM in 10 yrs ago . Never seen endo before Was initially started on treatment with metformin . Current regimen , metformin 1000 mg BID, Ozempic 1 mg Qwkly just increased last wk . Jardiance 10 mg QD Basaglar 60 units in HS Sensor Kevin download shows the sensors active 93% of the time. Average glucose is 151 with G mi of 6.9% and variability of 27.1%. 78% of the blood sugars were in target with 22% hyperglycemia and no hypoglycemia, Switched to Dexcom Reports low sugars No . Family history of T2DM in father , mother . Has eyes checked yearly, last eye exam 01/05/25 , denies retinopathy. Has neuropathy, last foot exam 11/29/24 , sees podiatry. Denies nephropathy, on NADER/ARB. . Has HLD, on statin. Denies CAD. Had diabetes education. [facility] Medical History (Updated 03/01/25 @ 08:[address] Peñ[address]za RD, LDN) Hyperlipidemia Cervical spinal stenosis GERD (gastroesophageal reflux disease) Hypertension PAD (peripheral artery disease) Non-healing wound Sepsis 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 Fever Nocturnal hypoxemia Diabetes Restrictive lung disease RIGOBERTO (obstructive sleep apnea) Morbid obesity Surgical History Hx of amputation Hx of right inguinal hernia repair Hx of eye surgery Family History Father Diabetes Heart attack Mother Hypertension Pre-diabetes Social History Household Members: Family Housing: Apartment Do you presently have visiting nurse or other home services: No Alcohol intake: current Alcohol intake frequency: holidays/special occasions only Alcohol type: hard liquor Patient Tobacco Use Status: Former Tobacco user e-Cigarette/Vaping Use: Never Used Second Hand Smoke Exposure: No service: No Current occupational status: retired Cognitive needs: No Hearing needs: No Vision needs: Yes (reading glasses) Physical Exam Vital Signs: Last Vital Signs Pulse 94 04/07/25 10:57 BP 118/82 04/07/25 10:57 Pulse Ox 96 04/07/25 10:57 Oxygen Delivery Method Room Air 04/07/25 10:57 BMI result Body Mass Index 41.7 Absence of Cushingoid features. Absence of acromegalic features. Neck exam reveals nl size thyroid about 15 gms. No thyroid nodules palpable. No carotid bruits present. Lungs CTA. Heart S1 S2, Reg R/R. No M/R/ G. Skin exam reveals absence of vitiligo or acanthosis nigricans. Abdominal exam reveals Soft NT/ND with NA BS. No organomegaly present. Neck Other: . Extrem Other: Visual exam of foot performed. L foot 5th digit amputationNo ulcerations or open lesions. No onchomycosis, no callouses.Pulses 1 + distally Sensation intactis decreased monofilament exam. Vibratory sensation sensed is decreased with 128 Hz tuning fork Results AMB Hemoglobin A1c AMB Hemoglobin A1c 7.3 % Last Edit by JOCELYNE Arechiga on 04/07/25 11:16 Results Reviewed Results Reviewed: Laboratory Last Values Glucose (Clinic) 122 mg/dL (60-115) H 04/07/25 11:06 Assessment & Plan Assessment & Plan (1) Uncontrolled type 2 diabetes mellitus: Code(s): E11.65 - Type 2 diabetes mellitus with hyperglycemia Category: Medical Plan: This is a 59-year-old white male with a history of type 2 diabetes being treated with Ozempic, Jardiance, metformin and basal insulin with excellent improved glycemic control and known microvascular complications namely neuropathy and microalbuminuria Plan is continue present management . Otherwise patient will follow up with primary care diabetes team in 3 months. We will check lipid profile. I placed an order to pain management to evaluate upper extremity pain Orders: Orders Lipid Panel Today E11.65 - Type 2 diabetes mellitus with hyperglycemia AMB Hemoglobin A1c Today E11.65 - Type 2 diabetes mellitus with hyperglycemia, Z13.9 - Encounter for screening, unspecified Referrals Pain Management Referral E11.65 - Type 2 diabetes mellitus with hyperglycemia Coding Level of Care Code Est Pt Level 4 (30057) Add On Problem Visit Only Diagnoses Uncontrolled type 2 diabetes mellitus E11.65
[2025-04-07 11:10] LABS: Glucose, Whole Blood 122 mg/dL (60-115)
--- OUTSIDE RECORDS SUMMARY | 2025-04-07 13:58 | XMS_ITS | Clinical Summary ---
Author Organization 175 [facility] Address 175 [place] [address] Phone Care Team Providers Care Gift Wrapper Name Role Phone Zaheer Tucker MD Primary Care Provider +1- [phone] Allergies Active Allergy Reactions Criticality Noted Date [...] growth of the osteophytes. Chronic osteomyelitis of left foot 03/22/2024 Exostosis of left foot 03/22/2024 Hyperlipidemia 08/14/2010 Morbid obesity 08/14/2010 Type 2 diabetes mellitus 08/14/2010 Sleep apnea 07/31/2010 Encounters Date Type Department Care Team Description 04/04/2025 9:15 AM EST Office Visit Orthopedic Surgery [address] [phone] Gato Gabriel DPM Controlled type 2 diabetes mellitus with diabetic polyneuropathy, without long-term current use of insulin ([facility] V24, [facility] V28) (Primary Dx); History of amputation of left foot through metatarsal bone ([facility] V24, [facility] V28); Charcot foot due to diabetes mellitus ([facility] V24, [facility] V28); Onychomycosis 01/31/2025 9:15 AM EDT Office Visit Orthopedic Surgery [facility] [address] [place] [phone] Gato Gabriel DPM Controlled type 2 diabetes mellitus with diabetic polyneuropathy, without long-term current use of insulin ([facility] V24, [facility] V28) (Primary Dx); History of amputation of left foot through metatarsal bone ([facility] V24, [facility] V28); Charcot foot due to diabetes mellitus ([facility] V24, [facility] V28); Onychomycosis from Last 3 Months Immunizations [...] Sleep apnea 07/31/2010 DX:Sleep apnea Morbid obesity ([facility] V24, [facility] V28) 011 DX:Morbid obesity ([facility]) Hyperlipidemia 08/14/2010 DX:Hyperlipidemi a Osteomyelitis of ankle or fo ot, left, acute ([facility] V24, [facility] V28) Bone spur of foot left Arm vein blood clot R BICEP Diabetes 1.5, managed as typ e 2 ([facility] V24, [facility] V28) Port-A-Cath in place ROY R U PPER CHEST Family History Relation Name Status Comments Father (Age 68) [place], diabet es, hyperlipidemia Mother Alive HTN, diabetes, [...] Orientation Straight 03/25/2024 5: 25 PM EST Last Filed Vital Signs Vital Sign Reading [...] AM EST Office Visit Orthopedic Surgery - [place] [address] 175 [facility] [address] [place] [phone] Gato Gabriel DPM 175 [facility] [address] [place] [address] Health Maintenance Due Date Last Done Comments [...] exists Influenza Vaccine (#1) 2024 , 02/22/2022, 01/24/2021, Additional history exists Colorectal Cancer Screening: FIT-DNA (Cologuard) 01/15/2025 01/15/2022 [...] Test (11/29/2010) Annual BMP Blood Test Abstracted [facility] Provider HEALTH MAINTENANCE Final Result * (ABNORMAL) Hemoglobin A1c (11/29/2010) Hemoglobin A1C 8.2(A) 4.0 - 6.0 % Blood Venous blood specimen / Unknown [facility] Provider LAB BLOOD ORDERABLES Bibi l Result * (ABNORMAL) Lipid panel (11/29/2010) LDL/HDL Ratio 4 0 - 4 Triglycerides 88 0 - 150 mg/dL Cholesterol 200 0 - 200 mg/dL HDL 55 >=40 mg/dL LDL Cholesterol 128(A) 0 - 100 mg/dL Blood Venous blood specimen / Unknown [facility] Provider LAB BLOOD ORDERABLES Bibi l Result [...] currently active code status orders. Care Teams Gift Wrapper Relationship Specialty Start Date End Date Zaheer Tucker MD [facility] [address] [place] [address] PCP - General Internal Medicine 07/02/24
== END 2025-04-07 11:43 | disposition home or self-care (01) ==
LOC: HO.ENCR 10:52
PROVIDERS: PCP Student in an Organized Health Care Education/Training Program; Visit Provider Internal Medicine Endocrinology, Diabetes & Metabolism
DX: Z13.9 Encounter for screening, unspecified (principal); E11.65 Type 2 diabetes mellitus with hyperglycemia
CPT/HCPCS: 99214; G2211

== ENCOUNTER → 2025-04-07 10:51 | Outpatient (BNVA) | payer MEDICARE, MEDICAID, SELFPAY | PROVIDERS: PCP Student in an Organized Health Care Education/Training Program; Visit Provider Internal Medicine Endocrinology, Diabetes & Metabolism | DX: E11.65 Type 2 diabetes mellitus with hyperglycemia (principal); Z79.84 Long term (current) use of oral hypoglycemic drugs | CPT/HCPCS: 82947; 83036; 99212 ==

== ENCOUNTER 2025-04-18 06:55 | Outpatient (REF) | payer MEDICARE, MEDICAID, SELFPAY ==
--- OUTSIDE RECORDS SUMMARY | 2025-04-18 06:58 | XMS_ITS | Clinical Summary ---
Author Organization 175 [facility] Address 175 [place] [address] Phone Care Team Providers Care Senior Design Engineer Name Role Phone Zaheer Tucker MD Primary Care Provider +1- [phone] Allergies Active Allergy Reactions Criticality Noted Date [...] 9:15 AM EST Office Visit Orthopedic Surgery [address] [phone] Gato Gabriel DPM Controlled type 2 diabetes mellitus with diabetic polyneuropathy, without long-term current use of insulin ([facility] V24, [facility] V28) (Primary Dx); History of amputation of left foot through metatarsal bone ([facility] V24, [facility] V28); Charcot foot due to diabetes mellitus ([facility] V24, [facility] V28); Onychomycosis 01/31/2025 9:15 AM EDT Office Visit Orthopedic Surgery [facility] [address] [place] [phone] Gato Gabriel DPM Controlled type 2 diabetes mellitus with diabetic polyneuropathy, without long-term current use of insulin ([facility] V24, [facility] V28) (Primary Dx); History of amputation of left foot through metatarsal bone ([facility] V24, [facility] V28); Charcot foot due to diabetes mellitus ([facility] V24, [facility] V28); Onychomycosis from Last 3 Months Immunizations [...] Sleep apnea 07/31/2010 DX:Sleep apnea Morbid obesity ([facility] V24, [facility] V28) 011 DX:Morbid obesity ([facility]) Hyperlipidemia 08/14/2010 DX:Hyperlipidemi a Osteomyelitis of ankle or fo ot, left, acute ([facility] V24, [facility] V28) Bone spur of foot left Arm vein blood clot R BICEP Diabetes 1.5, managed as typ e 2 ([facility] V24, [facility] V28) Port-A-Cath in place ROY R U PPER CHEST Family History Relation Name Status Comments Father (Age 68) [place], diabet es, hyperlipidemia Mother Alive HTN, diabetes, [...] AM EST Office Visit Orthopedic Surgery - [place] 250 175 [facility] [address] [place] [phone] Gato Gabriel DPM 175 [facility] [address] [place] [address] Health Maintenance Due Date Last Done Comments [...] Test (11/29/2010) Annual BMP Blood Test Abstracted [facility] Provider HEALTH MAINTENANCE Final Result * (ABNORMAL) Hemoglobin A1c (11/29/2010) Hemoglobin A1C 8.2(A) 4.0 - 6.0 % Blood Venous blood specimen / Unknown [facility] Provider LAB BLOOD ORDERABLES Bibi l Result * (ABNORMAL) Lipid panel (11/29/2010) LDL/HDL Ratio 4 0 - 4 Triglycerides 88 0 - 150 mg/dL Cholesterol 200 0 - 200 mg/dL HDL 55 >=40 mg/dL LDL Cholesterol 128(A) 0 - 100 mg/dL Blood Venous blood specimen / Unknown [facility] Provider LAB BLOOD ORDERABLES Bibi l [...] currently active code status orders. Care Teams Senior Design Engineer Relationship Specialty Start Date End Date Zaheer Tucker MD [facility] [address] [place] [address] PCP - General Internal Medicine 07/02/24
[2025-04-18 07:43] LABS: Cholesterol 178 mg/dL (<200); HDL Cholesterol 46 mg/dL (>40); Triglycerides 106 mg/dL (<150)
== END 2025-04-18 06:56 | disposition home or self-care (01) ==
LOC: HO.LAB 06:55
PROVIDERS: PCP Student in an Organized Health Care Education/Training Program; Visit Provider Internal Medicine Endocrinology, Diabetes & Metabolism
DX: E11.65 Type 2 diabetes mellitus with hyperglycemia (principal)
CPT/HCPCS: 36415; 80061

== ENCOUNTER 2025-04-18 09:21 | Outpatient (AMB) | payer MEDICARE, MEDICAID, SELFPAY ==
--- NOTE | 2025-04-18 10:07 | A.OFFVIS_ITS ---
Intake Intake Visit Reasons: 60 min Ict Developer Required: No Accompanied by: Self / Same As Patient Allergies penicillin G Allergy (Unknown, Verified 04/07/25 11:04) Unknown HPI Comprehensive Diabetes Asmnt Most Recent Diabetes Results: 2 Cholesterol, (<200) 178 mg/dL Today HDL Cholesterol, (>40) 46 mg/dL Today Triglycerides, (<150) 106 mg/dL Today PFSH Medical History (Updated 03/01/25 @ 08:33 by Jeanna Peñaloza, RD, LDN) Hyperlipidemia Cervical spinal stenosis GERD (gastroesophageal reflux disease) Hypertension PAD (peripheral artery disease) Non-healing wound Sepsis 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 Fever Nocturnal hypoxemia Diabetes Restrictive lung disease RIGOBERTO (obstructive sleep apnea) Morbid obesity Surgical History Hx of amputation Hx of right inguinal hernia repair Hx of eye surgery Family History Father Diabetes Heart attack Mother Hypertension Pre-diabetes Social History Household Members: Family Housing: Apartment Do you presently have visiting nurse or other home services: No Alcohol intake: current Alcohol intake frequency: holidays/special occasions only Alcohol type: hard liquor Patient Tobacco Use Status: Former Tobacco user e-Cigarette/Vaping Use: Never Used Second Hand Smoke Exposure: No service: No Current occupational status: retired Cognitive needs: No Hearing needs: No Vision needs: Yes (reading glasses) Assessment & Plan Assessment & Plan (1) Uncontrolled type 2 diabetes mellitus: Code(s): E11.65 - Type 2 diabetes mellitus with hyperglycemia Plan: Learning objectives: The patient was provided with verbal and written education on the following topics as outlined below. The patient met all learning objectives and was able to verbalize understanding and provide teach back of education topics discussed . The patient was provided with the opportunity to ask questions and all questions were answered. Patient Assessment Assess patient education level/literacy/barriers, patient's A1c on 04/07/2025 7.3% down from greater than 14% in December 2024 Patient experienced 1 episode of hypoglycemia, verified hypoglycemia with glucometer. Treated hypoglycemia with chocolate. Reviewed with patient how to treat hypoglycemia with 15 g of fast acting carbohydrate Patient has transitioned from Kevin 3+ due to adhesion issues to Dexcom G7 Patient only had 5 days worth of glucose data: Patient is currently taking Ozempic 1 mg weekly, requested prescription for Ozempic 2 mg weekly Diabetes Complications: ?Nephropathy :Kidney Disease ?diabetes can damage the kidneys, which is not only can cause them to fail but can make them lose their ability to filter waste from the blood? ?Retinopathy: Eye complications ?Retinopathy? is the commonest long-term complication of diabetes. It is leading cause of blindness Besides, Retinopathy- People with diabetes? are also prone to cataract and Glaucoma. ?Neuropathy: Nerve damage -It involves temporary or permanent damage to nerve tissue. Nerve tissue gets injured mainly due to decreased blood flow and rise in blood glucose levels. This damage can lead to pain , or loss of sensation it can also include sexual dysfunction in both men and women ? Infections poor healing: People with diabetes? have increased susceptibility to various infections, such as? pneumonias, pyelonephritis, carbuncles and diabetic ulcers. This may be due to poor blood supply, reduced cellular immunity or hyperglycemia. ?Heart Disease And Stroke: People with diabetes are four times more prone to develop Heart disease than those who do not have diabetes ?Depression: Feeling down once in awhile is normal, but some people feel sadness that just won't go away. Life for them seems hopeless. Feeling this way most of the day for two weeks or more is a sign of serious depression ?Gum Disease: People get gum disease when plaque destroys the gums and bone around the teeth. People with diabetes can get gum disease from having high blood glucose levels for a long time Foot problems most often happen when there is nerve damage, also called neuropathy. This can cause tingling, pain (burning or stinging), or weakness in the foot. It can also cause loss of feeling in the foot, so you can injure it and not know it. Poor blood flow or changes in the shape of your feet or toes may also cause problems. Take good care of your feet. Check them daily, and see your doctor right away if you see any signs of foot problems. Do not go barefoot, indoors or outdoors. Lifestyle * Work * Travel * Stress management * Problem solving Know your goals * A1C * Blood sugar targets * Blood pressure * Cholesterol/LDL Urine microalbumin Smart Goal Assessment:Use rule of 15s to treat hypoglcemia Pt met goal 50% New Goal:? Educational Materials: The patient was provided with the following written educational materials: ADCES 7 Healthy Behaviors Reducing Risks handout Patient Response to instructions: Comprehension of Instructions: Good Readiness to make changes: Action How confident they feel about making changes: Positive Portions of this note were created using voice recognition software, please excuse any words or phrases that may have been misinterpreted. Medications: Discontinued 2 semaglutide (Ozempic) Discontinued Reason: Doctor's Order 1 mg (0.75 mL) subcut QWEEK 3 mL 4RF Patient Instructions: Include regular daily activity. ADA recommends 30 minutes of exercise 5 days a week. Weight loss talk to PCP or Forming Machine Adjuster before starting new plan. Test blood sugar as directed; Fasting and 2hpp largest meal. Watch trends in results. Utilize results and to assess how food, physical activity and medications affect blood sugar results. Bring glucometer or CGM to next visit. Be knowledgeable about diabetes medication, its action, side effects, efficacy, toxicity, prescribed dosage, appropriate timing and frequency of administration, effect of missed and delayed doses and instructions for storage, travel and safety. Problem solving techniques to monitor hypo/hyperglycemia episodes and treatments. Reduce risk reduction behaviors, smoking cessation, regular eye, foot and dental examinations. Coding Level of Care Code Tele Est Pt Level 1 (46133) Diagnoses Uncontrolled type 2 diabetes mellitus E11.65
== END 2025-04-18 10:09 | disposition home or self-care (01) ==
LOC: HO.ENCR 09:22
PROVIDERS: PCP Student in an Organized Health Care Education/Training Program; Visit Provider Registered Nurse Diabetes Educator
DX: E11.65 Type 2 diabetes mellitus with hyperglycemia (principal)
CPT/HCPCS: 99211